=== PATIENT | female | born 1940 | race Caucasian/White ===

== ENCOUNTER 2018-01-11 16:14 | Observation (INO) | payer OTHER ==
[2018-01-11 18:33] LABS: Urine Appearance ND; Urine Bilirubin ND (NEG); Urine Blood ND (NEG); Urine Color OTHER; Urine Glucose ND (NEG); Urine Microscopic Reflex ORDER UMIC; Urine Protein ND (NEG); Urine Specific Gravity ND (1.005-1.030); Urine Urobilinogen ND mg/dL (0.2-1.0); Urine pH ND (5.0-7.0)
[2018-01-11 18:37] LABS: Absolute Lymphocytes (CBC) 2.6 K/uL (0.7-4.9); Absolute Monocytes 0.8 K/uL (0.1-1.3); Absolute Neutrophil 5.3 K/uL (1.8-8.0); Basophils % 1.2 % (0-1.3); Eosinophils % 2.5 % (0-4.4); Hematocrit 41.1 % (36.0-45.0); Lymphocytes % 29.1 % (15.3-44.8); MCH 33.6 pg (27.0-35.0); MCV 100.6 fL (80-100); MPV 8.8 fL (7.6-11.3); Monocytes % 8.7 % (3.3-12.3); RBC Red Blood Cell Count 4.09 M/uL (3.86-4.86)
[2018-01-11 18:43] LABS: Protime INR 0.99
[2018-01-11 18:51] LABS: Urine Bacteria 20-50 /HPF (<20); Urine Culture Reflex Order REFLEXED
[2018-01-11 19:39] LABS: Bilirubin Direct 0.1 mg/dL (0-0.2); Bilirubin Total 0.3 mg/dL (0.2-1.0); Phosphorus 3.6 mg/dL (2.5-4.9); Potassium 3.7 mmol/L (3.5-5.1); Protein, Total 6.7 g/dL (6.4-8.2); Thyroid Stimulating Hormone 2.84 uIU/mL (0.360-3.740)
[2018-01-11 20:08] VITALS: BMI 34.9
[2018-01-11] MEDS ORDERED: ALBUTEROL 2.5 MG/3 ML NEB SOL NEB PRN (20:58)
[2018-01-11] MEDS ORDERED: CEFTRIAXONE 1 GM/NS 50 ML 1 GM/50 ML BAG IV SCH (21:00)
[2018-01-11] MEDS ORDERED: DIPHENHYDRAMINE 25 MG TAB/CAP PO PRN (21:01)
[2018-01-11] MEDS ORDERED: LOPERAMIDE HCL 2 MG CAPSULE PO PRN (21:03)
[2018-01-11] MEDS ORDERED: ONDANSETRON 4 MG (ODT) TAB PO PRN (21:03)
[2018-01-11] MEDS ORDERED: POLYETHYL GLY 3350 17 GM/DOSE PO PRN (21:04)
--- NOTE | 2018-01-11 21:49 | RAD REPORT ---
EXAM DESCRIPTION: Ino Lim (2 Views)01/11/2018 9:42 pm CLINICAL HISTORY: Cough COMPARISON: July 2017 FINDINGS: The lungs appear clear of acute infiltrate. The heart is borderline enlarged IMPRESSION: No acute abnormalities displayed
[2018-01-11] MEDS: NACHLORIDE 0.45% 1,000 ML IV SCH (21:58)
--- NOTE | 2018-01-11 22:00 | RAD REPORT ---
EXAM DESCRIPTION: CT - Abdomen Pelvis W Contrast - 01/11/2018 9:29 pm CLINICAL HISTORY: Abdominal pain/urinary tract infection/dysuria COMPARISON: none. TECHNIQUE: Computed axial tomography of the abdomen pelvis was obtained. 100 cc Isovue-300 was admin istered intravenously. Oral contrast was given All CT scans are performed using dose optimization technique as appropriate and may include automated exposure control or mA/KV adjustment according to patient size. FINDINGS: An 11 millimeter left lower lobe nodule is unchanged T He liver, pancreas, and adrenals appear unremarkable. Small renal cysts are present. A 25 millimeter splenic cyst contains a small peripheral calcification There is no evidence of diverticulitis. The bladder wall is thickened with stranding in the adjacent fat Postsurgical changes involve the lumbar spine. A tiny umbilical hernia is seen IMPRESSION: Thickened bladder wall with stranding in the adjacent fat indicating a cystitis 11 millimeter left lower lobe nodule unchanged from July 2017. However it has enlarged from August 2010 exam in which it measured 6 millimeters. As was previously mentioned a nuclear medicine PET-CT scan is recommended
[2018-01-11] MEDS: TOPIRAMATE 100 MG TAB PO SCH (22:17)
[2018-01-11] MEDS: QUETIAPINE 100MG TAB PO SCH (22:17)
[2018-01-12] MEDS ORDERED: NA CHLORIDE 0.9% 50 ML ONE (00:03)
[2018-01-12] MEDS ORDERED: CEFTRIAXONE 1000 MG/VIAL ONE (00:09)
[2018-01-12] MEDS: ALBUTEROL 2.5 MG/3 ML NEB SOL NEB SCH ×4 (02:00→20:17)
[2018-01-12] MEDS ORDERED: LEVALBUTEROL 1.25 MG/3 ML NEB ONE (03:21)
[2018-01-12 05:02] LABS: Magnesium 1.9 mg/dL (1.8-2.4); Potassium 3.3 mmol/L (3.5-5.1)
[2018-01-12 05:46] LABS: Absolute Lymphocytes (CBC) 2.3 K/uL (0.7-4.9); Absolute Monocytes 0.7 K/uL (0.1-1.3); Absolute Neutrophil 3.7 K/uL (1.8-8.0); Basophils % 1.1 % (0-1.3); Eosinophils % 3.5 % (0-4.4); Hematocrit 37.2 % (36.0-45.0); Lymphocytes % 32.1 % (15.3-44.8); MCH 33.8 pg (27.0-35.0); MCV 100.2 fL (80-100); MPV 8.8 fL (7.6-11.3); Monocytes % 9.9 % (3.3-12.3); RBC Red Blood Cell Count 3.71 M/uL (3.86-4.86)
--- NOTE | 2018-01-12 07:57 | P.CNS ---
Date of Consult: 01/12/18 [employer] Kn[employer] Consult requested. Pt. is a 77 year old , s/p hysterectomy for abnormal pap smears in 1985. She is hospitilized with an uncomplicated UTI, with no hx of fever or flank pain. By history this is her 5th UTI since August. She has no hx of bladder support surgery. There are no documents to review on chart other than CT, which is suggestive only of inflammation around bladder. I don't suspect licensed direct entry midwife origen for her infections and would suggest outpt. evaluation by a urologist. Perhaps a 6 month course of suppressive therapy with trimethoprim would be appropriate to consider.
[2018-01-12] MEDS ORDERED: INFLUENZA VACCINE (for 3y+) 0.5 ML DOSE IMVAC ONE (08:00)
[2018-01-12] MEDS ORDERED: METOPROLOL XL 50 MG TAB PO SCH (09:00)
[2018-01-12] MEDS ORDERED: DULOXETINE 20 MG CAP PO SCH (09:00)
[2018-01-12] MEDS ORDERED: DULOXETINE 30 MG CAP PO SCH (09:00)
--- NOTE | 2018-01-12 09:26 | EKG ---
Test Date: 2018-01-11 Test Time: 17:53:04 [employer]: [employer] MEASUREMENT RESULTS: Intervals: Rate: 56 GA: 168 QRSD: 86 QT: 446 QTc: 430 [place]: P: 0 GA: 168 QRS: 43 T: 41 INTERPRETIVE STATEMENTS: Sinus bradycardia Otherwise normal ECG Compared to ECG 08/07/2011 19:53:12 Sinus rhythm no longer present ST (T wave) deviation no longer present Electronically Signed On 01-12-18 09:24:10 CDT by Luis Reveles
[2018-01-12] MEDS: DULOXETINE 30 MG CAP PO SCH ×2 (10:16→21:17)
[2018-01-12] MEDS: POTASSIUM CL SA 10 MEQ TAB PO SCH ×2 (10:16→21:16)
[2018-01-12] MEDS: GABAPENTIN 300 MG CAP PO SCH ×3 (10:17→21:17)
[2018-01-12] MEDS: CEFTRIAXONE/SWI 1gm 1 GM/10 ML SYR IV SCH ×2 (10:17→21:18)
[2018-01-12] MEDS: TOPIRAMATE 100 MG TAB PO SCH ×3 (10:18→21:49)
[2018-01-12] MEDS: MEMANTINE HCL 10 MG TABLET PO SCH ×2 (10:19→21:18)
[2018-01-12] MEDS: ENOXAPARIN 40 MG/0.4 ML SQ SCH (10:22)
[2018-01-12] MEDS: METOPROLOL XL 50 MG TAB PO SCH ×2 (10:22→18:26)
[2018-01-12] MEDS: TRAMADOL HCL 50 MG TAB PO SCH ×2 (12:21→21:17)
[2018-01-12] MEDS: INDAPAMIDE 1.25 MG TAB PO SCH (12:22)
[2018-01-12 12:39] LABS: Urine Appearance CLOUDY; Urine Bilirubin NEGATIVE (NEG); Urine Blood 2+ (NEG); Urine Color DK YELLOW; Urine Glucose NEGATIVE (NEG); Urine Protein 1+ (NEG); Urine Specific Gravity 1.015 (1.005-1.030); Urine Urobilinogen 0.2 mg/dL (0.2-1.0); Urine pH 7.5 (5.0-7.0)
[2018-01-12 12:47] LABS: Urine Microscopic Reflex ORDER UMIC
[2018-01-12 13:08] LABS: Urine Bacteria 20-50 /HPF (<20); Urine Culture Reflex Order REFLEXED
--- NOTE | 2018-01-12 14:13 | CON ---
History Of Present Illness: This is a pleasant 77-year-old lady, a patient of Dr. Dougherty, who has bee n having recurrent urinary tract infections. She said she has had 5 infections since August of this yea r, which is almost one every month or so. Last time on 12/03/2017, she had E coli that was pansensit giselle and in April 2016, she had a Klebsiella pneumoniae infection that was pretty much pansensitive with intermediate sensitivity to cephalosporin, resistant to nitrofurantoin and the computer shows an other E coli infection in March 2016 that was pansensitive. So, according to the computer, she romero s an occasional UTI, but she said she has had 5 since August. She has no other urinary symptoms except burning normally. She does not have any frequency, hesitancy, nocturia, decrease in force of stream or postvoid dribbling. She only drinks 1 to 2 small bottles of water a day, so she is definitely deh ydrated. She needs to increase her fluids. Continue taking probiotics, take cranberry juice and D-M annose 1500 mg a day for prevention. She said her mom had these problems too when she got older, but last year and so she did pretty well. Past Medical History: History of benign hypertension, obstructive sleep apnea, Meniere disease, esop hageal stenosis. Past Surgical History: Tonsillectomy, breast biopsy, hysterectomy, appendectomy, left mastectomy, to rodger right knee replacement. Allergies: CLINDAMYCIN CAUSES RASH, PENICILLIN CAUSES RASH, SULFA CAUSES RASH, PROPOXYPHENE FROM ANDREA VOCET, AND SOME UNKNOWN ALLERGIES, STRAWBERRY SOME RASH. Active Medications: Albuterol, Lipitor, ceftriaxone now, Benadryl, Cymbalta, Lovenox, Neurontin, Sona ol, Imodium, Namenda, Zofran GlycoLax, potassium, Seroquel, Topamax, Ultram. Social History: No tobacco. No smoking. Family History: Noncontributory. Review of Systems: 10-point review of systems is essentially negative. Physical Examination: GENERAL: She is lying in bed, resting comfortable. Normal-appearing patient. VITAL SIGNS: Temperature 97.2, pulse 57, respirations 16, blood pressure 99/54, sats 93%. HEENT: Atraumatic, normocephalic. CHEST: Clear. HEART: S1, S2. ABDOMEN: Soft, nontender. EXTREMITIES: Normal range of motion. Laboratory Data: White count 7.0, H and H is 12.5 and 37, platelet 199. Coagulation studies normal with a PTT 22.5. Chemistry shows slightly low potassium 3.3 with sodium 139, chloride 103, carbon di oxide 24, BUN 16, creatinine 1.0, GFR 54, glucose 96, calcium 8.2. Urine culture is pending. The UA shows 10 to 20 rbc's, greater than 50 wbc's and bacteria 20 to 50. Assessment: Recurrent urinary tract infection. Plan: Await for culture and sensitivity based on antibiotics and that she needs to hydrate a lot mor e. She should be drinking about half her body weight in ounces per day, taking probiotics every day, cranberry pills and D-Mannose [address] scan was reviewed and there are no significan t finding for any cause for UTI. No stones. No hydronephrosis and some inflammation around the blad leora consistent with a UTI. She may also need possible prophylactic once a day antibiotics in the nex t 6 months. ROBERT/RADHA Voice ID: [id number] Report ID: [id number]
--- NOTE | 2018-01-12 17:58 | PN ---
Subjective: Ms. Calabrese has had about 5 to 6 UTI's with treatment given for Cipro and Ceftin off and on. Cultures have been sensitive to this antibiotics. She fails to improve, continues to have lowe r abdominal pain and severely putrid smell of the urine, so I decided to admit her for IV antibiotics and have consulted from SOFTWARE ENGINEER ADVISOR and Urology. Dr. Marti saw the patient this morning, he did not fin d anything obvious on his side. I ordered a CT scan of abdomen pelvis with contrast, which showed no major findings. She does have a nodule, which is in the lung, which is about 11 mm slightly bigger than before about 5 years ago. On investigations, as above plus potassium 2.2, BUN, creatinine megan l. UA is positive for more than 50 WBCs and leukocyte esterase is pending. Assessment And Plan: 1.Recurrent urinary tract infection. Consult Dr. Nolen. Possible cystoscopy. Prognosis remains gu arded. She had extremely poor hygiene at home and that is one reason why she continues to have infec tions. We do not find any gynecological reasons on the CT scan of abdomen and pelvis did not show ob struction of urinary flow. Now we need a cystoscopy to figure out anything inside the bladder, which could be causing these bladder infections like a bladder cancer. 2.Diabetes, high blood pressure, degenerative joint disease. Continues to be stable at this point. JONATHAN/RADHA Voice ID: [id number] Report ID: [id number]
--- NOTE | 2018-01-12 18:23 | RAD REPORT ---
EXAM DESCRIPTION: RAD - Chest Single View - 01/12/2018 6:00 pm CLINICAL HISTORY: PICC line placement COMPARISON: January 11 FINDINGS: Portable chest was obtained following placement of a right upper extremity PICC line. The catheter tip is in the mid SVC.
[2018-01-12] MEDS: ATORVASTATIN 20 MG TAB PO SCH (21:16)
[2018-01-12] MEDS: QUETIAPINE 100MG TAB PO SCH (21:18)
[2018-01-13] MEDS: ALBUTEROL 2.5 MG/3 ML NEB SOL NEB SCH ×4 (01:29→19:56)
[2018-01-13 05:22] LABS: Absolute Lymphocytes (CBC) 2.5 K/uL (0.7-4.9); Absolute Monocytes 0.6 K/uL (0.1-1.3); Absolute Neutrophil 3.2 K/uL (1.8-8.0); Eosinophils % 3.1 % (0-4.4); Lymphocytes % 38.6 % (15.3-44.8); MCH 33.8 pg (27.0-35.0); MCV 99.3 fL (80-100); MPV 9.1 fL (7.6-11.3); Monocytes % 8.4 % (3.3-12.3); RBC Red Blood Cell Count 3.73 M/uL (3.86-4.86)
[2018-01-13 05:36] LABS: Potassium 3.1 mmol/L (3.5-5.1)
[2018-01-13] MEDS: METOPROLOL XL 50 MG TAB PO SCH ×2 (05:43→17:48)
[2018-01-13] MEDS: NACHLORIDE 0.45% 1,000 ML IV SCH (05:43)
[2018-01-13] MEDS: POTASSIUM CL SA 10 MEQ TAB PO SCH ×2 (07:42→21:17)
[2018-01-13] MEDS: TRAMADOL HCL 50 MG TAB PO SCH ×2 (09:00→21:00)
[2018-01-13] MEDS: DULOXETINE 30 MG CAP PO SCH ×2 (09:22→21:17)
[2018-01-13] MEDS: ENOXAPARIN 40 MG/0.4 ML SQ SCH (09:22)
[2018-01-13] MEDS: INDAPAMIDE 1.25 MG TAB PO SCH (09:23)
[2018-01-13] MEDS: CEFTRIAXONE/SWI 1gm 1 GM/10 ML SYR IV SCH ×2 (09:26→21:16)
[2018-01-13] MEDS: MEMANTINE HCL 10 MG TABLET PO SCH ×2 (09:26→21:18)
[2018-01-13] MEDS: GABAPENTIN 300 MG CAP PO SCH ×3 (09:26→21:17)
[2018-01-13] MEDS: TOPIRAMATE 100 MG TAB PO SCH ×2 (09:26→21:19)
--- NOTE | 2018-01-13 18:22 | PN ---
Subjective: The patient is stable. Multiple family members present in the room of 5. Objective: Her urine culture came back E. coli, pansensitive. Vital Sign: She is afebrile, stable. Her white count is still normal at 6.6, H and H 12.6 and 37, platelet 218. . Assessment And Plan: Plan is to send the patient home. She is to bathe every day. Apparently, she was not doing that at home. She is to drink lots of water. We are going to give her Macrobid 1 p.o. b.i.d. with food #14, then she is to go on Macrodantin 50 mg 1 p.o. daily with food for 90 days with 1 refill, and she can follow up with me in 1 week. She is okay for discharge today. LOGAN Voice ID: [id number] Report ID: [id number]
[2018-01-13] MEDS: ATORVASTATIN 20 MG TAB PO SCH (21:18)
[2018-01-13] MEDS: QUETIAPINE 100MG TAB PO SCH (21:18)
[2018-01-14] MEDS: ALBUTEROL 2.5 MG/3 ML NEB SOL NEB SCH ×3 (03:53→14:00)
[2018-01-14 05:11] LABS: Absolute Lymphocytes (CBC) 2.6 K/uL (0.7-4.9); Absolute Monocytes 0.6 K/uL (0.1-1.3); Absolute Neutrophil 3.1 K/uL (1.8-8.0); Eosinophils % 3.8 % (0-4.4); Lymphocytes % 38.5 % (15.3-44.8); MCH 33.9 pg (27.0-35.0); MCV 100.6 fL (80-100); MPV 8.5 fL (7.6-11.3); Monocytes % 9.5 % (3.3-12.3); RBC Red Blood Cell Count 3.68 M/uL (3.86-4.86)
[2018-01-14 05:18] LABS: Magnesium 1.8 mg/dL (1.8-2.4); Potassium 3.2 mmol/L (3.5-5.1)
[2018-01-14] MEDS ORDERED: POTASSIUM CL SA 10 MEQ TAB PO ONE (08:21)
[2018-01-14] MEDS: POTASSIUM CL SA 10 MEQ TAB PO SCH (08:22)
[2018-01-14] MEDS: CEFTRIAXONE/SWI 1gm 1 GM/10 ML SYR IV SCH (08:35)
[2018-01-14] MEDS: MEMANTINE HCL 10 MG TABLET PO SCH (08:35)
[2018-01-14] MEDS: GABAPENTIN 300 MG CAP PO SCH (08:36)
[2018-01-14] MEDS: DULOXETINE 30 MG CAP PO SCH (08:37)
[2018-01-14] MEDS: METOPROLOL XL 50 MG TAB PO SCH (08:37)
[2018-01-14] MEDS: TOPIRAMATE 100 MG TAB PO SCH (08:40)
[2018-01-14] MEDS: ENOXAPARIN 40 MG/0.4 ML SQ SCH (08:40)
[2018-01-14] MEDS: INDAPAMIDE 1.25 MG TAB PO SCH (09:00)
--- NOTE | 2018-01-14 09:15 | PN ---
Subjective: The patient has improved about 50%. Denies any chest pain, nausea , vomiting, diarrhea, or coughing. Physical Examination: Vital Signs: Blood pressure 118/59. Pulse is 55. CHEST: Clear. Heart: Regular. Abdomen: No guarding, rebound, or rigidity. On full investigation, CT abdomen, chest, and pelvis did not show any abnormalities. Dr. Nolen performed postvoid residual. She has normal residual. Her urine culture is growing gram-negative bacilli, E coli, and seems to be sensitive to all the antibiotics. Assessment And Planning: Recurrent UTI. In the past, the patient has had multiple antibiotics given for about the last 4 months for the same bacteria. 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 She does not get bath possibly on a daily basis, not maybe once a week. Her clothes have severe smell all the time. Her house is full of junk according to home health nurses and the care given by the people around is probably not good enough to clean her area appropriately, so she does not get infections, which is what I stressed today with the family, which is daughter that she has to be clean every single day, shower every day, and clean from front to back, use Bidet to spray water and clean the area after every time she urinates or has bowel movement , and keep the area very dry in the amanda-area to prevent infection. JONATHAN/RADHA Voice ID: [id number] Report ID: [id number]
[2018-01-14 10:21] VITALS: TEMP 98.8
[2018-01-14] MEDS: TRAMADOL HCL 50 MG TAB PO SCH (11:16)
[2018-01-14 11:34] VITALS: O2SAT 90
[2018-01-14 14:34] VITALS: BP 128/58
--- NOTE | 2018-01-14 17:30 | PN ---
Subjective: The patient is doing well, ready for discharge. Objective: Vital Signs: Afebrile. Vital signs are stable. Laboratory Data: Labs are stable. White count 6.6, H and H 12.5 and 37.0, platelet count 204. Assessment: Escherichia coli. Urinary tract infection. Plan: To shower daily, take her medications, hydrate daily well. Follow up in a month. Has been on prophylaxis for 6 months. LOGAN Voice ID: [id number] Report ID: [id number]
--- NOTE | 2018-01-15 06:37 | DS ---
Date of Discharge: 01/14/2018 Final Diagnosis: Recurrent severe urinary tract infection. Secondary Diagnoses: Diabetes, poor hygiene, high blood pressure, osteoarthritis. Hospital Course: The patient is a 77-year-old with past medical history of above medical problems, h as had 5 infections in the last 5-6 months of UTI, but on further details we find out that she is wip ing her urine area back to front and the same for the stool area, and the hygiene is poor. I have ad vised family to get Bidet to clean to have hooked up on the commode and clean her amanda area properly on daily basis, get shower every day, and get a very good hygiene which will improve and prevent the urinary tract infections. She does not have any physical reasons why she will have UTI besides that. CT scan of abdomen and pelvis with contrast, negative. No postvoid residual in the urinary bladder . Patient is discharged in stable condition on Ceftin 250 b.i.d. She grew E coli which is sensitive to Ceftin 250 b.i.d. for about 10 days, and further details given about the UTI. JOANTHAN/RADHA Voice ID: [id number] Report ID: [id number]
[2018-01-15 16:08] LABS: Vitamin D 1,25-Dihydroxy Total 27 pg/mL (18-72); Vitamin D,1,25-OH2, D2 <8 pg/mL
== END 2018-01-14 15:20 | disposition home or self-care (01) ==
LOC: INTOOBSV 16:48 → 2ND 16:48
PROVIDERS: ADMIT Internal Medicine; ATTEND Internal Medicine
DX: N39.0 Urinary tract infection, site not specified (principal); B96.20 Unspecified Escherichia coli [E. coli] as the cause of diseases classified elsewhere; E11.9 Type 2 diabetes mellitus without complications; M19.90 Unspecified osteoarthritis, unspecified site; I10 Essential (primary) hypertension; R46.0 Very low level of personal hygiene; Z23 Encounter for immunization; Z88.0 Allergy status to penicillin; Z88.2 Allergy status to sulfonamides
CPT/HCPCS: 36415 ×3; 71045; 71046; 74177; 80048 ×4; 80076; 82607; 82652; 83735 ×4; 84100; 84443; 85025 ×4; 85610; 85730; 87040; 87077; 87086; 87088; 87186; 93005; 94640; G0008; G0378; G0379; J0696 ×5; J1650 ×3; Q2035; Q9967; 81003; 81015

== ENCOUNTER 2019-02-05 08:45 | Emergency (ER) | payer OTHER ==
[2019-02-05 10:30] LABS: Urine RBC LOADED /HPF (NONE SEEN)
[2019-02-05 10:31] LABS: Urine Bacteria >50 /HPF (<20); Urine Culture Reflex Order REFLEXED; Urine Mucus SLIGHT /HPF (NONE SEEN)
[2019-02-05 10:55] LABS: Urine Blood 3+ (NEG); Urine Glucose TRACE (NEG); Urine Protein 3+ (NEG)
--- NOTE | 2019-02-05 11:27 | ER ---
Nurse's Notes [facility] Name: Agnes Calabrese Age: 79 yrs Sex: Female : 1940 Arrival Date: 02/05/2019 Time: 08:47 Bed 8 Private MD: Garrett Dougherty V Diagnosis: Urinary tract infection, site not specified Presentation: 02/05 09:01 Presenting complaint: Patient states: Pain with urination and urinary frequency that ss began at 0500 this AM. Patient was treated for UTI 1 month ago, and is on maintenance dose of Macrodantin for recurrent UTI. Transition of care: patient was not received from another setting of care. Onset of symptoms was February 05, 2019. Risk Assessment: Do you want to hurt yourself or someone else? Patient reports no desire to harm self or others. Initial Sepsis Screen: Does the patient have a suspected source of infection? Yes: Dysuria/Frequency/Urgency/UTI. Care prior to arrival: None. 09:01 Method Of Arrival: Ambulatory ss 09:01 Acuity: WARREN 4 ss 09:02 Initial Sepsis Screen: Does the patient meet any 2 criteria? No. Patient's initial hb sepsis screen is negative. Historical: - Allergies: 09:02 clindamycin HCl (bulk); hb 09:02 Darvocet-N 100; hb 09:02 PENICILLINS; hb 09:02 Sulfa (Sulfonamide Antibiotics); hb - Home Meds: 09:02 duloxetine 60 mg Oral cpDR 2 caps once daily [Active]; Macrodantin 50 mg Oral cap 1 cap hb once daily [Active]; metoprolol succinate 50 mg Oral Tb24 1 tab once daily [Active]; potassium chloride 10 mEq Oral cpER 1 cap 2 times per day [Active]; Seroquel 100 mg Oral tab daily [Active]; simvastatin 40 mg Oral tab 1 tab once daily [Active]; spironolactone 20mg Oral once daily [Active]; tramadol 50 mg Oral tab 2 times daily [Active]; - PMHx: 09:02 Cancer; Depression; Fibromyalgia; GERD; insomnia; lymphedema; skipped heart beats; hb - PSHx: 09:02 cervical fusion; knee replacements; Appendectomy; lumbar fusion; Hysterectomy; hb Mastectomy, Left; - Immunization history:: Adult Immunizations up to date, Adult Immunizations up to date. - Social history:: Smoking status: Patient/guardian denies using tobacco, Smoking status: Patient/guardian denies using tobacco. - Ebola Screening: : No symptoms or risks identified at this time Patient denies exposure to infectious person Patient denies travel to an Ebola-affected area in the 21 days before illness onset. Screenin:01 Abuse screen: Denies threats or abuse. Denies injuries from another. Nutritional hb screening: No deficits noted. Tuberculosis screening: No symptoms or risk factors identified. Fall Risk None identified. Assessment: 09:00 General: Appears in no apparent distress. Behavior is calm, cooperative. Pain: Pain hb currently is 7 out of 10 on a pain scale. Neuro: Level of Consciousness is awake, alert, obeys commands, Oriented to person, place, time, situation. Cardiovascular: Capillary refill < 3 seconds Patient's skin is warm and dry. Respiratory: Airway is patent Respiratory effort is even, unlabored, Respiratory pattern is regular, symmetrical. GI: Abdomen is non-distended, Reports lower abdominal pain. : Reports burning with urination, pain in suprapubic area with urination. EENT: No signs and/or symptoms were reported regarding the EENT system. Derm: Skin is pink, warm \T\ dry. Musculoskeletal: No signs and/or symptoms reported regarding the musculoskeletal system. 09:52 Reassessment: Patient appears in no apparent distress at this time. No changes from hb previously documented assessment. Patient and/or family updated on plan of care and expected duration. Pain level reassessed. Patient is alert, oriented x 3, equal unlabored respirations, skin warm/dry/pink. 10:31 Reassessment: Patient appears in no apparent distress at this time. No changes from hb previously documented assessment. Patient and/or family updated on plan of care and expected duration. Pain level reassessed. Patient is alert, oriented x 3, equal unlabored respirations, skin warm/dry/pink. 11:30 Reassessment: Patient appears in no apparent distress at this time. Patient and/or hb family updated on plan of care and expected duration. Pain level reassessed. Patient is alert, oriented x 3, equal unlabored respirations, skin warm/dry/pink. Vital Signs: 09:01 BP 130 / 77; Pulse 71; Resp 18; Temp 97.8(TE); Pulse Ox 95% ; Weight 96.62 kg; Height 5 ft. 3 in. (160.02 cm); Pain 8/10; 10:15 BP 128 / 74; Pulse 70; Resp 14; Pulse Ox 100% on R/A; hb 11:30 BP 126 / 76; Pulse 68; Resp 16; Pulse Ox 100% on R/A; hb 09:01 Body Mass Index 37.73 (96.62 kg, 160.02 cm) ED Course: 08:47 Patient arrived in ED. ag5 08:47 Garrett Dougherty MD is Private Physician. ag5 08:54 Palomo Ferreira MD is Attending Physician. 09:01 Charis Hong RN is Primary Nurse. hb 09:01 Arm band placed on. hb 09:02 Triage completed. ss 09:11 Patient has correct armband on for positive identification. Bed in low position. Call hb light in reach. Side rails up X 1. 11:27 Garrett Dougherty MD is Referral Physician. gs 11:59 No provider procedures requiring assistance completed. Patient did not have IV access hb during this emergency room visit. Administered Medications: 11:41 Drug: Rocephin (cefTRIAXone) 1 grams Route: IM; Site: right ventrogluteal; hb 11:59 Follow up: Response: No adverse reaction hb Outcome: 11:27 Discharge ordered by . gs 11:59 Discharged to home ambulatory. hb 11:59 Condition: stable 11:59 Discharge instructions given to patient, Instructed on discharge instructions, follow up and referral plans. medication usage, Demonstrated understanding of instructions, follow-up care, medications, Prescriptions given X 1. 12:00 Patient left the ED. hb Signatures: Korina Trevino RN RN Charis Hong RN RN Palomo Ferreira MD MD Dav Vasquez ag5 Corrections: (The following items were deleted from the chart) 09:03 09:01 Initial Sepsis Screen: Does the patient meet any 2 criteria? hb hb
--- NOTE | 2019-02-05 11:28 | EDPHYS ---
Physician Documentation [facility] Name: Agnes Calabrese Age: 79 yrs Sex: Female : 1940 Arrival Date: 02/05/2019 Time: 08:47 Bed 8 Private MD: Garrett Dougherty V ED Physician Palomo Ferreira HPI: 02/05 11:25 This 79 yrs old Female presents to ER via Ambulatory with complaints of Pain gs With Urination. 11:25 Onset: The symptoms/episode began/occurred this morning. Associated signs and symptoms: gs Pertinent negatives: fever, vomiting. Severity of symptoms: At their worst the symptoms were moderate, in the emergency department the symptoms are unchanged. The patient has experienced similar episodes in the past, a few times. The patient has not recently seen a physician. Historical: - Allergies: 09:02 clindamycin HCl (bulk); hb 09:02 Darvocet-N 100; hb 09:02 PENICILLINS; hb 09:02 Sulfa (Sulfonamide Antibiotics); hb - Home Meds: 09:02 duloxetine 60 mg Oral cpDR 2 caps once daily [Active]; Macrodantin 50 mg Oral cap 1 cap hb once daily [Active]; metoprolol succinate 50 mg Oral Tb24 1 tab once daily [Active]; potassium chloride 10 mEq Oral cpER 1 cap 2 times per day [Active]; Seroquel 100 mg Oral tab daily [Active]; simvastatin 40 mg Oral tab 1 tab once daily [Active]; spironolactone 20mg Oral once daily [Active]; tramadol 50 mg Oral tab 2 times daily [Active]; - PMHx: 09:02 Cancer; Depression; Fibromyalgia; GERD; insomnia; lymphedema; skipped heart beats; hb - PSHx: 09:02 cervical fusion; knee replacements; Appendectomy; lumbar fusion; Hysterectomy; hb Mastectomy, Left; - Immunization history:: Adult Immunizations up to date, Adult Immunizations up to date. - Social history:: Smoking status: Patient/guardian denies using tobacco, Smoking status: Patient/guardian denies using tobacco. - Ebola Screening: : No symptoms or risks identified at this time Patient denies exposure to infectious person Patient denies travel to an Ebola-affected area in the 21 days before illness onset. ROS: 11:25 Abdomen/GI: Positive for diarrhea, chronic. gs 11:25 All other systems are negative. Exam: 11:25 Head/Face: Normocephalic, atraumatic. Eyes: Pupils equal round and reactive to light, gs extra-ocular motions intact. Lids and lashes normal. Conjunctiva and sclera are non-icteric and not injected. Cornea within normal limits. Periorbital areas with no swelling, redness, or edema. ENT: Nares patent. No nasal discharge, no septal abnormalities noted. Tympanic membranes are normal and external auditory canals are clear. Oropharynx with no redness, swelling, or masses, exudates, or evidence of obstruction, uvula midline. Mucous membranes moist. Neck: Trachea midline, no thyromegaly or masses palpated, and no cervical lymphadenopathy. Supple, full range of motion without nuchal rigidity, or vertebral point tenderness. No Meningismus. Chest/axilla: Normal chest wall appearance and motion. Nontender with no deformity. No lesions are appreciated. Cardiovascular: Regular rate and rhythm with a normal S1 and S2. No gallops, murmurs, or rubs. Normal PMI, no JVD. No pulse deficits. Respiratory: Lungs have equal breath sounds bilaterally, clear to auscultation and percussion. No rales, rhonchi or wheezes noted. No increased work of breathing, no retractions or nasal flaring. Abdomen/GI: Soft, non-tender, with normal bowel sounds. No distension or tympany. No guarding or rebound. No evidence of tenderness throughout. Back: No spinal tenderness. No costovertebral tenderness. Full range of motion. Skin: Warm, dry with normal turgor. Normal color with no rashes, no lesions, and no evidence of cellulitis. MS/ Extremity: Pulses equal, no cyanosis. Neurovascular intact. Full, normal range of motion. Neuro: Awake and alert, GCS 15, oriented to person, place, time, and situation. Cranial nerves II-XII grossly intact. Motor strength 5/5 in all extremities. Sensory grossly intact. Cerebellar exam normal. Normal gait. 11:25 Constitutional: The patient appears alert, awake. Vital Signs: 09:01 BP 130 / 77; Pulse 71; Resp 18; Temp 97.8(TE); Pulse Ox 95% ; Weight 96.62 kg; Height 5 ss ft. 3 in. (160.02 cm); Pain 8/10; 10:15 BP 128 / 74; Pulse 70; Resp 14; Pulse Ox 100% on R/A; hb 11:30 BP 126 / 76; Pulse 68; Resp 16; Pulse Ox 100% on R/A; hb 09:01 Body Mass Index 37.73 (96.62 kg, 160.02 cm) MDM: 09:59 Patient medically screened. gs 11:25 Differential diagnosis: urinary tract infection. Data reviewed: vital signs, nurses gs notes, lab test result(s). Counseling: I had a detailed discussion with the patient and/or guardian regarding: lab results, the need for outpatient follow up. Response to treatment: the patient's symptoms have markedly improved after treatment. 02/05 09:03 Order name: Urine Microscopic Only; Complete Time: 11:01 gs 02/05 09:55 Order name: Urine Dipstick--Ancillary (enter results); Complete Time: 11:01 eb 02/05 09:03 Order name: Urine Dipstick-Ancillary (obtain specimen); Complete Time: 09:21 02/05 10:33 Order name: Urine Culture EDMS Administered Medications: 11:41 Drug: Rocephin (cefTRIAXone) 1 grams Route: IM; Site: right ventrogluteal; hb 11:59 Follow up: Response: No adverse reaction hb Disposition: 02/05/19 11:27 Discharged to Home. Impression: Urinary tract infection, site not specified. - Condition is Stable. - Discharge Instructions: Dysuria, Urinary Tract Infection, Adult. - Prescriptions for Keflex 500 mg Oral Capsule - take 1 capsule by ORAL route every 12 hours for 10 days; 20 capsule. - Medication Reconciliation Form, Thank You Letter, Antibiotic Education, Prescription Opioid Use form. - Follow up: Garrett Dougherty MD; When: 2 - 3 days; Reason: Re-evaluation by your physician. Signatures: [facility] Korina Trevino RN RN Charis Hong RN RN Palomo Ferreira MD MD Corrections: (The following items were deleted from the chart) 12:00 11:27 02/05/2019 11:27 Discharged to Home. Impression: Urinary tract infection, site hb not specified. Condition is Stable. Forms are Medication Reconciliation Form, Thank You Letter, Antibiotic Education, Prescription Opioid Use. Follow up: Garrett Dougherty; When: 2 - 3 days; Reason: Re-evaluation by your physician. gs
[2019-02-05] MEDS ORDERED: CEFTRIAXONE 1000 MG/VIAL ONE (11:34)
[2019-02-05] MEDS ORDERED: LIDOCAINE 1% MPF 2 ML AMPULE ONE (11:34)
[2019-02-05 12:06] VITALS: TEMP 97.8
[2019-02-05 12:07] VITALS: O2SAT 100
[2019-02-05 12:08] VITALS: BP 126/76
== END 2019-02-05 12:00 | disposition home or self-care (01) ==
LOC: ER 08:45
DX: N39.0 Urinary tract infection, site not specified (principal); F32.9 Major depressive disorder, single episode, unspecified; Z85.9 Personal history of malignant neoplasm, unspecified; Z88.0 Allergy status to penicillin; Z88.2 Allergy status to sulfonamides; Z88.3 Allergy status to other anti-infective agents; Z88.5 Allergy status to narcotic agent
CPT/HCPCS: 87088; 96372; 99283; J2001; 81003; 81015; 87086

== ENCOUNTER 2019-05-13 12:55 | Emergency (ER) | payer OTHER ==
[2019-05-13] MEDS ORDERED: TRAMADOL HCL 50 MG TAB ONE (13:28)
--- NOTE | 2019-05-13 13:47 | RAD REPORT ---
EXAM DESCRIPTION: CT - Head Brain Wo Cont - 05/13/2019 1:39 pm CLINICAL HISTORY: HEADACHE Trauma, head injury COMPARISON: Facial Bones W/ Mpr dated 05/13/2019; HEAD BRAIN W O CONTRAST dated 11/24/2012 TECHNIQUE: All CT scans are performed using dose optimization technique as appropriate and may inclu de automated exposure control or mA/KV adjustment according to patient size. FINDINGS: No intracranial hemorrhage, hydrocephalus or extra-axial fluid collection.No areas of brai n edema or evidence of midline shift. The paranasal sinuses and mastoids are clear. The calvarium is intact. IMPRESSION: No acute intracranial abnormality.
--- NOTE | 2019-05-13 13:51 | RAD REPORT ---
EXAM DESCRIPTION: CT - CTFB CLINICAL HISTORY: FACIAL PAIN Trauma, facial pain and injury COMPARISON: No comparisons TECHNIQUE: Axial 2 mm thick images of the face were obtained with sagittal and coronal reconstructio n images. All CT scans are performed using dose optimization technique as appropriate and may include automated exposure control or mA/KV adjustment according to patient size. FINDINGS: Mild nasal bone fracture is present.The mandible is intact. The globes and orbital contents are grossly unremarkable.The paranasal sinuses and mastoids are clear . IMPRESSION: Nasal bone fracture.
--- NOTE | 2019-05-13 14:07 | ER ---
Nurse's Notes [facility] Name: Agnes Calabrese Age: 79 yrs Sex: Female : 1940 Arrival Date: 05/13/2019 Time: 12:56 Bed 20 Private MD: Garrett Dougherty V Diagnosis: Fracture of nasal bones Presentation: 05/13 13:02 Presenting complaint: Patient states: "I tripped on a curve and fell onto face". Denies aa5 LOC. Pt c/o michael knees and face pain. Transition of care: patient was not received from another setting of care. Onset of symptoms was May 13, 2019. Risk Assessment: Do you want to hurt yourself or someone else? Patient reports no desire to harm self or others. Initial Sepsis Screen: Does the patient meet any 2 criteria? No. Patient's initial sepsis screen is negative. Does the patient have a suspected source of infection? No. Patient's initial sepsis screen is negative. Care prior to arrival: None. 13:02 Acuity: WARREN 4 aa5 13:02 Method Of Arrival: Wheelchair aa5 Historical: - Allergies: 13:04 clindamycin HCl (bulk); aa5 13:04 Darvocet-N 100; aa5 13:04 PENICILLINS; aa5 13:04 Sulfa (Sulfonamide Antibiotics); aa5 - Home Meds: 13:04 duloxetine 60 mg Oral cpDR 2 caps once daily [Active]; Macrodantin 50 mg Oral cap 1 cap aa5 once daily [Active]; metoprolol succinate 50 mg Oral Tb24 1 tab once daily [Active]; potassium chloride 10 mEq Oral cpER 1 cap 2 times per day [Active]; Seroquel 100 mg Oral tab daily [Active]; simvastatin 40 mg Oral tab 1 tab once daily [Active]; spironolactone 20mg Oral once daily [Active]; tramadol 50 mg Oral tab 2 times daily [Active]; - PMHx: 13:04 Cancer; Depression; Fibromyalgia; GERD; insomnia; lymphedema; skipped heart beats; aa5 - PSHx: 13:04 cervical fusion; knee replacements; Appendectomy; lumbar fusion; Hysterectomy; aa5 Mastectomy, Left; - Immunization history:: Adult Immunizations unknown. - Social history:: Smoking status: Patient denies any tobacco usage or history of. - Ebola Screening: : No symptoms or risks identified at this time. Screenin:36 Abuse screen: Denies threats or abuse. Nutritional screening: No deficits noted. tw2 Tuberculosis screening: No symptoms or risk factors identified. Fall Risk Secondary diagnosis (15 points) impaired mobility. Assessment: 13:10 General: Appears in no apparent distress. slender, well groomed, Behavior is calm, tw2 cooperative, appropriate for age. Pain: Complains of pain in face and nose. Neuro: Level of Consciousness is awake, alert, obeys commands, Oriented to person, place, time, situation. Cardiovascular: Patient's skin is warm and dry. Respiratory: Airway is patent Respiratory effort is even, unlabored, Respiratory pattern is regular, symmetrical. GI: No signs and/or symptoms were reported involving the gastrointestinal system. : No signs and/or symptoms were reported regarding the genitourinary system. EENT: Reports pain in nose. Derm: No signs and/or symptoms reported regarding the dermatologic system. Musculoskeletal: Range of motion: intact in all extremities. 14:33 Reassessment: Patient appears in no apparent distress at this time. No changes from tw2 previously documented assessment. Patient and/or family updated on plan of care and expected duration. Pain level reassessed. Patient is alert, oriented x 3, equal unlabored respirations, skin warm/dry/pink. Vital Signs: 13:05 BP 117 / 85; Pulse 58; Resp 16 S; Temp 97.2(TE); Pulse Ox 97% on R/A; Weight 95.25 kg aa5 (R); Height 5 ft. 3 in. (160.02 cm) (R); 13:05 Body Mass Index 37.20 (95.25 kg, 160.02 cm) aa5 ED Course: 12:56 Patient arrived in ED. as 12:57 Garrett Dougherty MD is Private Physician. as 13:03 Triage completed. aa5 13:03 Arm band placed on. aa5 13:06 Bed in low position. Call light in reach. Side rails up X2. synthetic soil blocks pulper on. Pulse tw2 ox on. NIBP on. Warm blanket given. 13:08 [facility] Mercado [facility]C [facility] kb 13:08 Kevin Ordonez MD is Attending Physician. kb 13:15 Nohemi Beard, RN is Primary Nurse. tw2 13:40 CT Head Brain wo Cont In Process Unspecified. EDMS 13:41 CT Facial Bones W/O Con In Process Unspecified. EDMS 14:06 Garrett Dougherty MD is Referral Physician. kb 14:36 No provider procedures requiring assistance completed. Patient did not have IV access tw2 during this emergency room visit. Administered Medications: 13:27 Drug: traMADol 50 mg Route: PO; tw2 14:07 Follow up: Response: No adverse reaction; Pain is decreased tw2 14:08 Drug: Cipro 500 mg Route: PO; tw2 14:22 Follow up: Response: No adverse reaction tw2 Outcome: 14:06 Discharge ordered by MD. kb 14:36 Discharged to home via wheelchair, with family. tw2 14:36 Condition: stable 14:36 Discharge instructions given to patient, family, Instructed on discharge instructions, follow up and referral plans. no drinking with medication, no driving heavy equipment, medication usage, Demonstrated understanding of instructions, follow-up care, medications, Prescriptions given X 2. 14:37 Patient left the ED. tw2 Signatures: Dispatcher [employer] EDMS Nadiya Mercado, IRON PLASTIC BULLET MAKER-C IRON PLASTIC BULLET MAKER-Hanane Thomas Audri, RN RN aa5 Nohemi Beard, RN RN tw2
--- NOTE | 2019-05-13 14:07 | EDPHYS ---
Physician Documentation [facility] Name: Agnes Calabrese Age: 79 yrs Sex: Female : 1940 Arrival Date: 05/13/2019 Time: 12:56 Bed 20 Private MD: Garrett Dougherty V ED Physician Kevin Ordonez HPI: 05/13 13:26 This 79 yrs old Female presents to ER via Wheelchair with complaints of Fall kb Injury. 13:26 Details of fall: The patient fell from an upright position, while walking. Onset: The kb symptoms/episode began/occurred just prior to arrival. Associated injuries: The patient sustained injury to the head, abrasion, pain. Severity of symptoms: At their worst the symptoms were moderate, in the emergency department the symptoms are unchanged. The patient has not experienced similar symptoms in the past. The patient has not recently seen a physician. "I tripped over a curb and face planted." Reports facial pain, headache and bilateral knee pain. Full ROM of all extremities. Ambulates with steady gait.. Historical: - Allergies: 13:04 clindamycin HCl (bulk); aa5 13:04 Darvocet-N 100; aa5 13:04 PENICILLINS; aa5 13:04 Sulfa (Sulfonamide Antibiotics); aa5 - Home Meds: 13:04 duloxetine 60 mg Oral cpDR 2 caps once daily [Active]; Macrodantin 50 mg Oral cap 1 cap aa5 once daily [Active]; metoprolol succinate 50 mg Oral Tb24 1 tab once daily [Active]; potassium chloride 10 mEq Oral cpER 1 cap 2 times per day [Active]; Seroquel 100 mg Oral tab daily [Active]; simvastatin 40 mg Oral tab 1 tab once daily [Active]; spironolactone 20mg Oral once daily [Active]; tramadol 50 mg Oral tab 2 times daily [Active]; - PMHx: 13:04 Cancer; Depression; Fibromyalgia; GERD; insomnia; lymphedema; skipped heart beats; aa5 - PSHx: 13:04 cervical fusion; knee replacements; Appendectomy; lumbar fusion; Hysterectomy; aa5 Mastectomy, Left; - Immunization history:: Adult Immunizations unknown. - Social history:: Smoking status: Patient denies any tobacco usage or history of. - Ebola Screening: : No symptoms or risks identified at this time. ROS: 13:26 Constitutional: Negative for fever, chills, and weight loss, Eyes: Negative for injury, kb pain, redness, and discharge, ENT: Negative for injury, pain, and discharge, Neck: Negative for injury, pain, and swelling, Cardiovascular: Negative for chest pain, palpitations, and edema, Respiratory: Negative for shortness of breath, cough, wheezing, and pleuritic chest pain, Abdomen/GI: Negative for abdominal pain, nausea, vomiting, diarrhea, and constipation, Back: Negative for injury and pain, : Negative for injury, bleeding, discharge, and swelling, MS/Extremity: Negative for injury and deformity. 13:26 Skin: Positive for abrasion(s), ecchymosis, of the face. 13:26 Neuro: Positive for headache. Exam: 13:25 Constitutional: This is a well developed, well nourished patient who is awake, alert, kb and in no acute distress. Eyes: Pupils equal round and reactive to light, extra-ocular motions intact. Lids and lashes normal. Conjunctiva and sclera are non-icteric and not injected. Cornea within normal limits. Periorbital areas with no swelling, redness, or edema. ENT: Nares patent. No nasal discharge, no septal abnormalities noted. Tympanic membranes are normal and external auditory canals are clear. Oropharynx with no redness, swelling, or masses, exudates, or evidence of obstruction, uvula midline. Mucous membranes moist. Neck: Trachea midline, no thyromegaly or masses palpated, and no cervical lymphadenopathy. Supple, full range of motion without nuchal rigidity, or vertebral point tenderness. No Meningismus. Chest/axilla: Normal chest wall appearance and motion. Nontender with no deformity. No lesions are appreciated. Cardiovascular: Regular rate and rhythm with a normal S1 and S2. No gallops, murmurs, or rubs. Normal PMI, no JVD. No pulse deficits. Respiratory: Lungs have equal breath sounds bilaterally, clear to auscultation and percussion. No rales, rhonchi or wheezes noted. No increased work of breathing, no retractions or nasal flaring. Abdomen/GI: Soft, non-tender, with normal bowel sounds. No distension or tympany. No guarding or rebound. No evidence of tenderness throughout. Skin: Warm, dry with normal turgor. Normal color with no rashes, no lesions, and no evidence of cellulitis. MS/ Extremity: Pulses equal, no cyanosis. Neurovascular intact. Full, normal range of motion. Neuro: Awake and alert, GCS 15, oriented to person, place, time, and situation. Cranial nerves II-XII grossly intact. Motor strength 5/5 in all extremities. Sensory grossly intact. Cerebellar exam normal. Normal gait. 13:25 Head/face: Noted is no obvious of injury or deformity except abrasion(s), that are mild, of the nose, ecchymosis, that is mild. Vital Signs: 13:05 BP 117 / 85; Pulse 58; Resp 16 S; Temp 97.2(TE); Pulse Ox 97% on R/A; Weight 95.25 kg aa5 (R); Height 5 ft. 3 in. (160.02 cm) (R); 13:05 Body Mass Index 37.20 (95.25 kg, 160.02 cm) aa5 MDM: 13:09 Patient medically screened. kb 13:25 Data reviewed: vital signs, nurses notes. Data interpreted: Pulse oximetry: on room air kb is 97 %. Interpretation: normal. 13:59 Counseling: I had a detailed discussion with the patient and/or guardian regarding: the kb historical points, exam findings, and any diagnostic results supporting the discharge/admit diagnosis, radiology results, the need for outpatient follow up, a family practitioner, to return to the emergency department if symptoms worsen or persist or if there are any questions or concerns that arise at home. 05/13 13:17 Order name: CT Head Brain wo Cont; Complete Time: 13:53 kb 05/13 13:17 Order name: CT Facial Bones W/O Con; Complete Time: 13:57 kb Administered Medications: 13:27 Drug: traMADol 50 mg Route: PO; tw2 14:07 Follow up: Response: No adverse reaction; Pain is decreased tw2 14:08 Drug: Cipro 500 mg Route: PO; tw2 14:22 Follow up: Response: No adverse reaction tw2 Disposition: 14:50 Co-signature as Attending Physician, Kevin Ordonez MD I agree with the assessment and kdr plan of care. Disposition: 05/13/19 14:06 Discharged to Home. Impression: Fracture of nasal bones. - Condition is Stable. - Discharge Instructions: Nasal Fracture, [id number]. - Prescriptions for Cipro 500 mg Oral Tablet - take 1 tablet by ORAL route every 12 hours for 7 days; 14 tablet. Tramadol 50 mg Oral Tablet - take 1 tablet by ORAL route every 8 hours as needed; 12 tablet. - Medication Reconciliation Form, Thank You Letter, Antibiotic Education, Prescription Opioid Use form. - Follow up: Emergency Department; When: As needed; Reason: Worsening of condition. Follow up: Garrett Dougherty; When: 2 - 3 days; Reason: Recheck today's complaints, Continuance of care, Re-evaluation by your physician. Signatures: Dispatcher [employer] EDMS Nadiya Mercado, TEACHER EDUCATION INSTRUCTOR-C TEACHER EDUCATION INSTRUCTOR-Ckb Kevin Ordonez MD MD kdr Calderon, Audri, RN RN aa5 Nohemi Beard RN RN tw2 Corrections: (The following items were deleted from the chart) 14:37 14:06 05/13/2019 14:06 Discharged to Home. Impression: Fracture of nasal bones. tw2 Condition is Stable. Discharge Instructions: Nasal Fracture, [id number]. Prescriptions for Cipro 500 mg Oral Tablet - take 1 tablet by ORAL route every 12 hours for 7 days; 14 tablet, Tramadol 50 mg Oral Tablet - take 1 tablet by ORAL route every 8 hours as needed; 12 tablet. and Forms are Medication Reconciliation Form, Thank You Letter, Antibiotic Education, Prescription Opioid Use. Follow up: Emergency Department; When: As needed; Reason: Worsening of condition. Follow up: Garrett Dougherty; When: 2 - 3 days; Reason: Recheck today's complaints, Continuance of care, Re-evaluation by your physician. kb
[2019-05-13] MEDS ORDERED: CIPROFLOXACIN HCL 500 MG TAB ONE (14:11)
[2019-05-13 14:55] VITALS: BP 117/85; TEMP 97.2; O2SAT 97
== END 2019-05-13 14:37 | disposition home or self-care (01) ==
LOC: ER 12:55
DX: S02.2XXA Fracture of nasal bones, initial encounter for closed fracture (principal); W01.0XXA Fall on same level from slipping, tripping and stumbling without subsequent striking against object, initial encounter; Y93.9 Activity, unspecified; Y92.9 Unspecified place or not applicable; Z88.0 Allergy status to penicillin; Z88.2 Allergy status to sulfonamides; Z88.3 Allergy status to other anti-infective agents; K21.9 Gastro-esophageal reflux disease without esophagitis; M79.7 Fibromyalgia; G47.00 Insomnia, unspecified
CPT/HCPCS: 70450; 70486; 76377; 99284

== ENCOUNTER 2019-05-26 06:22 | Day surgery (SDC) | payer OTHER ==
[2019-05-26] MEDS ORDERED: D50W 25 GM/50 ML SYRINGE/VIAL IV ONE (06:23)
[2019-05-26] MEDS ORDERED: OXYMETAZOLINE HCL 0.05% 15ML NAS ONE ×5 (06:48→07:21)
[2019-05-26] MEDS ORDERED: Ringers Lactate 1,000 ML IV ONE (06:48)
[2019-05-26] MEDS ORDERED: FENTANYL CITR 100 MCG/2 ML ONE (07:16)
[2019-05-26] MEDS ORDERED: propofoL 200 MG/20 ML VIAL IV ONE (07:16)
[2019-05-26] MEDS ORDERED: LIDOCAINE 2% MPF 5 ML VIAL ONE (07:16)
[2019-05-26] MEDS ORDERED: Mastisol Adhesive Liq ONE (07:21)
[2019-05-26] MEDS ORDERED: ONDANSETRON 4 MG/2 ML VIAL ONE ×2 (08:19→08:36)
[2019-05-26] MEDS: MORPHINE 4 MG/ML SYR ONE ×2 (08:35→08:45)
[2019-05-26 09:21] VITALS: TEMP 97.7
[2019-05-26 10:03] VITALS: BP 110/53; O2SAT 94
== END 2019-05-26 10:00 | disposition home or self-care (01) ==
LOC: OR 06:22
PROVIDERS: ATTEND Otolaryngology
PROC: 0NSBXZZ Reposition Nasal Bone, External Approach (ICD-10-PCS; principal; 2019-05-26 07:30)
DX: S02.2XXA Fracture of nasal bones, initial encounter for closed fracture (principal); J34.89 Other specified disorders of nose and nasal sinuses; K21.9 Gastro-esophageal reflux disease without esophagitis; Z87.891 Personal history of nicotine dependence; Z88.0 Allergy status to penicillin; Z88.2 Allergy status to sulfonamides; Z88.3 Allergy status to other anti-infective agents; Z83.3 Family history of diabetes mellitus; Z80.9 Family history of malignant neoplasm, unspecified; Z82.49 Family history of ischemic heart disease and other diseases of the circulatory system
CPT/HCPCS: 36415; 84132; 21320; J2704; J3010; J7120; J2405

== ENCOUNTER 2019-06-29 14:21 | Emergency (ER) | payer OTHER ==
[2019-06-29] MEDS ORDERED: HYDROCODONE/APAP 10/325 TAB ONE (15:51)
--- NOTE | 2019-06-29 16:22 | RAD REPORT ---
EXAM DESCRIPTION: CT - Head C Spine Cap Wo Con - 06/29/2019 3:53 pm TECHNIQUE: Computed axial tomography of the head and cervical spine was obtained. Coronal and sagitt al reconstruction was performed Computed axial tomography of the chest, abdomen and pelvis was obtained. Contrast was not requested. All CT scans are performed using dose optimization technique as appropriate and may include automated exposure control or mA/KV adjustment according to patient size. CLINICAL HISTORY: Head and neck injury with chest and abdominal pain status post fall COMPARISON: CT abdomen chest 2018 and 2019 FINDINGS: An intracranial bleed is not seen. The ventricles are normal in caliber. An extra-axial fluid collection is not noted. . Fluid within the sinuses/mastoids is not seen. A cervical fracture is not seen. Anterior fusion involves C4 through C7. Mild posterior subluxation C 4 on C5 is without significant change The evaluation of mediastinum, na, vessels, solid organs and bowel are limited secondary to the lac k of contrast administration. A mediastinal hematoma is not noted. A pleural effusion is not seen. A lung contusion is not present. A 12 millimeter left lower lobe nodule unchanged from 2018. A right humeral prosthesis is in place. Artifact from the prosthesis obscures adjacent detail somewhat. The liver,spleen, pancreas, adrenals,kidneys and bladder do not demonstrate a traumatic injury. 25 mi llimeter splenic cyst. IMPRESSION: . 1. No acute intracranial abnormality is seen. 2. A cervical fracture is not visualized. If the patient continues have symptoms to suggest intracran ial/spinal cord pathology MRI be recommended 3. No traumatic abnormality involving the chest/abdomen/pelvis. 4. 12 millimeter left lower lobe nodule unchanged from 2018. Follow up CT chest in 1 year is recommen ded to reassess stability
--- NOTE | 2019-06-29 16:43 | ER ---
Nurse's Notes [facility] Name: Agnes Calabrese Age: 79 yrs Sex: Female : 1940 Arrival Date: 06/29/2019 Time: 14:24 Bed 18 Private MD: Diagnosis: Low back pain;Pain in right shoulder Presentation: 06/28 14:37 Chief complaint: Patient states: pain in right shoulder and neck. Pt fell last Thursday dm5 morning. Pt was seen by Dr. Dougherty on Thursday and got xrays. Pain has gotten on left side. Coronavirus screen: The patient has NOT traveled to a country currently being monitored by the [facility] within the last 14 days. The patient has NOT had contact with any known and/or suspected case of coronavirus. Proceed with normal triage procedures. Ebola Screen: Patient negative for fever greater than or equal to 101.5 degrees Fahrenheit, and additional compatible Ebola Virus Disease symptoms Patient denies exposure to infectious person. Patient denies travel to an Ebola-affected area in the 21 days before illness onset. No symptoms or risks identified at this time. Initial Sepsis Screen: Does the patient meet any 2 criteria? No. Patient's initial sepsis screen is negative. Does the patient have a suspected source of infection? No. Patient's initial sepsis screen is negative. Risk Assessment: Do you want to hurt yourself or someone else? Patient reports no desire to harm self or others. 14:37 Method Of Arrival: Wheelchair dm5 14:37 Acuity: WARREN 3 dm5 Triage Assessment: 16:57 General: Appears in no apparent distress. Behavior is calm, cooperative, appropriate vc for age. Pain: Complains of pain in lumbar spine and right lateral posterior chest and right clavicle. Musculoskeletal: Circulation, motion, and sensation intact. Range of motion: intact in all extremities. Historical: - Allergies: 17:04 clindamycin HCl (bulk); vc 17:04 Darvocet-N 100; vc 17:04 PENICILLINS; vc 17:04 Sulfa (Sulfonamide Antibiotics); vc - Home Meds: 17:04 duloxetine 60 mg Oral cpDR 2 caps once daily [Active]; Macrodantin 50 mg Oral cap 1 cap vc once daily [Active]; metoprolol succinate 50 mg Oral Tb24 1 tab once daily [Active]; - PMHx: 17:04 Cancer; Depression; Fibromyalgia; insomnia; GERD; lymphedema; skipped heart beats; vc - PSHx: 17:04 Appendectomy; knee replacements; Hysterectomy; Mastectomy, Left; lumbar fusion; vc cervical fusion; - Immunization history:: Adult Immunizations up to date. - Social history:: Smoking status: Patient denies any tobacco usage or history of. Screenin:57 Abuse screen: Denies threats or abuse. Nutritional screening: No deficits noted. vc Tuberculosis screening: No symptoms or risk factors identified. Fall Risk None identified. Vital Signs: 14:40 BP 112 / 72; Pulse 66; Resp 20; Temp 98.7; Pulse Ox 94% on R/A; Weight 93.89 kg (R); dm5 Height 5 ft. 3 in. (160.02 cm); Pain 7/10; 17:12 BP 111 / 56; Pulse 58; Resp 20; Temp 97.7; Pulse Ox 98% ; lt1 14:40 Body Mass Index 36.67 (93.89 kg, 160.02 cm) dm5 ED Course: 14:24 Patient arrived in ED. ag5 14:39 Triage completed. dm5 15:00 Nemo Low, RN is Primary Nurse. vc 15:06 Kevin Ordonez MD is Attending Physician. kdr 16:04 CT Traumagram (Head C Spine CAP wo con) In Process Unspecified. EDMS 16:59 Arm band placed on. vc 17:00 No provider procedures requiring assistance completed. IV discontinued, intact, vc bleeding controlled, No redness/swelling at site. Pressure dressing applied. Administered Medications: 15:58 Drug: [place] 10 mg-325 mg 1 tabs Route: PO; vc 16:30 Follow up: Response: No adverse reaction; Pain is unchanged, physician notified vc 17:27 Drug: morphine 4 mg Route: IM; Site: right deltoid; vc 17:28 Follow up: Response: No adverse reaction; Medication administered at discharge. vc Outcome: 16:42 Discharge ordered by . kdr 17:26 Discharged to home via wheelchair, with family. vc 17:26 Condition: good 17:26 Discharge instructions given to patient, family, Instructed on discharge instructions, follow up and referral plans. medication usage, Demonstrated understanding of instructions, follow-up care, medications, Prescriptions given X 2. 17:30 Patient left the ED. vc Signatures: Dispatcher [employer] Catalina Chase RN RN janet5 Kevin Ordonez MD MD kdr Gaskin, Ajare 5 Marium Magallanes 1 Nemo Low RN RN
--- NOTE | 2019-06-29 16:43 | EDPHYS ---
Physician Documentation [facility] Name: Agnes Calabrese Age: 79 yrs Sex: Female : 1940 Arrival Date: 06/29/2019 Time: 14:24 Bed 18 Private MD: ED Physician Kevin Ordonez HPI: 06/28 15:29 This 79 yrs old Female presents to ER via Wheelchair with complaints of Back kdr Pain, Neck Pain, <24hrs Old. 15:29 This 79 yrs old Female presents to ER via Wheelchair with complaints of Back kdr Pain, Neck Pain, <24hrs Old. 15:31 The patient fell backwards into her shower on Thursday and is now c/o head pain, right kdr shoulder low back and left hip pain.. Onset: The symptoms/episode began/occurred suddenly, Last Thursday. Severity of symptoms: At their worst the symptoms were moderate in the emergency department the symptoms are unchanged. The patient has not experienced similar symptoms in the past. The patient has not recently seen a physician. . Historical: - Allergies: 17:04 clindamycin HCl (bulk); vc 17:04 Darvocet-N 100; vc 17:04 PENICILLINS; vc 17:04 Sulfa (Sulfonamide Antibiotics); vc - Home Meds: 17:04 duloxetine 60 mg Oral cpDR 2 caps once daily [Active]; Macrodantin 50 mg Oral cap 1 cap vc once daily [Active]; metoprolol succinate 50 mg Oral Tb24 1 tab once daily [Active]; - PMHx: 17:04 Cancer; Depression; Fibromyalgia; insomnia; GERD; lymphedema; skipped heart beats; vc - PSHx: 17:04 Appendectomy; knee replacements; Hysterectomy; Mastectomy, Left; lumbar fusion; vc cervical fusion; - Immunization history:: Adult Immunizations up to date. - Social history:: Smoking status: Patient denies any tobacco usage or history of. ROS: 15:31 Constitutional: Negative for fever, chills, and weight loss, Eyes: Negative for injury, kdr pain, redness, and discharge, ENT: Negative for injury, pain, and discharge, Neck: Negative for injury, pain, and swelling, Cardiovascular: Negative for chest pain, palpitations, and edema, Respiratory: Negative for shortness of breath, cough, wheezing, and pleuritic chest pain, Abdomen/GI: Negative for abdominal pain, nausea, vomiting, diarrhea, and constipation, : Negative for injury, bleeding, discharge, and swelling, MS/Extremity: Negative for injury and deformity, Skin: Negative for injury, rash, and discoloration, Psych: Negative for depression, anxiety, suicide ideation, homicidal ideation, and hallucinations, Allergy/Immunology: Negative for hives, rash, and allergies, Endocrine: Negative for neck swelling, polydipsia, polyuria, polyphagia, and marked weight changes, Hematologic/Lymphatic: Negative for swollen nodes, abnormal bleeding, and unusual bruising. 15:31 Back: Positive for pain at rest, pain with movement, Negative for injury or acute deformity. 15:31 MS/extremity: Positive for decreased range of motion, of the right clavicle and right lateral posterior chest. Exam: 15:31 Constitutional: This is a well developed, well nourished patient who is awake, alert, kdr and in no acute distress. Head/Face: Normocephalic, atraumatic. Eyes: Pupils equal round and reactive to light, extra-ocular motions intact. Lids and lashes normal. Conjunctiva and sclera are non-icteric and not injected. Cornea within normal limits. Periorbital areas with no swelling, redness, or edema. Neck: Trachea midline, no thyromegaly or masses palpated, and no cervical lymphadenopathy. Supple, full range of motion without nuchal rigidity, or vertebral point tenderness. No Meningismus. Chest/axilla: Normal chest wall appearance and motion. Nontender with no deformity. No lesions are appreciated. Cardiovascular: Regular rate and rhythm with a normal S1 and S2. No gallops, murmurs, or rubs. Normal PMI, no JVD. No pulse deficits. Respiratory: Lungs have equal breath sounds bilaterally, clear to auscultation and percussion. No rales, rhonchi or wheezes noted. No increased work of breathing, no retractions or nasal flaring. Abdomen/GI: Soft, non-tender, with normal bowel sounds. No distension or tympany. No guarding or rebound. No evidence of tenderness throughout. Skin: Warm, dry with normal turgor. Normal color with no rashes, no lesions, and no evidence of cellulitis. MS/ Extremity: Pulses equal, no cyanosis. Neurovascular intact. Full, normal range of motion. Psych: Awake, alert, with orientation to person, place and time. Behavior, mood, and affect are within normal limits. 15:31 Back: pain, that is mild, ROM is decreased, with rotation to the right, chronic. normal spinal alignment noted, CVA tenderness, that is mild, is noted on the left, vertebral tenderness, is appreciated at L5 and lumbar spine. Vital Signs: 14:40 BP 112 / 72; Pulse 66; Resp 20; Temp 98.7; Pulse Ox 94% on R/A; Weight 93.89 kg (R); dm5 Height 5 ft. 3 in. (160.02 cm); Pain 7/10; 17:12 BP 111 / 56; Pulse 58; Resp 20; Temp 97.7; Pulse Ox 98% ; lt1 14:40 Body Mass Index 36.67 (93.89 kg, 160.02 cm) dm5 MDM: 15:31 Data reviewed: vital signs, nurses notes. Counseling: I had a detailed discussion with kdr the patient and/or guardian regarding: the historical points, exam findings, and any diagnostic results supporting the discharge/admit diagnosis, lab results, radiology results. 16:42 Patient medically screened. kdr 16:46 ED course: The patient was stable in the ED and o/w stable. SENIOR SUPPORT ANALYST score 150. kdr 06/28 15:29 Order name: CT Traumagram (Head C Spine CAP wo con); Complete Time: 16:40 kdr Administered Medications: 15:58 Drug: [place] 10 mg-325 mg 1 tabs Route: PO; vc 16:30 Follow up: Response: No adverse reaction; Pain is unchanged, physician notified vc 17:27 Drug: morphine 4 mg Route: IM; Site: right deltoid; vc 17:28 Follow up: Response: No adverse reaction; Medication administered at discharge. vc Disposition: 06/29/19 16:42 Discharged to Home. Impression: Low back pain, Pain in right shoulder. - Condition is Stable. - Discharge Instructions: Musculoskeletal Pain, Shoulder Pain, Kdxr-[id number], Back Pain, Adult, [id number]. - Prescriptions for Robaxin 500 mg Oral Tablet - take 1 tablet by ORAL route every 6 hours As needed; 20 tablet. Tylenol- Codeine #3 300-30 mg Oral Tablet - take 2 tablets by ORAL route every 4-6 hours As needed; 12 tablet. - Medication Reconciliation Form, Thank You Letter, Prescription Opioid Use form. - Follow up: Private Physician; When: 2 - 3 days; Reason: If symptoms return, Further diagnostic work-up, Recheck today's complaints, Continuance of care, Re-evaluation by your physician. - Problem is new. - Symptoms have improved. Signatures: Dispatcher [employer] EDAL Kevin Ordonez MD MD [facility] Nemo Low RN RN vc Corrections: (The following items were deleted from the chart) 17:30 16:42 06/29/2019 16:42 Discharged to Home. Impression: Low back pain; Pain in right vc shoulder. Condition is Stable. Forms are Medication Reconciliation Form, Thank You Letter, Antibiotic Education, Prescription Opioid Use. Follow up: Private Physician; When: 2 - 3 days; Reason: If symptoms return, Further diagnostic work-up, Recheck today's complaints, Continuance of care, Re-evaluation by your physician. Problem is new. Symptoms have improved. kdr
[2019-06-29] MEDS ORDERED: MORPHINE 4 MG/ML SYR ONE (17:11)
[2019-06-29 17:37] VITALS: BP 111/56; TEMP 97.7; O2SAT 98
== END 2019-06-29 17:30 | disposition home or self-care (01) ==
LOC: ER 14:21
DX: M25.511 Pain in right shoulder (principal); F32.9 Major depressive disorder, single episode, unspecified; Z90.12 Acquired absence of left breast and nipple; Z88.0 Allergy status to penicillin; Z88.2 Allergy status to sulfonamides; Z88.3 Allergy status to other anti-infective agents; Z88.5 Allergy status to narcotic agent
CPT/HCPCS: 70450; 71250; 72125; 96372; 99283

== ENCOUNTER 2020-02-03 14:17 | Observation (INO) | payer OTHER ==
--- OUTSIDE RECORDS SUMMARY | 2020-02-03 14:19 | XMS REPORT | Continuity of Care Document ---
:1940 Author Organization [facility] t Address [address] [place] [address] Care Team Providers Name Role Phone Farhat HOLT Primary Care Physician Hilton HOLT Attending Clinician Payers Payer Name Policy Type Policy Effective Date Expiration Date Sour ce Number AET[employer] MEDICAREAETNA [id number] 2013 [place] MEDICARE HMO/PPO 00:00:00 [facility] [id number] -PresentHMO Problems This patient has no known problems. Allergies, Adverse Reactions, Alerts Allergy Allergy Status Severity Reaction(s) Onset Inactive Treating Comm ents Source Name Type Date Date Clinician Clindamy Propensi Active Unknown 2020-0 [place] ty to Reaction 6-30 [facility] Phosphat adverse 00:00: st e reaction 00 s to drug Propoxyp Propensi Active Unknown 2020-0 [place] ty to Reaction 6-30 [facility] N-Acetam adverse 00:00: st inophen reaction 00 s to drug Penicill Propensi Active Unknown 2020-0 [place] ty to Reaction 6-30 [facility] adverse 00:00: st reaction 00 s to drug Sulfa Propensi Active Unknown 2020-0 [place] (Sulfona ty to Reaction 6-30 [facility] mide adverse 00:00: st Antibiot reaction 00 ics) s to drug Acetamin Propensi Active Unknown 2020-0 [place] op[place] ty to Reaction 6-30 [facility] adverse 00:00: st reaction 00 s to drug Family History Family Member Diagnosis Comments Start Date Stop Date Source Natural father Diabetes [facility] Natural father Heart disease Peter [facility] Natural father Hypertension [place] [facility] Natural mother Asthma [facility] Social History Social Habit Start Date Stop Date Quantity Comments Source History of tobacco Current smoker [place] [facility] Alcohol Binge Sex Assigned At [facility] Cigarettes smoked 2019-10-18 2019-10-18 [place] [facility] current (pack per 00:00:00 00:00:00 day) - Reported Cigarette 2019-10-18 2019-10-18 [facility] pack-years 00:00:00 00:00:00 Tobacco use and 2019-10-18 2019-10-18 Never used [facility] exposure 00:00:00 00:00:00 Alcohol intake 2019-10-18 2019-10-18 Lifetime [facility] 00:00:00 00:00:00 non-drinker (finding) History SDOH 2019-10-18 2019-10-18 1 [place] [facility] Alcohol Frequency 00:00:00 00:00:00 Smoking Status Start Date Stop Date Source Former smoker 2019-10-18 00:00:00 2019-10-18 00:00:00 [facility] Medications This patient has no known medications. Vital Signs Vital Name Observation Time Observation Value Comments Source Body height 2019-10-18 11:34:00 160 cm [place] [facility] Body weight 2019-10-18 11:34:00 95.255 kg [place] [facility] BMI 2019-10-18 11:34:00 37.20 kg/m2 [place] [facility] Procedures Procedure Date / Time Performed Performing Clinician [facility] e CT ABD/PELVIC EXTERNAL 2019-09-15 10:37:00 Renan Canela [facility] STUDY Plan of Care Planned Activity Planned Date Details Comments Source Future Scheduled 2019-11-19 INFLUENZA VACCINE [place] [facility] Test 00:00:00 [code = INFLUENZA VACCINE] Future Scheduled 2006 65+ PNEUMOCOCCAL [place] [facility] Test 00:00:00 VACCINE (1 of 1 - PPSV23) [code = 65+ PNEUMOCOCCAL VACCINE (1 of 1 - PPSV23)] Future Scheduled 1991 SHINGLES VACCINES (#1) [place] [facility] Test 00:00:00 [code = SHINGLES VACCINES (#1)] Encounters Start End Encounter Admission Attending Care Care Encounter Source Date/Time Date/Time Type Type Clinicians Facility Department ID 2019-10-18 2019-10-18 Outpatient [facility] [id number] 365 [place] 00:00:00 00:00:00 RENAN [id number] 2019-10-18 2019-10-18 Outpatient [facility] [id number] [place] 00:00:00 00:00:00 RENAN [address] Results Test Description Test Time Test Comments Results Result [facility] e Comments CT Abd/Pelvic 2019-10-18 This exam was not [place] External Study 12:24:47 acquired at a [facility] facility and has not been interpreted by a [facility] Provider. The exam was imported into our imaging system.
--- OUTSIDE RECORDS SUMMARY | 2020-02-03 14:19 | XMS REPORT | Clinical Summary ---
:1940 Author Organization [facility] [place] Address [address] [place] [address] Care Team Providers Name Role Phone Garrett Dougherty MD Primary Care Provider Allergies Active Allergy Reactions Severity Noted Date Comments Clindamycin Phosphate Unknown Reaction 10/18/2019 Propoxyphene N-Acetaminophen Unknown Reaction 10/18/19 20 Penicillins Unknown Reaction 10/18/2019 Sulfa (Sulfonamide Antibiotics) Unknown Reaction 10/17 Acetaminophen Unknown Reaction 10/18/2019 Medications Not on file Active Problems Not on file Encounters Date Type Specialty Care Team Description 10/18/2019 Hospital Encounter Radiology Renan Canela MD 10/18/2019 Office Visit Neurosurgery Renan Canela MD Compression fracture of T11 vertebra, i nitial encounter (HCC) (Primary Dx) 10/18/2019 Travel 10/07/2019 Travel after 02/02/2019 Medical History Medical History Date Comments Hypertension Cancer (HCC) Headache Family History Medical History Relation Name Comments Diabetes Father Heart disease Father Hypertension Father Asthma Mother Relation Name Status Comments Father Mother Social History Tobacco Use Types Packs/Day Years Used Date Former Smoker 0.5 15 Quit: 1967 Smokeless Tobacco: Never Used Alcohol Use Drinks/Week oz/Week Comments Never Alcohol Habits Answer Date Recorded How often do you have a drink containing alcohol? Never 10/18/2019 How many drinks containing alcohol do you have on a typical Not asked day when you are drinking? How often do you have six or more drinks on one occasion? No t asked Sex Assigned at Date Recorded Not on file Last Filed Vital Signs Vital Sign Reading Time Taken Comments Blood Pressure - - Pulse - - Temperature - - Respiratory Rate - - Oxygen Saturation - - Inhaled Oxygen Concentration - - Weight 95.3 kg (210 lb) 10/18/2019 11:34 AM CDT Height 160 cm (5' 3") 10/18/2019 11:34 AM CDT Body Mass Index 37.2 10/18/2019 11:34 AM CDT Plan of Treatment Health Maintenance Due Date Last Done Comments SHINGLES VACCINES (#1) 1991 65+ PNEUMOCOCCAL VACCINE (1 of 1 - PPSV23) 2006 INFLUENZA VACCINE 11/19/2019 Procedures Procedure Name Priority Date/Time Associated Diagnosis Comme nts CT ABD/PELVIC Routine 09/15/2019 10:37 AM Results for this EXTERNAL STUDY CDT procedure are in the results section. after 02/02/[address] Abd/Pelvic External Study (09/15/2019 10:37 AM CDT) Specimen Narrative Performed At This exam was not acquired at a [facility] facility and has not been [facility] interpreted by a [facility] Provider. T he exam was imported into our imaging system. Performing Organization Address City/State/ZIP Code Phon e Number [facility] [address] [place] [address] after 02/02/2019 Advance Directives For more information, please contact: [phone] Type Date Recorded Patient Lead Front End Developer Explanati on Advance Directives, Living Will and Medical Power of Holistic Specialist
--- NOTE | 2020-02-03 16:03 | RAD REPORT ---
EXAM DESCRIPTION: CT - [id number] - 02/03/2020 3:53 pm CLINICAL HISTORY: Trauma, head and neck injury. Fall COMPARISON: CT HEAD CSPINE MPR WO CONTRAST dated 10/24/2011; SOFT TISSUE NECK W O CONTRAST dated 2010 TECHNIQUE: Axial 5 mm thick images of the head were obtained. Axial 2 mm thick images of the cervical spine were obtained with sagittal and coronal reconstruction images generated and reviewed. All CT scans are performed using dose optimization technique as appropriate and may include automated exposure control or mA/KV adjustment according to patient size. FINDINGS: CT HEAD WITHOUT CONTRAST: No acute hemorrhage, hydrocephalus or extra-axial collection is identified.No areas of brain edema or midline shift. The paranasal sinuses and mastoids are clear.The calvarium is intact. CT CERVICAL SPINE WITHOUT CONTRAST: No fracture or subluxation.Anterior cervical hardware spanning C4 -7 is present with solid bony fusio n.No prevertebral soft tissues swelling is identified. IMPRESSION: No acute intracranial or cervical spine findings.
--- NOTE | 2020-02-03 16:20 | EDPHYS ---
Physician Documentation [facility] Name: Agnes Calabrese Age: 80 yrs Sex: Female : 1940 Arrival Date: 02/03/2020 Time: 14:18 Bed 5 Private MD: Garrett Ortiz V ED Physician Rodriguez Berry HPI: 02/02 16:21 This 80 yrs old Female presents to ER via Wheelchair with complaints of Fall kdr Injury, General Weakness. 16:21 Details of fall: The patient fell from seated position, Was trying to get up from kdr toilet and fell hitting her head on the fixture. She denies LOC and now c/o pain to the right parietal area. Minimal contusion and no hematoma noted. Onset: The symptoms/episode began/occurred acutely, suddenly, just prior to arrival. Associated injuries: The patient sustained injury to the head. Severity of symptoms: At their worst the symptoms were mild, in the emergency department the symptoms are unchanged. The patient has not experienced similar symptoms in the past. The patient has not recently seen a physician. Historical: - Allergies: 14:43 Darvocet-N 100; ss 14:43 PENICILLINS; ss 14:43 Sulfa (Sulfonamide Antibiotics); ss 22:21 clindamycin HCl (bulk); ll2 - PMHx: 14:43 Cancer; GERD; insomnia; Fibromyalgia; Depression; lymphedema; skipped heart beats; ss - PSHx: 14:43 Appendectomy; knee replacements; lumbar fusion; Hysterectomy; Mastectomy, Left; ss cervical fusion; - Immunization history:: Adult Immunizations up to date. - Social history:: Smoking status: Patient denies any tobacco usage or history of. ROS: 16:21 Constitutional: Negative for fever, chills, and weight loss, Eyes: Negative for injury, kdr pain, redness, and discharge, Neck: Negative for injury, pain, and swelling, Cardiovascular: Negative for chest pain, palpitations, and edema, Respiratory: Negative for shortness of breath, cough, wheezing, and pleuritic chest pain, Abdomen/GI: Negative for abdominal pain, nausea, vomiting, diarrhea, and constipation, Back: Negative for injury and pain, : Negative for injury, bleeding, discharge, and swelling, MS/Extremity: Negative for injury and deformity, Skin: Negative for injury, rash, and discoloration, Neuro: Negative for headache, weakness, numbness, tingling, and seizure activity. Psych: Negative for depression, anxiety, suicide ideation, homicidal ideation, and hallucinations, Allergy/Immunology: Negative for hives, rash, and allergies, Endocrine: Negative for neck swelling, polydipsia, polyuria, polyphagia, and marked weight changes, Hematologic/Lymphatic: Negative for swollen nodes, abnormal bleeding, and unusual bruising. Exam: 16:21 Constitutional: This is a well developed, well nourished patient who is awake, alert, kdr and in no acute distress. Head/Face: Normocephalic, atraumatic. Eyes: Pupils equal round and reactive to light, extra-ocular motions intact. Lids and lashes normal. Conjunctiva and sclera are non-icteric and not injected. Cornea within normal limits. Periorbital areas with no swelling, redness, or edema. Neck: Trachea midline, no thyromegaly or masses palpated, and no cervical lymphadenopathy. Supple, full range of motion without nuchal rigidity, or vertebral point tenderness. No Meningismus. Chest/axilla: Normal chest wall appearance and motion. Nontender with no deformity. No lesions are appreciated. Cardiovascular: Regular rate and rhythm with a normal S1 and S2. No gallops, murmurs, or rubs. Normal PMI, no JVD. No pulse deficits. Respiratory: Lungs have equal breath sounds bilaterally, clear to auscultation and percussion. No rales, rhonchi or wheezes noted. No increased work of breathing, no retractions or nasal flaring. Abdomen/GI: Soft, non-tender, with normal bowel sounds. No distension or tympany. No guarding or rebound. No evidence of tenderness throughout. Back: No spinal tenderness. No costovertebral tenderness. Full range of motion. 16:21 Abdomen/GI: Inspection: obese 19:25 ECG was reviewed by the Attending Physician. kdr Vital Signs: 14:41 BP 131 / 76; Pulse 83; Resp 16; Temp 97.9(TE); Pulse Ox 95% on R/A; Weight 94.35 kg; ss Height 5 ft. 3 in. (160.02 cm); 14:45 BP 125 / 82; Pulse 79; Resp 17; bp 15:22 BP 126 / 63; Pulse 74; Resp 17; Pulse Ox 96% on R/A; tw2 15:59 BP 127 / 79; Pulse 79; Resp 17; Pulse Ox 95% ; bp 16:10 BP 131 / 71; Pulse 80; Resp 16; Pulse Ox 88% on R/A; tw2 17:10 BP 138 / 64; Pulse 77; Resp 18; Pulse Ox 97% on 2 lpm NC; tw2 17:58 BP 138 / 64; Pulse 76; Resp 14; Pulse Ox 98% ; bp 19:34 BP 137 / 78; Pulse 81; Resp 18; Pulse Ox 98% ; ll2 21:00 BP 116 / 78; Pulse 84; Resp 18; Pulse Ox 98% on 2 lpm NC; ll2 22:22 BP 120 / 79; Pulse 83; Resp 14; Pulse Ox 98% on 2 lpm NC; ll2 14:41 Body Mass Index 36.85 (94.35 kg, 160.02 cm) ss 16:10 pt placed on 2L NC at this time, 95% will continue to monitor, provider notified. tw2 Alyce Coma Score: 15:00 Eye Response: spontaneous(4). Verbal Response: oriented(5). Motor Response: obeys bp commands(6). Total: 15. Trauma Score (Adult): 15:00 Eye Response: spontaneous(1); Verbal Response: oriented(1); Motor Response: obeys bp commands(2); Systolic BP: > 89 mm Hg(4); Respiratory Rate: 10 to 29 per min(4); Alyce Score: 15; Trauma Score: 12 MDM: 16:20 Patient medically screened. kdr 16:25 Data reviewed: vital signs, nurses notes, old medical records, radiologic studies. kdr Counseling: I had a detailed discussion with the patient and/or guardian regarding: the historical points, exam findings, and any diagnostic results supporting the discharge/admit diagnosis, lab results, radiology results. 16:25 ED course: The patient was noted, while awake and talking, to have a sat of 88% on RA. kdr The patient has been having a non-productive cough for. 19:34 Patient medically screened. mady 19:39 Differential diagnosis: closed head injury, contusion. Data interpreted: Cardiac mady monitor: rate is 81 beats/min, rhythm is regular, Pulse oximetry: on room air is 98 %. Test interpretation: by ED physician or midlevel provider: ECG, plain radiologic studies. ED course: dr ortiz dw the case , admit , full. 02/02 16:29 Order name: Basic Metabolic Panel; Complete Time: 17:53 kdr 02/02 16:29 Order name: CBC with Diff; Complete Time: 17:53 kdr 02/02 16:29 Order name: Magnesium; Complete Time: 17:53 kdr 02/02 16:29 Order name: NT PRO-BNP; Complete Time: 17:53 kdr 02/02 16:29 Order name: PT-INR; Complete Time: 17:53 kdr 02/02 16:29 Order name: Troponin (emerg Dept Use Only); Complete Time: 17:53 kdr 02/02 17:05 Order name: Manual Differential; Complete Time: 17:53 EDMS 02/02 18:09 Order name: DD; Complete Time: 19:35 kdr 02/02 18:19 Order name: Basic Metabolic Panel EDWY 02/02 18:19 Order name: Basic Metabolic Panel EDWY 02/02 18:19 Order name: CBC with Automated Diff EDWY 02/02 18:19 Order name: CBC with Automated Diff EDWY 02/02 18:19 Order name: Troponin I EDWY 02/02 15:09 Order name: CT Head C Spine; Complete Time: 16:19 em1 02/02 16:29 Order name: CXR XRAY; Complete Time: 17:53 kdr 02/02 18:19 Order name: Troponin I EDWY 02/02 18:19 Order name: Troponin I EDWY 02/02 18:20 Order name: CT Chest For PE Angio; Complete Time: 19:50 kdr 02/02 18:49 Order name: US Extremity Venous W Compression Isaiah; Complete Time: 21:37 kdr 02/02 19:39 Order name: Blood Culture Adult (2) mady 02/02 19:39 Order name: Lactate mady 02/02 20:20 Order name: SARS-COV-2 RT PCR; Complete Time: 21:37 EDMS 02/02 16:29 Order name: EKG; Complete Time: 16:30 kdr 02/02 16:29 Order name: Cardiac monitoring; Complete Time: 16:56 kdr 02/02 16:29 Order name: EKG - Nurse/Tech; Complete Time: 16:56 kdr 02/02 16:29 Order name: IV Saline Lock; Complete Time: 16:57 kdr 02/02 16:29 Order name: Labs collected and sent; Complete Time: 16:56 kdr 02/02 16:29 Order name: O2 Per Protocol; Complete Time: 16:33 kdr 02/02 16:29 Order name: O2 Sat Monitoring; Complete Time: 16:33 kdr 02/02 18:19 Order name: Regular EDMS 02/02 18:19 Order name: EKG Electrocardiogram EDMS 02/02 18:19 Order name: EKG Electrocardiogram EDMS 02/02 18:19 Order name: EKG Electrocardiogram EDMS 02/02 18:19 Order name: EKG Electrocardiogram EDMS EC:25 Rate is 72 beats/min. Rhythm is regular, Sinus arrythmia with No ectopy. QRS [place] is kdr Normal. [place] interval is normal. QRS interval is normal. QT interval is normal. Clinical impression: NSR w/ Non-specific ST/T Changes. Administered Medications: 19:43 Not Given (Duplicate Order): Albuterol HFA Inhaler 4 puffs Inhalation once mady 20:03 Drug: Decadron - Dexamethasone 6 mg Route: IVP; Site: right hand; ll2 21:23 Follow up: Response: No adverse reaction ll2 20:04 Drug: Mucomyst - Acetylcysteine 600 mg Route: PO; ll2 21:22 Follow up: Response: No adverse reaction ll2 20:04 Drug: Pepcid 20 mg Route: IVP; Site: right hand; ll2 20:53 Follow up: Response: No adverse reaction ll2 21:22 Follow up: Response: No adverse reaction ll2 21:22 Drug: Zithromax 500 mg Route: IVPB; Infused Over: 1 hrs; Site: right hand; ll2 21:22 Drug: Rocephin 1 grams Route: IV; Rate: per protocol; Site: right hand; ll2 21:23 Follow up: Response: No adverse reaction; IV Status: Completed infusion ll2 21:22 Drug: Lovenox 40 mg Route: Sub-Q; Site: left lower abdomen; ll2 21:23 Follow up: Response: No adverse reaction ll2 21:30 Drug: Xopenex 2.5 mg Route: Inhalation; ll2 21:30 Drug: AtroVENT Aerosol 0.5 mg Route: Inhalation; ll2 Disposition: 02/03/20 18:05 Hospitalization ordered by Garrett Ortiz for Observation. Preliminary diagnosis are Superficial injury of head, Concussion, Weakness, Dyspnea, Hypoxemia, Solitary pulmonary nodule. - Bed requested for Telemetry/MedSurg (observation). - Status is Observation. ll2 - Condition is Fair. - Problem is new. - Symptoms have improved. Signatures: Dispatcher [employer] EDWY Rodriguez Berry MD MD cha Rittger, Kevin, MD MD kdr Smirch, Shelby, RN RN Renetta Lieberman RN RN Angelina Eddy RN RN ll2 Corrections: (The following items were deleted from the chart) 15:13 14:55 Head Brain Wo Cont+CT.RAD.BRZ ordered. EDWY EDWY 15:13 15:08 Head C Spine MPR Wo Con+CT.RAD.BRZ ordered. [facility] EDMS 16:25 16:20 02/03/2020 16:20 Discharged to Home. Impression: Other slipping, tripping and kdr stumbling and falls; Superficial injury of head. Condition is Stable. Forms are Medication Reconciliation Form, Thank You Letter, Antibiotic Education, Prescription Opioid Use. Follow up: Garrett Ortiz; When: 2 - 3 days; Reason: If symptoms return, Further diagnostic work-up, Recheck today's complaints, Continuance of care, Re-evaluation by your physician. Problem is new. Symptoms have improved. kdr 19:45 18:05 Hospitalization Ordered by Garrett Ortiz MD for Observation. Preliminary diagnosis mady is Superficial injury of head; Concussion. Bed requested for Telemetry/MedSurg (observation). Status is Observation. Condition is Fair. Problem is new. Symptoms have improved. kdr 20:10 19:45 02/03/2020 18:05 Hospitalization Ordered by Garrett Ortiz MD for Observation. mady Preliminary diagnosis is Superficial injury of head; Concussion; Weakness; Dyspnea; Hypoxemia. Bed requested for Telemetry/MedSurg (observation). Status is Observation. Condition is Fair. Problem is new. Symptoms have improved. [facility] 20:20 16:25 CORONAVIRUS+MR.LAB.BRZ ordered. [facility] EDMS 21:39 20:10 02/03/2020 18:05 Hospitalization Ordered by Garrett Ortiz MD for Observation. cg Preliminary diagnosis is Superficial injury of head; Concussion; Weakness; Dyspnea; Hypoxemia; Solitary pulmonary nodule. Bed requested for Telemetry/MedSurg (observation). Status is Observation. Condition is Fair. Problem is new. Symptoms have improved. mady 22:21 14:43 Allergies: clindamycin HCl (bulk); ss ll2 22:27 21:39 02/03/2020 18:05 Hospitalization Ordered by Garrett Ortiz MD for Observation. ll2 Preliminary diagnosis is Superficial injury of head; Concussion; Weakness; Dyspnea; Hypoxemia; Solitary pulmonary nodule. Bed requested for Telemetry/MedSurg (observation). Status is Observation. Condition is Fair. Problem is new. Symptoms have improved. cg
--- NOTE | 2020-02-03 16:20 | ER ---
Nurse's Notes [facility] Name: Agnes Calabrese Age: 80 yrs Sex: Female : 1940 Arrival Date: 02/03/2020 Time: 14:18 Bed 5 Private MD: Garrett Dougherty V Diagnosis: Superficial injury of head;Concussion;Weakness;Dyspnea;Hypoxemia;Solitary pulmonary nodule Presentation: 02/02 14:41 Chief complaint: Patient states: "She fell and hit her head on the floor a couple hours ss ago. She has been a little disoriented since then. She has been falling more frequently. She is on antibiotics and cough medication and is scheduled to have a COVID swab on Thursday.". Coronavirus screen: Client denies travel out of the [place] in the last 14 days. Ebola Screen: Patient denies exposure to infectious person. Patient denies travel to an Ebola-affected area in the 21 days before illness onset. Initial Sepsis Screen: Does the patient meet any 2 criteria? No. Patient's initial sepsis screen is negative. Does the patient have a suspected source of infection? No. Patient's initial sepsis screen is negative. Risk Assessment: Do you want to hurt yourself or someone else? Patient reports no desire to harm self or others. Onset of symptoms was February 03, 2020. 14:41 Method Of Arrival: Wheelchair ss 14:41 Acuity: WARREN 2 ss Triage Assessment: 14:45 General: Appears in no apparent distress. comfortable, obese, Behavior is cooperative, bp appropriate for age, anxious. General: SEE TRAUMA TAB. Pain: Complains of pain in head. Historical: - Allergies: 14:43 Darvocet-N 100; ss 14:43 PENICILLINS; ss 14:43 Sulfa (Sulfonamide Antibiotics); ss 22:21 clindamycin HCl (bulk); ll2 - PMHx: 14:43 Cancer; GERD; insomnia; Fibromyalgia; Depression; lymphedema; skipped heart beats; ss - PSHx: 14:43 Appendectomy; knee replacements; lumbar fusion; Hysterectomy; Mastectomy, Left; ss cervical fusion; - Immunization history:: Adult Immunizations up to date. - Social history:: Smoking status: Patient denies any tobacco usage or history of. Screenin:22 Abuse screen: Denies threats or abuse. Nutritional screening: No deficits noted. tw2 Tuberculosis screening: No symptoms or risk factors identified. Fall Risk Secondary diagnosis (15 points) impaired mobility. Primary Survey: 14:45 NO uncontrolled hemorrhage observed. A: The patient is alert. Airway: patent. bp Breathing/Chest: Respiratory pattern: regular, Respiratory effort: spontaneous, unlabored. Circulation: Cardiac rhythm: sinus rhythm. Disability Alert. Exposure/Environment: There is no evidence of uncontrolled external bleeding. No obvious injuries are noted at this time. 15:57 Reassessment Airway Airway Patent Breathing/Chest Respiratory pattern Regular bp Respiratory effort Spontaneous Unlabored Circulation Heart rhythm Sinus rhythm Disability Alert. Assessment: 14:45 General: SEE TRAUMA TAB. bp 15:56 Reassessment: PT RETURNED FROM CT. bp 16:22 Reassessment: Patient appears in no apparent distress at this time. No changes from tw2 previously documented assessment. Patient and/or family updated on plan of care and expected duration. Pain level reassessed. 17:59 Reassessment: Patient appears in no apparent distress at this time. Patient and/or bp family updated on plan of care and expected duration. Pain level reassessed. ALL CURRENT ORDERS COMPLETED, DISPO PENDING. 18:32 Reassessment: Patient appears in no apparent distress at this time. ADMIT INITIATED. PT bp TO CT WITH CAFE HELPER. 20:05 Reassessment: Patient and/or family updated on plan of care and expected duration. Pain ll2 level reassessed. Patient is alert, oriented x 3, equal unlabored respirations, skin warm/dry/pink. lab at bedside drawing cultures, neither IV would draw blood. 21:50 Reassessment: Patient and/or family updated on plan of care and expected duration. Pain ll2 level reassessed. Patient is alert, oriented x 3, equal unlabored respirations, skin warm/dry/pink. attempted to call report, was told the nurse needed to call me back. 22:00 Reassessment: report given to DANIEL Fox. ll2 Vital Signs: 14:41 BP 131 / 76; Pulse 83; Resp 16; Temp 97.9(TE); Pulse Ox 95% on R/A; Weight 94.35 kg; ss Height 5 ft. 3 in. (160.02 cm); 14:45 BP 125 / 82; Pulse 79; Resp 17; bp 15:22 BP 126 / 63; Pulse 74; Resp 17; Pulse Ox 96% on R/A; tw2 15:59 BP 127 / 79; Pulse 79; Resp 17; Pulse Ox 95% ; bp 16:10 BP 131 / 71; Pulse 80; Resp 16; Pulse Ox 88% on R/A; tw2 17:10 BP 138 / 64; Pulse 77; Resp 18; Pulse Ox 97% on 2 lpm NC; tw2 17:58 BP 138 / 64; Pulse 76; Resp 14; Pulse Ox 98% ; bp 19:34 BP 137 / 78; Pulse 81; Resp 18; Pulse Ox 98% ; ll2 21:00 BP 116 / 78; Pulse 84; Resp 18; Pulse Ox 98% on 2 lpm NC; ll2 22:22 BP 120 / 79; Pulse 83; Resp 14; Pulse Ox 98% on 2 lpm NC; ll2 14:41 Body Mass Index 36.85 (94.35 kg, 160.02 cm) ss 16:10 pt placed on 2L NC at this time, 95% will continue to monitor, provider notified. tw2 [place] Coma Score: 15:00 Eye Response: spontaneous(4). Verbal Response: oriented(5). Motor Response: obeys bp commands(6). Total: 15. Trauma Score (Adult): 15:00 Eye Response: spontaneous(1); Verbal Response: oriented(1); Motor Response: obeys bp commands(2); Systolic BP: > 89 mm Hg(4); Respiratory Rate: 10 to 29 per min(4); [place] Score: 15; Trauma Score: 12 ED Course: 14:18 Patient arrived in ED. ag5 14:19 Garrett Dougherty MD is Private Physician. ag5 14:43 Triage completed. ss 14:43 Arm band placed on right wrist. ss 14:45 Patient has correct armband on for positive identification. Bed in low position. Call bp light in reach. Side rails up X2. 14:55 Heron Lopez, DANIEL is Primary Nurse. bp 14:59 Kevin Ordonez MD is Attending Physician. kdr 15:23 Patient maintains SpO2 saturation greater than 95% on room air. Thermoregulation: warm tw2 blanket given to patient. 15:53 CT Head C Spine In Process Unspecified. EDMS 16:19 Garrett Dougherty MD is Referral Physician. kdr 16:56 Inserted saline lock: 22 gauge in right hand, using aseptic technique. Blood collected. tw2 Missed attempt(s): 22 gauge in right hand. Bleeding controlled, band aid applied, catheter tip intact. 16:59 CXR XRAY In Process Unspecified. EDMS 18:04 Garrett Dougherty MD is Hospitalizing Provider. kdr 18:47 Radiology exam delayed due to IV insertion attempt and/or patient not having vm2 appropriate IV at this time. 18:59 CT Chest For PE Angio In Process Unspecified. EDMS 19:00 Report given to DANIEL Ledbetter and DANIEL Maurer. tw2 19:34 Attending Physician role handed off by Kevin Ordonez MD mady 19:34 Rodriguez Berry MD is Attending Physician. mady 19:40 US Extremity Venous W Compression Isaiah Sent. mg2 21:04 US Extremity Venous W Compression Isaiah In Process Unspecified. EDMS 22:20 No provider procedures requiring assistance completed. Patient admitted, IV remains in ll2 place. Administered Medications: 19:43 Not Given (Duplicate Order): Albuterol HFA Inhaler 4 puffs Inhalation once mady 20:03 Drug: Decadron - Dexamethasone 6 mg Route: IVP; Site: right hand; ll2 21:23 Follow up: Response: No adverse reaction ll2 20:04 Drug: Mucomyst - Acetylcysteine 600 mg Route: PO; ll2 21:22 Follow up: Response: No adverse reaction ll2 20:04 Drug: Pepcid 20 mg Route: IVP; Site: right hand; ll2 20:53 Follow up: Response: No adverse reaction ll2 21:22 Follow up: Response: No adverse reaction ll2 21:22 Drug: Zithromax 500 mg Route: IVPB; Infused Over: 1 hrs; Site: right hand; ll2 21:22 Drug: Rocephin 1 grams Route: IV; Rate: per protocol; Site: right hand; ll2 21:23 Follow up: Response: No adverse reaction; IV Status: Completed infusion ll2 21:22 Drug: Lovenox 40 mg Route: Sub-Q; Site: left lower abdomen; ll2 21:23 Follow up: Response: No adverse reaction ll2 21:30 Drug: Xopenex 2.5 mg Route: Inhalation; ll2 21:30 Drug: AtroVENT Aerosol 0.5 mg Route: Inhalation; ll2 Intake: 15:00 PO: 0ml; Total: 0ml. bp Output: 15:00 Urine: 0ml; Total: 0ml. bp Outcome: 16:20 Discharge ordered by MD. kdr 18:05 Decision to Hospitalize by Provider. kdr 22:27 Patient left the ED. ll2 Signatures: Dispatcher [employer] EDSC Rodriguez Berry MD MD cha Rittger, Kevin, MD MD [facility] Korina Trevino RN RN Nohemi Beard RN RN 2 Connie Tinoco [facility] Heron Lopez RN RN Fede Short RN RN [facility] Dav Vasquez [facility] Angelina Tavares RN RN ll2 Corrections: (The following items were deleted from the chart) 20:20 16:34 CORONAVIRUS+ drawn and sent. tw2 EDSC 22:21 14:43 Allergies: clindamycin HCl (bulk); [facility]
[2020-02-03 17:03] LABS: Absolute Lymphocytes (CBC) 1.3 K/uL (0.7-4.9); Basophils % 0.3 % (0-1.3); Hematocrit 48.9 % (36.0-45.0); Lymphocytes % 9.3 % (15.3-44.8); MPV 9.4 fL (7.6-11.3); RBC Red Blood Cell Count 4.91 M/uL (3.86-4.86)
[2020-02-03 17:06] LABS: Protime INR 1.02
--- NOTE | 2020-02-03 17:14 | RAD REPORT ---
EXAM DESCRIPTION: RAD - Chest Single View - 02/03/2020 4:58 pm CLINICAL HISTORY: COUGH Chest pain. COMPARISON: Chest Single View dated 12/15/2018; Chest Single View dated 01/12/2018; Chest Pa And Lat ( 2 Views) dated 01/11/2018; Chest Pa And Lat (2 Views) dated 02/27/2016 FINDINGS: Portable technique limits examination quality. The lungs are grossly clear. The heart is upper limit normal in size. No displaced fractures.Right hu meral prosthesis. Small cervical hardware plate. IMPRESSION: No acute intrathoracic process suspected.
[2020-02-03 17:22] LABS: BUN Blood Urea Nitrogen 16 mg/dL (7-18); Bicarbonate 30 mmol/L (21-32); Glucose Level 106 mg/dL (74-106); Magnesium 2.1 mg/dL (1.8-2.4); NT PRO-BNP 784 pg/mL (<450); Potassium 3.8 mmol/L (3.5-5.1); Sodium Level 138 mmol/L (136-145); Troponin (Emerg Dept Use Only) < 0.02 ng/mL (0.0-0.045)
[2020-02-03 17:49] LABS: Blood Morphology Comment NOT SEEN (NOT SEEN); Platelet Estimate ADEQ
[2020-02-03] MEDS ORDERED: ONDANSETRON 4 MG/2 ML VIAL IV PRN (18:14)
--- NOTE | 2020-02-03 19:41 | RAD REPORT ---
EXAM DESCRIPTION: CT - Chest For Pe Angio - 02/03/2020 6:58 pm CLINICAL HISTORY: Chest pain. Dyspnea;SOB COMPARISON: Chest Abd Pelvis Wo Con dated 07/29/2017 TECHNIQUE: CT angiogram of the pulmonary arteries was performed with MIP. All CT scans are performed using dose optimization technique as appropriate and may include automated exposure control or mA/KV adjustment according to patient size. FINDINGS: No evidence of pulmonary thromboembolism. No acute aortic finding demonstrated. Rounded pulmonary nodule is again seen in the medial left lung base. There has been slight interval g rowth in the size of the nodule since 07/29/2017. Currently, the nodule measures approximately 12 x 1 2 mm, previously 10 x 10 mm. No pulmonary infiltrate is seen. No significant pericardial or pleural fluid. Small hiatal hernia is seen with mildly patulous esophag us. No concerning bony finding. IMPRESSION: No evidence of pulmonary thromboembolism. No acute lumbar abnormality suspected. Fractional growth in the medial left lower lobe pulmonary nodu le since comparative study. Consider follow-up CT chest in 6 -12 months for surveillance purposes.
[2020-02-03] MEDS ORDERED: dexAMETHasone 10 MG/ML VIAL ONE (20:01)
[2020-02-03] MEDS ORDERED: AZITHROMYCIN 500 MG INJ IVPB ONE (20:01)
[2020-02-03] MEDS ORDERED: NA CHLORIDE 0.9% 250 ML ONE (20:01)
[2020-02-03] MEDS ORDERED: CEFTRIAXONE/SWI 1gm 1 GM/10 ML SYR ONE (20:01)
[2020-02-03] MEDS ORDERED: FAMOTIDINE 20 MG/2 ML VIAL IV ONE (20:01)
[2020-02-03] MEDS ORDERED: ACETYLCYST 6,000 MG/30 ML VIAL ONE (20:02)
[2020-02-03] MEDS ORDERED: ALBUTEROL INHALER 60 PUFF/8 GM IH ONE (20:02)
[2020-02-03] MEDS ORDERED: ENOXAPARIN 60 MG/0.6 ML SQ ONE (20:27)
--- NOTE | 2020-02-03 21:14 | RAD REPORT ---
EXAM DESCRIPTION: US - Extrem Venous W Compress Isaiah - 02/03/2020 9:04 pm CLINICAL HISTORY: SOB;Pain Bilateral leg edema and swelling. COMPARISON: Extremity Venous Uni Ltd dated 06/20/2017 TECHNIQUE: Real-time sonographic interrogation of the left and right lower extremity deep venous sys tems was performed. FINDINGS: Normal compressibility, flow augmentation, phasic flow and spontaneous flow is identified in both the left and right lower extremity deep venous systems. IMPRESSION: No sonographic evidence of left or right lower extremity deep venous thrombosis.
[2020-02-03] MEDS ORDERED: IPRATROPIUM BROM 0.5MG/2.5ML ONE (21:38)
[2020-02-03] MEDS ORDERED: LEVALBUTEROL 1.25 MG/3 ML NEB ONE (21:39)
[2020-02-03 22:44] VITALS: BMI 37.7
[2020-02-03] MEDS: ACETAMINOPHEN 500 MG TAB PO PRN (23:19)
[2020-02-04] MEDS ORDERED: ZOLPIDEM TARTRATE 10 MG TABLET PO ONE ×2 (00:15→21:07)
[2020-02-04] MEDS ORDERED: QUETIAPINE 100MG TAB PO ONE ×2 (00:16→21:08)
[2020-02-04] MEDS ORDERED: TRAMADOL HCL 50 MG TAB PO ONE ×2 (00:17→21:09)
[2020-02-04] MEDS ORDERED: METOPROLOL XL 25 MG TAB PO ONE ×2 (00:18→21:09)
[2020-02-04] MEDS ORDERED: INFLUENZA VACCINE (for 3y+) 0.5 ML DOSE IMVAC ONE (06:00)
[2020-02-04 07:16] LABS: Basophils % 0.1 % (0-1.3); Hematocrit 43.5 % (36.0-45.0); Lymphocytes % 7.4 % (15.3-44.8); MPV 10.2 fL (7.6-11.3); RBC Red Blood Cell Count 4.42 M/uL (3.86-4.86)
[2020-02-04 07:24] LABS: Potassium 3.8 mmol/L (3.5-5.1)
[2020-02-04 07:52] LABS: Blood Morphology Comment NOT SEEN (NOT SEEN); Platelet Estimate ADEQ; White Blood Cell Scan OK (OK)
--- NOTE | 2020-02-04 13:42 | P.HP ---
Certification for Inpatient Patient admitted to: Observation With expected LOS: <2 Midnights Practitioner: I am a practitioner with admitting privileges, knowledge of patient current condition, hospital course, and medical plan of care. Services: Services provided to patient in accordance with Admission requirements found in Title 42 Section 412.3 of the Code of Federal Regulations Patient History Date of Service: 02/04/20 Reason for admission: CONGESTION AND WEAKNESS History of Present Illness: SHE COMES TO ER FOR CONGESTION, WEAKNESS AND SHE IS OLD, CHRONICALLY ILL WITH WBC OF 14K, ER DOCTORS DECIDED TO ADMIT HER. CT CHEST IS NEG FOR PE OR PNEUMONIA. SHE IS WEAK THIS AM WHEN I SEE HER AND SEEMS TO HAVE SINUS CONGESTION. Allergies clindamycin HCl [From Cleocin] Allergy (Severe, Verified 02/03/20 22:44) Hives/Rash clindamycin palmitate HCl [From Cleocin] Allergy (Severe, Verified 02/03/20 22:44) Hives/Rash clindamycin phosphate [From Cleocin] Allergy (Severe, Verified 02/03/20 22:44) Hives/Rash Penicillins Allergy (Severe, Verified 02/03/20 22:44) Hives/Rash Sulfa (Sulfonamide Antibiotics) [Sulfa(Sulfonamide Antibiotics)] Allergy (Severe, Verified 02/03/20 22:44) Hives/Rash acetaminophen [From Darvocet-N 100] Allergy (Verified 05/25/19 12:34) Unknown propoxyphene [From Darvocet-N 100] Allergy (Verified 05/25/19 12:34) Unknown strawberries Allergy (Severe, Uncoded 05/25/19 12:34) Hives/Rash Home Medications: Indapamide [Lozol*] 2.5 mg PO DAILY 08/05/11 Simvastatin 40 mg PO BEDTIME 08/05/11 Duloxetine [Cymbalta *] 60 mg PO BID 01/11/18 Memantine HCl 10 mg PO BID 01/11/18 Potassium Oral Tab [Klor-Con 10 mEq Tab*] 20 meq PO BID 01/11/18 Quetiapine [Seroquel*] 300 mg PO BEDTIME 01/11/18 Tramadol HCl [Ultram] 50 mg PO BEDTIME 01/11/18 Metoprolol Succinate [Toprol Xl*] 25 mg PO BEDTIME 12/16/18 Nitrofurantoin Monohyd/M-Cryst [Macrobid 100 mg Capsule] 50 mg PO DAILY 12/16/18 Topiramate [Topamax*] 200 mg PO BEDTIME 12/16/18 Donepezil HCl 5 mg PO DAILY 05/25/19 Gabapentin 300 mg PO DAILY 05/25/19 Cyclosporine [Restasis] 1 gtt EACH EYE BID 02/04/20 Gabapentin 1 tab PO BEDTIME 02/04/20 Pantoprazole Sodium [Protonix] 1 tab PO DAILY 02/04/20 Thyroid,Pork [Remote Inpatient Coder Thyroid] 1 tab PO DAILY 02/04/20 Topiramate [Topamax] 1 tab PO DAILY 02/04/20 Zolpidem Tartrate [Ambien] 1 tab PO BEDTIME 02/04/20 - Past Medical/Surgical History Has patient received pneumonia vaccine in the past: Yes Diabetic: No -: Lymphedema -: heart arrhythmia w/ PVCs -: L breast cancer -: PE -: Meniere's Disease -: Former smoker ([id number]) -: Reccurent UTIs -: Fibromyalgia -: GERD -: insomnia -: Depression -: s/p Left Mastectomy -: PATIENCE TKA -: Cervical fusion -: Lumbar fusion -: Appey -: Hysterectomy - Family History Father -: Diabetes Notes: heart attack. alcoholic - Social History Smoking Status: Former smoker Alcohol use: No CD- Drugs: No Caffeine use: No Place of Residence: Home Review of Systems 10-point ROS is otherwise unremarkable General: Weakness, Malaise Physical Examination - Vital Signs Temperature: 96.9 F Blood Pressure: 117/67 Pulse: 60 Respirations: 18 Pulse Ox (%): 96 - Physical Exam General: Mild distress, Obese HEENT: Atraumatic, PERRLA, Mucous membr. moist/pink, EOMI, Sclerae nonicteric Neck: Supple, 2+ carotid pulse no bruit, No LAD, Without JVD or thyroid abnormality Respiratory: Clear to auscultation bilaterally, Normal air movement Cardiovascular: Regular rate/rhythm, Normal S1 S2 Gastrointestinal: Normal bowel sounds, No tenderness Musculoskeletal: No tenderness Integumentary: No rashes Neurological: Normal gait, Normal speech, Normal strength at 5/5 x4 extr, Normal tone, Normal affect Lymphatics: No axilla or inguinal lymphadenopathy - Studies Laboratory Data (last 24 hrs) 02/03/20 21:00: Troponin I Cancelled 02/03/20 16:54: PT 12.0, INR 1.02 02/03/20 16:54: WBC 14.1 H, Hgb 16.4 H, Hct 48.9 H, Plt Count 240 02/03/20 16:54: Sodium 138, Potassium 3.8, BUN 16, Creatinine 1.35 H, Glucose 106, Magnesium 2.1 Assessment and Plan - Problems (Diagnosis) (1) Respiratory infection Current Visit: Yes Status: Acute Plan: ACUTE SINUSITIS. SHE IS IMMUNOSUPPRESSED ELDERLY, DIABETIC WHO TENDS TO HAVE RECURRENT UTI, AND RECURRENT COMPLAINTS OF MANY ISSUES GOING TO MANY DOCTORS. IV ROCEPHINE BC 2 PENDING. (2) General weakness Current Visit: Yes Status: Acute (3) Morbid obesity Current Visit: Yes Status: Chronic (4) Alzheimer disease Current Visit: Yes Status: Chronic Qualifiers: Alzheimer's disease onset: late-onset (5) Neuralgic pain Current Visit: Yes Status: Chronic Plan: SHE IS ON BOTH TOPAMAX AND LYRICA PER HER NEUROLOGIST. I ENQUIRED AND HE WANTS TO CONTINUE BOTH. (6) Dehydration Current Visit: Yes Status: Acute Plan: IMPROVED ON LAB. - Advance Directives Does patient have a Living Will: No Does patient have a Durable POA for Healthcare: Yes
[2020-02-04] MEDS: ACETAMINOPHEN 500 MG TAB PO PRN (13:51)
[2020-02-04 15:15] LABS: MPV 9.7 fL (7.6-11.3)
[2020-02-04 15:54] LABS: Platelet Estimate ADEQ
[2020-02-04] MEDS: CEFTRIAXONE/SWI 1gm 1 GM/10 ML SYR IV SCH (20:54)
[2020-02-04] MEDS ORDERED: Topiramate 100 MG TABLET PO SCH (21:00)
[2020-02-04] MEDS ORDERED: HOME MED 1 EA UNK (Cyclosporine [Restasis] 1 GTT) EACH EYE SCH (21:00)
[2020-02-04] MEDS ORDERED: POTASSIUM 20 MEQ PO SCH (21:00)
[2020-02-04] MEDS ORDERED: QUETIAPINE 300 MG PO SCH (21:00)
[2020-02-04] MEDS ORDERED: CEFTRIAXONE 1 GM/NS 50 ML 1 GM/50 ML BAG IV SCH (21:00)
[2020-02-05] MEDS: CEFTRIAXONE/SWI 1gm 1 GM/10 ML SYR IV SCH (08:51)
[2020-02-05] MEDS ORDERED: Topiramate 100 MG TABLET PO SCH (09:00)
[2020-02-05] MEDS ORDERED: Gabapentin 300 MG CAP PO SCH (09:00)
[2020-02-05] MEDS ORDERED: INDAPAMIDE 2.5 MG PO SCH (09:00)
[2020-02-05] MEDS ORDERED: DONEPEZIL HCL 5 MG PO SCH (09:00)
[2020-02-05] MEDS ORDERED: ENOXAPARIN 40 MG/0.4 ML SQ SCH (09:00)
[2020-02-05 12:18] VITALS: O2SAT 96
--- NOTE | 2020-02-05 12:39 | P.DS ---
Admission Date: 02/03/20 Discharge Date: 02/05/20 Disposition: ROUTINE DISCHARGE Discharge Condition: FAIR Reason for Admission: CONGESTION AND WEAKNESS - Problems (1) Respiratory infection Current Visit: Yes Status: Acute (2) General weakness Current Visit: Yes Status: Acute (3) Morbid obesity Current Visit: Yes Status: Chronic (4) Alzheimer disease Current Visit: Yes Status: Chronic Qualifiers: Alzheimer's disease onset: late-onset (5) Neuralgic pain Current Visit: Yes Status: Chronic (6) Dehydration Current Visit: Yes Status: Acute Brief History of Present Illness: SHE COMES TO ER FOR CONGESTION, WEAKNESS AND SHE IS OLD, CHRONICALLY ILL WITH WBC OF 14K, ER DOCTORS DECIDED TO ADMIT HER. CT CHEST IS NEG FOR PE OR PNEUMONIA. SHE IS WEAK THIS AM WHEN I SEE HER AND SEEMS TO HAVE SINUS CONGESTION. Hospital Course: DELILAH CAME WITH CONGESTION AND WEAKNESS. ER DOCTORS DECIDED TO ADMIT HER. SHE HAS NO PNEUMONIA, PE AND HAS DEHYDRATION. SHE HAS IMPROVED ON ABX. I WILL DISCHARGE HER ON LEVAQUIN. SHE IS CONGESTED MAINLY IN SINUSES AND HAS PND. SHE HAS MANY MEDICAL ISSUES AND IS QUITE DECONDITIONED FROM OBESITY AND CHRONIC ISSUES. Vital Signs/Physical Exam: Temp Pulse Resp BP Pulse Ox 97.5 F 54 18 117/58 L 96 02/05/20 08:00 02/05/20 08:00 02/05/20 08:00 02/05/20 08:00 02/05/20 08:00 Laboratory Data at Discharge: WBC 12.9 K/uL (4.3-10.9) H 02/04/20 06:51 Hgb 14.4 g/dL (12.0-15.0) 02/04/20 06:51 Hct 43.5 % (36.0-45.0) 02/04/20 06:51 Plt Count 193 K/uL (152-406) 02/04/20 15:07 PT 12.0 SECONDS (9.5-12.5) 02/03/20 16:54 INR 1.02 02/03/20 16:54 Sodium 138 mmol/L (136-145) 02/04/20 06:51 Potassium 3.8 mmol/L (3.5-5.1) 02/04/20 06:51 BUN 16 mg/dL (7-18) 02/04/20 06:51 Creatinine 1.18 mg/dL (0.55-1.3) 02/04/20 06:51 Glucose 188 mg/dL (74-106) H 02/04/20 06:51 Magnesium 2.1 mg/dL (1.8-2.4) 02/03/20 16:54 Troponin I < 0.02 ng/mL (0.0-0.045) 02/04/20 06:58 Home Medications: Indapamide [Lozol*] 2.5 mg PO DAILY 08/05/11 Simvastatin 40 mg PO BEDTIME 08/05/11 Duloxetine [Cymbalta *] 60 mg PO BID 01/11/18 Memantine HCl 10 mg PO BID 01/11/18 Potassium Oral Tab [Klor-Con 10 mEq Tab*] 20 meq PO BID 01/11/18 Quetiapine [Seroquel*] 300 mg PO BEDTIME 01/11/18 Tramadol HCl [Ultram] 50 mg PO BEDTIME 01/11/18 Metoprolol Succinate [Toprol Xl*] 25 mg PO BEDTIME 12/16/18 Topiramate [Topamax*] 200 mg PO BEDTIME 12/16/18 Donepezil HCl 5 mg PO DAILY 05/25/19 Gabapentin 300 mg PO DAILY 05/25/19 Cyclosporine [Restasis] 1 gtt EACH EYE BID 02/04/20 Gabapentin 1 tab PO BEDTIME 02/04/20 Pantoprazole Sodium [Protonix] 1 tab PO DAILY 02/04/20 Thyroid,Pork [Media Relations Intern Thyroid] 1 tab PO DAILY 02/04/20 Topiramate [Topamax] 1 tab PO DAILY 02/04/20 Zolpidem Tartrate [Ambien] 1 tab PO BEDTIME 02/04/20 levoFLOXacin [Levaquin*] 500 mg PO DAILY #7 tab 02/05/20 New Medications: levoFLOXacin [Levaquin*] 500 mg PO DAILY #7 tab Patient Discharge Instructions: MAKE SURE TO MAKE APT WITH DR. DAMON FOR SMALL NODULE IN YOUR LUNG. YOU CAN TAKE COPY OF THE REPORT TO HIM. I GAVE YOU COPY TODAY. Followup: Tarun Reyes MD [ACTIVE - CAN ADMIT] - (Call to make an appointment. )
[2020-02-05 15:19] VITALS: BP 99/54; TEMP 97.3
[2020-02-06] MEDS ORDERED: PANTOPRAZOLE SODIUM 40 MG PO SCH (07:30)
[2020-02-06] MEDS ORDERED: NP THYROID 15 MG PO SCH (07:30)
[2020-02-06] MEDS ORDERED: THYROID PORK PO SCH (07:30)
[2020-02-06] MEDS ORDERED: Gabapentin 300 MG CAP PO SCH ×3 (09:00)
== END 2020-02-05 13:00 | disposition home or self-care (01) ==
LOC: ER 14:17 → 2ND 22:12
PROVIDERS: ADMIT Internal Medicine; ATTEND Internal Medicine
DX: J98.8 Other specified respiratory disorders (principal); R53.1 Weakness; E66.01 Morbid (severe) obesity due to excess calories; G30.9 Alzheimer's disease, unspecified; F02.80 Dementia in other diseases classified elsewhere, unspecified severity, without behavioral disturbance, psychotic disturbance, mood disturbance, and anxiety; E86.0 Dehydration; M79.2 Neuralgia and neuritis, unspecified; Z20.828 Contact with and (suspected) exposure to other viral communicable diseases; Z85.3 Personal history of malignant neoplasm of breast; Z86.711 Personal history of pulmonary embolism; Z87.891 Personal history of nicotine dependence; M79.7 Fibromyalgia; K21.9 Gastro-esophageal reflux disease without esophagitis; G47.00 Insomnia, unspecified; F32.9 Major depressive disorder, single episode, unspecified; Z96.653 Presence of artificial knee joint, bilateral; I89.0 Lymphedema, not elsewhere classified; Z68.36 Body mass index [BMI] 36.0-36.9, adult
CPT/HCPCS: 93005 ×2; 87040; 85025 ×2; 80048 ×2; 36415; 83735; 85049; 85610; 85379; 83605; 84484 ×2; 83880; 87804 ×2; 70450; 72125; 71275; 71045; 90471; 93970; 97161; 96375; 96372; 96374; 99285; U0003; Q9967; Q2035; J0456; J1650 ×2; J1100; J0696 ×3; J7050; G0378 ×3

== ENCOUNTER 2020-02-12 11:57 | Emergency (ER) | payer OTHER ==
--- OUTSIDE RECORDS SUMMARY | 2020-02-12 11:59 | XMS REPORT | Clinical Summary ---
:1940 Author Organization [facility] Address [address] [place] [address] Care Team Providers Name Role Phone Garrett [...] (Primary Dx) 10/18/2019 Travel 10/07/2019 Travel after 02/11/2019 Medical History Medical History Date Comments Hypertension [...] procedure are in the results section. after 02/11/[address] Abd/Pelvic External Study (09/15/2019 10:37 AM CDT) Specimen Narrative Performed At This exam was not acquired at a [facility] t facility and has not been [facility] interpreted by a [facility] Provider. T he exam was imported into our imaging system. Performing Organization Address City/State/ZIP Code Phon e Number [facility] [address] [place] [address] after 02/11/2019 Advance Directives For more information, please contact: [phone] Type Date Recorded Patient Scientific Director Explanati on Advance Directives, Living Will and Medical Power of Webbing Supervisor
--- OUTSIDE RECORDS SUMMARY | 2020-02-12 12:00 | XMS REPORT | Continuity of Care Document ---
:1940 Author Organization [facility] t Address [address] [place] [address] Care Team Providers Name Role Phone Farhat HOLT Primary Care Physician Hilton HOLT Attending Clinician Payers Payer Name Policy Type Policy Effective Date Expiration Date Sour ce Number AETNA MEDICAREAETNA [id number] 2013 [place] MED[place] H[place]/PPO 00:00:00 [facility] [id number]/04/2013 -PresentHMO Problems This patient has no known [...] to drug Sulfa Propensi Active Unknown 2020-0 [employer] [place] (Sulfona ty to Reaction 6-30 [facility] adverse 00:00: st Antibiot reaction 00 ics) s to drug Acetamin Propensi Active Unknown 2020-0 [place] ophen ty to Reaction 6-30 [facility] adverse 00:00: st reaction 00 s to drug Family History Family Member Diagnosis Comments Start Date Stop Date Source Natural father Diabetes [facility] Natural father Heart disease Peter Hidalgo Natural father Hypertension [employer] [facility] Natural mother Asthma [facility] Social History Social Habit Start Date Stop Date Quantity Comments Source History of tobacco Current smoker [place] [facility] Alcohol Std Drinks [facility] Alcohol Binge Sex Assigned At [facility] ethodist Cigarettes smoked 2019-10-18 2019-10-18 [place] [facility] current (pack per 00:00:00 00:00:00 day) - Reported Cigarette 2019-10-18 2019-10-18 [facility] pack-years 00:00:00 00:00:00 Tobacco use and 2019-10-18 2019-10-18 Never used [facility]ist exposure 00:00:00 00:00:00 Alcohol intake 2019-10-18 2019-10-18 Lifetime [facility] 00:00:00 00:00:00 non-drinker (finding) History SDOH 2019-10-18 2019-10-18 1 [employer] [facility] Alcohol Frequency 00:00:00 00:00:00 Smoking Status Start Date Stop Date Source Former smoker 2019-10-18 00:00:00 2019-10-18 00:00:00 [facility] Medications This patient has no known medications. Vital Signs Vital Name Observation Time Observation Value Comments Source Body height 2019-10-18 11:34:00 160 cm [employer] [place] [facility] Body weight 2019-10-18 11:34:00 95.255 kg [employer] [place] [facility] BMI 2019-10-18 11:34:00 37.20 kg/m2 [employer] [place] [facility] Procedures Procedure Date / Time Performed Performing Clinician [facility] e CT ABD/PELVIC EXTERNAL 2019-09-15 10:37:00 Renan Canela [facility] STUDY Plan of Care Planned Activity Planned Date Details Comments Source Future Scheduled 2019-11-19 INFLUENZA VACCINE [place] [facility] Test 00:00:00 [code = INFLUENZA VACCINE] Future Scheduled 2006 65+ PNEUMOCOCCAL [employer] [facility] Test 00:00:00 VACCINE (1 of 1 - PPSV23) [code = 65+ PNEUMOCOCCAL VACCINE (1 of 1 - PPSV23)] Future Scheduled 1991 SHINGLES VACCINES (#1) [facility] [facility] Test 00:00:00 [code = SHINGLES VACCINES (#1)] Encounters Start End Encounter Admission Attending Care Care Encounter Source Date/Time Date/Time Type Type Clinicians Facility Department ID 2019-10-18 2019-10-18 Outpatient [facility] [id number] [employer] [place] 00:00:00 00:00:00 [facility]NA[facility] [address] 2019-10-18 2019-10-18 Outpatient [facility] [id number] [employer] [place] 00:00:00 00:00:00 [facility] [address] Results Test Description Test Time Test Comments Results Result [facility] e Comments CT Abd/Pelvic 2019-10-18 This exam was not [place] External Study 12:24:47 acquired at a [facility] facility and has not been interpreted by a [facility] Provider. The exam was imported into our imaging system.
[2020-02-12] MEDS ORDERED: HYDROCODONE/CHLORPHEN 5 ML/OSYR ONE (12:35)
[2020-02-12 12:59] LABS: Absolute Lymphocytes (CBC) 2.3 K/uL (0.7-4.9); Basophils % 1.2 % (0-1.3); Hematocrit 42.8 % (36.0-45.0); Lymphocytes % 30.4 % (15.3-44.8); RBC Red Blood Cell Count 4.36 M/uL (3.86-4.86)
--- NOTE | 2020-02-12 13:08 | RAD REPORT ---
EXAM DESCRIPTION: RAD - Chest Single View - 02/12/2020 12:48 pm CLINICAL HISTORY: COUGH COMPARISON: Portable chest February 02 TECHNIQUE: AP portable chest image was obtained 02/12/2020 12:48 pm . FINDINGS: Lung volumes are low. No new mass or consolidation. Interstitial pattern is fractionally i ncreased from the comparison study. Heart and vasculature are normal. No measurable pleural effusion and no pneumothorax. No acute bony abnormality seen. No acute aortic findings suspected. IMPRESSION: No new mass or consolidation. Slight increase in the interstitial pattern could be mild infiltrate or edema.
[2020-02-12] MEDS ORDERED: BENZONATATE 100 MG CAP PO ONE (13:35)
--- NOTE | 2020-02-12 13:48 | EDPHYS ---
Physician Documentation [facility] Name: Agnes Calabrese Age: 80 yrs Sex: Female : 1940 Arrival Date: 02/12/2020 Time: 11:59 Bed 2 Private MD: Garrett Dougherty V ED Physician Nick Herring HPI: 02/11 12:26 This 80 yrs old Female presents to ER via Ambulatory with complaints of Cough.rn 12:26 The patient or guardian reports cough. Onset: The symptoms/episode began/occurred 1 rn week(s) ago. Severity of symptoms: At their worst the symptoms were moderate, in the emergency department the symptoms are unchanged. Modifying factors: The symptoms are alleviated by nothing, the symptoms are aggravated by nothing. The patient has experienced similar episodes in the past. The patient has been recently been admitted at [facility]. Reports cough, worsening over last week, was admitted after fall, sent home on levaquin, still taking, no fever, non-productive cough.. Historical: - Allergies: 12:10 clindamycin HCl (bulk); sv 12:10 Darvocet-N 100; sv 12:10 PENICILLINS; sv 12:10 Sulfa (Sulfonamide Antibiotics); sv - PMHx: 12:10 insomnia; Depression; GERD; Cancer; Fibromyalgia; lymphedema; skipped heart beats; sv - PSHx: 12:10 Appendectomy; Hysterectomy; Mastectomy, Left; knee replacements; lumbar fusion; sv cervical fusion; - Immunization history:: Flu vaccine is up to date. - Social history:: Smoking status: Patient/guardian denies using tobacco, but has a distant history of tobacco abuse, Smoking status: Patient/guardian denies using tobacco, the patient reports quitting approximately 45 years ago. - Family history:: not pertinent. - Hospitalizations: : The patient was recently seen at [facility]. ROS: 12:26 Constitutional: Negative for fever, chills, and weight loss, Eyes: Negative for injury, rn pain, redness, and discharge, Cardiovascular: Negative for chest pain, palpitations, and edema, Respiratory: Negative for wheezing, and pleuritic chest pain, Abdomen/GI: Negative for abdominal pain, nausea, vomiting, diarrhea, and constipation, MS/Extremity: Negative for injury and deformity, Skin: Negative for injury, rash, and discoloration, Neuro: Negative for headache, numbness, tingling, and seizure. Exam: 12:26 Constitutional: Overweight female, ambulatory to room without assistance Head/Face: rn Normocephalic, atraumatic. Cardiovascular: Regular rate and rhythm. No pulse deficits. Respiratory: Mild tachypnea, no retractions, diminished at bases, + somewhat frequent non-productive cough Abdomen/GI: soft, non-tender Skin: Warm, dry MS/ Extremity: Pulses equal, no cyanosis. Neurovascular intact. Full, normal range of motion. Equal circumference. Neuro: Awake and alert, GCS 15, oriented to person, place, time, and situation. Vital Signs: 12:15 BP 157 / 83; Pulse 80; Resp 20; Temp 99.5(O); Pulse Ox 94% ; Pain 7/10; ll1 13:19 BP 117 / 71; Pulse 61; Resp 16; Pulse Ox 99% ; sv MDM: 12:06 Patient medically screened. rn 13:45 Differential Diagnosis: Bronchitis Influenza Upper Respiratory Infection Allergic rn Rhinitis Viral Syndrome Pneumonia. Data reviewed: vital signs, nurses notes, lab test result(s), radiologic studies, plain films, and as a result, I will discharge patient. Counseling: I had a detailed discussion with the patient and/or guardian regarding: the historical points, exam findings, and any diagnostic results supporting the discharge/admit diagnosis, lab results, radiology results, the need for outpatient follow up, to return to the emergency department if symptoms worsen or persist or if there are any questions or concerns that arise at home. Response to treatment: the patient's symptoms have mildly improved after treatment, and as a result, I will discharge patient. Special discussion: I discussed with the patient/guardian in detail that at this point there is no indication for admission to the hospital. It is understood, however, that if the symptoms persist or worsen the patient needs to return immediately for re-evaluation. Based on the history and exam findings, there is no indication for further emergent testing or inpatient evaluation. I discussed with the patient/guardian the need to see the machining supervisor for further evaluation of the symptoms. ED course: Oxygen ok, cough improved, no definitive pneumonia on CXR, stable vitals, has f/u appt with Dr. Reyes tomorrow. Will dc home with continuation of levaquin, add cough medication, and recommend humidifier and return precautions. . 02/11 12:20 Order name: CBC with Diff; Complete Time: 13:10 rn 02/11 12:20 Order name: Basic Metabolic Panel; Complete Time: 13:10 rn 02/11 12:20 Order name: XRAY Chest (1 view); Complete Time: 13:10 rn 02/11 12:20 Order name: Procalcitonin; Complete Time: 13:33 rn 02/11 12:20 Order name: Flu; Complete Time: 13:24 rn 02/11 12:20 Order name: IV Start; Complete Time: 12:44 rn Administered Medications: 12:30 Drug: Tussionex Pennkinetic ER 5 ml Route: PO; sv 13:24 Follow up: Response: No adverse reaction sv 13:24 Drug: Tessalon Perle 100 mg Route: PO; sv 14:11 Follow up: Response: No adverse reaction sv Disposition: 02/12/20 13:48 Discharged to Home. Impression: Cough. - Condition is Stable. - Discharge Instructions: Cough, Adult. - Prescriptions for Tessalon Perles 100 mg Oral Capsule - take 1 capsule by ORAL route every 8 hours As needed; 15 capsule. - Medication Reconciliation Form, Thank You Letter, Antibiotic Education, Prescription Opioid Use form. - Follow up: Tarun Reyes MD; When: Tomorrow; Reason: Recheck today's complaints, Re-evaluation by your physician. - Problem is an ongoing problem. - Symptoms have improved. Signatures: Dispatcher [employer] Ciara Benito RN RN Nick Tadeo MD MD rn Lewis, Lynsay, RN RN ll1 Corrections: (The following items were deleted from the chart) 14:11 13:48 02/12/2020 13:48 Discharged to Home. Impression: Cough. Condition is Stable. sv Forms are Medication Reconciliation Form, Thank You Letter, Antibiotic Education, Prescription Opioid Use. Follow up: Tarun Reyes; When: Tomorrow; Reason: Recheck today's complaints, Re-evaluation by your physician. Problem is an ongoing problem. Symptoms have improved. rn
--- NOTE | 2020-02-12 13:48 | ER ---
Nurse's Notes [facility] Name: Agnes Calabrese Age: 80 yrs Sex: Female : 1940 Arrival Date: 02/12/2020 Time: 11:59 Bed 2 Private MD: Garrett Dougherty V Diagnosis: Cough Presentation: 02/11 12:10 Coronavirus screen: Client denies travel out of the [place] in the last 14 days. The sv client reports previous COVID testing was negative. Date of collection: February 03, 2020. Ebola Screen: No symptoms or risks identified at this time. Risk Assessment: Do you want to hurt yourself or someone else? Patient reports no desire to harm self or others. 12:10 Method Of Arrival: Ambulatory 12:15 Chief complaint: Patient states: Dry cough for 1 week. On Levaquin for 1 week. Was ll1 admitted last weekend for sinus infection and hypoxia. Covid negative last week. Coronavirus screen: cough unrelated to allergies, difficulty breathing, fatigue, fever, Client presents with at least one sign or symptom that may indicate coronavirus-19. Standard/surgical mask placed on the client. Initial Sepsis Screen: Does the patient meet any 2 criteria? No. Patient's initial sepsis screen is negative. Does the patient have a suspected source of infection? Yes: Productive cough/pneumonia. Onset of symptoms was February 06, 2020. 12:15 Acuity: WARREN 3 ll1 Triage Assessment: 12:16 General: Appears in no apparent distress. uncomfortable, well developed, Behavior is sv calm, cooperative, appropriate for age. Pain: Denies pain. Neuro: Level of Consciousness is awake, alert, obeys commands, Oriented to person, place, time, situation, Gait is steady, with her walker. Respiratory: Reports cough that is non-productive, persistent. Respiratory: Denies shortness of breath. Derm: Skin is normal. Historical: - Allergies: 12:10 clindamycin HCl (bulk); sv 12:10 Darvocet-N 100; sv 12:10 PENICILLINS; sv 12:10 Sulfa (Sulfonamide Antibiotics); sv - PMHx: 12:10 insomnia; Depression; GERD; Cancer; Fibromyalgia; lymphedema; skipped heart beats; sv - PSHx: 12:10 Appendectomy; Hysterectomy; Mastectomy, Left; knee replacements; lumbar fusion; sv cervical fusion; - Immunization history:: Flu vaccine is up to date. - Social history:: Smoking status: Patient/guardian denies using tobacco, but has a distant history of tobacco abuse, Smoking status: Patient/guardian denies using tobacco, the patient reports quitting approximately 45 years ago. - Family history:: not pertinent. - Hospitalizations: : The patient was recently seen at [facility]. Screenin:08 Abuse screen: Denies threats or abuse. Denies injuries from another. Nutritional sv screening: No deficits noted. Tuberculosis screening: No symptoms or risk factors identified. 12:10 Fall Risk None identified. sv Assessment: 13:24 Reassessment: Patient appears in no apparent distress at this time. No changes from sv previously documented assessment. Patient and/or family updated on plan of care and expected duration. Pain level reassessed. Patient is alert, oriented x 3, equal unlabored respirations, skin warm/dry/pink. 14:00 Reassessment: Patient appears in no apparent distress at this time. Patient and/or sv family updated on plan of care and expected duration. Pain level reassessed. Patient is alert, oriented x 3, equal unlabored respirations, skin warm/dry/pink. Patient states feeling better. Patient states symptoms have improved. Vital Signs: 12:15 BP 157 / 83; Pulse 80; Resp 20; Temp 99.5(O); Pulse Ox 94% ; Pain 7/10; ll1 13:19 BP 117 / 71; Pulse 61; Resp 16; Pulse Ox 99% ; sv ED Course: 11:59 Patient arrived in ED. mr 11:59 Garrett Dougherty MD is Private Physician. mr 12:06 Nick Herring MD is Attending Physician. rn 12:06 Ciara Lucero RN is Primary Nurse. sv 12:06 Arm band placed on. sv 12:06 Patient has correct armband on for positive identification. Bed in low position. Call sv light in reach. Door closed. Head of bed elevated. 12:15 ED physician to see patient. sv 12:17 Triage completed. ll1 12:35 Flu and/or RSV swab sent to lab. Inserted saline lock: 24 gauge in right wrist, using sv aseptic technique. ,using aseptic technique. diffusics Blood collected. Flushed right with 2 ml normal saline. 12:43 X-ray(s) taken. sv 12:48 XRAY Chest (1 view) In Process Unspecified. EDMS 13:27 Awaiting disposition. sv 13:47 Tarun Reyes MD is Referral Physician. rn 14:11 No provider procedures requiring assistance completed. IV discontinued, intact, sv bleeding controlled, No redness/swelling at site. Pressure dressing applied. Administered Medications: 12:30 Drug: Tussionex Pennkinetic ER 5 ml Route: PO; sv 13:24 Follow up: Response: No adverse reaction sv 13:24 Drug: Tessalon Perle 100 mg Route: PO; sv 14:11 Follow up: Response: No adverse reaction sv Outcome: 13:48 Discharge ordered by MD. rn 14:11 Patient left the ED. sv 14:11 Discharged to home via wheelchair, with family. sv 14:11 Condition: stable 14:11 Condition: improved 14:11 Discharge instructions given to patient, family, Instructed on discharge instructions, follow up and referral plans. medication usage, Demonstrated understanding of instructions, follow-up care, medications, Prescriptions given X 1. Signatures: Dispatcher [employer] EDOK Ciara Lucero RN Marium Feng Roman, MD MD rn Lewis, Lynsay, RN RN ll1
[2020-02-12 14:38] VITALS: TEMP 99.5
[2020-02-12 14:39] VITALS: BP 117/71; O2SAT 99
== END 2020-02-12 14:11 | disposition home or self-care (01) ==
LOC: ER 11:57
DX: R05 Cough (principal); Z88.0 Allergy status to penicillin; Z88.2 Allergy status to sulfonamides; Z88.3 Allergy status to other anti-infective agents; Z88.5 Allergy status to narcotic agent
CPT/HCPCS: 36415; 71045; 80048; 84145; 85025; 87804; 99284

== ENCOUNTER 2020-02-23 17:21 | Emergency (ER) | payer OTHER ==
--- OUTSIDE RECORDS SUMMARY | 2020-02-23 17:23 | XMS REPORT | Continuity of Care Document ---
:1940 Author Organization [facility] t Address [address] [place] [address] Care Team Providers Name Role Phone Farhat HOLT Primary Care Physician Hilton HOLT Attending Clinician Payers Payer Name Policy Type Policy Effective Date Expiration Date Sour ce Number AETNA MEDICAREAETNA [id number] 2013 [place] MEDICARE HMO/PPO 00:00:00 Method[facility] t [id number] -PresentHMO Problems This patient has no known [...] to drug Sulfa Propensi Active Unknown 2020-0 [place] (Sulfona ty to Reaction 6-30 Method i mide adverse 00:00: st Antibiot reaction 00 ics) s to drug Acetamin Propensi Active Unknown 2020-0 [place] ophen ty to Reaction 6-30 Method[facility] adverse 00:00: st reaction 00 s to drug Family History Family Member Diagnosis Comments Start Date Stop Date Source Natural father Diabetes [facility] Natural father Heart disease [place] Natural father Hypertension [place] [facility] Natural mother Asthma [facility] Social History Social Habit Start Date Stop Date Quantity Comments Source History of tobacco Current smoker [place] [facility] Binge Sex Assigned At [facility] Cigarettes smoked 2019-10-18 2019-10-18 [place] [facility] current (pack per 00:00:00 00:00:00 day) - Reported Cigarette 2019-10-18 2019-10-18 [facility] pack-years 00:00:00 00:00:00 Tobacco use and 2019-10-18 2019-10-18 Never used [facility]ist exposure 00:00:00 00:00:00 Alcohol intake 2019-10-18 2019-10-18 Lifetime [facility]ist 00:00:00 00:00:00 non-drinker (finding) History SDOH 2019-10-18 2019-10-18 1 [place] [facility] Alcohol Frequency 00:00:00 00:00:00 Smoking Status Start Date Stop Date Source Former smoker 2019-10-18 00:00:00 2019-10-18 00:00:00 [place] [facility] Medications This patient has no known medications. Vital Signs Vital Name Observation Time Observation Value Comments Source Body height 2019-10-18 11:34:00 160 cm [place] [facility] Body weight 2019-10-18 11:34:00 95.255 kg [place] [facility] BMI 2019-10-18 11:34:00 37.20 kg/m2 [place] [facility] Procedures Procedure Date / Time Performed Performing Clinician [facility] CT ABD/PELVIC EXTERNAL 2019-09-15 10:37:00 Renan Canela [facility] STUDY Plan of Care Planned Activity Planned Date Details Comments Source Future Scheduled 2019-11-19 INFLUENZA VACCINE [place] [facility] Test 00:00:00 [code = INFLUENZA VACCINE] Future Scheduled 2006 65+ PNEUMOCOCCAL [place] [facility] Test 00:00:00 VACCINE (1 of 1 - PPSV23) [code = 65+ PNEUMOCOCCAL VACCINE (1 of 1 - PPSV23)] Future Scheduled 1991 SHINGLES VACCINES (#1) [place] [facility] Test 00:00:00 [code = SHINGLES VACCINES (#1)] Encounters Start End Encounter Admission Attending Care Care Encounter Source Date/Time Date/Time Type Type Clinicians Facility Department ID 2019-10-18 2019-10-18 Outpatient [facility] [id number] [address] [place] 00:00:00 00:00:00 RENAN [address] 2019-10-18 2019-10-18 Outpatient [facility] [id number] [place] 00:00:00 00:00:00 RENAN [address] Results Test Description Test Time Test Comments Results Result [facility] Comments CT Abd/Pelvic 2019-10-18 This exam was not [place] External Study 12:24:47 acquired at a [facility] facility and has not been interpreted by a Denominational Provider. The exam was imported into our imaging system.
--- OUTSIDE RECORDS SUMMARY | 2020-02-23 17:23 | XMS REPORT | Clinical Summary ---
:1940 Author Organization [facility] Address [address] [place] [address] Care Team Providers Name Role Phone Garrett [...] (Primary Dx) 10/18/2019 Travel 10/07/2019 Travel after 02/22/2019 Medical History Medical History Date Comments Hypertension [...] procedure are in the results section. after 02/22/[address] Abd/Pelvic External Study (09/15/2019 10:37 AM CDT) Specimen Narrative Performed At This exam was not acquired at a Methodis t facility and has not been [facility] interpreted by a [facility]ominational Provider. T he exam was imported into our imaging system. 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
--- NOTE | 2020-02-23 18:12 | RAD REPORT ---
EXAM DESCRIPTION: CT - [id number] - 02/23/2020 6:05 pm CLINICAL HISTORY: Trauma, head and neck injury. SMASH INJURY COMPARISON: Head C Spine Mpr Wo Con dated 02/03/2020; CT HEAD CSPINE MPR WO CONTRAST dated 10/24/2011; SOFT TISSUE NECK W O CONTRAST dated 08/04/2010 TECHNIQUE: Axial 5 mm thick images of the head were obtained. Axial 2 mm thick images of the cervical spine were obtained with sagittal and coronal reconstruction images generated and reviewed. All CT scans are performed using dose optimization technique as appropriate and may include automated exposure control or mA/KV adjustment according to patient size. FINDINGS: CT HEAD WITHOUT CONTRAST: No acute hemorrhage, hydrocephalus or extra-axial collection is identified.No areas of brain edema or midline shift. The paranasal sinuses and mastoids are clear.The calvarium is intact. CT CERVICAL SPINE WITHOUT CONTRAST: No fracture or subluxation.Hardware is present spanning C4-7.No prevertebral soft tissues swelling is identified. IMPRESSION: No acute intracranial or cervical spine findings.
[2020-02-23] MEDS ORDERED: FENTANYL CITR 100 MCG/2 ML ONE (18:48)
--- NOTE | 2020-02-23 18:51 | ER ---
Nurse's Notes [facility] Name: Agnes Calabrese Age: 80 yrs Sex: Female : 1940 Arrival Date: 02/23/2020 Time: 17:37 Bed 19 Private MD: Diagnosis: Fall on same level, unspecified;Unspecified injury of head;Laceration without foreign body of scalp Presentation: 02/22 17:30 Chief complaint: EMS states: Pt. was walking to the bed with her walker when she over rb3 stepped and lost her footing causing her to fall. LOC is unknown. Has laceration to the left side of the head, bleeding is controlled. Denies taking blood thinners. BS 183, T 98.8 Allergy to Penicillin, Sulfa, and Cleocin. Coronavirus screen: At this time, the client does not indicate any symptoms associated with coronavirus-19. Ebola Screen: Patient denies travel to an Ebola-affected area in the 21 days before illness onset. Complicating Factors: There are no complicating factors for this patient. Initial Sepsis Screen: Does the patient meet any 2 criteria? No. Patient's initial sepsis screen is negative. Does the patient have a suspected source of infection? Yes: Skin breakdown/wound. Risk Assessment: Do you want to hurt yourself or someone else? Patient reports no desire to harm self or others. Onset of symptoms was February 23, 2020 at 16:30. 17:30 Method Of Arrival: EMS: [facility] rb3 17:30 Acuity: WARREN 3 rb3 Triage Assessment: 17:30 General: Appears in no apparent distress. comfortable, Behavior is calm, cooperative. rb3 Pain: Complains of pain in left side of her head Pain currently is 8 out of 10 on a pain scale. Pain began 1 hour ago. Neuro: Level of Consciousness is awake, obeys commands, confused, Oriented to person, place, situation. Cardiovascular: Patient's skin is warm and dry. Respiratory: Airway is patent Respiratory effort is even, unlabored, Respiratory pattern is regular, symmetrical. GI: No signs and/or symptoms were reported involving the gastrointestinal system. : No signs and/or symptoms were reported regarding the genitourinary system. Injury Description: Laceration sustained to left side of head is not bleeding, was sustained 1-2 hours ago. is bleeding no active bleeding noted. Historical: - Allergies: 17:30 clindamycin HCl (bulk); rb3 17:30 Darvocet-N 100; rb3 17:30 PENICILLINS; rb3 17:30 Sulfa (Sulfonamide Antibiotics); rb3 - Home Meds: 17:30 duloxetine 60 mg Oral cpDR 2 caps once daily [Active]; Macrodantin 50 mg Oral cap 1 cap rb3 once daily [Active]; metoprolol succinate 50 mg Oral Tb24 1 tab once daily [Active]; potassium chloride 10 mEq Oral cpER 1 cap 2 times per day [Active]; Seroquel 100 mg Oral tab daily [Active]; simvastatin 40 mg Oral tab 1 tab once daily [Active]; spironolactone 20mg Oral once daily [Active]; tramadol 50 mg Oral tab 2 times daily [Active]; - PMHx: 17:30 Cancer; Depression; Fibromyalgia; insomnia; GERD; skipped heart beats; lymphedema; rb3 - PSHx: 17:30 Appendectomy; Hysterectomy; Mastectomy, Left; knee replacements; lumbar fusion; rb3 cervical fusion; - Immunization history:: Adult Immunizations up to date, Last tetanus immunization: up to date. - Social history:: Smoking status: Patient/guardian denies using. Screenin:30 Abuse screen: Denies threats or abuse. Nutritional screening: No deficits noted. rb3 Tuberculosis screening: No symptoms or risk factors identified. Fall Risk Fall in past 12 months (25 points). Secondary diagnosis (15 points) impaired mobility, No IV (0 pts). Ambulatory Aid- Crutches/Cane/Walker (15 pts). Gait- Impaired (20 pts.). Mental Status- Overestimates/Forgets Limitations (15 pts.). Total Arredondo Fall Scale indicates High Risk Score (45 or more points). Fall prevention measures have been instituted. Side Rails Up X 2 Placed Close to Nursing Station 1:1 Attendant Assigned Frequent Obs/Assessments Occuring Family Present and informed to notify staff if the need to leave the bedside As available patient and family educated on Fall Prevention Program and Strategies. Assessment: 17:30 Musculoskeletal: Range of motion: intact in all extremities. rb3 18:30 Reassessment: Patient appears in no apparent distress at this time. No changes from rb3 previously documented assessment. Vital Signs: 17:30 BP 122 / 76; Pulse 83; Resp 17; Temp 97.9; Pulse Ox 96% on R/A; Weight 93.44 kg; Height rb3 5 ft. 3 in. (160.02 cm); Pain 8/10; 17:30 Body Mass Index 36.49 (93.44 kg, 160.02 cm) rb3 ED Course: 17:30 Arm band placed on right wrist. rb3 17:30 Patient has correct armband on for positive identification. Bed in low position. Call rb3 light in reach. Side rails up X 1. pvc monitor on. Pulse ox on. NIBP on. Warm blanket given. 17:37 Patient arrived in ED. rb3 17:42 Triage completed. rb3 17:46 Jacqueline Philippe FNP-C is PHCP. tho 18:05 CT Head C Spine In Process Unspecified. EDMS Administered Medications: 18:39 Drug: fentaNYL (PF) 25 mcg Route: IM; Site: right deltoid; rb3 Outcome: 18:51 Discharge ordered by MD. nettles Signatures: Dispatcher [employer] EDMS Jacqueline Philippe FNP-C FNP-Cheryl Pino, RN RN rb3
--- NOTE | 2020-02-23 18:52 | EDPHYS ---
Physician Documentation [facility] Name: Agnes Calabrese Age: 80 yrs Sex: Female : 1940 Arrival Date: 02/23/2020 Time: 17:37 Bed 19 Private MD: ED Physician HPI: 02/22 18:35 This 80 yrs old Female presents to ER via EMS with complaints of Laceration snw To Head. 18:35 The patient has a laceration related to: tripped over walker and fell back striking snw head on dresser occurred at home, and there are no complicating factors. The injury was accidental. The laceration(s) is(are) located on the left temporal area. Onset: The symptoms/episode began/occurred suddenly, just prior to arrival. Associated signs and symptoms: The patient has no apparent associated signs or symptoms. It is unknown whether or not the patient has had similar symptoms in the past. The patient has been recently seen by a physician:. no known loss of consciousness. Historical: - Allergies: 17:30 clindamycin HCl (bulk); rb3 17:30 Darvocet-N 100; rb3 17:30 PENICILLINS; rb3 17:30 Sulfa (Sulfonamide Antibiotics); rb3 - Home Meds: 17:30 duloxetine 60 mg Oral cpDR 2 caps once daily [Active]; Macrodantin 50 mg Oral cap 1 cap rb3 once daily [Active]; metoprolol succinate 50 mg Oral Tb24 1 tab once daily [Active]; potassium chloride 10 mEq Oral cpER 1 cap 2 times per day [Active]; Seroquel 100 mg Oral tab daily [Active]; simvastatin 40 mg Oral tab 1 tab once daily [Active]; spironolactone 20mg Oral once daily [Active]; tramadol 50 mg Oral tab 2 times daily [Active]; - PMHx: 17:30 Cancer; Depression; Fibromyalgia; insomnia; GERD; skipped heart beats; lymphedema; rb3 - PSHx: 17:30 Appendectomy; Hysterectomy; Mastectomy, Left; knee replacements; lumbar fusion; rb3 cervical fusion; - Immunization history:: Adult Immunizations up to date, Last tetanus immunization: up to date. - Social history:: Smoking status: Patient/guardian denies using. ROS: 18:33 Constitutional: Negative for fever, chills, and weight loss, Eyes: Negative for injury, snw pain, redness, and discharge, ENT: Negative for injury, pain, and discharge, Neck: Negative for injury, pain, and swelling, Cardiovascular: Negative for chest pain, palpitations, and edema, Respiratory: Negative for shortness of breath, cough, wheezing, and pleuritic chest pain, Abdomen/GI: Negative for abdominal pain, nausea, vomiting, diarrhea, and constipation, Back: Negative for injury and pain, : Negative for injury, bleeding, discharge, and swelling, MS/Extremity: Negative for injury and deformity, Neuro: Negative for headache, weakness, numbness, tingling, and seizure, Psych: Negative for depression, anxiety, suicide ideation, homicidal ideation, and hallucinations. 18:33 Skin: Positive for laceration(s), of the left temporo-occipital area. Exam: 18:32 Constitutional: This is a well developed, well nourished patient who is awake, alert, snw and in no acute distress. Eyes: Pupils equal round and reactive to light, extra-ocular motions intact. Lids and lashes normal. Conjunctiva and sclera are non-icteric and not injected. Cornea within normal limits. Periorbital areas with no swelling, redness, or edema. ENT: Nares patent. No nasal discharge, no septal abnormalities noted. Tympanic membranes are normal and external auditory canals are clear. Oropharynx with no redness, swelling, or masses, exudates, or evidence of obstruction, uvula midline. Mucous membranes moist. Neck: Trachea midline, no thyromegaly or masses palpated, and no cervical lymphadenopathy. Supple, full range of motion without nuchal rigidity, or vertebral point tenderness. No Meningismus. Chest/axilla: Normal chest wall appearance and motion. Nontender with no deformity. No lesions are appreciated. Cardiovascular: Regular rate and rhythm with a normal S1 and S2. No gallops, murmurs, or rubs. Normal PMI, no JVD. No pulse deficits. Respiratory: Lungs have equal breath sounds bilaterally, clear to auscultation and percussion. No rales, rhonchi or wheezes noted. No increased work of breathing, no retractions or nasal flaring. Abdomen/GI: Soft, non-tender, with normal bowel sounds. No distension or tympany. No guarding or rebound. No evidence of tenderness throughout. Back: No spinal tenderness. No costovertebral tenderness. Full range of motion. Skin: Warm, dry with normal turgor. Normal color with no rashes, no lesions, and no evidence of cellulitis. MS/ Extremity: Pulses equal, no cyanosis. Neurovascular intact. Full, normal range of motion. Neuro: Awake and alert, GCS 15, oriented to person, place, time, and situation. Cranial nerves II-XII grossly intact. Motor strength 5/5 in all extremities. Sensory grossly intact. Cerebellar exam normal. Normal gait. Psych: Awake, alert, with orientation to person, place and time. Behavior, mood, and affect are within normal limits. 18:32 Head/face: Noted is a laceration(s), that is deep, that is linear, 5 cm(s), of the left temporal area. Vital Signs: 17:30 BP 122 / 76; Pulse 83; Resp 17; Temp 97.9; Pulse Ox 96% on R/A; Weight 93.44 kg; Height rb3 5 ft. 3 in. (160.02 cm); Pain 8/10; 17:30 Body Mass Index 36.49 (93.44 kg, 160.02 cm) rb3 MDM: 17:52 Patient medically screened. snw 02/22 17:58 Order name: Wound Care snw 02/22 17:47 Order name: CT Head C Spine; Complete Time: 18:20 snw Administered Medications: 18:39 Drug: fentaNYL (PF) 25 mcg Route: IM; Site: right deltoid; rb3 Disposition: 02/23/20 18:51 Discharged to Home. Impression: Fall on same level, unspecified, Unspecified injury of head, Laceration without foreign body of scalp. - Condition is Stable. - Medication Reconciliation Form, Thank You Letter, Antibiotic Education, Prescription Opioid Use form. - Follow up: Emergency Department; When: As needed; Reason: Worsening of condition. Follow up: Private Physician; When: 5 - 6 days; Reason: Recheck today's complaints, Continuance of care, Staple/Suture removal, Re-evaluation by your physician. Signatures: Dispatcher [employer] Jacqueline Recinos, HAIR DRYER-C HAIR DRYER-Csnw Canela, Cheryl, RN RN rb3
[2020-02-23 21:43] VITALS: TEMP 97.9
[2020-02-23 21:44] VITALS: BP 131/72; O2SAT 95
== END 2020-02-23 19:56 | disposition home or self-care (01) ==
LOC: ER 17:21
DX: S01.01XA Laceration without foreign body of scalp, initial encounter (principal); W01.198A Fall on same level from slipping, tripping and stumbling with subsequent striking against other object, initial encounter; Y93.89 Activity, other specified; Y92.009 Unspecified place in unspecified non-institutional (private) residence as the place of occurrence of the external cause; F32.9 Major depressive disorder, single episode, unspecified; K21.9 Gastro-esophageal reflux disease without esophagitis; Z88.0 Allergy status to penicillin; Z88.2 Allergy status to sulfonamides; Z88.4 Allergy status to anesthetic agent; Z88.5 Allergy status to narcotic agent; Z90.12 Acquired absence of left breast and nipple
CPT/HCPCS: 70450; 72125; 96372; 99284; J3010

== ENCOUNTER 2020-03-17 19:00 | Emergency (ER) | payer OTHER ==
--- OUTSIDE RECORDS SUMMARY | 2020-03-17 19:03 | XMS REPORT | Continuity of Care Document ---
:1940 Author Organization [facility] t Address [address] [place] [address] Care Team Providers Name Role Phone Farhat HOLT Primary Care Physician Hilton HOLT Attending Clinician Payers Payer Name Policy Type Policy Effective Date Expiration Date Sour ce Number AETNA MEDICAREAETNA [id number] 2013 [place] MEDICARE HMO/PPO 00:00:00 Methodis t [id number] -PresentHMO Problems This patient has no known [...] to drug Sulfa Propensi Active Unknown 2020-0 [place] (Sulfona ty to Reaction 6-30 Method i mide adverse 00:00: st Antibiot reaction 00 ics) s to drug Acetamin Propensi Active Unknown 2020-0 [place] ophen ty to Reaction 6-30 Method[facility] adverse 00:00: st reaction 00 s to drug Family History Family Member Diagnosis Comments Start Date Stop Date Source Natural father Diabetes [facility] Natural father Heart disease [place] [facility] Natural father Hypertension [place] [facility] Natural mother Asthma [facility] Social History Social Habit Start Date Stop Date Quantity Comments Source History of tobacco Current smoker [place] [facility] use History [facility] Alcohol Std Drinks History [facility] Alcohol Binge Sex Assigned At [facility] ethodist Cigarettes smoked 2019-10-18 2019-10-18 [place] [facility] current (pack per 00:00:00 00:00:00 day) - Reported Cigarette 2019-10-18 2019-10-18 [place] [facility] pack-years 00:00:00 00:00:00 Tobacco use and 2019-10-18 2019-10-18 Never used [facility] ethodist exposure 00:00:00 00:00:00 Alcohol intake 2019-10-18 2019-10-18 Lifetime [facility] 00:00:00 00:00:00 non-drinker (finding) History SDOH 2019-10-18 2019-10-18 1 [place] [facility] Alcohol Frequency 00:00:00 00:00:00 Smoking Status Start Date Stop Date Source Former smoker 2019-10-18 00:00:00 2019-10-18 00:00:00 [place] [facility] Medications This patient has no known medications. Vital Signs Vital Name Observation Time Observation Value Comments Source Body height 2019-10-18 11:34:00 160 cm [place] [facility] Body weight 2019-10-18 11:34:00 95.255 kg [place] [facility] BMI 2019-10-18 11:34:00 37.20 kg/m2 [place] [facility] Procedures Procedure Date / Time Performed Performing Clinician [facility] e CT ABD/PELVIC EXTERNAL 2019-09-15 10:37:00 Renan Canela [facility] STUDY Plan of Care Planned Activity Planned Date Details Comments Source Future Scheduled 2019-11-19 INFLUENZA VACCINE Norbertto kimberly [facility] Test 00:00:00 [code = INFLUENZA VACCINE] Future Scheduled 2006 65+ PNEUMOCOCCAL [place] [facility] Test 00:00:00 VACCINE (1 of 1 - PPSV23) [code = 65+ PNEUMOCOCCAL VACCINE (1 of 1 - PPSV23)] Future Scheduled 1991 SHINGLES VACCINES (#1) [facility] Test 00:00:00 [code = SHINGLES VACCINES (#1)] Encounters Start End Encounter Admission Attending Care Care Encounter Source Date/Time Date/Time Type Type Clinicians Facility Department ID 2019-10-18 2019-10-18 Outpatient [facility] [id number] 365 [place] 00:00:00 00:00:00 RENAN [address] 2019-10-18 2019-10-18 Outpatient [facility] [id number] 907 [place] 00:00:00 00:00:00 RENAN [address] Results Test Description Test Time Test Comments Results Result [facility] e Comments CT Abd/Pelvic 2019-10-18 This exam was not [place] External Study 12:24:47 acquired at a [facility] facility and has not been interpreted by a [facility] Provider. The exam was imported into our imaging system.
--- OUTSIDE RECORDS SUMMARY | 2020-03-17 19:03 | XMS REPORT | Clinical Summary ---
:1940 Author Organization [facility] Address [address] [place] [address] Care Team Providers Name Role Phone Garrett [...] (Primary Dx) 10/18/2019 Travel 10/07/2019 Travel after 03/17/2019 Medical History Medical History Date Comments Hypertension [...] procedure are in the results section. after 03/17/[address] Abd/Pelvic External Study (09/15/2019 10:37 AM CDT) Specimen Narrative Performed At This exam was not acquired at a Methodis t facility and has not been [facility] interpreted by a [facility] Provider. T he exam was imported into our imaging system. Performing Organization Address City/State/ZIP Code Phon e Number [facility] [address] [place] [address] after 03/17/2019 Advance Directives For more information, please contact: [phone] Type Date Recorded Patient Coupler Explanati on Advance Directives, Living Will and Medical Power of American Studies Professor
[2020-03-17 21:09] LABS: Absolute Lymphocytes (CBC) 1.2 K/uL (0.7-4.9); Basophils % 0.4 % (0-1.3); Hematocrit 44.6 % (36.0-45.0); Lymphocytes % 9.1 % (15.3-44.8); RBC Red Blood Cell Count 4.44 M/uL (3.86-4.86)
[2020-03-17] MEDS ORDERED: NA CHLORIDE 0.9% 1,000 ML ONE (21:13)
[2020-03-17 21:20] LABS: Albumin 3.4 g/dL (3.4-5.0); Bilirubin Direct 0.2 mg/dL (0-0.2); Bilirubin Total 0.8 mg/dL (0.2-1.0); Potassium 3.2 mmol/L (3.5-5.1); Protein, Total 6.8 g/dL (6.4-8.2)
[2020-03-17] MEDS ORDERED: POTASSIUM 25 MEQ EFFERV TAB ONE (22:19)
[2020-03-17 23:40] LABS: Urine Blood NEGATIVE (NEG); Urine Glucose NEGATIVE (NEG); Urine Protein NEGATIVE (NEG); Urine Specific Gravity 1.015 (1.005-1.030)
[2020-03-18] MEDS ORDERED: NITROFURAN MACRO 100 MG CAP PO ONE (00:48)
--- NOTE | 2020-03-18 00:57 | EDPHYS ---
Physician Documentation [facility] Name: Agnes Calabrese Age: 80 yrs Sex: Female : 1940 Arrival Date: 03/17/2020 Time: 19:52 Bed 4 Private MD: ED Physician Obdulio Albarado HPI: 03/17 20:42 This 80 yrs old Female presents to ER via Ambulatory with complaints of mh7 Diarrhea. 20:42 The patient presents to the emergency department with diarrhea, that is intermittent, 8 mh7 times since the onset of symptoms. Onset: The symptoms/episode began/occurred today, at 15:00. Possible causes: unknown. The symptoms are aggravated by nothing. The symptoms are alleviated by nothing. Associated signs and symptoms: Pertinent negatives: abdominal pain, anorexia, belching, constipation, dysuria, fever, flatulence, GI bleeding, hematuria, nausea, vaginal discharge, vomiting. Severity of symptoms: At their worst the symptoms were moderate today, in the emergency department the symptoms have improved moderately. Historical: - Allergies: 20:09 clindamycin HCl (bulk); sg 20:09 Darvocet-N 100; sg 20:09 PENICILLINS; sg 20:09 Sulfa (Sulfonamide Antibiotics); sg - PMHx: 20:09 Cancer; Depression; Fibromyalgia; GERD; insomnia; lymphedema; skipped heart beats; sg - PSHx: 20:09 Appendectomy; Hysterectomy; Mastectomy, Left; knee replacements; lumbar fusion; sg cervical fusion; - Immunization history:: Adult Immunizations up to date. - Social history:: Smoking status: Patient denies any tobacco usage or history of. ROS: 20:42 Constitutional: Negative for fever, chills, and weight loss, Eyes: Negative for injury, mh7 pain, redness, and discharge, ENT: Negative for injury, pain, and discharge, Neck: Negative for injury, pain, and swelling, Cardiovascular: Negative for chest pain, palpitations, and edema, Respiratory: Negative for shortness of breath, cough, wheezing, and pleuritic chest pain, Back: Negative for injury and pain, : Negative for injury, bleeding, discharge, and swelling, MS/Extremity: Negative for injury and deformity, Skin: Negative for injury, rash, and discoloration, Neuro: Negative for headache, weakness, numbness, tingling, and seizure, Psych: Negative for depression, anxiety, suicide ideation, homicidal ideation, and hallucinations, Allergy/Immunology: Negative for hives, rash, and allergies, Endocrine: Negative for neck swelling, polydipsia, polyuria, polyphagia, and marked weight changes, Hematologic/Lymphatic: Negative for swollen nodes, abnormal bleeding, and unusual bruising. Exam: 20:42 Constitutional: This is a well developed, well nourished patient who is awake, alert, mh7 and in no acute distress. Head/Face: Normocephalic, atraumatic. Eyes: Pupils equal round and reactive to light, extra-ocular motions intact. Lids and lashes normal. Conjunctiva and sclera are non-icteric and not injected. Cornea within normal limits. Periorbital areas with no swelling, redness, or edema. Neck: Trachea midline, no thyromegaly or masses palpated, and no cervical lymphadenopathy. Supple, full range of motion without nuchal rigidity, or vertebral point tenderness. No Meningismus. Chest/axilla: Normal chest wall appearance and motion. Nontender with no deformity. No lesions are appreciated. Cardiovascular: Regular rate and rhythm with a normal S1 and S2. No gallops, murmurs, or rubs. Normal PMI, no JVD. No pulse deficits. Respiratory: Lungs have equal breath sounds bilaterally, clear to auscultation and percussion. No rales, rhonchi or wheezes noted. No increased work of breathing, no retractions or nasal flaring. Abdomen/GI: Soft, non-tender, with normal bowel sounds. No distension or tympany. No guarding or rebound. No evidence of tenderness throughout. Back: No spinal tenderness. No costovertebral tenderness. Full range of motion. Skin: Warm, dry with normal turgor. Normal color with no rashes, no lesions, and no evidence of cellulitis. MS/ Extremity: Pulses equal, no cyanosis. Neurovascular intact. Full, normal range of motion. Neuro: Awake and alert, GCS 15, oriented to person, place, time, and situation. Cranial nerves II-XII grossly intact. Motor strength 5/5 in all extremities. Sensory grossly intact. Cerebellar exam normal. Normal gait. Psych: Awake, alert, with orientation to person, place and time. Behavior, mood, and affect are within normal limits. Vital Signs: 20:00 BP 128 / 63; Pulse 61; Resp 16; Temp 98.4; Pulse Ox 99% ; rr5 21:00 BP 119 / 70; Pulse 59; Resp 17; Pulse Ox 98% ; rr5 22:00 BP 121 / 62; Pulse 60; Resp 16; Pulse Ox 98% ; rr5 22:40 BP 127 / 83; Pulse 62; Resp 16; Pulse Ox 99% ; rr5 03/18 00:00 BP 116 / 89; Pulse 64; Resp 17; Pulse Ox 98% ; rr5 01:00 BP 111 / 62; Pulse 69; Resp 17; Pulse Ox 99% ; rr5 MDM: 00:54 Differential diagnosis: pancreatitis, diverticulitis, viral gastroenteritis, mh7 gastroenteritis, Diarrhea, UTI. Data reviewed: vital signs, nurses notes, old medical records, lab test result(s), CBC, electrolytes, urinalysis, EKG, radiologic studies, CT scan. Data interpreted: Pulse oximetry: on room air is 99 %. Interpretation: normal. Counseling: I had a detailed discussion with the patient and/or guardian regarding: the historical points, exam findings, and any diagnostic results supporting the discharge/admit diagnosis, lab results, radiology results, the need for outpatient follow up, to return to the emergency department if symptoms worsen or persist or if there are any questions or concerns that arise at home. Response to treatment: the patient's symptoms have resolved after treatment, the patient's blood pressure is in an acceptable range, mental status has returned to baseline, the patient no longer shows bradycardia, the patient is not short of breath, the patient is not tachycardic, the patient's pain is gone, the patient's temperature has normalized. 00:56 Patient medically screened. [facility] 03/17 20:39 Order name: Basic Metabolic Panel; Complete Time: 21:36 [facility] 03/17 20:39 Order name: CBC with Diff; Complete Time: 21:36 [facility] 03/17 20:39 Order name: Hepatic Function; Complete Time: 21:36 [facility] 03/17 20:39 Order name: Lipase; Complete Time: 21:36 [facility] 03/17 21:36 Order name: Magnesium; Complete Time: 22:06 [facility] 03/17 22:52 Order name: Urine Dipstick--Ancillary (enter results); Complete Time: 23:42 tt3 03/17 20:39 Order name: IV Saline Lock; Complete Time: 20:57 mh7 03/17 20:39 Order name: Labs collected and sent; Complete Time: 20:58 mh7 03/17 20:39 Order name: Urine Dipstick-Ancillary (obtain specimen); Complete Time: 22:53 mh7 03/17 22:47 Order name: Abdomen EDMS 03/17 21:39 Order name: EKG - Nurse/Tech; Complete Time: 22:22 mh7 03/18 00:32 Order name: PO challenge; Complete Time: 00:36 mh7 Administered Medications: 03/17 21:01 Drug: NS 0.9% 1000 ml Route: IV; Rate: 1000 ml; Site: right hand; rr5 22:00 Follow up: Response: No adverse reaction; IV Status: Completed infusion; IV Intake: rr5 1000ml 22:22 Drug: Potassium Effervescent Tablet 25 mEq Route: PO; rr5 23:20 Follow up: Response: No adverse reaction rr5 03/18 00:36 Drug: Macrobid 100 mg Route: PO; rr5 01:15 Follow up: Response: No adverse reaction rr5 Disposition: 03/18/20 00:56 Discharged to Home. Impression: Diarrhea, unspecified, Urinary tract infection, site not specified. - Condition is Stable. - Discharge Instructions: Diarrhea, Adult, Urinary Tract Infection, Adult. - Prescriptions for Flagyl 500 mg Oral Tablet - take 1 tablet by ORAL route every 12 hours for 7 days; 14 tablet. Macrobid 100 mg Oral Capsule - take 1 capsule by ORAL route every 12 hours for 7 days; 14 capsule. - Medication Reconciliation Form, Thank You Letter, Antibiotic Education, Prescription Opioid Use form. - Follow up: Private Physician; When: 1 - 2 days; Reason: Worsening of condition, Recheck today's complaints, Continuance of care, Re-evaluation by your physician. - Problem is new. - Symptoms have improved. Signatures: Dispatcher [employer] EDArmin Gentile, RN RN Jacqueline Peralta, PRODUCTION MACHINE COMPUTER OPERATOR-C PRODUCTION MACHINE COMPUTER OPERATOR-Csnw Clint Martines RN RN rr5 Obdulio Albarado MD MD 7 Corrections: (The following items were deleted from the chart) 03/17 22:47 21:40 Abdomen W/ Con+CT.RAD.BRZ ordered. [facility] 03/18 01:15 00:56 03/18/2020 00:56 Discharged to Home. Impression: Diarrhea, unspecified; Urinary rr5 tract infection, site not specified. Condition is Stable. Forms are Medication Reconciliation Form, Thank You Letter, Antibiotic Education, Prescription Opioid Use. Follow up: Private Physician; When: 1 - 2 days; Reason: Worsening of condition, Recheck today's complaints, Continuance of care, Re-evaluation by your physician. Problem is new. Symptoms have improved. mh7
--- NOTE | 2020-03-18 00:57 | ER ---
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 Coronavirus screen: Client denies travel out of the [place] in the last 14 days. At this time, the client does not indicate any symptoms associated with coronavirus-19. Ebola Screen: Patient negative for fever greater than or equal to 101.5 degrees Fahrenheit, and additional compatible Ebola Virus Disease symptoms Patient denies exposure to infectious person. Patient denies travel to an Ebola-affected area in the 21 days before illness onset. No symptoms or risks identified at this time. Initial Sepsis Screen: Does the patient meet any 2 criteria? No. Patient's initial sepsis screen is negative. Does the patient have a suspected source of infection? No. Patient's initial sepsis screen is negative. Risk Assessment: Do you want to hurt yourself or someone else? Patient reports no desire to harm self or others. Onset of symptoms was March 17, 2020. Care prior to arrival: None. Activity prior to arrival: None. Mechanism of Injury: No Mechanism of Injury. Transition of care: patient was not received from another setting of care. 19:57 Method Of Arrival: Ambulatory sg Historical: - Allergies: 20:09 clindamycin HCl (bulk); sg 20:09 Darvocet-N 100; sg 20:09 PENICILLINS; sg 20:09 Sulfa (Sulfonamide Antibiotics); sg - PMHx: 20:09 Cancer; Depression; Fibromyalgia; GERD; insomnia; lymphedema; skipped heart beats; sg - PSHx: 20:09 Appendectomy; Hysterectomy; Mastectomy, Left; knee replacements; lumbar fusion; sg cervical fusion; - Immunization history:: Adult Immunizations up to date. - Social history:: Smoking status: Patient denies any tobacco usage or history of. Screenin:02 Abuse screen: Denies threats or abuse. Denies injuries from another. Nutritional rr5 screening: No deficits noted. Tuberculosis screening: No symptoms or risk factors identified. Fall Risk IV access (20 points). Gait- Weak (10 pts.). Mental Status- Oriented to own ability (0 pts). Total Arredondo Fall Scale indicates Low Risk Score (25-44 pts). Fall prevention measures have been instituted. Side Rails Up X 2 Placed close to Nursing Station Frequent Obs/Assesments occuring Family Present and informed to notify staff if they need to leave bedside As available Patient and Family Educated on Fall Prevention Program and strategies. Assessment: 20:00 General: Appears in no apparent distress. comfortable, Behavior is calm, cooperative, rr5 appropriate for age, Reports feeling ill for fatigue for. Pain: Denies pain. Neuro: Level of Consciousness is awake, alert, obeys commands, Oriented to person, place, time. Cardiovascular: Capillary refill < 3 seconds Patient's skin is warm and dry. Respiratory: Airway is patent Respiratory effort is even, unlabored, Respiratory pattern is regular, symmetrical. GI: Abdomen is round non-distended, Reports diarrhea. : No signs and/or symptoms were reported regarding the genitourinary system. EENT: No signs and/or symptoms were reported regarding the EENT system. Derm: Skin is intact, is healthy with good turgor, Skin temperature is warm. Musculoskeletal: Capillary refill < 3 seconds. 21:00 Reassessment: Patient appears in no apparent distress at this time. Patient is alert, rr5 oriented x 3, equal unlabored respirations, skin warm/dry/pink. awaiting for results. 22:00 Reassessment: Patient appears in no apparent distress at this time. Patient is alert, rr5 oriented x 3, equal unlabored respirations, skin warm/dry/pink. no complaints made. 23:00 Reassessment: Patient appears in no apparent distress at this time. Patient is alert, rr5 oriented x 3, equal unlabored respirations, skin warm/dry/pink. on CT scan. 03/18 00:00 Reassessment: Patient appears in no apparent distress at this time. Patient is alert, rr5 oriented x 3, equal unlabored respirations, skin warm/dry/pink. awaiting for CT result. 01:15 Reassessment: Patient appears in no apparent distress at this time. Patient is alert, rr5 oriented x 3, equal unlabored respirations, skin warm/dry/pink. PO challenge done no nausea or vomiting noted, discharge instruction given and explained without complaints made Patient states feeling better. Patient states symptoms have improved. Vital Signs: 03/17 20:00 BP 128 / 63; Pulse 61; Resp 16; Temp 98.4; Pulse Ox 99% ; rr5 21:00 BP 119 / 70; Pulse 59; Resp 17; Pulse Ox 98% ; rr5 22:00 BP 121 / 62; Pulse 60; Resp 16; Pulse Ox 98% ; rr5 22:40 BP 127 / 83; Pulse 62; Resp 16; Pulse Ox 99% ; rr5 03/18 00:00 BP 116 / 89; Pulse 64; Resp 17; Pulse Ox 98% ; rr5 01:00 BP 111 / 62; Pulse 69; Resp 17; Pulse Ox 99% ; rr5 ED Course: 03/17 19:52 Patient arrived in ED. bp1 19:57 Triage completed. sg 20:04 Clint Martines, RN is Primary Nurse. rr5 20:08 Arm band placed on. sg 20:11 Obdulio Albarado MD is Attending Physician. mh7 20:13 Clint Martines, RN is Primary Nurse. rr5 20:20 Patient has correct armband on for positive identification. Placed in gown. Bed in low rr5 position. Call light in reach. Side rails up X2. clinical research monitor on. Pulse ox on. NIBP on. 21:00 Inserted saline lock: 20 gauge in right hand, using aseptic technique. Blood collected. rr5 22:20 Inserted saline lock: 22 gauge in right ,using aseptic technique. shoulder. rr5 22:22 EKG done, by ED staff, reviewed by Obdulio Albarado MD. rr5 23:08 Abdomen In Process Unspecified. EDMS 03/18 01:10 No provider procedures requiring assistance completed. IV discontinued, intact, rr5 bleeding controlled, No redness/swelling at site. Pressure dressing applied. Administered Medications: 03/17 21:01 Drug: NS 0.9% 1000 ml Route: IV; Rate: 1000 ml; Site: right hand; rr5 22:00 Follow up: Response: No adverse reaction; IV Status: Completed infusion; IV Intake: rr5 1000ml 22:22 Drug: Potassium Effervescent Tablet 25 mEq Route: PO; rr5 23:20 Follow up: Response: No adverse reaction rr5 03/18 00:36 Drug: Macrobid 100 mg Route: PO; rr5 01:15 Follow up: Response: No adverse reaction rr5 Intake: 03/17 22:00 IV: 1000ml; Total: 1000ml. rr5 Outcome: 03/18 00:56 Discharge ordered by . mh7 01:10 Discharged to home via wheelchair, with family. rr5 01:10 Condition: stable 01:10 Discharge instructions given to patient, family, Instructed on discharge instructions, follow up and referral plans. medication usage, Demonstrated understanding of instructions, follow-up care, medications, Prescriptions given X 2. 01:15 Patient left the ED. rr5 Signatures: Dispatcher [employer] EDMS Armin Webber RN RN Clint Martines RN RN rr5 Mercedes Rodriguez Maurice, MD MD 7
[2020-03-18 04:40] VITALS: TEMP 98.4
[2020-03-18 04:50] VITALS: BP 127/83; O2SAT 99
--- NOTE | 2020-03-19 10:58 | RAD REPORT ---
EXAM DESCRIPTION: CT - Abdomen Pelvis W Contrast - 03/18/2020 4:02 am CLINICAL HISTORY: Diarrhea COMPARISON: 12/15/2018 TECHNIQUE: CT of the abdomen and pelvis performed following IV administration of iodinated contras t. FINDINGS: Lung Bases: Stable solid 120 cm pulmonary nodule in the left lower lobe. Bones: Generalized endplate spondylosis and disc height narrowing at this time. Mild superior endplat e deformity of T11 is stable. Abdomen: Liver: The liver has normal size and density. No intrahepatic biliary dilatation. Gallbladder: No calcified gallstones. Spleen, Pancreas, and Adrenal Glands: Stable cystic lesion in the spleen. Replacement of pancreas. Adrenal glands are unremarkable. Kidneys: No hydronephrosis or obstructing calculus. Small right hepatic cyst. Punctate nonobstruc ting right nephrolithiasis. Vasculature: Aortoiliac atherosclerosis. IVC is unremarkable. The portal vein is patent. The proxim al visceral and renal arteries are patent. Stomach: Small hiatal hernia. Other: No free intraperitoneal air. No free fluid or lymphadenopathy. Pelvis: Bladder: Urinary bladder is unremarkable. Bowel: No dilated loops of large or small bowel. Appendix: Not identified. Pelvis: Prior hysterectomy. IMPRESSION: 1. No acute inflammatory or obstructive process identified. 2. Punctate nonobstructing right nephrolithiasis. This exam was performed according to our departmental dose-optimization program, which includes autom ated exposure control, adjustment of the mA and/or kV according to patient size and/or use of iterati ve reconstruction technique. Electronically signed by: Driss Guevara 03/17/2020 11:28 PM TRANSFER STATION ATTENDANT Due to temporary technical issues with the PACS/Fluency reporting system, reports are being signed by the in house radiologist without review as a courtesy to ensure prompt reporting. The interpreting r adiologist is fully responsible for the content of the report.
== END 2020-03-18 01:15 | disposition home or self-care (01) ==
LOC: ER 19:00
DX: N39.0 Urinary tract infection, site not specified (principal); Z88.0 Allergy status to penicillin; Z88.2 Allergy status to sulfonamides; Z88.3 Allergy status to other anti-infective agents; Z88.5 Allergy status to narcotic agent
CPT/HCPCS: 93005; 85025; 80048; 36415; 83735; 80076; 81003; 83690; 74177; 96360; 99285; Q9967; J7030

== ENCOUNTER 2020-05-15 15:21 | Emergency (ER) | payer OTHER ==
--- OUTSIDE RECORDS SUMMARY | 2020-05-15 15:33 | XMS REPORT | Clinical Summary ---
:1940 Author Organization [facility] Address [address] [place] [address] Care Team Providers Name Role Phone Garrett [...] (Primary Dx) 10/18/2019 Travel 10/07/2019 Travel after 05/15/2019 Medical History Medical History Date Comments Hypertension [...] Health Maintenance Due Date Last Done Comments COVID-19 VACCINE (1 of 2) 1957 SHINGLES VACCINES (#1) 1991 65+ PNEUMOCOCCAL VACCINE (1 of 1 - PPSV23) 2006 INFLUENZA VACCINE 11/19/2019 Procedures Procedure Name Priority Date/Time Associated Diagnosis Comme nts CT ABD/PELVIC Routine 09/15/2019 10:37 AM Results for this EXTERNAL STUDY CDT procedure are in the results section. after 05/15/[address] Abd/Pelvic External Study (09/15/2019 10:37 AM CDT) Specimen Narrative Performed At This exam was not acquired at a Methodis t facility and has not been [facility] interpreted by a [facility] Provider. T he exam was imported into our imaging system. 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
--- OUTSIDE RECORDS SUMMARY | 2020-05-15 15:33 | XMS REPORT | Continuity of Care Document ---
:1940 Author Organization [facility] t Address [address] [place] [address] Care Team Providers Name Role Phone Farhat HOLT Primary Care Physician Hilton HOLT Attending Clinician Payers Payer Name Policy Type Policy Effective Date Expiration Date Sour ce Number AETNA MEDICAREAETNA [id number] 2013 [place] MED[place] HMO/PPO 00:00:00 Methodis t [id number] -PresentHMO Problems This patient has no known [...] to drug Sulfa Propensi Active Unknown 2020-0 Green (Sulfona ty to Reaction 6-30 Method i mide adverse 00:00: st Antibiot reaction 00 ics) s to drug Acetamin Propensi Active Unknown 2020-0 [place] ophen ty to Reaction 6-30 Methodi adverse 00:00: st reaction 00 s to drug Family History Family Member Diagnosis Comments Start Date Stop Date Source Natural father Diabetes [facility] Natural father Heart disease [facility] Natural father Hypertension [facility] Natural mother Asthma [facility] Social History Social Habit Start Date Stop Date Quantity Comments Source History of tobacco Current smoker [place] [facility] Std Dr[facility] Alcohol Binge Sex Assigned At [facility] ethodist Cigarettes smoked 2019-10-18 2019-10-18 [facility] current (pack per 00:00:00 00:00:00 day) - Reported Cigarette 2019-10-18 2019-10-18 [facility] pack-years 00:00:00 00:00:00 Tobacco use and 2019-10-18 2019-10-18 Never used [facility] ethodist exposure 00:00:00 00:00:00 Alcohol intake 2019-10-18 2019-10-18 Lifetime [facility]od[facility] 00:00:00 00:00:00 non-drinker (finding) History SDAR 2019-10-18 2019-10-18 1 [facility] Alcohol Frequency 00:00:00 00:00:00 Smoking Status Start Date Stop Date Source Former smoker 2019-10-18 00:00:00 2019-10-18 00:00:00 [facility] Medications This patient has no known medications. Vital Signs Vital Name Observation Time Observation Value Comments Source Body height 2019-10-18 11:34:00 160 cm [facility] Body weight 2019-10-18 11:34:00 95.255 kg [facility] BMI 2019-10-18 11:34:00 37.20 kg/m2 [facility] Procedures Procedure Date / Time Performed Performing Clinician [facility] e CT ABD/PELVIC EXTERNAL 2019-09-15 10:37:00 Renan Canela [facility] STUDY Plan of Care Planned Activity Planned Date Details Comments Source Future Scheduled 2019-11-19 INFLUENZA VACCINE Norbertto kim[facility] Test 00:00:00 [code = INFLUENZA VACCINE] Future Scheduled 2006 65+ PNEUMOCOCCAL [facility] Test 00:00:00 VACCINE (1 of 1 - PPSV23) [code = 65+ PNEUMOCOCCAL VACCINE (1 of 1 - PPSV23)] Future Scheduled 1991 SHINGLES VACCINES (#1) [facility] Test 00:00:00 [code = SHINGLES VACCINES (#1)] Future Scheduled 1957 COVID-19 VACCINE (1 of [place] [facility] 00:00:00 2) [code = COVID-19 VACCINE (1 of 2)] Encounters Start End Encounter Admission Attending Care Care Encounter Source Date/Time Date/Time Type Type Clinicians Facility Department ID 2019-10-18 2019-10-18 Outpatient [facility] [id number] 00:00:00 00:00:00 RENAN [address] 2019-10-18 2019-10-18 Outpatient [facility] [id number] [facility] 00:00:00 00:00:00 RENAN [address] Results Test Description Test Time Test Comments Results Result [facility] e Comments CT Abd/Pelvic 2019-10-18 This exam was not [place] External Study 12:24:47 acquired [address] a [facility] facility and has not been interpreted by a Worship Provider. The exam was imported into our imaging system.
--- NOTE | 2020-05-15 16:44 | RAD REPORT ---
EXAM DESCRIPTION: RAD - Knee Right 3 View - 05/15/2020 4:33 pm CLINICAL HISTORY: Right knee pain status post injury FINDINGS: No fracture or dislocation is seen. Right knee prosthesis is in good position
--- NOTE | 2020-05-15 16:53 | RAD REPORT ---
EXAM DESCRIPTION: CT - Head C Spine Mpr Wo Con - 05/15/2020 4:39 pm CLINICAL HISTORY: Head and neck injury status post fall. Head and neck pain COMPARISON: January 2020 TECHNIQUE: Computed axial tomography of the head and cervical spine was obtained. Sagittal and coronal reconstruction was performed. All CT scans are performed using dose optimization technique as appropriate and may include automated exposure control or mA/KV adjustment according to patient size. FINDINGS: A right frontal scalp hematoma An intracranial bleed is not seen. The ventricles are normal in caliber. An extra-axial fluid collect ion is not noted.Fluid within the visualized sinuses and mastoids is not seen A cervical fracture is not visualized. No dislocation is noted. Postsurgical changes involve the cerv ical spine. Mild posterior subluxation C4 on C5 without significant change .Spondylosis IMPRESSION: No acute intracranial abnormality is seen. A cervical fracture is not visualized. If the patient continues to have symptoms to suggest intracra nial /spinal cord pathology then MRI would be recommended
--- NOTE | 2020-05-15 17:40 | EDPHYS ---
Physician Documentation [facility] Name: Agnes Calabrese Age: 80 yrs Sex: Female : 1940 Arrival Date: 05/15/2020 Time: 15:22 Bed 2 Private MD: ED Physician Rodriguez Berry HPI: 05/15 17:30 This 80 yrs old Female presents to ER via Wheelchair with complaints of Fall cp Injury. 17:30 Details of fall: The patient fell from an upright position, while walking. cp 17:30 Onset: The symptoms/episode began/occurred today. Associated injuries: The patient cp sustained right knee, ecchymosis, painful injury. Severity of symptoms: in the emergency department the symptoms are unchanged, despite home interventions. Patient reports she did hit her head but no LOC. Historical: - Allergies: 16:03 clindamycin HCl (bulk); ss 16:03 Darvocet-N 100; ss 16:03 PENICILLINS; ss 16:03 Sulfa (Sulfonamide Antibiotics); ss - PMHx: 16:03 Cancer; Fibromyalgia; Depression; GERD; insomnia; lymphedema; skipped heart beats; ss - PSHx: 16:03 Appendectomy; Hysterectomy; Mastectomy, Left; knee replacements; lumbar fusion; ss cervical fusion; - Immunization history:: Adult Immunizations up to date. - Social history:: Smoking status: Patient denies any tobacco usage or history of. ROS: 17:32 Constitutional: Negative for body aches, chills, fever, poor PO intake. cp 17:32 Neck: Negative for pain with movement, pain at rest. 17:32 Cardiovascular: Negative for chest pain. 17:32 Respiratory: Negative for cough, shortness of breath, wheezing. 17:32 Back: Negative for pain at rest, pain with movement. 17:32 MS/extremity: Positive for contusion, ecchymosis, pain, swelling, tenderness, of the right knee, Negative for decreased range of motion, deformity. 17:32 Neuro: Negative for altered mental status, headache, loss of consciousness, syncope, weakness. 17:32 All other systems are negative. Exam: 17:35 Head/Face: Normocephalic, atraumatic. cp 17:35 Constitutional: The patient appears in no acute distress, alert, awake, non-toxic, well developed, well nourished, obese. 17:35 Eyes: Periorbital structures: appear normal, Conjunctiva: normal, no exudate, no injection, Sclera: no appreciated abnormality, Lids and lashes: appear normal, bilaterally. 17:35 ENT: External ear(s): are unremarkable, Nose: is normal, Posterior pharynx: Airway: no evidence of obstruction, patent. 17:35 Neck: C-spine: vertebral tenderness, is not appreciated, crepitus, is not appreciated, ROM/movement: is normal, is supple, without pain, no range of motions limitations. 17:35 Chest/axilla: Inspection: normal. 17:35 Cardiovascular: Rate: normal, Rhythm: regular. 17:35 Respiratory: the patient does not display signs of respiratory distress, Respirations: normal, no use of accessory muscles, no retractions, labored breathing, is not present. 17:35 Abdomen/GI: Inspection: abdomen appears normal, Palpation: abdomen is soft and non-tender, in all quadrants. 17:35 Back: pain, is absent, ROM is normal. 17:35 Musculoskeletal/extremity: Extremities: grossly normal except: noted in the anterior aspect right knee: ecchymosis, pain, swelling, tenderness, There is no evidence of decreased ROM, deformity, Perfusion: the extremity is normally perfused throughout, Sensation intact. 17:35 Neuro: Orientation: to person, place \T\ time. Mentation: is normal, Motor: moves all fours, strength is normal. Vital Signs: 15:58 BP 136 / 74; Pulse 80; Resp 16; Temp 97.4(TE); Pulse Ox 98% on R/A; Weight 92.08 kg; ss Height 5 ft. 3 in. (160.02 cm); Pain 8/10; 17:54 BP 150 / 75; Pulse 65; Resp 17; Pulse Ox 98% on R/A; tw2 15:58 Body Mass Index 35.96 (92.08 kg, 160.02 cm) ss MDM: 17:22 Patient medically screened. mady 17:30 Differential diagnosis: closed head injury, contusion, fracture, multiple trauma. cp 17:39 Data reviewed: vital signs, nurses notes, radiologic studies, plain films. cp 17:39 Test interpretation: by ED physician or midlevel provider: plain radiologic studies. cp Counseling: I had a detailed discussion with the patient and/or guardian regarding: the historical points, exam findings, and any diagnostic results supporting the discharge/admit diagnosis, radiology results, to return to the emergency department if symptoms worsen or persist or if there are any questions or concerns that arise at home. Response to treatment: the patient's symptoms have mildly improved after treatment, and as a result, I will discharge patient. ED course: VSS. Radiology studies negative for fracture. Will discharge to home for continued monitoring. 05/15 16:04 Order name: CT Head C Spine 05/15 16:04 Order name: XRAY Knee RIGHT 3 view 05/15 17:31 Order name: Rocky wrap-joint; Complete Time: 17:33 cp Administered Medications: 17:39 Drug: Ibuprofen 800 mg Route: PO; tw2 18:09 Follow up: Response: No adverse reaction tw 17:39 Drug: traMADol 50 mg {Note: rass 0.} Route: PO; tw2 18:09 Follow up: Response: No adverse reaction tw2 Disposition: 18:00 Chart complete. cp 05/16 11:09 Co-signature as Attending Physician, Rodriguez Berry MD I agree with the assessment and mady plan of care. Disposition: 05/15/20 17:39 Discharged to Home. Impression: Contusion of right knee - from fall, Fall on same level from slipping, tripping and stumbling. - Condition is Stable. - Discharge Instructions: Contusion, Knee Pain. - Prescriptions for Mobic 7.5 mg Oral Tablet - take 1 tablet by ORAL route once daily take with food; 20 tablet. Tramadol 50 mg Oral Tablet - take 1 tablet by ORAL route every 8 hours as needed; 12 tablet. - Medication Reconciliation Form, Thank You Letter, Antibiotic Education, Prescription Opioid Use form. - Follow up: Private Physician; When: 2 - 3 days; Reason: Recheck today's complaints. - Problem is new. - Symptoms have improved. Signatures: Dispatcher [employer] Rodriguez Chong MD MD cha Smirch, Shelby RN RN Rodriguez Painter PA PA cp Wise, Tara RN RN tw2 Corrections: (The following items were deleted from the chart) 05/15 18:09 17:39 05/15/2020 17:39 Discharged to Home. Impression: Contusion of right knee - from tw2 fall; Fall on same level from slipping, tripping and stumbling. Condition is Stable. Forms are Medication Reconciliation Form, Thank You Letter, Antibiotic Education, Prescription Opioid Use. Follow up: Private Physician; When: 2 - 3 days; Reason: Recheck today's complaints. Problem is new. Symptoms have improved. cp
--- NOTE | 2020-05-15 17:40 | ER ---
Nurse's Notes [facility] Name: Agnes Calabrese Age: 80 yrs Sex: Female : 1940 Arrival Date: 05/15/2020 Time: 15:22 Bed 2 Private MD: Diagnosis: Contusion of right knee-from fall;Fall on same level from slipping, tripping and stumbling Presentation: 05/15 15:58 Chief complaint: Patient states: "I was letting my dog out of the kennel and I lost my ss balance and fell." Pt c/o R knee pain and hematoma to R spiritism area. Denies LOC. Coronavirus screen: Client denies travel out of the [place] in the last 14 days. Ebola Screen: Patient denies exposure to infectious person. Patient denies travel to an Ebola-affected area in the 21 days before illness onset. Initial Sepsis Screen: Does the patient meet any 2 criteria? No. Patient's initial sepsis screen is negative. Does the patient have a suspected source of infection? No. Patient's initial sepsis screen is negative. Risk Assessment: Do you want to hurt yourself or someone else? Patient reports no desire to harm self or others. Note Injury occurred 1 hour ago. Onset of symptoms was May 15, 2020. 15:58 Method Of Arrival: Wheelchair ss 15:58 Acuity: WARREN 3 ss Historical: - Allergies: 16:03 clindamycin HCl (bulk); ss 16:03 Darvocet-N 100; ss 16:03 PENICILLINS; ss 16:03 Sulfa (Sulfonamide Antibiotics); ss - PMHx: 16:03 Cancer; Fibromyalgia; Depression; GERD; insomnia; lymphedema; skipped heart beats; ss - PSHx: 16:03 Appendectomy; Hysterectomy; Mastectomy, Left; knee replacements; lumbar fusion; ss cervical fusion; - Immunization history:: Adult Immunizations up to date. - Social history:: Smoking status: Patient denies any tobacco usage or history of. Screenin:54 Abuse screen: Denies threats or abuse. Nutritional screening: No deficits noted. tw2 Tuberculosis screening: No symptoms or risk factors identified. Fall Risk Secondary diagnosis (15 points) impaired mobility. Assessment: 17:22 General: Appears in no apparent distress. uncomfortable, obese, well groomed, Behavior tw2 is calm, cooperative, appropriate for age. Pain: Complains of pain in right leg. Neuro: Level of Consciousness is awake, alert, obeys commands, Oriented to person, place, situation. Cardiovascular: Patient's skin is warm and dry. Respiratory: Airway is patent Respiratory effort is even, unlabored, Respiratory pattern is regular, symmetrical. GI: No signs and/or symptoms were reported involving the gastrointestinal system. Musculoskeletal: Circulation, motion, and sensation intact. Range of motion: intact in all extremities. 17:58 Reassessment: Patient appears in no apparent distress at this time. No changes from tw2 previously documented assessment. Patient and/or family updated on plan of care and expected duration. Pain level reassessed. Patient is alert, oriented x 3, equal unlabored respirations, skin warm/dry/pink. 18:09 Reassessment: Patient appears in no apparent distress at this time. No changes from tw2 previously documented assessment. Patient and/or family updated on plan of care and expected duration. Pain level reassessed. Patient is alert, oriented x 3, equal unlabored respirations, skin warm/dry/pink. Vital Signs: 15:58 BP 136 / 74; Pulse 80; Resp 16; Temp 97.4(TE); Pulse Ox 98% on R/A; Weight 92.08 kg; ss Height 5 ft. 3 in. (160.02 cm); Pain 8/10; 17:54 BP 150 / 75; Pulse 65; Resp 17; Pulse Ox 98% on R/A; tw2 15:58 Body Mass Index 35.96 (92.08 kg, 160.02 cm) ED Course: 15:22 Patient arrived in ED. ag5 16:02 Triage completed. ss 16:03 Arm band placed on right wrist. ss 16:33 XRAY Knee RIGHT 3 view In Process Unspecified. EDMS 16:39 CT Head C Spine In Process Unspecified. EDMS 17:22 Rodriguez Berry MD is Attending Physician. [facility] 17:22 Bed in low position. Call light in reach. Side rails up X2. Pulse ox on. NIBP on. tw2 17:23 Rodriguez Garcia PA is PHCP. cp 17:23 Ciara Lucero, DANIEL is Primary Nurse. sv 17:58 No provider procedures requiring assistance completed. Patient did not have IV access tw2 during this emergency room visit. Administered Medications: 17:39 Drug: Ibuprofen 800 mg Route: PO; tw2 18:09 Follow up: Response: No adverse reaction tw2 17:39 Drug: traMADol 50 mg {Note: rass 0.} Route: PO; tw2 18:09 Follow up: Response: No adverse reaction tw2 Outcome: 17:39 Discharge ordered by . mary 18:08 Discharged to home via wheelchair. tw2 18:08 Condition: stable 18:08 Discharge instructions given to patient, Instructed on discharge instructions, follow up and referral plans. no drinking with medication, no driving heavy equipment, medication usage, safety practices, CMS checks after brooks wrapping Demonstrated understanding of instructions, follow-up care, medications, CMS checks after brooks wrapping Prescriptions given X 2. 18:09 Patient left the ED. tw2 Signatures: Dispatcher [employer] Ciara Benito, Rodriguez Vargas RN, MD MD cha Smirch, Shelby, RN RN ss Page, Corey, JOSÉ MIGUEL PA Nohemi Lara RN RN tw2 Dav Vasquez ag5
[2020-05-15] MEDS ORDERED: IBUPROFEN 400 MG TAB ONE (17:52)
[2020-05-15] MEDS ORDERED: TRAMADOL HCL 50 MG TAB ONE (17:53)
[2020-05-15 18:21] VITALS: TEMP 97.4; O2SAT 98
[2020-05-15 18:23] VITALS: BP 150/75
== END 2020-05-15 18:09 | disposition home or self-care (01) ==
LOC: ER 15:21
DX: S80.01XA Contusion of right knee, initial encounter (principal); W01.10XA Fall on same level from slipping, tripping and stumbling with subsequent striking against unspecified object, initial encounter; Y93.01 Activity, walking, marching and hiking; Y92.9 Unspecified place or not applicable; Z85.9 Personal history of malignant neoplasm, unspecified; Z88.0 Allergy status to penicillin; Z88.2 Allergy status to sulfonamides; Z88.3 Allergy status to other anti-infective agents; Z88.5 Allergy status to narcotic agent
CPT/HCPCS: 70450; 72125; 99284

== ENCOUNTER 2020-07-10 23:05 | Observation (INO) | payer OTHER ==
--- OUTSIDE RECORDS SUMMARY | 2020-07-10 23:09 | XMS REPORT | Continuity of Care Document ---
:1940 Author Organization [facility] t Address [address] [place] [address] Dr. Wilkes [address] [place] [id number] Care Team Providers Name Role Phone KEITA Attending Clinician Unavailable Problems This patient has no known problems. Allergies, Adverse Reactions, Alerts This patient has no known allergies or adverse reactions. Medications This patient has no known medications. Procedures This patient has no known procedures. Encounters Start End Encounter Admission Attending Care Care Encounter Source Date/Time Date/Time Type Type Clinicians Facility Department ID 2020-07-03 2020-07-03 Outpatient [facility] [id number] [place] 00:00:00 00:00:[address]E [address] 2019-10-18 2019-10-18 Outpatient [facility] [id number] [place] 00:00:00 00:00:[address] JAY[address] 2019-10-18 2019-10-18 Outpatient [facility] [id number] [place] 00:00:00 00:00:00 JAYE [address] Results This patient has no known results.
[2020-07-10] MEDS ORDERED: NA CHLORIDE 0.9% 1,000 ML ONE (23:45)
[2020-07-10] MEDS ORDERED: FOLIC ACID 5 MG/ML VIAL ONE (23:46)
[2020-07-11 00:32] LABS: Protime INR 0.9
[2020-07-11] MEDS ORDERED: CEFTRIAXONE/SWI 1gm 1 GM/10 ML SYR ONE (00:53)
--- NOTE | 2020-07-11 00:54 | EDPHYS ---
Physician Documentation [facility] Name: Agnes Calabrese Age: 80 yrs Sex: Female : 1940 Arrival Date: 07/10/2020 Time: 23:08 Bed 24 Private MD: ED Physician Rodriguez Berry HPI: 07/10 23:22 This 80 yrs old Female presents to ER via Unassigned with complaints of mady Altered Mental Status. 23:22 The patient presents with confusion, decreased mental status. Onset: The mady symptoms/episode began/occurred just prior to arrival, 1.25 hour(s) ago. Possible causes: MEDS, POLYPHARMACY. Associated signs and symptoms: The patient has no apparent associated signs or symptoms. Current symptoms: In the emergency department the patient's symptoms have improved, mildly. Patient's baseline: Neuro: alert and fully oriented. The patient has experienced similar episodes in the past, a few times. Historical: - Allergies: 23:09 clindamycin HCl (bulk); jb4 23:09 PENICILLINS; jb4 23:09 Darvocet-N 100; jb4 23:09 Sulfa (Sulfonamide Antibiotics); jb4 23:09 Strawberries; jb4 - PMHx: 23:09 Cancer; Depression; Fibromyalgia; GERD; insomnia; lymphedema; skipped heart beats; jb4 - PSHx: 23:09 Appendectomy; Mastectomy, Left; Hysterectomy; lumbar fusion; knee replacements; jb4 cervical fusion; - Immunization history:: Adult Immunizations up to date. - Social history:: Smoking status: Patient denies any tobacco usage or history of. - Family history:: not pertinent. ROS: 23:24 Constitutional: Negative for fever, chills, and weight loss, Eyes: Negative for injury, mady pain, redness, and discharge, ENT: Negative for injury, pain, and discharge, Neck: Negative for injury, pain, and swelling, Cardiovascular: Negative for chest pain, palpitations, and edema, Abdomen/GI: Negative for abdominal pain, nausea, vomiting, diarrhea, and constipation, Back: Negative for injury and pain, : Negative for injury, bleeding, discharge, and swelling, MS/Extremity: Negative for injury and deformity, Psych: Negative for depression, anxiety, suicide ideation, homicidal ideation, and hallucinations, Allergy/Immunology: Negative for hives, rash, and allergies, Endocrine: Negative for neck swelling, polydipsia, polyuria, polyphagia, and marked weight changes, Hematologic/Lymphatic: Negative for swollen nodes, abnormal bleeding, and unusual bruising. 23:24 Respiratory: Positive for cough, shortness of breath, at rest. 23:24 Neuro: Positive for altered mental status, weakness. 23:24 Psych: Negative for anxiety, insomnia. Exam: 23:24 Constitutional: This is a well developed, well nourished patient who is awake, alert, mady and in no acute distress. Head/Face: Normocephalic, atraumatic. Eyes: Pupils equal round and reactive to light, extra-ocular motions intact. Lids and lashes normal. Conjunctiva and sclera are non-icteric and not injected. Cornea within normal limits. Periorbital areas with no swelling, redness, or edema. ENT: Nares patent. No nasal discharge, no septal abnormalities noted. Tympanic membranes are normal and external auditory canals are clear. Oropharynx with no redness, swelling, or masses, exudates, or evidence of obstruction, uvula midline. Mucous membranes moist. Neck: Trachea midline, no thyromegaly or masses palpated, and no cervical lymphadenopathy. Supple, full range of motion without nuchal rigidity, or vertebral point tenderness. No Meningismus. Chest/axilla: Normal chest wall appearance and motion. Nontender with no deformity. No lesions are appreciated. Cardiovascular: Regular rate and rhythm with a normal S1 and S2. No gallops, murmurs, or rubs. Normal PMI, no JVD. No pulse deficits. Respiratory: Lungs have equal breath sounds bilaterally, clear to auscultation and percussion. No rales, rhonchi or wheezes noted. No increased work of breathing, no retractions or nasal flaring. Abdomen/GI: Soft, non-tender, with normal bowel sounds. No distension or tympany. No guarding or rebound. No evidence of tenderness throughout. Back: No spinal tenderness. No costovertebral tenderness. Full range of motion. Female : Normal external genitalia. Skin: Warm, dry with normal turgor. Normal color with no rashes, no lesions, and no evidence of cellulitis. MS/ Extremity: Pulses equal, no cyanosis. Neurovascular intact. Full, normal range of motion. Psych: Awake, alert, with orientation to person, place and time. Behavior, mood, and affect are within normal limits. 23:24 Neuro: Orientation: appropriate for stated age, no acute changes, Mentation: appropriate for stated age, no acute changes, per EMS, per family, Memory: appropriate for stated age, Cranial nerves: is grossly normal based on the patient's age, no acute changes, Cerebellar function: Motor: Gait: not tested. Deep tendon reflexes are 2+ (normal) in the bilateral brachioradialis, bicep, tricep and patellar and Achilles tendons, seizure activity, is not displayed by the patient. 23:30 ECG was reviewed by the Attending Physician. [facility] Vital Signs: 23:09 BP 108 / 66; Pulse 60; Resp 18; Temp 97.5(TE); Pulse Ox 95% on R/A; Pain 0/10; 4 07/11 00:00 BP 106 / 55; Pulse 58; Resp 16; Pulse Ox 95% on R/A; 4 01:00 BP 93 / 50; Pulse 57; Resp 18; Pulse Ox 94% on R/A; 4 02:00 BP 122 / 84; Pulse 56; Resp 19; Pulse Ox 98% on R/A; 4 03:00 BP 115 / 80; Pulse 55; Resp 17; Pulse Ox 94% on R/A; 4 04:00 BP 106 / 59; Pulse 96; Resp 16; Pulse Ox 58% on R/A; jb4 NIH Stroke Scale Scores: 07/10 23:15 NIHSS Score: 1 [facility] 23:24 NIHSS Score: 0 mady MDM: 23:16 Patient medically screened. mady 23:29 Differential Diagnosis altered mental status. Differential Diagnosis: CVA, electrolyte mady abnormality, hypoglycemia, intracranial bleed, pneumonia, sepsis, TIA, UTI. Data reviewed: vital signs, nurses notes, lab test result(s), EKG, radiologic studies, CT scan, plain films. Data interpreted: monitor car operator: rate is 85 beats/min, rhythm is regular, Pulse oximetry: on room air is 100 %. Test interpretation: by ED physician or midlevel provider: ECG, plain radiologic studies. Counseling: I had a detailed discussion with the patient and/or guardian regarding: the historical points, exam findings, and any diagnostic results supporting the discharge/admit diagnosis, lab results, radiology results, the need for further work-up and treatment in the hospital. 07/11 01:21 ED course: PT IS NIH 0, NON FOCAL , IMPROVED , AT BASELINE, NOT A TPA CANDIDATE. [facility] 07/10 23:20 Order name: Basic Metabolic Panel [facility] 07/10 23:20 Order name: CBC with Diff [facility] 07/10 23:20 Order name: LFT's [facility] 07/10 23:20 Order name: Magnesium [facility] 07/10 23:20 Order name: NT PRO-BNP [facility] 07/10 23:20 Order name: PT-INR; Complete Time: 01:21 [facility] 07/10 23:20 Order name: Troponin (emerg Dept Use Only); Complete Time: 03:01 [facility] 07/10 23:20 Order name: Blood Culture Adult (2) [facility] 07/10 23:20 Order name: Lactate; Complete Time: 03:01 [facility] 07/10 23:20 Order name: Lipase; Complete Time: 03:01 [facility] 07/10 23:21 Order name: Basic Metabolic Panel; Complete Time: 03:01 [facility] 07/10 23:21 Order name: CBC with Automated Diff; Complete Time: 03:01 [facility] 07/10 23:21 Order name: Liver (Hepatic) Function; Complete Time: 03:01 [facility] 07/10 23:21 Order name: Magnesium; Complete Time: 03:01 [facility] 07/10 23:20 Order name: XRAY Chest (1 view) [facility] 07/10 23:20 Order name: EKG; Complete Time: 23:22 [facility] 07/10 23:20 Order name: Cardiac monitoring; Complete Time: 23:59 [facility] 07/10 23:20 Order name: EKG - Nurse/Tech; Complete Time: 23:59 [facility] 07/10 23:20 Order name: IV Saline Lock; Complete Time: 23:59 [facility] 07/10 23:20 Order name: CT Stroke Brain w/o Contrast [facility] 07/10 23:21 Order name: NT PRO-BNP; Complete Time: 03:01 [facility] 07/10 23:24 Order name: COVID-19 : Document "Date of Symptom Onset" if Symptomatic. [facility] 07/11 00:52 Order name: Urine Dipstick--Ancillary (enter results); Complete Time: 03:01 mw2 07/11 03:42 Order name: SARS-COV-2 RT PCR [facility] 07/11 03:59 Order name: CONS Physician Consult [facility] 07/10 23:20 Order name: Labs collected and sent; Complete Time: 23:59 [facility] 07/10 23:20 Order name: O2 Per Protocol; Complete Time: 23:59 [facility] 07/10 23:20 Order name: O2 Sat Monitoring; Complete Time: 23:59 [facility] 07/10 23:20 Order name: Mauro; Complete Time: 02:50 mady EC/23 23:30 Rate is 58 beats/min. Rhythm is regular. QRS [place] is Normal. MO interval is normal. QRS mady interval is normal. QT interval is normal. No Q waves. T waves are Inverted in leads V1, V2, V3, V4. No ST changes noted. Clinical impression: NSR w/ Non-specific ST/T Changes. Interpreted by me. Reviewed by me. Administered Medications: 23:50 Drug: NS 0.9% 1000 ml Route: IV; Rate: 1 bolus; Site: right hand; [facility] 07/11 02:00 Follow up: Response: No adverse reaction; IV Status: Completed infusion; IV Intake: jb4 1000ml 07/10 23:50 Drug: foLIC Acid 1 mg Route: IVPB; Site: right hand; [facility] 23:51 Follow up: Response: No adverse reaction; IV Status: Completed infusion [facility] 07/11 01:35 Drug: Rocephin - (cefTRIAXone) 1 grams {Note: Administered IV push per pharmacy [facility] protocol.} Route: IVPB; Infused Over: 30 mins; Site: right hand; 01:40 Follow up: Response: No adverse reaction; IV Status: Completed infusion; IV Intake: [id number] 01:35 Drug: Aspirin Chewable Tablet 324 mg Route: PO; [facility] 02:00 Follow up: Response: No adverse reaction [facility] Disposition: 07/11/20 00:53 Hospitalization ordered by Melyssa Logan for Observation. Preliminary diagnosis are Altered mental status, unspecified, Weakness. - Bed requested for Telemetry/MedSurg (observation). - Status is Observation. jb4 - Condition is Fair. - Problem is new. - Symptoms have improved. NIH Stroke Scale - NIH Stroke Score Date: 07/10/2020 Time: 23:15 Total Score = 1 1a. Level of Consciousness (LOC) - 0(Alert) 1b. Level of Consciousness (LOC) (Year \\T\\ Age) - 0(Both) 1c. LOC Commands (Open \\T\\ Closes Eyes/Administrative Office Assistant) - 0(Both) 2. Best Gaze (Lateral Gaze Paresis) - 0(Normal) 3. Visual Field Loss - 0(No visual loss) 4. Facial Palsy - 0(Normal) 5a. Left Arm: Motor (10-second hold) - 0(No drift) 5b. Right Arm: Motor (10-second hold) - 0(No drift) 6a. Left Leg: Motor (5-second hold - always test supine) - 0(No drift) 6b. Right Leg: Motor (5-second hold - always test supine) - 0(No drift) 7. Limb Ataxia (finger/nose \\T\\ heel/aguirre - test with eyes open) - 0(Absent) 8. Sensory Loss (pinprick arms/legs/face) - 0(Normal) 9. Best Language: Aphasia (description/naming/reading) - 0(No aphasia) 10. Dysarthria (speech clarity - read or repeat words) - 1(Mild to Moderate) 11. Extinction and Inattention (visual/tactile/auditory/spatial/personal) - 0(No abnormality) Initials: jb4 NIH Stroke Scale - NIH Stroke Score Date: 07/10/2020 Time: 23:24 Total Score = 0 1a. Level of Consciousness (LOC) - 0(Alert) 1b. Level of Consciousness (LOC) (Year \\T\\ Age) - 0(Both) 1c. LOC Commands (Open \\T\\ Closes Eyes/Administrative Office Assistant) - 0(Both) 2. Best Gaze (Lateral Gaze Paresis) - 0(Normal) 3. Visual Field Loss - 0(No visual loss) 4. Facial Palsy - 0(Normal) 5a. Left Arm: Motor (10-second hold) - 0(No drift) 5b. Right Arm: Motor (10-second hold) - 0(No drift) 6a. Left Leg: Motor (5-second hold - always test supine) - 0(No drift) 6b. Right Leg: Motor (5-second hold - always test supine) - 0(No drift) 7. Limb Ataxia (finger/nose \\T\\ heel/aguirre - test with eyes open) - 0(Absent) 8. Sensory Loss (pinprick arms/legs/face) - 0(Normal) 9. Best Language: Aphasia (description/naming/reading) - 0(No aphasia) 10. Dysarthria (speech clarity - read or repeat words) - 0(Normal) 11. Extinction and Inattention (visual/tactile/auditory/spatial/personal) - 0(No abnormality) Initials: [facility] Signatures: Dispatcher [employer] EDNJ Rodriguez Berry MD MD cha Garcia, Cindy, RN RN Kendall Phan RN RN jb4 Corrections: (The following items were deleted from the chart) 02:19 07/10 23:25 CORONAVIRUS ordered. [facility] 07/11 04:14 00:53 Hospitalization Ordered by Melyssa Logan MD for Observation. Preliminary cg diagnosis is Altered mental status, unspecified; Weakness. Bed requested for Telemetry/MedSurg (observation). Status is Observation. Condition is Fair. Problem is new. Symptoms have improved. [facility] 05:08 04:14 07/11/2020 00:53 Hospitalization Ordered by Melyssa Logan MD for jb4 Observation. Preliminary diagnosis is Altered mental status, unspecified; Weakness. Bed requested for Telemetry/MedSurg (observation). Status is Observation. Condition is Fair. Problem is new. Symptoms have improved.
--- NOTE | 2020-07-11 00:54 | ER ---
Nurse's Notes [facility] Name: Agnes Calabrese Age: 80 yrs Sex: Female : 1940 Arrival Date: 07/10/2020 Time: 23:08 Bed 24 Private MD: Diagnosis: Altered mental status, unspecified;Weakness Presentation: 07/10 23:09 Chief complaint: EMS states: The nursing staff from [facility] called reporting the jb4 Pt was acting altered 45minutes after taking her medications. She was given 1mg of Narcan intranasaly. It seemed to help a little, we gave another 1mg of Narcan IV once a line was established. Pt received another 1mg of Narcan IV which seemed to help and the PT became more alert. 23:09 Coronavirus screen: Client denies travel out of the [place] in the last 14 days. At this jb4 time, the client does not indicate any symptoms associated with coronavirus-19. Ebola Screen: No symptoms or risks identified at this time. Initial Sepsis Screen: Does the patient meet any 2 criteria? Altered Mental Status. Yes Does the patient have a suspected source of infection? No. Patient's initial sepsis screen is negative. Risk Assessment: Do you want to hurt yourself or someone else? Patient reports no desire to harm self or others. Onset of symptoms was July 10, 2020. 23:09 Method Of Arrival: EMS: [facility] 23:09 Acuity: WARREN 2 jb4 Historical: - Allergies: 23:09 clindamycin HCl (bulk); jb4 23:09 PENICILLINS; jb4 23:09 Darvocet-N 100; jb4 23:09 Sulfa (Sulfonamide Antibiotics); jb4 23:09 Strawberries; jb4 - PMHx: 23:09 Cancer; Depression; Fibromyalgia; GERD; insomnia; lymphedema; skipped heart beats; jb4 - PSHx: 23:09 Appendectomy; Mastectomy, Left; Hysterectomy; lumbar fusion; knee replacements; jb4 cervical fusion; - Immunization history:: Adult Immunizations up to date. - Social history:: Smoking status: Patient denies any tobacco usage or history of. - Family history:: not pertinent. Screenin:09 Abuse screen: Denies threats or abuse. Nutritional screening: No deficits noted. jb4 Tuberculosis screening: No symptoms or risk factors identified. 23:09 Fall Risk IV access (20 points). Gait- Impaired (20 pts.). Mental Status- Oriented to jb4 own ability (0 pts). Total Arredondo Fall Scale indicates Low Risk Score (25-44 pts). Fall prevention measures have been instituted. Side Rails Up X 2 Placed close to Nursing Station Frequent Obs/Assesments occuring. Assessment: 23:09 General: Appears in no apparent distress. uncomfortable, Behavior is calm, cooperative, jb4 appropriate for age. Pain: Denies pain. Neuro: Level of Consciousness is awake, obeys commands, lethargic, Oriented to person, place, time, situation. Cardiovascular: Patient's skin is warm and dry. Respiratory: Airway is patent Respiratory effort is even, unlabored, Respiratory pattern is regular, symmetrical. GI: No signs and/or symptoms were reported involving the gastrointestinal system. : No signs and/or symptoms were reported regarding the genitourinary system. EENT: No signs and/or symptoms were reported regarding the EENT system. Derm: Skin is intact, Skin is pink, warm \T\ dry. Musculoskeletal: Circulation, motion, and sensation intact. Range of motion: intact in all extremities. 07/11 00:00 Reassessment: Patient appears in no apparent distress at this time. Patient and/or jb4 family updated on plan of care and expected duration. Pain level reassessed. Patient is alert, oriented x 3, equal unlabored respirations, skin warm/dry/pink. 01:00 Reassessment: Patient appears in no apparent distress at this time. Patient and/or jb4 family updated on plan of care and expected duration. Pain level reassessed. Patient is alert, oriented x 3, equal unlabored respirations, skin warm/dry/pink. 02:00 Reassessment: Patient appears in no apparent distress at this time. Patient and/or jb4 family updated on plan of care and expected duration. Pain level reassessed. Patient is alert, oriented x 3, equal unlabored respirations, skin warm/dry/pink. 03:00 Reassessment: Patient appears in no apparent distress at this time. Patient and/or jb4 family updated on plan of care and expected duration. Pain level reassessed. Patient is alert, oriented x 3, equal unlabored respirations, skin warm/dry/pink. 03:49 Reassessment: Patient appears in no apparent distress at this time. Patient and/or jb4 family updated on plan of care and expected duration. Pain level reassessed. Patient is alert, oriented x 3, equal unlabored respirations, skin warm/dry/pink. Hospitalist at the bedside. 05:06 Reassessment: Patient appears in no apparent distress at this time. Patient and/or jb4 family updated on plan of care and expected duration. Pain level reassessed. Patient is alert, oriented x 3, equal unlabored respirations, skin warm/dry/pink. Vital Signs: 07/10 23:09 BP 108 / 66; Pulse 60; Resp 18; Temp 97.5(TE); Pulse Ox 95% on R/A; Pain 0/10; jb4 07/11 00:00 BP 106 / 55; Pulse 58; Resp 16; Pulse Ox 95% on R/A; jb4 01:00 BP 93 / 50; Pulse 57; Resp 18; Pulse Ox 94% on R/A; jb4 02:00 BP 122 / 84; Pulse 56; Resp 19; Pulse Ox 98% on R/A; jb4 03:00 BP 115 / 80; Pulse 55; Resp 17; Pulse Ox 94% on R/A; jb4 04:00 BP 106 / 59; Pulse 96; Resp 16; Pulse Ox 58% on R/A; jb4 NIH Stroke Scale Scores: 07/10 23:15 NIHSS Score: 1 jb4 23:24 NIHSS Score: 0 [facility] ED Course: 23:08 Patient arrived in ED. cf2 23:09 Patient has correct armband on for positive identification. Placed in gown. Bed in low jb4 position. Call light in reach. Side rails up X 1. Pulse ox on. NIBP on. 23:15 Arm band placed on right wrist. jb4 23:16 Rodriguez Berry MD is Attending Physician. mady 23:20 Kendall Phan, DANIEL is Primary Nurse. jb4 23:26 CT Stroke Brain w/o Contrast In Process Unspecified. EDMS 23:46 XRAY Chest (1 view) In Process Unspecified. EDMS 07/11 00:19 Triage completed. jb4 00:51 Melyssa Logan MD is Hospitalizing Provider. mady 05:07 No provider procedures requiring assistance completed. Patient admitted, IV remains in jb4 place. Administered Medications: 07/10 23:50 Drug: NS 0.9% 1000 ml Route: IV; Rate: 1 bolus; Site: right hand; [facility] 07/11 02:00 Follow up: Response: No adverse reaction; IV Status: Completed infusion; IV Intake: jb4 1000ml 07/10 23:50 Drug: foLIC Acid 1 mg Route: IVPB; Site: right hand; jb 23:51 Follow up: Response: No adverse reaction; IV Status: Completed infusion jb4 07/11 01:35 Drug: Rocephin - (cefTRIAXone) 1 grams {Note: Administered IV push per pharmacy [facility] protocol.} Route: IVPB; Infused Over: 30 mins; Site: right hand; 01:40 Follow up: Response: No adverse reaction; IV Status: Completed infusion; IV Intake: 85mndg2 01:35 Drug: Aspirin Chewable Tablet 324 mg Route: PO; jb4 02:00 Follow up: Response: No adverse reaction jb4 Intake: 01:40 IV: 10ml; Total: 10ml. jb4 02:00 IV: 1000ml; Total: 1010ml. [facility] Outcome: 00:53 Decision to Hospitalize by Provider. mady 05:07 Admitted to Med/surg accompanied by sarah, via stretcher, room 228, with chart, Report jb called to DANIEL Rosado 05:07 Condition: stable 05:07 Discharge instructions given to patient, Instructed on the need for admit, Demonstrated understanding of instructions. 05:08 Patient left the ED. [facility] NIH Stroke Scale - NIH Stroke Score Date: 07/10/2020 Time: 23:15 Total Score = 1 1a. Level of Consciousness (LOC) - 0(Alert) 1b. Level of Consciousness (LOC) (Year \T\ Age) - 0(Both) 1c. LOC Commands (Open \T\ Closes Eyes/Net Programmer Analyst) - 0(Both) 2. Best Gaze (Lateral Gaze Paresis) - 0(Normal) 3. Visual Field Loss - 0(No visual loss) 4. Facial Palsy - 0(Normal) 5a. Left Arm: Motor (10-second hold) - 0(No drift) 5b. Right Arm: Motor (10-second hold) - 0(No drift) 6a. Left Leg: Motor (5-second hold - always test supine) - 0(No drift) 6b. Right Leg: Motor (5-second hold - always test supine) - 0(No drift) 7. Limb Ataxia (finger/nose \T\ heel/aguirre - test with eyes open) - 0(Absent) 8. Sensory Loss (pinprick arms/legs/face) - 0(Normal) 9. Best Language: Aphasia (description/naming/reading) - 0(No aphasia) 10. Dysarthria (speech clarity - read or repeat words) - 1(Mild to Moderate) 11. Extinction and Inattention (visual/tactile/auditory/spatial/personal) - 0(No abnormality) Initials: anya4 NIH Stroke Scale - NIH Stroke Score Date: 07/10/2020 Time: 23:24 Total Score = 0 1a. Level of Consciousness (LOC) - 0(Alert) 1b. Level of Consciousness (LOC) (Year \T\ Age) - 0(Both) 1c. LOC Commands (Open \T\ Closes Eyes/Net Programmer Analyst) - 0(Both) 2. Best Gaze (Lateral Gaze Paresis) - 0(Normal) 3. Visual Field Loss - 0(No visual loss) 4. Facial Palsy - 0(Normal) 5a. Left Arm: Motor (10-second hold) - 0(No drift) 5b. Right Arm: Motor (10-second hold) - 0(No drift) 6a. Left Leg: Motor (5-second hold - always test supine) - 0(No drift) 6b. Right Leg: Motor (5-second hold - always test supine) - 0(No drift) 7. Limb Ataxia (finger/nose \T\ heel/aguirre - test with eyes open) - 0(Absent) 8. Sensory Loss (pinprick arms/legs/face) - 0(Normal) 9. Best Language: Aphasia (description/naming/reading) - 0(No aphasia) 10. Dysarthria (speech clarity - read or repeat words) - 0(Normal) 11. Extinction and Inattention (visual/tactile/auditory/spatial/personal) - 0(No abnormality) Initials: mady Signatures: Dispatcher [employer] EDRodriguez Solis MD MD cha Bryson, James RN RN jb4 Kev Lara cf2 Corrections: (The following items were deleted from the chart) 00:19 07/10 23:05 Chief complaint: EMS states: The nursing staff from [facility]. jb4 called reporting the Pt was acting altered 45minutes after taking her medications. She was given 1mg of Narcan intranasaly. It seemed to help a little, we gave another 1mg of Narcan IV once a line was established. Pt received another 1mg of Narcan IV which seemed to help and the PT became more alert. [facility] 07/11 00:29 07/10 23:09 NIHSS Score: 1 [place] [id number] 07/11 02:59 07/10 23:09 General: Appears in no apparent distress. uncomfortable, Behavior [facility] is calm, cooperative, appropriate for age, [facility] 07/11 23:09 Neuro: Level of Consciousness is awake, alert, obeys commands, [facility] Oriented to person, place, time, situation, [facility] 07/11 02:59 07/10 23:09 GI: Reports nausea, [place] [id number] 07/11 02:07/10 23:09 Derm: Skin is pink, warm \T\ dry. Wound noted left knee [place] [id number] 07/11 04:01 00:30 BP 125 / 67; Pulse 116bpm; Resp 18bpm; Pulse Ox 96% RA; [place] [id number] 04:01 01:30 BP 122 / 81; Pulse 114bpm; Resp 19bpm; Pulse Ox 95% RA; [place] [id number] 04:01 02:45 BP 110 / 54; Pulse 112bpm; Resp 18bpm; Pulse Ox 96% RA; [place] [id number] 04:01 03:30 BP 116 / 59; Pulse 107bpm; Resp 17bpm; Pulse Ox 94% RA; [place] [id number]
[2020-07-11] MEDS ORDERED: ASPIRIN 81 MG CHEWABLE TABLET ONE (01:45)
[2020-07-11 02:16] LABS: Absolute Lymphocytes (CBC) 2.8 K/uL (0.7-4.9); Basophils % 0.2 % (0-1.3); Hematocrit 45.2 % (36.0-45.0); MPV 8.4 fL (7.6-11.3); RBC Red Blood Cell Count 4.64 M/uL (3.86-4.86)
[2020-07-11 02:23] LABS: Urine Blood NEGATIVE (NEG); Urine Glucose NEGATIVE (NEG); Urine Protein NEGATIVE (NEG); Urine pH 7.5 (5.0-7.0)
[2020-07-11 02:55] LABS: ALT/SGPT 21 U/L (12-78); AST/SGOT 23 U/L (15-37); Alkaline Phosphatase 77 U/L (45-117); BUN Blood Urea Nitrogen 18 mg/dL (7-18); Bicarbonate 30 mmol/L (21-32); Bilirubin Direct < 0.1 mg/dL (0-0.2); Bilirubin Total 0.2 mg/dL (0.2-1.0); Glucose Level 106 mg/dL (74-106); Lipase 115 U/L (73-393); Magnesium 2.1 mg/dL (1.8-2.4); NT PRO-BNP 144 pg/mL (<450); Potassium 3.5 mmol/L (3.5-5.1); Protein, Total 7.1 g/dL (6.4-8.2); Sodium Level 141 mmol/L (136-145); Troponin (Emerg Dept Use Only) < 0.02 ng/mL (0.0-0.045)
--- NOTE | 2020-07-11 04:11 | P.HP ---
Certification for Inpatient Patient admitted to: Observation With expected LOS: <2 Midnights Patient will require the following post-hospital care: None Practitioner: I am a practitioner with admitting privileges, knowledge of patient current condition, hospital course, and medical plan of care. Services: Services provided to patient in accordance with Admission requirements found in Title 42 Section 412.3 of the Code of Federal Regulations <Jameson Calabrese - Last Filed: 07/11/20 04:04> Patient History Date of Service: 07/11/20 Primary Care Provider: Dr. Torres Reason for admission: AMS, weakness History of Present Illness: Ms. Calabrese is a 80 yo female with HLD, Meniere's, lymphedema, GERD, fibromy algia, depression, h/o breast cancer here today for AMS and weakness. Tonight at her assisted living facility after receiving her regular medications, she started to feel 'long-term awake, long-term dreaming.' She said she felt foggy, couldn't move her hands, and her speech was slurred so she called for help. She reports weakness, but has no other complaints besides a few days of dry cough. She received narcan x3 at her facility with reported improvement. She now feels back to baseline, AOx4. She denies fever, night sweats, chills, chest pain, wheezing. Initial stroke scale of 1, now score of 0. CT head with no acute findings. - Past Medical/Surgical History Diabetic: No -: Lymphedema -: heart arrhythmia w/ PVCs -: L breast cancer -: PE -: Meniere's Disease -: Former smoker ([phone]) -: Reccurent UTIs -: Fibromyalgia -: GERD -: insomnia -: Depression -: s/p Left Mastectomy -: PATIENCE TKA -: Cervical fusion -: Lumbar fusion -: Appey -: Hysterectomy - Family History Father -: Diabetes Notes: heart attack. alcoholic - Social History Smoking Status: Former smoker Alcohol use: No CD- Drugs: No Caffeine use: No Place of Residence: Shelter <Jameson Calabrese - Last Filed: 07/11/20 04:04> Date of Service: 07/11/20 <Melyssa Logan - Last Filed: 07/17/20 04:41> Allergies clindamycin HCl [From Cleocin] Allergy (Severe, Verified 07/11/20 05:19) Hives/Rash clindamycin palmitate HCl [From Cleocin] Allergy (Severe, Verified 07/11/20 05:19) Hives/Rash clindamycin phosphate [From Cleocin] Allergy (Severe, Verified 07/11/20 05:19) Hives/Rash Penicillins Allergy (Severe, Verified 07/11/20 05:19) Hives/Rash Sulfa (Sulfonamide Antibiotics) [Sulfa(Sulfonamide Antibiotics)] Allergy (Severe, Verified 07/11/20 05:19) Hives/Rash acetaminophen [From Darvocet-N 100] Allergy (Verified 07/11/20 05:19) Unknown propoxyphene [From Darvocet-N 100] Allergy (Verified 07/11/20 05:19) Unknown strawberries Allergy (Severe, Uncoded 07/11/20 05:19) Hives/Rash Home Medications: Indapamide [Lozol*] 2.5 mg PO DAILY 08/05/11 Simvastatin 40 mg PO BEDTIME 08/05/11 Duloxetine [Cymbalta *] 60 mg PO BID 01/11/18 Memantine HCl 10 mg PO BID 01/11/18 Potassium Oral Tab [Klor-Con 10 mEq Tab*] 20 meq PO BID 01/11/18 Quetiapine [Seroquel*] 150 mg PO BEDTIME 01/11/18 Metoprolol Succinate [Toprol Xl*] 25 mg PO BEDTIME 12/16/18 Donepezil HCl 10 mg PO BEDTIME 05/25/19 Gabapentin 300 mg PO TID 05/25/19 Pantoprazole Sodium [Protonix] 1 tab PO DAILY 02/04/20 Thyroid,Pork [Radiology Technician Thyroid] 1 tab PO DAILY 02/04/20 Topiramate [Topamax] 200 mg PO BID 02/04/20 Zolpidem Tartrate [Ambien] 1 tab PO BEDTIME 02/04/20 ALPRAZolam [Xanax*] 1 tab PO BEDTIME 07/11/20 Cranberry Fruit Extract [Ellura] 1 cap PO DAILY 07/11/20 Hydrocodone 7.5/APAP 325 [[place] 7.5/325 mg*] 1 tab PO TID PRN 07/11/20 Magnesium Oxide 1 tab PO DAILY 07/11/20 Tizanidine HCl [Zanaflex] 1 tab PO BEDTIME 07/11/20 buPROPion HCl [Bupropion Xl] 1 tab PO DAILY 07/11/20 Review of Systems General: Weakness, As per HPI Eyes: Unremarkable ENT: Unremarkable Respiratory: Cough, As per HPI Cardiovascular: Unremarkable Gastrointestinal: Unremarkable Genitourinary: Unremarkable Musculoskeletal: Unremarkable Integumentary: Unremarkable Neurological: Weakness, Change in Speech, Confusion, As per HPI Lymphatics: Unremarkable <Jameson Calabrese - Last Filed: 07/11/20 04:04> Physical Examination - Vital Signs Temperature: 97.5 F Blood Pressure: 108/66 Pulse: 60 Respirations: 18 Pulse Ox (%): 95 - Physical Exam General: Alert, In no apparent distress, Oriented x3, Cooperative HEENT: Atraumatic, Normocephalic, PERRLA, Mucous membr. moist/pink, EOMI, Sclerae nonicteric Neck: Supple, 2+ carotid pulse no bruit, JVD not distended, No Thyromegaly, No LAD Respiratory: Clear to auscultation bilaterally, Normal air movement Cardiovascular: No edema, Normal pulses, Regular rate/rhythm, Normal S1 S2, No gallops, No rubs, No murmurs Capillary refill: <2 Seconds Gastrointestinal: Normal bowel sounds, Soft and benign, Non-distended, No ascites, No tenderness, No masses, No rebound, No guarding Musculoskeletal: No clubbing, No swelling, No contractures, No erythema, No tenderness, No warmth Integumentary: No rashes, No breakdown, No significant lesion, No tenderness/swelling, No erythema, No warmth, No cyanosis Neurological: Normal speech, Normal strength at 5/5 x4 extr, Normal tone, Sensation intact, Cranial nerves 3-12 intact, Normal affect Lymphatics: No axilla or inguinal lymphadenopathy - Studies Laboratory Data (last 24 hrs) 07/11/20 01:59: WBC 8.20, Hgb 14.7, Hct 45.2 H, Plt Count 219 07/11/20 01:59: Sodium 141, Potassium 3.5, BUN 18, Creatinine 0.97, Glucose 106, Magnesium 2.1, Total Bilirubin 0.2, AST 23, ALT 21, Alkaline Phosphatase 77, Lipase 115 07/10/20 23:50: PT 10.3, INR 0.90 <Jameson Calabrese - Last Filed: 07/11/20 04:04> - Studies Microbiology Data (last 24 hrs): 07/11/20 01:48 Blood - Blood Aerobic Blood Culture - Final No growth in 5 days. 07/11/20 01:48 Blood - Blood Anaerobic Blood Culture - Final 07/11/20 01:41 Blood - Blood Aerobic Blood Culture - Final No growth in 5 days. 07/11/20 01:41 Blood - Blood Anaerobic Blood Culture - Final <Melyssa Logan - Last Filed: 07/17/20 04:41> Assessment and Plan - Problems (Diagnosis) (1) Altered mental status Status: Acute Plan: Patient has returned to baseline. CT head with no acute findings. given ASA and folic acid. Improvement after narcan x 3, likely due to polypharmacy. patient should see PCP to further evaluate outpatient medications. Qualifiers: Altered mental status type: unspecified Qualified Code(s): R41.82 - Altered mental status, unspecified (2) GERD (gastroesophageal reflux disease) Status: Acute Plan: stable, continue with home medications Qualifiers: Esophagitis presence: esophagitis presence not specified Qualified Code(s): K21.9 - Gastro-esophageal reflux disease without esophagitis (3) Depression Status: Acute Plan: stable, continue with home medications Qualifiers: Depression Type: unspecified Qualified Code(s): F32.9 - Major depressive disorder, single episode, unspecified (4) Fibromyalgia Status: Chronic Plan: stable, continue with home medications (5) Hyperlipidemia Status: Chronic Plan: stable, continue with home medications Qualifiers: Hyperlipidemia type: unspecified Qualified Code(s): E78.5 - Hyperlipidemia, unspecified (6) General weakness Status: Chronic Plan: improved from initial admission. speech has improved. patient at baseline. continue to monitor. Discharge Plan: Shelter Plan to discharge in: 24 Hours - Advance Directives Does patient have a Living Will: No Does patient have a Durable POA for Healthcare: Yes - Code Status/Comfort Care Code Status Assessed: Yes (full code) Critical Care: No Time Spent Managing Pts Care (In Minutes): 70 <Jameson Calabrese - Last Filed: 07/11/20 04:04> Date of Service: 07/11/20 Patient will be admitted and cultures are pending. Patient is clinically doing much better. Patient is with daughter and wanting to go home. <Melyssa Logan - Last Filed: 07/17/20 04:41>
[2020-07-11] MEDS ORDERED: ONDANSETRON 4 MG/2 ML VIAL IV PRN (04:49)
[2020-07-11] MEDS ORDERED: ACETAMINOPHEN 500 MG TAB PO PRN (04:49)
[2020-07-11 06:35] VITALS: BMI 36.6
[2020-07-11] MEDS ORDERED: POTASSIUM CL SA 10 MEQ TAB PO ONE (07:00)
--- NOTE | 2020-07-11 07:03 | EKG ---
Test Date: 2020-07-10 Test Time: 23:24:52 Agricultural Education Professor: ROSANNA MEASUREMENT RESULTS: Intervals: Rate: 58 OR: 166 QRSD: 84 QT: 440 QTc: 431 [place]: P: 77 OR: 166 QRS: 78 T: 73 INTERPRETIVE STATEMENTS: Sinus bradycardia ST & T wave abnormality, consider anterior ischemia Abnormal ECG Compared to ECG 03/17/2020 22:09:48 Possible ischemia now present ST (T wave) deviation still present Electronically Signed On 07-11-20 07:02:17 CDT by Luis Reveles
--- NOTE | 2020-07-11 07:39 | RAD REPORT ---
EXAM DESCRIPTION: Ino Single View07/10/2020 11:46 pm CLINICAL HISTORY: Chest pain COMPARISON: 2019 FINDINGS: Borderline mild interstitial pulmonary edema. Heart is mildly enlarged
[2020-07-11 10:42] VITALS: O2SAT 97
--- NOTE | 2020-07-11 11:11 | RAD REPORT ---
EXAM DESCRIPTION: CT - Ct Stroke Brain Wo Cont - 07/11/2020 7:12 am ADDENDUM #1 THIS REPORT CONTAINS FINDINGS THAT MAY BE CRITICAL TO PATIENT CARE: The findings were verbally discu ssed via telephone conference with Rodriguez Berry MD on 07/10/2020 at 11:46 PM CDT. Electronically signed by: David Emmanuel MD 07/10/2020 11:46 PM CDT End of Addendum EXAM DESCRIPTION: Ct Stroke Brain Wo Cont CLINICAL HISTORY: 80 years Female Mental status change; Declining state TECHNIQUE: Axial noncontrast CT head with coronal and sagittal reformats. All CT scans at this facil ity use dose modulation, iterative reconstruction, and/or weight based dosing when appropriate to red uce radiation dose to as low as reasonably achievable. COMPARISON: 05/15/2020. FINDINGS: Brain: Parenchymal volume loss. Chronic small vessel disease. No obvious large acute ministerio torial infarction. No intracranial hemorrhage, midline shift, mass or mass effect. Ventricles: No hydrocephalus. Orbits: Unremarkable. Sinuses: Visualized portions are clear. Mastoid: Clear. Osseous: Unremarkable. Soft tissues: Unremarkable. IMPRESSION: No acute CT findings. Electronically signed by: David Emmanuel MD 07/10/2020 11:43 PM CDT Due to temporary technical issues with the PACS/Fluency reporting system, reports are being signed by the in house radiologist without review as a courtesy to ensure prompt reporting. The interpreting r adiologist is fully responsible for the content of the report.
[2020-07-11 14:00] VITALS: BP 98/54; TEMP 97.1
[2020-07-11 17:01] LABS: Urine Appearance CLEAR; Urine Bilirubin NEGATIVE (NEG); Urine Blood NEGATIVE (NEG); Urine Color YELLOW; Urine Glucose NEGATIVE (NEG); Urine Protein NEGATIVE (NEG); Urine Urobilinogen 0.2 mg/dL (0.2-1.0)
[2020-07-11 17:02] LABS: Urine Microscopic Reflex NO UMIC
--- NOTE | 2020-07-17 04:44 | P.DS ---
Discharge Date: 07/11/20 Primary Care Provider: Dr. Torres Disposition: ROUTINE DISCHARGE Discharge Condition: GOOD Reason for Admission: AMS, weakness Brief History of Present Illness: Ms. Calabrese is a 80 yo female with HLD, Meniere's, lymphedema, GERD, fibromyalgia, depression, h/o breast cancer here today for AMS and weakness. Tonight at her assisted living facility after receiving her regular medications, she started to feel 'intermediate awake, intermediate dreaming.' She said she felt foggy, couldn't move her hands, and her speech was slurred so she called for help. She reports weakness, but has no other complaints besides a few days of dry cough. She received narcan x3 at her facility with reported improvement. She now feels back to baseline, AOx4. She denies fever, night sweats, chills, chest pain, wheezing. Initial stroke scale of 1, now score of 0. CT head with no acute findings. Hospital Course: Patient had done well during hospital stay. At this time patient is clinically stable for discharge. Patient will call me in a few days to get results of culture results. Vital Signs/Physical Exam: Temp Pulse Resp BP Pulse Ox 97.1 F 65 18 98/54 L 93 07/11/20 12:00 07/11/20 12:00 07/11/20 12:00 07/11/20 12:00 07/11/20 12:00 General: Alert, In no apparent distress, Oriented x3 Laboratory Data at Discharge: WBC 8.20 K/uL (4.3-10.9) 07/11/20 01:59 Hgb 14.7 g/dL (12.0-15.0) 07/11/20 01:59 Hct 45.2 % (36.0-45.0) H 07/11/20 01:59 Plt Count 219 K/uL (152-406) 07/11/20 01:59 PT 10.3 SECONDS (9.5-12.5) 07/10/20 23:50 INR 0.90 07/10/20 23:50 Sodium 141 mmol/L (136-145) 07/11/20 01:59 Potassium 3.5 mmol/L (3.5-5.1) 07/11/20 01:59 BUN 18 mg/dL (7-18) 07/11/20 01:59 Creatinine 0.97 mg/dL (0.55-1.3) 07/11/20 01:59 Glucose 106 mg/dL (74-106) 07/11/20 01:59 Magnesium 2.1 mg/dL (1.8-2.4) 07/11/20 01:59 Total Bilirubin 0.2 mg/dL (0.2-1.0) 07/11/20 01:59 AST 23 U/L (15-37) 07/11/20 01:59 ALT 21 U/L (12-78) 07/11/20 01:59 Alkaline Phosphatase 77 U/L (45-117) 07/11/20 01:59 Lipase 115 U/L (73-393) 07/11/20 01:59 Home Medications: Indapamide [Lozol*] 2.5 mg PO DAILY 08/05/11 Simvastatin 40 mg PO BEDTIME 08/05/11 Duloxetine [Cymbalta *] 60 mg PO BID 01/11/18 Memantine HCl 10 mg PO BID 01/11/18 Potassium Oral Tab [Klor-Con 10 mEq Tab*] 20 meq PO BID 01/11/18 Quetiapine [Seroquel*] 150 mg PO BEDTIME 01/11/18 Metoprolol Succinate [Toprol Xl*] 25 mg PO BEDTIME 12/16/18 Donepezil HCl 10 mg PO BEDTIME 05/25/19 Gabapentin 300 mg PO TID 05/25/19 Pantoprazole Sodium [Protonix] 1 tab PO DAILY 02/04/20 Thyroid,Pork [[employer] Thyroid] 1 tab PO DAILY 02/04/20 Topiramate [Topamax] 200 mg PO BID 02/04/20 Zolpidem Tartrate [Ambien] 1 tab PO BEDTIME 02/04/20 ALPRAZolam [Xanax*] 1 tab PO BEDTIME 07/11/20 Cranberry Fruit Extract [Ellura] 1 cap PO DAILY 07/11/20 Hydrocodone 7.5/APAP 325 [Snyder 7.5/325 mg*] 1 tab PO TID PRN 07/11/20 Magnesium Oxide 1 tab PO DAILY 07/11/20 Tizanidine HCl [Zanaflex] 1 tab PO BEDTIME 07/11/20 buPROPion HCl [Bupropion Xl] 1 tab PO DAILY 07/11/20 Physician Discharge Instructions: OK TO DC IV AND DC HOME FOLLOW-UP WITH PRIMARY CARE PROVIDER IN 1-2 WEEKS FOLLOW-UP WITH Neurology IN 1-2 WEEKS RETURN TO THE ER IF symptoms worsen CALL or TEXT DR. SU AT [phone] IF ANY QUESTIONS REGARDING HOSPITAL STAY. PLEASE CALL THE FLOOR AT [phone] IF ANY MEDICATION OR NURSING QUESTIONS. Arrange for outpatient sleep study Diet: AHA Activity: Fall precautions Followup: Jerry Torres MD [Primary Care Provider] - Chin Pat MD [ACTIVE - CAN ADMIT] - Time spent managing pt's care (in minutes): 35
== END 2020-07-11 17:28 | disposition home or self-care (01) ==
LOC: ER 23:05 → ERHOLD 07-11 03:58 → 2ND 07-11 04:46
PROVIDERS: ADMIT Hospitalist; ATTEND Hospitalist
DX: R41.82 Altered mental status, unspecified (principal); R53.1 Weakness; M79.7 Fibromyalgia; K21.9 Gastro-esophageal reflux disease without esophagitis; E78.5 Hyperlipidemia, unspecified; G47.00 Insomnia, unspecified; F32.9 Major depressive disorder, single episode, unspecified; I49.3 Ventricular premature depolarization; H81.09 Meniere's disease, unspecified ear; I89.0 Lymphedema, not elsewhere classified; Z20.822 Contact with and (suspected) exposure to COVID-19; Z88.0 Allergy status to penicillin; Z88.2 Allergy status to sulfonamides; Z88.3 Allergy status to other anti-infective agents; Z88.6 Allergy status to analgesic agent; Z87.891 Personal history of nicotine dependence; Z87.440 Personal history of urinary (tract) infections; Z85.3 Personal history of malignant neoplasm of breast; Z90.12 Acquired absence of left breast and nipple; Z96.653 Presence of artificial knee joint, bilateral; Z90.710 Acquired absence of both cervix and uterus; Z83.3 Family history of diabetes mellitus; Z82.49 Family history of ischemic heart disease and other diseases of the circulatory system
CPT/HCPCS: 93005; 87040 ×2; 85025; 80048; 36415; 83735; 85610; 80076; 83605; 81003 ×2; 84484; 83690; 83880; 70450; 71045; U0003; J0696; J7030; 96361; 96374; 96375; 99285; G0378

== ENCOUNTER 2020-08-29 09:19 | Emergency (ER) | payer OTHER ==
--- OUTSIDE RECORDS SUMMARY | 2020-08-29 09:22 | XMS REPORT | Continuity of Care Document ---
:1940 Author Organization [facility] t Address [address] [place] [address] Care Team Providers Name Role Phone Farhat HOLT Primary Care Physician Hilton HOLT Attending Clinician Payers Payer Name Policy Type Policy Effective Date Expiration Date Sour ce Number AETNA MEDICAREAETNA [id number] 2013 [place] MED[place] HMO/PPO 00:00:00 [facility] [id number] -PresentHMO Problems This patient has no known problems. Allergies, Adverse Reactions, Alerts Allergy Allergy Status Severity Reaction(s) Onset Inactive Treating Comm ents Source Name Type Date Date Clinician Propoxyp Propensi Active Unknown 2020-0 [place] [...] 00:00: st reaction 00 s to drug Clindamy Propensi Active Unknown 2020-0 [place] to Reaction 6-30 [facility] Phosphat adverse 00:00: st e reaction 00 s to drug Family History Family Member Diagnosis Comments Start Date Stop Date Source Natural father Diabetes [facility] Natural father Heart disease [facility] Natural father Hypertension [facility] Natural mother Asthma [facility] Social History Social Habit Start Date Stop Date Quantity Comments Source History of tobacco Current smoker [place] [facility] use History SDOH [place] [facility] Alcohol Std Drinks History SDOH [place] [facility] Alcohol Binge Cigarettes smoked 2019-10-18 2019-10-18 [facility] current (pack per 00:00:00 00:00:00 day) - Reported Cigarette 2019-10-18 2019-10-18 [facility] pack-years 00:00:00 00:00:00 Tobacco use and 2019-10-18 2019-10-18 Never used [facility] [place] [facility] exposure 00:00:00 00:00:00 Alcohol intake 2019-10-18 2019-10-18 Lifetime [facility] 00:00:00 00:00:00 non-drinker (finding) History SDOH 2019-10-18 2019-10-18 1 [place] [facility] Alcohol Frequency 00:00:00 00:00:00 Sex Ass[birth year] At [birth year] [facility] 00:00:00 00:00:00 Smoking Status Start Date Stop Date Source Former smoker 2019-10-18 00:00:00 2019-10-18 00:00:00 [facility] Medications This patient has no known medications. Vital Signs Vital Name Observation Time Observation Value Comments Source Body height 2019-10-18 11:34:00 160 cm [facility] Body weight 2019-10-18 11:34:00 95.255 kg [facility] BMI 2019-10-18 11:34:00 37.20 kg/m2 [facility] Procedures Procedure Date / Time Performed Performing Clinician Sour e [place] EXTERNAL STUDY EXAM 2019-12-09 11:20:[address] ABD/PELVIC EXTERNAL 2019-09-15 10:37:00 Renan Keita STUDY Plan of Care Planned Activity Planned Date Details Comments Source Future Scheduled 2020-11-18 INFLUENZA VACCINE [place] [facility] 00:00:00 [code = INFLUENZA VACCINE] Future Scheduled 2006 65+ PNEUMOCOCCAL [place] [facility] Test 00:00:00 VACCINE (1 of 1 - PPSV23) [code = 65+ PNEUMOCOCCAL VACCINE (1 of 1 - PPSV23)] Future Scheduled 1991 SHINGLES VACCINES (#1) [facility] Test 00:00:00 [code = SHINGLES VACCINES (#1)] Future Scheduled 1959 Hepatitis C screening [facility] Test 00:00:00 (procedure) [code = 038590816] Encounters Start End Encounter Admission Attending Care Care Encounter Source Date/Time Date/Time Type Type Clinicians Facility Department ID 2020-08-27 2020-08-27 Outpatient KEITA, [facility] [id number] [place] 00:00:00 00:00:00 RENAN [address] 2020-07-03 2020-07-03 Outpatient KEITA, [facility] [id number] [place] 00:00:00 00:00:00 RENAN [address] 2019-10-18 2019-10-18 Outpatient KEITA, [facility] [id number] [place] 00:00:00 00:00:00 RENAN [address] 2019-10-18 2019-10-18 Outpatient KEITA, [facility] [id number] [place] 00:00:00 00:00:00 RENAN [address] Results Test Description Test Time Test Comments Results Result [facility] e Comments [place] External Study 2020-08-27 This exam was not [facility] Ex[facility] 08:55:15 acquired at a [facility] and has not been interpreted by a [facility] Provider. The exam was imported into our imaging system. CT Abd/Pelvic 2019-10-18 This exam was not [facility] External Study 12:24:47 acquired at a [facility] facility and has not been interpreted by a [facility] Provider. The exam was imported into our imaging system.
[2020-08-29] MEDS ORDERED: NA CHLORIDE 0.9% 1,000 ML ONE (10:54)
[2020-08-29 11:12] LABS: Absolute Lymphocytes (CBC) 1.4 K/uL (0.7-4.9); Basophils % 1.3 % (0-1.3); Hematocrit 44.8 % (36.0-45.0); Lymphocytes % 25.1 % (15.3-44.8); MPV 8.6 fL (7.6-11.3); RBC Red Blood Cell Count 4.63 M/uL (3.86-4.86)
--- NOTE | 2020-08-29 11:52 | RAD REPORT ---
EXAM DESCRIPTION: CT - Head C Spine Cap Wo Con - 08/29/2020 11:19 am CLINICAL HISTORY: Trauma, head and neck injury. Chest, abdomen and pelvis pain. PAIN COMPARISON: Head C Spine Cap Wo Con dated 06/29/2019; Knee Right 3 View dated 05/15/2020; Head C Spine Mpr Wo Con dated 05/15/2020; Ct Stroke Brain Wo Cont dated 07/10/2020; Abdomen Pelvis W Contrast shama ed 03/17/2020; Ct Skull/Thigh dated 03/08/2020 TECHNIQUE: CT head without contrast. CT cervical spine without contrast with coronal and sagittal reformatted images. CT chest, abdomen and pelvis without contrast with coronal and sagittal reformatted images of the spi ne. All CT scans are performed using dose optimization technique as appropriate and may include automated exposure control or mA/KV adjustment according to patient size. FINDINGS: CT HEAD WITHOUT CONTRAST: No intracranial hemorrhage, hydrocephalus or extra-axial fluid collection. No areas of brain edema o r midline shift. The paranasal sinuses and mastoids are clear. The calvarium is intact. CT CERVICAL SPINE WITHOUT CONTRAST: No fracture or subluxation. Postsurgical hardware is present spanning C4-7. The prevertebral soft tis sues are normal in thickness. CT CHEST, ABDOMEN, PELVIS WITHOUT CONTRAST: NOTE: Lack of contrast is a significant limitation in the assessment of trauma related findings. Spec ifically, solid organ, vascular and bowel evaluation is significantly limited. There is a mild opacity in the medial right base which may be an area of atelectasis or infiltrate/ a spiration. Noncalcified pulmonary nodule is seen in the medial left base measuring 11 mm.This nodule has undergone prior workup with PET-CT on 03/08/2020.No pneumothorax or pericardial/pleural fluid. No displaced rib fracture. No evidence of intra-abdominal visceral injury, free fluid or free air is seen within the above detai led limitations. No concerning pelvic findings. Moderate lumbar degenerative changes. T11 vertebral body demonstrates slight central wedging, mildly progressive since 06/29/[address] study. No acute fractures are evident. IMPRESSION: Negative for acute traumatic findings within the above detailed limitations.
--- NOTE | 2020-08-29 12:03 | RAD REPORT ---
EXAM DESCRIPTION: RAD - Chest Single View - 08/29/2020 11:36 am CLINICAL HISTORY: BLUNT CHEST TRAUMA Chest pain. COMPARISON: Chest Single View dated 07/10/2020; Chest Single View dated 02/12/2020; Chest Single View dated 02/03/2020; Chest Single View dated 12/15/2018 FINDINGS: Portable technique limits examination quality. The lungs are grossly clear. The heart is normal in size. No displaced fractures.Cervical spine hardw are plate is noted. Right humeral prosthesis. IMPRESSION: No acute intrathoracic process suspected.
--- NOTE | 2020-08-29 12:14 | RAD REPORT ---
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 No fracture, dislocation or AVN pattern o bserved.
--- NOTE | 2020-08-29 12:15 | RAD REPORT ---
EXAM DESCRIPTION: RAD - Hip Right 2 View - 08/29/2020 11:38 am CLINICAL HISTORY: PAIN COMPARISON: No comparisons FINDINGS: Mild osteoarthritic changes are present involving the right hip. No fracture, dislocation or AVN pattern observed.
--- NOTE | 2020-08-29 12:17 | RAD REPORT ---
EXAM DESCRIPTION: RAD - Femur Right - 08/29/2020 11:37 am CLINICAL HISTORY: PAIN COMPARISON: No comparisons FINDINGS: Right total knee arthroplasty is present. No hardware loosening seen. No acute fracture ev ident.
[2020-08-29 12:31] LABS: Protime INR 0.99
[2020-08-29 12:42] LABS: ALT/SGPT 18 U/L (12-78); AST/SGOT 18 U/L (15-37); Albumin 2.8 g/dL (3.4-5.0); Alkaline Phosphatase 89 U/L (45-117); BUN Blood Urea Nitrogen 21 mg/dL (7-18); Bicarbonate 29 mmol/L (21-32); Bilirubin Direct 0.1 mg/dL (0-0.2); Bilirubin Total 0.4 mg/dL (0.2-1.0); Glucose Level 130 mg/dL (74-106); Lipase 91 U/L (73-393); NT PRO-BNP 247 pg/mL (<450); Potassium 3.5 mmol/L (3.5-5.1); Protein, Total 6.4 g/dL (6.4-8.2); Sodium Level 140 mmol/L (136-145); Troponin (Emerg Dept Use Only) < 0.02 ng/mL (0.0-0.045)
--- NOTE | 2020-08-29 13:12 | ER ---
Nurse's Notes [facility] Name: Agnes Calabrese Age: 80 yrs Sex: Female : 1940 Arrival Date: 08/29/2020 Time: 09:20 Bed 16 Private MD: Diagnosis: Fall due to bumping against object;Superficial injury of head;Contusion of right hip;Weakness Presentation: 08/29 09:21 Chief complaint: EMS states: Slipped in bathroom yesterday, c/o left hip pain, left hb chest wall pain, and pain in right groin when ambulating. Coronavirus screen: At this time, the client does not indicate any symptoms associated with coronavirus-19. Ebola Screen: No symptoms or risks identified at this time. Initial Sepsis Screen: Does the patient meet any 2 criteria? No. Patient's initial sepsis screen is negative. Does the patient have a suspected source of infection? No. Patient's initial sepsis screen is negative. Risk Assessment: Do you want to hurt yourself or someone else? Patient reports no desire to harm self or others. Onset of symptoms was August 28, 2020. 09:21 Method Of Arrival: EMS: [facility] 09:21 Acuity: WARREN 3 hb Triage Assessment: 09:31 General: Appears in no apparent distress. comfortable, Behavior is calm, cooperative, tr6 appropriate for age. Pain: Complains of pain in c/o pain in left shoulder and lower back s/p mechanical fall per pt. EENT: s/p fall. abrasion to upper nose and knot on forehead. Neuro: No deficits noted. Cardiovascular: No deficits noted. Respiratory: No deficits noted. GI: No deficits noted. : No deficits noted. Derm: No deficits noted. Musculoskeletal: Reports weakness in b/l lower extremeties. pt normally walks with a walker. Injury Description: Abrasion sustained to nose. Historical: - Allergies: 09:23 clindamycin HCl (bulk); hb 09:23 Darvocet-N 100; hb 09:23 PENICILLINS; hb 09:23 Strawberries; hb 09:23 Sulfa (Sulfonamide Antibiotics); hb - Home Meds: 09:23 duloxetine 60 mg Oral cpDR 2 caps once daily [Active]; Macrodantin 50 mg Oral cap 1 cap hb once daily [Active]; metoprolol succinate 50 mg Oral Tb24 1 tab once daily [Active]; potassium chloride 10 mEq Oral cpER 1 cap 2 times per day [Active]; Seroquel 100 mg Oral tab daily [Active]; simvastatin 40 mg Oral tab 1 tab once daily [Active]; spironolactone 20mg Oral once daily [Active]; tramadol 50 mg Oral tab 2 times daily [Active]; - PMHx: 09:23 Cancer; Depression; Fibromyalgia; GERD; insomnia; lymphedema; skipped heart beats; hb - PSHx: 09:23 Appendectomy; Mastectomy, Left; Hysterectomy; lumbar fusion; knee replacements; hb cervical fusion; - Immunization history:: Adult Immunizations up to date. - Social history:: Smoking status: Patient denies any tobacco usage or history of. - Family history:: not pertinent. Screenin:30 Abuse screen: Denies threats or abuse. Denies injuries from another. Abuse screen: tr6 Denies threats or abuse. Denies injuries from another. Nutritional screening: No deficits noted. Tuberculosis screening: No symptoms or risk factors identified. Fall Risk Fall in past 12 months (25 points). Assessment: 10:02 General: Appears in no apparent distress. comfortable, Behavior is calm, cooperative. vg1 Pain: Complains of pain in right hip, right groin, Left fani of ribs Pain currently is 7 out of 10 on a pain scale. Pain began 2-3 days ago. Neuro: Level of Consciousness is awake, alert, obeys commands, Oriented to person, place, time, situation. Cardiovascular: Patient's skin is warm and dry. Respiratory: Airway is patent Respiratory effort is even, unlabored. GI: No signs and/or symptoms were reported involving the gastrointestinal system. : No signs and/or symptoms were reported regarding the genitourinary system. EENT: No signs and/or symptoms were reported regarding the EENT system. Derm: Skin is intact, Skin is pink, warm \T\ dry. Musculoskeletal: Circulation, motion, and sensation intact. 12:15 Reassessment: Patient appears in no apparent distress at this time. No changes from vg1 previously documented assessment. Patient and/or family updated on plan of care and expected duration. Pain level reassessed. Patient is alert, oriented x 3, equal unlabored respirations, skin warm/dry/pink. 14:49 Reassessment: Patient appears in no apparent distress at this time. Patient and/or vg1 family updated on plan of care and expected duration. Pain level reassessed. Patient is alert, oriented x 3, equal unlabored respirations, skin warm/dry/pink. Vital Signs: 09:21 BP 127 / 65; Pulse 67; Resp 16; Temp 97.8; Pulse Ox 100% ; Pain 5/10; hb 10:03 BP 110 / 50; Pulse 56; Resp 16; Pulse Ox 97% on R/A; vg1 12:16 BP 111 / 57; Pulse 52; Resp 18; Pulse Ox 94% on R/A; vg1 14:40 BP 115 / 55; Pulse 56; Resp 18; Pulse Ox 95% on R/A; vg1 ED Course: 09:20 Patient arrived in ED. hb 09:22 Rodriguez Berry MD is Attending Physician. mady 09:22 Triage completed. hb 09:23 Arm band placed on. hb 09:30 Karina Olea RN is Primary Nurse. tr6 09:38 Patient has correct armband on for positive identification. Fall risk band placed. Bed tr6 in low position. Side rails up X2. 09:38 No provider procedures requiring assistance completed. tr6 09:43 EKG done, by ED staff, reviewed by Rodriguez Berry MD. em1 10:15 Primary Nurse role handed off by Karina Olea, RN vg1 10:15 Connie Lieberman, RN is Primary Nurse. vg1 10:45 Missed attempt(s): 22 gauge in right forearm. vg1 10:52 Initial lab(s) drawn, by ED staff, sent to lab. Missed attempt(s): 22 gauge in right vg1 forearm. 11:19 Head C Spine Cap Wo Con In Process Unspecified. EDMS 11:33 XRAY Chest (1 view) In Process Unspecified. EDMS 11:33 Pelvis XRAY In Process Unspecified. EDMS 11:33 Hip Right 2 View XRAY In Process Unspecified. EDMS 11:33 Femur Right XRAY In Process Unspecified. EDMS 11:[address]. vg1 13:10 Abiel Dudley MD is Referral Physician. mady Administered Medications: 12:15 Drug: NS 0.9% 500 ml Route: IV; Rate: bolus; Site: left jugular; vg1 12:45 Follow up: IV Status: Completed infusion; IV Intake: 500ml vg1 12:59 Drug: NS 0.9% 1000 ml Route: IV; Rate: 125 ml/hr; Site: left jugular; vg1 14:51 Follow up: IV Status: Completed infusion; IV Intake: 700ml vg1 Intake: 12:45 IV: 500ml; Total: 500ml. vg1 14:51 IV: 700ml; Total: 1200ml. vg1 Outcome: 13:10 Discharge ordered by MD. earl 14:51 Patient left the ED. vg1 Signatures: Dispatcher [employer] EDMS Rodriguez Berry MD MD cha Martinez, Eric em1 Charis Hong RN RN hb Garcia, Victoria, RN RN vg1 Karina Olea RN RN tr6
--- NOTE | 2020-08-29 13:12 | EDPHYS ---
Physician Documentation [facility] Name: Agnes Calabrese Age: 80 yrs Sex: Female : 1940 Arrival Date: 08/29/2020 Time: 09:20 Bed 16 Private MD: FIONA Physician Rodriguez Berry HPI: 08/29 10:18 This 80 yrs old Female presents to ER via EMS with complaints of Hip Pain. mady 10:18 The patient or guardian reports decreased range of motion, pain. sustained from a fall, mady the patient slipped, from a standing position. The complaints affect the right hip. Onset: The symptoms/episode began/occurred 2 day(s) ago. Modifying factors: The symptoms are alleviated by nothing, the symptoms are aggravated by any movement. Associated signs and symptoms: Loss of consciousness: the patient experienced no loss of consciousness. Severity of symptoms: At their worst the symptoms were moderate. The patient has not experienced similar symptoms in the past. Historical: - Allergies: 09:23 clindamycin HCl (bulk); hb 09:23 Darvocet-N 100; hb 09:23 PENICILLINS; hb 09:23 Strawberries; hb 09:23 Sulfa (Sulfonamide Antibiotics); hb - Home Meds: 09:23 duloxetine 60 mg Oral cpDR 2 caps once daily [Active]; Macrodantin 50 mg Oral cap 1 cap hb once daily [Active]; metoprolol succinate 50 mg Oral Tb24 1 tab once daily [Active]; potassium chloride 10 mEq Oral cpER 1 cap 2 times per day [Active]; Seroquel 100 mg Oral tab daily [Active]; simvastatin 40 mg Oral tab 1 tab once daily [Active]; spironolactone 20mg Oral once daily [Active]; tramadol 50 mg Oral tab 2 times daily [Active]; - PMHx: 09:23 Cancer; Depression; Fibromyalgia; GERD; insomnia; lymphedema; skipped heart beats; hb - PSHx: 09:23 Appendectomy; Mastectomy, Left; Hysterectomy; lumbar fusion; knee replacements; hb cervical fusion; - Immunization history:: Adult Immunizations up to date. - Social history:: Smoking status: Patient denies any tobacco usage or history of. - Family history:: not pertinent. ROS: 10:18 Constitutional: Negative for fever, chills, and weight loss, Eyes: Negative for injury, mady pain, redness, and discharge, ENT: Negative for injury, pain, and discharge, Neck: Negative for injury, pain, and swelling, Cardiovascular: Negative for chest pain, palpitations, and edema, Respiratory: Negative for shortness of breath, cough, wheezing, and pleuritic chest pain, Back: Negative for injury and pain, : Negative for injury, bleeding, discharge, and swelling, MS/Extremity: Negative for injury and deformity, Skin: Negative for injury, rash, and discoloration, Neuro: Negative for headache, weakness, numbness, tingling, and seizure. 10:18 Abdomen/GI: Negative for abdominal pain, nausea, vomiting, diarrhea, and constipation. 10:18 Abdomen/GI: Exam: 10:18 Constitutional: This is a well developed, well nourished patient who is awake, alert, mady and in no acute distress. Head/Face: Normocephalic, atraumatic. Eyes: Pupils equal round and reactive to light, extra-ocular motions intact. Lids and lashes normal. Conjunctiva and sclera are non-icteric and not injected. Cornea within normal limits. Periorbital areas with no swelling, redness, or edema. ENT: Nares patent. No nasal discharge, no septal abnormalities noted. Tympanic membranes are normal and external auditory canals are clear. Oropharynx with no redness, swelling, or masses, exudates, or evidence of obstruction, uvula midline. Mucous membranes moist. Neck: Trachea midline, no thyromegaly or masses palpated, and no cervical lymphadenopathy. Supple, full range of motion without nuchal rigidity, or vertebral point tenderness. No Meningismus. Chest/axilla: Normal chest wall appearance and motion. Nontender with no deformity. No lesions are appreciated. Cardiovascular: Regular rate and rhythm with a normal S1 and S2. No gallops, murmurs, or rubs. Normal PMI, no JVD. No pulse deficits. Respiratory: Lungs have equal breath sounds bilaterally, clear to auscultation and percussion. No rales, rhonchi or wheezes noted. No increased work of breathing, no retractions or nasal flaring. Abdomen/GI: Soft, non-tender, with normal bowel sounds. No distension or tympany. No guarding or rebound. No evidence of tenderness throughout. Back: No spinal tenderness. No costovertebral tenderness. Full range of motion. Female : Normal external genitalia. Skin: Warm, dry with normal turgor. Normal color with no rashes, no lesions, and no evidence of cellulitis. Neuro: Awake and alert, GCS 15, oriented to person, place, time, and situation. Cranial nerves II-XII grossly intact. Motor strength 5/5 in all extremities. Sensory grossly intact. Cerebellar exam normal. Normal gait. Psych: Awake, alert, with orientation to person, place and time. Behavior, mood, and affect are within normal limits. 10:18 Musculoskeletal/extremity: ROM: limited active range of motion, limited passive range of motion, in the right leg, Circulation is intact in all extremities. Sensation intact. Compartment Syndrome exam of affected extremity: is normal. DVT Exam: no swelling, negative Homans' sign noted on exam, no appreciated bluish discoloration, no erythema, no increased warmth, pain, tenderness. 10:23 ECG was reviewed by the Attending Physician. [facility] Vital Signs: 09:21 BP 127 / 65; Pulse 67; Resp 16; Temp 97.8; Pulse Ox 100% ; Pain 5/10; hb 10:03 BP 110 / 50; Pulse 56; Resp 16; Pulse Ox 97% on R/A; vg1 12:16 BP 111 / 57; Pulse 52; Resp 18; Pulse Ox 94% on R/A; vg1 14:40 BP 115 / 55; Pulse 56; Resp 18; Pulse Ox 95% on R/A; vg1 Procedures: 12:15 Peripheral line: by aseptic technique a peripheral line was placed in the left external mady jugular vein. MDM: 09:22 Patient medically screened. [facility] 10:21 Differential diagnosis: hip fracture, intertrochanteric fracture. Data reviewed: vital [facility] signs, nurses notes, lab test result(s), EKG, radiologic studies, CT scan, plain films. Data interpreted: monitoring manager: not applicable for this patient encounter. Pulse oximetry: on room air is 97 %. Test interpretation: by ED physician or midlevel provider: ECG, plain radiologic studies. Counseling: I had a detailed discussion with the patient and/or guardian regarding: the historical points, exam findings, and any diagnostic results supporting the discharge/admit diagnosis, lab results, radiology results. 08/29 10:17 Order name: Basic Metabolic Panel; Complete Time: 13:01 [facility] 08/29 10:17 Order name: CBC with Diff; Complete Time: 12:14 [facility] 08/29 10:17 Order name: LFT's; Complete Time: 13: [facility] 08/29 10:17 Order name: Magnesium; Complete Time: 13: [facility] 08/29 10:17 Order name: NT PRO-BNP; Complete Time: 13: [facility] 08/29 10:17 Order name: PT-INR; Complete Time: 13: [facility] 08/29 10:17 Order name: Troponin (emerg Dept Use Only); Complete Time: 13: [facility] 08/29 10:17 Order name: XRAY Chest (1 view); Complete Time: 12:14 [facility] 08/29 10:17 Order name: Lipase; Complete Time: 13: [facility] 08/29 10:17 Order name: Pelvis XRAY; Complete Time: 13: [facility] 08/29 10:17 Order name: Hip Right 2 View XRAY; Complete Time: 13: [facility] 08/29 10:17 Order name: Femur Right XRAY; Complete Time: 13: [facility] 08/29 11:16 Order name: Head C Spine Cap Wo Con; Complete Time: 12:14 EDMS 08/29 09:34 Order name: EKG - Nurse/Tech; Complete Time: 09:39 tr6 08/29 10:17 Order name: EKG; Complete Time: 10:18 [facility] 08/29 10:17 Order name: Cardiac monitoring; Complete Time: 10:33 [facility] 08/29 10:17 Order name: IV Saline Lock; Complete Time: 12:17 [facility] 08/29 10:17 Order name: Labs collected and sent; Complete Time: 10:52 [facility] 08/29 10:17 Order name: O2 Per Protocol; Complete Time: 10:34 [facility] 08/29 10:17 Order name: O2 Sat Monitoring; Complete Time: 10:34 [facility] 08/29 11:07 Order name: Labs - recollect needed: recolllect all labs; Complete Time: 12:17 bd EC:23 Rate is 56 beats/min. Rhythm is regular. QRS [place] is Normal. [place] interval is normal. QRS mady interval is normal. QT interval is normal. No Q waves. T waves are Normal. No ST changes noted. Clinical impression: Sinus bradycardia and No evidence of ischemia. Interpreted by me. Reviewed by me. Administered Medications: 12:15 Drug: NS 0.9% 500 ml Route: IV; Rate: bolus; Site: left jugular; vg1 12:45 Follow up: IV Status: Completed infusion; IV Intake: 500ml vg1 12:59 Drug: NS 0.9% 1000 ml Route: IV; Rate: 125 ml/hr; Site: left jugular; vg1 14:51 Follow up: IV Status: Completed infusion; IV Intake: 700ml vg1 Disposition: 08/29/20 13:10 Discharged to Home. Impression: Fall due to bumping against object, Superficial injury of head, Contusion of right hip, Weakness. - Condition is Stable. - Discharge Instructions: Head Injury, Adult, Near-Syncope, Weakness, Weakness, [id number], Head Injury, Adult, Juzu-xf-Oubi. - Prescriptions for Tylenol- Codeine #3 300-30 mg Oral Tablet - take 1 tablet by ORAL route every 4-6 hours As needed; 20 tablet. - Medication Reconciliation Form, Thank You Letter, Antibiotic Education, Prescription Opioid Use form. - Follow up: Private Physician; When: 2 - 3 days; Reason: Recheck today's complaints, Continuance of care, Re-evaluation by your physician. Follow up: Dr. Abiel Dudley; When: 2 - 3 days; Reason: Recheck today's complaints, Continuance of care, Re-evaluation by your physician. - Problem is new. - Symptoms have improved. Signatures: Dispatcher [employer] EDMS Silvia Loya Corey, MD MD cha Baxter, Heather, RN Connie Jules RN RN vg1 Karina Olea RN RN tr6 Corrections: (The following items were deleted from the chart) 11:16 10:18 Head C Spine CAP W Con+CT.RAD.BRZ ordered. EDNE EDMS 14:51 13:10 08/29/2020 13:10 Discharged to Home. Impression: Fall due to bumping against vg1 object; Superficial injury of head; Contusion of right hip; Weakness. Condition is Stable. Discharge Instructions: Head Injury, Adult, Near-Syncope, Weakness, Weakness, Umld-vl-Dcpm, Head Injury, Adult, [id number]. Prescriptions for Tylenol-Codeine #3 300-30 mg Oral Tablet - take 1 tablet by ORAL route every 4-6 hours As needed; 20 tablet. and Forms are Medication Reconciliation Form, Thank You Letter, Antibiotic Education, Prescription Opioid Use. Follow up: Private Physician; When: 2 - 3 days; Reason: Recheck today's complaints, Continuance of care, Re-evaluation by your physician. Follow up: Dr. Abiel Dudley; When: 2 - 3 days; Reason: Recheck today's complaints, Continuance of care, Re-evaluation by your physician. Problem is new. Symptoms have improved. mady
[2020-08-29 15:02] VITALS: TEMP 97.8
[2020-08-29 15:06] VITALS: BP 115/55; O2SAT 95
== END 2020-08-29 14:51 | disposition home or self-care (01) ==
LOC: ER 09:19
PROC: 05HQ33Z Insertion of Infusion Device into Left External Jugular Vein, Percutaneous Approach (ICD-10-PCS; principal; 2020-08-29)
DX: S70.01XA Contusion of right hip, initial encounter (principal); S00.90XA Unspecified superficial injury of unspecified part of head, initial encounter; R53.1 Weakness; W18.00XA Striking against unspecified object with subsequent fall, initial encounter; F32.9 Major depressive disorder, single episode, unspecified; Z90.12 Acquired absence of left breast and nipple; Z88.0 Allergy status to penicillin; Z88.1 Allergy status to other antibiotic agents; Z88.2 Allergy status to sulfonamides; Z88.5 Allergy status to narcotic agent; Z91.018 Allergy to other foods
CPT/HCPCS: 96361; 85025; 80048; 36415; 83735; 85610; 80076; 84484; 83690; 83880; 70450; 71250; 72125; 71045; 72170; 73502; 73552; 96360; 99284; 36569; J7030

== ENCOUNTER 2020-10-19 14:49 | Observation (INO) | payer OTHER ==
--- OUTSIDE RECORDS SUMMARY | 2020-10-19 14:56 | XMS REPORT | Continuity of Care Document ---
:1940 Author Organization [facility] t Address [address] [place] [address] Care Team Providers Name Role Phone Farhat HOLT Primary Care Physician Hilton HOLT Attending Clinician Payers Payer Name Policy Type Policy Effective Date Expiration Date Sour ce Number AETNA MEDICAREAETNA [id number] 2013 [place] MEDICARE HMO/PPO 00:00:00 Methodis t [id number] -PresentHMO Problems This patient has no known [...] Date Source Natural father Diabetes [facility] thodist Natural father Heart disease [facility] Natural father Hypertension [place] Natural mother Asthma [facility] Social History Social Habit Start Date Stop Date Quantity Comments Source History of tobacco Current smoker [facility] Binge Cigarettes smoked 2019-10-18 2019-10-18 [facility] current (pack per 00:00:00 00:00:00 day) - Reported Cigarette 2019-10-18 2019-10-18 [facility] pack-years 00:00:00 00:00:00 Tobacco use and 2019-10-18 2019-10-18 Never used [facility] exposure 00:00:00 00:00:00 Alcohol intake 2019-10-18 2019-10-18 Lifetime [facility]odist 00:00:00 00:00:00 non-drinker (finding) History SDOH 2019-10-18 2019-10-18 1 [place] [facility] Alcohol Frequency 00:00:00 00:00:00 Sex [birth year] [place] ethodist 00:00:00 00:00:00 Smoking Status Start Date Stop Date Source Former smoker 2019-10-18 00:00:00 2019-10-18 00:00:00 [facility] Medications This patient has no known medications. Procedures Procedure Date / Time Performed Performing Clinician [facility] e [place] EXTERNAL STUDY EXAM 2019-12-09 11:20:00 Renan Keita on Islam Plan of Care Planned Activity Planned Date Details Comments Source Future Scheduled 2020-11-18 INFLUENZA VACCINE Luis Miguel harris [facility] Test 00:00:00 [code = INFLUENZA VACCINE] Future Scheduled 2006 65+ PNEUMOCOCCAL [place] [facility] Test 00:00:00 VACCINE (1 of 1 - PPSV23) [code = 65+ PNEUMOCOCCAL VACCINE (1 of 1 - PPSV23)] Future Scheduled 1991 SHINGLES VACCINES (#1) H khris [facility] Test 00:00:00 [code = SHINGLES VACCINES (#1)] Future Scheduled 1959 Hepatitis C screening Ho jagruti Islam Test 00:00:00 (procedure) [code = 185913666] Encounters Start End Encounter Admission Attending Care Care Encounter Source Date/Time Date/Time Type Type Clinicians Facility Department ID 2020-08-27 2020-08-27 Outpatient KEITA, [facility] [id number] [place] 00:00:00 00:00:00 RENAN [id number] 2020-07-03 2020-07-03 Outpatient KEITA, [facility] [id number] [place] 00:00:00 00:00:00 RENAN [address] 2019-10-18 2019-10-18 Outpatient KEITA, [facility] [id number] [place] 00:00:00 00:00:00 RENAN [id number] 2019-10-18 2019-10-18 Outpatient KEITA, [facility] [id number] [place] 00:00:00 00:00:00 RENAN [address] Results Test Description Test Time Test Comments Results Result [facility] e Comments [place] External Study 2020-08-27 This exam was not Green Exam 08:55:15 acquired at a Islam Islam facility and has not been interpreted by a Islam Provider. The exam was imported into our imaging system.
--- NOTE | 2020-10-19 15:45 | RAD REPORT ---
EXAM DESCRIPTION: CT - Head C Spine Mpr Wo Con - 10/19/2020 3:16 pm CLINICAL HISTORY: Head and neck injury status post fall. Head and neck pain COMPARISON: April 2020 TECHNIQUE: Computed axial tomography of the head and cervical spine was obtained. Sagittal and coronal reconstruction was performed. All CT scans are performed using dose optimization technique as appropriate and may include automated exposure control or mA/KV adjustment according to patient size. FINDINGS: An intracranial bleed is not seen. The ventricles are normal in caliber. An extra-axial fl uid collection is not noted.Fluid within the visualized sinuses and mastoids is not seen A cervical fracture is not visualized. No dislocation is noted. Postsurgical changes involve the cerv ical spine. Mild posterior subluxation C4 on C5 without significant change. IMPRESSION: No acute intracranial abnormality is seen. A cervical fracture is not visualized. If the patient continues to have symptoms to suggest intracra nial /spinal cord pathology then MRI would be recommended
--- NOTE | 2020-10-19 15:47 | RAD REPORT ---
EXAM DESCRIPTION: Ino Single View10/19/2020 3:33 pm CLINICAL HISTORY: Chest pain COMPARISON: August 2020 FINDINGS: The lungs appear clear of acute infiltrate. The heart is mildly enlarged IMPRESSION: No acute abnormalities displayed
[2020-10-19 16:22] LABS: Protime INR 0.97
[2020-10-19 16:23] LABS: Absolute Lymphocytes (CBC) 2.1 K/uL (0.7-4.9); Basophils % 0.9 % (0-1.3); Hematocrit 45.7 % (36.0-45.0); Lymphocytes % 23.9 % (15.3-44.8); RBC Red Blood Cell Count 4.78 M/uL (3.86-4.86)
[2020-10-19 16:35] LABS: ALT/SGPT 32 U/L (12-78); AST/SGOT 20 U/L (15-37); Alkaline Phosphatase 93 U/L (45-117); BUN Blood Urea Nitrogen 22 mg/dL (7-18); Bicarbonate 33 mmol/L (21-32); Bilirubin Direct < 0.1 mg/dL (0-0.2); Bilirubin Total 0.4 mg/dL (0.2-1.0); Glucose Level 91 mg/dL (74-106); Magnesium 2.3 mg/dL (1.8-2.4); NT PRO-BNP 270 pg/mL (<450); Potassium 3.2 mmol/L (3.5-5.1); Protein, Total 6.9 g/dL (6.4-8.2); Sodium Level 140 mmol/L (136-145); Troponin (Emerg Dept Use Only) < 0.02 ng/mL (0.0-0.045)
[2020-10-19] MEDS ORDERED: POTASSIUM CL SA 10 MEQ TAB PO ONE (17:14)
--- NOTE | 2020-10-19 17:31 | ER ---
Nurse's Notes [facility] Name: Agnes Calabrese Age: 80 yrs Sex: Female : 1940 Arrival Date: 10/19/2020 Time: 14:53 Bed 15 Private MD: Diagnosis: Syncope;Orthostatic hypotension;Abnormal electrocardiogram [ECG] [EKG] Presentation: 10/19 14:57 Chief complaint: Patient states: I felt dizzy, then I fell and my head bounced once on ca1 the floor. I am not in pain but my head is aching. EMS states: Syncopal episode presumably fell from standing and hit head on floor. Pt on Plavix. BGL 110. EKG shows ST depression on V3. Coronavirus screen: Client denies travel out of the [place] in the last 14 days. At this time, the client does not indicate any symptoms associated with coronavirus-19. Ebola Screen: Patient negative for fever greater than or equal to 101.5 degrees Fahrenheit, and additional compatible Ebola Virus Disease symptoms Patient denies exposure to infectious person. Patient denies travel to an Ebola-affected area in the 21 days before illness onset. No symptoms or risks identified at this time. Initial Sepsis Screen: Does the patient meet any 2 criteria? No. Patient's initial sepsis screen is negative. Does the patient have a suspected source of infection? No. Patient's initial sepsis screen is negative. Risk Assessment: Do you want to hurt yourself or someone else? Patient reports no desire to harm self or others. Onset of symptoms was October 19, 2020. 14:57 Method Of Arrival: EMS: [facility] ca1 14:57 Acuity: WARREN 2 ca1 Historical: - Allergies: 15:00 clindamycin HCl (bulk); ca1 15:00 Darvocet-N 100; ca1 15:00 PENICILLINS; ca1 15:00 Strawberries; ca1 15:00 Sulfa (Sulfonamide Antibiotics); ca1 - Home Meds: 15:00 alprazolam 0.25 mg Oral tab 1 tab twice a day for anxiety [Active]; benzonatate 200 mg ca1 oral cap 1 cap 3 times per day [Active]; bupropion HCl 150 mg Oral Tb24 1 tab once daily [Active]; bupropion HCl 300 mg Oral Tb24 1 tab once daily [Active]; clopidogrel 75 mg oral tab 1 tab once daily [Active]; donepezil 10 mg oral tab 1 tab once daily [Active]; duloxetine 60 mg Oral cpDR 2 caps once daily [Active]; doxepin 50 mg Oral cap 1 cap once daily [Active]; Ellura 200 mg oral cap daily [Active]; gabapentin 300 mg oral cap 1 cap 3 times per day [Active]; hydrocodone-acetaminophen 7.5-325 mg Oral tab 1 tab every 8 hours [Active]; indapamide 2.5 mg oral tab 1 tab once daily [Active]; levothyroxine 75 mcg tab 1 tab once daily [Active]; magnesium oxide 500 mg Oral tab 500 mg after meals and before bedtime [Active]; memantine 10 mg oral tab 1 tab 2 times per day [Active]; metoprolol succinate 25 mg oral Tb24 1 tab once daily [Active]; pantoprazole 40 mg oral grps 1 packet once daily [Active]; potassium chloride 20 mEq oral TbER 1 tab 2 times per day [Active]; simvastatin 40 mg Oral tab 1 tab once daily [Active]; quetiapine 200 mg oral Tb24 1 tab once daily [Active]; tizanidine 4 mg oral tab 1 tab daily [Active]; topiramate 200 mg oral cp24 1 cap twice a day [Active]; Trelegy Ellipta 100-62.5-25 mcg inhalation dsdv 1 puff once daily [Active]; - PMHx: 15:00 Cancer; Depression; Fibromyalgia; GERD; insomnia; lymphedema; skipped heart beats; ca1 - Immunization history:: Adult Immunizations up to date, Client reports receiving the 2nd dose of the Covid vaccine, Client reports receiving the 1st dose of the Covid vaccine, Pneumococcal vaccine is up to date, Flu vaccine is up to date. - Social history:: Smoking status: Patient/guardian denies using tobacco, the patient reports quitting approximately 53 years ago. Screenin:00 Abuse screen: Denies threats or abuse. Denies injuries from another. Nutritional ca1 screening: No deficits noted. Tuberculosis screening: No symptoms or risk factors identified. Fall Risk Fall in past 12 months (25 points). IV access (20 points). Ambulatory Aid- Crutches/Cane/Walker (15 pts). Total Arredondo Fall Scale indicates High Risk Score (45 or more points). Fall prevention measures have been instituted. Side Rails Up X 2 Frequent Obs/Assessments Occuring As available patient and family educated on Fall Prevention Program and Strategies. Assessment: 15:00 General: Appears in no apparent distress. comfortable, Behavior is calm, cooperative, ca1 appropriate for age. Pain: Complains of pain in scalp Pain currently is 2 out of 10 on a pain scale. Quality of pain is described as aching. Neuro: Level of Consciousness is awake, alert, obeys commands, Oriented to person, place, time, situation. Neuro: Reports a syncopal episode. Cardiovascular: Heart tones S1 S2 present Capillary refill < 3 seconds Patient's skin is warm and dry. Rhythm is sinus rhythm. Respiratory: Airway is patent Respiratory effort is even, unlabored, Respiratory pattern is regular, symmetrical, Breath sounds are clear bilaterally. GI: Abdomen is round non-distended, Bowel sounds present X 4 quads. Abd is soft and non tender X 4 quads. : No signs and/or symptoms were reported regarding the genitourinary system. EENT: No signs and/or symptoms were reported regarding the EENT system. Derm: Skin is intact, is healthy with good turgor, Skin is pink, warm \T\ dry. Musculoskeletal: Circulation, motion, and sensation intact. Capillary refill < 3 seconds. 16:00 Reassessment: Patient appears in no apparent distress at this time. Patient and/or ca1 family updated on plan of care and expected duration. Pain level reassessed. Patient is alert, oriented x 3, equal unlabored respirations, skin warm/dry/pink. 17:00 Reassessment: Patient appears in no apparent distress at this time. Patient and/or ca1 family updated on plan of care and expected duration. Pain level reassessed. Patient is alert, oriented x 3, equal unlabored respirations, skin warm/dry/pink. 17:50 Reassessment: Patient appears in no apparent distress at this time. Patient and/or ca1 family updated on plan of care and expected duration. Pain level reassessed. Patient is alert, oriented x 3, equal unlabored respirations, skin warm/dry/pink. 18:42 Reassessment: Patient appears in no apparent distress at this time. Patient and/or ca1 family updated on plan of care and expected duration. Pain level reassessed. Patient is alert, oriented x 3, equal unlabored respirations, skin warm/dry/pink. 19:50 Reassessment: Patient appears in no apparent distress at this time. Patient and/or ca1 family updated on plan of care and expected duration. Pain level reassessed. Patient is alert, oriented x 3, equal unlabored respirations, skin warm/dry/pink. 20:25 Reassessment: Patient appears in no apparent distress at this time. Patient is alert, ca1 oriented x 3, equal unlabored respirations, skin warm/dry/pink. Vital Signs: 14:57 BP 151 / 94; Pulse 65; Resp 18 S; Temp 98.5(O); Pulse Ox 100% on R/A; Weight 95.25 kg ca1 (R); Height 5 ft. 3 in. (160.02 cm) (R); Pain 0/10; 15:00 BP 115 / 77; Pulse 60; Resp 18 S; Pulse Ox 97% on R/A; ca1 17:16 BP 129 / 81 Supine; Pulse 67; Resp 18 S; Pulse Ox 100% on R/A; ca1 17:18 BP 126 / 69 Sitting; Pulse 61; Resp 15 S; Pulse Ox 100% on R/A; ca1 17:20 BP 91 / 65 Standing; Pulse 64; Resp 18 S; Pulse Ox 96% on R/A; ca1 18:30 BP 99 / 84; Pulse 59; Resp 18 S; Pulse Ox 96% on R/A; ca1 19:50 BP 109 / 58; Pulse 62; Resp 17 S; Pulse Ox 95% on R/A; ca1 14:57 Body Mass Index 37.20 (95.25 kg, 160.02 cm) ca1 ED Course: 14:53 Patient arrived in ED. ca1 15:00 Triage completed. ca1 15:00 Arm band placed on right wrist. ca1 15:00 Patient has correct armband on for positive identification. Bed in low position. Call ca1 light in reach. Side rails up X2. engine monitor on. Pulse ox on. NIBP on. Warm blanket given. 15:01 Arturo Dennis PA is PHCP. jr8 15:01 Kevin Ordonez MD is Attending Physician. jr8 15:05 EKG done, by ED staff, reviewed by Arturo VALDEZ. dh3 15:10 Acob, Ena, RN is Primary Nurse. ca1 15:16 CT Head C Spine In Process Unspecified. EDMS 15:33 XRAY Chest (1 view) In Process Unspecified. EDMS 15:50 Missed attempt(s): 22 gauge in right upper arm. Bleeding controlled, band aid applied, ca1 catheter tip intact. 16:08 Accessed peripheral vein via ultrasound, utilizing dynamic ultrasound technique using jd3 18G Nexia IV Catheter ,sterile technique, per hospital protocol. Clean \T\ dry. Dressing intact. Good blood return. Flushes easily. 17:30 Socrates Stock is Hospitalizing Provider. jr8 20:03 No provider procedures requiring assistance completed. ca1 20:03 Patient admitted, IV remains in place. ca1 Administered Medications: 16:58 Drug: Potassium Chloride 40 mEq Route: PO; ca1 18:42 Follow up: Response: No adverse reaction ca1 17:29 Drug: NS 0.9% 500 ml Route: IV; Rate: bolus; Site: right antecubital; ca1 18:15 Follow up: IV Status: Completed infusion; IV Intake: 500ml ca1 18:16 Drug: NS 0.9% 1000 ml Route: IV; Rate: 75 ml/hr; Site: right antecubital; ca1 18:42 Follow up: Response: No adverse reaction; IV Status: Infusion continued upon admission ca1 Intake: 18:15 IV: 500ml; Total: 500ml. ca1 Outcome: 17:31 Decision to Hospitalize by Provider. jr8 20:03 Admitted to Med/surg accompanied by sarah, via stretcher, room 210, with chart, Report ca1 called to DANIEL Nazario 20:03 Condition: stable 20:03 Instructed on the need for admit, Demonstrated understanding of instructions. 20:25 Patient left the ED. ca1 Signatures: Dispatcher [employer] EDMS Arturo Dennis PA PA jr8 Denisa Renee [facility] Poncho Macias RN RN Ena Chandra RN RN ca1
--- NOTE | 2020-10-19 17:31 | EDPHYS ---
Physician Documentation [facility] Name: Agnes Calabrese Age: 80 yrs Sex: Female : 1940 Arrival Date: 10/19/2020 Time: 14:53 Bed 15 Private MD: ED Physician Kevin Ordonez HPI: 10/19 16:42 This 80 yrs old Female presents to ER via EMS with complaints of Syncope, jr8 Fall Injury. 16:42 The patient has experienced syncope, collapsed, lost consciousness. Onset: The jr8 symptoms/episode began/occurred acutely, today. Duration: This was a single episode. Context: occurred at home, occurred while the patient was walking, Just prior to the episode the patient experienced dizziness. Associated injury: Head/face: pain. Associated signs and symptoms: The patient has no apparent associated signs or symptoms. Current symptoms: Currently, the patient is not experiencing any symptoms, the patient feels back to baseline, no decreased level of consciousness, no confusion, no dysphasia, no headache, no paralysis, no visual changes. The patient has not experienced similar symptoms in the past. The patient has not recently seen a physician. Historical: - Allergies: 15:00 clindamycin HCl (bulk); ca1 15:00 Darvocet-N 100; ca1 15:00 PENICILLINS; ca1 15:00 Strawberries; ca1 15:00 Sulfa (Sulfonamide Antibiotics); ca1 - Home Meds: 15:00 alprazolam 0.25 mg Oral tab 1 tab twice a day for anxiety [Active]; benzonatate 200 mg ca1 oral cap 1 cap 3 times per day [Active]; bupropion HCl 150 mg Oral Tb24 1 tab once daily [Active]; bupropion HCl 300 mg Oral Tb24 1 tab once daily [Active]; clopidogrel 75 mg oral tab 1 tab once daily [Active]; donepezil 10 mg oral tab 1 tab once daily [Active]; duloxetine 60 mg Oral cpDR 2 caps once daily [Active]; doxepin 50 mg Oral cap 1 cap once daily [Active]; Ellura 200 mg oral cap daily [Active]; gabapentin 300 mg oral cap 1 cap 3 times per day [Active]; hydrocodone-acetaminophen 7.5-325 mg Oral tab 1 tab every 8 hours [Active]; indapamide 2.5 mg oral tab 1 tab once daily [Active]; levothyroxine 75 mcg tab 1 tab once daily [Active]; magnesium oxide 500 mg Oral tab 500 mg after meals and before bedtime [Active]; memantine 10 mg oral tab 1 tab 2 times per day [Active]; metoprolol succinate 25 mg oral Tb24 1 tab once daily [Active]; pantoprazole 40 mg oral grps 1 packet once daily [Active]; potassium chloride 20 mEq oral TbER 1 tab 2 times per day [Active]; simvastatin 40 mg Oral tab 1 tab once daily [Active]; quetiapine 200 mg oral Tb24 1 tab once daily [Active]; tizanidine 4 mg oral tab 1 tab daily [Active]; topiramate 200 mg oral cp24 1 cap twice a day [Active]; Trelegy Ellipta 100-62.5-25 mcg inhalation dsdv 1 puff once daily [Active]; - PMHx: 15:00 Cancer; Depression; Fibromyalgia; GERD; insomnia; lymphedema; skipped heart beats; ca1 - Immunization history:: Adult Immunizations up to date, Client reports receiving the 2nd dose of the Covid vaccine, Client reports receiving the 1st dose of the Covid vaccine, Pneumococcal vaccine is up to date, Flu vaccine is up to date. - Social history:: Smoking status: Patient/guardian denies using tobacco, the patient reports quitting approximately 53 years ago. ROS: 16:42 Eyes: Negative for injury, pain, redness, and discharge, ENT: Negative for injury, jr8 pain, and discharge, Neck: Negative for injury, pain, and swelling, Cardiovascular: Negative for chest pain, palpitations, and edema, Respiratory: Negative for shortness of breath, cough, wheezing, and pleuritic chest pain, Abdomen/GI: Negative for abdominal pain, nausea, vomiting, diarrhea, and constipation, Back: Negative for injury and pain, MS/Extremity: Negative for injury and deformity, Skin: Negative for injury, rash, and discoloration. 16:42 Neuro: Positive for dizziness, syncope. Exam: 16:42 Constitutional: This is a well developed, well nourished patient who is awake, alert, jr8 and in no acute distress. Head/Face: Normocephalic, atraumatic. Eyes: Pupils equal round and reactive to light, extra-ocular motions intact. Lids and lashes normal. Conjunctiva and sclera are non-icteric and not injected. Cornea within normal limits. Periorbital areas with no swelling, redness, or edema. ENT: Nares patent. No nasal discharge, no septal abnormalities noted. Tympanic membranes are normal and external auditory canals are clear. Oropharynx with no redness, swelling, or masses, exudates, or evidence of obstruction, uvula midline. Mucous membranes moist. Neck: Trachea midline, no thyromegaly or masses palpated, and no cervical lymphadenopathy. Supple, full range of motion without nuchal rigidity, or vertebral point tenderness. No Meningismus. Chest/axilla: Normal chest wall appearance and motion. Nontender with no deformity. No lesions are appreciated. Cardiovascular: Regular rate and rhythm with a normal S1 and S2. No gallops, murmurs, or rubs. Normal PMI, no JVD. No pulse deficits. Respiratory: Lungs have equal breath sounds bilaterally, clear to auscultation and percussion. No rales, rhonchi or wheezes noted. No increased work of breathing, no retractions or nasal flaring. Abdomen/GI: Soft, non-tender, with normal bowel sounds. No distension or tympany. No guarding or rebound. No evidence of tenderness throughout. Back: No spinal tenderness. No costovertebral tenderness. Full range of motion. Skin: Warm, dry with normal turgor. Normal color with no rashes, no lesions, and no evidence of cellulitis. MS/ Extremity: Pulses equal, no cyanosis. Neurovascular intact. Full, normal range of motion. Neuro: Awake and alert, GCS 15, oriented to person, place, time, and situation. Cranial nerves II-XII grossly intact. Motor strength 5/5 in all extremities. Sensory grossly intact. Cerebellar exam normal. 17:28 ECG was reviewed by the Attending Physician. jr8 Vital Signs: 14:57 BP 151 / 94; Pulse 65; Resp 18 S; Temp 98.5(O); Pulse Ox 100% on R/A; Weight 95.25 kg ca1 (R); Height 5 ft. 3 in. (160.02 cm) (R); Pain 0/10; 15:00 BP 115 / 77; Pulse 60; Resp 18 S; Pulse Ox 97% on R/A; ca1 17:16 BP 129 / 81 Supine; Pulse 67; Resp 18 S; Pulse Ox 100% on R/A; ca1 17:18 BP 126 / 69 Sitting; Pulse 61; Resp 15 S; Pulse Ox 100% on R/A; ca1 17:20 BP 91 / 65 Standing; Pulse 64; Resp 18 S; Pulse Ox 96% on R/A; ca1 18:30 BP 99 / 84; Pulse 59; Resp 18 S; Pulse Ox 96% on R/A; ca1 19:50 BP 109 / 58; Pulse 62; Resp 17 S; Pulse Ox 95% on R/A; ca1 14:57 Body Mass Index 37.20 (95.25 kg, 160.02 cm) ca1 MDM: 15:02 Patient medically screened. [facility] 17:30 Data reviewed: vital signs, nurses notes, lab test result(s), EKG, radiologic studies, [facility] CT scan, plain films. Data interpreted: Pulse oximetry: on room air is 100 %. Interpretation: normal. Counseling: I had a detailed discussion with the patient and/or guardian regarding: the historical points, exam findings, and any diagnostic results supporting the discharge/admit diagnosis, lab results, radiology results, the need for further work-up and treatment in the hospital. 10/19 15:02 Order name: Basic Metabolic Panel; Complete Time: 16:41 [facility] 10/19 15:02 Order name: CBC with Diff; Complete Time: 16:30 [facility] 10/19 15:02 Order name: LFT's; Complete Time: 16:41 [facility] 10/19 15:02 Order name: Magnesium; Complete Time: 16:41 [facility] 10/19 15:02 Order name: NT PRO-BNP; Complete Time: 16:41 [facility] 10/19 15:02 Order name: PT-INR; Complete Time: 16:30 [facility] 10/19 15:02 Order name: Troponin (emerg Dept Use Only); Complete Time: 16:41 [facility] 10/19 15:02 Order name: XRAY Chest (1 view); Complete Time: 16:14 [facility] 10/19 15:02 Order name: EKG; Complete Time: 15:02 [facility] 10/19 15:06 Order name: CT Head C Spine; Complete Time: 16:14 [facility] 10/19 15:02 Order name: Cardiac monitoring; Complete Time: 15:11 10/19 15:02 Order name: EKG - Nurse/Tech; Complete Time: 15:11 10/19 15:02 Order name: IV Saline Lock; Complete Time: 16:20 10/19 15:02 Order name: Labs collected and sent; Complete Time: 16:20 10/19 15:02 Order name: O2 Per Protocol; Complete Time: 16:20 10/19 15:02 Order name: O2 Sat Monitoring; Complete Time: 16:20 10/19 16:42 Order name: Orthostatics; Complete Time: 17:25 10/19 19:25 Order name: CONS Physician Consult EDMS EC:28 Rate is 62 beats/min. Rhythm is regular, Sinus Rhythm. QRS Aubrey is Normal. IA interval jr8 is normal at 156 msec. QRS interval is normal at 80 msec. QT interval is normal at 384 msec. Q waves are Present in lead aVF. T waves are Inverted in leads V1, V2, V3, V4. ST Segment is depressed in leads V2, V3, V4. Clinical impression: NSR w/ Non-specific ST/T Changes. Interpreted by me. Reviewed by me. Administered Medications: 16:58 Drug: Potassium Chloride 40 mEq Route: PO; ca1 18:42 Follow up: Response: No adverse reaction ca1 17:29 Drug: NS 0.9% 500 ml Route: IV; Rate: bolus; Site: right antecubital; ca1 18:15 Follow up: IV Status: Completed infusion; IV Intake: 500ml ca1 18:16 Drug: NS 0.9% 1000 ml Route: IV; Rate: 75 ml/hr; Site: right antecubital; ca1 18:42 Follow up: Response: No adverse reaction; IV Status: Infusion continued upon admission ca1 Disposition Summary: 10/19/20 17:31 Hospitalization Ordered Hospitalization Status: Observation jr8 Provider: Socrates Stock Location: Telemetry/MedSur (observation) [facility] Condition: Stable [facility] Problem: new jr8 Symptoms: have improved jr8 Bed/Room Type: Standard [facility] Room Assignment: 210(10/19/20 19:53) mw Diagnosis - Syncope jr8 - Orthostatic hypotension jr8 - Abnormal electrocardiogram [ECG] [EKG] [facility] Forms: - Medication Reconciliation Form jr8 - SBAR form 8 Addendum: 10/22/2020 13:30 Co-signature as Attending Physician, Kevin Ordonez MD I agree with the assessment and k dr plan of care. Signatures: Dispatcher [employer] EDMS Myranda Jacobson RN RN Kevin Ordonez MD MD [facility] Arturo Dennis PA PA jr8 Ena Craft RN RN ca1 Corrections: (The following items were deleted from the chart) 10/19 15:10 15:02 Head Brain Wo Cont+CT.RAD.BRZ ordered. EDPA EDMS 19:53 17:31 jrElvi
[2020-10-19] MEDS ORDERED: NA CHLORIDE 0.9% 1,000 ML IV SCH (20:20)
[2020-10-19] MEDS ORDERED: ONDANSETRON 4 MG/2 ML VIAL IV PRN (20:20)
--- NOTE | 2020-10-19 22:49 | P.HP ---
Certification for Inpatient Patient admitted to: Observation With expected LOS: <2 Midnights Patient will require the following post-hospital care: None Practitioner: I am a practitioner with admitting privileges, knowledge of patient current condition, hospital course, and medical plan of care. Services: Services provided to patient in accordance with Admission requirements found in Title 42 Section 412.3 of the Code of Federal Regulations Patient History Date of Service: 10/19/20 Reason for admission: syncope, fall History of Present Illness: Ms. Calabrese is a 80 yo F with GERD, fibromyalgia, lymphedema, depression here today for syncope and collapse. She said she stood up from chair and walked across the room. When she was almost across the room she felt dizzy and had tonnel vision. She felt the blood rushing to her brain, and then the next thing she remembers is waking up on her back. She said she lost consciousness for a few seconds. Denies chest pain, SOB ,palpitations. Orthostatic VS positive in the ED, troponin negative, abnormal EKG. K 3.2. Imaging wnl. Allergies clindamycin HCl [From Cleocin] Allergy (Severe, Verified 10/19/20 20:52) Hives/Rash clindamycin palmitate HCl [From Cleocin] Allergy (Severe, Verified 10/19/20 20:52) Hives/Rash clindamycin phosphate [From Cleocin] Allergy (Severe, Verified 10/19/20 20:52) Hives/Rash Penicillins Allergy (Severe, Verified 10/19/20 20:52) Hives/Rash Sulfa (Sulfonamide Antibiotics) [Sulfa(Sulfonamide Antibiotics)] Allergy (Severe, Verified 10/19/20 20:52) Hives/Rash acetaminophen [From Darvocet-N 100] Allergy (Verified 10/19/20 20:52) Unknown propoxyphene [From Darvocet-N 100] Allergy (Verified 10/19/20 20:52) Unknown strawberries Allergy (Severe, Uncoded 07/11/20 05:19) Hives/Rash Home Medications: Simvastatin 40 mg PO BEDTIME 08/05/11 Memantine HCl 10 mg PO BID 01/11/18 Metoprolol Succinate [Toprol Xl*] 25 mg PO DAILY 12/16/18 Gabapentin 300 mg PO TID 05/25/19 Pantoprazole Sodium [Protonix] 1 tab PO DAILY 02/04/20 Topiramate [Topamax] 200 mg PO BID 02/04/20 ALPRAZolam [Xanax*] 0.25 mg PO Q12HP PRN 07/11/20 Hydrocodone 7.5/APAP 325 [[place] 7.5/325 mg*] 1 tab PO Q8HP PRN 07/11/20 Magnesium Oxide 1 tab PO DAILY 07/11/20 Tizanidine HCl [Zanaflex] 4 mg PO DAILYPRN PRN 07/11/20 Benzonatate 200 mg PO Q8HP PRN 10/19/20 Bupropion *Xl* [Wellbutrin XL] 150 mg PO DAILY 10/19/20 Bupropion *Xl* [Wellbutrin XL] 300 mg PO DAILY 10/19/20 Clopidogrel Bisulfate [Plavix] 75 mg PO DAILY 10/19/20 Cranberry Fruit Extract [Ellura] 200 mg PO DAILY 10/19/20 Donepezil HCl 10 mg PO BEDTIME 10/19/20 Doxepin HCl 50 mg PO BEDTIME 10/19/20 Duloxetine HCl 60 mg PO BID 10/19/20 Fluticasone/Umeclidin/Vilanter [Trelegy Ellipta 100-62.5-25] 1 each IH DAILY 10/19/20 Indapamide [Lozol] 2.5 mg PO DAILY 10/19/20 Levothyroxine [Synthroid] 75 mcg PO [id number] 10/19/20 Mupirocin Oint [Bactroban 2% Ointment] 1 appl TP BID 10/19/20 Potassium Chloride 20 meq PO BID 10/19/20 Quetiapine Fumarate [Seroquel] 200 mg PO BEDTIME 10/19/20 - Past Medical/Surgical History Diabetic: No -: Lymphedema -: heart arrhythmia w/ PVCs -: L breast cancer -: PE -: Meniere's Disease -: Former smoker -: Recurrent UTIs -: Fibromyalgia -: GERD -: Insomnia -: Depression -: Neuropathy -: s/p Left Mastectomy -: PATIENCE TKA -: Cervical fusion -: Lumbar fusion -: Appendectomy -: Hysterectomy - Family History Father -: Diabetes Notes: heart attack. alcoholic - Social History Smoking Status: Never smoker Alcohol use: No CD- Drugs: No Caffeine use: No Place of Residence: [place] Review of Systems Eyes: Vision Change Neurological: As per HPI Physical Examination - Vital Signs Temperature: 97.6 F Blood Pressure: 99/64 Pulse: 78 Respirations: 18 Pulse Ox (%): 96 - Physical Exam General: Alert, In no apparent distress HEENT: Atraumatic, PERRLA, Mucous membr. moist/pink, EOMI, Sclerae nonicteric Neck: Supple, 2+ carotid pulse no bruit, No LAD, Without JVD or thyroid abnormality Respiratory: Clear to auscultation bilaterally, Normal air movement Cardiovascular: Regular rate/rhythm, Normal S1 S2 Gastrointestinal: Normal bowel sounds, No tenderness Musculoskeletal: No tenderness Integumentary: No rashes Neurological: Normal speech, Normal strength at 5/5 x4 extr, Normal tone, Normal affect Lymphatics: No axilla or inguinal lymphadenopathy - Studies Laboratory Data (last 24 hrs) 10/19/20 16:07: PT 11.1, INR 0.97 10/19/20 16:07: WBC 8.60, Hgb 15.5 H, Hct 45.7 H, Plt Count 257 10/19/20 16:07: Sodium 140, Potassium 3.2 L, BUN 22 H, Creatinine 1.30, Glucose 91, Magnesium 2.3, Total Bilirubin 0.4, AST 20, ALT 32, Alkaline Phosphatase 93 Assessment and Plan - Problems (Diagnosis) (1) Syncope Current Visit: Yes Status: Acute Qualifiers: Syncope type: unspecified Qualified Code(s): R55 - Syncope and collapse (2) Fall Current Visit: Yes Status: Acute Qualifiers: Encounter type: initial encounter Qualified Code(s): W19.XXXA - Unspecified fall, initial encounter (3) Depression Current Visit: No Status: Acute Qualifiers: Depression Type: unspecified Qualified Code(s): F32.9 - Major depressive disorder, single episode, unspecified (4) Hypokalemia Current Visit: No Status: Acute (5) Fibromyalgia Current Visit: No Status: Chronic (6) Orthostatic hypotension Current Visit: Yes Status: Acute - Plan cardiology consulted on telemetry continue IVF EKG in the AM, ECHO pending, repeat orthostatic VS in the AM potassium replacement protocol DVT ppx reconcile and continue home medications Discharge Plan: Long-Term Plan to discharge in: 24 Hours - Advance Directives Does patient have a Living Will: No Does patient have a Durable POA for Healthcare: Yes - Code Status/Comfort Care Code Status Assessed: Yes (full code ) Critical Care: No Time Spent Managing Pts Care (In Minutes): 70
[2020-10-19 23:08] VITALS: BMI 37.2
[2020-10-20 01:13] LABS: Urine Appearance CLEAR (Clear); Urine Bilirubin NEGATIVE (Negative); Urine Blood NEGATIVE (Negative); Urine Color YELLOW (Yellow); Urine Glucose NEGATIVE (Negative); Urine Protein NEGATIVE (Negative); Urine Urobilinogen 0.2 mg/dL (0.2-1.0)
[2020-10-20 01:17] LABS: Urine Microscopic Reflex ORDER UMIC
[2020-10-20 01:29] LABS: Urine Bacteria >50 /HPF (<20); Urine RBC <5 /HPF (NONE SEEN); Urine Yeast FEW (NONE SEEN)
[2020-10-20] MEDS ORDERED: MELATONIN 5 MG TABLET PO PRN (01:36)
[2020-10-20] MEDS ORDERED: CEFTRIAXONE 1 GM/NS 50 ML 1 GM/50 ML BAG IV SCH (01:46)
[2020-10-20] MEDS: GABAPENTIN 300 MG CAP PO SCH ×3 (01:49→14:27)
[2020-10-20] MEDS: MORPHINE 2 MG/ML SYR IV PRN ×2 (01:50→09:58)
[2020-10-20] MEDS: CEFTRIAXONE/SWI 1gm 1 GM/10 ML SYR IV SCH ×2 (02:03→09:16)
[2020-10-20] MEDS: NA CHLORIDE 0.9% 1,000 ML IV SCH ×3 (09:18→14:27)
[2020-10-20 09:43] VITALS: O2SAT 92
--- NOTE | 2020-10-20 10:27 | EKG ---
Test Date: 2020-10-19 Test Time: 15:02:50 Record Keeper: YOGI MEASUREMENT RESULTS: Intervals: Rate: 62 NJ: 156 QRSD: 80 QT: 384 QTc: 389 Minto: P: 65 NJ: 156 QRS: 45 T: 67 INTERPRETIVE STATEMENTS: Normal sinus rhythm ST & T wave abnormality, consider anterior ischemia Abnormal ECG Compared to ECG 08/29/2020 09:38:43 Possible ischemia now present Sinus bradycardia no longer present ST (T wave) deviation still present Electronically Signed On 10-20-20 10:25:39 CDT by Luis Reveles
--- NOTE | 2020-10-20 11:51 | CON ---
Date of Consultation: 10/20/[address] Stock on 10/19/2020. Reason For Consultation: Syncope. History Of Present Illness: Ms. Calabrese is a 80-year-old white woman with an extensive list of medic ations and extensive past medical history who came in with syncope. She knew she was going to pass o ut. She got dizzy and lightheaded before she fainted. Denied any chest pain, nausea, vomiting, diap horesis, PND, orthopnea, or pedal edema. Denied any fever or chills or cough. Workup so far include s a creatinine of 1.3, potassium 3.2. Negative troponin. CT of her head and spine were negative. C hest x-ray was negative, but she was hypotensive, and hypokalemic with a potassium of 3.2. Allergies: SULFA, PENICILLIN, AND CLINDAMYCIN. Past Medical History: Include depression, fibromyalgia, gastroesophageal reflux disease, palpitation s with PVCs, lymphedema, insomnia, hypertension, COPD, anxiety, dementia, neuropathy, hypothyroidism, chronic pain syndrome managed with a pain pump, and Meniere disease. Review of Systems: Negative. Social History: Negative. Family History: Unremarkable. Medications: At home include Xanax, Wellbutrin, benazepril, Plavix, Neurontin, inhalers, metoprolol, Protonix, Zocor, potassium, Seroquel, Lozol, Synthroid, Topamax, magnesium, and memantine. Physical Examination: Vital Signs: When I saw her, her vital signs were stable. She was afebrile. HEENT: Negative. Neck: Supple without any bruit, lymphadenopathy, JVD, or thyromegaly. Chest: Clear to auscultation and percussion. Cardiac: Exam revealed a regular rhythm and rate. No murmurs, gallops, or rubs. Abdomen: Obese, but benign. Extremities: Revealed no clubbing, cyanosis, or edema. Skin: Dry and intact. Pulses were present distally. Neurological: She was nonfocal. Impression And Plan: 1.Orthostatic hypotension. 2.Hypokalemia. I am comfortable with supplementing the potassium, hydrate her and I would send her home, have her increase her salt intake. When she stops the metoprolol or decreases that, she has a lot of palpitations, and she will keep that dose. When she stops the Lozol, she has attacks of Menie re disease, so we will keep the Lozol as well at the same dose. She takes a very extensive list of p ain medications for multiple purposes, and that should be addressed by her primary care physician and hopefully decrease some of those. From my standpoint, she can go home, and [facility]. No reason to keep her in the hospital at this point. Her problems includin g hypertension, COPD, depression, fibromyalgia, PVCs, insomnia, gastroesophageal reflux disease, reymundo ntia, hypothyroidism, neuropathy are stable at this point. KAREN/RADHA Voice ID: [id number] Report ID: [id number]
--- NOTE | 2020-10-20 12:06 | P.DS ---
Admission Date: 10/19/20 Discharge Date: 10/20/20 Disposition: ROUTINE DISCHARGE Discharge Condition: FAIR Reason for Admission: syncope, fall - Problems (1) Orthostatic hypotension Current Visit: Yes Status: Acute (2) Fall Current Visit: Yes Status: Acute Qualifiers: Encounter type: initial encounter Qualified Code(s): W19.XXXA - Unspecified fall, initial encounter (3) Menieres disease Current Visit: Yes Status: Acute (4) PVCs (premature ventricular contractions) Current Visit: Yes Status: Acute (5) Syncope Current Visit: Yes Status: Acute Qualifiers: Syncope type: unspecified Qualified Code(s): R55 - Syncope and collapse (6) Depression Current Visit: No Status: Acute Qualifiers: Depression Type: unspecified Qualified Code(s): F32.9 - Major depressive disorder, single episode, unspecified (7) Fibromyalgia Current Visit: No Status: Chronic (8) Morbid obesity Current Visit: No Status: Chronic Brief History of Present Illness: 80 yo woman with GERD, fibromyalgia, lymphedema, depression presented to the emergency department for syncope and collapse. She said she stood up from chair and walked across the room. She done felt dizzy, had tunnel vision, blackout and fell. She lost consciousness for a few seconds. Denied chest pain, SOB, or palpitations. Orthostatic vitals were positive in the ED. Troponin negative. Patient placed under observation for monitoring. Hospital Course: Patient started on IV normal saline for hydration. He is on metoprolol and indapamide. Metoprolol for PVCs and indapamide for Meniere's disease. Her systolic blood pressure ranged from the 90s to 110. Patient seen by cardiology- Dr. Reveles who recommended to continue the metoprolol and indapamide and advised no salt restriction. She has been told orthostatic precautions. She may compression stockings sugar blood pressure remained low at home. Vital Signs/Physical Exam: Temp Pulse Resp BP Pulse Ox 97.2 F 57 17 105/52 L 96 10/20/20 08:00 10/20/20 08:00 10/20/20 10:28 10/20/20 08:00 10/20/20 10:28 General: Alert, In no apparent distress, Oriented x3 HEENT: Atraumatic, Normocephalic, PERRLA, Mucous membr. moist/pink Neck: JVD not distended Respiratory: Clear to auscultation bilaterally, Normal air movement Cardiovascular: No edema, Regular rate/rhythm, Normal S1 S2 Capillary refill: <2 Seconds Gastrointestinal: Normal bowel sounds, Soft and benign, Non-distended, No tenderness Musculoskeletal: No swelling Integumentary: No rashes Neurological: Normal speech, Normal strength at 5/5 x4 extr, Cranial nerves 3-12 intact Laboratory Data at Discharge: WBC 8.60 K/uL (4.3-10.9) 10/19/20 16:07 Hgb 15.5 g/dL (12.0-15.0) H 10/19/20 16:07 Hct 45.7 % (36.0-45.0) H 10/19/20 16:07 Plt Count 257 K/uL (152-406) 10/19/20 16:07 PT 11.1 SECONDS (9.5-12.5) 10/19/20 16:07 INR 0.97 10/19/20 16:07 Sodium 140 mmol/L (136-145) 10/19/20 16:07 Potassium 3.2 mmol/L (3.5-5.1) L 10/19/20 16:07 BUN 22 mg/dL (7-18) H 10/19/20 16:07 Creatinine 1.30 mg/dL (0.55-1.3) 10/19/20 16:07 Glucose 91 mg/dL (74-106) 10/19/20 16:07 Magnesium 2.3 mg/dL (1.8-2.4) 10/19/20 16:07 Total Bilirubin 0.4 mg/dL (0.2-1.0) 10/19/20 16:07 AST 20 U/L (15-37) 10/19/20 16:07 ALT 32 U/L (12-78) 10/19/20 16:07 Alkaline Phosphatase 93 U/L (45-117) 10/19/20 16:07 Home Medications: Simvastatin 40 mg PO BEDTIME 08/05/11 Memantine HCl 10 mg PO BID 01/11/18 Metoprolol Succinate [Toprol Xl*] 25 mg PO DAILY 12/16/18 Gabapentin 300 mg PO TID 05/25/19 Pantoprazole Sodium [Protonix] 1 tab PO DAILY 02/04/20 Topiramate [Topamax] 200 mg PO BID 02/04/20 ALPRAZolam [Xanax*] 0.25 mg PO Q12HP PRN 07/11/20 Hydrocodone 7.5/APAP 325 [[place] 7.5/325 mg*] 1 tab PO Q8HP PRN 07/11/20 Magnesium Oxide 1 tab PO DAILY 07/11/20 Tizanidine HCl [Zanaflex] 4 mg PO DAILYPRN PRN 07/11/20 Benzonatate 200 mg PO Q8HP PRN 10/19/20 Bupropion *Xl* [Wellbutrin XL*] 300 mg PO DAILY 10/19/20 Clopidogrel Bisulfate [Plavix*] 75 mg PO DAILY 10/19/20 Cranberry Fruit Extract [Ellura] 200 mg PO DAILY 10/19/20 Donepezil HCl 10 mg PO BEDTIME 10/19/20 Doxepin HCl 50 mg PO BEDTIME 10/19/20 Duloxetine HCl 60 mg PO BID 10/19/20 Fluticasone/Umeclidin/Vilanter [Trelegy Ellipta 100-62.5-25] 1 each IH DAILY 10/19/20 Indapamide [Lozol] 2.5 mg PO DAILY 10/19/20 Levothyroxine [Synthroid*] 75 mcg PO [id number] 10/19/20 Mupirocin Oint [Bactroban 2% Ointment*] 1 appl TP BID 10/19/20 Potassium Chloride 20 meq PO BID 10/19/20 Quetiapine Fumarate [Seroquel] 200 mg PO BEDTIME 10/19/20 Physician Discharge Instructions: Orthostatic precautions. Diet: AHA Activity: Fall precautions Followup: Jerry Torres MD [Primary Care Provider] - Time spent managing pt's care (in minutes): 33
[2020-10-20 16:32] VITALS: BP 126/58; TEMP 97.5
== END 2020-10-20 17:29 | disposition home or self-care (01) ==
LOC: ER 14:49 → 2ND 20:11 → INTOOBSV 20:11
PROVIDERS: ADMIT Internal Medicine; ATTEND Internal Medicine
DX: I95.1 Orthostatic hypotension (principal); F32.9 Major depressive disorder, single episode, unspecified; M79.7 Fibromyalgia; E66.01 Morbid (severe) obesity due to excess calories; H81.09 Meniere's disease, unspecified ear; I49.3 Ventricular premature depolarization; K21.9 Gastro-esophageal reflux disease without esophagitis; G47.00 Insomnia, unspecified; I10 Essential (primary) hypertension; J44.9 Chronic obstructive pulmonary disease, unspecified; F41.9 Anxiety disorder, unspecified; F03.90 Unspecified dementia, unspecified severity, without behavioral disturbance, psychotic disturbance, mood disturbance, and anxiety; G62.9 Polyneuropathy, unspecified; E03.9 Hypothyroidism, unspecified; G89.4 Chronic pain syndrome; E87.6 Hypokalemia; Z85.3 Personal history of malignant neoplasm of breast; Z86.711 Personal history of pulmonary embolism; Z87.891 Personal history of nicotine dependence; Z96.653 Presence of artificial knee joint, bilateral; Z68.37 Body mass index [BMI] 37.0-37.9, adult
CPT/HCPCS: 93005; 87088; 85025; 87086; 80048; 36415; 83735; 85610; 80076; 84484; 83880 ×2; 70450; 72125; 71045; 97161; 94760 ×2; 96360; 99285; J2270 ×2; J0696; J7030 ×2; G0378 ×3; 81003; 81015

== ENCOUNTER 2020-10-27 03:51 | Emergency (ER) | payer OTHER ==
--- OUTSIDE RECORDS SUMMARY | 2020-10-27 03:55 | XMS REPORT | Continuity of Care Document ---
:1940 Author Organization [facility] t Address [address] [place] [address] Care Team Providers Name Role Phone Farhat HOLT Primary Care Physician Hilton HOLT Attending Clinician Payers Payer Name Policy Type Policy Effective Date Expiration Date Sour ce Number AETNA MEDICAREAETNA [id number] 2013 [place] MEDICARE HMO/PPO 00:00:00 Methodis t [id number] -PresentHMO Problems This patient has no known [...] Date Stop Date Source Natural father Diabetes [facility] Natural father Heart disease [facility] Natural father Hypertension [place] [facility] Natural mother Asthma [facility] Social History Social Habit Start Date Stop Date Quantity Comments Source History of tobacco Current smoker [facility] use History [facility] Alcohol Std Drinks History [facility] Alcohol Binge Cigarettes smoked 2019-10-18 2019-10-18 [facility] current (pack per 00:00:00 00:00:00 day) - Reported Cigarette 2019-10-18 2019-10-18 [facility] pack-years 00:00:00 00:00:00 Tobacco use and 2019-10-18 2019-10-18 Never used [facility] exposure 00:00:00 00:00:00 Alcohol intake 2019-10-18 2019-10-18 Lifetime [facility] [place] 00:00:00 00:00:00 non-drinker (finding) History SDOH 2019-10-18 2019-10-18 1 [place] [facility] Alcohol Frequency 00:00:00 00:00:00 Sex Ass[birth year] At [birth year] [facility] [place] [facility] 00:00:00 00:00:00 Smoking Status Start Date Stop Date Source Former smoker 2019-10-18 00:00:00 2019-10-18 00:00:00 [place] [facility] Medications This patient has no known medications. Procedures Procedure Date / Time Performed Performing Clinician [facility] e ID EXTERNAL STUDY EXAM 2019-12-09 11:20:00 Renan Keita on [facility] Plan of Care Planned Activity Planned Date Details Comments Source Future Scheduled 2020-11-18 INFLUENZA VACCINE Luis Miguel harris [facility] Test 00:00:00 [code = INFLUENZA VACCINE] Future Scheduled 2006 65+ PNEUMOCOCCAL [place] [facility] Test 00:00:00 VACCINE (1 of 1 - PPSV23) [code = 65+ PNEUMOCOCCAL VACCINE (1 of 1 - PPSV23)] Future Scheduled 1991 SHINGLES VACCINES (#1) H khris [facility] Test 00:00:00 [code = SHINGLES VACCINES (#1)] Future Scheduled 1959 Hepatitis C screening jagruti [facility] Test 00:00:00 (procedure) [code = 178266662] Encounters Start End Encounter Admission Attending Care Care Encounter Source Date/Time Date/Time Type Type Clinicians Facility Department ID 2020-08-27 2020-08-27 Outpatient KEITA, [facility] [id number] [place] 00:00:00 00:00:00 RENAN [address] 2020-07-03 2020-07-03 Outpatient KEITA, [facility] [id number] [place] 00:00:00 00:00:00 RENAN [address] 2019-10-18 2019-10-18 Outpatient KEITA, [facility] [id number] [place] 00:00:00 00:00:00 RENAN [id number] 2019-10-18 2019-10-18 Outpatient KEITA, [facility] [id number] [place] 00:00:00 00:00:00 RENAN [address] Results Test Description Test Time Test Comments Results Result [facility] e Comments [place] External Study 2020-08-27 This exam was not Green Exam 08:55:15 acquired at a [facility] Catholic [facility] facility and has not been interpreted by a Roman Catholic Provider. The exam was imported into our imaging system.
[2020-10-27] MEDS ORDERED: HYDROCODONE/APAP 7.5/325 MG TAB ONE (04:52)
--- NOTE | 2020-10-27 06:58 | ER ---
Nurse's Notes [facility] Name: Agnes Calabrese Age: 80 yrs Sex: Female : 1940 Arrival Date: 10/27/2020 Time: 03:55 Bed 20 Private MD: Diagnosis: Fall-Mechanical;Distal Radius Fracture, Ulnar Styloid Fracture, Right Presentation: 10/27 03:55 Chief complaint: EMS states: was using the restroom and lost balance, reports pain to em right forearm and abrasion to the right knee, denies LOC or hitting head. Coronavirus screen: Client denies travel out of the [place] in the last 14 days. Ebola Screen: Patient negative for fever greater than or equal to 101.5 degrees Fahrenheit, and additional compatible Ebola Virus Disease symptoms Patient denies exposure to infectious person. Patient denies travel to an Ebola-affected area in the 21 days before illness onset. No symptoms or risks identified at this time. Initial Sepsis Screen: Does the patient meet any 2 criteria? No. Patient's initial sepsis screen is negative. Does the patient have a suspected source of infection? No. Patient's initial sepsis screen is negative. Risk Assessment: Do you want to hurt yourself or someone else? Patient reports no desire to harm self or others. Onset of symptoms was October 27, 2020. 03:55 Method Of Arrival: EMS: [facility] em 03:55 Acuity: WARREN 3 em Historical: - Allergies: 03:57 Strawberries; em 03:57 PENICILLINS; em 03:57 Sulfa (Sulfonamide Antibiotics); em 03:57 Darvocet-N 100; em 03:57 clindamycin HCl (bulk); em - PMHx: 03:57 Cancer; Fibromyalgia; insomnia; lymphedema; GERD; skipped heart beats; Depression; em - Immunization history:: Adult Immunizations up to date. - Social history:: Smoking status: Patient denies any tobacco usage or history of. Screenin:02 Abuse screen: Denies threats or abuse. Nutritional screening: No deficits noted. rr5 Tuberculosis screening: No symptoms or risk factors identified. Fall Risk Fall in past 12 months (25 points). Assessment: 04:12 General: Appears in no apparent distress. uncomfortable, Behavior is calm, cooperative, jm8 appropriate for age. Pain: Complains of pain in right arm Pain currently is 10 out of 10 on a pain scale. Neuro: No deficits noted. Level of Consciousness is awake, alert, obeys commands, Oriented to person, place, time. Cardiovascular: No deficits noted. Respiratory: No deficits noted. Airway is patent Trachea midline Respiratory effort is even, unlabored, Respiratory pattern is regular, symmetrical. GI: No deficits noted. No signs and/or symptoms were reported involving the gastrointestinal system. : No deficits noted. No signs and/or symptoms were reported regarding the genitourinary system. EENT: No deficits noted. No signs and/or symptoms were reported regarding the EENT system. Derm: No deficits noted. No signs and/or symptoms reported regarding the dermatologic system. Musculoskeletal: Reports pain in right arm. 07:00 General: Appears in no apparent distress. Behavior is calm, cooperative. Neuro: Level rb3 of Consciousness is awake, alert, obeys commands, Oriented to person, place, time. Cardiovascular: Patient's skin is warm and dry. Respiratory: Airway is patent Respiratory effort is even, unlabored, Respiratory pattern is regular, symmetrical. GI: No signs and/or symptoms were reported involving the gastrointestinal system. : No signs and/or symptoms were reported regarding the genitourinary system. Vital Signs: 03:55 BP 139 / 76; Pulse 64; Resp 16; Temp 99.4; Pulse Ox 94% on R/A; em 07:00 BP 131 / 78; Pulse 61; Resp 16; Pulse Ox 96% on R/A; jm8 ED Course: 03:55 Patient arrived in ED. em 03:57 Triage completed. em 03:57 Arm band placed on. em 04:02 Patient has correct armband on for positive identification. Bed in low position. Call rr5 light in reach. Side rails up X2. 04:03 Obdulio Albarado MD is Attending Physician. mh7 06:13 Forearm Right XRAY In Process Unspecified. EDMS 06:56 Stefan Bronw MD is Referral Physician. mh7 07:21 No provider procedures requiring assistance completed. Patient did not have IV access rb3 during this emergency room visit. Administered Medications: 04:32 Drug: Story (HYDROcodone-acetaminophen) (7.5 mg-325 mg) 1 tabs Route: PO; em 06:40 Follow up: Response: No adverse reaction jm8 Outcome: 06:57 Discharge ordered by . fernando 07:21 Discharged to home via wheelchair, with family. rb3 07:21 Condition: stable 07:21 Discharge instructions given to family, Instructed on discharge instructions, follow up and referral plans. Demonstrated understanding of instructions, follow-up care, Prescriptions given X none 07:22 Patient left the ED. rb3 Signatures: Dispatcher [employer] EDJose Rafael Angel RN RN em Roque, Raymond, RN RN julio [email or web address] Obdulio Albarado MD MD 7 Cheryl Canela RN RN rb3 Socrates Jesus RN RN jm8
--- NOTE | 2020-10-27 06:58 | EDPHYS ---
Physician Documentation [facility] Name: Agnes Calabrese Age: 80 yrs Sex: Female : 1940 Arrival Date: 10/27/2020 Time: 03:55 Bed 20 Private MD: ED Physician Obdulio Albarado HPI: 10/27 06:10 This 80 yrs old Female presents to ER via EMS with complaints of Fall. mh7 06:10 Details of fall: The patient fell from an upright position, while walking. Onset: The mh7 symptoms/episode began/occurred just prior to arrival, today. Associated injuries: The patient sustained right forearm, painful injury. Severity of symptoms: At their worst the symptoms were moderate, earlier today, in the emergency department the symptoms are unchanged. 06:31 States that she fell due to losing her balance when trying to take off her diaper. mh7 Denies any head injury or LOC. Denies any symptoms prior to fall.. Historical: - Allergies: 03:57 Strawberries; em 03:57 PENICILLINS; em 03:57 Sulfa (Sulfonamide Antibiotics); em 03:57 Darvocet-N 100; em 03:57 clindamycin HCl (bulk); em - PMHx: 03:57 Cancer; Fibromyalgia; insomnia; lymphedema; GERD; skipped heart beats; Depression; em - Immunization history:: Adult Immunizations up to date. - Social history:: Smoking status: Patient denies any tobacco usage or history of. ROS: 06:10 Constitutional: Negative for fever, chills, and weight loss, Eyes: Negative for injury, mh7 pain, redness, and discharge, ENT: Negative for injury, pain, and discharge, Neck: Negative for injury, pain, and swelling, Cardiovascular: Negative for chest pain, palpitations, and edema, Respiratory: Negative for shortness of breath, cough, wheezing, and pleuritic chest pain, Abdomen/GI: Negative for abdominal pain, nausea, vomiting, diarrhea, and constipation, Back: Negative for injury and pain, : Negative for injury, bleeding, discharge, and swelling, Skin: Negative for injury, rash, and discoloration, Neuro: Negative for headache, weakness, numbness, tingling, and seizure, Psych: Negative for depression, anxiety, suicide ideation, homicidal ideation, and hallucinations, Allergy/Immunology: Negative for hives, rash, and allergies, Endocrine: Negative for neck swelling, polydipsia, polyuria, polyphagia, and marked weight changes, Hematologic/Lymphatic: Negative for swollen nodes, abnormal bleeding, and unusual bruising. Exam: 06:10 Constitutional: This is a well developed, well nourished patient who is awake, alert, mh7 and in no acute distress. Head/Face: Normocephalic, atraumatic. Eyes: Pupils equal round and reactive to light, extra-ocular motions intact. Lids and lashes normal. Conjunctiva and sclera are non-icteric and not injected. Cornea within normal limits. Periorbital areas with no swelling, redness, or edema. ENT: Nares patent. No nasal discharge, no septal abnormalities noted. Tympanic membranes are normal and external auditory canals are clear. Oropharynx with no redness, swelling, or masses, exudates, or evidence of obstruction, uvula midline. Mucous membranes moist. Neck: Trachea midline, no thyromegaly or masses palpated, and no cervical lymphadenopathy. Supple, full range of motion without nuchal rigidity, or vertebral point tenderness. No Meningismus. Chest/axilla: Normal chest wall appearance and motion. Nontender with no deformity. No lesions are appreciated. Cardiovascular: Regular rate and rhythm with a normal S1 and S2. No gallops, murmurs, or rubs. Normal PMI, no JVD. No pulse deficits. Respiratory: Lungs have equal breath sounds bilaterally, clear to auscultation and percussion. No rales, rhonchi or wheezes noted. No increased work of breathing, no retractions or nasal flaring. Abdomen/GI: Soft, non-tender, with normal bowel sounds. No distension or tympany. No guarding or rebound. No evidence of tenderness throughout. Back: No spinal tenderness. No costovertebral tenderness. Full range of motion. Skin: Warm, dry with normal turgor. Normal color with no rashes, no lesions, and no evidence of cellulitis. 06:10 Neuro: Awake and alert, GCS 15, oriented to person, place, time, and situation. Cranial nerves II-XII grossly intact. Motor strength 5/5 in all extremities. Sensory grossly intact. Cerebellar exam normal. Normal gait. Psych: Awake, alert, with orientation to person, place and time. Behavior, mood, and affect are within normal limits. 06:10 Musculoskeletal/extremity: Extremities: noted in the right forearm: pain, tenderness, ROM: limited active range of motion due to pain, in the right forearm, limited passive range of motion due to pain, in the right forearm, Circulation is intact in all extremities. Sensation intact. Compartment Syndrome exam of affected extremity: is normal. no numbness, no tingling, no sensation deficit, no palor, no weak pulses, Joints: the right wrist displays painful range of motion, tenderness, Weight bearing: able to fully bear weight, without difficulty, Tendon exam: specific tendon testing normal through active and passive range of motion Vital Signs: 03:55 BP 139 / 76; Pulse 64; Resp 16; Temp 99.4; Pulse Ox 94% on R/A; em 07:00 BP 131 / 78; Pulse 61; Resp 16; Pulse Ox 96% on R/A; 8 Procedures: 07:00 Splinting: Splint applied to right forearm using Orthoglass splint, sling, applied by [facility] nurse. Examined by me, post splint application: neurovascular intact, 2+ distal pulses palpable, brisk capillary refill noted, Patient tolerated well. MDM: 06:55 Differential diagnosis: abrasion, contusion, fracture. Data reviewed: vital signs, [facility] nurses notes, EMS record, prison records, radiologic studies, plain films. Counseling: I had a detailed discussion with the patient and/or guardian regarding: the historical points, exam findings, and any diagnostic results supporting the discharge/admit diagnosis, radiology results, the need for outpatient follow up, a orthopedic surgeon, to return to the emergency department if symptoms worsen or persist or if there are any questions or concerns that arise at home. Response to treatment: the patient's symptoms have markedly improved after treatment. 06:57 Patient medically screened. [facility] 10/27 04:00 Order name: Forearm Right XRAY 10/27 06:30 Order name: Sugar Tong Forearm Splint; Complete Time: 06:40 [facility] 10/27 06:30 Order name: Sling; Complete Time: 06:40 [facility] Administered Medications: 04:32 Drug: [place] (HYDROcodone-acetaminophen) (7.5 mg-325 mg) 1 tabs Route: PO; em 06:40 Follow up: Response: No adverse reaction [facility] Disposition Summary: 10/27/20 06:57 Discharge Ordered Location: Home [facility] Problem: new [facility] Symptoms: have improved [facility] Condition: Stable [facility] Diagnosis - Fall-Mechanical mh7 - Distal Radius Fracture, Ulnar Styloid Fracture, Right mh7 Followup: [facility] - With: Private Physician - When: 1 - 2 days - Reason: Worsening of condition, Recheck today's complaints, Continuance of care, Re-evaluation by your physician Followup: [facility] - With: Stefan Brown MD - When: 2 - 3 days - Reason: Worsening of condition, Recheck today's complaints Discharge Instructions: - Discharge Summary Sheet [facility] - Radial Fracture [facility] - Wrist Fracture Treated With Immobilization, [id number] [facility] - Ulnar Fracture [facility] - Cast or Splint Care, Adult, [facility] Forms: - Medication Reconciliation Form [facility] - Thank You Letter [facility] - Antibiotic Education [facility] - Prescription Opioid Use [facility] Signatures: Dispatcher [employer] Jose Rafael Dawkins RN RN em Holmes, Maurice, MD MD [facility] Socrates Jesus RN [id number]
[2020-10-27 07:26] VITALS: TEMP 99.4
[2020-10-27 07:28] VITALS: BP 131/78; O2SAT 96
--- NOTE | 2020-10-27 10:00 | RAD REPORT ---
EXAM DESCRIPTION: RAD - Forearm Right - 10/27/2020 6:13 am CLINICAL HISTORY: PAIN, fall Images were initially sent to the RxResults service. Due to technical issues, no report was issued. COMPARISON: No comparisons FINDINGS: Transverse fracture is present in the metaphyseal portion of the distal radius with mild i mpaction. Additional fracture line appears to extend to the articular surface. There are small fractu re fragments along the main transverse fracture line. No dislocation or significant angulation deform ity seen. Ulna styloid is fractured. Carpal bones maintain normal positioning to the articular surface No foreign body or other soft tissue abnormality. IMPRESSION: Comminuted distal radius fracture with mild impaction. No significant distraction or ang ulation deformity.
== END 2020-10-27 07:22 | disposition home or self-care (01) ==
LOC: ER 03:51
PROC: 2W3CX1Z Immobilization of Right Lower Arm using Splint (ICD-10-PCS; principal; 2020-10-27)
DX: S52.501A Unspecified fracture of the lower end of right radius, initial encounter for closed fracture (principal); S52.611A Displaced fracture of right ulna styloid process, initial encounter for closed fracture; W19.XXXA Unspecified fall, initial encounter; Z88.0 Allergy status to penicillin; Z88.2 Allergy status to sulfonamides; Z88.3 Allergy status to other anti-infective agents; Z88.5 Allergy status to narcotic agent; Z91.018 Allergy to other foods
CPT/HCPCS: 99284

== ENCOUNTER 2020-12-03 14:25 | Observation (INO) | payer OTHER ==
--- OUTSIDE RECORDS SUMMARY | 2020-12-03 14:29 | XMS REPORT | Continuity of Care Document ---
:1940 Author Organization [facility] t Address [address] [place] [address] [address] [place] [address] Care Team Providers Name Role Phone Farhat HOLT Primary Care Physician Hilton HOLT Attending Clinician Payers Payer Name Policy Type Policy Effective Date Expiration Date Sour ce Number AETNA MEDICAREAETNA [id number] 2013 [place] MEDICARE HMO/PPO 00:00:00 [facility] [id number] -PresentHMO Problems This patient has no known problems. Allergies, Adverse Reactions, Alerts Allergy Allergy Status Severity Reaction(s) Onset Inactive Treating Comm ents Source Name Type Date Date Clinician Propoxyp Propensi Active Unknown 2020-0 [facility] hene ty to Reaction 6-30 st N-Acetam adverse 00:00: Hospita inophen reaction 00 l s to drug Penicill Propensi Active Unknown 2020-0 Meth[facility] di ins ty to Reaction 6-30 st adverse 00:00: Hospita reaction 00 l s to drug Sulfa Propensi Active Unknown 2020-0 [facility] (Sulfona ty to Reaction 6-30 st mide adverse 00:00: Hospita Antibiot reaction 00 l ics) s to drug Acetamin Propensi Active Unknown 2020-0 Meth[facility] di ophen ty to Reaction 6-30 st adverse 00:00: Hospita reaction 00 l s to drug Clindamy Propensi Active Unknown 2020-0 Meth[facility] di jose ty to Reaction 6-30 st Phosphat adverse 00:00: Hospita e reaction 00 l s to drug Family History Family Member Diagnosis Comments Start Date Stop Date Source Natural father Diabetes [facility] Natural father Heart disease [facility] Natural mother Asthma [facility] Social History Social Habit Start Date Stop Date Quantity Comments Source History of tobacco Current smoker [facility] SD[facility] History SDTN [facility] Cigarettes smoked 2019-10-18 2019-10-[address] current (pack per 00:00:00 00:00:00 Hospita l day) - Reported Cigarette 2019-10-18 2019-10-18 [facility] pack-[facility] 00:[facility]:00 Hospital Tobacco use and 2019-10-18 2019-10-18 Never used [facility] exposure 00:00:00 [facility]:00:00 Hospital Alcohol intake 2019-10-18 2019-10-18 Lifetime [facility] 00:00:00 00:00:00 non-drinker Hospital (finding) History SDOH 2019-10-18 2019-10-18 1 [facility] Frequency 00:00:00 00:00:00 Hospita l Sex Assigned At [birth year] [facility] 00:[facility] Smoking Status Start Date Stop Date Source Former smoker 2019-10-18 00:00:00 2019-10-18 00:00:00 [facility] Medications This patient has no known medications. Procedures Procedure Date / Time Performed Performing Clinician Sour e [place] EXTERNAL STUDY EXAM 2019-12-09 16:20:00 CanelaRenan [facility] Plan of Care Planned Activity Planned Date Details Comments Source Future Scheduled Test Hepatitis C screening [facility] (procedure) [code = 652816021] Future Scheduled Test SHINGLES VACCINES (#1) [facility] [code = SHINGLES VACCINES (#1)] Future Scheduled Test 65+ PNEUMOCOCCAL [facility] VACCINE (1 of 1 - PPSV23) [code = 65+ PNEUMOCOCCAL VACCINE (1 of 1 - PPSV23)] Future Scheduled Test INFLUENZA VACCINE [code [facility] = INFLUENZA VACCINE] Encounters Start End Encounter Admission Attending Care Care Encounter Source Date/Time Date/Time Type Type Clinicians Facility Department ID 2020-08-27 2020-08-27 [facility] [id number] [facility] 08:36:31 23:59:00 Encounter Renan [id number] [id number] Hospit a .[id number] l .8 2020-08-27 2020-08-27 Outpatient [facility], [facility] [id number] [address] 00:00:00 00:00:00 RENAN [address] 2020-07-03 2020-07-03 Office Hilton, [id number] [id number] [facility] 13:03:28 13:29:49 Visit Renan [id number] 3.430.2.7 Hospit a .[id number] l .8 2020-07-03 2020-07-03 Outpatient H[facility]TON [facility] [id number] [address]ilt 00:00:00 00:00:00 RENAN [address] 2020-07-03 2020-07-03 Travel 1.2.840.1 [id number] [facility] 00:00:00 00:00:[id number] 3.430.2.7 0.2.7.3.698 Ho spita .[id number] 084.8 l .8 2019-10-18 2019-10-18 [id number] Silt 00:00:00 00:00:00 RENAN [address] 2019-10-18 2019-10-18 [facility] [id number] Silt 00:00:00 00:00:00 RENAN [address] Results Test Description Test Time Test Comments Results Result [facility] e Comments [place] External Study 2020-08-27 This exam was not [facility] Exam 13:55:15 acquired at a [facility] facility and has not been interpreted by a [facility] Provider. The exam was imported into our imaging system.
[2020-12-03] MEDS ORDERED: METOPROLOL TARTRATE 5 MG/5 ML INJ IV ONE (15:10)
[2020-12-03 15:32] LABS: Absolute Lymphocytes (CBC) 1.1 K/uL (0.7-4.9); Basophils % 0.7 % (0-1.3); Hematocrit 42.4 % (36.0-45.0); Lymphocytes % 10.4 % (15.3-44.8); MPV 7.7 fL (7.6-11.3); RBC Red Blood Cell Count 4.37 M/uL (3.86-4.86)
[2020-12-03 15:34] LABS: Protime INR 1.07
[2020-12-03 15:55] LABS: ALT/SGPT 18 U/L (12-78); AST/SGOT 17 U/L (15-37); Albumin 2.8 g/dL (3.4-5.0); Alkaline Phosphatase 107 U/L (45-117); BUN Blood Urea Nitrogen 17 mg/dL (7-18); Bicarbonate 24 mmol/L (21-32); Bilirubin Direct 0.1 mg/dL (0-0.2); Bilirubin Total 0.6 mg/dL (0.2-1.0); Glucose Level 102 mg/dL (74-106); Magnesium 1.9 mg/dL (1.8-2.4); NT PRO-BNP 1134 pg/mL (<450); Potassium 4.6 mmol/L (3.5-5.1); Protein, Total 6.5 g/dL (6.4-8.2); Sodium Level 138 mmol/L (136-145); Troponin (Emerg Dept Use Only) < 0.02 ng/mL (0.0-0.045)
--- NOTE | 2020-12-03 16:23 | RAD REPORT ---
EXAM DESCRIPTION: RAD - Chest Single View - 12/03/2020 3:56 pm CLINICAL HISTORY: Afib RVR new COMPARISON: Chest Single View dated 10/19/2020; Chest Single View dated 08/29/2020; Chest Single View d ated 07/10/2020; Chest Single View dated 02/12/2020 FINDINGS: No evidence of edema or pneumonia. The heart size is within normal limits.No acute osseous abnormality. No significant pleural effusions or pneumothorax. Right shoulder arthroplasty. ACDF in the cervical spine IMPRESSION: No acute cardiopulmonary disease.
[2020-12-03] MEDS ORDERED: NA CHLORIDE 0.9% 500 ML ONE ×2 (16:46→17:26)
--- NOTE | 2020-12-03 17:39 | EDPHYS ---
Physician Documentation [facility] Name: Agnes Calabrese Age: 80 yrs Sex: Female : 1940 Arrival Date: 12/03/2020 Time: 14:29 Bed 27 Private MD: ED Physician Rodriguez Berry HPI: 12/03 16:15 This 80 yrs old Female presents to ER via EMS with complaints of weakness \T\ sp3 dizziness. 16:15 Female with a history of hypertension, hypothyroidism, and recent admission for TIA for sp3 which she was discharged on Plavix now presents to the ED from her care facility for generalized malaise and weakness. EMS found patient to be in atrial fibrillation for which she has not had before. Patient's last admission note states regular rhythm. Patient does not have any focal neuro deficits, weakness, memory loss, speech abnormality (which is what she had on her last TIA), patient has not had atrial fibrillation in the past but states she has had PVCs for which she is currently on metoprolol. EMS did not provide any geovani agents due to proximity to the ER and stable patient status. They did document A. fib RVR with a rate of 130 and brief moments but not sustained.. On ROS, patient denies headache, fever, neck pain, chest pain, shortness of breath, abdominal pain, nausea, vomiting, diarrhea, syncope, seizure, neuro symptoms, fever, URI symptoms, or any other abnormality at this time. Patient has received Covid vaccine.. - Immunization history:: Adult Immunizations up to date. - Social history:: Smoking status: Patient denies any tobacco usage or history of. ROS: 16:18 Eyes: Negative for injury, pain, redness, and discharge, ENT: Negative for injury, sp3 pain, and discharge, Neck: Negative for injury, pain, and swelling, Cardiovascular: Negative for chest pain, palpitations, and edema, Respiratory: Negative for shortness of breath, cough, wheezing, and pleuritic chest pain, Abdomen/GI: Negative for abdominal pain, nausea, vomiting, diarrhea, and constipation, Skin: Negative for injury, rash, and discoloration, Neuro: Negative for headache, weakness, numbness, tingling, and seizure. 16:18 Constitutional: Positive for fatigue, Negative for body aches, chills, fever, poor PO intake, weight loss. Exam: 16:19 Constitutional: This is a well developed, well nourished patient who is awake, alert, sp3 and in no acute distress. Head/Face: Normocephalic, atraumatic. Eyes: Pupils equal round and reactive to light, extra-ocular motions intact. Lids and lashes normal. Conjunctiva and sclera are non-icteric and not injected. Cornea within normal limits. Periorbital areas with no swelling, redness, or edema. ENT: Nares patent. No nasal discharge, no septal abnormalities noted. External auditory canals are clear. Oropharynx with no redness, swelling, or masses, exudates, or evidence of obstruction, uvula midline. Mucous membranes moist. Neck: Trachea midline, no thyromegaly or masses palpated, and no cervical lymphadenopathy. Supple, full range of motion without nuchal rigidity, or vertebral point tenderness. No Meningismus. Chest/axilla: Normal chest wall appearance and motion. Nontender with no deformity. No lesions are appreciated. 16:19 Abdomen/GI: Soft, non-tender, with normal bowel sounds. No distension or tympany. No guarding or rebound. No evidence of tenderness throughout. Skin: Warm, dry with normal turgor. Normal color with no rashes, no lesions, and no evidence of cellulitis. Psych: Awake, alert, with orientation to person, place and time. Behavior, mood, and affect are within normal limits. 16:19 Cardiovascular: Rate: tachycardic, Rhythm: irregularly irregular, Pulses: 16:19 ECG was reviewed by the Attending Physician. Vital Signs: 15:00 BP 95 / 68; Pulse 116; Resp 17; Pulse Ox 97% ; Weight 95.25 kg; Height 5 ft. 3 in. bp (160.02 cm); 15:02 BP 128 / 110; Pulse 128; Resp 20; Temp 97.9; Pulse Ox 96% ; bp 15:58 BP 91 / 66; Pulse 118; Resp 19; Pulse Ox 97% ; bp 16:45 BP 78 / 45; Pulse 115; Resp 16; Pulse Ox 95% ; bp 17:19 BP 100 / 61; Pulse 119; Resp 13; Pulse Ox 97% ; bp 15:00 Body Mass Index 37.20 (95.25 kg, 160.02 cm) bp NIH Stroke Scale Scores: 15:07 NIHSS Score: 2 bp MDM: 15:04 Patient medically screened. sp3 16:21 Data reviewed: vital signs, lab test result(s), EKG, radiologic studies. ED course: sp3 80-year-old female who presents with generalized weakness and new onset atrial fibrillation. Patient's heart rate is in the 110s to 130s and varies in the emergency department. Blood pressure remains in the 90-100 systolic range. At this time I believe that an oral agent would actually improve her blood pressure before administering we will give patient 500 mL of normal saline IV in an effort to normalize blood pressure prior to receiving Cardizem. I believe patient's A. fib is likely less than 24 hours but there is no way to confirm that so therefore we will anticoagulate with Lovenox 1 dose in the ED as well as attempt the Cardizem.. 17:32 ED course: Patient's heart rate is now between 101-110 still in atrial fibrillation. sp3 Blood pressure is come up with IV fluids to 100 systolic. Will hold AV geovani blocking agents. Lovenox first dose has been given subcutaneously 1 mg/kg. I discussed his case with the hospitalist team who graciously accepted this patient under service. Patient aware of admission and has no further questions.. 18:50 ED course: [facility] transfer center return call saying sp3 that they have bed available now and they will be able to accommodate this patient at their facility. I have spoken to the cardiology team and hospitalist team there who have accepted this patient due to no beds being available here and continued boarding in the emergency department. We thanked him for their assistance in this patient's care.. 19:36 Differential Diagnosis: cardiac arrhythmia, cerebrovascular accident, sepsis, vasovagal mady episode. Data interpreted: equipment monitor phototypesetting: Pulse oximetry: on room air is 97 %. Test interpretation: by ED physician or midlevel provider: ECG, plain radiologic studies. Counseling: I had a detailed discussion with the patient and/or guardian regarding: the historical points, exam findings, and any diagnostic results supporting the discharge/admit diagnosis, lab results, radiology results, the need to transfer to another facility, for higher level of care, [facility] does not immediately have the required specialist. Medication response: digoxin , fluids, improved. 12/03 15:05 Order name: Basic Metabolic Panel; Complete Time: 16:24 sp3 12/03 15:05 Order name: CBC with Diff; Complete Time: 16:24 sp3 12/03 15:05 Order name: LFT's; Complete Time: 16:24 sp3 12/03 15:05 Order name: Magnesium; Complete Time: 16:24 sp3 12/03 15:05 Order name: NT PRO-BNP; Complete Time: 16:24 sp3 12/03 15:05 Order name: PT-INR; Complete Time: 16:55 sp3 12/03 15:05 Order name: Troponin (emerg Dept Use Only); Complete Time: 16:24 sp3 12/03 15:05 Order name: XRAY Chest (1 view); Complete Time: 16:55 sp3 12/03 19:03 Order name: SARS-COV-2 RT PCR; Complete Time: 19:15 EDMS 12/03 15:05 Order name: EKG; Complete Time: 15:06 sp3 12/03 15:05 Order name: Cardiac monitoring; Complete Time: 15:11 sp3 12/03 15:05 Order name: EKG - Nurse/Tech; Complete Time: 15:11 sp3 12/03 15:05 Order name: IV Saline Lock; Complete Time: 15:11 sp3 12/03 15:05 Order name: Labs collected and sent; Complete Time: 15:11 sp3 12/03 15:05 Order name: O2 Per Protocol; Complete Time: 15:11 sp3 12/03 15:05 Order name: O2 Sat Monitoring; Complete Time: 15:11 sp3 EC:19 Rhythm is irregularly irregular. QRS [place] is Normal. QRS interval is normal. QT sp3 interval is normal. Administered Medications: 16:45 Drug: NS 0.9% 500 ml Route: IV; Rate: bolus; Site: right wrist; bp 19:06 Follow up: IV Status: Completed infusion; IV Intake: 500ml bp 17:11 Drug: NS 0.9% 500 ml Route: IV; Rate: bolus; Site: right wrist; bp 19:07 Follow up: IV Status: Completed infusion; IV Intake: 500ml bp 17:39 Not Given (Hemodynamic Parameters): Cardizem (diltiazem) 10 mg IVP once; Over 2 minutes bp 17:39 Not Given (Hemodynamic Parameters): Lovenox (enoxaparin) 1 mg/kg Sub-Q once bp 17:39 Drug: Lovenox (enoxaparin) 1 mg/kg Route: Sub-Q; Site: right lower abdomen; bp 17:39 Follow up: Response: No adverse reaction bp 18:30 Drug: Digoxin 0.5 mg Route: IVP; Site: right wrist; bp 19:07 Follow up: Response: No adverse reaction bp Disposition Summary: 12/03/20 19:21 Transfer Ordered Transfer Location: [facility] mady Reason: Higher level of care mady Condition: Stable(12/03/20 19:21) mady Problem: new(12/03/20 19:21) mady Symptoms: have improved(12/03/20 19:21) mady Accepting Physician: to dr eddie cobian(12/03/20 20:51) mw2 Diagnosis - Unspecified atrial fibrillation(12/03/20 19:21) mady - Weakness mady - Hypotension, unspecified - resolved mady - Palpitations mady Forms: - Medication Reconciliation Form mady - SBAR form mady NIH Stroke Scale - NIH Stroke Score Date: 12/03/2020 Time: 15:07 Total Score = 2 1a. Level of Consciousness (LOC) - 0(Alert) 1b. Level of Consciousness (LOC) (Month \T\ Age) - 0(Both) 1c. LOC Commands (Open \T\ Closes Eyes/Shoe Salesman) - 0(Both) 2. Best Gaze (Lateral Gaze Paresis) - 0(Normal) 3. Visual Field Loss - 0(No visual loss) 4. Facial Palsy - 0(Normal) 5a. Left Arm: Motor (10-second hold) - 0(No drift) 5b. Right Arm: Motor (10-second hold) - 0(No drift) 6a. Left Leg: Motor (5-second hold - always test supine) - 1(Drift) 6b. Right Leg: Motor (5-second hold - always test supine) - 1(Drift) 7. Limb Ataxia (finger/nose \T\ heel/aguirre - test with eyes open) - 0(Absent) 8. Sensory Loss (pinprick arms/legs/face) - 0(Normal) 9. Best Language: Aphasia (description/naming/reading) - 0(No aphasia) 10. Dysarthria (speech clarity - read or repeat words) - 0(Normal) 11. Extinction and Inattention (visual/tactile/auditory/spatial/personal) - 0(No abnormality) Initials: bp Signatures: Dispatcher [employer] EDMS Rodriguez Berry MD MD mady Andrew Bailey, AIR SAMPLING AND MONITORING-C AIR SAMPLING AND MONITORING-Cla1 Heron Lopez, RN RN bp Madie Burnett mw2 Grady Bruno sp3 Corrections: (The following items were deleted from the chart) 17:57 17:36 CORONAVIRUS+MR.LAB.BRZ ordered. EDMS EDMS 17:57 17:39 Omitogun, Dane sp3 la1 19:17 17:39 Observation sp3 mady 19:17 17:39 Telemetry/MedSurg (observation) sp3 mady 19:17 17:39 Stable sp3 mady 19:17 17:39 new sp3 mady 19:17 17:39 have improved sp3 mady 19:17 17:39 Standard sp3 mady 19:17 17:39 sp3 mady 19:17 17:39 Unspecified atrial fibrillation sp3 mady 19:17 17:39 New onset Afib with RVR, hypotension sp3 mady 19:17 17:57 Clayton Paniagua la1 mady 20:51 19:[address] eddie cobian mady mw2
--- NOTE | 2020-12-03 17:39 | ER ---
Nurse's Notes [facility] Name: Agnes Calabrese Age: 80 yrs Sex: Female : 1940 Arrival Date: 12/03/2020 Time: 14:29 Bed 27 Private MD: Diagnosis: Unspecified atrial fibrillation;Weakness;Hypotension, unspecified-resolved;Palpitations Presentation: 12/03 15:02 Chief complaint: EMS states: CALLED BY [facility] 2/2 GEN WEAKNESS. NOTED AFIB ON bp SCENE. Coronavirus screen: At this time, the client does not indicate any symptoms associated with coronavirus-19. Ebola Screen: No symptoms or risks identified at this time. Initial Sepsis Screen: Does the patient meet any 2 criteria? HR > 90 bpm. No. Patient's initial sepsis screen is negative. Does the patient have a suspected source of infection? No. Patient's initial sepsis screen is negative. Risk Assessment: Do you want to hurt yourself or someone else? Patient reports no desire to harm self or others. Onset of symptoms was December 03, 2020 at 14:30. Care prior to arrival: IV initiated. 22 GA, in the right UPPER ARM. 15:02 Method Of Arrival: EMS: [facility] bp 15:02 Acuity: WARREN 2 bp Triage Assessment: 15:02 General: Appears distressed, obese, Behavior is cooperative, appropriate for age, bp anxious. Pain: Denies pain. EENT: No deficits noted. Neuro: Level of Consciousness is awake, alert, obeys commands, Oriented to Appropriate for age Speech is normal, Facial symmetry appears normal. Cardiovascular: Rhythm is atrial fibrillation with rapid ventricular response. Respiratory: No deficits noted. GI: Abdomen is obese, Abd is soft X 4 quads Abd is non tender X 4 quads. : No signs and/or symptoms were reported regarding the genitourinary system. Derm: No deficits noted. Musculoskeletal: Reports weakness in GENERALIZED. - Immunization history:: Adult Immunizations up to date. - Social history:: Smoking status: Patient denies any tobacco usage or history of. Screenin:07 Abuse screen: Denies threats or abuse. Denies injuries from another. Nutritional bp screening: No deficits noted. Tuberculosis screening: No symptoms or risk factors identified. Fall Risk None identified. Assessment: 15:07 General: SEE TRIAGE NOTE. bp 15:58 Reassessment: No changes from previously documented assessment. Patient and/or family bp updated on plan of care and expected duration. Pain level reassessed. CARDIZEM HELD FOR HYPOTENSION. PT TBA. 17:00 Reassessment: No changes from previously documented assessment. Patient and/or family bp updated on plan of care and expected duration. Pain level reassessed. PT NOTED HYPOTENSIVE ON MONITOR. MD NOTIFIED. Vital Signs: 15:00 BP 95 / 68; Pulse 116; Resp 17; Pulse Ox 97% ; Weight 95.25 kg; Height 5 ft. 3 in. bp (160.02 cm); 15:02 BP 128 / 110; Pulse 128; Resp 20; Temp 97.9; Pulse Ox 96% ; bp 15:58 BP 91 / 66; Pulse 118; Resp 19; Pulse Ox 97% ; bp 16:45 BP 78 / 45; Pulse 115; Resp 16; Pulse Ox 95% ; bp 17:19 BP 100 / 61; Pulse 119; Resp 13; Pulse Ox 97% ; bp 15:00 Body Mass Index 37.20 (95.25 kg, 160.02 cm) bp NIH Stroke Scale Scores: 15:07 NIHSS Score: 2 bp ED Course: 14:29 Patient arrived in ED. ds1 15:02 Heron Lopez, RN is Primary Nurse. bp 15:04 Grady Bruno is Attending Physician. sp3 15:04 Triage completed. bp 15:07 Arm band placed on. bp 15:07 Patient has correct armband on for positive identification. Bed in low position. Call bp light in reach. Side rails up X2. 15:07 Maintain EMS IV. Dressing intact. Good blood return noted. Site clean \T\ dry. Gauge \T\ bp site: 22 GAUGE RUE. 15:21 Inserted saline lock: 22 gauge in right wrist, using aseptic technique. Blood collected.bp 15:57 XRAY Chest (1 view) In Process Unspecified. EDMS 17:37 Dane Saucedo MD is Hospitalizing Provider. sp3 17:57 Clayton Paniagua DO is Hospitalizing Provider. la1 18:08 initiated transfer to [facility]. bd 19:17 Attending Physician role handed off by Grady Bruno mady 19:17 Rodriguez Berry MD is Attending Physician. mady 19:30 Primary Nurse role handed off by Heron Lopez RN 2 20:00 administrative approval given by Abimael Cardenas/ patient has been accepted to [address] bed 1405/Dr. Smith accepted the patient in transfer/ report to be called to [phone]. 20:23 Leticia Rankin, DANIEL is Primary Nurse. ch4 Administered Medications: 16:45 Drug: NS 0.9% 500 ml Route: IV; Rate: bolus; Site: right wrist; bp 19:06 Follow up: IV Status: Completed infusion; IV Intake: 500ml bp 17:11 Drug: NS 0.9% 500 ml Route: IV; Rate: bolus; Site: right wrist; bp 19:07 Follow up: IV Status: Completed infusion; IV Intake: 500ml bp 17:39 Not Given (Hemodynamic Parameters): Cardizem (diltiazem) 10 mg IVP once; Over 2 minutes bp 17:39 Not Given (Hemodynamic Parameters): Lovenox (enoxaparin) 1 mg/kg Sub-Q once bp 17:39 Drug: Lovenox (enoxaparin) 1 mg/kg Route: Sub-Q; Site: right lower abdomen; bp 17:39 Follow up: Response: No adverse reaction bp 18:30 Drug: Digoxin 0.5 mg Route: IVP; Site: right wrist; bp 19:07 Follow up: Response: No adverse reaction bp Intake: 19:06 IV: 500ml; Total: 500ml. bp 19:07 IV: 500ml; Total: 1000ml. bp Outcome: 17:39 Decision to Hospitalize by Provider. sp3 19:21 ER care complete, transfer ordered by mady 20:51 Patient left the ED. mw2 NIH Stroke Scale - NIH Stroke Score Date: 12/03/2020 Time: 15:07 Total Score = 2 1a. Level of Consciousness (LOC) - 0(Alert) 1b. Level of Consciousness (LOC) (Month \T\ Age) - 0(Both) 1c. LOC Commands (Open \T\ Closes Eyes/Pediatric Physician Assistant) - 0(Both) 2. Best Gaze (Lateral Gaze Paresis) - 0(Normal) 3. Visual Field Loss - 0(No visual loss) 4. Facial Palsy - 0(Normal) 5a. Left Arm: Motor (10-second hold) - 0(No drift) 5b. Right Arm: Motor (10-second hold) - 0(No drift) 6a. Left Leg: Motor (5-second hold - always test supine) - 1(Drift) 6b. Right Leg: Motor (5-second hold - always test supine) - 1(Drift) 7. Limb Ataxia (finger/nose \T\ heel/aguirre - test with eyes open) - 0(Absent) 8. Sensory Loss (pinprick arms/legs/face) - 0(Normal) 9. Best Language: Aphasia (description/naming/reading) - 0(No aphasia) 10. Dysarthria (speech clarity - read or repeat words) - 0(Normal) 11. Extinction and Inattention (visual/tactile/auditory/spatial/personal) - 0(No abnormality) Initials: bp Signatures: Dispatcher [employer] EDMS Silvia Loya Corey, MD MD cha Sanford, Demi ds1 Andrew Bailey, MANAGER METROLOGY-C MANAGER METROLOGY-Cla1 Heron Lopez, RN RN Madie Burnett mw2 Grady Bruno sp3 Leticia Rankin, DANIEL RN ch4 Corrections: (The following items were deleted from the chart) 15:58 15:00 BP 91 / 66; Pulse 118bpm; Resp 19bpm; Pulse Ox 97%; bp bp 17:19 15:00 BP 95 / 68; Pulse 116bpm; Resp 17bpm; Pulse Ox 97%; bp bp
[2020-12-03] MEDS ORDERED: ENOXAPARIN 100 MG/ML SYR SQ ONE (17:50)
[2020-12-03] MEDS ORDERED: DIGOXIN 0.25 MG/ML AMP ONE (19:23)
[2020-12-03 21:13] VITALS: TEMP 97.9
[2020-12-03 21:18] VITALS: BP 100/61; O2SAT 97
--- NOTE | 2020-12-04 16:57 | EKG ---
Test Date: 2020-12-03 Test Time: 14:59:41 Financial Planning Consultant: JULIANE MEASUREMENT RESULTS: Intervals: Rate: 125 GA: QRSD: 84 QT: 274 QTc: 395 [place]: P: GA: QRS: 93 T: 229 INTERPRETIVE STATEMENTS: Atrial fibrillation with rapid ventricular response Rightward axis ST & T wave abnormality, consider inferior ischemia or digitalis effect ST & T wave abnormality, consider anterior ischemia or digitalis effect Abnormal ECG Compared to ECG 10/19/2020 15:02:50 Right-axis deviation now present Sinus rhythm no longer present ST (T wave) deviation still present Possible ischemia still present Electronically Signed On 12-04-20 16:53:45 CDT by Luis Reveles
== END 2020-12-03 20:55 | disposition home or self-care (01) ==
LOC: ER 14:25 → ERHOLD 18:14
PROVIDERS: ADMIT Family Medicine; ATTEND Family Medicine
DX: I48.91 Unspecified atrial fibrillation (principal); I95.9 Hypotension, unspecified; Z20.822 Contact with and (suspected) exposure to COVID-19
CPT/HCPCS: 96361; 93005; 85025; 80048; 36415; 83735; 85610; 80076; 84484; 83880; 71045; 96372; 96374; 99284; U0003; J1160; J1650; J7040 ×2; G0378 ×2

== ENCOUNTER 2020-12-29 11:52 | Emergency (ER) | payer OTHER ==
[2011-10-24 08:42] VITALS: BP 138/74
--- OUTSIDE RECORDS SUMMARY | 2020-12-29 11:20 | XMS REPORT | Continuity of Care Document ---
:1940 Author Organization [facility] t Address [address] [place] [address] Care Team Providers Name Role Phone Farhat HOLT Primary Care Physician Chrystal Barrett MD Attending Clinician Aleena Goetz MD Attending Clinician Jeannie Ferreira MD Attending Clinician Linda Diaz MD Attending Clinician CHRYSTAL BARRETT Attending Clinician Unavailable Hilton HOLT Attending Clinician ALEENA GOETZ Admitting Clinician Unavailable Payers Payer Name Policy Type Policy Effective Date Expiration Date Sour ce Number AETNA MEDICAREAETNA [id number] 2013 [place] [facility] MEDICARE HMO/PPO 00:00:00 [facility] [id number] -PresentHMO Problems Condition Condition Condition Status Onset Resolution Last Treating Co mments Source Name Details Category Date Date Treatment Clinician Date Atrial Atrial Disease Active [facility] fibr[facility] fibrillati 8-16 Carol kes - on with on with 00:00: Medical RVR RVR 00 Center CINTHIA CINTHIA Disease Active [facility] (obstructi (obstructi Carol kes - ve sleep ve sleep Medica l apnea) apnea) Center Allergies, Adverse Reactions, Alerts Allergy Allergy Status Severity Reaction(s) Onset Inactive Treating Comm ents Source Name Type Date Date Clinician Strawber Propensi Active Rash 2021-[address] [facility] [address] ry ty to 12-04 [facility] - adverse 00:00: Medical reaction 00 Center s Clindamy Propensi Active Rash 2020-[address] jose Hcl ty to 12-03 [facility] - adverse 00:00: Medical reaction 00 Center s Penicill Propensi Active Rash 2020-[address] in ty to 12-03 [facility] - adverse 00:00: Medical reaction 00 Center s Sulfa Propensi Active Rash 2020-[address] (Sulfona ty to 12-03 [facility] - mide adverse 00:00: Medical Antibiot reaction 00 Center ics) s Clindamy Propensi Active Unknown 2020-0 Metho di jose ty to Reaction 6-30 st Phosphat adverse 00:00: Hospita e reaction 00 l s to drug Propoxyp Propensi Active Unknown 2020-0 Metho di [...] Hospita reaction 00 l s to drug Family History Family Member Diagnosis Comments Start Date Stop Date Source Natural father Diabetes [facility] Natural father Heart disease [facility] Natural father Hypertension [facility] Natural mother Asthma [facility] Social History Social Habit Start Date Stop Date Quantity Comments Source History SDOH [facility] - Alcohol Std Drinks Medica l Center History SDOH [facility] - Alcohol Binge Medical Dagoberto ter History SDOH [facility] - Alcohol Comment Medical C enter Exposure to Not sure [facility] - SARS-CoV-2 (event) Medica l Center History of tobacco Smoker [facility] Hospital Tobacco use and 2020-12-03 2020-12-[address] [facility] Carol kes - exposure 00:00:00 00:00:00 Medical Center Alcohol intake 2020-12-03 2020-12-[address] [facility] - 00:00:00 00:00:00 non-drinker Medical Cente r (finding) History SDOH 2020-12-03 2020-12-[address] [facility] - Alcohol Frequency 00:00:00 00:00:[address] [facility] Cigarettes smoked 2019-10-18 2019-10-[address] current (pack per 00:00:00 00:00:00 [facility] - Reported Cigarette 2019-10-18 2019-10-18 [facility] pack-years 00:00:00 00:00:00 [facility] Sex Assigned At [address] [address] Carol kes - 00:00:00 00:00:00 Medical Center Smoking Status Start Date Stop Date Source Former smoker 2019-10-18 00:00:00 2019-10-18 00:00:00 [facility] Medications Ordered Filled Start Stop Current Ordering Indication Dosage Frequency Signature Comments Components Source Medication Medication Date Date Medication? Clinician (SIG) Name Name furosemide 2021- Yes 20mg QD Take [address] (LASIX) 20 8- 08-23 tablet (20 Carol kes - MG tablet 00:00: 23:59 mg total) Me dical 00 :00 by mouth Center daily. zolpidem Yes 10mg Take [address] [address] (AMBIEN) 10 8-22 by mouth Luke s - mg tablet 12:43: every Medical 24 night as Center needed for Insomnia. donepeziL Yes 10mg QD Take [address] (ARICEPT) 8-22 by mouth [facility] - 10 MG 12:43: nightly. Medical tablet 24 Center DULoxetine Yes 60mg Q.5D Take [address] (CYMBALTA) 8-22 by mouth 2 Brain es - 60 MG 12:43: (two) Medical capsule 24 times Center daily. gabapentin Yes 300mg Q.22814222 Take [address] (NEURONTIN) 8-22 [id number] mg by L ukes - 300 MG 12:43: 3D mouth 3 Medical capsule 24 (three) Center times daily. indapamide Yes 2.5mg QD Take 2.[address] (LOZOL) 2.5 8-22 mg by Lukes - MG tablet 12:43: mouth Medical 24 every Center morning. memantine Yes 10mg Q.5D Take [address] (NAMENDA) 8-22 by mouth 2 Luke s - 10 MG 12:43: (two) Medical tablet 24 times Center daily. metoprolol Yes 25mg QD Take [address] succinate 8-22 by mouth [facility]ukes - (TOPROL-XL) 12:43: nightly. Me dical 25 MG 24 hr 24 Center tablet HYDROcodone Yes 1{tbl} Take [address] -acetaminop 8-22 tablet by Brain es - hen (NORCO 12:43: mouth 3 Medi jennifer 7.5-325) 24 (three) Center 7.5-325 mg times per tablet daily as needed for Pain. potassium Yes 20meq Q.5D Take [address] chloride 8-22 mEq by Lukes - (KLOR-CON) 12:43: mouth 2 Medi jennifer 20 mEq 24 (two) Center packet times daily. QUEtiapine Yes 200mg QD Take [address] (SEROquel) 8-22 mg by Lukes - 200 MG 12:43: mouth Medical tablet 24 nightly. Center simvastatin Yes 40mg QD Take [address] (ZOCOR) 40 8-22 by mouth [facility] - MG tablet 12:43: nightly. Medi jennifer 24 Center topiramate Yes 200mg Q.5D Take [address] (TOPAMAX) 8-22 mg by [facility]ukes - 200 MG 12:43: mouth 2 Medical tablet 24 (two) Center times daily. buPROPion Yes 150mg QD Take [address] (WELLBUTRIN 8-22 mg by Lukes - XL) 150 MG 12:43: mouth Medica l 24 hr 24 daily. Center tablet ALPRAZolam Yes .25mg Take 0.[address] (XANAX) 8-22 mg by [facility]ukes - 0.25 MG 12:43: mouth Medical tablet 24 every Center night as needed for Anxiety. tiZANidine Yes 4mg QD Take [address] (ZANAFLEX) 8-22 by mouth [facility]ukes - 4 MG tablet 12:43: daily. Medi jennifer 24 Center fluticasone Yes QD Inhale [address] -umeclidin- 12-09 Inhalation Carol kes - vilanter 12:43: by mouth Medic al (Trelegy 24 via Center Ellipta) inhaler 100-62.5-25 daily . mcg DsDv clopidogreL 2020- No 75mg QD Take [address] (PLAVIX) 75 12-09 by mouth Brain es - mg tablet 10:48: 00:00 daily. Medic al 43 :00 Center apixaban 2021- Yes 5mg Q.5D Take [address] (ELIQUIS) 5 12-09 tablet (5 Carol kes - mg Tab 00:00: 23:59 mg total) Medic al tablet 00 :00 by mouth 2 Center (two) times daily. cyanocobala 2021- Yes 1000ug QD Take [address] min, 12-09 tablet Lukes - vitamin 00:00: 23:59 (1,000 mcg Med ical B-12, 1000 00 :00 total) by Cent er MCG tablet mouth daily. flecainide 2021- Yes 50mg Take [address] (TAMBOCOR) 12-09 tablet (50 Carol kes - 50 MG 00:00: 23:59 mg total) Medica l tablet 00 :00 by mouth Center every 12 (twelve) hours. benzonatate No 100mg Take [address] (TESSALON) 12-09 capsule [facility]ukes - 100 MG 00:00: 23:59 (100 mg Medical capsule 00 :00 total) by Center mouth 3 (three) times daily as needed for Cough for up to 7 days. Vital Signs Vital Name Observation Time Observation Value Comments Source Heart rate 2020-12-09 08:01:00 56 /min [facility] Respiratory rate 2020-12-09 08:01:00 16 /min [facility] Oxygen saturation in 2020-12-09 08:01:00 93 /min [facility] - Arterial blood by Medical Ce nter Pulse oximetry Systolic blood 2020-12-09 07:00:00 126 mm[Hg] [facility] Diastolic blood 2020-12-09 07:00:00 60 mm[Hg] [facility] Body temperature 2020-12-09 07:00:00 36.61 Genia [facility] Body weight 2020-12-09 06:47:00 97.478 kg [facility] BMI 2020-12-09 06:47:00 38.07 kg/m2 [facility] Body height 2020-12-03 22:25:00 160 cm [facility] Procedures Procedure Date / Time Performing Clinician Source Performed HIGH SENSITIVITY TROPONIN 2020-12-08 16:40:00 Perfecto Diaz [facility] ECG 12-LEAD 2020-12-08 15:59:02 Unknown, Hl7 Doctor [facility] ECG 12-LEAD 2020-12-08 15:59:02 Unknown, Hl7 Doctor [facility] XR CHEST 1 VIEW PORTABLE / 2020-12-08 07:54:00 Kvng Crane [facility] BASIC METABOLIC PANEL (7) 2020-12-08 04:39:[address] [facility] CBC W/PLT COUNT & AUTO 2020-12-08 04:39:00 Himanshu Guillaume [facility] - DIFFERENTIAL [facility] MAGNESIUM 2020-12-08 04:39:00 Himanshu Guillaume [facility] CBC W/PLT COUNT & AUTO 2020-12-08 04:39:00 Downsevangelina Guillaume S t [facility] DIFFERENTIAL [facility] B-TYPE NATRIURETIC FACTOR 2020-12-07 03:34:[address] [facility] (BNP) [facility] XR CHEST 1 VIEW PORTABLE / 2020-12-06 13:03:[address] [facility] BASIC METABOLIC PANEL (7) 2020-12-06 11:41:00 Perfecto Diaz JOSH Saldaña [facility] MAGNESIUM 2020-12-06 11:41:00 Joe, Josianedeb [facility] B-TYPE NATRIURETIC FACTOR 2020-12-06 11:41:00 JoeJosiane thakkardeb [facility] (BNP) [facility] ECG 12-LEAD 2020-12-05 10:53:46 Dion [facility] TRANSESOPHAGEAL ECHO 2020-12-05 09:39:19 [facility] BASIC METABOLIC PANEL (7) 2020-12-05 05:17:00 Bishnu [facility] HEPATIC FUNCTION PANEL 2020-12-05 05:17:00 Bishnu [facility] CBC W/PLT COUNT & AUTO 2020-12-05 05:17:00 [facility]nu [facility] DIFFERENTIAL [facility] CBC W/PLT COUNT & AUTO 2020-12-05 05:17:00 Bishnu [facility] DIFFERENTIAL [facility] CARDIOVERSION 2020-12-05 00:31:19 [facility]ITIVITY TROPONIN 2020-12-04 18:35:00 Bishnu [facility] 2D ECHO W/ DOPPLER 2020-12-04 14:07:[address] [facility] (CW/PW/COLOR) [facility] CT CHEST FOR PULMONARY 2020-12-04 05:36:00 Bishnu [facility] EMBOLUS [facility] XR CHEST 1 VIEW PORTABLE / 2020-12-04 04:08:00 Андрей Goetz [facility] - BEDSIDE [facility] SARS-COV2/RT-PCR ([facility] & 2020-12-04 03:48:00 Bishnu [facility] - REF LABS) [facility] BASIC METABOLIC PANEL (7) 2020-12-04 03:41:00 Bishnu, [facility] HEPATIC FUNCTION PANEL 2020-12-04 03:41:00 Bishnu, [facility] CBC W/PLT COUNT & AUTO 2020-12-04 03:41:00 Bishnu, [facility] HIGH SENSITIVITY TROPONIN 2020-12-04 03:41:00 Bishnu [facility] B-TYPE NATRIURETIC FACTOR 2020-12-04 03:41:00 Bishnu, [facility] (BNP) [facility] CBC W/PLT COUNT & AUTO 2020-12-04 03:41:00 Bishnu [facility] BASIC METABOLIC PANEL (7) 2020-12-03 23:21:00 Bishnu [facility] HEPATIC FUNCTION PANEL 2020-12-03 23:21:00 Bishnu [facility] MAGNESIUM 2020-12-03 23:21:00 Bishnu [facility] PHOSPHORUS 2020-12-03 23:21:00 Bishnu [facility] PROTHROMBIN TIME/INR 2020-12-03 23:21:00 Bishnu [facility] CBC W/PLT COUNT & AUTO 2020-12-03 23:21:00 Bishnu [facility] TSH/FREE T4 IF INDICATED 2020-12-03 23:21:00 Bishnu, [facility] HIGH SENSITIVITY TROPONIN 2020-12-03 23:21:00 Bishnu [facility] D-DIMER 2020-12-03 23:21:00 [facility] FOLATE 2020-12-03 23:21:00 Bishnu, [facility] CBC W/PLT COUNT & AUTO 2020-12-03 23:21:00 BishnuАндрей barth [facility] - DIFFERENTIAL [facility] ECG 12-LEAD 2020-12-03 23:12:15 BishnuАндрей barth [facility] ECG 12-LEAD 2020-12-03 23:07:40 Unknown, Hl7 Doctor RUBEN Gomes - [facility] REPORT OF PROCEDURE - 2020-12-03 00:00:00 Provider, Default RUBEN Martinez - ENDOSCOPY SCAN Scanning [facility] [place] EXTERNAL STUDY EXAM 2019-12-09 16:20:00 Renan Canela [facility] Plan of Care Planned Activity Planned Date Details Comments Source Future Scheduled 2020-12-19 INFLUENZA VACCINE (#1) [facility] Test 00:00:00 [code = INFLUENZA Medical Ce nter VACCINE (#1)] Future Scheduled 2020-04-[address] [facility] - Test 00:00:00 (12+) [code = Medical Center DEPRESSION SCREENING (12+)] Future Scheduled 2020-04-20 FALLS RISK SCREENING [facility] - Test 00:00:00 [code = FALLS RISK Medical C enter SCREENING] Future Scheduled 2020-04-20 Medicare IPPE (WELCOME [facility] - Test 00:00:00 TO MEDICARE) [code = Medical Center Medicare IPPE (WELCOME TO MEDICARE)] Future Scheduled 2006 PNEUMOCOCCAL 65+ YRS [facility] - Test 00:00:00 (1 of 1 - Medical Center [id number] PCV13) [code = PNEUMOCOCCAL 65+ YRS (1 of 1 - [id number] PCV13)] Future Scheduled 1991 SHINGLES VACCINES ([address] [facility] - Test 00:00:00 of 2) [code = SHINGLES Medic al Center VACCINES (1 of 2)] Future Scheduled 1960-01-25 DTAP/TDAP/TD VACCINES [facility] Test 00:00:00 (1 - Tdap) [code = Medical C enter DTAP/TDAP/TD VACCINES (1 - Tdap)] Future Scheduled 1959 HEPATITIS C SCREENING [facility] Test 00:00:00 [code = HEPATITIS C Medical Center SCREENING] Future Scheduled Hepatitis C screening [facility] Test (procedure) [code = 700364607] Future Scheduled SHINGLES VACCINES (#1) M [facility] Test [code = SHINGLES VACCINES (#1)] Future Scheduled 65+ PNEUMOCOCCAL [facility] Test VACCINE (1 of 1 - PPSV23) [code = 65+ PNEUMOCOCCAL VACCINE (1 of 1 - PPSV23)] Future Scheduled INFLUENZA VACCINE Method [facility] Hospital Test [code = INFLUENZA VACCINE] Future Scheduled Hepatitis C screening [facility] Test (procedure) [code = 950409174] Future Scheduled SHINGLES VACCINES (#1) M [facility] Test [code = SHINGLES VACCINES (#1)] Future Scheduled 65+ PNEUMOCOCCAL [facility] Test VACCINE (1 of 1 - PPSV23) [code = 65+ PNEUMOCOCCAL VACCINE (1 of 1 - PPSV23)] Future Scheduled INFLUENZA VACCINE [facility] Test [code = INFLUENZA VACCINE] Encounters Start End Encounter Admission Attending Care Care Encounter Source Date/Time Date/Time Type Type Clinicians Facility Department ID 2020-12-03 2020-12-09 [facility] Dominique Barrett [facility] [id number] [facility] 22:07:00 12:43:00 Encounter Андрей Goetz Yashash D [facility] Perfecto [facility][Note 3] 2020-12-08 2020-12-08 Orders [facility] [id number] 00:00:00 00:00:00 Only [facility] 2020-12-05 2020-12-05 Outpatient [facility] [id number] [facility] 00:00:00 23:59:00 Saumya 2020-12-04 2020-12-04 Travel [facility] [id number] [facility] 00:00:00 [facility] 2020-08-27 2020-08-27 [facility] 1.2.840.1 [id number] Methodi 08:36:31 23:59:00 Encounter Renan [id number] 3.430.2.7 Hospit a .3.056075 l .8 2020-08-27 2020-08-27 [place] [id number] Methodi 08:36:31 23:59:00 Encounter Renan [id number] 3.430.2.7 Hospit a .3.152691 l .8 2020-07-03 2020-07-03 Office Canela, 1.2.840.1 [id number] Methodi 13:03:28 13:29:49 Visit Renan [id number] 3.430.2.7 Hospit a .3.905842 l .8 2020-07-03 2020-07-03 Office Canela, 1.2.840.1 [id number] Methodi 13:03:28 13:29:49 Visit Renan [address]9031.1.[address] 3.430.2.7 Hospit a .3.017659 l .8 2020-07-03 2020-07-03 Travel 1.2.840.1 [id number] [id number] Methodi 00:00:00 00:00:[address] 3.430.2.7 0.2.7.3.698 Ho spita .3.829596 084.8 l .8 2020-07-03 2020-07-03 Travel 1.2.840.1 [id number] [id number] Methodi 00:00:00 00:00:[address] 3.430.2.7 0.2.7.3.698 Ho spita .3.642226 084.8 l .8 Results Test Description Test Time Test Comments Results Result Comments Source High Sensitivity Troponin I ([facility]/Genna Only) 2020-12-08 1 7:20:00 Test Item Value Reference Range Interpretation Comme nts Troponin I HS (test 6 pg/ml See_Comment [Aut omated message] The code = 26498-3) system which generated this result tra nsmitted reference range : <=17. The reference r guillaume was not used to int erpret this result as normal/abnormal . GERALD (test code = GREALD) Mobile Equipment Operator ID - DBThe ROTARY ENGINE ASSEMBLER STAT High Sensitivity Troponin-I results should be used in conjunction with other diagnostic information such as ECG, clinical observations and information, and patient symptoms to aid in the diagnosis of DE. Lab Interpretation (test Normal code = 55517-3) [facility]OPONIN [id number] 17:20:00 Test Item Value Reference Range Interpretation Comments HIGH SENSITIVITY 6 pg/ml See_Comment [Automated message] TROPONIN I (test code = The system which 2717226) generated this result transmitted ref erence range: <=17. Th e reference range was not used to interpr et this result as normal/abnormal . Mobile Equipment Operator ID - DBThe ROTARY ENGINE ASSEMBLER STAT High Sensitivity Troponin-I results should be used in conjunctionwith other diagnostic information such as ECG, clinical observations and information, and patient symptoms to aid in the diagnosis of DE.RAD, CHEST, 1 VIEW, NON [id number] 10:23:00Reason for exam:->pulm edemaShould this be performed at the bedside?->Yes [facility] : 1940 Sex: FFINAL REPORT HISTORY: Pulmonary edema COMPARISON: 12/06/2020 FIND INGS: Mild interstitial pulmonary edema. No pleural effusions or pneumothorax. The heart shadow is borderline enlarged. The thoracic aorta is mildly tortuous. There are postoperative changes in the cervical spine. A right shoulder arthroplasty is partially imaged. Signed: Kenia Reneport Verified Date/Time: 12/08/2020 10:23:36 Reading Location: [address] Reading Room Basic Metabolic [id number] 05:46:00 Test Item Value Reference Range Interpretation Comments Sodium (test code = 140 meq/L 551-302 3553-2) Potassium (test code = 3.4 meq/L 3.5-5.1 L 2823-3) Chloride (test code = 108 meq/L 98-107 H 2075-0) CO2 (test code = 25 meq/L 2028-9) BUN (test code = 11 mg/dL - 3094-0) Creatinine (test code 1.12 mg/dL 0.57-1.25 = 2160-0) Glucose (test code = 113 mg/dL 70-105 H 2345-7) Calcium (test code = 8.9 mg/dL 8.4-10.2 06174-7) EGFR (test code = 47 mL/min/1.73 [place] [address]-3) NOT ACCURATE CREATININE CLEARANCE IN PREDICTING GLOMERULAR FILTRATION RATE . ESTIMATED GFR I S NOT APPLICABLE FOR DIALYSIS PATIENTS. GERALD (test code = GERALD) Mobile Equipment Operator ID - EMIL M Lab Interpretation Abnormal (test code = 66610-2) [facility] Center[facility]esium2021-08-21 05:46:00 Test Item Value Reference Range Interpretation Comments Magnesium (test code = 1.7 mg/dL 1.6-2.6 85177-5) GERALD (test code = GERALD) Mobile Equipment Operator ID - EMIL M Lab Interpretation (test Normal code = 27164-3) [facility] Center[facility] METABOLIC [id number] 05:46:00 Test Item Value Reference Range Interpretation Comments SODIUM (BEAKER) 140 meq/L 136-145 (test code = 381) POTASSIUM (BEAKER) 3.4 meq/L 3.5-5.1 L (test code = 379) CHLORIDE (BEAKER) 108 meq/L 98-107 H (test code = 382) CO2 (BEAKER) (test 25 meq/L code = 355) BLOOD UREA NITROGEN 11 mg/dL 11-07 (BEAKER) (test code = 354) CREATININE (BEAKER) 1.12 mg/dL 0.57-1.25 (test code = 358) GLUCOSE RANDOM 113 mg/dL 70-105 H (BEAKER) (test code = 652) CALCIUM (BEAKER) 8.9 mg/dL 8.4-10.2 (test code = 697) EGFR (BEAKER) (test 47 mL/min/1.73 ESTIMA FIOR GFR IS code = 1092) sq m NOT ACCURATE CREATININE CLEARANCE IN PREDICTING GLOMERULAR FILTRATION RATE . ESTIMATED GFR I S NOT APPLICABLE FOR DIALYSIS PATIEN TS. Mobile Equipment Operator ID - EMIL [id number] 05:46:00 Test Item Value Reference Range Interpretation Comments MAGNESIUM (BEAKER) (test code = 1.7 mg/dL 1.6-2.6 627) Mobile Equipment Operator ID - EMIL MCBC with platelet count + automated [id number] 05:04:00 Test Item Value Reference Range Interpretation Comments WBC (test code = 6690-2) 5.7 See_Comment [A utomated message] The system Gojimo generated this result transmitted ref erence range: 3.5 - 10 .5 K/L. The refe rence range was not u sed to interpret this result as normal/abnor mal. RBC (test code = 789-8) 3.85 See_Comment L [Au tomated message] The system Gojimo generated this result transmitted ref erence range: 3.93 - 5 .22 M/L. The refe rence range was not u sed to interpret this result as normal/abnor mal. MCHC (test code = 786-4) 30.9 See_Comment L [A utomated message] The system Gojimo generated this result transmitted ref erence range: 32.2 - 3 5.5 GM/DL. The refe rence range was not u sed to interpret this result as normal/abnor mal. Hematocrit (test code = 39.1 % 34.1-44.9 4544-3) MCV (test code = 787-2) 101.6 fL 79.4-94.8 H MCH (test code = 785-6) 31.4 pg 25.6-32.2 RDW (test code = 788-0) 13.8 % 11.7-14.4 Platelets (test code = 204 See_Comment [Aut omated message] 777-3) The system Gojimo generated this result transmitted ref erence range: 150 - 45 0 K/CU MM. The referen ce range was not u sed to interpret this result as normal/abnor mal. MPV (test code = 9.5 fL 9.4-12.3 89135-3) nRBC (test code = 413) 0 See_Comment [Aut omated message] The system Gojimo generated this result transmitted ref erence range: 0 - 0 /1 00 WBC. The refere nce range was not u sed to interpret this result as normal/abnor mal. % Neutros (test code = 52 % 429) % Lymphs (test code = 32 % 430) % Monos (test code = 11 % 431) % Eos (test code = 432) 5 % % Baso (test code = 437) 1 % # Neutros (test code = 2.96 See_Comment [Aut omated message] 670) The system Gojimo generated this result transmitted ref erence range: 1.56 - 6 .13 K/L. The refe rence range was not u sed to interpret this result as normal/abnor mal. # Lymphs (test code = 1.83 See_Comment [Auto mated message] 414) The system Gojimo generated this result transmitted ref erence range: 1.18 - 3 .74 K/L. The refe rence range was not u sed to interpret this result as normal/abnor mal. # Monos (test code = 0.60 See_Comment H [Autom ated message] 415) The system Gojimo generated this result transmitted ref erence range: 0.24 - 0 .36 K/L. The refe rence range was not u sed to interpret this result as normal/abnor mal. # Eos (test code = 416) 0.26 See_Comment [Au tomated message] The system Gojimo generated this result transmitted ref erence range: 0.04 - 0 .36 K/L. The refe rence range was not u sed to interpret this result as normal/abnor mal. # Baso (test code = 417) 0.05 See_Comment [A utomated message] The system Gojimo generated this result transmitted ref erence range: 0.01 - 0 .08 K/L. The refe rence range was not u sed to interpret this result as normal/abnor mal. Immature 1 % 0-1 Granulocytes-Relative (test code = 2801) Lab Interpretation (test Abnormal code = 41938-4) [facility] W/PLT COUNT & AUTO [id number] 05:04:00 Test Item Value Reference Range Interpretation Comments WHITE BLOOD CELL COUNT (BEAKER) 5.7 K/ L 3.5-10.5 (test code = 775) RED BLOOD CELL COUNT (BEAKER) 3.85 M/ L 3.93-5.22 L (test code = 761) HEMOGLOBIN (BEAKER) (test code = 12.1 GM/DL 11.2-15.7 410) HEMATOCRIT (BEAKER) (test code = 39.1 % 34.1-44.9 411) MEAN CORPUSCULAR VOLUME (BEAKER) 101.6 fL 79.4-94.8 H (test code = 753) MEAN CORPUSCULAR HEMOGLOBIN 31.4 pg 25.6-32.2 (BEAKER) (test code = 751) MEAN CORPUSCULAR HEMOGLOBIN CONC 30.9 GM/DL 32.2-35.5 L (BEAKER) (test code = 752) RED CELL DISTRIBUTION WIDTH 13.8 % 11.7-14.4 (BEAKER) (test code = 412) PLATELET COUNT (BEAKER) (test 204 K/CU MM 150-450 code = 756) MEAN PLATELET VOLUME (BEAKER) 9.5 fL 9.4-12.3 (test code = 754) NUCLEATED RED BLOOD CELLS 0 /100 WBC 0-0 (BEAKER) (test code = 413) NEUTROPHILS RELATIVE PERCENT 52 % (BEAKER) (test code = 429) LYMPHOCYTES RELATIVE PERCENT 32 % (BEAKER) (test code = 430) MONOCYTES RELATIVE PERCENT 11 % (BEAKER) (test code = 431) EOSINOPHILS RELATIVE PERCENT 5 % (BEAKER) (test code = 432) BASOPHILS RELATIVE PERCENT 1 % (BEAKER) (test code = 437) NEUTROPHILS ABSOLUTE COUNT 2.96 K/ L 1.56-6.13 (BEAKER) (test code = 670) LYMPHOCYTES ABSOLUTE COUNT 1.83 K/ L 1.18-3.74 (BEAKER) (test code = 414) MONOCYTES ABSOLUTE COUNT (BEAKER) 0.60 K/ L 0.24-0.36 H (test code = 415) EOSINOPHILS ABSOLUTE COUNT 0.26 K/ L 0.04-0.36 (BEAKER) (test code = 416) BASOPHILS ABSOLUTE COUNT (BEAKER) 0.05 K/ L 0.01-0.08 (test code = 417) IMMATURE GRANULOCYTES-RELATIVE 1 % 0-1 PERCENT (BEAKER) (test code = 2801) B-type Natriuretic Factor (BNP)2020-12-07 04:52:00 Test Item Value Reference Range Interpretation Comments BNP (test code = 84398-2) 97 pg/mL 0-100 GERALD (test code = GERALD) Mobile Equipment Operator ID - JENNY L Lab Interpretation (test Normal code = 79957-4) [facility] (BNP)2020-12-07 04:52:00 Test Item Value Reference Range Interpretation Comments B-TYPE NATRIURETIC PEPTIDE (BEAKER) 97 pg/mL 0-100 (test code = 700) Mobile Equipment Operator ID - JENNY LRAD, CHEST, 1 VIEW, NON [id number] 14:01:00Reason for exam:->dyspneaShould this be performed at the bedside?->Yes [facility] 1940 Sex: FFINAL REPORT CLINICAL HISTORY: dyspnea TECHNIQUE: 1 view of the c hest. COMPARISON: 12/04/2020 IMPRESSION: Pulmonary vascular congestion is again seen with slightly increased prominence of the interstitial lung markings bilaterally. There is no focal lobar consolidation or significant pleural fluid. The cardiomediastinal silhouette is magnified by technique. Cervicalfusion hardware right shoulder hardware is again seen. Signed: Lacy Donald [facility] Verified Date/Time: 12/06/2020 14:01:32 Reading Location: [facility] Reading Room Electronicallysigned by: LACY DONALD M.D. on 12/06/2020 02:01 PMBASI METABOLIC [id number] 12:22:00 Test Item Value Reference Range Interpretation Comments SODIUM (BEAKER) 134 meq/L 136-145 L (test code = 381) POTASSIUM (BEAKER) 3.7 meq/L 3.5-5.1 (test code = 379) CHLORIDE (BEAKER) 103 meq/L 98-107 (test code = 382) CO2 (BEAKER) (test 25 meq/L 22-29 code = 355) BLOOD UREA NITROGEN 15 mg/dL 7-21 (BEAKER) (test code = 354) CREATININE (BEAKER) 1.24 mg/dL 0.57-1.25 (test code = 358) GLUCOSE RANDOM 168 mg/dL 70-105 H (BEAKER) (test code = 652) CALCIUM (BEAKER) 8.3 mg/dL 8.4-10.2 L (test code = 697) EGFR (BEAKER) (test 42 mL/min/1.73 ESTIMA FIOR GFR IS code = 1092) sq m NOT ACCURATE CREATININE CLEARANCE IN PREDICTING GLOMERULAR FILTRATION RATE . ESTIMATED GFR I S NOT APPLICABLE FOR DIALYSIS PATIEN TS. Mobile Equipment Operator ID - [id number] 12:22:00 Test Item Value Reference Range Interpretation Comments MAGNESIUM (BEAKER) (test code = 1.7 mg/dL 1.6-2.6 627) Mobile Equipment Operator ID - EMERSONB-TYPE NATRIURETIC FACTOR (BNP)2020-12-06 12:13:00 Test Item Value Reference Range Interpretation Comments B-TYPE NATRIURETIC PEPTIDE (BEAKER) 88 pg/mL 0-100 (test code = 700) Mobile Equipment Operator ID - EMERSONTransesophageal [id number] 21:25:57Ejection FractionSLEH ECHO HEARTLAB MKCKESSON [facility] HospitalHepatic function [id number] 06:35:00 Test Item Value Reference Range Interpretation Comments Protein, Total (test 5.4 See_Comment L [Autom ated code = 2885-2) message] The system which generated this result transmit fior reference range : 6.0 - 8.3 gm/dL . The reference range was not u sed to interpret th is result as normal/abnormal . Albumin (test code = 2.7 g/dL 3.5-5.0 L 69370-1) Total Bilirubin (test 0.1 mg/dL 0.2-1.2 L code = 1974-2) Bilirubin, Direct 0.1 mg/dL 0.1-0.5 (test code = 1967-7) Alkaline Phosphatase 80 U/L 40-150 (test code = 6768-6) AST (test code = 15 U/L 5-34 1920-8) ALT (test code = 8 U/L 6-55 1742-6) GERALD (test code = GERALD) Mobile Equipment Operator ID - JENNY L Lab Interpretation Abnormal (test code = 59987-1) [facility] METABOLIC [id number] 06:35:00 Test Item Value Reference Range Interpretation Comments SODIUM (BEAKER) 138 meq/L 136-145 (test code = 381) POTASSIUM (BEAKER) 3.6 meq/L 3.5-5.1 (test code = 379) CHLORIDE (BEAKER) 106 meq/L 98-107 (test code = 382) CO2 (BEAKER) (test 22 meq/L 22-29 code = 355) BLOOD UREA NITROGEN 15 mg/dL 7-21 (BEAKER) (test code = 354) CREATININE (BEAKER) 1.12 mg/dL 0.57-1.25 (test code = 358) GLUCOSE RANDOM 69 mg/dL 70-105 L (BEAKER) (test code = 652) CALCIUM (BEAKER) 8.4 mg/dL 8.4-10.2 (test code = 697) EGFR (BEAKER) (test 47 mL/min/1.73 ESTIMA FIOR GFR IS code = 1092) sq m NOT ACCURATE CREATININE CLEARANCE IN PREDICTING GLOMERULAR FILTRATION RATE . ESTIMATED GFR I S NOT APPLICABLE FOR DIALYSIS PATIEN TS. Mobile Equipment Operator ID - PIAYA LHEPATIC FUNCTION [id number] 06:35:00 Test Item Value Reference Range Interpretation Comments TOTAL PROTEIN (BEAKER) (test code = 5.4 gm/dL 6.0-8.3 L 770) ALBUMIN (BEAKER) (test code = 1145) 2.7 g/dL 3.5-5.0 L BILIRUBIN TOTAL (BEAKER) (test code 0.1 mg/dL 0.2-1.2 L = 377) BILIRUBIN DIRECT (BEAKER) (test 0.1 mg/dL 0.1-0.5 code = 706) ALKALINE PHOSPHATASE (BEAKER) (test 80 U/L 40-150 code = 346) AST (SGOT) (BEAKER) (test code = 15 U/L 5-34 353) ALT (SGPT) (BEAKER) (test code = 8 U/L 6-55 347) Mobile Equipment Operator ID - PIAYA LCBC W/PLT COUNT & AUTO [id number] 05:44:00 Test Item Value Reference Range Interpretation Comments WHITE BLOOD CELL COUNT (BEAKER) 5.8 K/ L 3.5-10.5 (test code = 775) RED BLOOD CELL COUNT (BEAKER) 3.95 M/ L 3.93-5.22 (test code = 761) HEMOGLOBIN (BEAKER) (test code = 12.7 GM/DL 11.2-15.7 410) HEMATOCRIT (BEAKER) (test code = 40.1 % 34.1-44.9 411) MEAN CORPUSCULAR VOLUME (BEAKER) 101.5 fL 79.4-94.8 H (test code = 753) MEAN CORPUSCULAR HEMOGLOBIN 32.2 pg 25.6-32.2 (BEAKER) (test code = 751) MEAN CORPUSCULAR HEMOGLOBIN CONC 31.7 GM/DL 32.2-35.5 L (BEAKER) (test code = 752) RED CELL DISTRIBUTION WIDTH 13.4 % 11.7-14.4 (BEAKER) (test code = 412) PLATELET COUNT (BEAKER) (test 213 K/CU MM 150-450 code = 756) MEAN PLATELET VOLUME (BEAKER) 9.8 fL 9.4-12.3 (test code = 754) NUCLEATED RED BLOOD CELLS 0 /100 WBC 0-0 (BEAKER) (test code = 413) NEUTROPHILS RELATIVE PERCENT 41 % (BEAKER) (test code = 429) LYMPHOCYTES RELATIVE PERCENT 41 % (BEAKER) (test code = 430) MONOCYTES RELATIVE PERCENT 10 % (BEAKER) (test code = 431) EOSINOPHILS RELATIVE PERCENT 6 % (BEAKER) (test code = 432) BASOPHILS RELATIVE PERCENT 1 % (BEAKER) (test code = 437) NEUTROPHILS ABSOLUTE COUNT 2.34 K/ L 1.56-6.13 (BEAKER) (test code = 670) LYMPHOCYTES ABSOLUTE COUNT 2.38 K/ L 1.18-3.74 (BEAKER) (test code = 414) MONOCYTES ABSOLUTE COUNT (BEAKER) 0.57 K/ L 0.24-0.36 H (test code = 415) EOSINOPHILS ABSOLUTE COUNT 0.34 K/ L 0.04-0.36 (BEAKER) (test code = 416) BASOPHILS ABSOLUTE COUNT (BEAKER) 0.07 K/ L 0.01-0.08 (test code = 417) IMMATURE GRANULOCYTES-RELATIVE 1 % 0-1 PERCENT (BEAKER) (test code = 2801) SARS-CoV2/RT-PCR (Asymptomatic ONLY)2020-12-04 23:22:00 Test Item Value Reference Range Interpretation Comments SARS-COV2/RT-PCR (test Negative Negative code = 68261-5) GERALD (test code = GERALD) Negative result for this test determines that SARS-CoV-2 RNA was not present in the specimen above the Limit of Detection (LOD). However, Negative results do not preclude SARS-CoV-2 infection and should not be used as the sole basis for treatment or patient management decisions. Negative results must be combined with clinical observations, patient history, and epidemiological information. A false negative result may occur if a specimen is improperly collected, transported, or handled. A false negative result should be considered if patient's recent exposures or clinical presentation indicate that COVID-19 (SARS-CoV-2) is likely and diagnostic tests for other causes of illness are negative. Re-testing should be considered in cases of suspected false negatives. The limit of detection for this assay is 100 copies/mL. This SARS-CoV-2 test is a real-time RT_PCR test intended for the qualitative detection of nucleic acid from SARS-CoV-2 in a nasopharyngeal swab specimen collected from individuals suspected of COVID-19 by their healthcare provider. This test has not been Food and Drug Administration (FDA) cleared or approved. This is a modified version of an approved Emergency Use Authorization (EUA) and is in the process of review by the FDA. Once authorized by the FDA, the issued EUA will be effective until the declaration that circumstances exist justifying the authorization of the emergency use of in vitro diagnostic tests for detection and/or diagnosis of COVID-19 is terminated under Section 564(b)(2) of the Act or the EUA is revoked under Section 564(g) of the Act. Testing was performed using the Cam[employer] SARS-CoV-2 assay. Fact Sheet for Healthcare Providers:https://www.ric [employer]illo/bebo/RT SARS-CoV-2 HCP Fact Sheet 51-474121.pdf Fact Sheet for Healthcare Patients:https://www.abd[employer] king/bebo/RT SARS-CoV-2 Patient Fact Sheet EN 51-601599W2.pdf Lab Interpretation Normal (test code = 47153-3) [facility])2020-12-04 23:22:00 Test Item Value Reference Range Interpretation Comments SARS-COV2/RT-PCR (test code = Negative Negative 3755108) Negative result for this test determines that SARS-CoV-2 RNA was not present in the specimen above the Limit of Detection (LOD). However, Negative results do not preclude SARS-CoV-2 infection and should not be used as the sole basis for treatment or patient management decisions. Negative results must be combined with clinical observations, patient history, and epidemiological information. A false negative result may occur if a specimen is improperly collected, transported, or handled. A false negative result should be considered if patient's recent exposures or clinical presentation indicate that COVID-19 (SARS-CoV-2) is likely and diagnostic tests for other causes of illness are negative. Re-testing should be considered in cases of suspected false negatives.The limit of detection for this assay is 100 copies/mL.This SARS-CoV-2 test is a real-time RT_PCR test intended for the qualitative detection of nucleic acid from SARS-CoV-2 in a nasopharyngeal swab specimen collected from individuals suspected of COVID-19 by their healthcare provider.This test has not been Food and Drug Administration (FDA) cleared or approved. This is a modified version of an approved Emergency Use Authorization (EUA) and is in the process of review by the FDA. Once authorized by the FDA, the issued EUA will be e ffective until the declaration that circumstances exist justifying the authorization of the emergency use of in vitro diagnostic tests for detection and/or diagnosis of COVID-19 is terminated under Section 564(b)(2) of the Act or the EUA is revoked under Section 564(g) of the Act.Testing was performedusing the Campos SARS-CoV-2 assay.Fact Sheet for Healthcare Providers:https://www.[employer]/bebo/RT SARS-CoV-2 HCP Fact Sheet 51- 651303.pdfFact Sheet for Healthcare Patients:https://www.[employer]/bebo/RT SARS-CoV-2 Patient Fact Sheet EN 51-297313Q4.pdfHIGH SENSITIVITY TROPONIN I 2020-12-04 19:21:00 Test Item Value Reference Range Interpretation Comments HIGH SENSITIVITY 8 pg/ml See_Comment [Automated message] TROPONIN I (test code = The system which [id number]) generated this result transmitted ref erence range: <=17. Th e reference range was not used to interpr et this result as normal/abnormal . Mobile Equipment Operator ID - geri Mann ROTARY ENGINE ASSEMBLER STAT High Sensitivity Troponin-I results should be used in conjunction with other diagnostic information such as ECG, clinical observations and information, and patient symptoms to aid in the diagnosis of DE.2D Echo W/Doppler(CW/PW/Color)2020-12-04 17:56:11Ejection FractionSLEH ECHO HEARTLAB MKCKESSON [facility]- PE TEST [id number] 06:05:00Unlisted Reason for Exam - Click Yes and Enter Reason Below->No [facility] : 1940 Sex: FFINAL REPORT EXAM/TECHNIQUE: CT angiography of the chest pulmonary embolus protocol INDICATION: Concern for pulmonary embolism. COMPARISON: None. FINDINGS: Lower Neck: Unremarkable. Parenchyma/Pleura: Bilateral patchy groundglass opacities are present in the lungs. 13 mm left lower lobe pulmonary nodule. Small bilateral pleural effusions. Septal thickening and peribronchial thickening is present. Airways: Unremarkable. Cardiac: Cardiomegaly. Mediastinum/lymph nodes: No lymphadenopathy. Vessels: No filling defects in the main, lobar, or segmental pulmonary arteries. Osseous: No acute osseous process. No suspicious osseous lesion. Upper abdomen: Unremarkable. Impression: 1. No acute pulmonary embolism.2. Bilateral groundglass opacities, bilateral pleural effusions, and interstitial thickening may represent pulmonary edema and/or infection.3. Left lower lobe pulmonary nodule measuring 13 mm. Consider follow- up CT in three months, PET/CT, or tissue sampling. Signed: Cosme Alvarez [facility] Verified Date/Time: 12/04/2020 06:05:30 HEPATIC FUNCTION [id number] 06:00:00 Test Item Value Reference Range Interpretation Comments TOTAL PROTEIN (BEAKER) (test code = 5.2 gm/dL 6.0-8.3 L 770) ALBUMIN (BEAKER) (test code = 1145) 2.7 g/dL 3.5-5.0 L BILIRUBIN TOTAL (BEAKER) (test code 0.6 mg/dL 0.2-1.2 = 377) BILIRUBIN DIRECT (BEAKER) (test 0.3 mg/dL 0.1-0.5 code = 706) ALKALINE PHOSPHATASE (BEAKER) (test 92 U/L 40-150 code = 346) AST (SGOT) (BEAKER) (test code = 14 U/L 5-34 353) ALT (SGPT) (BEAKER) (test code = 7 U/L 6-55 347) Mobile Equipment Operator ID - EMIL MOperator ID - PIAYA LBASIC METABOLIC [id number] 05:13:00 Test Item Value Reference Range Interpretation Comments SODIUM (BEAKER) 139 meq/L 136-145 (test code = 381) POTASSIUM (BEAKER) 4.0 meq/L 3.5-5.1 (test code = 379) CHLORIDE (BEAKER) 110 meq/L 98-107 H (test code = 382) CO2 (BEAKER) (test 24 meq/L 22-29 code = 355) BLOOD UREA NITROGEN 14 mg/dL 7-21 (BEAKER) (test code = 354) CREATININE (BEAKER) 1.05 mg/dL 0.57-1.25 (test code = 358) GLUCOSE RANDOM 81 mg/dL 70-105 (BEAKER) (test code = 652) CALCIUM (BEAKER) 8.4 mg/dL 8.4-10.2 (test code = 697) EGFR (BEAKER) (test 51 mL/min/1.73 ESTIMA FIOR GFR IS code = 1092) sq m NOT ACCURATE CREATININE CLEARANCE IN PREDICTING GLOMERULAR FILTRATION RATE . ESTIMATED GFR I S NOT APPLICABLE FOR DIALYSIS PATIEN TS. Mobile Equipment Operator ID - EMIL MVitamin B12 and [id number] 04:44:00 Test Item Value Reference Range Interpretation Comments Vitamin B12 (test 272 pg/mL 213-816 code = 2132-9) Folate (test code = 7.70 ng/mL See_Comment [Automa fior 2284-8) message] The system which generated this result transmit fior reference range : >=7.00. The reference range was not used to interpret this result as normal/abnormal . GERALD (test code = GERALD) Mobile Equipment Operator ID - EMIL Field Lab Interpretation Normal (test code = 17997-3) [facility] CenterVITAMIN B12 AND [id number] 04:44:00 Test Item Value Reference Range Interpretation Comments VITAMIN B12 (BEAKER) 272 pg/mL 213-816 (test code = 774) FOLATE (BEAKER) 7.70 ng/mL See_Comment [Automated message] (test code = 362) The system which generated this result transmitted ref erence range: >=7.00. The reference range was not used to interpr et this result as normal/abnormal . Mobile Equipment Operator ID - EMIL MRAD, CHEST, 1 VIEW, NON [id number] 04:41:00Reason for exam:->afibShould this be performed at the bedside?->Yes [facility] : 1940 Sex: FFINAL REPORT EXAM/TECHNIQUE: Single view frontal radiograph of the chest. INDICATION: Atrial fibrillation. COMPARISON: None. FINDINGS: Devices/Objects: None. Lungs: No focal consolidation. No pleural effusion. No pneumothorax. Heart/Mediastinum: No cardiomegaly. Mild interstitial thickening. Osseous: No acute osseous process. No suspicious osseous lesion. Upper abdomen: Unremarkable. Impression: Mild interstitial thickening may represent interstitial pulmonary edema. Signed: Cosme Alvarez MDReport Verified Date/Time: 12/04/2020 04:41:03 HIGH SENSITIVITY TROPONIN [id number] 04:36:00 Test Item Value Reference Range Interpretation Comments HIGH SENSITIVITY 8 pg/ml See_Comment [Automated message] TROPONIN I (test code = The system which [id number]) generated this result transmitted ref erence range: <=17. Th e reference range was not used to interpr et this result as normal/abnormal . Mobile Equipment Operator ID - EMIL MThe ROTARY ENGINE ASSEMBLER STAT High Sensitivity Troponin-I results should be used in conjunction with other diagnostic information such as ECG, clinical observations and information, and patient symptoms to aid in the diagnosis of DE.B-TYPE NATRIURETIC FACTOR (BNP)2020-12-04 04:27:00 Test Item Value Reference Range Interpretation Comments B-TYPE NATRIURETIC PEPTIDE (BEAKER) 144 pg/mL 0-100 H (test code = 700) Mobile Equipment Operator ID - EMIL MCBC W/PLT COUNT & AUTO [id number] 04:01:00 Test Item Value Reference Range Interpretation Comments WHITE BLOOD CELL COUNT (BEAKER) 6.7 K/ L 3.5-10.5 (test code = 775) RED BLOOD CELL COUNT (BEAKER) 3.83 M/ L 3.93-5.22 L (test code = 761) HEMOGLOBIN (BEAKER) (test code = 12.3 GM/DL 11.2-15.7 410) HEMATOCRIT (BEAKER) (test code = 38.7 % 34.1-44.9 411) MEAN CORPUSCULAR VOLUME (BEAKER) 101.0 fL 79.4-94.8 H (test code = 753) MEAN CORPUSCULAR HEMOGLOBIN 32.1 pg 25.6-32.2 (BEAKER) (test code = 751) MEAN CORPUSCULAR HEMOGLOBIN CONC 31.8 GM/DL 32.2-35.5 L (BEAKER) (test code = 752) RED CELL DISTRIBUTION WIDTH 13.5 % 11.7-14.4 (BEAKER) (test code = 412) PLATELET COUNT (BEAKER) (test 205 K/CU MM 150-450 code = 756) MEAN PLATELET VOLUME (BEAKER) 9.7 fL 9.4-12.3 (test code = 754) NUCLEATED RED BLOOD CELLS 0 /100 WBC 0-0 (BEAKER) (test code = 413) NEUTROPHILS RELATIVE PERCENT 47 % (BEAKER) (test code = 429) LYMPHOCYTES RELATIVE PERCENT 38 % (BEAKER) (test code = 430) MONOCYTES RELATIVE PERCENT 10 % (BEAKER) (test code = 431) EOSINOPHILS RELATIVE PERCENT 4 % (BEAKER) (test code = 432) BASOPHILS RELATIVE PERCENT 1 % (BEAKER) (test code = 437) NEUTROPHILS ABSOLUTE COUNT 3.14 K/ L 1.56-6.13 (BEAKER) (test code = 670) LYMPHOCYTES ABSOLUTE COUNT 2.55 K/ L 1.18-3.74 (BEAKER) (test code = 414) MONOCYTES ABSOLUTE COUNT (BEAKER) 0.66 K/ L 0.24-0.36 H (test code = 415) EOSINOPHILS ABSOLUTE COUNT 0.23 K/ L 0.04-0.36 (BEAKER) (test code = 416) BASOPHILS ABSOLUTE COUNT (BEAKER) 0.05 K/ L 0.01-0.08 (test code = 417) IMMATURE GRANULOCYTES-RELATIVE 1 % 0-1 PERCENT (BEAKER) (test code = 2801) TSH/Free T4 If [id number] 00:19:00 Test Item Value Reference Range Interpretation Comments TSH (test code = 1.723 See_Comment [Automated 01970-6) message] The system which generated this result transmit fior reference range : 0.350 - 4.940 uIU/mL. The reference range was not used to interpret this result as normal/abnormal . GERALD (test code = GERALD) Mobile Equipment Operator ID - RUDOLPHAYA L Lab Interpretation Normal (test code = 26894-7) [facility] CenterTSH/FREE T4 IF [id number] 00:19:00 Test Item Value Reference Range Interpretation Comments THYROID STIMULATING HORMONE 1.723 uIU/mL 0.350-4.940 (BEAKER) (test code = 772) Mobile Equipment Operator ID - RUDOLPHAYA LHIGH SENSITIVITY TROPONIN [id number] 00:02:00 Test Item Value Reference Range Interpretation Comments HIGH SENSITIVITY 7 pg/ml See_Comment [Automated message] TROPONIN I (test code = The system which [id number]) generated this result transmitted ref erence range: <=17. Th e reference range was not used to interpr et this result as normal/abnormal . Mobile Equipment Operator ID - DBThe ROTARY ENGINE ASSEMBLER STAT High Sensitivity Troponin-I results should be used in conjunctionwith other diagnostic information such as ECG, clinical observations and information, and patient symptoms to aid in the diagnosis of DE.[id number] 23:58:00 Test Item Value Reference Range Interpretation Comments Phosphorus (test code = 3.3 mg/dL 2.3-4.7 2777-1) GERALD (test code = GERALD) Mobile Equipment Operator ID - DB Lab Interpretation (test Normal code = 86248-3) [facility] CenterBASIC METABOLIC [id number] 23:58:00 Test Item Value Reference Range Interpretation Comments SODIUM (BEAKER) 138 meq/L 136-145 (test code = 381) POTASSIUM (BEAKER) 4.0 meq/L 3.5-5.1 (test code = 379) CHLORIDE (BEAKER) 109 meq/L 98-107 H (test code = 382) CO2 (BEAKER) (test 20 meq/L 22-29 L code = 355) BLOOD UREA NITROGEN 14 mg/dL 7-21 (BEAKER) (test code = 354) CREATININE (BEAKER) 1.09 mg/dL 0.57-1.25 (test code = 358) GLUCOSE RANDOM 83 mg/dL 70-105 (BEAKER) (test code = 652) CALCIUM (BEAKER) 8.1 mg/dL 8.4-10.2 L (test code = 697) EGFR (BEAKER) (test 48 mL/min/1.73 ESTIMA FIOR GFR IS code = 1092) sq m NOT ACCURATE CREATININE CLEARANCE IN PREDICTING GLOMERULAR FILTRATION RATE . ESTIMATED GFR I S NOT APPLICABLE FOR DIALYSIS PATIEN TS. Mobile Equipment Operator ID - [id number] 23:58:00 Test Item Value Reference Range Interpretation Comments MAGNESIUM (BEAKER) (test code = 1.7 mg/dL 1.6-2.6 627) Mobile Equipment Operator ID - [id number] 23:58:00 Test Item Value Reference Range Interpretation Comments PHOSPHORUS (BEAKER) (test code = 3.3 mg/dL 2.3-4.7 604) Mobile Equipment Operator ID - DBHEPATIC FUNCTION [id number] 23:58:00 Test Item Value Reference Range Interpretation Comments TOTAL PROTEIN (BEAKER) (test code = 5.4 gm/dL 6.0-8.3 L 770) ALBUMIN (BEAKER) (test code = 1145) 2.8 g/dL 3.5-5.0 L BILIRUBIN TOTAL (BEAKER) (test code 0.7 mg/dL 0.2-1.2 = 377) BILIRUBIN DIRECT (BEAKER) (test 0.3 mg/dL 0.1-0.5 code = 706) ALKALINE PHOSPHATASE (BEAKER) (test 92 U/L 40-150 code = 346) AST (SGOT) (BEAKER) (test code = 14 U/L 5-34 353) ALT (SGPT) (BEAKER) (test code = 9 U/L 6-55 347) Mobile Equipment Operator ID - TVB-[id number] 23:42:00 Test Item Value Reference Range Interpretation Comments D-Dimer, Quant (test 1.26 See_Comment H [Autom ated code = 16289-9) message] The system which generated this result transmitted reference range : <0.50 MG/L FEU. The reference range was not used to interpr et this result as normal/abnormal . GERALD (test code = GERALD) Intended Use: The D-Dimer Assay can be used to aid in the diagnosis of Deep Vein Thrombosis (DVT) and Pulmonary Embolism Disease (PED).In patients with low pre-test probability, various studies concerning STA Liatest D-dimer test have reported that with a cutoff value of 0.50 MG/L FEU, the Negative Predictive Value (NPV) regarding the exclusion of thrombosis is within 95-100% range. Lab Interpretation Abnormal (test code = 49416-6) [facility] CenterD-[id number] 23:42:00 Test Item Value Reference Range Interpretation Comments D-DIMER QUANTITATIVE (BEAKER) 1.26 MG/L FEU <0.50 H (test code = 671) Intended Use: The D-Dimer Assay can be used to aid in the diagnosis of Deep Vein Thrombosis (DVT) and Pulmonary Embolism Disease (PED).In patients with low pre- test probability, various studies concerning STA Liatest D-dimer test have reported that with a cutoff value of 0.50 MG/L FEU, the Negative Predictive Value (NPV) regarding the exclusion of thrombosis is within 95-100% range. Prothrombin time/[id number] 23:39:00 Test Item Value Reference Interpretation Comments Range Protime (test code = 15.4 See_Comment H [Autom ated 5902-2) message] The system which generated this result transmitted reference range : 11.9 - 14.2 seconds. The reference range was not used to interpret this result as normal/abnormal . INR (test code = 1.24 See_Comment [Automated 6971-6) message] The system which generated this result transmitted reference range : <=5.90. The reference range was not used to interpret this result as normal/abnormal . GERALD (test code = RECOMMENDED GERALD) COUMADIN/WARFARIN INR THERAPY RANGESSTANDARD DOSE: 2.0 - 3.0 Includes: PROPHYLAXIS for venous thrombosis, systemic embolization; TREATMENT for venous thrombosis and/or pulmonary embolus.HIGH RISK: Target INR is 2.5-3.5 for patients with mechanical heart valves. Lab Interpretation Abnormal (test code = 40975-0) [id number] 23:39:00 Test Item Value Reference Range Interpretation Comments PROTIME (BEAKER) 15.4 seconds 11.9-14.2 H (test code = 759) INR (BEAKER) (test 1.24 See_Comment [Automat ed message] code = 370) The system [employer] generated this result transmitted ref erence range: <=5.90. The reference range was not used to int erpret this result as normal/abnormal . RECOMMENDED COUMADIN/WARFARIN INR THERAPY RANGESSTANDARD DOSE: 2.0 - 3.0 Includes: PROPHYLAXIS forvenous thrombosis, systemic embolization; TREATMENT for venous thrombosis and/or pulmonary embolus.HIGH RISK: Target INR is 2.5-3.5 for patients with mechanical heart valves.CBC W/PLT COUNT & AUTO DIFFERENTIAL 2020-12-03 23:32:00 Test Item Value Reference Range Interpretation Comments WHITE BLOOD CELL COUNT (BEAKER) 7.9 K/ L 3.5-10.5 (test code = 775) RED BLOOD CELL COUNT (BEAKER) 3.96 M/ L 3.93-5.22 (test code = 761) HEMOGLOBIN (BEAKER) (test code = 12.7 GM/DL 11.2-15.7 410) HEMATOCRIT (BEAKER) (test code = 40.3 % 34.1-44.9 411) MEAN CORPUSCULAR VOLUME (BEAKER) 101.8 fL 79.4-94.8 H (test code = 753) MEAN CORPUSCULAR HEMOGLOBIN 32.1 pg 25.6-32.2 (BEAKER) (test code = 751) MEAN CORPUSCULAR HEMOGLOBIN CONC 31.5 GM/DL 32.2-35.5 L (BEAKER) (test code = 752) RED CELL DISTRIBUTION WIDTH 13.3 % 11.7-14.4 (BEAKER) (test code = 412) PLATELET COUNT (BEAKER) (test 210 K/CU MM 150-450 code = 756) MEAN PLATELET VOLUME (BEAKER) 9.3 fL 9.4-12.3 L (test code = 754) NUCLEATED RED BLOOD CELLS 0 /100 WBC 0-0 (BEAKER) (test code = 413) NEUTROPHILS RELATIVE PERCENT 58 % (BEAKER) (test code = 429) LYMPHOCYTES RELATIVE PERCENT 31 % (BEAKER) (test code = 430) MONOCYTES RELATIVE PERCENT 8 % (BEAKER) (test code = 431) EOSINOPHILS RELATIVE PERCENT 2 % (BEAKER) (test code = 432) BASOPHILS RELATIVE PERCENT 1 % (BEAKER) (test code = 437) NEUTROPHILS ABSOLUTE COUNT 4.59 K/ L 1.56-6.13 (BEAKER) (test code = 670) LYMPHOCYTES ABSOLUTE COUNT 2.42 K/ L 1.18-3.74 (BEAKER) (test code = 414) MONOCYTES ABSOLUTE COUNT (BEAKER) 0.63 K/ L 0.24-0.36 H (test code = 415) EOSINOPHILS ABSOLUTE COUNT 0.17 K/ L 0.04-0.36 (BEAKER) (test code = 416) BASOPHILS ABSOLUTE COUNT (BEAKER) 0.06 K/ L 0.01-0.08 (test code = 417) IMMATURE GRANULOCYTES-RELATIVE 1 % 0-1 PERCENT (BEAKER) (test code = 2801) MD External Study [id number] 13:55:15This exam was not acquired at a [facility] facility and has not been interpreted by a [facility] Provider. The exam was imported into our imaging system.[facility]
--- NOTE | 2020-12-29 12:15 | RAD REPORT ---
EXAM DESCRIPTION: RAD - Ankle Right 3 View - 12/29/2020 12:08 pm CLINICAL HISTORY: PAIN COMPARISON: Ankle Left 3 View dated 01/25/2009 FINDINGS: Distal fibular fracture which is obliquely oriented and extends to the tibiofibular syndes mosis. Well corticated fragment adjacent to the medial malleolus favored to be a remote fracture. IMPRESSION: Acute distal fibular fracture. Well corticated fragment adjacent to the medial malleolus favored chronic avulsion fracture.
[2020-12-29] MEDS ORDERED: FENTANYL CITR 100 MCG/2 ML ONE (12:46)
--- NOTE | 2020-12-29 12:55 | ER ---
Nurse's Notes [facility] Name: Agnes Calabrese Age: 80 yrs Sex: Female : 1940 Arrival Date: 12/29/2020 Time: 11:53 Bed 13 Private MD: Diagnosis: Displaced oblique fracture of shaft of right fibula, initial encounter for closed fracture Presentation: 12/29 11:50 Chief complaint: EMS states: Pt is from [facility]; Pt was walking without walker, vg1 turned the corner in room and lost footing and fell. Denies head injury/LOC. Pt does take Eliquis; Pt c/o Right ankle pain. 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 11:50 Method Of Arrival: EMS: [facility] vg1 11:50 Coronavirus screen: Vaccine status: Patient reports receiving the 2nd dose of the covid vg1 vaccine. Ebola Screen: Patient negative for fever greater than or equal to 101.5 degrees Fahrenheit, and additional compatible Ebola Virus Disease symptoms. Initial Sepsis Screen: Does the patient meet any 2 criteria? No. Patient's initial sepsis screen is negative. Does the patient have a suspected source of infection? No. Patient's initial sepsis screen is negative. Risk Assessment: Do you want to hurt yourself or someone else? Patient reports no desire to harm self or others. Onset of symptoms was December 29, 2020. 11:50 Acuity: WARREN 3 vg1 Triage Assessment: 12:02 General: Appears in no apparent distress. uncomfortable, Behavior is calm, cooperative. vg1 Pain: Complains of pain in Right ankle Pain currently is 8 out of 10 on a pain scale. Historical: - Allergies: 12:02 clindamycin HCl (bulk); vg1 12:02 Darvocet-N 100; vg1 12:02 PENICILLINS; vg1 12:02 Strawberries; vg1 12:02 Sulfa (Sulfonamide Antibiotics); vg1 - Home Meds: 12:02 alprazolam 0.25 mg Oral tab 1 tab twice a day for Anxiety [Active]; benzonatate 200 mg vg1 Oral cap 1 cap 3 times per day [Active]; bupropion HCl 150 mg Oral Tb24 1 tab once daily [Active]; bupropion HCl 300 mg Oral Tb24 1 tab once daily [Active]; clopidogrel 75 mg Oral tab 1 tab once daily [Active]; donepezil 10 mg Oral tab 1 tab once daily [Active]; doxepin 50 mg Oral cap 1 cap once daily [Active]; duloxetine 60 mg Oral cpDR 2 caps once daily [Active]; Ellura 200 mg Oral cap daily [Active]; gabapentin 300 mg Oral cap 1 cap 3 times per day [Active]; indapamide 2.5 mg Oral tab 1 tab once daily [Active]; levothyroxine 75 mcg tab 1 tab once daily [Active]; magnesium oxide 500 mg Oral tab 500 mg after meals and before bedtime [Active]; metoprolol succinate 25 mg Oral Tb24 1 tab once daily [Active]; pantoprazole 40 mg Oral grps 1 packet once daily [Active]; Trelegy Ellipta 100-62.5-25 mcg inhalation dsdv 1 puff once daily [Active]; topiramate 200 mg Oral cp24 1 cap twice a day [Active]; tizanidine 4 mg Oral tab 1 tab daily [Active]; simvastatin 40 mg Oral tab 1 tab once daily [Active]; quetiapine 200 mg Oral Tb24 1 tab once daily [Active]; potassium chloride 20 mEq Oral TbER 1 tab 2 times per day [Active]; memantine 10 mg Oral tab 1 tab 2 times per day [Active]; hydrocodone-acetaminophen 7.5-325 mg Oral tab 1 tab every 8 hours [Active]; Eliquis 5 mg oral tab [Active]; - PMHx: 12:02 Cancer; Depression; Fibromyalgia; GERD; insomnia; lymphedema; skipped heart beats; vg1 - Immunization history:: Adult Immunizations up to date, Client reports receiving the 2nd dose of the Covid vaccine. - Social history:: Smoking status: Patient denies any tobacco usage or history of. - Family history:: not pertinent. - Hospitalizations: : No recent hospitalization is reported. Screenin:27 Abuse screen: Denies threats or abuse. Denies injuries from another. Nutritional zb screening: No deficits noted. Tuberculosis screening: No symptoms or risk factors identified. Fall Risk Fall in past 12 months (25 points). No secondary diagnosis (0 pts). No IV (0 pts). Ambulatory Aid- None/Bed Rest/Nurse Assist (0 pts). Gait- Impaired (20 pts.). Mental Status- Oriented to own ability (0 pts). Total Arredondo Fall Scale indicates High Risk Score (45 or more points). Fall prevention measures have been instituted. Side Rails Up X 2 Placed Close to Nursing Station Frequent Obs/Assessments Occuring Family Present and informed to notify staff if the need to leave the bedside As available patient and family educated on Fall Prevention Program and Strategies. Assessment: 12:04 General: Appears in no apparent distress. Pain: Complains of pain in right medial zb malleolus, right ankle and anterior aspect of right ankle Pain currently is 8 out of 10 on a pain scale. Quality of pain is described as aching, sharp. Neuro: Level of Consciousness is awake, alert, obeys commands, Oriented to person, place, time, situation. Cardiovascular: Patient's skin is warm and dry. Respiratory: Airway is patent Respiratory effort is even, unlabored. Musculoskeletal: Range of motion: limited in right ankle. 13:00 Reassessment: Patient appears in no apparent distress at this time. Patient and/or zb family updated on plan of care and expected duration. Pain level reassessed. Patient is alert, oriented x 3, equal unlabored respirations, skin warm/dry/pink. splint completed. ED discussed care with patient. Vital Signs: 11:50 BP 107 / 78; Pulse 60; Resp 18; Temp 98.0(O); Pulse Ox 98% ; Weight 92.99 kg; Height 5 vg1 ft. 3 in. (160.02 cm); Pain 8/10; 13:30 BP 102 / 80; Pulse 65; Resp 16; Pulse Ox 100% on R/A; zb 11:50 Body Mass Index 36.31 (92.99 kg, 160.02 cm) vg1 ED Course: 11:53 Patient arrived in ED. rn 11:53 Nick Herring MD is Attending Physician. rn 12:00 Lorena Soto RN is Primary Nurse. zb 12:02 Triage completed. vg1 12:02 Arm band placed on. vg1 12:08 XRAY Ankle RIGHT 3 view In Process Unspecified. EDMS 12:26 Orthoglass splint: Posterior short lleg splint applied on stirrup splint applied on mh5 right leg. 12:30 Patient has correct armband on for positive identification. Bed in low position. Call zb light in reach. Side rails up X 1. Pulse ox on. NIBP on. Door closed. Noise minimized. 12:53 Stefan Brown MD is Referral Physician. rn 13:33 No provider procedures requiring assistance completed. Patient did not have IV access zb during this emergency room visit. Administered Medications: 12:25 Drug: fentaNYL (PF) 25 mcg {Note: +2.} Route: IM; Site: right deltoid; zb 13:00 Follow up: Response: No adverse reaction; Pain is decreased; RASS: Alert and Calm (0) zb Outcome: 12:54 Discharge ordered by . rn 13:00 Discharged to home via wheelchair, with friend. zb 13:00 Condition: stable 13:00 Discharge instructions given to patient, family, Instructed on discharge instructions, follow up and referral plans. Demonstrated understanding of instructions, follow-up care. 13:33 Patient left the ED. zb Signatures: Dispatcher [employer] EDMS Nick Herring MD MD rn Martinez, [facility] Connie Lieberman RN RN 1 Lorena Soto RN RN zb
--- NOTE | 2020-12-29 12:55 | EDPHYS ---
Physician Documentation [facility] Name: Agnes Calabrese Age: 80 yrs Sex: Female : 1940 Arrival Date: 12/29/2020 Time: 11:53 Bed 13 Private MD: ED Physician Nick Herring HPI: 12/29 12:00 This 80 yrs old Female presents to ER via Unassigned with complaints of ankle rn injury and pain. 12:00 The patient presents with decreased range of motion, a deformity, an injury, pain. The rn complaints affect the right ankle. Onset: The symptoms/episode began/occurred just prior to arrival. Associated signs and symptoms: Pertinent positives: swelling, Pertinent negatives: fever, weakness. Modifying factors: The symptoms are alleviated by elevation of extremity, Splinting of extremity the symptoms are aggravated by movement. Severity of symptoms: At their worst the symptoms were moderate, in the emergency department the symptoms are unchanged. The patient has not experienced similar symptoms in the past. The patient has not recently seen a physician. Patient reports trying to walk around the structure without using walker, tripped, misstep and fall. Reports right ankle injury and pain. Unable to walk on it. Improved after splinting but still feels broken. Does not take any anticoagulation.. Historical: - Allergies: 12:02 clindamycin HCl (bulk); vg1 12:02 Darvocet-N 100; vg1 12:02 PENICILLINS; vg1 12:02 Strawberries; vg1 12:02 Sulfa (Sulfonamide Antibiotics); vg1 - Home Meds: 12:02 alprazolam 0.25 mg Oral tab 1 tab twice a day for Anxiety [Active]; benzonatate 200 mg vg1 Oral cap 1 cap 3 times per day [Active]; bupropion HCl 150 mg Oral Tb24 1 tab once daily [Active]; bupropion HCl 300 mg Oral Tb24 1 tab once daily [Active]; clopidogrel 75 mg Oral tab 1 tab once daily [Active]; donepezil 10 mg Oral tab 1 tab once daily [Active]; doxepin 50 mg Oral cap 1 cap once daily [Active]; duloxetine 60 mg Oral cpDR 2 caps once daily [Active]; Ellura 200 mg Oral cap daily [Active]; gabapentin 300 mg Oral cap 1 cap 3 times per day [Active]; indapamide 2.5 mg Oral tab 1 tab once daily [Active]; levothyroxine 75 mcg tab 1 tab once daily [Active]; magnesium oxide 500 mg Oral tab 500 mg after meals and before bedtime [Active]; metoprolol succinate 25 mg Oral Tb24 1 tab once daily [Active]; pantoprazole 40 mg Oral grps 1 packet once daily [Active]; Trelegy Ellipta 100-62.5-25 mcg inhalation dsdv 1 puff once daily [Active]; topiramate 200 mg Oral cp24 1 cap twice a day [Active]; tizanidine 4 mg Oral tab 1 tab daily [Active]; simvastatin 40 mg Oral tab 1 tab once daily [Active]; quetiapine 200 mg Oral Tb24 1 tab once daily [Active]; potassium chloride 20 mEq Oral TbER 1 tab 2 times per day [Active]; memantine 10 mg Oral tab 1 tab 2 times per day [Active]; hydrocodone-acetaminophen 7.5-325 mg Oral tab 1 tab every 8 hours [Active]; Eliquis 5 mg oral tab [Active]; - PMHx: 12:02 Cancer; Depression; Fibromyalgia; GERD; insomnia; lymphedema; skipped heart beats; vg1 - Immunization history:: Adult Immunizations up to date, Client reports receiving the 2nd dose of the Covid vaccine. - Social history:: Smoking status: Patient denies any tobacco usage or history of. - Family history:: not pertinent. - Hospitalizations: : No recent hospitalization is reported. ROS: 12:00 Constitutional: Negative for fever, chills, and weight loss, Eyes: Negative for injury, rn pain, redness, and discharge, Neck: Negative for injury, pain, and swelling, Cardiovascular: Negative for chest pain, palpitations, and edema, Respiratory: Negative for shortness of breath, cough, wheezing, and pleuritic chest pain, Abdomen/GI: Negative for abdominal pain, nausea, vomiting, diarrhea, and constipation, Back: Negative for injury and pain, MS/Extremity: Positive for injury and deformity to right ankle Skin: No open wounds or lacerations. Neuro: Negative for headache, weakness, numbness, tingling, and seizure. 12:00 All other systems are negative. Exam: 12:00 Constitutional: This is a well developed, well nourished patient who is awake, alert, rn appears in pain Head/Face: Normocephalic, atraumatic. Neck: No midline cervical tenderness Chest/axilla: Normal chest wall appearance and motion. Nontender with no deformity. Cardiovascular: Regular rate and rhythm. No pulse deficits. Respiratory: No increased work of breathing, no retractions or nasal flaring. Abdomen/GI: Soft, nontender Skin: Warm, dry with normal turgor. Normal color with no rashes, no lesions, and no evidence of cellulitis. MS/ Extremity: Pulses equal, no cyanosis. Moderate swelling and deformity to right ankle. No open wounds or bleeding. Appears to be laterally displaced. No pain or tenderness of right hip/femur/knee/proximal tib-fib. Neuro: Awake and alert, GCS 15, oriented to person, place, time, and situation. Motor strength 5/5 in all extremities. Sensory grossly intact. Vital Signs: 11:50 BP 107 / 78; Pulse 60; Resp 18; Temp 98.0(O); Pulse Ox 98% ; Weight 92.99 kg; Height 5 vg1 ft. 3 in. (160.02 cm); Pain 8/10; 13:30 BP 102 / 80; Pulse 65; Resp 16; Pulse Ox 100% on R/A; zb 11:50 Body Mass Index 36.31 (92.99 kg, 160.02 cm) vg1 Procedures: 12:51 Splinting: Splint applied to right ankle using Orthoglass splint, applied by myself. rn Examined by de, post splint application: neurovascular intact, 2+ distal pulses palpable, brisk capillary refill noted, Patient tolerated well, Minimal compression and manipulation applied during splinting. MDM: 11:53 Patient medically screened. rn 12:51 Differential diagnosis: fracture, sprain. Data reviewed: vital signs, nurses notes, rn radiologic studies, plain films, and as a result, I will discharge patient. Test interpretation: by ED physician or midlevel provider: plain radiologic studies, X-ray right ankle shows distal fibular fracture with minimal displacement. No evidence of ankle dislocation.. Counseling: I had a detailed discussion with the patient and/or guardian regarding: the historical points, exam findings, and any diagnostic results supporting the discharge/admit diagnosis, radiology results, the need for outpatient follow up, to return to the emergency department if symptoms worsen or persist or if there are any questions or concerns that arise at home. Response to treatment: the patient's symptoms have markedly improved after treatment, and as a result, I will discharge patient. Special discussion: I discussed with the patient/guardian in detail that at this point there is no indication for admission to the hospital. It is understood, however, that if the symptoms persist or worsen the patient needs to return immediately for re-evaluation. Based on the history and exam findings, there is no indication for further emergent testing or inpatient evaluation. I discussed with the patient/guardian the need to see the orthopedic surgeon for further evaluation of the symptoms. ED course: Patient states no pain after splinting and fentanyl. Has a scooter at home and understands nonweightbearing and follow-up with orthopedics.. 12/29 11:57 Order name: XRAY Ankle RIGHT 3 view; Complete Time: 12:16 rn 12/29 12:12 Order name: Splint - Ankle: Orthoglass: Stirrup; Complete Time: 12:26 rn 12/29 12:12 Order name: Splint - Ankle: Posterior; Complete Time: 12:26 rn Administered Medications: 12:25 Drug: fentaNYL (PF) 25 mcg {Note: +2.} Route: IM; Site: right deltoid; zb 13:00 Follow up: Response: No adverse reaction; Pain is decreased; RASS: Alert and Calm (0) zb Disposition Summary: 12/29/20 12:54 Discharge Ordered Location: Home rn Problem: new rn Symptoms: have improved rn Condition: Stable rn Diagnosis - Displaced oblique fracture of shaft of right fibula, initial encounter for closed rn fracture Followup: rn - With: Stefan Brown MD - When: 5 - 6 days - Reason: Recheck today's complaints, Re-evaluation by your physician Discharge Instructions: - Discharge Summary Sheet rn - Cast or Splint Care, Adult rn - Nondisplaced Fibular Ankle Fracture Treated With Immobilization rn Forms: - Medication Reconciliation Form rn - Thank You Letter rn - 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
== END 2020-12-29 13:33 | disposition home or self-care (01) ==
LOC: ER 11:52
PROC: 2W3QX1Z Immobilization of Right Lower Leg using Splint (ICD-10-PCS; principal; 2020-12-29)
DX: S82.431A Displaced oblique fracture of shaft of right fibula, initial encounter for closed fracture (principal); W01.0XXA Fall on same level from slipping, tripping and stumbling without subsequent striking against object, initial encounter; Y93.01 Activity, walking, marching and hiking; F32.9 Major depressive disorder, single episode, unspecified; M79.7 Fibromyalgia; K21.9 Gastro-esophageal reflux disease without esophagitis; Z88.0 Allergy status to penicillin; Z88.2 Allergy status to sulfonamides; Z88.3 Allergy status to other anti-infective agents; Z88.5 Allergy status to narcotic agent; Z91.018 Allergy to other foods
CPT/HCPCS: 73610; 96372; 99284; 29515; J3010

== ENCOUNTER 2021-04-18 11:37 | Inpatient (IN) | payer OTHER ==
--- OUTSIDE RECORDS SUMMARY | 2021-04-18 11:44 | XMS REPORT | Continuity of Care Document ---
:1940 Author Organization [facility] t Address [address] [place] [address] Care Team Providers Name Role Phone Farhat HOLT Primary Care Physician CHRYSTAL BARRETT Attending Clinician Unavailable Rachelle MANCILLA Attending Clinician Unavailable Rachelle Mancilla MD Attending Clinician Doctor Unassigned, Name Attending Clinician Unavailable Stevan Batista Attending Clinician Chrystal Barrett MD Attending Clinician Aleena Goetz MD Attending Clinician Jeannie Ferreira MD Attending Clinician Linda Diaz MD Attending Clinician Hilton HOLT Attending Clinician CHRYSTAL BARRETT Admitting Clinician Unavailable ALEENA GOETZ Admitting Clinician Unavailable Payers Payer Name Policy Type Policy Number Effective Date Expiration Date Stevan PATTON MANAGED [id number] 2020 MEDICARE [id number] 00:00:00 Problems Condition Condition Condition Status Onset Resolution Last Treating Co mments Source Name Details Category Date Date Treatment Clinician Date Atrial Atrial Disease Active [facility] fibr[facility] fibrillati 8-16 [facility] - on with on with 00:00: Medical RVR RVR 00 Center 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 00:00: [place] replacemen replacemen 00 Me dical t, left t, left Branch Morbid Morbid Disease Active 2015-04 [facility] obesity obesity 2-20 [place] body [place] index 00 Me dical of 50 or of 50 or Branch higher higher Morbid Morbid Disease Active 2015-04 [facility] obesity obesity 2-20 [place] of with body [place] body [place] index 00 Me dical of of Branch 40.0-49.9 40.0-49.9 CINTHIA CINTHIA Disease Active [facility] (obstructi (obstructi [facility] kes - ve sleep ve sleep Medica l apnea) apnea) Center Allergies, Adverse Reactions, Alerts Allergy Allergy Status Severity Reaction(s) Onset Inactive Treating Comm ents Source Name Type Date Date Clinician STRAWBER Allergy Active Low Rash 2020-[address] [facility] RY 8-17 [facility] 00:[facility]: Medical 00 Center Strawber Propensi Active Rash 2020-[address] [facility] ry ty to 817 [facility] - adverse 00:00: Medical reaction 00 Center s CLINDAMY Allergy Active High Rash 2020-[address] [facility] JOSE HCL 8-16 [facility] - 00:[facility]: Medical 00 Center PENICILL Allergy Active High Rash 2020-[address] [facility] IN 8-16 [facility] - 00:00: Medical 00 Center SULFA Allergy Active High Rash 2020-[address] [facility] (SULFONA 816 [facility] - MIDE 00:00: Medical ANTIBIOT 00 Center [facility]) Clindamy Propensi Active Rash 2020-[address] [facility] [address] jose Hcl ty to 8-16 [facility] - adverse 00:00: Medical reaction 00 Center s Penicill Propensi Active Rash 2020-[address] [facility] [address] in ty to 8-16 [facility] - adverse 00:00: Medical reaction 00 Center s Sulfa Propensi Active Rash 2020-[address] [facility] [address] (Sulfona ty to 8-16 [facility] - mide adverse 00:00: Medical Antibiot reaction [address] [facility]) s ACETAMIN DRUG Active Unknown-Cmnt 0 [facility] OPHEN INGREDI 6-30 ity of 00:00: [place] 00 Medical Branch PROPOXYP DRUG Active Unknown-Cmnt 2019-0 [facility] HENE 630 ity of N-ACETAM 00:00: [place] INOPHEN 00 Medical Branch Acetamin Propensi Active Unknown - 2020-0 Uni vers ophen ty to See comments 630 ity of adverse 00:00: [place] reaction 00 Medical s Branch Propoxyp Propensi Active Unknown - 2020-0 Uni vers hene ty to See comments 10-17 ity of N-Acetam adverse 00:00: [place] inophen reaction 00 Medical s Branch Clindamy Propensi Active Unknown 2020-0 Metho di jose ty to Reaction 6 st Phosphat adverse 00:00: Hospita e reaction 00 l s to drug Propoxyp Propensi Active Unknown 2020-0 Metho di hene ty to Reaction 10-17 st N-Acetam adverse 00:00: Hospita inophen reaction 00 l s to drug Penicill Propensi Active Unknown 2020-0 Metho di ins ty to Reaction 10-17 st adverse 00:00: Hospita reaction 00 l s to drug Sulfa Propensi Active Unknown 2020-0 Methodi (Sulfona ty to Reaction 10-17 st mide adverse 00:00: Hospita Antibiot reaction 00 l ics) s to drug Acetamin Propensi Active Unknown 2020-0 Metho di ophen ty to Reaction 30 st adverse 00:00: Hospita reaction 00 l s to drug CLINDAMY DRUG Active Rash 2015- Univers JOSE HCL INGREDI 2-19 ity of 00:00: [place] 00 Medical Branch PENICILL DRUG Active Anaphylaxis 2015-04 Uni vers IN INGREDI 2-19 ity of 00:00: [place] 00 Medical Branch SULFA Drug Active Rash 2015-04 Univers (SULFONA Class 2-19 ity of MIDE 00:00: [place] ANTIBIOT 00 Medical ICS) Branch Clindamy Propensi Active Rash 2015-04 Univer s jose Hcl ty to 2-19 ity of adverse 00:00: [place] reaction 00 Medical s Branch Penicill Propensi Active Anaphylaxis 2015-04 U nivers in ty to 2-19 ity of adverse 00:00: [place] reaction 00 Medical s Branch Sulfa Propensi Active Rash 2015-04 Univers (Sulfona ty to 2-19 ity of mide adverse 00:00: [place] Antibiot reaction 00 Medica l ics) s Branch Family History Family Member Diagnosis Comments Start Date Stop Date Source Natural father Heart disease [facility] Natural father Hypertension [facility] Natural father Diabetes [facility] Natural mother Asthma [facility] Social History Social Habit Start Date Stop Date Quantity Comments Source History SDOH [facility] - Alcohol Std Drinks Medica l Center History SDOH [facility] - Alcohol Binge Medical Dagoberto ter History SDOH [facility] - Alcohol Comment Medical C enter Exposure to Not sure [facility] SARS-CoV-2 (event) Medica l Branch History of tobacco Smoker Method t Hospital use Alcohol intake 2021-04-17 2021-04-17 0 /d [facility] 00:00:00 00:00:00 Medical Branch Tobacco use and 2020-12-03 2020-12-[address] [facility] [address] [facility] kes - exposure 00:00:00 00:00:00 Medical Center History SDOH 2020-12-03 2020-12-[address] [facility] - Alcohol Frequency 00:00:00 00:00:00 [facility] Cigarettes smoked 2019-10-18 2019-10-18 [facility] current (pack per 00:00:00 00:00:00 day) - Reported Cigarette 2019-10-18 2019-10-18 [facility] [place] [facility] Hosp ital pack-years 00:00:00 00:00:00 [birth year] [facility] 00:00:00 00:00:00 [facility] Branch Smoking Status Start Date Stop Date Source Never smoker [facility] Former smoker 2019-10-18 00:00:00 2019-10-18 00:00:00 [facility] Medications Ordered Filled Start Stop Current Ordering Indication Dosage Frequency Signature Comments Components Source Medication Medication Date Date Medication? Clinician (SIG) Name Name buPROPion Yes Univers XL 150 mg 8-26 ity of 24 hr 00:00: [place] tablet 00 [facility] Branch buPROPion Yes Univers XL 150 mg 8-26 ity of 24 hr 00:00: [place] tablet 00 [facility] Branch buPROPion Yes Univers XL 150 mg 8-26 ity of 24 hr 00:00: [place] tablet 00 [facility] Branch buPROPion Yes Univers XL 150 mg 8-26 ity of 24 hr 00:00: [place] tablet [facility] Branch buPROPion Yes Univers XL 150 mg 8-26 ity of 24 hr 00:00: [place] tablet 00 [facility] Branch buPROPion Yes Univers XL 150 mg 8-26 ity of 24 hr 00:00: [place] tablet 00 [facility] Branch buPROPion Yes Univers XL 150 mg 8-26 ity of 24 hr 00:00: [place] tablet 00 [facility] Branch buPROPion Yes Univers XL 150 mg 8-26 ity of 24 hr 00:00: [place] tablet 00 [facility] Branch buPROPion Yes Univers XL 150 mg 8-26 ity of 24 hr 00:00: [place] tablet 00 [facility] Branch furosemide 0 2022- No 20mg QD Take [address] [facility] (LASIX) 20 8- 08- tablet (20 Carol kes - MG tablet [...] 24 times Center daily. gabapentin Yes 300mg [id number] Take [address] (NEURONTIN) 8-22 [id number] mg by L ukes - 300 MG [...] Medical tablet 24 times Center daily. metoprolol 2021-0 Yes 25mg QD Take [address] succinate 8-22 by mouth [facility] - (TOPROL-XL) 12:43: nightly. Me dical 25 MG 24 hr 24 Center tablet HYDROcodone Yes 1{tbl} Take [address] -acetaminop 8-22 tablet by Brain escobar (NORCO 12:43: mouth 3 Medi jennifer 7.5-325) [...] 12:43: nightly. Medi jennifer 24 Center topiramate 0 Yes 200mg Q.5D Take 200 CH I [...] 12:43: daily. Medi jennifer 24 Center fluticasone 0 Yes QD Inhale [address] -umeclidin- 8-22 Inhalation Carol kes - vilanter 12:43: by mouth Medic al (Trelegy 24 via Center Ellipta) inhaler 100-62.5-25 daily . mcg DsDv clopidogreL 2020- No 75mg QD Take [address] (PLAVIX) 75 8-22 08-22 by mouth Brain es - mg tablet 10:48: 00:00 daily. Medic al 43 :00 Center ELIQUIS 5 Yes 5mg Take 5 mg Uni vers mg tablet 8-22 by mouth 2 ity of 00:00: (two) [place] 00 times Medical daily. Branch benzonatate Yes TAKE 1 Univ ers 100 mg 8-22 CAPSULE ity of capsule 00:00: (100 MG [place] 00 TOTAL) BY Medical MOUTH 3 Branch (THREE) TIMES DAILY NEEDED FOR COUGH FOR UP TO 7 DAYS. ELIQUIS 5 Yes 5mg Take 5 mg Uni vers mg tablet 8-22 by mouth 2 ity of 00:00: (two) [place] 00 times Medical daily. Branch benzonatate Yes TAKE 1 Univ ers 100 mg 8-22 CAPSULE ity of capsule 00:00: (100 MG [place] 00 TOTAL) BY Medical MOUTH 3 Branch (THREE) TIMES DAILY NEEDED FOR COUGH FOR UP TO 7 DAYS. ELIQUIS 5 Yes 5mg Take 5 mg Uni vers mg tablet 8-22 by mouth 2 ity of 00:00: (two) [place] 00 times Medical daily. Branch benzonatate Yes TAKE 1 Univ ers 100 mg 8-22 CAPSULE ity of capsule 00:00: (100 MG [place] 00 TOTAL) BY Medical MOUTH 3 Branch (THREE) TIMES DAILY NEEDED FOR COUGH FOR UP TO 7 DAYS. ELIQUIS 5 Yes 5mg Take 5 mg Uni vers mg tablet 8-22 by mouth 2 ity of 00:00: (two) [place] 00 times Medical daily. Branch benzonatate Yes TAKE 1 Univ ers 100 mg 8-22 CAPSULE ity of capsule 00:00: (100 MG [place] 00 TOTAL) BY Medical MOUTH 3 Branch (THREE) TIMES DAILY NEEDED FOR COUGH FOR UP TO 7 DAYS. ELIQUIS 5 0 Yes 5mg Take 5 mg Uni vers mg tablet 8-22 by mouth 2 ity of 00:00: (two) [place] 00 times Medical daily. Branch benzonatate Yes TAKE 1 Univ ers 100 mg 8-22 CAPSULE ity of capsule 00:00: (100 MG [place] 00 TOTAL) BY Medical MOUTH 3 Branch (THREE) TIMES DAILY NEEDED FOR COUGH FOR UP TO 7 DAYS. ELIQUIS 5 0 Yes 5mg Take 5 mg Uni vers mg tablet 8-22 by mouth 2 ity of 00:00: (two) [place] 00 times Medical daily. Branch benzonatate Yes TAKE 1 Univ ers 100 mg 8-22 CAPSULE ity of capsule 00:00: (100 MG [place] 00 TOTAL) BY Medical MOUTH 3 Branch (THREE) TIMES DAILY NEEDED FOR COUGH FOR UP TO 7 DAYS. ELIQUIS 5 0 Yes 5mg Take 5 mg Uni vers mg tablet 8-22 by mouth 2 ity of 00:00: (two) [place] 00 times Medical daily. Branch benzonatate Yes TAKE 1 Univ ers 100 mg 8-22 CAPSULE ity of capsule 00:00: (100 MG [place] 00 TOTAL) BY Medical MOUTH 3 Branch (THREE) TIMES DAILY NEEDED FOR COUGH FOR UP TO 7 DAYS. ELIQUIS 5 Yes 5mg Take 5 mg Uni vers mg tablet 8-22 by mouth 2 ity of 00:00: (two) [place] 00 times Medical daily. Branch benzonatate Yes TAKE 1 Univ ers 100 mg 8-22 CAPSULE ity of capsule 00:00: (100 MG [place] 00 TOTAL) BY Medical MOUTH 3 Branch (THREE) TIMES DAILY NEEDED FOR COUGH FOR UP TO 7 DAYS. ELIQUIS 5 Yes 5mg Take 5 mg Uni vers mg tablet 8-22 by mouth 2 ity of 00:00: (two) [place] 00 times Medical daily. Branch benzonatate Yes TAKE 1 Univ ers 100 mg 8-22 CAPSULE ity of capsule 00:00: (100 MG [place] 00 TOTAL) BY Medical MOUTH 3 Branch (THREE) TIMES DAILY NEEDED FOR COUGH FOR UP TO 7 DAYS. apixaban 2021- No 5mg Q.5D Take [address] [facility] (ELIQUIS) 5 12-09 tablet (5 [facility] kes - mg Tab 00:00: 23:59 mg total) Medic al tablet 00 :00 by mouth 2 Center (two) times daily. cyanocobala 2021- No 1000ug QD Take [address] min, 12-09 tablet [facility] - vitamin 00:00: 23:59 (1,000 mcg Med ical B-12, 1000 00 :00 total) by Cent er MCG tablet mouth daily. flecainide 2021- No 50mg Take [address] [facility] (TAMBOCOR) 12-09 tablet (50 Carol kes - 50 MG 00:00: 23:59 mg total) Medica l tablet 00 :00 by mouth Center every 12 (twelve) hours. benzonatate 2020- No 100mg Take [address] (TESSALON) 12-09 capsule [facility] - 100 MG 00:00: 23:59 (100 mg Medical capsule 00 :00 total) by Center mouth 3 (three) times daily as needed for Cough for up to 7 days. ALPRAZolam Yes Univers 0.25 mg 8-02 ity of tablet 00:00: [facility] ALPRAZolam Yes Univers 0.25 mg 8-02 ity of tablet 00:00: [place] [facility] ALPRAZolam Yes Univers 0.25 mg 8-02 ity of tablet 00:00: [facility] ALPRAZolam Yes Univers 0.25 mg 8-02 ity of tablet 00:00: [place] [facility] ALPRAZolam Yes Univers 0.25 mg 8-02 ity of tablet 00:00: [facility] ALPRAZolam Yes Univers 0.25 mg 8-02 ity of tablet 00:00: [place] [facility] ALPRAZolam Yes Univers 0.25 mg 8-02 ity of tablet 00:00: [place] [facility] ALPRAZolam Yes Univers 0.25 mg 8-02 ity of tablet 00:00: [place] [facility] ALPRAZolam Yes Univers 0.25 mg 8-02 ity of tablet 00:00: [facility] calcium 2015-04 Yes 2{tbl} Take 2 Univer s carb and 2-28 tablets by ity o f citrate-vit 11:30: mouth [place] D3 04 daily. Medical (CITRACAL + Branch D SLOW RELEASE) 600 mg calcium- 500 unit TbSR DULoxetine 2015-04 Yes 60mg Take 60 mg U nivers (CYMBALTA) 2-28 by mouth ity o f 60 mg 11:30: daily. [place] capsule 04 Medical Branch indapamide 2015-04 Yes 2.5mg Take 2.5 [facility] (LOZOL) 2.5 2-28 mg by ity of mg tablet 11:30: mouth [place] 04 daily. Medical Branch Vit C-Vit 2015-04 Yes 1{capsu Take 1 Uni vers E-Lutein-Mi 2-28 le} capsule by it y of n-OM-3 11:30: mouth [place] (OCUVITE) 04 daily. Medical 150-30-5-15 Branch 0 mg-unit-mg- mg Cap multivitami 2015-04 Yes 1{tbl} Take 1 [facility] n 2-28 tablet by ity of (ONE-A-DAY 11:30: mouth [place] ESSENTIAL) 04 daily. Medical tablet Branch FERROUS 2015-04 Yes 1{tbl} Take 1 Univer s FUMARATE/ 2-28 tablet by ity of T BCOMP,C 11:30: mouth [place] (SUPER B 04 daily. Medical COMPLEX Branch ORAL) ascorbic 2015-04 Yes 500mg Take 500 Univ ers acid, 2-28 mg by ity of vitamin C, 11:30: mouth [place] (VITAMIN C) 04 daily. Medica l 500 mg Branch tablet Cholecalcif 2015-04 Yes 1{tbl} Take 1 [facility] ronald, 2-28 tablet by ity of Vitamin D3, 11:30: mouth [place] (VITAMIN 04 daily. Medical D3) 5,000 Branch unit tablet QUEtiapine 2015-04 Yes 50mg Take 50 mg U nivers (SEROQUEL) 2-28 by mouth ity o f 50 mg 11:30: daily. [place] tablet 04 Medical Branch simvastatin 2015-04 Yes 40mg Take 40 mg Univers (ZOCOR) 40 2-28 by mouth ity o f mg tablet 11:30: at [place] 04 bedtime. Medical Branch topiramate 2015-04 Yes 200mg Take 200 [facility] (TOPAMAX) 2-28 mg by ity of 100 mg 11:30: mouth [place] tablet 04 every Medical evening. Branch KCL 2015-04 Yes 10meq Take 10 Univers (KLOR-CON 2-28 mEq by ity of M10) 10 mEq 11:30: mouth 2 [place] as tablet 04 (two) Medical times Branch daily. pregabalin 2015-04 Yes 225mg Take 225 [facility] (LYRICA) 2-28 mg by ity of 225 mg 11:30: mouth 2 [place] capsule 04 (two) Medical times Branch daily. memantine 2015-04 Yes 5mg Take 5 mg Uni vers (NAMENDA) 5 2-28 by mouth 2 it y of mg tablet 11:30: (two) [place] 04 times Medical daily. Branch metoprolol 2015-04 Yes 50mg Take 50 mg U nivers tartrate 2-28 by mouth 2 ity o f (LOPRESSOR) 11:30: (two) [place] 50 mg 04 times Medical tablet daily. Branch esomeprazol 2015-04 Yes 20mg Take 20 mg Univers e (NEXIUM) 2-28 by mouth 2 ity of 20 mg 11:30: (two) [place] capsule 04 times Medical daily. Branch LACTOBAC/BI 2015-04 Yes 1{tbl} Take 1 [facility] FIDOBAC/ZAHIRA 2-28 tablet by ity of B LA CON 11:30: mouth 2 [place] (ULTRA 04 (two) Medical RODOLFO PLUS times Branch ORAL) daily. Indication s: Ultimate Rodolfo calcium 2015-04 Yes 2{tbl} Take 2 Univer s carb and 2-28 tablets by ity o f citrate-vit 11:30: mouth [place] D3 04 daily. Medical (CITRACAL + Branch D SLOW RELEASE) 600 mg calcium- 500 unit TbSR DULoxetine 2015-04 Yes 60mg Take 60 mg U nivers (CYMBALTA) 2-28 by mouth ity o f 60 mg 11:30: daily. [place] capsule 04 Medical Branch indapamide 2015-04 Yes 2.5mg Take 2.5 [facility] (LOZOL) 2.5 2-28 mg by ity of mg tablet 11:30: mouth [place] 04 daily. Medical Branch Vit C-Vit 2015-04 Yes 1{capsu Take 1 Uni vers E-Lutein-Mi 2-28 le} capsule by it y of n-OM-3 11:30: mouth [place] (OCUVITE) 04 daily. Medical 150-30-5-15 Branch 0 mg-unit-mg- mg Cap multivitami 2015-04 Yes 1{tbl} Take 1 [facility] n 2-28 tablet by ity of (ONE-A-DAY 11:30: mouth [place] ESSENTIAL) 04 daily. Medical tablet Branch FERROUS 2015-04 Yes 1{tbl} Take 1 Univer s FUMARATE/ 2-28 tablet by ity of T BCOMP,C 11:30: mouth [place] (SUPER B 04 daily. Medical COMPLEX Branch ORAL) ascorbic 2015-04 Yes 500mg Take 500 Univ ers acid, 2-28 mg by ity of vitamin C, 11:30: mouth [place] (VITAMIN C) 04 daily. Medica l 500 mg Branch tablet Cholecalcif 2015-04 Yes 1{tbl} Take 1 [facility] ronald, 2-28 tablet by ity of Vitamin D3, 11:30: mouth [place] (VITAMIN 04 daily. Medical D3) 5,000 Branch unit tablet QUEtiapine 2015-04 Yes 50mg Take 50 mg U nivers (SEROQUEL) 2-28 by mouth ity o f 50 mg 11:30: daily. [place] tablet 04 Medical Branch simvastatin 2015-04 Yes 40mg Take 40 mg Univers (ZOCOR) 40 2-28 by mouth ity o f mg tablet 11:30: at [place] 04 bedtime. Medical Branch topiramate 2015-04 Yes 200mg Take 200 [facility] (TOPAMAX) 2-28 mg by ity of 100 mg 11:30: mouth [place] tablet 04 every Medical evening. Branch KCL 2015-04 Yes 10meq Take 10 Univers (KLOR-CON 2-28 mEq by ity of M10) 10 mEq 11:30: mouth 2 [place] as tablet 04 (two) Medical times [place] daily. pregabalin 2015-04 Yes 225mg Take 225 [facility] (LYRICA) 2-28 mg by ity of 225 mg 11:30: mouth 2 [place] capsule 04 (two) Medical times Branch daily. memantine 2015-04 Yes 5mg Take 5 mg Uni vers (NAMENDA) 5 2-28 by mouth 2 it y of mg tablet 11:30: (two) [place] 04 times Medical daily. Branch metoprolol 2015-04 Yes 50mg Take 50 mg U nivers tartrate 2-28 by mouth 2 ity o f (LOPRESSOR) 11:30: (two) [place] 50 mg 04 times Medical tablet daily. Branch esomeprazol 2015-04 Yes 20mg Take 20 mg Univers e (NEXIUM) 2-28 by mouth 2 ity of 20 mg 11:30: (two) [place] capsule 04 times Medical daily. Branch LACTOBAC/BI 2015-04 Yes 1{tbl} Take 1 [facility] FIDOBAC/ZAHIRA 2-28 tablet by ity of B LA CON 11:30: mouth 2 [place] (ULTRA 04 (two) Medical RODOLFO PLUS times Branch ORAL) daily. Indication s: Ultimate [place]olfo calcium 2015-04 Yes 2{tbl} Take 2 Univer s carb and 2-28 tablets by ity o f citrate-vit 11:30: mouth [place] D3 04 daily. Medical (CITRACAL + Branch D SLOW RELEASE) 600 mg calcium- 500 unit TbSR DULoxetine 2015-04 Yes 60mg Take 60 mg U nivers (CYMBALTA) 2-28 by mouth ity o f 60 mg 11:30: daily. [place] capsule 04 Medical Branch indapamide 2015-04 Yes 2.5mg Take 2.5 [facility] (LOZOL) 2.5 2-28 mg by ity of mg tablet 11:30: mouth [place] 04 daily. Medical Branch Vit C-Vit 2015-04 Yes 1{capsu Take 1 Uni vers E-Lutein-Mi 2-28 le} capsule by it y of n-OM-3 11:30: mouth [place] (OCUVITE) 04 daily. Medical 150-30-5-15 Branch 0 mg-unit-mg- mg Cap multivitami 2015-04 Yes 1{tbl} Take 1 [facility] n 2-28 tablet by ity of (ONE-A-DAY 11:30: mouth [place] ESSENTIAL) 04 daily. Medical tablet Branch FERROUS 2015-04 Yes 1{tbl} Take 1 Univer s FUMARATE/ 2-28 tablet by ity of T BCOMP,C 11:30: mouth [place] (SUPER B 04 daily. Medical COMPLEX Branch ORAL) ascorbic 2015-04 Yes 500mg Take 500 Univ ers acid, 2-28 mg by ity of vitamin C, 11:30: mouth [place] (VITAMIN C) 04 daily. Medica l 500 mg Branch tablet Cholecalcif 2015-04 Yes 1{tbl} Take 1 [facility] ronald, 2-28 tablet by ity of Vitamin D3, 11:30: mouth [place] (VITAMIN 04 daily. Medical D3) 5,000 Branch unit tablet QUEtiapine 2015-04 Yes 50mg Take 50 mg U nivers (SEROQUEL) 2-28 by mouth ity o f 50 mg 11:30: daily. [place] tablet 04 Medical Branch simvastatin 2015-04 Yes 40mg Take 40 mg Univers (ZOCOR) 40 2-28 by mouth ity o f mg tablet 11:30: at [place] 04 bedtime. Medical Branch topiramate 2015-04 Yes 200mg Take 200 [facility] (TOPAMAX) 2-28 mg by ity of 100 mg 11:30: mouth [place] tablet 04 every Medical evening. Branch KCL 2015-04 Yes 10meq Take 10 Univers (KLOR-CON 2-28 mEq by ity of M10) 10 mEq 11:30: mouth 2 [place] as tablet 04 (two) Medical times Branch daily. pregabalin 2015-04 Yes 225mg Take 225 [facility] (LYRICA) 2-28 mg by ity of 225 mg 11:30: mouth 2 [place] capsule 04 (two) Medical times Branch daily. memantine 2015-04 Yes 5mg Take 5 mg Uni vers (NAMENDA) 5 2-28 by mouth 2 it y of mg tablet 11:30: (two) [place] 04 times Medical daily. Branch metoprolol 2015-04 Yes 50mg Take 50 mg U nivers tartrate 2-28 by mouth 2 ity o f (LOPRESSOR) 11:30: (two) [place] 50 mg 04 times Medical tablet daily. Branch esomeprazol 2015-04 Yes 20mg Take 20 mg Univers e (NEXIUM) 2-28 by mouth 2 ity of 20 mg 11:30: (two) [place] capsule 04 times Medical daily. Branch LACTOBAC/BI 2015-04 Yes 1{tbl} Take 1 [facility] FIDOBAC/ZAHIRA 2-28 tablet by ity of B LA CON 11:30: mouth 2 [place] (ULTRA 04 (two) Medical RODOLFO PLUS times Branch ORAL) daily. Indication s: Ultimate Rodolfo calcium 2015-04 Yes 2{tbl} Take 2 Univer s carb and 2-28 tablets by ity o f citrate-vit 11:30: mouth [place] D3 04 daily. Medical (CITRACAL + Branch D SLOW RELEASE) 600 mg calcium- 500 unit TbSR DULoxetine 2015-04 Yes 60mg Take 60 mg U nivers (CYMBALTA) 2-28 by mouth ity o f 60 mg 11:30: daily. [place] capsule 04 Medical Branch indapamide 2015-04 Yes 2.5mg Take 2.5 [facility] (LOZOL) 2.5 2-28 mg by ity of mg tablet 11:30: mouth [place] 04 daily. Medical Branch Vit C-Vit 2015-04 Yes 1{capsu Take 1 Uni vers E-Lutein-Mi 2-28 le} capsule by it y of n-OM-3 11:30: mouth [place] (OCUVITE) 04 daily. Medical 150-30-5-15 Branch 0 mg-unit-mg- mg Cap multivitami 2015-04 Yes 1{tbl} Take 1 [facility] n 2-28 tablet by ity of (ONE-A-DAY 11:30: mouth [place] ESSENTIAL) 04 daily. Medical tablet Branch FERROUS 2015-04 Yes 1{tbl} Take 1 Univer s FUMARATE/ 2-28 tablet by ity of T BCOMP,C 11:30: mouth [place] (SUPER B 04 daily. Medical COMPLEX Branch ORAL) ascorbic 2015-04 Yes 500mg Take 500 Univ ers acid, 2-28 mg by ity of vitamin C, 11:30: mouth [place] (VITAMIN C) 04 daily. Medica l 500 mg Branch tablet Cholecalcif 2015-04 Yes 1{tbl} Take 1 [facility] ronald, 2-28 tablet by ity of Vitamin D3, 11:30: mouth [place] (VITAMIN 04 daily. Medical D3) 5,000 Branch unit tablet QUEtiapine 2015-04 Yes 50mg Take 50 mg U nivers (SEROQUEL) 2-28 by mouth ity o f 50 mg 11:30: daily. [place] tablet 04 Medical Branch simvastatin 2015-04 Yes 40mg Take 40 mg Univers (ZOCOR) 40 2-28 by mouth ity o f mg tablet 11:30: at [place] 04 bedtime. Medical Branch topiramate 2015-04 Yes 200mg Take 200 [facility] (TOPAMAX) 2-28 mg by ity of 100 mg 11:30: mouth [place] tablet 04 every Medical evening. Branch KCL 2015-04 Yes 10meq Take 10 Univers (KLOR-CON 2-28 mEq by ity of M10) 10 mEq 11:30: mouth 2 [place] as tablet 04 (two) Medical times Branch daily. pregabalin 2015-04 Yes 225mg Take 225 [facility] (LYRICA) 2-28 mg by ity of 225 mg 11:30: mouth 2 [place] capsule 04 (two) Medical times Branch daily. memantine 2015-04 Yes 5mg Take 5 mg Uni vers (NAMENDA) 5 2-28 by mouth 2 it y of mg tablet 11:30: (two) [place] 04 times Medical daily. Branch metoprolol 2015-04 Yes 50mg Take 50 mg U nivers tartrate 2-28 by mouth 2 ity o f (LOPRESSOR) 11:30: (two) [place] 50 mg 04 times Medical tablet daily. Branch esomeprazol 2015-04 Yes 20mg Take 20 mg Univers e (NEXIUM) 2-28 by mouth 2 ity of 20 mg 11:30: (two) [place] capsule 04 times Medical daily. Branch LACTOBAC/BI 2015-04 Yes 1{tbl} Take 1 [facility] FIDOBAC/ZAHIRA 2-28 tablet by ity of B LA CON 11:30: mouth 2 [place] (ULTRA 04 (two) Medical RODOLFO PLUS times Branch ORAL) daily. Indication s: Ultimate Rodolfo calcium 2015-04 Yes 2{tbl} Take 2 Univer s carb and 2-28 tablets by ity o f citrate-vit 11:30: mouth [place] D3 04 daily. Medical (CITRACAL + Branch D SLOW RELEASE) 600 mg calcium- 500 unit TbSR DULoxetine 2015-04 Yes 60mg Take 60 mg U nivers (CYMBALTA) 2-28 by mouth ity o f 60 mg 11:30: daily. [place] capsule 04 Medical Branch indapamide 2015-04 Yes 2.5mg Take 2.5 [facility] (LOZOL) 2.5 2-28 mg by ity of mg tablet 11:30: mouth [place] 04 daily. Medical Branch Vit C-Vit 2015-04 Yes 1{capsu Take 1 Uni vers E-Lutein-Mi 2-28 le} capsule by it y of n-OM-3 11:30: mouth [place] (OCUVITE) 04 daily. Medical 150-30-5-15 Branch 0 mg-unit-mg- mg Cap multivitami 2015-04 Yes 1{tbl} Take 1 [facility] n 2-28 tablet by ity of (ONE-A-DAY 11:30: mouth [place] ESSENTIAL) 04 daily. Medical tablet Branch FERROUS 2015-04 Yes 1{tbl} Take 1 Univer s FUMARATE/ 2-28 tablet by ity of T BCOMP,C 11:30: mouth [place] (SUPER B 04 daily. Medical COMPLEX Branch ORAL) ascorbic 2015-04 Yes 500mg Take 500 Univ ers acid, 2-28 mg by ity of vitamin C, 11:30: mouth [place] (VITAMIN C) 04 daily. Medica l 500 mg Branch tablet Cholecalcif 2015-04 Yes 1{tbl} Take 1 Un dhara ronald, 2-28 tablet by ity of Vitamin D3, 11:30: mouth [place] (VITAMIN 04 daily. Medical D3) 5,000 Branch unit tablet QUEtiapine 2015-04 Yes 50mg Take 50 mg U nivers (SEROQUEL) 2-28 by mouth ity o f 50 mg 11:30: daily. [place] tablet 04 Medical Branch simvastatin 2015-04 Yes 40mg Take 40 mg Univers (ZOCOR) 40 2-28 by mouth ity o f mg tablet 11:30: at [place] 04 bedtime. Medical Branch topiramate 2015-04 Yes 200mg Take 200 Un dhara (TOPAMAX) 2-28 mg by ity of 100 mg 11:30: mouth [place] tablet 04 every Medical evening. Branch KCL 2015-04 Yes 10meq Take 10 Univers (KLOR-CON 2-28 mEq by ity of M10) 10 mEq 11:30: mouth 2 [place] as tablet 04 (two) Medical times Branch daily. pregabalin 2015-04 Yes 225mg Take 225 Un dhara (LYRICA) 2-28 mg by ity of 225 mg 11:30: mouth 2 [place] capsule 04 (two) Medical times Branch daily. memantine 2015-04 Yes 5mg Take 5 mg Uni vers (NAMENDA) 5 2-28 by mouth 2 it y of mg tablet 11:30: (two) [place] 04 times Medical daily. Branch metoprolol 2015-04 Yes 50mg Take 50 mg U nivers tartrate 2-28 by mouth 2 ity o f (LOPRESSOR) 11:30: (two) [place] 50 mg 04 times Medical tablet daily. Branch esomeprazol 2015-04 Yes 20mg Take 20 mg Univers e (NEXIUM) 2-28 by mouth 2 ity of 20 mg 11:30: (two) [place] capsule 04 times Medical daily. Branch LACTOBAC/BI 2015-04 Yes 1{tbl} Take 1 Un dhara FIDOBAC/ZAHIRA 2-28 tablet by ity of B LA CON 11:30: mouth 2 [place] (ULTRA 04 (two) Medical RODOLFO PLUS times Branch ORAL) daily. Indication s: Ultimate Rodolfo calcium 2015-04 Yes 2{tbl} Take 2 Univer s carb and 2-28 tablets by ity o f citrate-vit 11:30: mouth [place] D3 04 daily. Medical (CITRACAL + Branch D SLOW RELEASE) 600 mg calcium- 500 unit TbSR DULoxetine 2015-04 Yes 60mg Take 60 mg U nivers (CYMBALTA) 2-28 by mouth ity o f 60 mg 11:30: daily. [place] capsule 04 Medical Branch indapamide 2015-04 Yes 2.5mg Take 2.5 Un dhara (LOZOL) 2.5 2-28 mg by ity of mg tablet 11:30: mouth [place] 04 daily. Medical Branch Vit C-Vit 2015-04 Yes 1{capsu Take 1 Uni vers E-Lutein-Mi 2-28 le} capsule by it y of n-OM-3 11:30: mouth [place] (OCUVITE) 04 daily. Medical 150-30-5-15 Branch 0 mg-unit-mg- mg Cap multivitami 2015-04 Yes 1{tbl} Take 1 Un dhara n 2-28 tablet by ity of (ONE-A-DAY 11:30: mouth [place] ESSENTIAL) 04 daily. Medical tablet Branch FERROUS 2015-04 Yes 1{tbl} Take 1 Univer s FUMARATE/ 2-28 tablet by ity of T BCOMP,C 11:30: mouth [place] (SUPER B 04 daily. Medical COMPLEX Branch ORAL) ascorbic 2015-04 Yes 500mg Take 500 Univ ers acid, 2-28 mg by ity of vitamin C, 11:30: mouth [place] (VITAMIN C) 04 daily. Medica l 500 mg Branch tablet Cholecalcif 2015-04 Yes 1{tbl} Take 1 Un dhara ronald, 2-28 tablet by ity of Vitamin D3, 11:30: mouth [place] (VITAMIN 04 daily. Medical D3) 5,000 Branch unit tablet QUEtiapine 2015-04 Yes 50mg Take 50 mg U nivers (SEROQUEL) 2-28 by mouth ity o f 50 mg 11:30: daily. [place] tablet 04 Medical Branch simvastatin 2015-04 Yes 40mg Take 40 mg Univers (ZOCOR) 40 2-28 by mouth ity o f mg tablet 11:30: at [place] 04 bedtime. Medical Branch topiramate 2015-04 Yes 200mg Take 200 Un dhara (TOPAMAX) 2-28 mg by ity of 100 mg 11:30: mouth [place] tablet 04 every Medical evening. Branch KCL 2015-04 Yes 10meq Take 10 Univers (KLOR-CON 2-28 mEq by ity of M10) 10 mEq 11:30: mouth 2 [place] as tablet 04 (two) Medical times Branch daily. pregabalin 2015-04 Yes 225mg Take 225 Un dhara (LYRICA) 2-28 mg by ity of 225 mg 11:30: mouth 2 [place] capsule 04 (two) Medical times Branch daily. memantine 2015-04 Yes 5mg Take 5 mg Uni vers (NAMENDA) 5 2-28 by mouth 2 it y of mg tablet 11:30: (two) [place] 04 times Medical daily. Branch metoprolol 2015-04 Yes 50mg Take 50 mg U nivers tartrate 2-28 by mouth 2 ity o f (LOPRESSOR) 11:30: (two) [place] 50 mg 04 times Medical tablet daily. Branch esomeprazol 2015-04 Yes 20mg Take 20 mg Univers e (NEXIUM) 2-28 by mouth 2 ity of 20 mg 11:30: (two) [place] capsule 04 times Medical daily. Branch LACTOBAC/BI 2015-04 Yes 1{tbl} Take 1 Un dhara FIDOBAC/ZAHIRA 2-28 tablet by ity of B LA CON 11:30: mouth 2 [place] (ULTRA 04 (two) Medical RODOLFO PLUS times Branch ORAL) daily. Indication s: Ultimate Rodolfo calcium 2015-04 Yes 2{tbl} Take 2 Univer s carb and 2-28 tablets by ity o f citrate-vit 11:30: mouth [place] D3 04 daily. Medical (CITRACAL + Branch D SLOW RELEASE) 600 mg calcium- 500 unit TbSR DULoxetine 2015-04 Yes 60mg Take 60 mg U nivers (CYMBALTA) 2-28 by mouth ity o f 60 mg 11:30: daily. [place] capsule 04 Medical Branch indapamide 2015-04 Yes 2.5mg Take 2.5 Un dhara (LOZOL) 2.5 2-28 mg by ity of mg tablet 11:30: mouth [place] 04 daily. Medical Branch Vit C-Vit 2015-04 Yes 1{capsu Take 1 Uni vers E-Lutein-Mi 2-28 le} capsule by it y of n-OM-3 11:30: mouth [place] (OCUVITE) 04 daily. Medical 150-30-5-15 Branch 0 mg-unit-mg- mg Cap multivitami 2015-04 Yes 1{tbl} Take 1 Un dhara n 2-28 tablet by ity of (ONE-A-DAY 11:30: mouth [place] ESSENTIAL) 04 daily. Medical tablet Branch FERROUS 2015-04 Yes 1{tbl} Take 1 Univer s FUMARATE/ 2-28 tablet by ity of T BCOMP,C 11:30: mouth [place] (SUPER B 04 daily. Medical COMPLEX Branch ORAL) ascorbic 2015-04 Yes 500mg Take 500 Univ ers acid, 2-28 mg by ity of vitamin C, 11:30: mouth [place] (VITAMIN C) 04 daily. Medica l 500 mg Branch tablet Cholecalcif 2015-04 Yes 1{tbl} Take 1 Un dhara ronald, 2-28 tablet by ity of Vitamin D3, 11:30: mouth [place] (VITAMIN 04 daily. Medical D3) 5,000 Branch unit tablet QUEtiapine 2015-04 Yes 50mg Take 50 mg U nivers (SEROQUEL) 2-28 by mouth ity o f 50 mg 11:30: daily. [place] tablet 04 Medical Branch simvastatin 2015-04 Yes 40mg Take 40 mg Univers (ZOCOR) 40 2-28 by mouth ity o f mg tablet 11:30: at [place] 04 bedtime. Medical Branch topiramate 2015-04 Yes 200mg Take 200 Un dh[facility] (TOPAMAX) 2-28 mg by ity of 100 mg 11:30: mouth [place] tablet 04 every Medical evening. Branch KCL 2015-04 Yes 10meq Take 10 Univers (KLOR-CON 2-28 mEq by ity of M10) 10 mEq 11:30: mouth 2 [place] tablet 04 (two) Medical times Branch daily. pregabalin 2015-04 Yes 225mg Take 225 Un dh[facility] (LYRICA) 2-28 mg by ity of 225 mg 11:30: mouth 2 [place] capsule 04 (two) Medical times Branch daily. memantine 2015-04 Yes 5mg Take 5 mg Uni vers (NAMENDA) 5 2-28 by mouth 2 it y of mg tablet 11:30: (two) [place] 04 times Medical daily. Branch metoprolol 2015-04 Yes 50mg Take 50 mg U nivers tartrate 2-28 by mouth 2 ity o f (LOPRESSOR) 11:30: (two) [place] 50 mg 04 times Medical tablet daily. Branch esomeprazol 2015-04 Yes 20mg Take 20 mg Univers e (NEXIUM) 2-28 by mouth 2 ity of 20 mg 11:30: (two) [place] capsule 04 times Medical daily. Branch LACTOBAC/BI 2015-04 Yes 1{tbl} Take 1 Un dh[facility] FIDOBAC/ZAHIRA 2-28 tablet by ity of B LA CON 11:30: mouth 2 [place] (ULTRA 04 (two) Medical RODOLFO PLUS times Branch ORAL) daily. Indication s: Ultimate Rodolfo calcium 2015-04 Yes 2{tbl} Take 2 Univer s carb and 2-28 tablets by ity o f citrate-vit 11:30: mouth [place] D3 04 daily. Medical (CITRACAL + Branch D SLOW RELEASE) 600 mg calcium- 500 unit TbSR DULoxetine 2015-04 Yes 60mg Take 60 mg U nivers (CYMBALTA) 2-28 by mouth ity o f 60 mg 11:30: daily. [place] capsule 04 Medical Branch indapamide 2015-04 Yes 2.5mg Take 2.5 Un dh[facility] (LOZOL) 2.5 2-28 mg by ity of mg tablet 11:30: mouth [place] 04 daily. Medical Branch Vit C-Vit 2015-04 Yes 1{capsu Take 1 Uni vers E-Lutein-Mi 2-28 le} capsule by it y of n-OM-3 11:30: mouth [place] (OCUVITE) 04 daily. Medical 150-30-5-15 Branch 0 mg-unit-mg- mg Cap multivitami 2015-04 Yes 1{tbl} Take 1 Un dhara n 2-28 tablet by ity of (ONE-A-DAY 11:30: mouth [place] ESSENTIAL) 04 daily. Medical tablet Branch FERROUS 2015-04 Yes 1{tbl} Take 1 Univer s FUMARATE/ 2-28 tablet by ity of T BCOMP,C 11:30: mouth [place] (SUPER B 04 daily. Medical COMPLEX Branch ORAL) ascorbic 2015-04 Yes 500mg Take 500 Univ ers acid, 2-28 mg by ity of vitamin C, 11:30: mouth [place] (VITAMIN C) 04 daily. Medica l 500 mg Branch tablet Cholecalcif 2015-04 Yes 1{tbl} Take 1 Un dhara ronald, 2-28 tablet by ity of Vitamin D3, 11:30: mouth [place] (VITAMIN 04 daily. Medical D3) 5,000 Branch unit tablet QUEtiapine 2015-04 Yes 50mg Take 50 mg U nivers (SEROQUEL) 2-28 by mouth ity o f 50 mg 11:30: daily. [place] tablet 04 Medical Branch simvastatin 2015-04 Yes 40mg Take 40 mg Univers (ZOCOR) 40 2-28 by mouth ity o f mg tablet 11:30: at [place] 04 bedtime. Medical Branch topiramate 2015-04 Yes 200mg Take 200 Un [facility] (TOPAMAX) 2-28 mg by ity of 100 mg 11:30: mouth [place] tablet 04 every Medical evening. Branch KCL 2015-04 Yes 10meq Take 10 Univers (KLOR-CON 2-28 mEq by ity of M10) 10 mEq 11:30: mouth 2 [place] as tablet 04 (two) Medical times Branch daily. pregabalin 2015-04 Yes 225mg Take 225 Un dh[facility] (LYRICA) 2-28 mg by ity of 225 mg 11:30: mouth 2 [place] capsule 04 (two) Medical times Branch daily. memantine 2015-04 Yes 5mg Take 5 mg Uni vers (NAMENDA) 5 2-28 by mouth 2 it y of mg tablet 11:30: (two) [place] 04 times Medical daily. Branch metoprolol 2015-04 Yes 50mg Take 50 mg U nivers tartrate 2-28 by mouth 2 ity o f (LOPRESSOR) 11:30: (two) [place] 50 mg 04 times Medical tablet daily. Branch esomeprazol 2015-04 Yes 20mg Take 20 mg Univers e (NEXIUM) 2-28 by mouth 2 ity of 20 mg 11:30: (two) [place] capsule 04 times Medical daily. Branch LACTOBAC/BI 2015-04 Yes 1{tbl} Take 1 Un [facility] FIDOBAC/ZAHIRA 2-28 tablet by ity of B LA CON 11:30: mouth 2 [place] (ULTRA 04 (two) Medical RODOLFO PLUS times Branch ORAL) daily. Indication s: Ultimate Rodolfo calcium 2015-04 Yes 2{tbl} Take 2 Univer s carb and 2-28 tablets by ity o f citrate-vit 11:30: mouth [place] D3 04 daily. Medical (CITRACAL + Branch D SLOW RELEASE) 600 mg calcium- 500 unit TbSR DULoxetine 2015-04 Yes 60mg Take 60 mg U nivers (CYMBALTA) 2-28 by mouth ity o f 60 mg 11:30: daily. [place] capsule 04 Medical Branch indapamide 2015-04 Yes 2.5mg Take 2.5 Un [facility] (LOZOL) 2.5 2-28 mg by ity of mg tablet 11:30: mouth [place] 04 daily. Medical Branch Vit C-Vit 2015-04 Yes 1{capsu Take 1 Uni vers E-Lutein-Mi 2-28 le} capsule by it y of n-OM-3 11:30: mouth [place] (OCUVITE) 04 daily. Medical 150-30-5-15 Branch 0 mg-unit-mg- mg Cap multivitami 2015-04 Yes 1{tbl} Take 1 Un dhara n 2-28 tablet by ity of (ONE-A-DAY 11:30: mouth [place] ESSENTIAL) 04 daily. Medical tablet Branch FERROUS 2015-04 Yes 1{tbl} Take 1 Univer s FUMARATE/ 2-28 tablet by ity of T BCOMP,C 11:30: mouth [place] (SUPER B 04 daily. Medical COMPLEX Branch ORAL) ascorbic 2015-04 Yes 500mg Take 500 Univ ers acid, 2-28 mg by ity of vitamin C, 11:30: mouth [place] (VITAMIN C) 04 daily. Medica l 500 mg Branch tablet Cholecalcif 2015-04 Yes 1{tbl} Take 1 Un dhara ronald, 2-28 tablet by ity of Vitamin D3, 11:30: mouth [place] (VITAMIN 04 daily. Medical D3) 5,000 Branch unit tablet QUEtiapine 2015-04 Yes 50mg Take 50 mg U nivers (SEROQUEL) 2-28 by mouth ity o f 50 mg 11:30: daily. [place] tablet 04 Medical Branch simvastatin 2015-04 Yes 40mg Take 40 mg Univers (ZOCOR) 40 2-28 by mouth ity o f mg tablet 11:30: at [place] 04 bedtime. Medical Branch topiramate 2015-04 Yes 200mg Take 200 Un [facility] (TOPAMAX) 2-28 mg by ity of 100 mg 11:30: mouth [place] tablet 04 every Medical evening. Branch KCL 2015-04 Yes 10meq Take 10 Univers (KLOR-CON 2-28 mEq by ity of M10) 10 mEq 11:30: mouth 2 [place] as tablet 04 (two) Medical times [place] daily. pregabalin 2015-04 Yes 225mg Take 225 Un dhara (LYRICA) 2-28 mg by ity of 225 mg 11:30: mouth 2 [place] capsule 04 (two) Medical times [place] daily. memantine 2015-04 Yes 5mg Take 5 mg Uni vers (NAMENDA) 5 2-28 by mouth 2 it y of mg tablet 11:30: (two) [place] 04 times Medical daily. Branch metoprolol 2015-04 Yes 50mg Take 50 mg U nivers tartrate 2-28 by mouth 2 ity o f (LOPRESSOR) 11:30: (two) [place] 50 mg 04 times Medical tablet daily. Branch esomeprazol 2015-04 Yes 20mg Take 20 mg Univers e (NEXIUM) 2-28 by mouth 2 ity of 20 mg 11:30: (two) [place] capsule 04 times Medical daily. Branch LACTOBAC/BI 2015-04 Yes 1{tbl} Take 1 Un dh[facility] FIDOBAC/ZAHIRA 2-28 tablet by ity of B LA CON 11:30: mouth 2 [place] (ULTRA 04 (two) Medical RODOLFO PLUS times Branch ORAL) daily. Indication s: Ultimate Rodolfo Immunizations Ordered Filled Immunization Date Status Comments [facility] e Immunization Name Name SARS-COV-2 COVID-19 2020-07-07 Completed Unive rsity of PFIZER VACCINE 00:00:00 [facility] SARS-COV-2 COVID-19 2020-07-07 Completed Unive rsity of PFIZER VACCINE 00:00:00 [facility] SARS-COV-2 COVID-19 2020-07-07 Completed Unive rsity of PFIZER VACCINE 00:00:00 [facility] SARS-COV-2 COVID-19 2020-07-07 Completed Unive rsity of PFIZER VACCINE 00:00:00 [facility] SARS-COV-2 COVID-19 2020-07-07 Completed Unive rsity of PFIZER VACCINE 00:00:00 [facility] SARS-COV-2 COVID-19 2020-07-07 Completed Unive rsity of PFIZER VACCINE 00:00:00 [facility] SARS-COV-2 COVID-19 2020-07-07 Completed Unive rsity of PFIZER VACCINE 00:00:00 [facility] SARS-COV-2 COVID-19 2020-07-07 Completed Unive rsity of PFIZER VACCINE 00:00:00 [facility] SARS-COV-2 COVID-19 2020-07-07 Completed Unive rsity of PFIZER VACCINE 00:00:00 [facility] SARS-COV-2 COVID-19 2020-06-16 Completed Unive rsity of PFIZER VACCINE 00:00:00 [facility] SARS-COV-2 COVID-19 2020-06-16 Completed Unive rsity of PFIZER VACCINE 00:00:00 [facility] SARS-COV-2 COVID-19 2020-06-16 Completed Unive rsity of PFIZER VACCINE 00:00:00 [facility] SARS-COV-2 COVID-19 2020-06-16 Completed Unive rsity of PFIZER VACCINE 00:00:00 [facility] SARS-COV-2 COVID-19 2020-06-16 Completed Unive rsity of PFIZER VACCINE 00:00:00 [facility] SARS-COV-2 COVID-19 2020-06-16 Completed Unive rsity of PFIZER VACCINE 00:00:00 [facility] SARS-COV-2 COVID-19 2020-06-16 Completed Unive rsity of PFIZER VACCINE 00:00:00 [facility] SARS-COV-2 COVID-19 2020-06-16 Completed Unive rsity of PFIZER VACCINE 00:00:00 [facility] SARS-COV-2 COVID-19 2020-06-16 Completed Unive rsity of PFIZER VACCINE 00:00:00 [facility] Vital Signs Vital Name Observation Time Observation Value Comments Source WEIGHT 2020-12-09 06:47:00 97.478 kg WEIGHT 2020-12-03 23:00:00 98.839 kg HEIGHT 2020-12-03 22:25:00 160 cm WEIGHT 2020-12-03 22:25:00 100.562 kg Body height 2021-03-04 19:34:00 160 cm [facility] Body weight 2021-03-04 19:34:00 108.863 kg [facility] BMI 2021-03-04 19:34:00 42.51 kg/m2 [facility] WEIGHT 2020-12-09 06:47:00 97.478 kg WEIGHT 2020-12-03 23:00:00 98.839 kg HEIGHT 2020-12-03 22:25:00 160 cm WEIGHT 2020-12-03 22:25:00 100.562 kg Heart rate 2020-12-09 08:01:00 56 /min [facility] Respiratory rate 2020-12-09 08:01:00 16 /min [facility] Oxygen saturation in 2020-12-09 08:01:00 93 /min [facility] - Arterial blood by Medical Ce nter Pulse oximetry Systolic blood 2020-12-09 07:00:00 126 mm[Hg] [facility] Diastolic blood 2020-12-09 07:00:00 60 mm[Hg] [facility] Body temperature 2020-12-09 07:00:00 36.61 Genia [facility] Body weight 2020-12-09 06:47:00 97.478 kg [facility] BMI 2020-12-09 06:47:00 38.07 kg/m2 [facility] Body height 2020-12-03 22:25:00 160 cm [facility] Procedures Procedure Date / Time Performing Clinician Source Performed XR ANKLE 3+ VW RIGHT 2021-04-17 22:15:00 Laura Mancilla [facility] HOME HEALTH - OTHER 2021-03-26 06:01:00 Doctor LaylassMatt keita [facility] HEALTH - OTHER 2021-03-18 06:01:00 Doctor LaylassMatt keita [facility] HIGH SENSITIVITY TROPONIN 2020-12-08 16:40:00 Perfecto Diaz [facility] I [facility] ECG 12-LEAD 2020-12-08 15:59:02 Unknown, Hl7 Doctor [facility] ECG 12-LEAD 2020-12-08 15:59:02 Unknown, Hl7 Doctor [facility] XR CHEST 1 VIEW PORTABLE / 2020-12-08 07:54:00 Kvng Crane [facility] CBC W/PLT COUNT & AUTO 2020-12-08 04:39:00 Downs Aundrea, [facility] DIFFER[facility] BASIC METABOLIC PANEL (7) 2020-12-08 04:39:00 Downs Aundrea, CH I [facility] CBC W/PLT COUNT & AUTO 2020-12-08 04:39:00 Downs Aundrea, [facility] DIFFERENTIAL [facility] MAGNESIUM 2020-12-08 04:39:00 Downs Aundrea, [facility] B-TYPE NATRIURETIC FACTOR 2020-12-07 03:34:[address] [facility] (BNP) [facility] XR CHEST 1 VIEW PORTABLE / 2020-12-06 13:03:00 Perfecto Diaz [facility] BASIC METABOLIC PANEL (7) 2020-12-06 11:41:00 Perfecto Diaz CH I [facility] MAGNESIUM 2020-12-06 11:41:00 Perfecto Diaz [facility] B-TYPE NATRIURETIC FACTOR 2020-12-06 11:41:00 Perfecto Diaz CH I [facility] (BNP) [facility] ECG 12-LEAD 2020-12-05 10:53:[address] [facility] TRANSESOPHAGEAL ECHO 2020-12-05 09:39:19 Josh Toribio [facility] CBC W/PLT COUNT & AUTO 2020-12-05 05:17:00 Андрей Goetz [facility] BASIC METABOLIC PANEL (7) 2020-12-05 05:17:00 Андрей Goetz CH I [facility] HEPATIC FUNCTION PANEL 2020-12-05 05:17:00 Bishnu, [facility] CBC W/PLT COUNT & AUTO 2020-12-05 05:17:00 Андрей Goetz [facility] DIFFERENTIAL [facility] CARDIOVERSION 2020-12-05 00:31:19 Josh Toribio [facility] HIGH SENSITIVITY TROPONIN 2020-12-04 18:35:00 Bishnu, [facility] 2D ECHO W/ DOPPLER 2020-12-04 14:07:[address] [facility] (CW/PW/COLOR) [facility] CT CHEST FOR PULMONARY 2020-12-04 05:36:00 Bishnu [facility] EMBOLUS [facility] XR CHEST 1 VIEW PORTABLE / 2020-12-04 04:08:00 Андрей Goetz [facility] - BEDSIDE [facility] SARS-COV2/RT-PCR ([facility] & 2020-12-04 03:48:00 Bishnu, [facility] - REF LABS) [facility] CBC W/PLT COUNT & AUTO 2020-12-04 03:41:00 Bishnu [facility] BASIC METABOLIC PANEL (7) 2020-12-04 03:41:00 Bishnu [facility] HEPATIC FUNCTION PANEL 2020-12-04 03:41:00 Bishnu, [facility] CBC W/PLT COUNT & AUTO 2020-12-04 03:41:00 Bishnu, [facility] DIFFERENTIAL [facility] HIGH SENSITIVITY TROPONIN 2020-12-04 03:41:00 Bishnu [facility] B-TYPE NATRIURETIC FACTOR 2020-12-04 03:41:00 Bishnu [facility] (BNP) [facility] CBC W/PLT COUNT & AUTO 2020-12-03 23:21:00 Bishnu, Андрей [facility] BASIC METABOLIC PANEL (7) 2020-12-03 23:21:00 Bishnu [facility] HEPATIC FUNCTION PANEL 2020-12-03 23:21:[address] [facility] MAGNESIUM 2020-12-03 23:21:[address] [facility] PHOSPHORUS 2020-12-03 23:21:00 Bishnu, [facility] PROTHROMBIN TIME/INR 2020-12-03 23:21:00 Bishnu, [facility] CBC W/PLT COUNT & AUTO 2020-12-03 23:21:00 Bishnu, [facility] TSH/FREE T4 IF INDICATED 2020-12-03 23:21:00 Bishnu, [facility] HIGH SENSITIVITY TROPONIN 2020-12-03 23:21:00 Bishnu, [facility] D-DIMER 2020-12-03 23:21:[address] [facility] VITAMIN B12 AND FOLATE 2020-12-03 23:21:[address] [facility] ECG 12-LEAD 2020-12-03 23:12:15 [facility] ECG 12-LEAD 2020-12-03 23:07:40 Unknown, Hl7 Doctor [facility] REPORT OF PROCEDURE - 2020-12-03 00:00:00 Provider, Andrew [facility] ENDOSCOPY SCAN Scanning [facility] Plan of Care Planned Activity Planned Date [...] 00:00:00 (1 of 1 - Medical Center [id number] PCV13) [code = PNEUMOCOCCAL 65+ YRS (1 of 1 - [id number] PCV13)] Future Scheduled 1991 SHINGLES VACCINES (1 [...] Center SCREENING] Future Scheduled [facility]procedure[facility] [code = 476516262] Future Scheduled SHINGLES VACCINES (#1) [facility] [code = SHINGLES VACCINES (#1)] Future Scheduled 65+ [facility]OCO[facility] VACCINE (1 of 1 - PPSV23) [code = 65+ PNEUMOCOCCAL VACCINE (1 of 1 - PPSV23)] Future Scheduled INFLUENZA [facility]ACCINE [facility] [code = INFLUENZA VACCINE] Encounters Start End Encounter Admission Attending Care Care Encounter Source Date/Time Date/Time Type Type Clinicians Facility Department ID 2020-12-03 Inpatient ER NENA, [facility] Cardiology [id number] [facility] 22:07:00 DOMINIQUE 2021-04-17 2021-04-17 Outpatient R LAURENT [facility] [id number] Univers 15:45:00 23:59:00 LAURA taylor [facility] 2021-04-17 2021-04-17 Hospital Laurent [facility] [id number] Univers 15:45:00 23:59:00 Encounter Laura [facility] [id number] ity of [place] [id number] [place] as SABRA?BLEA [phone] Me cong PEREZ [address] [facility] OFFICE [facility] 2021-04-17 2021-04-17 [facility] [id number] Univers 15:45:00 15:45:00 LAURA [id number] ity of [facility] 2021-04-15 2021-04-15 [facility] [id number] Univers 00:00:00 00:00:00 Laura Bush [facility] [id number] it y of [place] 4.2.7.2.686 [place] as SABRA?BLEA [id number] Dc cong PEREZ [address] [facility] OFFICE [facility] 2021-03-26 2021-03-26 Orders Doctor STEPHANIE [id number] Univers 00:00:00 00:00:00 Only Unassigned, JANE [id number] ity of [place] [facility] 4.2.7.2.686 [place] as [phone] [address] 2021-03-25 2021-03-25 Telephone [facility] [id number] Univers 00:00:00 00:00:00 Laura Bush HEALTH [id number] it y of [place] 4.2.7.2.686 [place] as SABRA?BLEA [phone] Me cong PEREZ [address] [facility] OFFICE [facility] 2021-03-22 2021-03-22 Telephone [facility] [id number] Univers 00:00:00 00:00:00 Laura Bush HEALTH [id number] it y of [place] [id number] [place] as SABRA?BLEA [id number] Dc cong PEREZ [address] [facility] OFFICE [facility] 2021-03-18 2021-03-18 Orders Doctor STEPHANIE [id number] Univers 00:00:00 00:00:00 Only Unassigned, JANE [id number] ity of [place] [facility] [id number] [place] as [id number] [address] 2021-03-12 2021-03-12 [facility]phone [facility] [id number] Univers 00:00:00 00:00:00 Jonathon Calles [facility] [id number] it y of [place] 4.2.7.2.686 [place] as SABRA?BLEA [phone] Dc cong [address] MEDICAL OFFICE BUILDING 2021-03-04 2021-03-04 Office [facility] [id number] Univers 13:34:19 14:01:40 Visit Laura Bush [facility] [id number] [facility] [id number] [place] as SABRA?BLEA [phone] Dc cong [address] OFFICE [facility] 2021-03-04 2021-03-04 [facility] [id number] Univers 13:30:00 [facility]:01:[facility] 2020-12-03 2020-12-09 [facility] Dominique Reynoso [place] [facility] [id number] [facility] 22:07:00 12:43:00 Encounter Андрей Goetz Yashash D [facility] Perfect[facility] 2020-12-08 2020-12-08 Orders [facility] [id number] 00:00:00 00:00:00 Only [facility] 2020-12-05 2020-12-05 Outpatient [facility] [id number] [facility] 00:00:00 23:59:00 Shagufta Medicarnie higgins 2020-12-04 2020-12-04 Travel [facility] [id number] [facility] 00[facility]:00 [facility] 2020-08-27 2020-08-27 [facility] 1.2.840.1 [id number] [facility] 08:36:31 23:59:00 Encounter [facility]an [address]11.1.[address] 3.430.2.7 Hospit a .3.804031 l .8 2020-07-03 2020-07-03 Office [place], 1.2.840.1 [id number] Methodi 13:03:28 13:29:49 Visit Renan [address]97.1.[address] 3.430.2.7 Hospit a .3.325013 l .8 2020-07-03 2020-07-03 Travel 1.2.840.1 1.2.541.908 [id number] Methodi 00:00:00 00:00:[address] 3.430.2.7 0.2.7.3.698 Ho spita .3.125817 084.8 l .8 Results Test Description Test Time Test Comments Results Result Comments Source High Sensitivity Troponin I ([facility] Only) 2020-12-08 1 7:20:00 Test Item Value Reference Range Interpretation Comme nts Troponin I HS (test 6 pg/ml See_Comment [Aut omated message] The code = 75152-9) system which generated this result tra nsmitted reference range : <=17. The reference r guillaume was not used to int erpret this result as normal/abnormal . GERALD (test code = GERALD) Machine Bookkeeper ID - DBThe ANIMAL SKINNER STAT High Sensitivity Troponin-I results should be used in conjunction with other diagnostic information such as ECG, clinical observations and information, and patient symptoms to aid in the diagnosis of TX. Lab Interpretation (test Normal code = 25914-8) [facility]OP[facility]IN [id number] 17:20:00 Test Item Value Reference Range Interpretation Comments HIGH SENSITIVITY 6 pg/ml See_Comment [Automated message] TROPONIN I (test code = The system which [id number]) generated this result transmitted ref erence range: <=17. Th e reference range was not used to interpr et this result as normal/abnormal . Machine Bookkeeper ID - DBThe ANIMAL SKINNER STAT High Sensitivity Troponin-I results should be used in conjunctionwith other diagnostic information such as ECG, clinical observations and information, and patient symptoms to aid in the diagnosis of TX.RAD, CHEST, 1 VIEW, NON [id number] 10:23:00Reason for exam:->pulm edemaShould this be performed at the bedside?->Yes [facility] : 1940 Sex: FFINAL REPORT HISTORY: Pulmonary edema COMPARISON: 12/06/2020 FIND INGS: Mild interstitial pulmonary edema. No pleural effusions or pneumothorax. The heart shadow is borderline enlarged. The thoracic aorta is mildly tortuous. There are postoperative changes in the cervical spine. A right shoulder arthroplasty is partially imaged. Signed: Kenia Reneport Verified Date/Time: 12/08/2020 10:23:36 Reading Location: [address] Transitional Reading Room Basic Metabolic [id number] 05:46:00 Test Item Value Reference Range Interpretation Comments Sodium (test code = 140 meq/L 767-083 4969-2) Potassium (test code = 3.4 meq/L 3.5-5.1 L 2823-3) Chloride (test code = 108 meq/L 98-107 H 5-0) CO2 (test code = 25 meq/L 22-29 2027-9) BUN (test code = 11 mg/dL - 3094-0) Creatinine (test code 1.12 mg/dL 0.57-1.25 = 2160-0) Glucose (test code = 113 mg/dL 70-105 H 2345-7) Calcium (test code = 8.9 mg/dL 8.4-10.2 46549-9) EGFR (test code = 47 mL/min/1.73 [place] [address]-2) NOT ACCURATE CREATININE CLEARANCE IN PREDICTING GLOMERULAR FILTRATION RATE . ESTIMATED GFR I S NOT APPLICABLE FOR DIALYSIS PATIENTS. GERALD (test code = GERALD) Machine Bookkeeper ID - EMIL Field Lab Interpretation Abnormal (test code = 28431-0) [facility] 05:46:00 Test Item Value Reference Range Interpretation Comments Magnesium (test code = 1.7 mg/dL 1.6-2.6 23849-6) GERALD (test code = GERALD) Machine Bookkeeper ID - EMIL Field Lab Interpretation (test Normal code = 89881-2) [facility] [id number] 05:46:00 Test Item Value Reference Range Interpretation Comments SODIUM (BEAKER) 140 meq/L 136-145 (test code = 381) POTASSIUM (BEAKER) 3.4 meq/L 3.5-5.1 L (test code = 379) CHLORIDE (BEAKER) 108 meq/L 98-107 H (test code = 382) CO2 (BEAKER) (test 25 meq/L 22-29 code = 355) BLOOD UREA NITROGEN 11 mg/dL 7-21 (BEAKER) (test code = 354) CREATININE (BEAKER) 1.12 mg/dL 0.57-1.25 (test code = 358) GLUCOSE RANDOM 113 mg/dL 70-105 H (BEAKER) (test code = 652) CALCIUM (BEAKER) 8.9 mg/dL 8.4-10.2 (test code = 697) EGFR (BEAKER) (test 47 mL/min/1.73 ESTIMA VANESA GFR IS code = 1092) sq m NOT ACCURATE CREATININE CLEARANCE IN PREDICTING GLOMERULAR FILTRATION RATE . ESTIMATED GFR I S NOT APPLICABLE FOR DIALYSIS PATIEN TS. Machine Bookkeeper ID - EMIL [id number] 05:46:00 Test Item Value Reference Range Interpretation Comments MAGNESIUM (BEAKER) (test code = 1.7 mg/dL 1.6-2.6 627) Machine Bookkeeper ID - EMIL MCBC with platelet count + automated [id number] 05:04:00 Test Item Value Reference Range Interpretation Comments WBC (test code = 6690-2) 5.7 See_Comment [A utomated message] The system [employer] generated this result transmitted ref erence range: 3.5 - 10 .5 K/L. The refe rence range was not u sed to interpret this result as normal/abnor mal. RBC (test code = 789-8) 3.85 See_Comment L [Au tomated message] The system [employer] generated this result transmitted ref erence range: 3.93 - 5 .22 M/L. The refe rence range was not u sed to interpret this result as normal/abnor mal. MCHC (test code = 786-4) 30.9 See_Comment L [A utomated message] The system [employer] generated this result transmitted ref erence range: [...] See_Comment [Aut omated message] 777-3) The system [employer] generated this result transmitted ref erence range: 150 - 45 0 K/CU MM. The referen ce range was not u sed to interpret this result as normal/abnor mal. MPV (test code = 9.5 fL 9.4-12.3 62387-3) nRBC (test code = 413) 0 See_Comment [Aut omated message] The system [employer] generated this result transmitted ref erence range: [...] See_Comment [Aut omated message] 670) The system [employer] generated this result transmitted ref erence range: 1.56 - 6 .13 K/L. The refe rence range was not u sed to interpret this result as normal/abnor mal. # Lymphs (test code = 1.83 See_Comment [Auto mated message] 414) The system [employer] generated this result transmitted ref erence range: 1.18 - 3 .74 K/L. The refe rence range was not u sed to interpret this result as normal/abnor mal. # Monos (test code = 0.60 See_Comment H [Autom ated message] 415) The system [employer] generated this result transmitted ref erence range: 0.24 - 0 .36 K/L. The refe rence range was not u sed to interpret this result as normal/abnor mal. # Eos (test code = 416) 0.26 See_Comment [Au tomated message] The system [employer] generated this result transmitted ref erence range: 0.04 - 0 .36 K/L. The refe rence range was not u sed to interpret this result as normal/abnor mal. # Baso (test code = 417) 0.05 See_Comment [A utomated message] The system [employer] generated this result transmitted ref erence range: 0.01 - 0 .08 K/L. The refe rence range was not u sed to interpret this result as normal/abnor mal. Immature 1 % 0-1 Granulocytes-Relative (test code = 2801) Lab Interpretation (test Abnormal code = 86404-7) [facility] W/PLT COUNT & AUTO [id number] 05:04:00 Test Item Value Reference Range Interpretation [...] Range Interpretation Comments BNP (test code = 53033-6) 97 pg/mL 0-100 GERALD (test code = GERALD) Machine Bookkeeper ID - RUDOLPHAYA L Lab Interpretation (test Normal code = 18313-5) [facility] NATRIURETIC FACTOR (BNP)2020-12-07 04:52:00 Test Item Value Reference Range Interpretation Comments B-TYPE NATRIURETIC PEPTIDE (BEAKER) 97 pg/mL 0-100 (test code = 700) Machine Bookkeeper MARÍA ALVARADO LRAD, CHEST, 1 VIEW, NON [id number] 14:01:00Reason for exam:->dyspneaShould this be performed at the bedside?->Yes [facility] 1940 Sex: FFINAL [...] hardware is again seen. Signed: Lacy Donald MDReport Verified Date/Time: 12/06/2020 14:01:32 Reading Location: [facility] Radiology Reading Room Electronicallysigned by: LACY DONALD M.D. on 12/06/2020 02:01 PMBASI METABOLIC [id number] 12:22:00 Test Item Value Reference Range Interpretation [...] 697) EGFR (BEAKER) (test 42 mL/min/1.73 ESTIMA VANESA GFR IS code = 1092) sq m NOT ACCURATE CREATININE CLEARANCE IN PREDICTING GLOMERULAR FILTRATION RATE . ESTIMATED GFR I S NOT APPLICABLE FOR DIALYSIS PATIEN TS. Machine Bookkeeper ID - [id number] 12:22:00 Test Item Value Reference Range Interpretation Comments MAGNESIUM (BEAKER) (test code = 1.7 mg/dL 1.6-2.6 627) Machine Bookkeeper ID - JAYASHREESONB-TYPE NATRIURETIC FACTOR (BNP)2020-12-06 12:13:00 Test Item Value Reference Range Interpretation Comments B-TYPE NATRIURETIC PEPTIDE (BEAKER) 88 pg/mL 0-100 (test code = 700) Machine Bookkeeper ID - EMERSONTransesophageal [id number] 21:25:57Ejection FractionSLEH ECHO HEARTLAB MKCKESSON [facility] HospitalHepatic function [id number] 06:35:00 Test Item Value Reference Range Interpretation Comments Protein, Total (test 5.4 See_Comment L [Autom ated code = 2885-2) message] The system which generated this result transmit vanesa reference range : 6.0 - 8.3 gm/dL . The reference range was not u sed to interpret th is result as normal/abnormal . Albumin (test code = 2.7 g/dL 3.5-5.0 L 91977-7) Total Bilirubin (test 0.1 mg/dL 0.2-1.2 L code = 1975-2) Bilirubin, Direct 0.1 mg/dL 0.1-0.5 (test code = 1968-7) Alkaline Phosphatase 80 U/L 40-150 (test code = 6768-6) AST (test code = 15 U/L 5-34 1920-8) ALT (test code = 8 U/L 6-55 4492-6) GERALD (test code = GERALD) Machine Bookkeeper ID - JENNY L Lab Interpretation Abnormal (test code = 89079-3) [facility]OLIC [id number] 06:35:00 Test Item Value Reference Range Interpretation [...] 697) EGFR (BEAKER) (test 47 mL/min/1.73 ESTIMA VANESA GFR IS code = 1092) sq m NOT ACCURATE CREATININE CLEARANCE IN PREDICTING GLOMERULAR FILTRATION RATE . ESTIMATED GFR I S NOT APPLICABLE FOR DIALYSIS PATIEN TS. Machine Bookkeeper ID - PIAYA LHEPATIC FUNCTION [id number] 06:35:00 Test Item Value Reference Range Interpretation [...] (test code = 8 U/L 6-55 347) Machine Bookkeeper ID - PIAYA LCBC W/PLT COUNT & AUTO [id number] 05:44:00 Test Item Value Reference Range Interpretation [...] Comments SARS-COV2/RT-PCR (test Negative Negative code = 51855-0) GERALD (test code = GERALD) Negative result [...] Healthcare Providers:https://www.ric carrillo/bebo/RT SARS-CoV-2 HCP Fact Sheet 51-780280.pdf Fact Sheet for Healthcare Patients:https://www.abdullahi king/bebo/RT SARS-CoV-2 Patient Fact Sheet EN 51-595981B9.pdf Lab Interpretation Normal (test code = 44144-8) [facility])2020-12-04 23:22:00 Test Item Value Reference Range Interpretation Comments SARS-COV2/RT-PCR (test code = Negative Negative 6855275) Negative result for this test determines that [...] the Campos SARS-CoV-2 assay.Fact Sheet for Healthcare Providers:https://www.molecular.campos/bebo/RT SARS-CoV-2 HCP Fact Sheet 51- 359137.pdfFact Sheet for Healthcare Patients:https://www.molecular.campos/bebo/RT SARS-CoV-2 Patient Fact Sheet EN 51-643336B1.pdfHIGH SENSITIVITY TROPONIN I 2020-12-04 19:21:00 Test Item Value Reference Range Interpretation Comments HIGH SENSITIVITY 8 pg/ml See_Comment [Automated message] TROPONIN I (test code = The system which 1525270) generated this result transmitted ref erence range: <=17. Th e reference range was not used to interpr et this result as normal/abnormal . Machine Bookkeeper MARÍA - geri Mann ANIMAL SKINNER STAT High Sensitivity Troponin-I results should be used in conjunction with other diagnostic information such as ECG, clinical observations and information, and patient symptoms to aid in the diagnosis of TX.2D Echo W/Doppler(CW/PW/Color)2020-12-04 17:56:11Ejection FractionSLE ECHO HEARTLAB MKCKESSON CPACSCH[facility]aventuraCT, CHEST WITH IV CONTRAST- PE TEST [id number] 06:05:00Unlisted Reason for Exam - Click Yes and Enter Reason Below->No [facility] 1940 Sex: FFINAL [...] PET/CT, or tissue sampling. Signed: Cosme Alvarez MDRconnecticut children's medical center Verified Date/Time: 12/04/2020 06:05:30 HEPATIC FUNCTION [id number] 06:00:00 Test Item Value Reference Range Interpretation [...] (test code = 7 U/L 6-55 347) Machine Bookkeeper ID - EMIL MOperator ID - PIAYA LBASIC METABOLIC [id number] 05:13:00 Test Item Value Reference Range Interpretation [...] 697) EGFR (BEAKER) (test 51 mL/min/1.73 ESTIMA VANESA GFR IS code = 1092) sq m NOT ACCURATE CREATININE CLEARANCE IN PREDICTING GLOMERULAR FILTRATION RATE . ESTIMATED GFR I S NOT APPLICABLE FOR DIALYSIS PATIEN TS. Machine Bookkeeper ID - EMIL MVitamin B12 and [id number] 04:44:00 Test Item Value Reference Range Interpretation Comments Vitamin B12 (test 272 pg/mL 213-816 code = 2132-9) Folate (test code = 7.70 ng/mL See_Comment [Automa vanesa 2284-8) message] The system which generated this result transmit vanesa reference range : >=7.00. The reference range was not used to interpret this result as normal/abnormal . GERALD (test code = GERALD) Machine Bookkeeper ID - EMIL Field Lab Interpretation Normal (test code = 30844-8) [facility] HospitalVITAMIN B12 AND [id number] 04:44:00 Test Item Value Reference Range Interpretation Comments VITAMIN B12 (BEAKER) 272 pg/mL 213-816 (test code = 774) FOLATE (BEAKER) 7.70 ng/mL See_Comment [Automated message] (test code = 362) The system which generated this result transmitted ref erence range: >=7.00. The reference range was not used to interpr et this result as normal/abnormal . Machine Bookkeeper ID - EMIL MRAD, CHEST, 1 VIEW, NON [id number] 04:41:00Reason for exam:->afibShould this be performed at the bedside?->Yes [facility] 1940 Sex: FFINAL REPORT [...] Verified Date/Time: 12/04/2020 04:41:03 HIGH SENSITIVITY TROPONIN [id number] 04:36:00 Test Item Value Reference Range Interpretation Comments HIGH SENSITIVITY 8 pg/ml See_Comment [Automated message] TROPONIN I (test code = The system which 3159748) generated this result transmitted ref erence range: <=17. Th e reference range was not used to interpr et this result as normal/abnormal . Machine Bookkeeper ID - EMIL [facility] ANIMAL SKINNER STAT High Sensitivity Troponin-I results should be used in conjunction with other diagnostic information such as ECG, clinical observations and information, and patient symptoms to aid in the diagnosis of TX.B-TYPE NATRIURETIC FACTOR (BNP)2020-12-04 04:27:00 Test Item Value Reference Range Interpretation Comments B-TYPE NATRIURETIC PEPTIDE (BEAKER) 144 pg/mL 0-100 H (test code = 700) Machine Bookkeeper ID - EMIL MCBC W/PLT COUNT & AUTO [id number] 04:01:00 Test Item Value Reference Range Interpretation [...] (test code = 2801) TSH/Free T4 If [id number] 00:19:00 Test Item Value Reference Range Interpretation Comments TSH (test code = 1.723 See_Comment [Automated 73265-0) message] The system which generated this result transmit vanesa reference range : 0.350 - 4.940 uIU/mL. The reference range was not used to interpret this result as normal/abnormal . GERALD (test code = GERALD) Machine Bookkeeper ID - JENNY L Lab Interpretation Normal (test code = 60511-9) [facility] HospitalTSH/FREE T4 IF [id number] 00:19:00 Test Item Value Reference Range Interpretation Comments THYROID STIMULATING HORMONE 1.723 uIU/mL 0.350-4.940 (BEAKER) (test code = 772) Machine Bookkeeper ID - JENNY ARELLANOIGH SENSITIVITY TROPONIN [id number] 00:02:00 Test Item Value Reference Range Interpretation Comments HIGH SENSITIVITY 7 pg/ml See_Comment [Automated message] TROPONIN I (test code = The system which 1323390) generated this result transmitted ref erence range: <=17. Th e reference range was not used to interpr et this result as normal/abnormal . Machine Bookkeeper ID - DBThe ANIMAL SKINNER STAT High Sensitivity Troponin-I results should be used in conjunctionwith other diagnostic information such as ECG, clinical observations and information, and patient symptoms to aid in the diagnosis of TX.[id number] 23:58:00 Test Item Value Reference Range Interpretation Comments Phosphorus (test code = 3.3 mg/dL 2.3-4.7 2777-1) GERALD (test code = GERALD) Machine Bookkeeper ID - DB Lab Interpretation (test Normal code = 35249-1) [facility] METABOLIC [id number] 23:58:00 Test Item Value Reference Range Interpretation [...] 697) EGFR (BEAKER) (test 48 mL/min/1.73 ESTIMA VANESA GFR IS code = 1092) sq m NOT ACCURATE CREATININE CLEARANCE IN PREDICTING GLOMERULAR FILTRATION RATE . ESTIMATED GFR I S NOT APPLICABLE FOR DIALYSIS PATIEN TS. Machine Bookkeeper ID - [id number] 23:58:00 Test Item Value Reference Range Interpretation Comments MAGNESIUM (BEAKER) (test code = 1.7 mg/dL 1.6-2.6 627) Machine Bookkeeper ID - [id number] 23:58:00 Test Item Value Reference Range Interpretation Comments PHOSPHORUS (BEAKER) (test code = 3.3 mg/dL 2.3-4.7 604) Machine Bookkeeper ID - DBHEPATIC FUNCTION [id number] 23:58:00 Test Item Value Reference Range Interpretation [...] (test code = 9 U/L 6-55 347) Machine Bookkeeper ID - [id number] 23:42:00 Test Item Value Reference Range Interpretation Comments D-Dimer, Quant (test 1.26 See_Comment H [Autom ated code = 04089-7) message] The system which generated this result [...] range. Lab Interpretation Abnormal (test code = 06471-9) [facility] HospitalD-[id number] 23:42:00 Test Item Value Reference Range Interpretation [...] of thrombosis is within 95-100% range. Prothrombin time/[id number] 23:39:00 Test Item Value Reference Interpretation Comments Range Protime (test code = 15.4 See_Comment H [Autom ated 5902-2) message] The system which generated this result transmitted reference range : 11.9 - 14.2 seconds. The reference range was not used to interpret this result as normal/abnormal . INR (test code = 1.24 See_Comment [Automated 6301-6) message] The system which generated this result [...] valves. Lab Interpretation Abnormal (test code = 25242-6) [facility] HospitalPROTHROMBIN TIME/[id number] 23:39:00 Test Item Value Reference Range Interpretation Comments PROTIME (BEAKER) 15.4 seconds 11.9-14.2 H (test code = 759) INR (BEAKER) (test 1.24 See_Comment [Automat ed message] code = 370) The system whic h generated this result transmitted ref erence range: [...] % 0-1 PERCENT (BEAKER) (test code = 6533)
[2021-04-18 13:42] LABS: Absolute Lymphocytes (CBC) 0.7 K/uL (0.7-4.9); Hematocrit 38.5 % (36.0-45.0); Lymphocytes % 5.9 % (15.3-44.8); RBC Red Blood Cell Count 4.01 M/uL (3.86-4.86)
[2021-04-18 13:46] LABS: Protime INR 1.49
[2021-04-18 13:59] LABS: ALT/SGPT 12 U/L (12-78); AST/SGOT 13 U/L (15-37); Albumin 2.3 g/dL (3.4-5.0); Alkaline Phosphatase 102 U/L (45-117); BUN Blood Urea Nitrogen 19 mg/dL (7-18); Bicarbonate 24 mmol/L (21-32); Bilirubin Direct 0.2 mg/dL (0-0.2); Bilirubin Total 0.5 mg/dL (0.2-1.0); Glucose Level 209 mg/dL (74-106); Magnesium 1.8 mg/dL (1.8-2.4); NT PRO-BNP 936 pg/mL (<450); Potassium 4.6 mmol/L (3.5-5.1); Sodium Level 136 mmol/L (136-145); Troponin (Emerg Dept Use Only) < 0.02 ng/mL (0.0-0.045)
--- NOTE | 2021-04-18 13:59 | ER ---
Nurse's Notes [facility] Name: Agnes Calabrese Age: 81 yrs Sex: Female : 1940 Arrival Date: 04/18/2021 Time: 11:51 Bed 4 Private MD: Diagnosis: Dyspnea;Hypotension, unspecified;Acute upper respiratory infection, unspecified;Obesity, unspecified;Fever, unspecified;COPD/ Chronic obstructive pulmonary disease, unspecified Presentation: 04/18 11:55 Chief complaint: EMS states: FEVER AT [facility]. Coronavirus screen: At this time, bp the client does not indicate any symptoms associated with coronavirus-19. Ebola Screen: No symptoms or risks identified at this time. Initial Sepsis Screen: Does the patient meet any 2 criteria? No. Patient's initial sepsis screen is negative. Does the patient have a suspected source of infection? No. Patient's initial sepsis screen is negative. Risk Assessment: Do you want to hurt yourself or someone else? Patient reports no desire to harm self or others. Onset of symptoms was April 18, 2021. 11:55 Method Of Arrival: EMS bp 11:55 Acuity: WARREN 3 bp Triage Assessment: 12:55 General: Appears in no apparent distress. uncomfortable, obese, Behavior is calm, bp cooperative, anxious. Pain: Denies pain. EENT: No deficits noted. Neuro: Level of Consciousness is awake, alert, obeys commands, Oriented to Appropriate for age. Cardiovascular: No deficits noted. Respiratory: No deficits noted. GI: No signs and/or symptoms were reported involving the gastrointestinal system. Abdomen is non-distended, obese. : No signs and/or symptoms were reported regarding the genitourinary system. Derm: No deficits noted. Musculoskeletal: No deficits noted. Historical: - Allergies: 12:55 clindamycin HCl (bulk); bp 12:55 Darvocet-N 100; bp 12:55 PENICILLINS; bp 12:55 Strawberries; bp 12:55 Sulfa (Sulfonamide Antibiotics); bp - PMHx: 12:55 skipped heart beats; lymphedema; insomnia; GERD; Fibromyalgia; Depression; Cancer; bp - Immunization history:: Adult Immunizations up to date. - Social history:: Smoking status: Patient denies any tobacco usage or history of. Screenin:58 Abuse screen: Denies threats or abuse. Denies injuries from another. Nutritional bp screening: No deficits noted. Tuberculosis screening: No symptoms or risk factors identified. Fall Risk None identified. Assessment: 12:58 General: SEE TRIAGE NOTE. bp 15:00 Reassessment: No changes from previously documented assessment. Patient and/or family bp updated on plan of care and expected duration. Pain level reassessed. ADMIT INITIATED. Vital Signs: 12:00 BP 80 / 64; Pulse 61; Resp 23; Pulse Ox 100% ; bp 13:00 BP 93 / 55; Pulse 55; Resp 17; Pulse Ox 100% ; bp 14:00 BP 96 / 57; Pulse 54; Resp 17; Pulse Ox 100% ; bp 15:00 BP 104 / 72; Pulse 57; Resp 16; Pulse Ox 100% ; bp 16:00 BP 89 / 78; Pulse 69; Resp 16; Pulse Ox 100% ; bp 12/31 12:14 Weight 93 kg; Height 5 ft. 3 in. (160.02 cm); jl7 12:14 Body Mass Index 36.32 (93.00 kg, 160.02 cm) 7 ED Course: 04/18 11:51 Patient arrived in ED. as 11:57 Rodriguez Berry MD is Attending Physician. mady 12:02 Heron Lopez, DANIEL is Primary Nurse. bp 12:54 Triage completed. bp 12:55 Arm band placed on. bp 12:55 Inserted saline lock: 18 gauge in right EJ, using aseptic technique. Blood collected. bp 12:58 Patient has correct armband on for positive identification. Bed in low position. Call bp light in reach. Side rails up X2. 13:54 Socrates Stock is Hospitalizing Provider. mady 14:48 XRAY Chest (1 view) In Process Unspecified. EDMS 18:47 Wade cath inserted, using sterile technique, 16 Fr., by ca, balloon inflated, to bp gravity drainage, returned clear yellow urine. Patient tolerated well. Administered Medications: 13:15 Drug: Pepcid (famotidine) 20 mg Route: IVP; Site: left jugular; bp 13:15 Drug: Rocephin (cefTRIAXone) 1 grams Route: IV; Rate: per protocol; Site: left jugular; bp 13:15 Drug: NS 0.9% 1000 ml Route: IV; Rate: 125 ml/hr; Site: left jugular; bp 15:00 Drug: Zithromax (azithromycin) 500 mg Route: IVPB; Infused Over: 1 hrs; Site: left bp jugular; 15:00 Drug: NS 0.9% 1000 ml Route: IV; Rate: 1 bolus; Site: left jugular; bp 15:45 Drug: SOLU-Medrol (methylPrednisoLONE) 125 mg Route: IVP; Site: left jugular; bp 15:45 Drug: Xopenex (levalbuterol) 2.5 mg Route: Inhalation; bp 15:45 Drug: AtroVENT (ipratropium) Aerosol 0.5 mg Route: Inhalation; bp Outcome: 13:58 Decision to Hospitalize by Provider. mady 04/19 15:21 Patient left the ED. jl7 Signatures: Dispatcher [employer] Rodriguez Chong MD MD cha Martinez, Amelia as Leal, Jahala, RN RN jl7 Heron Lopez RN RN bp
--- NOTE | 2021-04-18 13:59 | EDPHYS ---
Physician Documentation [facility] Name: Agnes Calabrese Age: 81 yrs Sex: Female : 1940 Arrival Date: 04/18/2021 Time: 11:51 Bed 4 Private MD: ED Physician Rodriguez Berry HPI: 04/18 13:48 This 81 yrs old Female presents to ER via EMS with complaints of Fever. mady 13:48 The patient reports fever, not measured (subjective), that was measured at 100 degrees mady Fahrenheit. Onset: The symptoms/episode began/occurred 3 day(s) ago. Modifying factors: there are no obvious modifying factors. Associated signs and symptoms: Pertinent positives: chills, cough, headache, sinus congestion, sinus drainage. Severity of symptoms: At their worst the symptoms were moderate in the emergency department the symptoms are unchanged. The patient has not experienced similar symptoms in the past. Historical: - Allergies: 12:55 clindamycin HCl (bulk); bp 12:55 Darvocet-N 100; bp 12:55 PENICILLINS; bp 12:55 Strawberries; bp 12:55 Sulfa (Sulfonamide Antibiotics); bp - PMHx: 12:55 skipped heart beats; lymphedema; insomnia; GERD; Fibromyalgia; Depression; Cancer; bp - Immunization history:: Adult Immunizations up to date. - Social history:: Smoking status: Patient denies any tobacco usage or history of. ROS: 13:51 Constitutional: Negative for fever, chills, and weight loss, Eyes: Negative for injury, mady pain, redness, and discharge, ENT: Negative for injury, pain, and discharge, Neck: Negative for injury, pain, and swelling, Cardiovascular: Negative for chest pain, palpitations, and edema, Abdomen/GI: Negative for abdominal pain, nausea, vomiting, diarrhea, and constipation, Back: Negative for injury and pain, : Negative for injury, bleeding, discharge, and swelling, MS/Extremity: Negative for injury and deformity, Neuro: Negative for headache, weakness, numbness, tingling, and seizure, Psych: Negative for depression, anxiety, suicide ideation, homicidal ideation, and hallucinations, Allergy/Immunology: Negative for hives, rash, and allergies, Endocrine: Negative for neck swelling, polydipsia, polyuria, polyphagia, and marked weight changes, Hematologic/Lymphatic: Negative for swollen nodes, abnormal bleeding, and unusual bruising. 13:51 Respiratory: Positive for cough, shortness of breath, wheezing, expiratory. 13:51 Skin: Positive for pallor. Exam: 13:51 Constitutional: This is a well developed, well nourished patient who is awake, alert, mady and in no acute distress. Head/Face: Normocephalic, atraumatic. Eyes: Pupils equal round and reactive to light, extra-ocular motions intact. Lids and lashes normal. Conjunctiva and sclera are non-icteric and not injected. Cornea within normal limits. Periorbital areas with no swelling, redness, or edema. ENT: Nares patent. No nasal discharge, no septal abnormalities noted. Tympanic membranes are normal and external auditory canals are clear. Oropharynx with no redness, swelling, or masses, exudates, or evidence of obstruction, uvula midline. Mucous membranes moist. Neck: Trachea midline, no thyromegaly or masses palpated, and no cervical lymphadenopathy. Supple, full range of motion without nuchal rigidity, or vertebral point tenderness. No Meningismus. Chest/axilla: Normal chest wall appearance and motion. Nontender with no deformity. No lesions are appreciated. Respiratory: Lungs have equal breath sounds bilaterally, clear to auscultation and percussion. No rales, rhonchi or wheezes noted. No increased work of breathing, no retractions or nasal flaring. Back: No spinal tenderness. No costovertebral tenderness. Full range of motion. Female : Normal external genitalia. Skin: Warm, dry with normal turgor. Normal color with no rashes, no lesions, and no evidence of cellulitis. 13:51 Cardiovascular: Rate: normal, Rhythm: regular, Pulses: Pulses are 4+ in bilateral radial, brachial, femoral, popliteal, posterior tibial and and dorsalis pedis arteries.. Heart sounds: normal, Edema: is not appreciated, JVD: is not appreciated. 13:51 ECG was reviewed by the Attending Physician. Vital Signs: 12:00 BP 80 / 64; Pulse 61; Resp 23; Pulse Ox 100% ; bp 13:00 BP 93 / 55; Pulse 55; Resp 17; Pulse Ox 100% ; bp 14:00 BP 96 / 57; Pulse 54; Resp 17; Pulse Ox 100% ; bp 15:00 BP 104 / 72; Pulse 57; Resp 16; Pulse Ox 100% ; bp 16:00 BP 89 / 78; Pulse 69; Resp 16; Pulse Ox 100% ; bp 04/19 12:14 Weight 93 kg; Height 5 ft. 3 in. (160.02 cm); jl7 12:14 Body Mass Index 36.32 (93.00 kg, 160.02 cm) 7 MDM: 04/18 11:57 Patient medically screened. [facility] 13:53 Antibiotic administration: Rocephin and Zithromax given. Differential diagnosis: mady bronchitis, flu, URI, viral Infection, bacterial infection, URI, bronchitis, pneumonia UTI. Differential Diagnosis: Bronchitis Influenza Upper Respiratory Infection Sinusitis Asthma Exacerbation Viral Syndrome Pneumonia. Data reviewed: vital signs, nurses notes, lab test result(s), EKG, radiologic studies, plain films. Data interpreted: satellite project site monitor: rate is 55 beats/min, rhythm is regular, Pulse oximetry: on room air. Test interpretation: by ED physician or midlevel provider: ECG, plain radiologic studies. Counseling: I had a detailed discussion with the patient and/or guardian regarding: the historical points, exam findings, and any diagnostic results supporting the discharge/admit diagnosis, lab results, radiology results, the need for further work-up and treatment in the hospital. 04/18 12:54 Order name: Basic Metabolic Panel [facility] 04/18 12:54 Order name: CBC with Diff [facility] 04/18 12:54 Order name: LFT's; Complete Time: 14:09 [facility] 04/18 12:54 Order name: Magnesium; Complete Time: 14:09 [facility] 04/18 12:54 Order name: NT PRO-BNP; Complete Time: 14:09 [facility] 04/18 12:54 Order name: PT-INR; Complete Time: 13:47 [facility] 04/18 12:54 Order name: Troponin (emerg Dept Use Only); Complete Time: 14:09 [facility] 04/18 12:54 Order name: Type And Screen [facility] 04/18 12:54 Order name: Lactate; Complete Time: 14:09 [facility] 04/18 12:54 Order name: Blood Culture Adult (2) [facility] 04/18 12:54 Order name: SARS-COV-2 RT PCR (Document "Date of Onset" if Symptomatic) [facility] 04/18 12:54 Order name: Urine Culture [facility] 04/18 12:54 Order name: Basic Metabolic Panel; Complete Time: 14:09 [facility] 04/18 12:54 Order name: CBC with Automated Diff; Complete Time: 14:09 [facility] 04/18 12:54 Order name: XRAY Chest (1 view); Complete Time: 15:40 [facility] 04/18 14:05 Order name: CBC Smear Scan; Complete Time: 14:09 [facility] 04/18 15:15 Order name: Urinalysis W/Microscopic [facility] 04/18 22:24 Order name: Troponin I [facility] 04/19 04:44 Order name: CBC with Automated Diff [facility] 04/19 05:00 Order name: Troponin I [facility] 04/19 05:14 Order name: Comprehensive Metabolic Panel [facility] 04/19 05:14 Order name: Phosphorus [facility] 04/19 05:14 Order name: Lipid Profile [facility] 04/19 05:14 Order name: Magnesium [facility] 04/19 05:14 Order name: Thyroid Stimulating Hormone [facility] 04/18 12:54 Order name: EKG; Complete Time: 12:55 [facility] 04/18 12:54 Order name: Cardiac monitoring; Complete Time: 13:18 [facility] 04/18 12:54 Order name: IV Saline Lock; Complete Time: 13:18 [facility] 04/18 12:54 Order name: Labs collected and sent; Complete Time: 13:18 [facility] 04/18 12:54 Order name: O2 Per Protocol; Complete Time: 13:18 [facility] 04/18 12:54 Order name: O2 Sat Monitoring; Complete Time: 13:18 [facility] 04/18 12:54 Order name: IV Saline Lock - Large Bore; Complete Time: 13:46 [facility] EC:51 Rate is 55 beats/min. Rhythm is regular. QRS [place] is Normal. FL interval is prolonged mady at 216 msec. QRS interval is normal. QT interval is normal. No Q waves. T waves are Normal. No ST changes noted. Clinical impression: Sinus bradycardia and No evidence of ischemia. Interpreted by me. Reviewed by me. Administered Medications: 13:15 Drug: Pepcid (famotidine) 20 mg Route: IVP; Site: left jugular; bp 13:15 Drug: Rocephin (cefTRIAXone) 1 grams Route: IV; Rate: per protocol; Site: left jugular; bp 13:15 Drug: NS 0.9% 1000 ml Route: IV; Rate: 125 ml/hr; Site: left jugular; bp 15:00 Drug: Zithromax (azithromycin) 500 mg Route: IVPB; Infused Over: 1 hrs; Site: left bp jugular; 15:00 Drug: NS 0.9% 1000 ml Route: IV; Rate: 1 bolus; Site: left jugular; bp 15:45 Drug: SOLU-Medrol (methylPrednisoLONE) 125 mg Route: IVP; Site: left jugular; bp 15:45 Drug: Xopenex (levalbuterol) 2.5 mg Route: Inhalation; bp 15:45 Drug: AtroVENT (ipratropium) Aerosol 0.5 mg Route: Inhalation; bp Disposition Summary: 04/18/21 13:58 Hospitalization Ordered Hospitalization Status: Inpatient Admission mady Provider: Socrates Stock cha Condition: Fair mady Problem: new mady Symptoms: have improved mady Bed/Room Type: Standard mady Location: Telemetry/MedSurg (Inpatient)(04/19/21 13:14) dw Room Assignment: [facility](04/19/21 13:14) dw Diagnosis - Dyspnea mady - Hypotension, unspecified mady - Acute upper respiratory infection, unspecified mady - Obesity, unspecified mady - Fever, unspecified mady - COPD/ Chronic obstructive pulmonary disease, unspecified mady Forms: - Medication Reconciliation Form mady - SBAR form mady Signatures: Dispatcher [employer] EDMS Myranda Jacobson RN RN Shikha Beard RN RN Rodriguez Herrera MD MD cha Leal, Jahala RN Heron Keen RN RN bp Corrections: (The following items were deleted from the chart) 17:27 13:58 mady dw 19:25 13:58 Telemetry/MedSurg (Inpatient) mady mw 19:25 17:27 201 dw mw 21:43 19:25 Telemetry/MedSurg (Inpatient) mw mw 21:43 19:25 mw mw 04/19 13:14 04/18 21:43 [facility] ER HOLD mw dw 04/19 13:14 04/18 21:43 ERHOLD- mw dw
[2021-04-18 14:05] LABS: Blood Morphology Comment NOT SEEN (NOT SEEN); Platelet Estimate ADEQ; White Blood Cell Scan OK (OK)
[2021-04-18] MEDS ORDERED: NA CHLORIDE 0.9% 1,000 ML ONE ×2 (14:53→15:28)
[2021-04-18] MEDS ORDERED: CEFTRIAXONE 1000 MG/VIAL ONE (14:53)
[2021-04-18] MEDS ORDERED: NA CHLORIDE 0.9% 100 ML ONE (14:53)
[2021-04-18] MEDS ORDERED: FAMOTIDINE 20 MG/2 ML VIAL IV ONE (14:53)
--- NOTE | 2021-04-18 15:12 | RAD REPORT ---
[facility]48 [facility] CLINICAL HISTORY: cough COMPARISON: November 2020 FINDINGS: Upper lobe vessels are prominent indicative of pulmonary venous hypertension. The heart is mildly to moderately enlarged. Lungs appear clear of acute infiltrate.
[2021-04-18] MEDS ORDERED: NA CHLORIDE 0.9% 250 ML ONE (15:28)
[2021-04-18] MEDS ORDERED: AZITHROMYCIN 500 MG INJ IVPB ONE (15:28)
[2021-04-18] MEDS ORDERED: LEVALBUTEROL 1.25 MG/3 ML NEB ONE (16:20)
[2021-04-18] MEDS ORDERED: METHYLPREDNISOLONE 125 MG INJ ONE (16:20)
[2021-04-18] MEDS ORDERED: IPRATROPIUM BROM 0.5MG/2.5ML ONE (16:21)
--- NOTE | 2021-04-18 16:33 | P.HP ---
Certification for Inpatient Patient admitted to: Observation With expected LOS: <2 Midnights Practitioner: I am a practitioner with admitting privileges, knowledge of patient current condition, hospital course, and medical plan of care. Services: Services provided to patient in accordance with Admission requirements found in Title 42 Section 412.3 of the Code of Federal Regulations Patient History Date of Service: 04/18/21 Reason for admission: Fever and hypotension History of Present Illness: 81-year-old woman with a history of chronic atrial fibrillation, COPD, history of recurrent UTI was transferred from the detention to the emergency department due to hypotension. Patient also reported to have had a fever and confused. Patient not able to provide any history due to confusion. Work-up in the emergency department revealed leukocytosis with WBC count of 12,000. BMP unremarkable. EKG revealed sinus bradycardia. Chest x-ray shows no acute disease, UA not done yet. Patient systolic blood pressure ranging from 90s to 100. Blood cultures obtained in the ED. Patient noted to have nonproductive cough. She is hospitalized for further evaluation and management. Allergies clindamycin HCl [From Cleocin] Allergy (Severe, Verified 10/19/20 20:52) Hives/Rash clindamycin palmitate HCl [From Cleocin] Allergy (Severe, Verified 10/19/20 20:52) Hives/Rash clindamycin phosphate [From Cleocin] Allergy (Severe, Verified 10/19/20 20:52) Hives/Rash Penicillins Allergy (Severe, Verified 10/19/20 20:52) Hives/Rash Sulfa (Sulfonamide Antibiotics) [Sulfa(Sulfonamide Antibiotics)] Allergy (Severe, Verified 10/19/20 20:52) Hives/Rash acetaminophen [From Darvocet-N 100] Allergy (Verified 10/19/20 20:52) Unknown propoxyphene [From Darvocet-N 100] Allergy (Verified 10/19/20 20:52) Unknown strawberries Allergy (Severe, Uncoded 07/11/20 05:19) Hives/Rash Home Medications: Simvastatin 40 mg PO BEDTIME 08/05/11 Memantine HCl 10 mg PO BID 01/11/18 Metoprolol Succinate [Toprol Xl*] 25 mg PO DAILY 12/16/18 Gabapentin 300 mg PO TID 05/25/19 Pantoprazole Sodium [Protonix] 1 tab PO DAILY 02/04/20 Topiramate [Topamax] 200 mg PO BID 02/04/20 ALPRAZolam [Xanax*] 0.25 mg PO Q12HP PRN 07/11/20 Hydrocodone 7.5/APAP 325 [[place] 7.5/325 mg*] 1 tab PO Q8HP PRN 07/11/20 Magnesium Oxide 1 tab PO DAILY 07/11/20 Tizanidine HCl [Zanaflex] 4 mg PO DAILYPRN PRN 07/11/20 Benzonatate 200 mg PO Q8HP PRN 10/19/20 Bupropion *Xl* [Wellbutrin XL*] 300 mg PO DAILY 10/19/20 Clopidogrel Bisulfate [Plavix*] 75 mg PO DAILY 10/19/20 Cranberry Fruit Extract [Ellura] 200 mg PO DAILY 10/19/20 Donepezil HCl 10 mg PO BEDTIME 10/19/20 Doxepin HCl 50 mg PO BEDTIME 10/19/20 Duloxetine HCl 60 mg PO BID 10/19/20 Fluticasone/Umeclidin/Vilanter [Trelegy Ellipta 100-62.5-25] 1 each IH DAILY 10/19/20 Indapamide [Lozol] 2.5 mg PO DAILY 10/19/20 Levothyroxine [Synthroid*] 75 mcg PO [id number] 10/19/20 Mupirocin Oint [Bactroban 2% Ointment*] 1 appl TP BID 10/19/20 Potassium Chloride 20 meq PO BID 10/19/20 Quetiapine Fumarate [Seroquel] 200 mg PO BEDTIME 10/19/20 - Past Medical/Surgical History Diabetic: No -: Lymphedema -: heart arrhythmia w/ PVCs -: L breast cancer -: PE -: Meniere's Disease -: Former smoker -: Recurrent UTIs -: Fibromyalgia -: GERD -: Insomnia -: Depression -: Neuropathy -: s/p Left Mastectomy -: PATIENCE TKA -: Cervical fusion -: Lumbar fusion -: Appendectomy -: Hysterectomy - Family History Father -: Diabetes Notes: heart attack. alcoholic - Social History Alcohol use: No CD- Drugs: No Caffeine use: No Review of Systems is unable to be obtained (Due to confusion) Physical Examination - Physical Exam General: In no apparent distress, Confused, Obese HEENT: PERRLA, Mucous membr. moist/pink, EOMI, Sclerae nonicteric Neck: Supple, JVD not distended Respiratory: Clear to auscultation bilaterally, Normal air movement Cardiovascular: No edema, Regular rate/rhythm, Normal S1 S2, No murmurs Capillary refill: <2 Seconds Gastrointestinal: Normal bowel sounds, Soft and benign, Non-distended, No tenderness Musculoskeletal: No swelling, No tenderness Integumentary: No rashes, No erythema, No cyanosis Neurological: Normal speech, Normal strength at 5/5 x4 extr Lymphatics: No axilla or inguinal lymphadenopathy - Studies Laboratory Data (last 24 hrs) 04/18/21 13:25: PT 17.2 H, INR 1.49 04/18/21 13:25: WBC 12.40 H, Hgb 12.4, Hct 38.5, Plt Count 220 04/18/21 13:25: Sodium 136, Potassium 4.6, BUN 19 H, Creatinine 1.17, Glucose 209 H, Magnesium 1.8, Total Bilirubin 0.5, AST 13 L, ALT 12, Alkaline Phosphatase 102 Assessment and Plan - Problems (Diagnosis) (1) Acute metabolic encephalopathy Current Visit: Yes Status: Acute (2) History of recurrent UTI (urinary tract infection) Current Visit: Yes Status: Acute (3) Hypotension Current Visit: Yes Status: Acute (4) COPD (chronic obstructive pulmonary disease) Current Visit: Yes Status: Acute (5) Morbid obesity Current Visit: No Status: Chronic - Plan I suspect patient symptoms are secondary to UTI. UA is pending. Place patient under observation Blood cultures obtained in the ED. Patient is not septic, lactate within normal limits. Start IV Levaquin as we will wait for urinalysis, urine culture and blood cultures. Blood pressure already improved. Continue to monitor. Hydration with IV normal saline as needed. Hypotension could be medication induced versus dehydration. Continue home bronchodilators for COPD. Diet as tolerated. Patient is on Lasix for CHF and metoprolol for A. fib. We will hold metoprolol and Lasix. Continue Eliquis. - Advance Directives Does patient have a Living Will: No Does patient have a Durable POA for Healthcare: Yes
[2021-04-18] MEDS ORDERED: ONDANSETRON 4 MG/2 ML VIAL IV PRN (20:51)
[2021-04-18] MEDS: ALBUTEROL 2.5 MG/3 ML NEB SOL NEB SCH (20:51)
[2021-04-18] MEDS: IPRATROPIUM BROM 0.5MG/2.5ML NEB SCH (20:51)
[2021-04-18] MEDS ORDERED: Levofloxacin500mg IV 500 MG/100 ML BAG IV SCH (20:51)
[2021-04-18] MEDS ORDERED: APIXABAN 5 MG TABLET ONE (21:00)
[2021-04-18] MEDS: APIXABAN 5 MG TABLET PO SCH (21:00)
[2021-04-18] MEDS ORDERED: Levofloxacin500mg IV 500 MG/100 ML BAG IV ONE ×2 (21:01→22:00)
[2021-04-18] MEDS ORDERED: FLECAINIDE 100 MG TAB ONE (22:39)
[2021-04-18] MEDS: FLECAINIDE 100 MG TAB PO SCH (23:26)
[2021-04-19] MEDS ORDERED: ALBUTEROL 2.5 MG/3 ML NEB SOL ONE ×2 (01:23→07:41)
[2021-04-19] MEDS ORDERED: IPRATROPIUM BROM 0.5MG/2.5ML ONE ×2 (01:24→07:41)
[2021-04-19] MEDS: ALBUTEROL 2.5 MG/3 ML NEB SOL NEB SCH ×4 (01:34→20:00)
[2021-04-19] MEDS: IPRATROPIUM BROM 0.5MG/2.5ML NEB SCH ×4 (01:34→20:00)
[2021-04-19] MEDS ORDERED: ACETAMINOPHEN 500 MG TAB ONE (02:31)
[2021-04-19] MEDS: ACETAMINOPHEN 500 MG TAB PO PRN (02:33)
[2021-04-19 04:43] LABS: Absolute Lymphocytes (CBC) 0.9 K/uL (0.7-4.9); Hematocrit 38.7 % (36.0-45.0); Lymphocytes % 8.3 % (15.3-44.8); MPV 8.8 fL (7.6-11.3); RBC Red Blood Cell Count 4.04 M/uL (3.86-4.86)
[2021-04-19 05:13] LABS: Albumin 2.2 g/dL (3.4-5.0); Bilirubin Total 0.4 mg/dL (0.2-1.0); Magnesium 1.8 mg/dL (1.8-2.4); Phosphorus 2.9 mg/dL (2.5-4.9); Potassium 4.5 mmol/L (3.5-5.1); Protein, Total 5.8 g/dL (6.4-8.2); Thyroid Stimulating Hormone 0.276 uIU/mL (0.360-3.740)
[2021-04-19] MEDS: LEVOTHYROXINE SOD 0.075 MG TAB PO SCH (06:30)
[2021-04-19] MEDS: FLECAINIDE 100 MG TAB PO SCH ×2 (09:00→21:19)
[2021-04-19] MEDS: APIXABAN 5 MG TABLET PO SCH ×2 (09:00→21:19)
[2021-04-19] MEDS: MONTELUKAST 10 MG TAB PO SCH (09:00)
[2021-04-19] MEDS ORDERED: APIXABAN 5 MG TABLET ONE ×2 (09:10→13:39)
[2021-04-19 14:12] LABS: Urine Appearance CLOUDY (Clear); Urine Bilirubin NEGATIVE (Negative); Urine Blood 2+ (Negative); Urine Color YELLOW (Yellow); Urine Glucose NEGATIVE (Negative); Urine Protein NEGATIVE (Negative); Urine Urobilinogen 0.2 mg/dL (0.2-1.0)
--- NOTE | 2021-04-19 14:48 | P.PN ---
Subjective Date of Service: 04/19/21 Chief Complaint: Fever and hypotension Patient doing better today and participating in physical therapy. Blood pressure has been stable. She is alert and oriented. She has no new complaint except nonproductive cough. COVID-19 test is negative. Physical Examination - Vital Signs Temperature: 98.4 F Blood Pressure: 120/57 Pulse: 58 Respirations: 14 Pulse Ox (%): 98 - Physical Exam General: Alert, In no apparent distress, Obese HEENT: Mucous membr. moist/pink Neck: JVD not distended Respiratory: Clear to auscultation bilaterally, Normal air movement Cardiovascular: Regular rate/rhythm, Normal S1 S2, Edema (Bilateral lower extremities) Gastrointestinal: Normal bowel sounds, Soft and benign, Non-distended, No tenderness Musculoskeletal: No swelling Neurological: Normal strength at 5/5 x4 extr Assessment And Plan - Current Problems (Diagnosis) (1) Acute metabolic encephalopathy Current Visit: Yes Status: Acute (2) History of recurrent UTI (urinary tract infection) Current Visit: Yes Status: Acute (3) Hypotension Current Visit: Yes Status: Acute (4) COPD (chronic obstructive pulmonary disease) Current Visit: Yes Status: Acute (5) Morbid obesity Current Visit: No Status: Chronic - Plan AMS resolved. UA not done. Urine culture is pending. Blood cultures: No growth to date. Patient is not septic, lactate within normal limits. Continue IV Levaquin. Blood pressure already improved. Continue to monitor. Discontinue IV fluid given history of CHF. Hypotension could be medication induced versus dehydration. Continue home bronchodilators for COPD. Diet as tolerated. Lasix and metoprolol on hold for now Continue Eliquis. Continue PT.
[2021-04-19 15:09] LABS: Urine Bacteria 20-50 /HPF (<20)
[2021-04-19 18:16] VITALS: BMI 36.3
[2021-04-19] MEDS ORDERED: Levofloxacin 250mg IV 250 MG/50 ML BAG IV SCH (22:00)
[2021-04-20] MEDS: ALBUTEROL 2.5 MG/3 ML NEB SOL NEB SCH ×2 (02:00→09:40)
[2021-04-20] MEDS: IPRATROPIUM BROM 0.5MG/2.5ML NEB SCH ×2 (02:00→09:40)
[2021-04-20] MEDS: LEVOTHYROXINE SOD 0.075 MG TAB PO SCH (05:34)
[2021-04-20] MEDS: ACETAMINOPHEN 500 MG TAB PO PRN ×2 (05:40→09:44)
[2021-04-20 06:58] LABS: Hematocrit 35.3 % (36.0-45.0); MPV 8.3 fL (7.6-11.3); RBC Red Blood Cell Count 3.64 M/uL (3.86-4.86)
[2021-04-20 07:13] LABS: Potassium 3.8 mmol/L (3.5-5.1)
[2021-04-20] MEDS: APIXABAN 5 MG TABLET PO SCH (09:42)
[2021-04-20] MEDS: MONTELUKAST 10 MG TAB PO SCH (09:42)
[2021-04-20] MEDS: FLECAINIDE 100 MG TAB PO SCH (09:42)
[2021-04-20 10:09] VITALS: O2SAT 98
--- NOTE | 2021-04-20 11:58 | P.DS ---
Admission Date: 04/18/21 Discharge Date: 04/20/21 Disposition: TRANSFER TO [facility]LTER Discharge Condition: FAIR Reason for Admission: Fever and hypotension - Problems (1) Acute metabolic encephalopathy Current Visit: Yes Status: Acute (2) History of recurrent UTI (urinary tract infection) Current Visit: Yes Status: Acute (3) Hypotension Current Visit: Yes Status: Acute (4) COPD (chronic obstructive pulmonary disease) Current Visit: Yes Status: Acute (5) Morbid obesity Current Visit: No Status: Chronic Brief History of Present Illness: 81-year-old woman with a history of chronic atrial fibrillation, COPD, history of recurrent UTI [facility] due to hypotension. Patient also reported to have had a fever and confused. Patient not able to provide any history due to confusion. Work-up in the emergency department revealed leukocytosis with WBC count of 12,000. BMP unremarkable. EKG revealed sinus bradycardia. Chest x-ray shows no acute disease, UA not done yet. Patient systolic blood pressure ranging from 90s to 100. Blood cultures obtained in the ED. Patient noted to have nonproductive cough. She hospitalized for further evaluation and management. Hospital Course: Admitted to the medical floor and briefly hydrated with IV normal saline for hypotension. Chest x-ray unremarkable, no pneumonia. Patient also started on IV antibiotics given history of recurrent UTI. Urine culture yielded no growth. Patient noted to be on multiple psychotropic medications. Altered mental status could have been related to the psychotropic medications and hypotension. Her blood pressure has been stable since hospitalization, afebrile. Mental status had also improved. Patient is currently alert and oriented. She is currently asymptomatic. Seen by PT for therapy. Patient was bradycardic during the hospital stay. Metoprolol was held and flecainide continued. Lasix was also held during the hospital stay but resumed on discharge. Patient is clinically stable for discharge. Vital Signs/Physical Exam: Temp Pulse Resp BP Pulse Ox 97.2 F 76 18 136/60 96 04/20/21 08:00 04/20/21 08:00 04/20/21 08:00 04/20/21 08:00 04/20/21 08:00 General: Alert, In no apparent distress, Obese HEENT: Mucous membr. moist/pink Neck: JVD not distended Respiratory: Clear to auscultation bilaterally, Normal air movement Cardiovascular: No edema, Normal S1 S2, Irregular heart rate/rhythm Gastrointestinal: Soft and benign, Non-distended Musculoskeletal: No swelling Integumentary: No rashes Neurological: Normal strength at 5/5 x4 extr Laboratory Data at Discharge: WBC 7.40 K/uL (4.3-10.9) D 04/20/21 06:44 Hgb 11.5 g/dL (12.0-15.0) L 04/20/21 06:44 Hct 35.3 % (36.0-45.0) L 04/20/21 06:44 Plt Count 194 K/uL (152-406) 04/20/21 06:44 PT 17.2 SECONDS (9.5-12.5) H 04/18/21 13:25 INR 1.49 04/18/21 13:25 Sodium 140 mmol/L (136-145) 04/20/21 06:44 Potassium 3.8 mmol/L (3.5-5.1) 04/20/21 06:44 BUN 18 mg/dL (7-18) 04/20/21 06:44 Creatinine 0.94 mg/dL (0.55-1.3) 04/20/21 06:44 Glucose 99 mg/dL (74-106) 04/20/21 06:44 Phosphorus 2.9 mg/dL (2.5-4.9) 04/19/21 04:22 Magnesium 1.8 mg/dL (1.8-2.4) 04/19/21 04:22 Total Bilirubin 0.4 mg/dL (0.2-1.0) 04/19/21 04:22 AST 10 U/L (15-37) L 04/19/21 04:22 ALT 12 U/L (12-78) 04/19/21 04:22 Alkaline Phosphatase 94 U/L (45-117) 04/19/21 04:22 Troponin I < 0.02 ng/mL (0.0-0.045) 04/19/21 04:22 Triglycerides 60 mg/dL (<150) 04/19/21 04:22 Cholesterol 144 mg/dL (<200) 04/19/21 04:22 HDL Cholesterol 49 mg/dL (40-60) 04/19/21 04:22 Cholesterol/HDL Ratio 2.94 04/19/21 04:22 Home Medications: Simvastatin 40 mg PO BEDTIME 08/05/11 Memantine HCl 10 mg PO BID 01/11/18 Metoprolol Succinate [Toprol Xl*] 25 mg PO DAILY 12/16/18 Gabapentin 300 mg PO TID 05/25/19 Pantoprazole Sodium [Protonix] 1 tab PO DAILY 02/04/20 Topiramate [Topamax] 200 mg PO BID 02/04/20 Magnesium Oxide 1 tab PO DAILY 07/11/20 Bupropion *Xl* [Wellbutrin XL*] 300 mg PO DAILY 10/19/20 Clopidogrel Bisulfate [Plavix*] 75 mg PO DAILY 10/19/20 Cranberry Fruit Extract [Ellura] 200 mg PO DAILY 10/19/20 Donepezil HCl 10 mg PO BEDTIME 10/19/20 Doxepin HCl 50 mg PO BEDTIME 10/19/20 Duloxetine HCl 60 mg PO BID 10/19/20 Fluticasone/Umeclidin/Vilanter [Trelegy Ellipta 100-62.5-25] 1 each IH PRN 10/19/20 Levothyroxine [Synthroid*] 75 mcg PO [id number] 10/19/20 Mupirocin Oint [Bactroban 2% Ointment*] 1 appl TP BID 10/19/20 Potassium Chloride 20 meq PO BID 10/19/20 Apixaban [Eliquis] 5 mg PO BID tablet 04/20/21 Flecainide [Tambocor*] 50 mg PO BID tab 04/20/21 Furosemide [Lasix] 20 mg PO DAILY #30 tab 04/20/21 Montelukast [Singulair*] 10 mg PO DAILY tab 04/20/21 Quetiapine [Seroquel] 100 mg PO BEDTIME #30 tab 04/20/21 levoFLOXacin [Levaquin] 750 mg PO DAILY #2 tab 04/20/21 New Medications: Furosemide [Lasix] 20 mg PO DAILY #30 tab levoFLOXacin [Levaquin] 750 mg PO DAILY #2 tab Quetiapine [Seroquel] 100 mg PO BEDTIME #30 tab Diet: AHA Activity: Fall precautions Followup: Jerry Torres MD [Primary Care Provider] - 1 Week Time spent managing pt's care (in minutes): 38
[2021-04-20 17:07] VITALS: BP 115/49; TEMP 97.8
== END 2021-04-20 15:55 | DRG 689 ==
LOC: ER 11:37 → ERHOLD 16:24 → OBSVTOIN 16:24 → 2ND 04-19 14:44
PROVIDERS: ADMIT Internal Medicine; ATTEND Internal Medicine
DX: N39.0 Urinary tract infection, site not specified (principal); G93.41 Metabolic encephalopathy; K21.9 Gastro-esophageal reflux disease without esophagitis; J44.9 Chronic obstructive pulmonary disease, unspecified; D72.829 Elevated white blood cell count, unspecified; I50.9 Heart failure, unspecified; I48.91 Unspecified atrial fibrillation; I95.9 Hypotension, unspecified; E66.01 Morbid (severe) obesity due to excess calories; T43.95XA Adverse effect of unspecified psychotropic drug, initial encounter; R00.1 Bradycardia, unspecified; Z68.36 Body mass index [BMI] 36.0-36.9, adult; Z88.1 Allergy status to other antibiotic agents; Z88.0 Allergy status to penicillin; Z88.6 Allergy status to analgesic agent; Z91.018 Allergy to other foods; Z79.02 Long term (current) use of antithrombotics/antiplatelets; Z79.899 Other long term (current) drug therapy; Z79.890 Hormone replacement therapy; Z79.01 Long term (current) use of anticoagulants; Z87.891 Personal history of nicotine dependence; Z90.710 Acquired absence of both cervix and uterus; Z20.822 Contact with and (suspected) exposure to COVID-19
CPT/HCPCS: 36415; 51702; 71045; 80048; 80053; 80061; 80076; 81001; 83605; 83735; 83880; 84100; 84443; 84484; 85025; 85610; 86850; 86900; 86901; 87040; 87086; 87088; 93005; 94640; 94760; 96374; 96375; 97110; 97161; 97530; 99285; J0456; J2930; J7030; J7050; U0003

== ENCOUNTER 2021-06-10 13:55 | Inpatient (IN) | payer OTHER ==
--- OUTSIDE RECORDS SUMMARY | 2021-06-10 14:00 | XMS REPORT | Continuity of Care Document ---
:1940 Author Organization [facility] t Address [address] [place] [address] Care Team Providers Name Role Phone Farhat HOLT Primary Care Physician [id number] Attending Clinician Unavailable CHRYSTAL BARRETT Attending Clinician Unavailable Doctor Unassigned, Name Attending Clinician Unavailable Amina HOLT, L Attending Clinician Chrystal Barrett MD Attending Clinician Aleena Goetz MD Attending Clinician Jeannie Ferreira MD Attending Clinician Linda Diaz MD Attending Clinician Hilton HOLT Attending Clinician [id number] Admitting Clinician Unavailable CHRYSTAL BARRETT Admitting Clinician Unavailable ALEENA GOETZ Admitting Clinician Unavailable Payers Payer Name Policy Type Policy Number Effective Date Expiration Date S ource Problems Condition Condition Condition Status Onset Resolution [...] ity of with body with body 00:00: [place] s mass index mass index 00 Me dical of 50 or of 50 or Branch higher higher Morbid Morbid Disease Active 2015-04 Univers obesity obesity 2-20 ity of with body with body 00:00: [place] s mass index mass index 00 Me dical of of Branch 40.0-49.9 40.0-49.9 CINTHIA CINTHIA Disease Active [facility] (obstructi (obstructi Carol kes - ve sleep ve sleep Medica l apnea) apnea) Center Allergies, Adverse Reactions, Alerts Allergy Allergy Status Severity Reaction(s) Onset Inactive Treating Comm ents Source Name Type Date Date Clinician STRAWBER Allergy Active Low Rash 1-[address] [facility] R[facility] 8-17 [facility] 00:[facility]: Medical 00 Center Strawber Propensi Active Rash 2020-[address] [facility] ry ty to 817 [facility] - adverse 00:00: Medical reaction 00 Center s CLINDAMY Allergy Active High Rash 2020-[address] [facility] [address] JOSE HCL 8-16 [facility] - 00:00: Medical 00 Center PENICILL Allergy Active High Rash 1-[address] [facility] IN 8-16 [facility] - 00:00: Medical 00 Center SULFA Allergy Active High Rash 2020-[address] [facility] (SULFONA 8-16 [facility] - MIDE 00:00: Medical ANTIBIOT 00 Center [facility] Clindamy Propensi Active Rash 2020-[address] jose Hcl ty to 8-16 [facility] - adverse 00:00: Medical reaction 00 Center s Penicill Propensi Active Rash 2020-[address] in ty to 8-16 [facility] - adverse 00:00: Medical reaction 00 Center s Sulfa Propensi Active Rash 1-[address] (Sulfona ty to 8-16 [facility] - mide adverse 00:00: Medical Antibiot reaction 00 Center [facility]) s Clindamy Propensi Active Unknown 2020-0 Metho [...] Hospita reaction 00 l s to drug Acetamin Propensi Active Unknown - 2020-0 Uni vers ophen ty to See comments 6-30 ity of adverse 00:00: [place] reaction 00 Medical s Branch Propoxyp Propensi Active Unknown - 2020-0 Uni vers hene ty to See comments 6-30 ity of N-Acetam adverse 00:00: [place] inophen reaction 00 Medical s Branch Clindamy Propensi Active Rash 2015- Univer s jose Hcl ty to 2-19 ity of adverse 00:00: [place] reaction 00 Medical s Branch Penicill Propensi Active Anaphylaxis 2015- U nivers in ty to 2-19 ity of adverse 00:00: [place] reaction 00 Medical s Branch Sulfa Propensi Active Rash 2015- Univers (Sulfona ty to 2-19 ity of mide adverse 00:00: [place] Antibiot reaction 00 Medica l ics) s Branch Family History Family Member Diagnosis Comments Start Date Stop Date Source Natural father Heart disease [facility] Natural father Hypertension [facility] Natural father Diabetes [facility] Natural mother Asthma [facility] Social History Social Habit Start Date Stop Date Quantity Comments Source Exposure to Not sure [facility] SARS-CoV-2 (event) Medica l Branch History SDOH [facility] - Alcohol Std Drinks Medica l Center History SDOH [facility] - Alcohol Binge Medical Dagoberto ter History SDOH [facility] - Alcohol Comment Medical C enter History of tobacco Smoker Method ist Hospital use Alcohol intake 2021-04-17 2021-04-17 0 /d [facility] 00:00:00 00:00:00 Medical Branch Tobacco use and 2020-12-03 2020-12-[address] [facility] [address] Carol kes - exposure 00:00:00 00:00:00 Medical Center History SDOH 2020-12-03 2020-12-[address] [facility] - Alcohol Frequency 00:00:00 00:00:00 Medical Center Cigarettes smoked 2019-10-18 2019-10-18 [facility] current (pack per 00:00:00 00:00:00 day) - Reported Cigarette 2019-10-18 2019-10-18 [facility] pack-years 00:00:00 00:00:00 Sex Ass[birth year] At [birth year] [facility] [place] 00:00:00 00:00:00 [facility] Branch Smoking Status Start Date Stop Date Source Never smoker [facility] Former smoker 2019-10-18 00:00:00 2019-10-18 00:00:00 [facility] Medications Ordered Filled Start Stop Current Ordering Indication Dosage Frequency Signature Comments Components Source Medication Medication Date Date Medication? Clinician (SIG) Name Name buPROPion Yes Univers XL 150 mg 8-26 ity of 24 hr 00:00: [place] tablet 00 [facility] Branch buPROPion Yes Univers XL 150 mg 8-26 ity of 24 hr 00:00: [place] tablet 00 [facility] Branch buPROPion Yes Univers XL 150 mg 8-26 ity of 24 hr 00:00: [place] tablet 00 [facility] Branch furosemide 2021- No 20mg QD Take [address] (LASIX) 20 8- 08-23 tablet (20 Carol kes - MG tablet 00:00: 23:59 mg total) Me dical 00 :00 by mouth Center daily. zolpidem Yes 10mg Take [address] [facility] (AMBIEN) 10 -22 by mouth Luke s - mg tablet [...] 24 times Center daily. gabapentin Yes 300mg Q.[id number] Take [address] (NEURONTIN) 8-22 [id number] mg by L ukes - 300 MG [...] QD Inhale [address] -umeclidin- 8- Inhalation Carol kes - vilanter 12:43: by mouth Medic al (Trelegy 24 via Center Ellipta) inhaler 100-62.5-25 daily . mcg DsDv clopidogreL 2020- No 75mg QD Take [address] (PLAVIX) 75 12-09 by mouth Brain es - mg tablet 10:48: 00:00 daily. Medic al 43 :00 [place] ELIQUIS 5 Yes 5mg Take 5 mg Uni vers mg tablet 8-22 by mouth 2 ity of 00:00: (two) [place] 00 times Medical daily. Branch benzonatate Yes [...] CAPSULE ity of capsule 00:00: (100 MG 00 TOTAL) BY Medical MOUTH 3 Branch [...] Q.5D Take [address] (ELIQUIS) 5 12-09- tablet (5 Carol kes - mg Tab 00:00: 23:59 mg total) Medic al tablet 00 :00 by mouth 2 Center (two) times daily. cyanocobala No 1000ug QD Take [address] min, 12-09 tablet [facility] - vitamin 00:00: 23:59 (1,000 mcg Med ical B-12, 1000 00 :00 total) by Cent er MCG tablet mouth daily. flecainide No 50mg Take [address] [facility] (TAMBOCOR) [...] 0.25 mg 8-02 ity of tablet 00:00: [place] 00 Medical Branch ALPRAZolam Yes Univers 0.25 mg 8-02 ity of tablet 00:00: [place] 00 [facility] Branch ALPRAZolam Yes Univers 0.25 mg 8-02 ity of tablet 00:00: [place] 00 [facility] Branch Cholecalcif 2015-04 Yes 1{tbl} Take 1 Un dhara ronald, 2-28 tablet by ity of Vitamin D3, 11:30: mouth [place] (VITAMIN 04 daily. Medical D3) 5,000 Branch unit tablet QUEtiapine 2015-04 Yes 50mg Take 50 mg U nivers (SEROQUEL) 2-28 by mouth ity o f 50 mg 11:30: daily. [place] tablet 04 Medical Branch simvastatin 2015-04 Yes 40mg Take 40 mg Univers (ZOCOR) 40 2-28 by mouth ity o f mg tablet 11:30: at [place] 04 bedtime. Medical Branch topiramate 2015-04 Yes [...] FIDOBAC/ZAHIRA 2-28 tablet by ity of B [place] CON 11:30: mouth 2 [place] (ULTRA 04 [...] FIDOBAC/ZAHIRA 2-28 tablet by ity of B AL CON 11:30: mouth 2 [place] (ULTRA 04 [...] FIDOBAC/ZAHIRA 2-28 tablet by ity of B AL CON 11:30: mouth 2 [place] (ULTRA 04 [...] daily. Medica l 500 mg Branch tablet Immunizations Ordered Filled Immunization Date Status Comments [facility] Immunization Name Name SARS-COV-2 COVID-19 2020-07-07 Completed Unive rsity of PFIZER VACCINE 00:00:00 [facility] SARS-COV-2 COVID-19 2020-07-07 Completed Unive rsity of PFIZER VACCINE 00:00:00 [facility] SARS-COV-2 COVID-19 2020-07-07 Completed Unive rsity of PFIZER VACCINE 00:00:00 [facility] SARS-COV-2 COVID-19 2020-06-16 Completed Unive rsity of PFIZER VACCINE 00:00:00 [facility] SARS-COV-2 COVID-19 2020-06-16 Completed Unive rsity of PFIZER VACCINE 00:00:00 [facility] SARS-COV-2 COVID-19 2020-06-16 Completed Unive rsity of PFIZER VACCINE 00:00:00 [facility] Vital Signs Vital Name Observation Time Observation Value Comments Source WEIGHT 2020-12-09 06:47:00 97.478 kg WEIGHT 2020-12-03 23:00:00 98.839 kg HEIGHT 2020-12-03 22:25:00 160 cm WEIGHT 2020-12-03 22:25:00 100.562 kg WEIGHT 2020-12-09 06:47:00 97.478 kg WEIGHT 2020-12-03 23:00:00 98.839 kg HEIGHT 2020-12-03 22:25:00 160 cm WEIGHT 2020-12-03 22:25:00 100.562 kg Heart rate 2020-12-09 08:01:00 56 /min [facility] Respiratory rate 2020-12-09 08:01:00 16 /min [facility] Oxygen saturation in 2020-12-09 08:01:00 93 /min [facility] - Arterial blood by Medical Ce nter Pulse oximetry Systolic blood 2020-12-09 07:00:00 126 mm[Hg] [facility] Diastolic blood 2020-12-09 07:00:00 60 mm[Hg] [facility] Body temperature 2020-12-09 07:00:00 36.61 Genia [facility] Body weight 2020-12-09 06:47:00 97.478 kg [facility] BMI 2020-12-09 06:47:00 38.07 kg/m2 [facility] Body height 2020-12-03 22:25:00 160 cm [facility] Procedures Procedure Date / Time Performing Clinician Source Performed PHYSICIAN CERTIFICATION 2021-05-22 06:01:00 Doctor Unassigned, U [facility] STATEMENT [place] [facility] HIGH SENSITIVITY TROPONIN 2020-12-08 16:40:[address] [facility] ECG 12-LEAD 2020-12-08 15:59:02 Unknown, Hl7 Doctor [facility] ECG 12-LEAD 2020-12-08 15:59:02 Unknown, Hl7 Doctor [facility] XR CHEST 1 VIEW PORTABLE / 2020-12-08 07:54:00 Kvng Crane [facility] CBC W/PLT COUNT & AUTO 2020-12-08 04:39:00 Downs AundreaRUBEN S t [facility] - DIFFERENTIAL [facility] BASIC METABOLIC PANEL (7) 2020-12-08 04:39:00 Downsjuan carlos Dewittsar, CH I [facility] CBC W/PLT COUNT & AUTO 2020-12-08 04:39:00 Downsjuan carlos Johnavsar, RUBEN S t [facility] - DIFFERENTIAL [facility] MAGNESIUM 2020-12-08 04:39:[address] [facility] B-TYPE NATRIURETIC FACTOR 2020-12-07 03:34:00 Yoko Crane [facility] (BNP) [facility] XR CHEST 1 VIEW PORTABLE / 2020-12-06 13:03:00 Perfecto Diaz [facility] BASIC METABOLIC PANEL (7) 2020-12-06 11:41:00 Perfecto Diaz CH I [facility] MAGNESIUM 2020-12-06 11:41:00 Perfecto Diaz [facility] B-TYPE NATRIURETIC FACTOR 2020-12-06 11:41:00 Perfecto Diaz CH I [facility] (BNP) [facility] ECG 12-LEAD 2020-12-05 10:53:[address] [facility] TRANSESOPHAGEAL ECHO 2020-12-05 09:39:19 Josh Toribio [facility] CBC W/PLT COUNT & AUTO 2020-12-05 05:17:00 Андрей Goetz [facility] DIFFERENTIAL [facility] BASIC METABOLIC PANEL (7) 2020-12-05 05:17:00 Андрей Goetz CH I [facility] HEPATIC FUNCTION PANEL 2020-12-05 05:17:00 Андрей Goetz [facility] CBC W/PLT COUNT & AUTO 2020-12-05 05:17:00 BishnuАндрей barth [facility] DIFFERENTIAL [facility] CARDIOVERSION 2020-12-05 00:31:19 Josh Toribio [facility] HIGH SENSITIVITY TROPONIN 2020-12-04 18:35:00 Bishnu, [facility] 2D ECHO W/ DOPPLER 2020-12-04 14:07:13 Clint Malave [facility] (CW/PW/COLOR) [facility] CT CHEST FOR PULMONARY 2020-12-04 05:36:00 Bishnu, [facility] EMBOLUS [facility] XR CHEST 1 VIEW PORTABLE / 2020-12-04 04:08:00 Андрей Goetz [facility] - BEDSIDE [facility] SARS-COV2/RT-PCR ([facility] & 2020-12-04 03:48:00 Bishnu, [facility] - REF LABS) [facility] CBC W/PLT COUNT & AUTO 2020-12-04 03:41:00 Bishnu, [facility] BASIC METABOLIC PANEL (7) 2020-12-04 03:41:00 Bishnu, [facility] HEPATIC FUNCTION PANEL 2020-12-04 03:41:00 Bishnu, [facility] CBC W/PLT COUNT & AUTO 2020-12-04 03:41:00 Bishnu [facility] HIGH SENSITIVITY TROPONIN 2020-12-04 03:41:00 Bishnu, [facility] B-TYPE NATRIURETIC FACTOR 2020-12-04 03:41:00 Bishnu [facility] (BNP) [facility] CBC W/PLT COUNT & AUTO 2020-12-03 23:21:00 Bishnu, [facility] DIFFERENTIAL [facility] BASIC METABOLIC PANEL (7) 2020-12-03 23:21:00 Bishnu, [facility] HEPATIC FUNCTION PANEL 2020-12-03 23:21:00 Bishnu [facility] MAGNESIUM 2020-12-03 23:21:00 Bishnu [facility] PHOSPHORUS 2020-12-03 23:21:00 Bishnu [facility] PROTHROMBIN TIME/INR 2020-12-03 23:21:00 Bishnu [facility] CBC W/PLT COUNT & AUTO 2020-12-03 23:21:00 Bishnu, [facility] TSH/FREE T4 IF INDICATED 2020-12-03 23:21:00 Bishnu [facility] HIGH SENSITIVITY TROPONIN 2020-12-03 23:21:00 Bishnu [facility] D-DIMER 2020-12-03 23:21:00 Bishnu [facility] VITAMIN B12 AND FOLATE 2020-12-03 23:21:00 Bishnu [facility] ECG 12-LEAD 2020-12-03 23:12:15 [facility] 12-[facility]AD 2020-12-03 23:07:40 Unknown, Hl7 Doctor [facility] REPORT OF PROCEDURE - 2020-12-03 00:00:00 Provider, Andrew [facility] - ENDOSCOPY SCAN Scanning [facility] Plan of Care Planned Activity Planned Date [...] 00:00:00 (1 of 1 - Medical Center LODC92_Ogxumir PCV13) [code = PNEUMOCOCCAL 65+ YRS (1 of 1 - LMAT60_Lituoyj PCV13)] Future Scheduled 1991 SHINGLES VACCINES (1 [...] [facility] Test (procedure) [code = 724555958] Future Scheduled SHINGLES VACCINES (#1) M ethodist [...] Date/Time Type Type Clinicians Facility Department ID 2021-05-16 Outpatient [id number] ENCPL OT ENCPL 13:02:17 1006 2021-05-16 Outpatient 3 [id number] ENCPL REF ENCPL 12:59:17 0929 2021-05-15 Outpatient STLMLC STLMLC [id number] 13:11:24 [id number] Cornelius [facility]al [facility] Clinics 2020-12-03 Inpatient ER NENA [facility] Cardiology [id number] [facility] 22:07:00 KATIE 2021-05-22 2021-05-22 Orders Doctor BROWN [id number] Univers 00:00:00 00:00:00 Only Unassigned, JANE 350.1.13.10 ity of [place] [facility] 4.2.7.2.686 Simba as [id number] [address] 2021-05-14 2021-05-14 [facility] [id number] Univers 00:00:00 00:00:00 Stefan Oneal [facility] 350.1.13.10 it y of [place] 4.2.7.2.686 Simba as SABRA?BLEA [phone] Tn cong PEREZ [address] [place] [address] MEDICAL OFFICE BUILDING 2021-05-09 2021-05-09 [facility] [id number] Univers 00:00:00 00:00:00 Stefan Oneal [facility] 350.1.13.10 it y of [place] 4.2.7.2.686 Simba as SABRA?BLEA [id number] Tn cong [address] OFFICE [facility] 2020-12-03 2020-12-09 [facility] Katie Reynoso [facility] [id number] [facility] 22:07:00 12:43:00 Encounter Андрей Goetz, Yakristie Dennis [facility] Perfecto [facility] 2020-12-08 2020-12-08 Orders [facility] [id number] 00:00:00 00:00:00 Only [facility] 2020-12-05 2020-12-05 Outpatient [facility] [id number] [facility] 00:00:00 23:59:00 Saumya 2020-12-04 2020-12-04 Travel [facility] [id number] [facility] 00:[facility]:00 00:00:00 [facility] 2020-08-27 2020-08-27 Hospital Canela, 1.2.840.1 [id number] Methodi 08:36:31 23:59:00 Encounter Renan [id number] 3.430.2.7 Hospit a .3.457587 l .8 2020-07-03 2020-07-03 Office Canela, 1.2.840.1 [id number] Methodi 13:03:28 13:29:49 Visit Renan [id number] 3.430.2.7 Hospit a .3.176753 l .8 2020-07-03 2020-07-03 Travel 1.2.840.1 1.2.947.198 [id number] Methodi 00:00:00 00:00:[address] 3.430.2.7 0.2.7.3.698 Ho spita .3.227780 084.8 l .8 Results Test Description Test Time Test Comments Results Result Comments Source High Sensitivity Troponin I ([facility] Only) 2020-12-08 1 7:20:00 Test Item Value Reference Range Interpretation Comme nts Troponin I HS (test 6 pg/ml See_Comment [Aut omated message] The code = 96750-1) system which generated this result tra nsmitted reference range : <=17. The reference r guillaume was not used to int erpret this result as normal/abnormal . GERALD (test code = GERALD) Corporate Training Manager ID - DBThe TECHNICAL AID STAT High Sensitivity Troponin-I results should be used in conjunction with other diagnostic information such as ECG, clinical observations and information, and patient symptoms to aid in the diagnosis of [place]. Lab Interpretation (test Normal code = 85682-8) [facility] TROPONIN [id number] 17:20:00 Test Item Value Reference Range Interpretation Comments HIGH SENSITIVITY 6 pg/ml See_Comment [Automated message] TROPONIN I (test code = The system which 8808589) generated this result transmitted ref erence range: <=17. Th e reference range was not used to interpr et this result as normal/abnormal . Corporate Training Manager ID - DBThe TECHNICAL AID STAT High Sensitivity Troponin-I results should be used in conjunctionwith other diagnostic information such as ECG, clinical observations and information, and patient symptoms to aid in the diagnosis of [place].RAD, CHEST, 1 VIEW, NON [id number] 10:23:00Reason for exam:->pulm edemaShould this be performed at the bedside?->Yes [facility] 1940 Sex: FFINAL REPORT HISTORY: Pulmonary edema COMPARISON: 12/06/2020 FIND INGS: Mild interstitial pulmonary edema. No pleural effusions or pneumothorax. The heart shadow is borderline enlarged. The thoracic aorta is mildly tortuous. There are postoperative changes in the cervical spine. A right shoulder arthroplasty is partially imaged. Signed: Kenia Ren MDReport Verified Date/Time: 12/08/2020 10:23:36 Reading Location: [address] Transitional Reading Room Basic Metabolic [id number] 05:46:00 Test Item Value Reference Range Interpretation Comments Sodium (test code = 140 meq/L 414-843 7910-2) Potassium (test code = 3.4 meq/L 3.5-5.1 L 2823-3) Chloride (test code = 108 meq/L 98-107 H 2075-0) CO2 (test code = 25 meq/L -29 2027-9) BUN (test code = 11 mg/dL - 3094-0) Creatinine (test code 1.12 mg/dL 0.57-1.25 = 2160-0) Glucose (test code = 113 mg/dL 70-105 H 2345-7) Calcium (test code = 8.9 mg/dL 8.4-10.2 38380-1) EGFR (test code = 47 mL/min/1.73 [place] [address]-7) NOT ACCURATE CREATININE CLEARANCE IN PREDICTING GLOMERULAR FILTRATION RATE . ESTIMATED GFR I S NOT APPLICABLE FOR DIALYSIS PATIENTS. GERALD (test code = GERALD) Corporate Training Manager ID - EMIL M Lab Interpretation Abnormal (test code = 34713-0) [facility] Center[facility]esium2021-08-21 05:46:00 Test Item Value Reference Range Interpretation Comments Magnesium (test code = 1.7 mg/dL 1.6-2.6 77553-5) GERALD (test code = GERALD) Corporate Training Manager ID Paul Field Lab Interpretation (test Normal code = 93537-7) [facility] Center[facility]IC METABOLIC [id number] 05:46:00 Test Item Value Reference Range Interpretation [...] S NOT APPLICABLE FOR DIALYSIS PATIEN TS. Corporate Training Manager ID - EMIL [id number] 05:46:00 Test Item Value Reference Range Interpretation Comments MAGNESIUM (BEAKER) (test code = 1.7 mg/dL 1.6-2.6 627) Corporate Training Manager ID - EMIL MCBC with platelet count + automated [id number] 05:04:00 Test Item Value Reference Range Interpretation Comments WBC (test code = 6690-2) 5.7 See_Comment [A utomated message] The system [employer] generated this result transmitted ref erence range: 3.5 - 10 .5 K/L. The refe rence range was not u sed to interpret this result as normal/abnor mal. RBC (test code = 789-8) 3.85 See_Comment L [Au tomated message] The system [employer] generated this result transmitted ref erence range: 3.93 - 5 .22 M/L. The refe rence range was not u sed to interpret this result as normal/abnor mal. MCHC (test code = 786-4) 30.9 See_Comment L [A utomated message] The system [employer] generated this result transmitted ref erence range: [...] See_Comment [Aut omated message] 777-3) The system [employer] generated this result transmitted ref erence range: 150 - 45 0 K/CU MM. The referen ce range was not u sed to interpret this result as normal/abnor mal. MPV (test code = 9.5 fL 9.4-12.3 74753-7) nRBC (test code = 413) 0 See_Comment [Aut omated message] The system [employer] generated this result transmitted ref erence range: [...] See_Comment [Aut omated message] 670) The system [employer] generated this result transmitted ref erence range: 1.56 - 6 .13 K/L. The refe rence range was not u sed to interpret this result as normal/abnor mal. # Lymphs (test code = 1.83 See_Comment [Auto mated message] 414) The system [employer] generated this result transmitted ref erence range: 1.18 - 3 .74 K/L. The refe rence range was not u sed to interpret this result as normal/abnor mal. # Monos (test code = 0.60 See_Comment H [Autom ated message] 415) The system [employer] generated this result transmitted ref erence range: 0.24 - 0 .36 K/L. The refe rence range was not u sed to interpret this result as normal/abnor mal. # Eos (test code = 416) 0.26 See_Comment [Au tomated message] The system [employer] generated this result transmitted ref erence range: 0.04 - 0 .36 K/L. The refe rence range was not u sed to interpret this result as normal/abnor mal. # Baso (test code = 417) 0.05 See_Comment [A utomated message] The system [employer] generated this result transmitted ref erence range: 0.01 - 0 .08 K/L. The refe rence range was not u sed to interpret this result as normal/abnor mal. Immature 1 % 0-1 Granulocytes-Relative (test code = 2801) Lab Interpretation (test Abnormal code = 86735-1) [facility] W/PLT COUNT & AUTO [id number] 05:04:00 Test Item Value Reference Range Interpretation [...] Range Interpretation Comments BNP (test code = 96562-8) 97 pg/mL 0-100 GERALD (test code = GERALD) Corporate Training Manager ID - PIAYA L Lab Interpretation (test Normal code = 39974-5) [facility] Center[facility] NATRIURETIC FACTOR (BNP)2020-12-07 04:52:00 Test Item Value Reference Range Interpretation Comments B-TYPE NATRIURETIC PEPTIDE (BEAKER) 97 pg/mL 0-100 (test code = 700) Corporate Training Manager ID - PIAYA LRAD, CHEST, 1 VIEW, NON [id number] 14:01:00Reason for exam:->dyspneaShould this be performed at the bedside?->Yes [facility] 1940 Sex: FFINAL [...] MDReport Verified Date/Time: 12/06/2020 14:01:32 Reading Location: [facility] Radiology Reading Room Electronicallysigned by: LACY DONALD M.D. on 12/06/2020 02:01 PMBASI METABOLIC [id number] 12:22:00 Test Item Value Reference Range Interpretation [...] S NOT APPLICABLE FOR DIALYSIS PATIEN TS. Corporate Training Manager ID - [id number] 12:22:00 Test Item Value Reference Range Interpretation Comments MAGNESIUM (BEAKER) (test code = 1.7 mg/dL 1.6-2.6 627) Corporate Training Manager ID - EMERSONB-TYPE NATRIURETIC FACTOR (BNP)2020-12-06 12:13:00 Test Item Value Reference Range Interpretation Comments B-TYPE NATRIURETIC PEPTIDE (BEAKER) 88 pg/mL 0-100 (test code = 700) Corporate Training Manager ID - EMERSONTransesophageal [id number] 21:25:57Ejection FractionSLEH ECHO HEARTLAB MKCKESSON CPACSSan [facility]on [facility] Medical CenterHepatic function [id number] 06:35:00 Test Item Value Reference Range Interpretation Comments Protein, Total (test 5.4 See_Comment L [Autom ated code = 2885-2) message] The system which generated this result transmit fior reference range : 6.0 - 8.3 gm/dL . The reference range was not u sed to interpret th is result as normal/abnormal . Albumin (test code = 2.7 g/dL 3.5-5.0 L 82428-4) Total Bilirubin (test 0.1 mg/dL 0.2-1.2 L code = 1975-2) Bilirubin, Direct 0.1 mg/dL 0.1-0.5 (test code = 1968-7) Alkaline Phosphatase 80 U/L 40-150 (test code = 6768-6) AST (test code = 15 U/L 5-34 1920-8) ALT (test code = 8 U/L 6-55 1742-6) GERALD (test code = GERALD) Corporate Training Manager ID - RUDOLPHSUNDAR L Lab Interpretation Abnormal (test code = 99316-1) [facility] CenterBASIC METABOLIC [id number] 06:35:00 Test Item Value Reference Range Interpretation [...] S NOT APPLICABLE FOR DIALYSIS PATIEN TS. Corporate Training Manager ID - PIAYA LHEPATIC FUNCTION [id number] 06:35:00 Test Item Value Reference Range Interpretation [...] (test code = 8 U/L 6-55 347) Corporate Training Manager ID - PIAYA LCBC W/PLT COUNT & AUTO [id number] 05:44:00 Test Item Value Reference Range Interpretation [...] Comments SARS-COV2/RT-PCR (test Negative Negative code = 90500-2) GERALD (test code = GERALD) Negative result [...] Healthcare Providers:https://www.ric carrillo/bebo/RT SARS-CoV-2 HCP Fact Sheet 51-623008.pdf Fact Sheet for Healthcare Patients:https://www.abdullahi ramirez.campos/bebo/RT SARS-CoV-2 Patient Fact Sheet EN 51-371064F8.pdf Lab Interpretation Normal (test code = 71089-8) [facility] ([facility])2020-12-04 23:22:00 Test Item Value Reference Range Interpretation Comments SARS-COV2/RT-PCR (test code = Negative Negative 9360474) Negative result for this test determines that [...] the Campos SARS-CoV-2 assay.Fact Sheet for Healthcare Providers:https://www.Screenmailer.campos/bebo/RT SARS-CoV-2 HCP Fact Sheet 51- 143985.pdfFact Sheet for Healthcare Patients:https://www.molecular.campos/bebo/RT SARS-CoV-2 Patient Fact Sheet EN 51-043728F9.pdfHIGH SENSITIVITY TROPONIN I 2020-12-04 19:21:00 Test Item Value Reference Range Interpretation Comments HIGH SENSITIVITY 8 pg/ml See_Comment [Automated message] TROPONIN I (test code = The system which 7332608) generated this result transmitted ref erence range: <=17. Th e reference range was not used to interpr et this result as normal/abnormal . Corporate Training Manager MARÍA - geri Gifforde TECHNICAL AID STAT High Sensitivity Troponin-I results should be used in conjunction with other diagnostic information such as ECG, clinical observations and information, and patient symptoms to aid in the diagnosis of WA.2D Echo W/Doppler(CW/PW/Color)2020-12-04 17:56:11Ejection FractionSLEH ECHO HEARTLAB MKCKESSON CPACSCHI [facility] HospitalCT, CHEST WITH IV CONTRAST- PE TEST [id number] 06:05:00Unlisted Reason for Exam - Click Yes and Enter Reason Below->No [facility] 1940 Sex: FFINAL [...] PET/CT, or tissue sampling. Signed: Cosme Alvarez MDRort Verified Date/Time: 12/04/2020 06:05:30 HEPATIC FUNCTION [id number] 06:00:00 Test Item Value Reference Range Interpretation [...] (test code = 7 U/L 6-55 347) Corporate Training Manager MARÍA - EMIL MOperator ID - RUDOLPHAYA LBASIC METABOLIC [id number] 05:13:00 Test Item Value Reference Range Interpretation [...] S NOT APPLICABLE FOR DIALYSIS PATIEN TS. Corporate Training Manager MARÍA - EMIL MVitamin B12 and [id number] 04:44:00 Test Item Value Reference Range Interpretation Comments Vitamin B12 (test 272 pg/mL 213-816 code = 2132-9) Folate (test code = 7.70 ng/mL See_Comment [Automa fior 2284-8) message] The system which generated this result transmit fior reference range : >=7.00. The reference range was not used to interpret this result as normal/abnormal . GERALD (test code = GERALD) Corporate Training Manager ID - EMIL Field Lab Interpretation Normal (test code = 24485-6) [facility] CenterVITAMIN B12 AND [id number] 04:44:00 Test Item Value Reference Range Interpretation Comments VITAMIN B12 (BEAKER) 272 pg/mL 213-816 (test code = 774) FOLATE (BEAKER) 7.70 ng/mL See_Comment [Automated message] (test code = 362) The system which generated this result transmitted ref erence range: >=7.00. The reference range was not used to interpr et this result as normal/abnormal . Corporate Training Manager ID - EMIL MRAD, CHEST, 1 VIEW, NON [id number] 04:41:00Reason for exam:->afibShould this be performed at the bedside?->Yes [facility] 1940 Sex: FFINAL REPORT EXAM/TECHNIQUE: Single view frontal radiograph of the chest. INDICATION: Atrial fibrillation. COMPARISON: None. FINDINGS: Devices/Objects: None. Lungs: No focal consolidation. No pleural effusion. No pneumothorax. Heart/Mediastinum: No cardiomegaly. Mild interstitial thickening. Osseous: No acute osseous process. No suspicious osseous lesion. Upper abdomen: Unremarkable. Impression: Mild interstitial thickening may represent interstitial pulmonary edema. Signed: Cosme Alvarez MDRthe hospital of central [place] Verified Date/Time: 12/04/2020 04:41:03 HIGH SENSITIVITY TROPONIN [id number] 04:36:00 Test Item Value Reference Range Interpretation Comments HIGH SENSITIVITY 8 pg/ml See_Comment [Automated message] TROPONIN I (test code = The system which 8137520) generated this result transmitted ref erence range: <=17. Th e reference range was not used to interpr et this result as normal/abnormal . Corporate Training Manager ID - EMIL MThe TECHNICAL AID STAT High Sensitivity Troponin-I results should be used in conjunction with other diagnostic information such as ECG, clinical observations and information, and patient symptoms to aid in the diagnosis of WA.B-TYPE NATRIURETIC FACTOR (BNP)2020-12-04 04:27:00 Test Item Value Reference Range Interpretation Comments B-TYPE NATRIURETIC PEPTIDE (BEAKER) 144 pg/mL 0-100 H (test code = 700) Corporate Training Manager ID - EMIL MCBC W/PLT COUNT & AUTO [id number] 04:01:00 Test Item Value Reference Range Interpretation [...] (test code = 2801) TSH/Free T4 If [id number] 00:19:00 Test Item Value Reference Range Interpretation Comments TSH (test code = 1.723 See_Comment [Automated 55479-8) message] The system which generated this result transmit fior reference range : 0.350 - 4.940 uIU/mL. The reference range was not used to interpret this result as normal/abnormal . GERALD (test code = GERALD) Corporate Training Manager ID - JENNY L Lab Interpretation Normal (test code = 89825-3) [facility] CenterTSH/FREE T4 IF [id number] 00:19:00 Test Item Value Reference Range Interpretation Comments THYROID STIMULATING HORMONE 1.723 uIU/mL 0.350-4.940 (BEAKER) (test code = 772) Corporate Training Manager ID - JENNY LHIGH SENSITIVITY TROPONIN [id number] 00:02:00 Test Item Value Reference Range Interpretation Comments HIGH SENSITIVITY 7 pg/ml See_Comment [Automated message] TROPONIN I (test code = The system which 2887616) generated this result transmitted ref erence range: <=17. Th e reference range was not used to interpr et this result as normal/abnormal . Corporate Training Manager ID - SULEIMANhe TECHNICAL AID STAT High Sensitivity Troponin-I results should be used in conjunctionwith other diagnostic information such as ECG, clinical observations and information, and patient symptoms to aid in the diagnosis of WA.[id number] 23:58:00 Test Item Value Reference Range Interpretation Comments Phosphorus (test code = 3.3 mg/dL 2.3-4.7 2777-1) GERALD (test code = GERALD) Corporate Training Manager ID - DB Lab Interpretation (test Normal code = 11656-9) [facility] METABOLIC [id number] 23:58:00 Test Item Value Reference Range Interpretation [...] S NOT APPLICABLE FOR DIALYSIS PATIEN TS. Corporate Training Manager ID - [id number] 23:58:00 Test Item Value Reference Range Interpretation Comments MAGNESIUM (BEAKER) (test code = 1.7 mg/dL 1.6-2.6 627) Corporate Training Manager ID - [id number] 23:58:00 Test Item Value Reference Range Interpretation Comments PHOSPHORUS (BEAKER) (test code = 3.3 mg/dL 2.3-4.7 604) Corporate Training Manager ID - DBHEPATIC FUNCTION [id number] 23:58:00 Test Item Value Reference Range Interpretation [...] (test code = 9 U/L 6-55 347) Corporate Training Manager ID - [id number] 23:42:00 Test Item Value Reference Range Interpretation Comments D-Dimer, Quant (test 1.26 See_Comment H [Autom ated code = 77889-0) message] The system which generated this result [...] range. Lab Interpretation Abnormal (test code = 47434-1) [facility] CenterD-[id number] 23:42:00 Test Item Value Reference Range Interpretation [...] of thrombosis is within 95-100% range. Prothrombin time/[id number] 23:39:00 Test Item Value Reference Interpretation Comments [...] valves. Lab Interpretation Abnormal (test code = 00020-9) [facility] CenterPROTHROMBIN TIME/[id number] 23:39:00 Test Item Value Reference Range Interpretation [...] % 0-1 PERCENT (BEAKER) (test code = 6370)
[2021-06-10] MEDS ORDERED: ACETAMINOPHEN 500 MG TAB ONE ×2 (14:38→15:25)
[2021-06-10 14:39] LABS: Absolute Lymphocytes (CBC) 0.9 K/uL (0.7-4.9); Hematocrit 41.5 % (36.0-45.0); MPV 7.9 fL (7.6-11.3); RBC Red Blood Cell Count 4.41 M/uL (3.86-4.86)
[2021-06-10 14:45] LABS: Protime INR 1.32
[2021-06-10 14:57] LABS: ALT/SGPT 21 U/L (12-78); AST/SGOT 15 U/L (15-37); Albumin 2.7 g/dL (3.4-5.0); BUN Blood Urea Nitrogen 12 mg/dL (7-18); Bicarbonate 24 mmol/L (21-32); Bilirubin Direct < 0.1 mg/dL (0-0.2); Glucose Level 143 mg/dL (74-106); Magnesium 1.8 mg/dL (1.8-2.4); Potassium 4.4 mmol/L (3.5-5.1); Sodium Level 138 mmol/L (136-145)
[2021-06-10 15:02] LABS: Alkaline Phosphatase 108 U/L (45-117); Bilirubin Total 0.4 mg/dL (0.2-1.0); NT PRO-BNP 687 pg/mL (<450); Protein, Total 6.7 g/dL (6.4-8.2)
[2021-06-10 15:08] LABS: Urine Blood Trace-lysed (Negative); Urine Glucose Negative (Negative); Urine Protein Negative (Negative); Urine Specific Gravity 1.025 (1.005-1.030); Urine pH 5.5 (5.0-7.0)
--- NOTE | 2021-06-10 15:20 | RAD REPORT ---
EXAM DESCRIPTION: Ino Single View06/10/2021 3:03 pm CLINICAL HISTORY: Cough COMPARISON: March 2021 FINDINGS: Upper lobe vessels are prominent indicative of pulmonary venous hypertension The lungs appear clear of acute infiltrate. The heart is mildly to moderately enlarged
[2021-06-10] MEDS ORDERED: Levofloxacin 750mg IV 750 MG/150 ML BAG IV ONE (15:26)
[2021-06-10 15:27] LABS: Urine Bacteria <20 /HPF (<20); Urine RBC <5 /HPF (NONE SEEN)
--- NOTE | 2021-06-10 16:59 | RAD REPORT ---
EXAM DESCRIPTION: CT - Head Brain Wo Cont - 06/10/2021 4:48 pm CLINICAL HISTORY: Alteration of awareness/confusion COMPARISON: April 2021 TECHNIQUE: Computed axial tomography of the head was obtained. IV contrast was not requested. All CT scans are performed using dose optimization technique as appropriate and may include automated exposure control or mA/KV adjustment according to patient size. FINDINGS: An intracranial bleed is not seen . The ventricles are normal in caliber. No extra-axial fluid collection is noted. . Fluid within the sinuses/ mastoids is not seen. IMPRESSION: No acute intracranial abnormality is seen. If patient's symptoms persist MRI of the bra in would be recommended.
--- NOTE | 2021-06-10 17:11 | RAD REPORT ---
EXAM DESCRIPTION: CT - Chest Abdomen Pelvis W Cont - 06/10/2021 4:48 pm CLINICAL HISTORY: Chest and abdominal pain/fever COMPARISON: CT abdomen 2019 and 2017 TECHNIQUE: Computed axial tomography of the chest, abdomen and pelvis was obtained. 100 cc Isovue-30 0 was administered intravenously. Oral contrast was not requested. This limits evaluation of bowel. All CT scans are performed using dose optimization technique as appropriate and may include automated exposure control or mA/KV adjustment according to patient size. FINDINGS: Mild bilateral patchy pulmonary alveolar opacities. Small calcified mediastinal lymph node. Otherwise no mediastinal/hilar lymphadenopathy No pericardial/pleural effusion Liver, pancreas, right adrenal and left kidney are unremarkable A 25 millimeter splenic cyst. A 15 millimeter right renal cyst. Small left adrenal nodule unchanged f rom 2018 likely an adenoma. A Wade catheter has the balloon in the bladder. Hysterectomy. No evidence of diverticulitis. Mild na rrowing celiac artery. Postsurgical changes spine IMPRESSION: Mild bilateral patchy lung opacities probably pneumonia
[2021-06-10 17:32] LABS: SARS-COV-2 RT PCR NEGATIVE (NEGATIVE)
--- NOTE | 2021-06-10 18:24 | ER ---
Nurse's Notes [facility] Name: Agnes Calabrese Age: 81 yrs Sex: Female : 1940 Arrival Date: 06/10/2021 Time: 14:08 Bed 28 Private MD: Diagnosis: Pneumonia, unspecified organism;Altered mental status, unspecified Presentation: 06/10 14:09 Chief complaint: EMS states: pt from [facility]; was toned out by family due to pt vg1 'acting out of the normal' and 'not acting right'; Pt uses O2 at long-term PRN. Currently on O2, 97% 2 L NC. Coronavirus screen: Vaccine status: Patient reports receiving the 2nd dose of the covid vaccine. Client denies travel out of the [place] in the last 14 days. Ebola Screen: Patient negative for fever greater than or equal to 101.5 degrees Fahrenheit, and additional compatible Ebola Virus Disease symptoms. Initial Sepsis Screen: Does the patient meet any 2 criteria? RR > 20 per min. Temp <36.0*C (96.8*F)) or > 38.3*C (100.9*F). Yes Does the patient have a suspected source of infection? No. Patient's initial sepsis screen is negative. Risk Assessment: Do you want to hurt yourself or someone else? Patient reports no desire to harm self or others. Onset of symptoms was June 10, 2021. 14:09 Method Of Arrival: [facility] vg1 14:09 Acuity: WARREN 3 vg1 Triage Assessment: 14:12 General: Appears in no apparent distress. uncomfortable, Behavior is calm, cooperative. vg1 Pain: Complains of pain in right arm Pain currently is 10 out of 10 on a pain scale. EENT: No signs and/or symptoms were reported regarding the EENT system. Neuro: Level of Consciousness is awake, alert, obeys commands, Oriented to person, place, time, situation. Cardiovascular: Patient's skin is warm and dry. Respiratory: Airway is patent Respiratory effort is even, unlabored, Respiratory pattern is tachypnea. GI: Reports diarrhea. : No signs and/or symptoms were reported regarding the genitourinary system. Derm: Skin is pink, warm \\T\\ dry. Musculoskeletal: Circulation, motion, and sensation intact. Historical: - Allergies: 14:12 clindamycin HCl (bulk); vg1 14:12 Darvocet-N 100; vg1 14:12 PENICILLINS; vg1 14:12 Strawberries; vg1 14:12 Sulfa (Sulfonamide Antibiotics); vg1 - Home Meds: 14:12 alprazolam 0.25 mg Oral tab 1 tab twice a day for Anxiety [Active]; benzonatate 200 mg vg1 Oral cap 1 cap 3 times per day [Active]; bupropion HCl 150 mg Oral Tb24 1 tab once daily [Active]; bupropion HCl 300 mg Oral Tb24 1 tab once daily [Active]; donepezil 10 mg Oral tab 1 tab once daily [Active]; doxepin 50 mg Oral cap 1 cap once daily [Active]; duloxetine 60 mg Oral cpDR 2 caps once daily [Active]; Eliquis 5 mg Oral tab [Active]; Ellura 200 mg Oral cap daily [Active]; gabapentin 300 mg Oral cap 1 cap 3 times per day [Active]; - PMHx: 14:12 Cancer; Depression; Fibromyalgia; GERD; insomnia; lymphedema; skipped heart beats; vg1 Alzheimer's disease; - Immunization history:: Client reports receiving the 2nd dose of the Covid vaccine. - Social history:: Smoking status: Patient denies any tobacco usage or history of. Screenin:16 Abuse screen: Denies threats or abuse. Nutritional screening: No deficits noted. vg1 Tuberculosis screening: No symptoms or risk factors identified. Fall Risk Fall in past 12 months (25 points). No secondary diagnosis (0 pts). IV access (20 points). Ambulatory Aid- Crutches/Cane/Walker (15 pts). Gait- Normal/Bed Rest/Wheelchair (0 pts) Mental Status- Oriented to own ability (0 pts). Total Arredondo Fall Scale indicates High Risk Score (45 or more points). Fall prevention measures have been instituted. Side Rails Up X 2 Placed Close to Nursing Station. Assessment: 15:30 General: Appears in no apparent distress. comfortable, Behavior is calm, cooperative. eo2 Pain: Complains of pain in right arm. Neuro: Level of Consciousness is awake, alert, obeys commands, Oriented to person, place, Denies dizziness, headache. Cardiovascular: Denies chest pain, Heart tones S1 S2 Capillary refill < 3 seconds Patient's skin is warm and dry. Respiratory: Reports shortness of breath on exertion cough that is Airway is patent Trachea midline Respiratory effort is even, unlabored, Breath sounds are diminished bilaterally. GI: Abdomen is round non-distended, Bowel sounds present X 4 quads. :. : Urine is clear. Musculoskeletal: Reports pain in right arm. 16:34 Reassessment: r upper arm 20g IV infiltrated, difficult to obtain PIV on pt, 2 eo2 attempts, then able to obtain with ultrasound guidance. Pt to CT at this time, will start abx upon return. 17:31 Reassessment: Taurus Crain leaving bedside [phone], left pt's phone, hearing aide eo2 financial center manager at bedside. Vital Signs: 14:09 BP 147 / 74; Pulse 70; Resp 23; Temp 102.5; Pulse Ox 97% on 2 lpm NC; Weight 111.13 kg; vg1 Height 5 ft. 3 in. (160.02 cm); 15:00 BP 126 / 55; Pulse 73; Resp 20; Pulse Ox 98% ; Pain 5/10; eo2 15:30 BP 123 / 83; Pulse 63; Resp 19; Pulse Ox 98% on 2 lpm NC; eo2 16:24 BP 111 / 93; Pulse 65; Resp 17; Pulse Ox 98% ; Pain 5/10; eo2 17:00 BP 96 / 54; Pulse 57; Resp 16; Pulse Ox 98% on 2 lpm NC; eo2 18:00 BP 92 / 58; Pulse 55; Resp 14; Temp 99.2(O); Pulse Ox 99% 2 lpm ; eo2 18:30 BP 107 / 66; Pulse 52; Resp 14; Pulse Ox 98% ; eo2 14:09 Body Mass Index 43.40 (111.13 kg, 160.02 cm) vg1 ED Course: 14:08 Patient arrived in ED. vg1 14:12 Triage completed. vg1 14:14 Rodriguez Garcia PA is PHCP. cp 14:14 Rodriguez Berry MD is Attending Physician. cp 14:16 Arm band placed on. vg1 14:16 Patient has correct armband on for positive identification. Placed in gown. Bed in low vg1 position. Call light in reach. Side rails up X2. 14:17 Connie Lieberman, RN is Primary Nurse. vg1 15:04 XRAY Chest (1 view) In Process Unspecified. EDMS 15:09 Urine Microscopic Only Sent. mh5 15:09 Initial lab(s) drawn, by ED staff, sent to lab. Urine collected: Wade catheter 5 specimen, cloudy, EKG done, by ED staff, reviewed by Rodriguez VALDEZ. 15:35 COVID-19/FLU A+B Sent. eo2 16:24 laboratory monitor on. Pulse ox on. NIBP on. Door closed. Noise minimized. Warm blanket eo2 given. Pillow given. 16:24 No provider procedures requiring assistance completed. eo2 16:30 Inserted saline lock: 18 gauge in right antecubital area, using aseptic technique. eo2 16:48 CT Head Brain wo Cont In Process Unspecified. EDMS 16:48 CT Chest, Abdomen, Pelvis - W/Contrast In Process Unspecified. EDMS 17:06 COVID-19/FLU A+B (Document "Date of Onset" if Symptomatic) Sent. eo2 18:21 Rubi Soto PA is Hospitalizing Provider. cp 18:59 Socrates Stock is Hospitalizing Provider. cp 19:11 Report given to Aravind SANCHEZ. eo2 19:28 Primary Nurse role handed off by Connie Lieberman RN mw2 Administered Medications: 14:38 Drug: Tylenol 1000 mg Route: PO; iw 16:00 Follow up: Response: No adverse reaction; Temperature is decreased eo2 17:06 Drug: LevaQUIN (levofloxacin) 750 mg Route: IVPB; Site: right antecubital; eo2 18:27 Follow up: Response: No adverse reaction; IV Status: Completed infusion; IV Intake: eo2 100ml Intake: 18:27 IV: 100ml; Total: 100ml. eo2 Outcome: 18:23 Decision to Hospitalize by Provider. cp 06/11 13:08 Patient left the ED. tf1 Signatures: Dispatcher [employer] EDCarline Watts RN RN iw Rodriguez Garcia PA PA cp Martinez, Maria 5 Madie Burnett mw2 Neymar Monsivais RN RN tf1 Connie Lieberman RN RN 1 Mattie Meadows RN RN eo2 Corrections: (The following items were deleted from the chart) 06/10 14:16 14:12 Pain: Denies pain. vg1 vg1 16:36 16:34 Reassessment: difficult to obtain PIV on pt, 2 attempts, then able to obtain with eo2 ultrasound guidance. Pt to CT at this time, will start abx upon return eo2 17:32 17:31 Reassessment: Taurus Crain leaving bedside [phone] eo2 eo2 18:25 15:30 Respiratory: Reports shortness of breath on exertion Airway is patent Trachea eo2 midline Respiratory effort is even, unlabored, Breath sounds are diminished bilaterally. eo2
--- NOTE | 2021-06-10 18:25 | EDPHYS ---
Physician Documentation [facility] Name: Agnes Calabrese Age: 81 yrs Sex: Female : 1940 Arrival Date: 06/10/2021 Time: 14:08 Bed 28 Private MD: ED Physician Rodriguez Berry HPI: 06/10 14:30 This 81 yrs old Female presents to ER via EMS with complaints of Altered Mental Status. cp 14:30 The patient presents with confusion. cp 14:30 Onset: The symptoms/episode began/occurred this morning. cp 14:30 Possible causes: urinary tract infection. Associated signs and symptoms: Pertinent cp positives: fever, cough, Pertinent negatives: abdominal pain, chest pain, headache. Current symptoms: In the emergency department the patient's symptoms are unchanged from the initial presentation, despite home interventions. Historical: - Allergies: 14:12 clindamycin HCl (bulk); vg1 14:12 Darvocet-N 100; vg1 14:12 PENICILLINS; vg1 14:12 Strawberries; vg1 14:12 Sulfa (Sulfonamide Antibiotics); vg1 - Home Meds: 14:12 alprazolam 0.25 mg Oral tab 1 tab twice a day for Anxiety [Active]; benzonatate 200 mg vg1 Oral cap 1 cap 3 times per day [Active]; bupropion HCl 150 mg Oral Tb24 1 tab once daily [Active]; bupropion HCl 300 mg Oral Tb24 1 tab once daily [Active]; donepezil 10 mg Oral tab 1 tab once daily [Active]; doxepin 50 mg Oral cap 1 cap once daily [Active]; duloxetine 60 mg Oral cpDR 2 caps once daily [Active]; Eliquis 5 mg Oral tab [Active]; Ellura 200 mg Oral cap daily [Active]; gabapentin 300 mg Oral cap 1 cap 3 times per day [Active]; - PMHx: 14:12 Cancer; Depression; Fibromyalgia; GERD; insomnia; lymphedema; skipped heart beats; vg1 Alzheimer's disease; - Immunization history:: Client reports receiving the 2nd dose of the Covid vaccine. - Social history:: Smoking status: Patient denies any tobacco usage or history of. ROS: 14:35 Constitutional: Positive for fever. cp 14:35 Neuro: Positive for altered mental status. cp Exam: 14:40 Constitutional: The patient appears in no acute distress, alert, awake, cp non-diaphoretic, non-toxic, well developed, well nourished. 14:40 Head/Face: Normocephalic, atraumatic. cp 14:40 Eyes: Periorbital structures: appear normal, Pupils: equal, round, and reactive to light and accomodation, Conjunctiva: normal, no exudate, no injection, Sclera: no appreciated abnormality, Lids and lashes: appear normal, bilaterally. 14:40 ENT: External ear(s): are unremarkable, Nose: is normal, Mouth: Lips: dry, Oral mucosa: dry, Posterior pharynx: Airway: no evidence of obstruction, patent. 14:40 Neck: ROM/movement: is normal, is supple, without pain, no range of motions limitations. 14:40 Chest/axilla: Inspection: normal. 14:40 Cardiovascular: Rate: normal, Rhythm: regular, Edema: is not appreciated, JVD: is not appreciated. 14:40 Respiratory: the patient does not display signs of respiratory distress, Respirations: labored breathing, is not present, shallow respirations, that is mild, Breath sounds: decreased breath sounds, that are mild, throughout, stridor, is not appreciated, wheezing: is not appreciated. 14:40 Abdomen/GI: Inspection: obese Bowel sounds: active, all quadrants, Palpation: abdomen is soft and non-tender, in all quadrants. 14:40 Back: pain, is absent, ROM is normal. 14:40 Neuro: Orientation: to person, Mentation: confused, Motor: moves all fours, strength is normal. 15:22 ECG was reviewed by the Attending Physician. cp Vital Signs: 14:09 BP 147 / 74; Pulse 70; Resp 23; Temp 102.5; Pulse Ox 97% on 2 lpm NC; Weight 111.13 kg; vg1 Height 5 ft. 3 in. (160.02 cm); 15:00 BP 126 / 55; Pulse 73; Resp 20; Pulse Ox 98% ; Pain 5/10; eo2 15:30 BP 123 / 83; Pulse 63; Resp 19; Pulse Ox 98% on 2 lpm NC; eo2 16:24 BP 111 / 93; Pulse 65; Resp 17; Pulse Ox 98% ; Pain 5/10; eo2 17:00 BP 96 / 54; Pulse 57; Resp 16; Pulse Ox 98% on 2 lpm NC; eo2 18:00 BP 92 / 58; Pulse 55; Resp 14; Temp 99.2(O); Pulse Ox 99% 2 lpm ; eo2 18:30 BP 107 / 66; Pulse 52; Resp 14; Pulse Ox 98% ; eo2 14:09 Body Mass Index 43.40 (111.13 kg, 160.02 cm) vg1 MDM: 14:16 Patient medically screened. mayd 15:00 Differential Diagnosis: electrolyte abnormality, pneumonia, sepsis, UTI, volume cp depletion. 18:15 Data reviewed: vital signs, nurses notes, lab test result(s), EKG, radiologic studies, cp CT scan, plain films. 18:15 Test interpretation: by ED physician or midlevel provider: ECG, plain radiologic cp studies. Physician consultation: Rubi VALDEZ was called at 18:15, was contacted at 18:15, regarding admission, to the telemetry unit. patient's condition. 06/10 14:23 Order name: Basic Metabolic Panel; Complete Time: 15:06 cp 06/10 15:06 Interpretation: Normal except: CL 109; GLUC 143; GFR 50. cp 06/10 14:23 Order name: CBC with Diff; Complete Time: 15:06 cp 06/10 15:06 Interpretation: Normal except: WBC 12.30; SENAIT% 87.6; LYM% 7.0; NEUT A 10.8. cp 06/10 14:23 Order name: LFT's; Complete Time: 15:06 cp 06/10 14:23 Order name: Magnesium; Complete Time: 15:06 cp 06/10 14:23 Order name: NT PRO-BNP; Complete Time: 15:06 cp 06/10 14:23 Order name: PT-INR; Complete Time: 15:06 cp 06/10 14:23 Order name: Troponin HS; Complete Time: 15:06 cp 06/10 14:23 Order name: Lactate; Complete Time: 15:06 cp 06/10 14:23 Order name: Procalcitonin; Complete Time: 16:47 cp 06/10 16:47 Interpretation: Reviewed. cp 06/10 14:23 Order name: Blood Culture Adult (2) cp 06/10 14:23 Order name: Urine Microscopic Only; Complete Time: 16:47 cp 06/10 16:47 Interpretation: Reviewed. 06/10 15:08 Order name: Urine Dipstick-Ancillary; Complete Time: 15:10 EDOH 06/10 15:11 Order name: COVID-19/FLU A+B (Document "Date of Onset" if Symptomatic) iw 06/10 14:23 Order name: XRAY Chest (1 view); Complete Time: 15:26 cp 06/10 16:47 Interpretation: Report reviewed. 06/10 14:23 Order name: EKG; Complete Time: 14:24 cp 06/10 14:23 Order name: Cardiac monitoring; Complete Time: 14:38 06/10 14:23 Order name: EKG - Nurse/Tech; Complete Time: 15:09 cp 06/10 14:23 Order name: IV Saline Lock; Complete Time: 14:38 cp 06/10 14:23 Order name: Labs collected and sent; Complete Time: 14:38 06/10 15:12 Order name: COVID-19/FLU A+B; Complete Time: 18:55 EDOH 06/10 15:27 Order name: CT Head Brain wo Cont; Complete Time: 17:30 cp 06/10 15:27 Order name: CT Chest, Abdomen, Pelvis - W/Contrast; Complete Time: 17:30 06/11 03:16 Order name: CBC with Automated Diff EDMS 06/11 03:32 Order name: Comprehensive Metabolic Panel EDMS 06/11 03:32 Order name: Lipid Profile EDMS 06/11 03:32 Order name: T4 Free EDMS 06/11 03:32 Order name: Thyroid Stimulating Hormone EDOH 06/10 14:23 Order name: O2 Per Protocol; Complete Time: 14:38 cp 06/10 14:23 Order name: O2 Sat Monitoring; Complete Time: 14:38 06/10 14:23 Order name: Wade; Complete Time: 15:09 cp 06/10 14:23 Order name: Urine Dipstick-Ancillary (obtain specimen); Complete Time: 15:09 cp EC:22 Rate is 64 beats/min. Rhythm is regular. CT interval is prolonged at 210 msec. QRS cp interval is normal. QT interval is normal. T waves are Inverted in lead V2. Interpreted by me. Reviewed by me. Administered Medications: 14:38 Drug: Tylenol 1000 mg Route: PO; iw 16:00 Follow up: Response: No adverse reaction; Temperature is decreased eo2 17:06 Drug: LevaQUIN (levofloxacin) 750 mg Route: IVPB; Site: right antecubital; eo2 18:27 Follow up: Response: No adverse reaction; IV Status: Completed infusion; IV Intake: eo2 100ml Disposition Summary: 06/10/21 18:23 Hospitalization Ordered Hospitalization Status: Inpatient Admission cp Condition: Stable cp Problem: new cp Symptoms: have improved cp Bed/Room Type: Standard cp Provider: Socrates Stock(06/10/21 18:59) cp Location: Telemetry/MedSurg (Inpatient)(06/11/21 09:16) bd Room Assignment: [facility](06/11/21 09:16) bd Diagnosis - Pneumonia, unspecified organism cp - Altered mental status, unspecified cp Forms: - Medication Reconciliation Form cp - SBAR form cp Signatures: Dispatcher [employer] EDMS Silvia Loya Corey, MD MD cha Williams, Irene RN RN Rodriguez Garcia PA PA cp Garcia, Cindy, RN RN cg Connie Lieberman RN RN vg1 Mattie Meadows RN RN eo2 Rubi Soto PA PA sb3 Corrections: (The following items were deleted from the chart) 18:59 18:23 Rubi Soto cp cp 22:09 18:23 Telemetry/MedSurg (Inpatient) cp cg 22:09 18:23 cp cg 06/11 09:16 06/10 22:09 [facility] ER HOLD cg bd 06/11 09:16 06/10 22:09 ERHOLD- cg bd
[2021-06-10] MEDS ORDERED: ONDANSETRON 4 MG/2 ML VIAL IV PRN (20:08)
--- NOTE | 2021-06-10 20:09 | P.HP ---
Certification for Inpatient With expected LOS: <2 Midnights Patient will require the following post-hospital care: None Practitioner: I am a practitioner with admitting privileges, knowledge of patient current condition, hospital course, and medical plan of care. Services: Services provided to patient in accordance with Admission requirements found in Title 42 Section 412.3 of the Code of Federal Regulations Patient History Date of Service: 06/10/21 Primary Care Provider: Dr. Adler Reason for admission: Pneumonia,AMS History of Present Illness: Patient is an 81-year-old female with past medical history of afib, mild dementia, recurrent UTIs, cataracts, and TIAs who presented to the ED with AMS, fever, and cough. In the ED patient was oriented x1, WBC 12.3, Covid negative, no UTI. Chest CT showed "mild bilateral patchy lung opacities probably pneumonia." Head CT negative. Upon my assessment patient is oriented x3 and only complains of a cough. She states she has had a cough for 6 months now. She reports feeling febrile today. Patient received Levaquin in the ED. Ms. Calabrese will be admitted for further evaluation and treatment. Allergies clindamycin HCl [From Cleocin] Allergy (Severe, Verified 10/19/20 20:52) Hives/Rash clindamycin palmitate HCl [From Cleocin] Allergy (Severe, Verified 10/19/20 20:52) Hives/Rash clindamycin phosphate [From Cleocin] Allergy (Severe, Verified 10/19/20 20:52) Hives/Rash Penicillins Allergy (Severe, Verified 10/19/20 20:52) Hives/Rash Sulfa (Sulfonamide Antibiotics) [Sulfa(Sulfonamide Antibiotics)] Allergy (Severe, Verified 10/19/20 20:52) Hives/Rash acetaminophen [From Darvocet-N 100] Allergy (Verified 10/19/20 20:52) Unknown propoxyphene [From Darvocet-N 100] Allergy (Verified 10/19/20 20:52) Unknown strawberries Allergy (Severe, Uncoded 07/11/20 05:19) Hives/Rash Home medications list reviewed: Yes Home Medications: Simvastatin 40 mg PO BEDTIME 08/05/11 Memantine HCl 10 mg PO BID 01/11/18 Gabapentin 300 mg PO TID 05/25/19 Mupirocin Oint [Bactroban 2% Ointment*] 1 appl TP BID 10/19/20 Potassium Chloride 20 meq PO BID 10/19/20 Apixaban [Eliquis] 5 mg PO BID tablet 04/20/21 Bupropion *Xl* [Wellbutrin XL*] 300 mg PO DAILY #60 tab 04/20/21 Clopidogrel Bisulfate [Plavix*] 75 mg PO DAILY #30 04/20/21 Cranberry Fruit Extract [Ellura] 200 mg PO DAILY #30 04/20/21 Donepezil HCl 10 mg PO BEDTIME #30 04/20/21 Doxepin HCl 50 mg PO BEDTIME #30 04/20/21 Duloxetine HCl 60 mg PO BID #60 04/20/21 Flecainide [Tambocor*] 50 mg PO BID tab 04/20/21 Fluticasone/Umeclidin/Vilanter [Trelegy Ellipta 100-62.5-25] 1 each IH PRN #1 04/20/21 Furosemide [Lasix] 20 mg PO DAILY #30 tab 04/20/21 Levothyroxine [Synthroid*] 75 mcg PO [id number] #30 tab 04/20/21 Magnesium Oxide 1 tab PO DAILY #30 04/20/21 Montelukast [Singulair*] 10 mg PO DAILY tab 04/20/21 Pantoprazole Sodium [Protonix] 1 tab PO DAILY #30 04/20/21 Quetiapine [Seroquel] 100 mg PO BEDTIME #30 tab 04/20/21 Topiramate [Topamax] 200 mg PO BID #60 04/20/21 levoFLOXacin [Levaquin] 750 mg PO DAILY #2 tab 04/20/21 - Past Medical/Surgical History Diabetic: No -: Lymphedema -: heart arrhythmia w/ PVCs -: L breast cancer -: PE -: Meniere's Disease -: Former smoker -: Recurrent UTIs -: Fibromyalgia -: GERD -: Insomnia -: Depression -: Neuropathy -: s/p Left Mastectomy -: PATIENCE TKA -: Cervical fusion -: Lumbar fusion -: Appendectomy -: Hysterectomy Psychosocial/ Personal History: Patient lives in an assisted living facility. - Family History Father -: Diabetes Notes: heart attack. alcoholic - Social History Smoking Status: Former smoker Alcohol use: No CD- Drugs: No Caffeine use: No Place of Residence: Home Review of Systems 10-point ROS is otherwise unremarkable General: Fever, As per HPI Respiratory: Cough Physical Examination - Physical Exam General: Alert, In no apparent distress, Oriented x3 HEENT: Atraumatic, PERRLA, EOMI, Sclerae nonicteric Neck: Supple, 2+ carotid pulse no bruit, No LAD, Without JVD or thyroid abnormality Respiratory: Crackles/rales Cardiovascular: Regular rate/rhythm, Normal S1 S2 Gastrointestinal: Normal bowel sounds, No tenderness Musculoskeletal: No tenderness Integumentary: No rashes Neurological: Normal speech, Normal strength at 5/5 x4 extr, Normal tone, Normal affect Urinary: Wade catheter - Studies Laboratory Data (last 24 hrs) 06/10/21 14:25: PT 15.2 H, INR 1.32 06/10/21 14:25: WBC 12.30 H, Hgb 13.7, Hct 41.5, Plt Count 210 06/10/21 14:25: Sodium 138, Potassium 4.4, BUN 12, Creatinine 1.06, Glucose 143 H, Magnesium 1.8, Total Bilirubin 0.4, AST 15, ALT 21, Alkaline Phosphatase 108 Assessment and Plan - Problems (Diagnosis) (1) Pneumonia Current Visit: Yes Status: Acute Qualifiers: Pneumonia type: due to unspecified organism Laterality: bilateral (2) Afib Current Visit: Yes Status: Chronic Qualifiers: Atrial fibrillation type: unspecified chronic Qualified Code(s): I48.20 - Chronic atrial fibrillation, unspecified; I48.2 - Chronic atrial fibrillation (3) Dementia Current Visit: Yes Status: Chronic Qualifiers: Dementia type: unspecified type Dementia behavioral disturbance: without behavioral disturbance Qualified Code(s): F03.90 - Unspecified dementia without behavioral disturbance (4) History of TIA (transient ischemic attack) Current Visit: Yes Status: Chronic (5) Altered mental status Current Visit: Yes Status: Acute Qualifiers: Altered mental status type: unspecified Qualified Code(s): R41.82 - Altered mental status, unspecified - Plan -continue levaquin for pneumonia. patient has pcn and sulfa allergy. -tessalon pearls for cough -Tylenol for fever -patient is currently A&Ox3 -blood cultures drawn -continue home medications DVT ppx: eliquis Code: Full Discharge Plan: Home Plan to discharge in: 48 Hours - Advance Directives Does patient have a Living Will: No Does patient have a Durable POA for Healthcare: Yes - Code Status/Comfort Care Code Status Assessed: Yes (Full) Critical Care: No Time Spent Managing Pts Care (In Minutes): 70
[2021-06-10] MEDS: NA CHLORIDE 0.9% 1,000 ML IV SCH (20:47)
[2021-06-10] MEDS: APIXABAN 5 MG TABLET PO SCH (20:47)
[2021-06-10] MEDS ORDERED: APIXABAN 5 MG TABLET ONE (20:49)
[2021-06-10] MEDS ORDERED: NA CHLORIDE 0.9% 1,000 ML ONE (20:49)
[2021-06-11 01:57] VITALS: BMI 43.4
[2021-06-11] MEDS: ACETAMINOPHEN 500 MG TAB PO PRN ×2 (02:53→15:35)
[2021-06-11] MEDS ORDERED: ACETAMINOPHEN 500 MG TAB ONE (02:56)
[2021-06-11 03:14] LABS: Absolute Lymphocytes (CBC) 1.4 K/uL (0.7-4.9); Hematocrit 39.4 % (36.0-45.0); Lymphocytes % 13.2 % (15.3-44.8); MPV 8.3 fL (7.6-11.3); RBC Red Blood Cell Count 4.16 M/uL (3.86-4.86)
[2021-06-11 03:32] LABS: Albumin 2.3 g/dL (3.4-5.0); Bilirubin Total 0.6 mg/dL (0.2-1.0); Protein, Total 5.9 g/dL (6.4-8.2); Thyroid Stimulating Hormone 1.11 uIU/mL (0.360-3.740)
--- NOTE | 2021-06-11 07:24 | EKG ---
Test Date: 2021-06-10 Test Time: 15:16:02 Weed Sprayer: ALLI MEASUREMENT RESULTS: Intervals: Rate: 64 MD: 210 QRSD: 90 QT: 400 QTc: 412 [place]: P: 79 MD: 210 QRS: 90 T: 90 INTERPRETIVE STATEMENTS: Sinus rhythm with 1st degree AV block Rightward axis Nonspecific ST abnormality Abnormal ECG Compared to ECG 04/18/2021 13:43:12 Right-axis deviation now present ST (T wave) deviation now present Sinus bradycardia no longer present Electronically Signed On 06-11-21 07:22:38 [employer] by Luis Reveles
[2021-06-11] MEDS: NA CHLORIDE 0.9% 1,000 ML IV SCH ×2 (08:55→21:42)
[2021-06-11] MEDS: APIXABAN 5 MG TABLET PO SCH ×2 (08:56→20:29)
[2021-06-11] MEDS ORDERED: APIXABAN 5 MG TABLET ONE (08:57)
[2021-06-11] MEDS ORDERED: NA CHLORIDE 0.9% 1,000 ML ONE (08:57)
[2021-06-11 15:58] LABS: Urine Appearance CLEAR (Clear); Urine Bilirubin NEGATIVE (Negative); Urine Blood 1+ (Negative); Urine Color YELLOW (Yellow); Urine Glucose NEGATIVE (Negative); Urine Protein NEGATIVE (Negative); Urine Specific Gravity 1.015 (1.005-1.030)
[2021-06-11 15:59] LABS: Urine Microscopic Reflex ORDER UMIC
[2021-06-11 16:17] LABS: Urine Amorphous Sediment TRACE /HPF (NONE SEEN); Urine Bacteria <20 /HPF (<20); Urine Mucus 1+ /HPF (NONE SEEN); Urine RBC <5 /HPF (NONE SEEN)
--- NOTE | 2021-06-11 16:33 | P.PN ---
Subjective Date of Service: 06/11/21 Primary Care Provider: Dr. Adler Chief Complaint: Pneumonia,AMS Patient is currently alert and oriented. She has been coughing intermittently. Cough is nonproductive. She denies any chest pain. She has been afebrile today. Physical Examination - Vital Signs Temperature: 97 F Blood Pressure: 119/58 Pulse: 56 Respirations: 14 Pulse Ox (%): 99 Assessment And Plan - Plan Physical Exam General: Alert, In no apparent distress, Oriented x3 HEENT: Atraumatic, PERRLA, EOMI, Sclerae nonicteric Neck: Supple, 2+ carotid pulse no bruit, No LAD, Without JVD or thyroid abnormality Respiratory: Mild diffuse crackles/rales Cardiovascular: Regular rate/rhythm, Normal S1 S2 Gastrointestinal: Normal bowel sounds, No tenderness Musculoskeletal: No tenderness Integumentary: No rashes Neurological: Normal speech, Normal strength at 5/5 x4 extr, Normal tone, Normal affect Urinary: Wade catheter Assessment and plan Altered mental status resolved Continue current antibiotics. Supportive measures with IV hydration. Antitussives. Supplemental oxygen as needed. Chest physiotherapy. Continue Eliquis. Resume other home medications.
[2021-06-11] MEDS ORDERED: SIMETHICONE PO PRN (16:34)
[2021-06-11] MEDS ORDERED: LOPERAMIDE HCL PO PRN (16:34)
[2021-06-11] MEDS ORDERED: HOME MED 1 EA UNK (Flecainide Acetate [Flecainide Acetate] 50 MG Tablet) PO SCH (16:45)
[2021-06-11] MEDS ORDERED: Levofloxacin 750mg IV 750 MG/150 ML BAG IV SCH (17:00)
[2021-06-11] MEDS: GABAPENTIN 300 MG CAP PO SCH (18:51)
[2021-06-11] MEDS: POTASSIUM CL SA 10 MEQ TAB PO SCH (20:26)
[2021-06-11] MEDS: FLECAINIDE 100 MG TAB PO SCH (20:27)
[2021-06-11] MEDS: DULOXETINE 30 MG CAP PO SCH (20:28)
[2021-06-11] MEDS: MEMANTINE HCL 10 MG TABLET PO SCH (20:28)
[2021-06-11] MEDS: TOPIRAMATE 100 MG TAB PO SCH (20:28)
[2021-06-11] MEDS: DOXEPIN HCL 25 MG CAP PO SCH (20:28)
[2021-06-11] MEDS: ATORVASTATIN 20 MG TAB PO SCH (20:29)
[2021-06-11] MEDS: METOPROLOL XL 25 MG TAB PO SCH (20:29)
[2021-06-11] MEDS: CYCLOSPORINE OPTH SCH (20:30)
[2021-06-11] MEDS: QUETIAPINE 100MG TAB PO SCH (20:33)
[2021-06-11] MEDS ORDERED: DOXEPIN HCL 75 MG PO SCH (21:00)
[2021-06-11] MEDS ORDERED: HOME MED 1 EA UNK (Simvastatin [Simvastatin] 40 MG Tablet) PO SCH (21:00)
[2021-06-11] MEDS ORDERED: HOME MED 1 EA UNK (Potassium Chloride [Potassium Chloride] 20 MEQ Tab.Er.Prt) PO SCH (21:00)
[2021-06-11] MEDS ORDERED: HOME MED 1 EA UNK (Duloxetine Hcl [Duloxetine Hcl] 60 MG Capsule.Dr) PO SCH (21:00)
[2021-06-12] MEDS: GABAPENTIN 300 MG CAP PO SCH ×3 (00:30→16:39)
[2021-06-12 04:19] LABS: Absolute Lymphocytes (CBC) 1.3 K/uL (0.7-4.9); Hematocrit 37.2 % (36.0-45.0); Lymphocytes % 19.2 % (15.3-44.8); MPV 8.6 fL (7.6-11.3); RBC Red Blood Cell Count 3.93 M/uL (3.86-4.86)
[2021-06-12 04:39] LABS: Albumin 2.3 g/dL (3.4-5.0); Bilirubin Total 0.4 mg/dL (0.2-1.0); Potassium 4.1 mmol/L (3.5-5.1); Protein, Total 5.6 g/dL (6.4-8.2)
[2021-06-12] MEDS: LEVOTHYROXINE SOD 0.075 MG TAB PO SCH (05:15)
[2021-06-12] MEDS ORDERED: HOME MED 1 EA UNK (Cyanocobalamin (Vitamin B-12) [Vitamin B12] 2,500 MCG Tab.Chew) PO SCH (09:00)
[2021-06-12] MEDS ORDERED: HOME MED 1 EA UNK (Bupropion Hcl [Bupropion Xl] 300 MG Tab.Er.24h) PO SCH (09:00)
[2021-06-12] MEDS ORDERED: HOME MED 1 EA UNK (Donepezil Hcl [Donepezil Hcl] 10 MG Tablet) PO SCH (09:00)
[2021-06-12] MEDS: HOME MED (Fluticasone/Umeclidin/Vilanter [Trelegy Ellipta 100-62.5-25] Blst.W.Dev IH SCH (09:00)
[2021-06-12] MEDS: MONTELUKAST 10 MG TAB PO SCH (09:00)
[2021-06-12] MEDS: CYCLOSPORINE OPTH SCH ×2 (09:00→20:32)
[2021-06-12] MEDS: MEMANTINE HCL 10 MG TABLET PO SCH ×2 (09:53→20:33)
[2021-06-12] MEDS: POTASSIUM CL SA 10 MEQ TAB PO SCH ×2 (09:53→20:38)
[2021-06-12] MEDS: CYANOCOBALAMIN 1,000 MCG TAB PO SCH (09:53)
[2021-06-12] MEDS: FLECAINIDE 100 MG TAB PO SCH ×2 (09:53→20:34)
[2021-06-12] MEDS: BUPROPION HCL XL 150 MG TAB PO SCH (09:53)
[2021-06-12] MEDS: FUROSEMIDE 20 MG TABLET PO SCH (09:53)
[2021-06-12] MEDS: PANTOPRAZOLE 40MG TABLET PO SCH (09:53)
[2021-06-12] MEDS: TIZANIDINE 4 MG TABLET PO SCH (09:53)
[2021-06-12] MEDS: TOPIRAMATE 100 MG TAB PO SCH ×2 (09:54→20:35)
[2021-06-12] MEDS: DONEPEZIL HCL 5 MG TAB PO SCH (09:54)
[2021-06-12] MEDS: DULOXETINE 30 MG CAP PO SCH ×2 (09:54→20:32)
[2021-06-12] MEDS: APIXABAN 5 MG TABLET PO SCH ×2 (09:54→20:33)
[2021-06-12] MEDS: BENZONATATE 100 MG CAP PO PRN (12:32)
--- NOTE | 2021-06-12 14:36 | RAD REPORT ---
EXAM DESCRIPTION: RAD - Chest Single View - 06/12/2021 2:24 pm CLINICAL HISTORY: SOB Chest pain. COMPARISON: Chest Single View dated 06/10/2021; Chest Single View dated 04/18/2021; Chest Single View dated 12/03/2020; Chest Single View dated 10/19/2020 FINDINGS: Portable technique limits examination quality. Mild bilateral pulmonary opacities are present compatible with pulmonary edema. The heart is mildly e nlarged in size. Cervical hardware plate.Right humeral prosthesis. IMPRESSION: Mild CHF.
--- NOTE | 2021-06-12 15:15 | P.PN ---
Subjective Date of Service: 06/12/21 Primary Care Provider: Dr. Adler Chief Complaint: Pneumonia,AMS Patient had bouts of coughing spells today. She is maintained on 2 L oxygen by nasal cannula. She has been wheelchair-bound for several months but able to transfer at baseline. Physical Examination - Vital Signs Temperature: 97.9 F Blood Pressure: 103/57 Pulse: 48 Respirations: 16 Pulse Ox (%): 95 Assessment And Plan - Plan Physical Exam General: Alert, In no apparent distress, Oriented x3 HEENT: Atraumatic, PERRLA, EOMI, Sclerae nonicteric Neck: Supple, 2+ carotid pulse no bruit, No LAD, Without JVD or thyroid abnormality Respiratory: Mild diffuse crackles/rales Cardiovascular: Regular rate/rhythm, Normal S1 S2 Gastrointestinal: Normal bowel sounds, No tenderness Musculoskeletal: No tenderness Integumentary: No rashes Neurological: Normal speech, Normal strength at 5/5 x4 extr, Normal tone, Normal affect Urinary: Wade catheter Assessment and plan Altered mental status resolved Transition IV antibiotic to oral Levaquin Supportive measures with IV hydration. Antitussives. Supplemental oxygen as needed. Chest physiotherapy. Continue Eliquis. PT. Increase activity as tolerated.
[2021-06-12] MEDS ORDERED: levoFLOXacin 750 MG TAB PO SCH (17:00)
[2021-06-12] MEDS: ATORVASTATIN 20 MG TAB PO SCH (20:33)
[2021-06-12] MEDS: QUETIAPINE 100MG TAB PO SCH (20:34)
[2021-06-12] MEDS: DOXEPIN HCL 25 MG CAP PO SCH (20:34)
[2021-06-12] MEDS: METOPROLOL XL 25 MG TAB PO SCH (20:35)
[2021-06-13] MEDS: GABAPENTIN 300 MG CAP PO SCH ×3 (00:35→16:21)
[2021-06-13] MEDS: LEVOTHYROXINE SOD 0.075 MG TAB PO SCH (05:30)
[2021-06-13 06:25] LABS: Absolute Lymphocytes (CBC) 1.5 K/uL (0.7-4.9); Hematocrit 36.5 % (36.0-45.0); Lymphocytes % 25.1 % (15.3-44.8); RBC Red Blood Cell Count 3.91 M/uL (3.86-4.86)
[2021-06-13 06:39] LABS: Albumin 2.3 g/dL (3.4-5.0); Bilirubin Total 0.4 mg/dL (0.2-1.0); Potassium 3.9 mmol/L (3.5-5.1); Protein, Total 5.9 g/dL (6.4-8.2)
[2021-06-13] MEDS: MEMANTINE HCL 10 MG TABLET PO SCH ×2 (08:25→20:05)
[2021-06-13] MEDS: DULOXETINE 30 MG CAP PO SCH ×2 (08:25→20:05)
[2021-06-13] MEDS: DONEPEZIL HCL 5 MG TAB PO SCH (08:25)
[2021-06-13] MEDS: TOPIRAMATE 100 MG TAB PO SCH ×2 (08:25→20:07)
[2021-06-13] MEDS: PANTOPRAZOLE 40MG TABLET PO SCH (08:26)
[2021-06-13] MEDS: APIXABAN 5 MG TABLET PO SCH ×2 (08:26→20:05)
[2021-06-13] MEDS: CYANOCOBALAMIN 1,000 MCG TAB PO SCH (08:26)
[2021-06-13] MEDS: POTASSIUM CL SA 10 MEQ TAB PO SCH ×2 (08:26→20:06)
[2021-06-13] MEDS: MONTELUKAST 10 MG TAB PO SCH (08:27)
[2021-06-13] MEDS: FLECAINIDE 100 MG TAB PO SCH ×2 (08:27→20:26)
[2021-06-13] MEDS: TIZANIDINE 4 MG TABLET PO SCH (08:29)
[2021-06-13] MEDS: BUPROPION HCL XL 150 MG TAB PO SCH (08:29)
[2021-06-13] MEDS: HOME MED (Fluticasone/Umeclidin/Vilanter [Trelegy Ellipta 100-62.5-25] Blst.W.Dev IH SCH (09:00)
[2021-06-13] MEDS: CYCLOSPORINE OPTH SCH ×2 (09:00→20:07)
[2021-06-13] MEDS: FUROSEMIDE 20 MG TABLET PO SCH (09:38)
[2021-06-13] MEDS ORDERED: ALBUTEROL 90 MCG INHALER IH PRN (10:32)
--- NOTE | 2021-06-13 15:42 | P.PN ---
Subjective Date of Service: 06/13/21 Primary Care Provider: Dr. Adler Chief Complaint: Pneumonia,AMS Patient states she is feeling better today She is maintained on 2 L oxygen by nasal cannula. No issues overnight. Physical Examination - Vital Signs Temperature: 97.0 F Blood Pressure: 119/62 Pulse: 61 Respirations: 18 Pulse Ox (%): 93 Assessment And Plan - Plan Physical Exam General: Alert, In no apparent distress, Oriented x3 HEENT: Atraumatic, PERRLA, EOMI, Sclerae nonicteric Neck: Supple, No LAD, Without JVD or thyroid abnormality Respiratory: Mild diffuse crackles/rales, adequate breath sounds bilaterally. Cardiovascular: Regular rate/rhythm, Normal S1 S2 Gastrointestinal: Normal bowel sounds, No tenderness Musculoskeletal: No tenderness Integumentary: No rashes Neurological: Normal speech, Normal strength at 5/5 x4 extr, Normal affect Urinary: Wade catheter Assessment and plan Altered mental status resolved Continue oral Levaquin Supportive measures with IV hydration. Antitussives. Supplemental oxygen as needed. Chest physiotherapy. Continue Eliquis. Discontinue Wade. Patient is able to transfer. Family requesting for rehab Continue PT. Increase activity as tolerated. Social service assisting with arrangements for skilled rehab placement.
[2021-06-13] MEDS: BENZONATATE 100 MG CAP PO PRN (16:23)
[2021-06-13] MEDS: QUETIAPINE 100MG TAB PO SCH (20:05)
[2021-06-13] MEDS: DOXEPIN HCL 25 MG CAP PO SCH (20:05)
[2021-06-13] MEDS: ATORVASTATIN 20 MG TAB PO SCH (20:06)
[2021-06-13] MEDS: METOPROLOL XL 25 MG TAB PO SCH (20:25)
[2021-06-14] MEDS: GABAPENTIN 300 MG CAP PO SCH ×2 (03:16→08:42)
[2021-06-14] MEDS: ACETAMINOPHEN 500 MG TAB PO PRN (03:38)
[2021-06-14] MEDS: LEVOTHYROXINE SOD 0.075 MG TAB PO SCH (06:40)
[2021-06-14] MEDS: TOPIRAMATE 100 MG TAB PO SCH (08:41)
[2021-06-14] MEDS: CYANOCOBALAMIN 1,000 MCG TAB PO SCH (08:42)
[2021-06-14] MEDS: BUPROPION HCL XL 150 MG TAB PO SCH (08:42)
[2021-06-14] MEDS: DULOXETINE 30 MG CAP PO SCH (08:42)
[2021-06-14] MEDS: DONEPEZIL HCL 5 MG TAB PO SCH (08:42)
[2021-06-14] MEDS: APIXABAN 5 MG TABLET PO SCH (08:42)
[2021-06-14] MEDS: PANTOPRAZOLE 40MG TABLET PO SCH (08:42)
[2021-06-14] MEDS: POTASSIUM CL SA 10 MEQ TAB PO SCH (08:42)
[2021-06-14] MEDS: MEMANTINE HCL 10 MG TABLET PO SCH (08:42)
[2021-06-14] MEDS: MONTELUKAST 10 MG TAB PO SCH (08:42)
[2021-06-14] MEDS: TIZANIDINE 4 MG TABLET PO SCH (08:42)
[2021-06-14] MEDS: CYCLOSPORINE OPTH SCH (08:43)
[2021-06-14] MEDS: FUROSEMIDE 20 MG TABLET PO SCH (08:52)
[2021-06-14] MEDS: HOME MED (Fluticasone/Umeclidin/Vilanter [Trelegy Ellipta 100-62.5-25] Blst.W.Dev IH SCH (08:53)
[2021-06-14] MEDS: FLECAINIDE 100 MG TAB PO SCH (09:00)
[2021-06-14] MEDS: BENZONATATE 100 MG CAP PO PRN (10:52)
[2021-06-14 11:38] VITALS: O2SAT 98
[2021-06-14 13:24] VITALS: BP 91/53; TEMP 97
--- NOTE | 2021-06-14 13:35 | P.DS ---
Admission Date: 06/10/21 Discharge Date: 06/14/21 Primary Care Provider: Dr. Adler Disposition: TRANSFER TO JAIL Discharge Condition: FAIR Reason for Admission: Pneumonia,AMS - Problems (1) Pneumonia Current Visit: Yes Status: Acute Qualifiers: Pneumonia type: due to unspecified organism Laterality: bilateral (2) History of TIA (transient ischemic attack) Current Visit: Yes Status: Chronic (3) Acute metabolic encephalopathy Current Visit: No Status: Acute (4) COPD (chronic obstructive pulmonary disease) Current Visit: No Status: Acute (5) Afib Current Visit: Yes Status: Chronic Qualifiers: Atrial fibrillation type: unspecified chronic Qualified Code(s): I48.20 - Chronic atrial fibrillation, unspecified; I48.2 - Chronic atrial fibrillation (6) Dementia Current Visit: Yes Status: Chronic Qualifiers: Dementia type: unspecified type Dementia behavioral disturbance: without behavioral disturbance Qualified Code(s): F03.90 - Unspecified dementia without behavioral disturbance (7) Morbid obesity Current Visit: No Status: Chronic Brief History of Present Illness: Patient is an 81-year-old female with past medical history of afib, mild dementia, recurrent UTIs, cataracts, and TIAs who presented to the ED with AMS, fever, and cough. In the ED patient was oriented x1, WBC 12.3, Covid n egative, no UTI. Chest CT showed "mild bilateral patchy lung opacities probably pneumonia." Head CT negative. Upon my assessment patient is oriented x3 and only complains of a cough. She states she has had a cough for 6 months now. She reports feeling febrile today. Patient received Levaquin in the ED. Ms. Calabrese admitted for further evaluation and treatment. Hospital Course: Patient admitted to the medical floor and treated for pneumonia with IV antibiotic Altered mental status resolved. Antibiotics transition to oral Levaquin She was also hydrated briefly with IV fluid. Supplemental oxygen as needed. Continue Eliquis for A. fib anticoagulation. Patient clinically improved. She was weaned off oxygen. She was seen and evaluated by PT. She is currently able to transfer. Wade was inserted on admission which was discontinued PT recommended rehab. Patient has been accepted to skilled rehab. She is deemed stable for discharge. Vital Signs/Physical Exam: Temp Pulse Resp BP Pulse Ox 97.0 F 53 16 91/53 L 99 06/14/21 12:00 06/14/21 12:00 06/14/21 12:00 06/14/21 12:00 06/14/21 12:00 General: Alert, In no apparent distress, Oriented x3 HEENT: Mucous membr. moist/pink Neck: JVD not distended Respiratory: Clear to auscultation bilaterally, Diminished Cardiovascular: No edema Gastrointestinal: Soft and benign, Non-distended, No tenderness Musculoskeletal: No swelling Integumentary: No cyanosis Neurological: Normal strength at 5/5 x4 extr Laboratory Data at Discharge: WBC 5.90 K/uL (4.3-10.9) D 06/13/21 06:08 Hgb 12.3 g/dL (12.0-15.0) 06/13/21 06:08 Hct 36.5 % (36.0-45.0) 06/13/21 06:08 Plt Count 170 K/uL (152-406) 06/13/21 06:08 PT 15.2 SECONDS (9.5-12.5) H 06/10/21 14:25 INR 1.32 06/10/21 14:25 Sodium 141 mmol/L (136-145) 06/13/21 06:08 Potassium 3.9 mmol/L (3.5-5.1) 06/13/21 06:08 BUN 8 mg/dL (7-18) 06/13/21 06:08 Creatinine 0.98 mg/dL (0.55-1.3) 06/13/21 06:08 Glucose 85 mg/dL (74-106) 06/13/21 06:08 Magnesium 1.8 mg/dL (1.8-2.4) 06/10/21 14:25 Total Bilirubin 0.4 mg/dL (0.2-1.0) 06/13/21 06:08 AST 13 U/L (15-37) L 06/13/21 06:08 ALT 13 U/L (12-78) 06/13/21 06:08 Alkaline Phosphatase 79 U/L (45-117) 06/13/21 06:08 Triglycerides 60 mg/dL (<150) 06/11/21 02:49 Cholesterol 131 mg/dL (<200) 06/11/21 02:49 HDL Cholesterol 52 mg/dL (40-60) 06/11/21 02:49 Cholesterol/HDL Ratio 2.52 06/11/21 02:49 Home Medications: ALPRAZolam [Alprazolam] 0.25 mg PO Q8HP PRN 06/11/21 Albuterol Sulfate [Proair Respiclick] 2 puff IH Q6HP PRN 06/11/21 Apixaban [Eliquis] 5 mg PO BID 06/11/21 Cranberry Fruit Extract [Ellura] 200 mg PO DAILY 06/11/21 Cyanocobalamin (Vitamin B-12) [Vitamin B12] 1,000 mcg PO DAILY 06/11/21 Cyclosporine [Restasis] 1 drop EACH EYE BID 06/11/21 Donepezil HCl 10 mg PO DAILY 06/11/21 Doxepin HCl 75 mg PO BEDTIME 06/11/21 Duloxetine HCl 60 mg PO BID 06/11/21 Estradiol 0.01% Cream 0.5 g VAG SEECOM 06/11/21 Flecainide Acetate 50 mg PO Q12H 06/11/21 Fluticasone/Umeclidin/Vilanter [Trelegy Ellipta 100-62.5-25] 1 each IH DAILY 06/11/21 Furosemide 20 mg PO DAILY 06/11/21 Gabapentin 300 mg PO Q8H 06/11/21 Levothyroxine [Synthroid*] 75 mcg PO [id number] 06/11/21 Loperamide HCl/Simethicone [Imodium Multi-Symptom Rel Cplt] 1 each PO DAILY PRN 06/11/21 Memantine HCl 10 mg PO BID 06/11/21 Metoprolol Succinate 25 mg PO BEDTIME 06/11/21 Montelukast [Singulair*] 10 mg PO DAILY 06/11/21 Pantoprazole [Protonix Tab*] 40 mg PO DAILY 06/11/21 Potassium Chloride 20 meq PO BID 06/11/21 Quetiapine Fumarate [Seroquel] 100 mg PO BEDTIME 06/11/21 Simvastatin 40 mg PO BEDTIME 06/11/21 Tizanidine HCl 4 mg PO DAILY 06/11/21 Topiramate 100 mg PO BID 06/11/21 buPROPion HCL [Bupropion Xl] 300 mg PO DAILY 06/11/21 Benzonatate [Tessalon Perle*] 100 mg PO TID PRN cap 02/25/22 levoFLOXacin [Levaquin*] 750 mg PO Q48H #3 tab 06/14/21 Diet: AHA Activity: Fall precautions Time spent managing pt's care (in minutes): 36
== END 2021-06-14 03:00 | DRG 193 ==
LOC: ER 13:55 → ERHOLD 19:59 → 4TH 06-11 09:47 → 2ND 06-12 00:17
PROVIDERS: ADMIT Internal Medicine; ATTEND Internal Medicine
DX: J18.9 Pneumonia, unspecified organism (principal); G93.41 Metabolic encephalopathy; I48.20 Chronic atrial fibrillation, unspecified; J44.0 Chronic obstructive pulmonary disease with (acute) lower respiratory infection; Z68.41 Body mass index [BMI] 40.0-44.9, adult; Z79.01 Long term (current) use of anticoagulants; F03.90 Unspecified dementia, unspecified severity, without behavioral disturbance, psychotic disturbance, mood disturbance, and anxiety; E66.01 Morbid (severe) obesity due to excess calories; Z86.73 Personal history of transient ischemic attack (TIA), and cerebral infarction without residual deficits; Z20.822 Contact with and (suspected) exposure to COVID-19; Z85.3 Personal history of malignant neoplasm of breast
CPT/HCPCS: 0240U; 36415; 70450; 71045; 71260; 74177; 80048; 80053; 80061; 80076; 81003; 81015; 83605; 83735; 83880; 84145; 84439; 84443; 84484; 85025; 85610; 87040; 87086; 87088; 93005; 94010; 96365; 97110; 97116; 97161; 97530; 99285; J7030; Q9967; U0003

== ENCOUNTER 2021-11-08 23:57 | Emergency (ER) | payer OTHER ==
--- OUTSIDE RECORDS SUMMARY | 2021-11-09 00:02 | XMS REPORT | Continuity of Care Document ---
:1940 Author Organization [facility] t Address [address] [place] [address] Care Team Providers Name Role Phone Farhat HOLT Primary Care Physician Sol Torres Attending Clinician Unavailable [id number] Attending Clinician Unavailable CHRYSTAL BARRETT Attending Clinician Unavailable Doctor Unassigned, Name Attending Clinician Unavailable Stevan Batista Attending Clinician Rachelle Huynh MD Attending Clinician Chrystal Barrett MD Attending Clinician Aleena Goetz MD Attending Clinician Jeannie Ferreira MD Attending Clinician Linda Diaz MD Attending Clinician Hilton HOLT Attending Clinician [id number] Admitting Clinician Unavailable CHRYSTAL BARRETT Admitting Clinician Unavailable ALEENA GOETZ Admitting Clinician Unavailable Payers Payer Name Policy Type Policy Number Effective Date Expiration Date S ource Problems Condition Condition Condition Status Onset Resolution Last Treating Co mments Source Name Details Category Date Date Treatment Clinician Date Atrial Atrial Disease Active [facility] fibr[facility] fibrillati 8-16 Carol kes on with on with 00:00: Medical RVR RVR 00 Center 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 00:00: [place] replacemen replacemen 00 Me dical t, left t, left Branch Morbid Morbid Disease Active 2015-04 Univers obesity obesity 2-20 ity of with body with body 00:00: [place] mass index mass index 00 Me dical of 50 or of 50 or Branch higher higher Morbid Morbid Disease Active 2015-04 Univers obesity obesity 2-20 ity of with body with body 00:00: [place] mass index mass index 00 Me dical of of Branch 40.0-49.9 40.0-49.9 CINTHIA CINTHIA Disease Active [facility] (obstructi (obstructi Carol kes ve sleep ve sleep Medica l apnea) apnea) Center Allergies, Adverse Reactions, Alerts Allergy Allergy Status Severity Reaction(s) Onset Inactive Treating Comm ents Source Name Type Date Date Clinician STRAWBER Allergy Active Low Rash 2020-[address] [facility] [address] [facility] 8-17 [facility] 00:[facility]: Medical 00 Center Strawber Propensi Active Rash 2020-[address] ry ty to 8-17 [facility] adverse 00:00: Medical reaction 00 Center s CLINDAMY Allergy Active High Rash 2020-[address] [facility] [address] JOSE HCL 8-16 [facility] 00:00: Medical 00 Center PENICILL Allergy Active High Rash 2020-[address] [facility] IN 8-16 [facility] 00:00: Medical 00 Center SULFA Allergy Active High Rash 2020-[address] [facility] (SULFONA 8-16 [facility] MIDE 00:00: Medical ANTIBIOT 00 Center [facility]) Clindamy Propensi Active Rash 2020-[address] jose Hcl ty to 8-16 [facility] adverse 00:00: Medical reaction 00 Center s Penicill Propensi Active Rash 2020-[address] in ty to 8-16 [facility] adverse 00:00: Medical reaction 00 Center s Sulfa Propensi Active Rash 2020-[address] (Sulfona ty to 8-16 [facility] mide adverse 00:00: Medical Antibiot reaction 00 [facility]) s Clindamy Propensi Active Unknown 2020-0 Metho di jose ty to Reaction 6-30 st Phosphat adverse 00:00: Hospita e reaction 00 l s to drug Propoxyp Propensi Active Unknown 2020-0 Metho di hene ty to Reaction [address] st N-Acetam adverse 00:00: Hospita inophen reaction 00 l s to drug Penicill Propensi Active Unknown 2020-0 Metho di ins ty to Reaction [address] adverse 00:00: Hospita reaction 00 l s to drug Sulfa Propensi Active Unknown 2020-0 Methodi (Sulfona ty to Reaction 30 st mide adverse 00:00: Hospita Antibiot reaction 00 l ics) s to drug Acetamin Propensi Active Unknown 2020-0 Metho di ophen ty to Reaction [address] adverse 00:00: Hospita reaction 00 l s to drug Acetamin Propensi Active Unknown - 2020-0 Uni vers ophen ty to See comments 6-30 ity of adverse 00:00: [place] reaction 00 Medical s Branch Propoxyp Propensi Active Unknown - 2020-0 Uni vers hene ty to See comments 630 ity of N-Acetam adverse 00:00: [place] inophen reaction 00 Medical s Branch Clindamy Propensi Active Rash 2015-04 Univer [...] reaction 00 Medica l ics) s Branch Sulfa Propensi Active Rash 2015-04 Univers (Sulfona ty to 2-19 ity of mide adverse 00:00: [place] Antibiot reaction 00 Medica l ics) s Branch Family History Family Member Diagnosis Comments Start Date Stop Date Source Natural father Heart disease Method[facility] Natural father Diabetes [facility] Natural mother Asthma [facility] Social History Social Habit Start Date Stop Date Quantity Comments Source History SDOH [facility] Alcohol Std Drinks Medica l Center History SDOH [facility] Alcohol Binge Medical Dagoberto ter History SDOH [facility] Alcohol Comment Medical C enter History of tobacco Smoker [facility] use Exposure to 2021-06-24 2021-07-24 Not sure [facility] SARS-CoV-2 (event) 00:00:00 14:26:00 Medica l Branch Alcohol intake 2021-07-24 2021-07-24 0 /d [facility] 00:00:00 00:00:00 [facility] Branch Tobacco use and 2020-12-03 2020-12-[address] Carol kes exposure 00:00:00 00:00:00 Medical Center History SDOH 2020-12-03 2020-12-[address] [facility] Alcohol Frequency 00:00:00 00:00:00 [facility] Cigarettes smoked 2019-10-18 2019-10-18 [facility] current (pack per 00:00:00 00:00:00 day) - Reported Cigarette 2019-10-18 2019-10-18 [facility] pack-years 00:00:00 00:00:00 Sex [birth year] [facility] 00:00:00 00:00:00 [facility] Branch Smoking Status Start Date Stop Date Source Never smoker [facility] Former smoker 2019-10-18 00:00:00 2019-10-18 00:00:00 [facility] Medications Ordered Filled Start Stop Current Ordering Indication Dosage Frequency Signature Comments Components Source Medication Medication Date Date Medication? Clinician (SIG) Name Name buPROPion Yes Univers XL 150 mg 8-26 ity of 24 hr 00:00: [place] tablet 00 [facility] buPROPion Yes Univers XL 150 mg 8-26 ity of 24 hr 00:00: [place] tablet 00 [facility] buPROPion Yes Univers XL 150 mg 8-26 ity of 24 hr 00:00: [place] tablet 00 [facility] buPROPion Yes Univers XL 150 mg 8-26 ity of 24 hr 00:00: [place] tablet 00 [facility] buPROPion Yes Univers XL 150 mg 8-26 ity of 24 hr 00:00: [place] tablet [facility] furosemide 2021- No 20mg QD Take [address] (LASIX) 20 8- 08-23 tablet (20 Carol kes MG tablet 00:00: 23:59 mg total) Me dical 00 :00 by mouth Center daily. zolpidem Yes 10mg Take [address] (AMBIEN) 10 8-22 by mouth Luke s mg tablet 12:43: every Medical 24 night as Center needed for Insomnia. donepeziL Yes 10mg QD Take [address] (ARICEPT) 8-22 by mouth Lukes 10 MG 12:43: nightly. Medical tablet 24 Center DULoxetine Yes 60mg Q.5D Take [address] (CYMBALTA) 8-22 by mouth 2 Brain es 60 MG 12:43: (two) Medical capsule 24 times Center daily. gabapentin Yes 300mg [id number] Take [address] (NEURONTIN) 8-22 [id number] mg by L ukes 300 MG 12:43: 3D mouth 3 Medical capsule 24 (three) Center times daily. indapamide Yes 2.5mg QD Take 2.[address] (LOZOL) 2.5 8-22 mg by Lukes MG tablet 12:43: mouth Medical 24 every Center morning. memantine Yes 10mg Q.5D Take [address] (NAMENDA) 8-22 by mouth 2 Luke s 10 MG 12:43: (two) Medical tablet 24 times Center daily. metoprolol Yes 25mg QD Take [address] succinate 8-22 by mouth Lukes (TOPROL-XL) 12:43: nightly. Me dical 25 MG 24 hr 24 Center tablet HYDROcodone Yes 1{tbl} Take [address] -acetaminop 8-22 tablet by Brain es hen (NORCO 12:43: mouth 3 Medi jennifer 7.5-325) 24 (three) Center 7.5-325 mg times per tablet daily as needed for Pain. potassium Yes 20meq Q.5D Take [address] chloride 8-22 mEq by Lukes (KLOR-CON) 12:43: mouth 2 Medi jennifer 20 mEq 24 (two) Center packet times daily. QUEtiapine Yes 200mg QD Take [address] (SEROquel) 8-22 mg by Lukes 200 MG 12:43: mouth Medical tablet 24 nightly. Center simvastatin Yes 40mg QD Take [address] (ZOCOR) 40 8-22 by mouth Lukes MG tablet 12:43: nightly. Medi jennifer 24 Center topiramate Yes 200mg Q.5D Take [address] (TOPAMAX) 8-22 mg by Lukes 200 MG 12:43: mouth 2 Medical tablet 24 (two) Center times daily. buPROPion Yes 150mg QD Take [address] (WELLBUTRIN 8-22 mg by Lukes XL) 150 MG 12:43: mouth Medica l 24 hr 24 daily. Center tablet ALPRAZolam Yes .25mg Take 0.[address] (XANAX) 8-22 mg by Lukes 0.25 MG 12:43: mouth Medical tablet 24 every Center night as needed for Anxiety. tiZANidine Yes 4mg QD Take [address] (ZANAFLEX) 8-22 by mouth Lukes 4 MG tablet 12:43: daily. [facility] 24 [place] fluticasone Yes QD Inhale [address] -umeclidin- 8 Inhalation Carol kes vilanter 12:43: by mouth Medic al (Trelegy 24 via Center Ellipta) inhaler 100-62.5-25 daily . mcg DsDv clopidogreL 2020- No 75mg QD Take [address] (PLAVIX) 75 - 08-22 by mouth Brain es mg tablet 10:48: 00:00 daily. Medic al 43 :00 [place] ELIQUIS 5 Yes 5mg Take 5 mg [...] (ELIQUIS) 5 12-09 tablet (5 Carol kes mg Tab 00:00: 23:59 mg total) Medic al tablet 00 :00 by mouth 2 Center (two) times daily. cyanocobala 2021- No 1000ug QD Take [address] min, 12-09 tablet Lukes vitamin 00:00: 23:59 (1,000 mcg Med ical B-12, 1000 00 :00 total) by Cent er MCG tablet mouth daily. flecainide 2021- No 50mg Take [address] (TAMBOCOR) 12-09 tablet (50 Carol kes 50 MG 00:00: 23:59 mg total) Medica l tablet 00 :00 by mouth Center every 12 (twelve) hours. benzonatate 2020- No 100mg Take [address] (TESSALON) 12-09 capsule Lukes 100 MG 00:00: 23:59 (100 mg Medical capsule 00 :00 total) by Center mouth 3 (three) times daily as needed for Cough for up to 7 days. ALPRAZolam Yes Univers 0.25 mg 8-02 ity of tablet 00:00: [place] 00 Medical Branch ALPRAZolam Yes Univers 0.25 mg 8-02 ity of tablet 00:00: [place] Medical [facility] ALPRAZolam Yes Univers 0.25 mg 8-02 ity of tablet 00:00: [place] 00 Medical Branch ALPRAZolam Yes Univers 0.25 mg 8-02 ity of tablet 00:00: [place] Medical [facility] ALPRAZolam Yes Univers 0.25 mg 8-02 ity of tablet 00:00: [place] 00 Medical Branch calcium 2015-04 Yes 2{tbl} Take 2 Univer [...] FIDOBAC/ZAHIRA 2-28 tablet by ity of [place] CON 11:30: mouth 2 [place] (ULTRA 04 [...] FIDOBAC/ZAHIRA 2-28 tablet by ity of [place] CON 11:30: mouth 2 [place] (ULTRA 04 [...] FIDOBAC/ZAHIRA 2-28 tablet by ity of [place] CON 11:30: mouth 2 [place] (ULTRA 04 [...] FIDOBAC/ZAHIRA 2-28 tablet by ity of [place] CON 11:30: mouth 2 [place] (ULTRA 04 [...] [place]ba as tablet 04 (two) Medical times [place] daily. pregabalin 2015-04 Yes 225mg Take 225 Un dhara (LYRICA) 2-28 mg by ity of 225 mg 11:30: mouth 2 [place] capsule 04 (two) Medical times [place] daily. memantine 2015-04 Yes 5mg Take 5 [...] FIDOBAC/ZAHIRA 2-28 tablet by ity of [place] CON 11:30: mouth 2 [place] (ULTRA 04 (two) Medical RODOLFO PLUS times Branch ORAL) daily. Indication s: Ultimate Rodolfo Immunizations Ordered Filled Immunization Date Status Comments Sour e Immunization Name Name SARS-COV-2 COVID-19 2020-07-07 Completed Unive rsity of PFIZER VACCINE 00:00:00 [place] [facility] SARS-COV-2 COVID-19 2020-07-07 Completed Unive rsity of PFIZER VACCINE 00:00:00 [place] [facility] SARS-COV-2 COVID-19 2020-07-07 Completed Unive rsity of PFIZER VACCINE 00:00:00 [facility] SARS-COV-2 COVID-19 2020-07-07 Completed Unive rsity of PFIZER VACCINE 00:00:00 [facility] SARS-COV-2 COVID-19 2020-07-07 Completed Unive rsity of PFIZER VACCINE 00:00:00 [facility] SARS-COV-2 COVID-19 2020-06-16 Completed Unive rsity of PFIZER VACCINE 00:00:00 [facility] SARS-COV-2 COVID-19 2020-06-16 Completed Unive rsity of PFIZER VACCINE 00:00:00 [facility] SARS-COV-2 COVID-19 2020-06-16 Completed Unive rsity of PFIZER VACCINE 00:00:00 [facility] SARS-COV-2 COVID-19 2020-06-16 Completed Unive rsity of PFIZER VACCINE 00:00:00 [facility] SARS-COV-2 COVID-19 2020-06-16 Completed Unive rsity of PFIZER VACCINE 00:00:00 [place] [facility] Vital Signs Vital Name Observation Time Observation Value Comments Source WEIGHT 2020-12-09 06:47:00 97.478 kg WEIGHT 2020-12-03 23:00:00 98.839 kg HEIGHT 2020-12-03 22:25:00 160 cm WEIGHT 2020-12-03 22:25:00 100.562 kg Systolic blood 2021-07-24 19:34:00 115 mm[Hg] Univer sity of pressure [facility] Diastolic blood 2021-07-24 19:34:00 59 mm[Hg] Unive rsity of pressure [facility] Heart rate 2021-07-24 19:34:00 56 /min [facility] Body height 2021-07-24 19:34:00 160 cm [facility] Body weight 2021-07-24 19:34:00 102.513 kg [facility] BMI 2021-07-24 19:34:00 40.03 kg/m2 [facility] WEIGHT 2020-12-09 06:47:00 97.478 kg WEIGHT 2020-12-03 23:00:00 98.839 kg HEIGHT 2020-12-03 22:25:00 160 cm WEIGHT 2020-12-03 22:25:00 100.562 kg Heart rate 2020-12-09 08:01:00 56 /min [facility] Respiratory rate 2020-12-09 08:01:00 16 /min [facility] Oxygen saturation in 2020-12-09 08:01:00 93 /min [facility] Arterial blood by Medical Ce nter Pulse oximetry Systolic blood 2020-12-09 07:00:00 126 mm[Hg] [facility] Diastolic blood 2020-12-09 07:00:00 60 mm[Hg] [facility] Body temperature 2020-12-09 07:00:00 36.61 Genia [facility] Body weight 2020-12-09 06:47:00 97.478 kg [facility] BMI 2020-12-09 06:47:00 38.07 kg/m2 [facility] Body height 2020-12-03 22:25:00 160 cm [facility] Procedures Procedure Date / Time Performing Clinician Source Performed EXTERNAL PROVIDER RECORDS 2021-09-04 05:01:00 Doctor Unassigned, [facility] [place] Medical Branch HOME HEALTH - OTHER 2021-05-31 06:01:00 Doctor Unassigned, [facility] Name Medical Branch HIGH SENSITIVITY TROPONIN 2020-12-08 16:40:00 Pefrecto Diaz [facility] Reshad [place] ECG 12-LEAD 2020-12-08 15:59:02 Unknown, Hl7 Doctor [facility] ECG 12-LEAD 2020-12-08 15:59:02 Unknown, Hl7 Doctor [facility] XR CHEST 1 VIEW PORTABLE / 2020-12-08 07:54:00 Kvng Crane [facility] BEDSIDE D. Center CBC W/PLT COUNT & AUTO 2020-12-08 04:39:00 Himanshu Guillaume [facility] DIFFERENTIAL [facility] BASIC METABOLIC PANEL (7) 2020-12-08 04:39:00 Himanshu Guillaume [facility] Preeya Center CBC W/PLT COUNT & AUTO 2020-12-08 04:39:00 Himanshu Guillaume [facility] DIFFERENTIAL [facility] Center MAGNESIUM 2020-12-08 04:39:00 Himanshu Guillaume [facility] Preeya Center B-TYPE NATRIURETIC FACTOR 2020-12-07 03:34:00 Yoko Crane [facility] (BNP) D. Center XR CHEST 1 VIEW PORTABLE / 2020-12-06 13:03:00 Perfecto Diaz [facility] BASIC METABOLIC PANEL (7) 2020-12-06 11:41:00 Perfecto Diaz [facility] Center MAGNESIUM 2020-12-06 11:41:00 [facility] B-TYPE NATRIURETIC FACTOR 2020-12-06 11:41:00 [facility] (BNP) [facility] ECG 12-LEAD 2020-12-05 10:53:46 Dion Mcdonald [facility] TRANSESOPHAGEAL ECHO 2020-12-05 09:39:19 [facility] W/PLT COUNT & AUTO 2020-12-05 05:17:00 [facility] BASIC METABOLIC PANEL (7) 2020-12-05 05:17:00 Андрей Goetz [facility] HEPATIC FUNCTION PANEL 2020-12-05 05:17:00 [facility] CBC W/PLT COUNT & AUTO 2020-12-05 05:17:00 [facility] CARDI[facility]ERSION 2020-12-05 00:31:19 [facility] S[facility]ITIVITY TROPONIN 2020-12-04 18:35:00 Bishnu, [facility] 2D ECHO W/ DOPPLER 2020-12-04 14:07:13 [facility] (CW/PW/COLOR) [facility] CT CHEST FOR PULMONARY 2020-12-04 05:36:00 [facility] EMBOLUS [facility] XR CHEST 1 VIEW PORTABLE / 2020-12-04 04:08:00 Андрей Goetz [facility] SARS-COV2/RT-PCR ([facility] & 2020-12-04 03:48:00 [facility] CBC W/PLT COUNT & AUTO 2020-12-04 03:41:00 Bishnu, [facility] BASIC METABOLIC PANEL (7) 2020-12-04 03:41:00 [facility]EL 2020-12-04 03:41:00 Bishnu, [facility] CBC W/PLT COUNT & AUTO 2020-12-04 03:41:00 Bishnu, [facility] [place] HIGH SENSITIVITY TROPONIN 2020-12-04 03:41:[address] [facility] B-TYPE NATRIURETIC FACTOR 2020-12-04 03:41:00 Bishnu [facility] (BNP) [facility] CBC W/PLT COUNT & AUTO 2020-12-03 23:21:00 Bishnu, [facility] [place] BASIC METABOLIC PANEL (7) 2020-12-03 23:21:00 Bishnu, [facility] HEPATIC FUNCTION PANEL 2020-12-03 23:21:00 Bishnu [facility] MAGNESIUM 2020-12-03 23:21:00 [facility] PHOS[facility]US 2020-12-03 23:21:00 [facility] PROTHROMBIN TIME/INR 2020-12-03 23:21:00 [facility] CBC W/PLT COUNT & AUTO 2020-12-03 23:21:00 [facility] TSH/FREE T4 IF INDICATED 2020-12-03 23:21:00 [facility] HIGH SENSITIVITY TROPONIN 2020-12-03 23:21:[address] [facility] D-DIMER 2020-12-03 23:21:00 [facility] VITAMIN B12 AND FOLATE 2020-12-03 23:21:00 Bishnu Андрей johnston [facility] ECG 12-LEAD 2020-12-03 23:12:15 Bishnu, Андрей [facility] ECG 12-LEAD 2020-12-03 23:07:40 Unknown, Hl7 Doctor [facility] REPORT OF PROCEDURE - 2020-12-03 00:00:00 Provider, Andrew [facility] ENDOSCOPY SCAN Scanning Center Plan of Care Planned Activity Planned Date Details Comments Source Future Scheduled 2020-12-19 INFLUENZA VACCINE (#1) [facility] Test 00:00:00 [code = INFLUENZA Medical Ce nter VACCINE (#1)] Future Scheduled 2020-04-[address] [facility] Test 00:00:00 (12+) [code = Medical Center DEPRESSION SCREENING (12+)] Future Scheduled 2020-04-20 FALLS RISK SCREENING [facility] Test 00:00:00 [code = FALLS RISK Medical C enter SCREENING] Future Scheduled 2020-04-20 Medicare IPPE (WELCOME [facility] Test 00:00:00 TO MEDICARE) [code = Medical Center Medicare IPPE (WELCOME TO MEDICARE)] Future Scheduled 2006 PNEUMOCOCCAL 65+ YRS [facility] Test 00:00:00 (1 of 1 - Medical Center [id number] PCV13) [code = PNEUMOCOCCAL 65+ YRS (1 of 1 - [id number]_Eparuir PCV13)] Future Scheduled 1991 SHINGLES VACCINES ([address] [facility] Test 00:00:00 of 2) [code = SHINGLES Medic al Center VACCINES (1 of 2)] Future Scheduled 1960-01-25 DTAP/TDAP/TD VACCINES [facility] Test 00:00:00 (1 - Tdap) [code = Medical C enter DTAP/TDAP/TD VACCINES (1 - Tdap)] Future Scheduled 1959 HEPATITIS C SCREENING [facility] Test 00:00:00 [code = HEPATITIS C Medical Center SCREENING] Future Scheduled Hepatitis C screening [facility] Test (procedure) [code = 636982247] Future Scheduled SHINGLES VACCINES (#1) [facility] Test [code = SHINGLES VACCINES (#1)] Future Scheduled 65+ [facility]OCOCCAL [facility] Test VACCINE (1 of 1 - PPSV23) [code = 65+ PNEUMOCOCCAL VACCINE (1 of 1 - PPSV23)] Future Scheduled INFLUENZA VACCINE [facility] Test [code = INFLUENZA VACCINE] Encounters Start End Encounter Admission Attending Care Care Encounter Source Date/Time Date/Time Type Type Clinicians Facility Department ID 2021-10-[address] [facility] [id number] Common 10:58:02 [facility] 2021-10-14 [facility] [id number] Common 08:43:01 [facility] 2021-08-[facility] [id number] Common 16:25:02 [facility] 2021-08-[facility] [id number] Common 14:23:02 [facility] 2021-05-16 Outpatient 3 [id number] ENCPL OTH ENCPL 13:02:17 1006 2021-05-16 Outpatient 3 [id number] ENCPL REF ENCPL 12:59:17 0929 2021-05-[facility] [id number] Common 13:11:24 [id number] [facility] 2020-12-03 Inpatient ER [place] [facility] Cardiology [id number] [facility] 22:07:00 DOMINIQUE 2021-10-23 2021-10-23 [facility] [id number] Common 00:00:00 00:00:00 [facility] 2021-09-04 2021-09-04 Orders Doctor STEPHANIE [id number] Univers 00:00:00 00:00:00 Only UnassignedJANE [id number] ity of [place] [facility] [id number] [place] as [phone] [place] [address] Branch 2021-08-13 2021-08-13 Telephone ABRAN Davidson [id number] [facility] 00:00:00 00:00:00 [facility] [id number] it [facility] [id number] [place] as SABRA?BLEA [phone] Ks cong [facility] [address] MEDICAL OFFICE BUILDING 2021-07-24 2021-07-24 Office Amina NDNOBLE [id number] [facility] 14:30:00 15:15:52 Visit Stefan Bush [facility] [id number] it y of [place] [id number] [place] as SABRA?BLEA [phone] K[place] cong [facility] [address] MEDICAL OFFICE BUILDING 2021-05-31 2021-05-31 Orders Doctor BROWN [id number] Univers 00:00:00 00:00:00 Only Unassigned, JANE [id number] ity of [place] [facility] [id number] [place] as [phone] [address] 2020-12-03 2020-12-09 [facility] Dominique Reynoso [facility] [id number] [facility] 22:07:00 12:43:00 Encounter Андрей Goetz [facility] 2020-12-08 2020-12-08 Orders [facility] [id number] 00:00:00 00:00:00 Only [facility] 2020-12-05 2020-12-05 Outpatient [facility] [id number] [facility] [place] 00:00:00 23:59:00 Shagufta Medicarnie higgins 2020-12-04 2020-12-04 Travel [facility] [id number] [facility] 00:[facility]00 00:00:00 [facility] 2020-08-27 2020-08-27 [facility] 1.2.840.1 [id number] Methodtasha 08:36:31 23:59:00 Encounter Renan [id number] 3.430.2.7 Hospit a .[id number] l .8 2020-07-03 2020-07-03 Office [facility] 1.2.840.1 [id number] Methodi 13:03:28 13:29:49 Visit Renan [id number] 3.430.2.7 Hospit a .[id number] l .8 2020-07-03 2020-07-03 Travel 1.2.840.1 [id number] Methodi 00:00:00 00:00:[id number] 3.430.2.7 [id number] Ho spita .[id number] 084.8 l .8 Results Test Description Test Time Test Comments Results Result Comments Source High Sensitivity Troponin I ([facility]/[place] Only) 2020-12-08 1 7:20:00 Test Item Value Reference Range Interpretation Comme nts Troponin I HS (test 6 pg/ml See_Comment [Aut omated message] The code = 86741-2) system which generated this result tra nsmitted reference range : <=17. The reference r guillaume was not used to int erpret this result as normal/abnormal . GERALD (test code = GERALD) Tracer Bullet Section Supervisor ID - [id number] SOCIAL INSURANCE ANALYST STAT High Sensitivity Troponin-I results should be used in conjunction with other diagnostic information such as ECG, clinical observations and information, and patient symptoms to aid in the diagnosis of [place]. Lab Interpretation (test Normal code = 48808-2) Natividad [facility] TROPONIN [id number] 17:20:00 Test Item Value Reference Range Interpretation Comments HIGH SENSITIVITY 6 pg/ml See_Comment [Automated message] TROPONIN I (test code = The system which 1672397) generated this result transmitted ref erence range: <=17. Th e reference range was not used to interpr et this result as normal/abnormal . Tracer Bullet Section Supervisor ID - DBThe SOCIAL INSURANCE ANALYST STAT High Sensitivity Troponin-I results should be used in conjunctionwith other diagnostic information such as ECG, clinical observations and information, and patient symptoms to aid in the diagnosis of OH.RAD, CHEST, 1 VIEW, NON [id number] 10:23:00Reason for exam:->pulm edemaShould this be performed at the bedside?->Yes [facility] : 1940 Sex: FFINAL REPORT HISTORY: Pulmonary edema COMPARISON: 12/06/2020 FIND INGS: Mild interstitial pulmonary edema. No pleural effusions or pneumothorax. The heart shadow is borderline enlarged. The thoracic aorta is mildly tortuous. There are postoperative changes in the cervical spine. A right shoulder arthroplasty is partially imaged. Signed: Kenia Reneport Verified Date/Time: 12/08/2020 10:23:36 Reading Location: [address] Transitional Reading Room Basic Metabolic [id number] 05:46:00 Test Item Value Reference Range Interpretation Comments Sodium (test code = 140 meq/L 738-028 1431-2) Potassium (test code = 3.4 meq/L 3.5-5.1 L 2823-3) Chloride (test code = 108 meq/L 98-107 H 5-0) CO2 (test code = 25 meq/L 22-29 2027-9) BUN (test code = 11 mg/dL - 3094-0) Creatinine (test code 1.12 mg/dL 0.57-1.25 = 2160-0) Glucose (test code = 113 mg/dL 70-105 H 2345-7) Calcium (test code = 8.9 mg/dL 8.4-10.2 46661-6) EGFR (test code = 47 mL/min/1.73 [place] [address]-3) NOT ACCURATE CREATININE CLEARANCE IN PREDICTING GLOMERULAR FILTRATION RATE . ESTIMATED GFR I S NOT APPLICABLE FOR DIALYSIS PATIENTS. GERALD (test code = GERALD) Tracer Bullet Section Supervisor ID - EMIL M Lab Interpretation Abnormal (test code = 38797-6) [facility] CenterMagnesium[facility] 05:46:00 Test Item Value Reference Range Interpretation Comments Magnesium (test code = 1.7 mg/dL 1.6-2.6 33282-6) GERALD (test code = GERALD) Tracer Bullet Section Supervisor ID Paul Field Lab Interpretation (test Normal code = 89095-1) [facility] CenterBASIC METABOLIC [id number] 05:46:00 Test Item Value Reference Range Interpretation [...] S NOT APPLICABLE FOR DIALYSIS PATIEN TS. Tracer Bullet Section Supervisor ID - EMIL [id number] 05:46:00 Test Item Value Reference Range Interpretation Comments MAGNESIUM (BEAKER) (test code = 1.7 mg/dL 1.6-2.6 627) Tracer Bullet Section Supervisor ID - EMIL MCBC with platelet count + automated [id number] 05:04:00 Test Item Value Reference Range Interpretation Comments WBC (test code = 6690-2) 5.7 See_Comment [A utomated message] The system [employer] generated this result transmitted ref erence range: 3.5 - 10 .5 K/L. The refe rence range was not u sed to interpret this result as normal/abnor mal. RBC (test code = 789-8) 3.85 See_Comment L [Au tomated message] The system [employer] generated this result transmitted ref erence range: 3.93 - 5 .22 M/L. The refe rence range was not u sed to interpret this result as normal/abnor mal. MCHC (test code = 786-4) 30.9 See_Comment L [A utomated message] The system [employer] generated this result transmitted ref erence range: [...] See_Comment [Aut omated message] 777-3) The system [employer] generated this result transmitted ref erence range: 150 - 45 0 K/CU MM. The referen ce range was not u sed to interpret this result as normal/abnor mal. MPV (test code = 9.5 fL 9.4-12.3 63727-4) nRBC (test code = 413) 0 See_Comment [Aut omated message] The system [employer] generated this result transmitted ref erence range: [...] See_Comment [Aut omated message] 670) The system [employer] generated this result transmitted ref erence range: 1.56 - 6 .13 K/L. The refe rence range was not u sed to interpret this result as normal/abnor mal. # Lymphs (test code = 1.83 See_Comment [Auto mated message] 414) The system [employer] generated this result transmitted ref erence range: 1.18 - 3 .74 K/L. The refe rence range was not u sed to interpret this result as normal/abnor mal. # Monos (test code = 0.60 See_Comment H [Autom ated message] 415) The system [employer] generated this result transmitted ref erence range: 0.24 - 0 .36 K/L. The refe rence range was not u sed to interpret this result as normal/abnor mal. # Eos (test code = 416) 0.26 See_Comment [Au tomated message] The system [employer] generated this result transmitted ref erence range: 0.04 - 0 .36 K/L. The refe rence range was not u sed to interpret this result as normal/abnor mal. # Baso (test code = 417) 0.05 See_Comment [A utomated message] The system [employer] generated this result transmitted ref erence range: 0.01 - 0 .08 K/L. The refe rence range was not u sed to interpret this result as normal/abnor mal. Immature 1 % 0-1 Granulocytes-Relative (test code = 2801) Lab Interpretation (test Abnormal code = 09857-1) [facility] W/PLT COUNT & AUTO [id number] 05:04:00 Test Item Value Reference Range Interpretation [...] Range Interpretation Comments BNP (test code = 55858-1) 97 pg/mL 0-100 GERALD (test code = GERALD) Tracer Bullet Section Supervisor ID - PIAYA L Lab Interpretation (test Normal code = 90786-1) [facility] CenterB-TYPE NATRIURETIC FACTOR (BNP)2020-12-07 04:52:00 Test Item Value Reference Range Interpretation Comments B-TYPE NATRIURETIC PEPTIDE (BEAKER) 97 pg/mL 0-100 (test code = 700) Tracer Bullet Section Supervisor ID - PIAYA LRAD, CHEST, 1 VIEW, NON [id number] 14:01:00Reason for exam:->dyspneaShould this be performed at the bedside?->Yes [facility] : 1940 Sex: [...] MDReport Verified Date/Time: 12/06/2020 14:01:32 Reading Location: [facility] Reading Room Electronicallysigned by: LACY DONALD M.D. on 12/06/2020 02:01 PMBAEPHRA[facility] METABOLIC [id number] 12:22:00 Test Item Value Reference Range Interpretation [...] S NOT APPLICABLE FOR DIALYSIS PATIEN TS. Tracer Bullet Section Supervisor ID - [id number] 12:22:00 Test Item Value Reference Range Interpretation Comments MAGNESIUM (BEAKER) (test code = 1.7 mg/dL 1.6-2.6 627) Tracer Bullet Section Supervisor ID - JAYASHREESONB-TYPE NATRIURETIC FACTOR (BNP)2020-12-06 12:13:00 Test Item Value Reference Range Interpretation Comments B-TYPE NATRIURETIC PEPTIDE (BEAKER) 88 pg/mL 0-100 (test code = 700) Tracer Bullet Section Supervisor ID - EMERSONTransesophageal [id number] 21:25:57Ejection FractionSLEH ECHO HEARTLAB MKCKESSON [facility] CenterHepatic function [id number] 06:35:00 Test Item Value Reference Range Interpretation Comments Protein, Total (test 5.4 See_Comment L [Autom ated code = 2885-2) message] The system which generated this result transmit vanesa reference range : 6.0 - 8.3 gm/dL . The reference range was not u sed to interpret th is result as normal/abnormal . Albumin (test code = 2.7 g/dL 3.5-5.0 L 37610-2) Total Bilirubin (test 0.1 mg/dL 0.2-1.2 L code = 1975-2) Bilirubin, Direct 0.1 mg/dL 0.1-0.5 (test code = 1968-7) Alkaline Phosphatase 80 U/L 40-150 (test code = 6768-6) AST (test code = 15 U/L 5-34 1920-8) ALT (test code = 8 U/L 6-55 1742-6) GERALD (test code = GERALD) Tracer Bullet Section Supervisor ID - JENNY L Lab Interpretation Abnormal (test code = 85557-2) [facility] CenterBASIC METABOLIC [id number] 06:35:00 Test Item Value Reference Range Interpretation [...] S NOT APPLICABLE FOR DIALYSIS PATIEN TS. Tracer Bullet Section Supervisor ID - PIAYA LHEPATIC FUNCTION [id number] 06:35:00 Test Item Value Reference Range Interpretation [...] (test code = 8 U/L 6-55 347) Tracer Bullet Section Supervisor ID - PIAYA LCBC W/PLT COUNT & AUTO [id number] 05:44:00 Test Item Value Reference Range Interpretation [...] Comments SARS-COV2/RT-PCR (test Negative Negative code = 70464-7) GERALD (test code = GERALD) Negative result [...] Healthcare Providers:https://www.ric carrillo/bebo/RT SARS-CoV-2 HCP Fact Sheet 51-542450.pdf Fact Sheet for Healthcare Patients:https://www.abdullahi ramirez.campos/bebo/RT SARS-CoV-2 Patient Fact Sheet EN 51-767535P4.pdf Lab Interpretation Normal (test code = 48859-8) [facility] CenterARS-COV2/[facility]-PCR ([facility])2020-12-04 23:22:00 Test Item Value Reference Range Interpretation Comments SARS-COV2/RT-PCR (test code = Negative Negative 7426453) Negative result for this test determines that [...] Healthcare Providers:https://www.molecular.campos/bebo/RT SARS-CoV-2 HCP Fact Sheet 51- 283065.pdfFact Sheet for Healthcare Patients:https://www.molecular.campos/bebo/RT SARS-CoV-2 Patient Fact Sheet EN 51-071698V8.pdfHIGH SENSITIVITY TROPONIN I 2020-12-04 19:21:00 Test Item Value Reference Range Interpretation Comments HIGH SENSITIVITY 8 pg/ml See_Comment [Automated message] TROPONIN I (test code = The system which 4854912) generated this result transmitted ref erence range: <=17. Th e reference range was not used to interpr et this result as normal/abnormal . Tracer Bullet Section Supervisor MARÍA - geri Gifforde SOCIAL INSURANCE ANALYST STAT High Sensitivity Troponin-I results should be used in conjunction with other diagnostic information such as ECG, clinical observations and information, and patient symptoms to aid in the diagnosis of OH.2D Echo W/Doppler(CW/PW/Color)2020-12-04 17:56:11Ejection FractionSLEH ECHO HEARTLAB MKCKESSON CPACSCHI [facility] HospitalCT, CHEST WITH IV CONTRAST- PE TEST [id number] 06:05:00Unlisted Reason for Exam - Click Yes and Enter Reason Below->No [facility] : 1940 Sex: [...] PET/CT, or tissue sampling. Signed: Cosme Alvarez [facility] Verified Date/Time: 12/04/2020 06:05:30 HEPATIC FUNCTION [id number] 06:00:00 Test Item Value Reference Range Interpretation [...] (test code = 7 U/L 6-55 347) Tracer Bullet Section Supervisor MARÍA - EMIL MOperator ID - RUDOLPHSUNDAR LBASIC METABOLIC [id number] 05:13:00 Test Item Value Reference Range Interpretation [...] S NOT APPLICABLE FOR DIALYSIS PATIEN TS. Tracer Bullet Section Supervisor MARÍA - EMIL MVitamin B12 and [id number] 04:44:00 Test Item Value Reference Range Interpretation Comments Vitamin B12 (test 272 pg/mL 213-816 code = 2132-9) Folate (test code = 7.70 ng/mL See_Comment [Automa vanesa 2284-8) message] The system which generated this result transmit vanesa reference range : >=7.00. The reference range was not used to interpret this result as normal/abnormal . GERALD (test code = GERALD) Tracer Bullet Section Supervisor ID - EMIL Field Lab Interpretation Normal (test code = 90833-8) [facility] CenterVITAMIN B12 AND [id number] 04:44:00 Test Item Value Reference Range Interpretation Comments VITAMIN B12 (BEAKER) 272 pg/mL 213-816 (test code = 774) FOLATE (BEAKER) 7.70 ng/mL See_Comment [Automated message] (test code = 362) The system which generated this result transmitted ref erence range: >=7.00. The reference range was not used to interpr et this result as normal/abnormal . Tracer Bullet Section Supervisor ID - EMIL MRAD, CHEST, 1 VIEW, NON [id number] 04:41:00Reason for exam:->afibShould this be performed at the bedside?->Yes [facility] 1940 Sex: FFINAL REPORT EXAM/TECHNIQUE: Single view frontal radiograph of the chest. INDICATION: Atrial fibrillation. COMPARISON: None. FINDINGS: Devices/Objects: None. Lungs: No focal consolidation. No pleural effusion. No pneumothorax. Heart/Mediastinum: No cardiomegaly. Mild interstitial thickening. Osseous: No acute osseous process. No suspicious osseous lesion. Upper abdomen: Unremarkable. Impression: Mild interstitial thickening may represent interstitial pulmonary edema. Signed: Cosme Alvarez MDRyale [facility] Verified Date/Time: 12/04/2020 04:41:03 HIGH SENSITIVITY TROPONIN [id number] 04:36:00 Test Item Value Reference Range Interpretation Comments HIGH SENSITIVITY 8 pg/ml See_Comment [Automated message] TROPONIN I (test code = The system which [id number]) generated this result transmitted ref erence range: <=17. Th e reference range was not used to interpr et this result as normal/abnormal . Tracer Bullet Section Supervisor ID - EMIL MThe SOCIAL INSURANCE ANALYST STAT High Sensitivity Troponin-I results should be used in conjunction with other diagnostic information such as ECG, clinical observations and information, and patient symptoms to aid in the diagnosis of OH.B-TYPE NATRIURETIC FACTOR (BNP)2020-12-04 04:27:00 Test Item Value Reference Range Interpretation Comments B-TYPE NATRIURETIC PEPTIDE (BEAKER) 144 pg/mL 0-100 H (test code = 700) Tracer Bullet Section Supervisor ID - EMIL MCBC W/PLT COUNT & AUTO [id number] 04:01:00 Test Item Value Reference Range Interpretation [...] (test code = 2801) TSH/Free T4 If [id number] 00:19:00 Test Item Value Reference Range Interpretation Comments TSH (test code = 1.723 See_Comment [Automated 06215-8) message] The system which generated this result transmit vanesa reference range : 0.350 - 4.940 uIU/mL. The reference range was not used to interpret this result as normal/abnormal . GERALD (test code = GERALD) Tracer Bullet Section Supervisor ID - JENNY L Lab Interpretation Normal (test code = 98984-0) [facility] CenterTSH/FREE T4 IF [id number] 00:19:00 Test Item Value Reference Range Interpretation Comments THYROID STIMULATING HORMONE 1.723 uIU/mL 0.350-4.940 (BEAKER) (test code = 772) Tracer Bullet Section Supervisor ID - JENNY LHIGH SENSITIVITY TROPONIN [id number] 00:02:00 Test Item Value Reference Range Interpretation Comments HIGH SENSITIVITY 7 pg/ml See_Comment [Automated message] TROPONIN I (test code = The system which 9478696) generated this result transmitted ref erence range: <=17. Th e reference range was not used to interpr et this result as normal/abnormal . Tracer Bullet Section Supervisor ID - SULEIMANhe SOCIAL INSURANCE ANALYST STAT High Sensitivity Troponin-I results should be used in conjunctionwith other diagnostic information such as ECG, clinical observations and information, and patient symptoms to aid in the diagnosis of OH.[id number] 23:58:00 Test Item Value Reference Range Interpretation Comments Phosphorus (test code = 3.3 mg/dL 2.3-4.7 2777-1) GERALD (test code = GERALD) Tracer Bullet Section Supervisor ID - DB Lab Interpretation (test Normal code = 23179-9) [facility] CenterBASI METABOLIC [id number] 23:58:00 Test Item Value Reference Range Interpretation [...] S NOT APPLICABLE FOR DIALYSIS PATIEN TS. Tracer Bullet Section Supervisor ID - [id number] 23:58:00 Test Item Value Reference Range Interpretation Comments MAGNESIUM (BEAKER) (test code = 1.7 mg/dL 1.6-2.6 627) Tracer Bullet Section Supervisor ID - [id number] 23:58:00 Test Item Value Reference Range Interpretation Comments PHOSPHORUS (BEAKER) (test code = 3.3 mg/dL 2.3-4.7 604) Tracer Bullet Section Supervisor ID - DBHEPATIC FUNCTION [id number] 23:58:00 Test Item Value Reference Range Interpretation [...] (test code = 9 U/L 6-55 347) Tracer Bullet Section Supervisor ID - [id number] 23:42:00 Test Item Value Reference Range Interpretation Comments D-Dimer, Quant (test 1.26 See_Comment H [Autom ated code = 77258-0) message] The system which generated this result [...] range. Lab Interpretation Abnormal (test code = 56252-9) [facility] CenterD-[id number] 23:42:00 Test Item Value Reference Range Interpretation [...] of thrombosis is within 95-100% range. Prothrombin time/[id number] 23:39:00 Test Item Value Reference Interpretation Comments [...] valves. Lab Interpretation Abnormal (test code = 94624-8) [facility] CenterPROTHROMBIN TIME/[id number] 23:39:00 Test Item Value Reference Range Interpretation [...] % 0-1 PERCENT (BEAKER) (test code = 0239)
[2021-11-09] MEDS ORDERED: HYDROCODONE/APAP 5/325 MG TAB ONE (00:18)
--- NOTE | 2021-11-09 01:42 | ER ---
Nurse's Notes [facility] Name: Agnes Calabrese Age: 81 yrs Sex: Female : 1940 Arrival Date: 11/09/2021 Time: 00:07 Bed 17 Private MD: Diagnosis: Forehead contusion, facial contusion Presentation: 11/09 00:09 Chief complaint: EMS states: Toned out for fall, pt denies LOC, pt states she was ll3 changing brief on toilet when she leaned too far forward and hit forehead on wall, pt c/o of neck stiffness and soreness to bilateral knees. Coronavirus screen: Vaccine status: Patient reports receiving the 2nd dose of the covid vaccine. At this time, the client does not indicate any symptoms associated with coronavirus-19. Ebola Screen: No symptoms or risks identified at this time. Initial Sepsis Screen: Does the patient meet any 2 criteria? No. Patient's initial sepsis screen is negative. Does the patient have a suspected source of infection? No. Patient's initial sepsis screen is negative. Risk Assessment: Do you want to hurt yourself or someone else? Patient reports no desire to harm self or others. Onset of symptoms was November 09, 2021. Transition of care: patient was received from another setting of care (long-term care facility), [facility]. 00:09 Method Of Arrival: EMS: [facility] ll3 00:09 Acuity: WARREN 3 ll3 Triage Assessment: 00:13 General: Appears uncomfortable, Behavior is calm, cooperative. Pain: Complains of pain ll3 in face Pain currently is 4 out of 10 on a pain scale. Neuro: Level of Consciousness is awake, alert, obeys commands, Oriented to person, place, time, situation. Cardiovascular: Patient's skin is warm and dry. Respiratory: Respiratory effort is even, unlabored, Respiratory pattern is regular, symmetrical. Derm: Skin is pink, warm \T\ dry. Musculoskeletal: Circulation, motion, and sensation intact. Historical: - Allergies: 00:13 clindamycin HCl (bulk); ll3 00:13 Darvocet-N 100; ll3 00:13 PENICILLINS; ll3 00:13 Strawberries; ll3 00:13 Sulfa (Sulfonamide Antibiotics); ll3 - Home Meds: 00:13 Eliquis 5 mg Oral tab 2 times per day [Active]; ll3 00:15 Trelegy Ellipta 100-62.5-25 mcg inhalation dsdv 1 puff once daily [Active]; clopidogrel kd3 75 mg Oral tab 1 tab once daily [Active]; benzonatate 200 mg Oral cap 1 cap 3 times per day [Active]; bupropion HCl 150 mg Oral Tb24 1 tab once daily [Active]; alprazolam 0.25 mg Oral tab 1 tab twice a day for Anxiety [Active]; bupropion HCl 300 mg Oral Tb24 1 tab once daily [Active]; 00:16 donepezil 10 mg Oral tab 1 tab once daily [Active]; Ellura 200 mg Oral cap daily kd3 [Active]; gabapentin 300 mg Oral cap 1 cap 3 times per day [Active]; doxepin 50 mg Oral cap 1 cap once daily [Active]; duloxetine 60 mg Oral cpDR 2 caps once daily [Active]; hydrocodone-acetaminophen 7.5-325 mg Oral tab 1 tab every 8 hours [Active]; indapamide 2.5 mg Oral tab 1 tab once daily [Active]; magnesium oxide 500 mg Oral tab 500 mg after meals and before bedtime [Active]; metoprolol succinate 25 mg Oral Tb24 1 tab once daily [Active]; pantoprazole 40 mg Oral grps 1 packet once daily [Active]; potassium chloride 20 mEq Oral TbER 1 tab 2 times per day [Active]; memantine 10 mg Oral tab 1 tab 2 times per day [Active]; levothyroxine 75 mcg tab 1 tab once daily [Active]; tizanidine 4 mg Oral tab 1 tab daily [Active]; simvastatin 40 mg Oral tab 1 tab once daily [Active]; topiramate 200 mg Oral cp24 1 cap twice a day [Active]; quetiapine 200 mg Oral Tb24 1 tab once daily [Active]; - PMHx: 00:13 Alzheimer's disease; Cancer; GERD; Fibromyalgia; Depression; insomnia; lymphedema; ll3 skipped heart beats; - PSHx: 00:13 Total abdominal hysterectomy; ll3 - Immunization history:: Client reports receiving the 2nd dose of the Covid vaccine. - Social history:: Smoking status: Patient denies any tobacco usage or history of. Screenin:14 Abuse screen: Denies threats or abuse. Denies injuries from another. Nutritional kd3 screening: No deficits noted. Tuberculosis screening: No symptoms or risk factors identified. Fall Risk Fall in past 12 months (25 points). Assessment: 00:14 General: Appears uncomfortable, Behavior is calm, cooperative. Pain: Complains of pain kd3 in face. Neuro: Level of Consciousness is awake, alert, obeys commands, Oriented to person, place, time, situation. Respiratory: Airway is patent Trachea midline Respiratory effort is even, unlabored, Respiratory pattern is regular, symmetrical. 00:14 Injury Description: Bruise sustained to forehead. kd3 Vital Signs: 00:09 BP 139 / 88; Pulse 55; Resp 18; Temp 98.5(O); Pulse Ox 96% on R/A; Weight 88.9 kg (R); ll3 Height 5 ft. 3 in. (160.02 cm) (R); Pain 4/10; 01:35 BP 132 / 77; Pulse 58; Resp 19; Pulse Ox 94% on R/A; kd3 00:09 Body Mass Index 34.72 (88.90 kg, 160.02 cm) ll3 ED Course: 00:07 Patient arrived in ED. kd3 00:08 Grady Bruno MD is Attending Physician. sp3 00:09 Sofie Bautista, DANIEL is Primary Nurse. kd3 00:13 Triage completed. ll3 00:13 Arm band placed on Patient placed in an exam room, on a stretcher, on pulse oximetry. ll3 00:14 Patient has correct armband on for positive identification. kd3 00:14 No provider procedures requiring assistance completed. kd3 01:04 CT Head C Spine In Process Unspecified. EDMS 01:05 Facial Bones W/ Mpr In Process Unspecified. EDMS 02:17 IV discontinued, intact, bleeding controlled, No redness/swelling at site. Pressure ll3 dressing applied. Administered Medications: 00:14 Drug: HYDROcodone-acetaminophen 5 mg-325 mg 2 tabs Route: PO; kd3 Medication: 00:14 VIS not applicable for this client. kd3 Outcome: 01:42 Discharge ordered by . sp3 02:17 Discharged to home via wheelchair, with family. ll3 02:17 Condition: stable 02:17 Discharge instructions given to patient, family, Instructed on discharge instructions, follow up and referral plans. Demonstrated understanding of instructions, follow-up care. 02:18 Patient left the ED. ll3 Signatures: Dispatcher [employer] Grady Sarabia MD MD sp3 Faina Ross RN RN ll3 Sofie Bautista RN RN kd3
--- NOTE | 2021-11-09 01:43 | EDPHYS ---
Physician Documentation [facility] Name: Agnes Calabrese Age: 81 yrs Sex: Female : 1940 Arrival Date: 11/09/2021 Time: 00:07 Bed 17 Private MD: ED Physician Grady Bruno HPI: 11/09 00:32 This 81 yrs old Female presents to ER via EMS with complaints of face and head injury. sp3 00:32 81-year-old female with a history of Alzheimer's disease, cancer history, fibromyalgia sp3 and atrial fibrillation on Eliquis presents to the ED with mechanical fall in her bathroom with injury to forehead and anterior face. Negative LOC, neck pain, chest pain, back pain, shortness of breath, abdominal pain, neurological deficit reported, any other ROS at this time.. Historical: - Allergies: 00:13 clindamycin HCl (bulk); ll3 00:13 Darvocet-N 100; ll3 00:13 PENICILLINS; ll3 00:13 Strawberries; ll3 00:13 Sulfa (Sulfonamide Antibiotics); ll3 - Home Meds: 00:13 Eliquis 5 mg Oral tab 2 times per day [Active]; ll3 00:15 Trelegy Ellipta 100-62.5-25 mcg inhalation dsdv 1 puff once daily [Active]; clopidogrel kd3 75 mg Oral tab 1 tab once daily [Active]; benzonatate 200 mg Oral cap 1 cap 3 times per day [Active]; bupropion HCl 150 mg Oral Tb24 1 tab once daily [Active]; alprazolam 0.25 mg Oral tab 1 tab twice a day for Anxiety [Active]; bupropion HCl 300 mg Oral Tb24 1 tab once daily [Active]; 00:16 donepezil 10 mg Oral tab 1 tab once daily [Active]; Ellura 200 mg Oral cap daily kd3 [Active]; gabapentin 300 mg Oral cap 1 cap 3 times per day [Active]; doxepin 50 mg Oral cap 1 cap once daily [Active]; duloxetine 60 mg Oral cpDR 2 caps once daily [Active]; hydrocodone-acetaminophen 7.5-325 mg Oral tab 1 tab every 8 hours [Active]; indapamide 2.5 mg Oral tab 1 tab once daily [Active]; magnesium oxide 500 mg Oral tab 500 mg after meals and before bedtime [Active]; metoprolol succinate 25 mg Oral Tb24 1 tab once daily [Active]; pantoprazole 40 mg Oral grps 1 packet once daily [Active]; potassium chloride 20 mEq Oral TbER 1 tab 2 times per day [Active]; memantine 10 mg Oral tab 1 tab 2 times per day [Active]; levothyroxine 75 mcg tab 1 tab once daily [Active]; tizanidine 4 mg Oral tab 1 tab daily [Active]; simvastatin 40 mg Oral tab 1 tab once daily [Active]; topiramate 200 mg Oral cp24 1 cap twice a day [Active]; quetiapine 200 mg Oral Tb24 1 tab once daily [Active]; - PMHx: 00:13 Alzheimer's disease; Cancer; GERD; Fibromyalgia; Depression; insomnia; lymphedema; ll3 skipped heart beats; - PSHx: 00:13 Total abdominal hysterectomy; ll3 - Immunization history:: Client reports receiving the 2nd dose of the Covid vaccine. - Social history:: Smoking status: Patient denies any tobacco usage or history of. ROS: 00:33 Constitutional: Negative for fever, chills, and weight loss, Eyes: Negative for injury, sp3 pain, redness, and discharge, ENT: Negative for injury, pain, and discharge, Neck: Negative for injury, pain, and swelling, Cardiovascular: Negative for chest pain, palpitations, and edema, Respiratory: Negative for shortness of breath, cough, wheezing, and pleuritic chest pain, Abdomen/GI: Negative for abdominal pain, nausea, vomiting, diarrhea, and constipation, Back: Negative for injury and pain, MS/Extremity: Negative for injury and deformity, Skin: Negative for injury, rash, and discoloration, Neuro: Negative for headache, weakness, numbness, tingling, and seizure, Psych: Negative for depression, anxiety, suicide ideation, homicidal ideation, and hallucinations, Allergy/Immunology: Negative for hives, rash, and allergies. 00:33 Constitutional: Positive for 00:33 All other systems are negative. Exam: 00:34 Constitutional: This is a well developed, well nourished patient who is awake, alert, sp3 and in no acute distress. Eyes: Pupils equal round and reactive to light, extra-ocular motions intact. Lids and lashes normal. Conjunctiva and sclera are non-icteric and not injected. Cornea within normal limits. Periorbital areas with no swelling, redness, or edema. ENT: Nares patent. No nasal discharge, no septal abnormalities noted. External auditory canals are clear. Oropharynx with no redness, swelling, or masses, exudates, or evidence of obstruction, uvula midline. Mucous membranes moist. Neck: Trachea midline, no thyromegaly or masses palpated, and no cervical lymphadenopathy. Supple, full range of motion without nuchal rigidity, or vertebral point tenderness. No Meningismus. Chest/axilla: Normal chest wall appearance and motion. Nontender with no deformity. No lesions are appreciated. Cardiovascular: Regular rate and rhythm with a normal S1 and S2. No gallops, murmurs, or rubs. Normal PMI, no JVD. No pulse deficits. Respiratory: Lungs have equal breath sounds bilaterally, clear to auscultation and percussion. No rales, rhonchi or wheezes noted. No increased work of breathing, no retractions or nasal flaring. Abdomen/GI: Soft, non-tender, with normal bowel sounds. No distension or tympany. No guarding or rebound. No evidence of tenderness throughout. Back: No spinal tenderness. No costovertebral tenderness. Full range of motion. Skin: Warm, dry with normal turgor. Normal color with no rashes, no lesions, and no evidence of cellulitis. MS/ Extremity: Pulses equal, no cyanosis. Neurovascular intact. Full, normal range of motion. Neuro: Awake and alert, GCS 15, oriented to person, place, time, and situation. Cranial nerves II-XII grossly intact. Motor strength 5/5 in all extremities. Sensory grossly intact. Cerebellar exam normal. Normal gait. Psych: Awake, alert, with orientation to person, place and time. Behavior, mood, and affect are within normal limits. 00:34 Head/face: Patient hand contusion noted on forehead, anterior nose, and right side of face. Remainder of maxillofacial exam is normal Nexus criteria is negative with no distracting injury noted.. Vital Signs: 00:09 BP 139 / 88; Pulse 55; Resp 18; Temp 98.5(O); Pulse Ox 96% on R/A; Weight 88.9 kg (R); ll3 Height 5 ft. 3 in. (160.02 cm) (R); Pain /; 01:35 BP 132 / 77; Pulse 58; Resp 19; Pulse Ox 94% on R/A; kd3 00:09 Body Mass Index 34.72 (88.90 kg, 160.02 cm) ll3 MDM: 00:09 Patient medically screened. sp3 00:34 Data reviewed: vital signs, nurses notes. ED course: 81-year-old female with isolated sp3 injury to the head and face. Patient is completely stable with normal vital signs and normal neurological status. Will obtain CT scan of the head, facial bones, and C-spine and treat pain with p.o. pain control. If work-up is negative, will discharge patient home with general precautions and follow-up with her PCP.. 11/09 00:09 Order name: CT Head C Spine sp3 11/09 00:09 Order name: CT Facial Bones W/O Con sp3 11/09 00:09 Order name: NPO; Complete Time: 00:10 sp3 11/09 00:15 Order name: Facial Bones W/ Mpr EDMS Administered Medications: 00:14 Drug: HYDROcodone-acetaminophen 5 mg-325 mg 2 tabs Route: PO; kd3 Disposition Summary: 11/09/21 01:42 Discharge Ordered Location: Home sp3 Condition: Stable sp3 Diagnosis - Forehead contusion, facial contusion sp3 Followup: sp3 - With: Private Physician - When: Upon discharge from the Emergency Department - Reason: Recheck today's complaints Discharge Instructions: - Discharge Summary Sheet sp3 - Facial or Scalp Contusion sp3 Forms: - Medication Reconciliation Form sp3 - Thank You Letter sp3 - Antibiotic Education sp3 - Prescription Opioid Use sp3 Signatures: Dispatcher [employer] EDMS Grady Bruno MD MD sp3 Faina Ross RN RN ll3 Sofie Bautista RN RN kd3
[2021-11-09 03:21] VITALS: TEMP 98.5
[2021-11-09 03:23] VITALS: BP 132/77; O2SAT 94
--- NOTE | 2021-11-11 10:03 | RAD REPORT ---
EXAM DESCRIPTION: CT - Facial Bones W/ Mpr - 11/09/2021 6:47 am CLINICAL HISTORY: 81 years Female Facial trauma, blunt TECHNIQUE: Axial CT of the facial bones was performed without intravenous contrast with sagittal and coronal reformatted images. The CT study is performed according to ALARA (as low as reasonably achie vable) or ALARA/IMAGE GENTLY, with automatic adjustment of mA and/or kV according to patient size. Performed on: 11/09/2021 and 12:38 AM COMPARISON: Head CT performed on 06/10/2021. FINDINGS: There is mild frontal scalp soft tissue swelling. There is no evidence of acute facial bone fracture. The mandible is intact. The temporomandibular j oints are preserved. There is an old right nasal bone fracture. Both globes are intact and are symmetric. The extraocular muscles and optic nerves are symmetric. T he intraconal fat is preserved. There is no evidence of intraorbital emphysema. There is mild mucosal thickening of the left maxillary sinus. The nasal bones are intact. As noted above, there is an old right nasal bone fracture. The bony nasal septum slightly deviated towards the right. The anterior maxillary spine is intact. Mastoid air cells and middle ear cavities are incompletely visualized on this examination. IMPRESSION: 1. No evidence of acute facial bone fracture. 2. Mild frontal scalp soft tissue swelling. 3. Old right nasal bone fracture. Electronically signed by: Ruth Ann Vivar DO 11/09/2021 1:21 AM CDT Due to temporary technical issues with the PACS/Fluency reporting system, reports are being signed by the in house radiologists without review as a courtesy to insure prompt reporting. The interpreting radiologist is fully responsible for the content of the report.
--- NOTE | 2021-11-11 10:26 | RAD REPORT ---
EXAM DESCRIPTION: CT - Head C Spine Mpr Wo Con - 11/09/2021 6:46 am CLINICAL HISTORY: 81 years Female trauma - head/face injury TECHNIQUE: Multiple axial CT images of the brain and cervical spine were performed followed by sagit rodger and coronal reconstructed images. The CT study is performed according to ALARA (as low as reasona bang achievable) or ALARA/IMAGE GENTLY, with automatic adjustment of mA and/or kV according to patient size. Performed on: 11/09/2021 at 12:46 AM COMPARISON: CT head performed on 06/10/[address] cervical spine report from 11-07. The CT cervical s pine images were not available for review.. FINDINGS: CT HEAD: There is no evidence of mass, acute mass effect or midline shift. There are no acute extra-axial flui d collections. There is no evidence of acute intracranial hemorrhage. The cerebral sulci and ventricles are normal in size and configuration. There are no focal abnormal areas of increased or decreased attenuation. There is mild mucosal thickening of the paranasal sinuses. The mastoid air cells are clear. The orbital contents are grossly unremarkable. No acute osseous abnormalities are identified. There is benign hyperostosis frontalis interna. There is an old right nasal bone fracture. There is mild frontal scalp soft tissue swelling. CT CERVICAL SPINE: There are remote postsurgical changes of the cervical spine consistent with anterior cervical discect adria with fusion from C4 through C7. There is no evidence to suggest hardware failure. The cervical ve rtebrae are normal in height. The cervical vertebrae are grossly normal in alignment considering the presence of surgical hardware. There is slight retrolisthesis of C4 relative to C5 as described previ ously. There is disc spaces above the level of fusion are relatively well preserved in height. There is degenerative spondylosis along the anterior inferior endplate of C3. There is mild disc space narr owing at C7-T1. Bone mineralization is within normal limits. Hhe atlanto-axial articulation is pres erved and the odontoid process is intact. There is normal alignment of the facet joints on the parasagittal images. There are mild degenerative changes of the facet joints. There is no evidence of acute fracture or acute subluxation. There is mild C4-C5 canal stenosis due t o mild retrolisthesis at this level. Otherwise, there is no significant canal stenosis. There is mild bilateral C4-C5 and C5-C6 neural foraminal stenosis secondary to uncovertebral joint hypertrophy. The prevertebral and paraspinal soft tissues are unremarkable. The lung apices are grossly clear IMPRESSION: CT HEAD: 1. No evidence of acute intracranial pathology. 2. Mild frontal scalp soft tissue swelling. 3. Old right nasal bone fracture. CT CERVICAL SPINE: 1. No evidence of acute osseous injury involving the cervical spine. 2. Remote anterior cervical discectomy with fusion from C4 through C7 without evidence of hardware failure. 3. Slight retrolisthesis of C4 relative to C5 as described previously. 4. Mild bilateral neural foraminal stenosis at C4-C5 and C5-C6 secondary to uncovertebral joint hyp ertrophy. Electronically signed by: Ruth Ann Vivar DO 11/09/2021 1:35 AM CDT Due to temporary technical issues with the PACS/Fluency reporting system, reports are being signed by the in house radiologists without review as a courtesy to insure prompt reporting. The interpreting radiologist is fully responsible for the content of the report.
== END 2021-11-09 02:18 | disposition home or self-care (01) ==
LOC: ER 23:57
DX: S00.83XA Contusion of other part of head, initial encounter (principal); G30.9 Alzheimer's disease, unspecified; F02.80 Dementia in other diseases classified elsewhere, unspecified severity, without behavioral disturbance, psychotic disturbance, mood disturbance, and anxiety; F32.A Depression, unspecified; Z79.01 Long term (current) use of anticoagulants; Z88.3 Allergy status to other anti-infective agents; Z88.5 Allergy status to narcotic agent; Z88.0 Allergy status to penicillin; Z88.2 Allergy status to sulfonamides
CPT/HCPCS: 70450; 70486; 72125; 76377; 99284

== ENCOUNTER 2021-12-03 16:35 | Emergency (ER) | payer OTHER ==
--- OUTSIDE RECORDS SUMMARY | 2021-12-03 16:40 | XMS REPORT | Continuity of Care Document ---
:1940 Author Organization [facility] Address [address] [place] [address] Care Team Providers Name Role Phone Farhat HOLT, [place] Primary Care Physician Kenia Torres Attending Clinician Unavailable [id number] Attending Clinician Unavailable KATIE BARRETT Attending Clinician Unavailable Doctor Unassigned, [place] Attending Clinician Unavailable Jonathon Batista Attending Clinician Stefan Huynh MD Attending Clinician Katie Barrett MD Attending Clinician [phone] Arielle Goetz MD Attending Clinician Shelton Ferreira MD Attending Clinician Joe HOLT, Perfecto Mckeon Attending Clinician [phone] Renan Canela MD Attending Clinician [id number] Admitting Clinician Unavailable KATIE BARRETT Admitting Clinician Unavailable ARIELLE GOETZ Admitting Clinician Unavailable Payers Payer Name Policy Type Policy Number Effective Date Expiration Date S janette Problems Condition Condition Condition Status Onset Resolution Last Treating Co mments Source Name Details Category Date Date Treatment Clinician Date Atrial Atrial Disease Active [facility] fibrill[facility] 8-16 Carol kes on with on with 00:00: Medical RVR RVR 00 Center 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 Natural father Diabetes [facility] mother Asthma [facility] Social History Social Habit Start Date Stop Date Quantity Comments Source History SDOH [facility] Alcohol Std Drinks Medica l Center History SDOH [facility] Alcohol Binge Medical Dagoberto ter History SDOH [facility] Alcohol Comment Medical C enter History of tobacco Smoker Method ist Hospital use Exposure to 2021-06-24 2021-07-24 Not sure [facility] SARS-CoV-2 (event) 00:00:00 14:26:00 Medica l Branch Alcohol intake 2021-07-24 2021-07-24 0 /d [facility] 00:00:00 00:00:00 Medical [place] Tobacco use and 2020-12-03 2020-12-[address] Carol kes exposure 00:00:00 00:00:00 Medical Center History SDOH 2020-12-03 2020-12-[address] [facility] Alcohol Frequency 00:00:00 00:00:00 [facility] Cigarettes smoked 2019-10-18 2019-10-18 [facility] current (pack per 00:00:00 00:00:00 day) - Reported Cigarette 2019-10-18 2019-10-18 [facility] pack-years 00:00:00 00:00:00 Sex Ass[birth year] [facility] 00:00:00 00:00:00 [facility] Smoking Status Start Date Stop Date Source Never smoker [facility] Former smoker 2019-10-18 00:00:00 2019-10-18 00:00:00 [facility] Medications Ordered Filled Start Stop Current Ordering Indication Dosage Frequency Signature Comments Components Source Medication Medication Date Date Medication? Clinician (SIG) Name Name buPROPion Yes Univers XL 150 mg 8-26 ity of 24 hr 00:00: [place] tablet [facility] buPROPion Yes Univers XL 150 mg 8-26 ity of 24 hr 00:00: [place] tablet 00 [facility] buPROPion Yes Univers XL 150 mg 8-26 ity of 24 hr 00:00: [place] tablet 00 [facility] buPROPion Yes Univers XL 150 mg 8-26 ity of 24 hr 00:00: [place] tablet 00 [facility] buPROPion Yes Univers XL 150 mg 8-26 ity of 24 hr 00:00: [place] tablet 00 [facility] furosemide 2021- No 20mg QD Take [address] (LASIX) 20 8-23 08-23 tablet (20 Carol kes MG tablet [...] 24 times Center daily. gabapentin Yes 300mg [id number] Take [address] (NEURONTIN) 8-22 [id number] mg by L ukes 300 MG 12:43: [...] by mouth Lukes MG tablet 12:43: nightly. [facility] [address] [place] topiramate Yes 200mg Q.5D Take 200 CH [...] mouth Lukes 4 MG tablet 12:43: daily. [address] fluticasone Yes QD Inhale [address] -umeclidin- 12-09 Inhalation Carol kes vilanter 12:43: by mouth Medic al (Trelegy 24 via Center Ellipta) inhaler 100-62.5-25 daily . mcg DsDv clopidogreL 2020- 75mg QD Take [address] (PLAVIX) 75 -09 12-22 by mouth Brain es mg tablet 10:48: 00:00 daily. Medic al 43 :00 [place] ELIQUIS 5 Yes 5mg Take 5 mg [...] 8-02 ity of tablet 00:00: [place] 00 [facility] ALPRAZolam 0 Yes Univers 0.25 mg 8-02 ity of tablet 00:00: [place] [facility] ALPRAZolam Yes Univers 0.25 mg 8-02 ity of tablet 00:00: [place] [facility] ALPRAZolam Yes Univers 0.25 mg 8-02 ity of tablet 00:00: [place] 00 [facility] ALPRAZolam Yes Univers 0.25 mg 8-02 ity of tablet 00:00: [place] 00 [facility] calcium 2015-04 Yes 2{tbl} Take 2 [...] FIDOBAC/ZAHIRA 2-28 tablet by ity of B [place] CON 11:30: mouth 2 [place] (ULTRA 04 [...] FIDOBAC/ZAHIRA 2-28 tablet by ity of B [place] CON 11:30: mouth 2 [place] (ULTRA 04 [...] FIDOBAC/ZAHIRA 2-28 tablet by ity of B UT CON 11:30: mouth 2 [place] (ULTRA 04 [...] FIDOBAC/ZAHIRA 2-28 tablet by ity of B UT CON 11:30: mouth 2 [place] (ULTRA 04 [...] Simba as tablet 04 (two) Medical times [place] daily. pregabalin 2015-04 Yes 225mg Take 225 Un dhara (LYRICA) 2-28 mg by ity of 225 mg 11:30: mouth 2 [place] capsule 04 (two) Medical times [place] daily. memantine 2015-04 Yes 5mg Take 5 [...] FIDOBAC/ZAHIRA 2-28 tablet by ity of B [place] CON 11:30: mouth 2 [place] (ULTRA 04 (two) Medical RODOLFO PLUS times Branch ORAL) daily. Indication s: Ultimate Rodolfo Immunizations Ordered Filled Immunization Date Status Comments [facility] e Immunization Name Name SARS-COV-2 COVID-19 2020-07-07 Completed Unive rsity of PFIZER VACCINE 00:00:00 [facility] [place] [facility] SARS-COV-2 COVID-19 2020-07-07 Completed Unive rsity of PFIZER VACCINE 00:00:00 [facility] SARS-COV-2 COVID-19 2020-07-07 Completed Unive rsity of PFIZER VACCINE 00:00:00 [facility] SARS-COV-2 COVID-19 2020-07-07 Completed Unive rsity of PFIZER VACCINE 00:00:00 [facility] SARS-COV-2 COVID-19 2020-07-07 Completed Unive rsity of PFIZER VACCINE 00:00:00 [facility] SARS-COV-2 COVID-19 2020-06-16 Completed Unive rsity of PFIZER VACCINE 00:00:00 [facility] SARS-COV-2 COVID-19 2020-06-16 Completed Unive rsity of PFIZER VACCINE 00:00:00 [facility] SARS-COV-2 COVID-19 2020-06-16 Completed Unive rsity of PFIZER VACCINE 00:00:00 [facility] SARS-COV-2 COVID-19 2020-06-16 Completed Unive rsity of PFIZER VACCINE 00:00:00 [facility] SARS-COV-2 COVID-19 2020-06-16 Completed Unive rsity of PFIZER VACCINE 00:00:00 [facility] Vital Signs Vital Name Observation Time Observation Value Comments Source WEIGHT 2020-12-09 06:47:00 97.478 kg WEIGHT 2020-12-03 23:00:00 98.839 kg HEIGHT 2020-12-03 22:25:00 160 cm WEIGHT 2020-12-03 22:25:00 100.562 kg Systolic blood 2021-07-24 19:34:00 115 mm[Hg] Univer sity of pressure [facility] Diastolic blood 2021-07-24 19:34:00 59 mm[Hg] Unive rsity of pressure [facility] Heart rate 2021-07-24 19:34:00 56 /min General acute hospital Body height 2021-07-24 19:34:00 160 cm General acute hospital Body weight 2021-07-24 19:34:00 102.513 kg General acute hospital BMI 2021-07-24 19:34:00 40.03 kg/m2 General acute hospital WEIGHT 2020-12-09 06:47:00 97.478 kg WEIGHT 2020-12-03 23:00:00 98.839 kg HEIGHT 2020-12-03 22:25:00 160 cm WEIGHT 2020-12-03 22:25:00 100.562 kg Heart rate 2020-12-09 08:01:00 56 /min [facility] Respiratory rate 2020-12-09 08:01:00 16 /min [facility] Oxygen saturation in 2020-12-09 08:01:00 93 /min [facility] Arterial blood by Medical Ce nter Pulse oximetry Systolic blood 2020-12-09 07:00:00 126 mm[Hg] [facility] Diastolic blood 2020-12-09 07:00:00 60 mm[Hg] [facility] Body temperature 2020-12-09 07:00:00 36.61 Genia [facility] Body weight 2020-12-09 06:47:00 97.478 kg [facility] BMI 2020-12-09 06:47:00 38.07 kg/m2 [facility] Body height 2020-12-03 22:25:00 160 cm [facility] Procedures Procedure Date / Time Performing Clinician Source Performed EXTERNAL PROVIDER RECORDS 2021-09-04 05:01:00 Doctor Unassigned, [facility] [place] Medical Branch HOME HEALTH - OTHER 2021-05-31 06:01:00 Doctor Unassigned, [facility] Name Medical [place] HIGH SENSITIVITY TROPONIN 2020-12-08 16:40:00 Perefcto Diaz [facility] Reshad [place] ECG 12-LEAD 2020-12-08 15:59:02 Unknown, Hl7 Doctor [facility] ECG 12-LEAD 2020-12-08 15:59:02 Unknown, Hl7 Doctor [facility] XR CHEST 1 VIEW PORTABLE / 2020-12-08 07:54:00 Kvng Crane [facility] BEDSIDE D. Center CBC W/PLT COUNT & AUTO 2020-12-08 04:39:00 Himanshu Guillaume [facility] DIFFERENTIAL [place] BASIC METABOLIC PANEL (7) 2020-12-08 04:39:00 Himanshu Guillaume [facility] Preeya Center CBC W/PLT COUNT & AUTO 2020-12-08 04:39:00 Himanshu Guillaume [facility] DIFFERENTIAL Preeya Center MAGNESIUM 2020-12-08 04:39:00 Himanshu Guillaume [facility] Preeya [place] B-TYPE NATRIURETIC FACTOR 2020-12-07 03:34:00 Yoko Crane [facility] (BNP) [facility] XR CHEST 1 VIEW PORTABLE / 2020-12-06 13:03:00 Perfecto Diaz [facility] BEDSIDE [facility] BASIC METABOLIC PANEL (7) 2020-12-06 11:41:00 Perfecto Diaz [facility] MAGNESIUM 2020-12-06 11:41:00 JoePerfecto [facility] B-TYPE NATRIURETIC FACTOR 2020-12-06 11:41:00 [facility] (BNP) [facility] ECG 12-LEAD 2020-12-05 10:53:46 Dion Mcdonald [facility] TRANSESOPHAGEAL ECHO 2020-12-05 09:39:19 [facility] W/[facility]T COUNT & AUTO 2020-12-05 05:17:00 [facility]IC MET[facility]OLIC PANEL (7) 2020-12-05 05:17:00 Bishnu [facility] HEPATIC FUNCTION PANEL 2020-12-05 05:17:00 [facility] W/PLT COUNT & AUTO 2020-12-05 05:17:00 [facility] CARDI[facility]ERSION 2020-12-05 00:31:19 Malu [facility] HIGH SENSITIVITY TROPONIN 2020-12-04 18:35:00 Bishnu, [facility] 2D ECHO W/ DOPPLER 2020-12-04 14:07:13 Clint Malave [facility] (CW/PW/COLOR) [facility] CT CHEST FOR PULMONARY 2020-12-04 05:36:00 [facility] XR CHEST 1 VIEW PORTABLE / 2020-12-04 04:08:00 Arielle Goetz [facility] SARS-COV2/RT-PCR ([facility] & 2020-12-04 03:48:00 [facility] CBC W/PLT COUNT & AUTO 2020-12-04 03:41:00 [facility] BASIC METABOLIC PANEL (7) 2020-12-04 03:41:00 Bishnu, [facility] HEPATIC FUNCTION PANEL 2020-12-04 03:41:00 [facility] CBC W/PLT COUNT & AUTO 2020-12-04 03:41:00 [facility] HIGH SENSITIVITY TROPONIN 2020-12-04 03:41:00 Bishnu [facility] B-TYPE NATRIURETIC FACTOR 2020-12-04 03:41:00 Bishnu [facility] (BNP) [facility] CBC W/PLT COUNT & AUTO 2020-12-03 23:21:00 [facility] BASIC METABOLIC PANEL (7) 2020-12-03 23:21:00 Bishnu, [facility] HEPATIC FUNCTION PANEL 2020-12-03 23:21:00 [facility] MAGNESIUM 2020-12-03 23:21:00 Bishnu [facility] PHOSPHORUS 2020-12-03 23:21:00 Bishnu, [facility] PROTHROMBIN TIME/INR 2020-12-03 23:21:[facility] W/PLT COUNT & AUTO 2020-12-03 23:21:00 [facility] TSH/FREE T4 IF INDICATED 2020-12-03 23:21:00 [facility] HIGH SENSITIVITY TROPONIN 2020-12-03 23:21:00 BishnuArielle barth [facility] D-DIMER 2020-12-03 23:21:00 BishnuArielle barth [facility] VITAMIN B12 AND FOLATE 2020-12-03 23:21:00 Arielle Goetz [facility] S [facility] ECG 12-LEAD 2020-12-03 23:12:15 BishnuArielle murphy [facility] ECG 12-LEAD 2020-12-03 23:07:40 Unknown, Hl7 Doctor [facility] REPORT OF PROCEDURE - 2020-12-03 00:00:00 Provider, Andrew [facility] ENDOSCOPY SCAN Scanning Center Plan of [...] 00:00:00 (1 of 1 - Medical Center [id number] PCV13) [code = PNEUMOCOCCAL 65+ YRS (1 of 1 - [id number]_Nlluszz PCV13)] Future Scheduled 1990 SHINGLES VACCINES (1 [...] [facility] Test (procedure) [code = 844677245] Future Scheduled SHINGLES VACCINES (#1) M ethodist [...] Facility Department ID 2021-10-23 Outpatient Kenia Torres [facility] ST[facility] [id number] Common 10:58:02 [facility] 2021-10-14 Outpatient Kenia Torres [facility] [id number] Common 08:43:01 [facility] 2021-08-26 Outpatient [facility] [id number] Common 16:25:02 [facility] 2021-08-21 Outpatient [facility] [id number] Common 14:23:02 [facility] 2021-05-16 Outpatient 3 [id number] ENCPL [facility] ENCPL 13:02:17 1006 2021-05-16 Outpatient 3 [id number] ENCPL REF [id number] ENCPL 12:59:17 0929 2021-05-15 Outpatient [facility] ST[facility] [id number] Common 13:11:24 [id number] [facility] 2020-12-03 Inpatient ER [facility] Card[facility] [id number] 22:07:00 KATIE 2021-11-27 2021-11-27 ambulatory STLMLC STLMLC [id number] Common 00:00:00 00:00:00 [facility] 2021-11-06 2021-11-06 ambulatory STLMLC STLMLC [id number] Common 00:00:00 00:00:00 [facility] 2021-10-23 2021-10-23 ambulatory STLMLC STLMLC [id number] Common 00:00:00 00:00:00 Spirit - [facility] 2021-09-04 2021-09-04 Orders Doctor STEPHANIE [id number] Univers 00:00:00 00:00:00 Only Unassigned, JANE 350.1.13.10 ity of [place] [facility] 4.2.7.2.686 Simba as [phone] [address] 2021-08-13 2021-08-13 Telephone [facility] [id number] Univers 00:00:00 00:00:00 Jonathon [facility] 350.1.13.10 it [facility] 4.2.7.2.686 [place] as SABRA?BLEA [id number] Ga dical [address] MEDICAL OFFICE BUILDING 2021-07-24 2021-07-24 Office [facility] [id number] Univers 14:30:00 15:15:52 Visit Stefan [facility] 350.1.13.10 it [facility] 4.2.7.2.686 [place] as SABRA?BLEA [phone] Ga dical [address] MEDICAL OFFICE BUILDING 2021-05-31 2021-05-31 Orders Doctor STEPHANIE [id number] Univers 00:00:00 00:00:00 Only Unassigned, JANE 350.1.13.10 ity of [place] [facility] 4.2.7.2.686 [place] as [phone] [address] 2020-12-03 2020-12-09 [facility] Katie Reynoso [facility] [id number] [facility] 22:07:00 12:43:00 Encounter Arielle Goetz, [facility] 2020-12-08 2020-12-[address] [facility] [id number] [facility] 00:00:00 00:00:00 Only [facility] 2020-12-05 2020-12-05 Outpatient [facility] [id number] [facility] 00:00:00 23:59:00 Saumya 2020-12-04 2020-12-04 Travel [facility] [id number] [facility] 00:00:00 00:00:00 [facility] 2020-08-27 2020-08-27 Hospital Canela, 1.2.840.1 [id number] Methodi 08:36:31 23:59:00 Encounter Renan [id number] 3.430.2.7 Hospit a .3.831326 l .8 2020-07-03 2020-07-03 Office [facility], 1.2.840.1 [id number] Methodi 13:03:28 13:29:49 Visit Renan [id number] 3.430.2.7 Hospit a .3.987685 l .8 2020-07-03 2020-07-03 Travel 1.2.840.1 [id number] Methodi 00:00:00 00:00:[id number] 3.430.2.7 0.2.7.3.698 Ho spita .3.737517 084.8 l .8 Results Test Description Test Time Test Comments Results Result Comments Source High Sensitivity Troponin I ([facility] Only) 2020-12-08 1 7:20:00 Test Item Value Reference Range Interpretation Comme nts Troponin I HS (test code 6 pg/ml See_Comment [A utomated message] The = 88537-3) system which ge nerated this result tra nsmitted reference range : <=17. The reference r guillaume was not used to int erpret this result as normal/abnormal . GERALD (test code = GERALD) Prosthetics Lab Technician ID - DBThe STOCK UNLOADER STAT High Sensitivity Troponin-I results should be used in conjunction with other diagnostic information such as ECG, clinical observations and information, and patient symptoms to aid in the diagnosis of [place]. Lab Interpretation (test Normal code = 75412-3) [facility] TROPONIN [id number] 17:20:00 Test Item Value Reference Range Interpretation Comments HIGH SENSITIVITY 6 pg/ml See_Comment [Automated message] TROPONIN I (test code = The system which 3807491) generated this result transmitted ref erence range: <=17. Th e reference range was not used to interpr et this result as normal/abnormal . Prosthetics Lab Technician ID - DBThe STOCK UNLOADER STAT High Sensitivity Troponin-I results should be used in conjunctionwith other diagnostic information such as ECG, clinical observations and information, and patient symptoms to aid in the diagnosis of [place].RAD, CHEST, 1 VIEW, NON [id number] 10:23:00Reason for exam:->pulm edemaShould this be performed at the bedside?->Yes [facility] 1940 Sex: FFINAL REPORT HISTORY: Pulmonary edema COMPARISON: 12/06/2020 FINDINGS: Mild interstitial pulmonary edema. No pleural effusions or pneumothorax. The heart shadow is borderline enlarged. The thoracic aorta is mildly tortuous. There are postoperative changes in the cervical spine. A right shoulder arthroplasty is partially imaged. Signed: Kenia Ren [facility] Verified Date/Time: 12/08/2020 10:23:36 Reading Location: [address] Transitional Reading Room Basic Metabolic [id number] 05:46:00 Test Item Value Reference Range Interpretation Comments Sodium (test code = 140 meq/L 574-819 8942-2) Potassium (test code = 3.4 meq/L 3.5-5.1 L 2823-3) Chloride (test code = 108 meq/L 98-107 H 2074-0) CO2 (test code = 25 meq/L -29 2028-9) BUN (test code = 11 mg/dL 7-21 3094-0) Creatinine (test code 1.12 mg/dL 0.57-1.25 = 2160-0) Glucose (test code = 113 mg/dL 70-105 H 2345-7) Calcium (test code = 8.9 mg/dL 8.4-10.2 72846-7) EGFR (test code = 47 mL/min/1.73 [place] [address]-0) NOT ACCURATE CREATININE CLEARANCE IN PREDICTING GLOMERULAR FILTRATION RATE . ESTIMATED GFR I S NOT APPLICABLE FOR DIALYSIS PATIENTS. GERALD (test code = GERALD) Prosthetics Lab Technician ID - EMIL M Lab Interpretation Abnormal (test code = 25198-0) [facility] Center[facility]esium2021-08-21 05:46:00 Test Item Value Reference Range Interpretation Comments Magnesium (test code = 1.7 mg/dL 1.6-2.6 18370-7) GERALD (test code = GERALD) Prosthetics Lab Technician ID - EMIL M Lab Interpretation (test Normal code = 02797-6) [facility] Center[facility]IC METABOLIC [id number] 05:46:00 Test Item Value Reference Range Interpretation [...] S NOT APPLICABLE FOR DIALYSIS PATIEN TS. Prosthetics Lab Technician ID - EMIL [id number] 05:46:00 Test Item Value Reference Range Interpretation Comments MAGNESIUM (BEAKER) (test code = 1.7 mg/dL 1.6-2.6 627) Prosthetics Lab Technician ID - EMIL MCBC with platelet count + automated [id number] 05:04:00 Test Item Value Reference Range Interpretation Comments WBC (test code = 6690-2) 5.7 See_Comment [A utomated message] The system [email or web address] generated this result transmitted ref erence range: 3.5 - 10 .5 K/L. The refe rence range was not u sed to interpret this result as normal/abnor mal. RBC (test code = 789-8) 3.85 See_Comment L [Au tomated message] The system [email or web address] generated this result transmitted ref erence range: 3.93 - 5 .22 M/L. The refe rence range was not u sed to interpret this result as normal/abnor mal. MCHC (test code = 786-4) 30.9 See_Comment L [A utomated message] The system [email or web address] generated this result transmitted ref erence range: [...] See_Comment [Aut omated message] 777-3) The system [email or web address] generated this result transmitted ref erence range: 150 - 45 0 K/CU MM. The referen ce range was not u sed to interpret this result as normal/abnor mal. MPV (test code = 9.5 fL 9.4-12.3 85534-0) nRBC (test code = 413) 0 See_Comment [Aut omated message] The system [email or web address] generated this result transmitted ref erence range: [...] See_Comment [Aut omated message] 670) The system [email or web address] generated this result transmitted ref erence range: 1.56 - 6 .13 K/L. The refe rence range was not u sed to interpret this result as normal/abnor mal. # Lymphs (test code = 1.83 See_Comment [Auto mated message] 414) The system [email or web address] generated this result transmitted ref erence range: 1.18 - 3 .74 K/L. The refe rence range was not u sed to interpret this result as normal/abnor mal. # Monos (test code = 0.60 See_Comment H [Autom ated message] 415) The system [email or web address] generated this result transmitted ref erence range: 0.24 - 0 .36 K/L. The refe rence range was not u sed to interpret this result as normal/abnor mal. # Eos (test code = 416) 0.26 See_Comment [Au tomated message] The system [email or web address] generated this result transmitted ref erence range: 0.04 - 0 .36 K/L. The refe rence range was not u sed to interpret this result as normal/abnor mal. # Baso (test code = 417) 0.05 See_Comment [A utomated message] The system [email or web address] generated this result transmitted ref erence range: 0.01 - 0 .08 K/L. The refe rence range was not u sed to interpret this result as normal/abnor mal. Immature 1 % 0-1 Granulocytes-Relative (test code = 2801) Lab Interpretation (test Abnormal code = 55443-2) [facility] W/PLT COUNT & AUTO [id number] 05:04:00 Test Item Value Reference Range Interpretation [...] Range Interpretation Comments BNP (test code = 11910-4) 97 pg/mL 0-100 GERALD (test code = GERALD) Prosthetics Lab Technician ID - PIAYA L Lab Interpretation (test Normal code = 75205-4) [facility] CenterB-TYPE NATRIURETIC FACTOR (BNP)2020-12-07 04:52:00 Test Item Value Reference Range Interpretation Comments B-TYPE NATRIURETIC PEPTIDE (BEAKER) 97 pg/mL 0-100 (test code = 700) Prosthetics Lab Technician ID - PIAYA LRAD, CHEST, 1 VIEW, NON [id number] 14:01:00Reason for exam:->dyspneaShould this be performed at the bedside?->Yes [facility] 1940 Sex: FFINAL REPORT CLINICAL HISTORY: dyspnea TECHNIQUE: 1 view of the chest. COMPARISON: 12/04/2020 IMPRESSION: Pulmonary vascular congestion is again seen with slightly increased prominence of the interstitial lung markings bilaterally. There is no focal lobar consolidation or significantpleural fluid. The cardiomediastinal silhouette is magnified by technique. Cervical fusion hardware right shoulder hardware is again seen. Signed: Lacy Donald MDReport Verified Date/Time: 12/06/2020 14:01:32 Reading Location: [facility] Radiology Reading Room BASI METABOLIC [id number] 12:22:00 Test Item Value Reference Range Interpretation [...] S NOT APPLICABLE FOR DIALYSIS PATIEN TS. Prosthetics Lab Technician ID - [id number] 12:22:00 Test Item Value Reference Range Interpretation Comments MAGNESIUM (BEAKER) (test code = 1.7 mg/dL 1.6-2.6 627) Prosthetics Lab Technician ID - JAYASHREESONB-TYPE NATRIURETIC FACTOR (BNP)2020-12-06 12:13:00 Test Item Value Reference Range Interpretation Comments B-TYPE NATRIURETIC PEPTIDE (BEAKER) 88 pg/mL 0-100 (test code = 700) Prosthetics Lab Technician ID - EMERSONTransesophageal [id number] 21:25:57Ejection FractionSLEH ECHO HEARTLAB MKCKESSON [facility] CenterHepatic function [id number] 06:35:00 Test Item Value Reference Range Interpretation Comments Protein, Total (test 5.4 See_Comment L [Autom ated code = 2885-2) message] The system which generated this result transmit fior reference range : 6.0 - 8.3 gm/dL . The reference range was not u sed to interpret th is result as normal/abnormal . Albumin (test code = 2.7 g/dL 3.5-5.0 L 74877-0) Total Bilirubin (test 0.1 mg/dL 0.2-1.2 L code = 1975-2) Bilirubin, Direct 0.1 mg/dL 0.1-0.5 (test code = 1968-7) Alkaline Phosphatase 80 U/L 40-150 (test code = 6768-6) AST (test code = 15 U/L 5-34 1920-8) ALT (test code = 8 U/L 6-55 1742-6) GERALD (test code = GERALD) Prosthetics Lab Technician ID Paul Bush Lab Interpretation Abnormal (test code = 79478-4) [facility] [id number] 06:35:00 Test Item Value Reference Range Interpretation [...] S NOT APPLICABLE FOR DIALYSIS PATIEN TS. Prosthetics Lab Technician ID - JENNY LHEPATIC FUNCTION [id number] 06:35:00 Test Item Value Reference Range Interpretation [...] (test code = 8 U/L 6-55 347) Prosthetics Lab Technician ID - PIAYA LCBC W/PLT COUNT & AUTO [id number] 05:44:00 Test Item Value Reference Range Interpretation [...] Comments SARS-COV2/RT-PCR (test Negative Negative code = 37340-3) GERALD (test code = GERALD) Negative result [...] the Act. Testing was performed using the GLIIF SARS-CoV-2 assay. Fact Sheet for Healthcare Providers:https://www.ric carrillo/bebo/RT SARS-CoV-2 HCP Fact Sheet 51-520546.pdf Fact Sheet for Healthcare Patients:https://www.mo lecular.noel/bebo/RT SARS-CoV-2 Patient Fact Sheet EN 51-369768T6.pdf Lab Interpretation Normal (test code = 53316-2) [facility]2020-12-04 23:22:00 Test Item Value Reference Range Interpretation Comments SARS-COV2/RT-PCR (test code = Negative Negative 6427703) Negative result for this test determines that [...] under Section 564(g) of the Act.Testing was performed using [employer] l[employer] GLIIF SARS-CoV-2 assay.Fact Sheet for Healthcare Providers:https://www.Calcivis.noel/bebo/RT SARS-CoV-2 HCP Fact Sheet 51- 879526.pdfFact Sheet for Healthcare Patients:https://www.Calcivis.noel/bebo/RT SARS-CoV-2 Patient Fact Sheet EN 51-503371J9.pdfHIGH SENSITIVITY TROPONIN I 2020-12-04 19:21:00 Test Item Value Reference Range Interpretation Comments HIGH SENSITIVITY 8 pg/ml See_Comment [Automated message] TROPONIN I (test code = The system which 2893627) generated this result transmitted ref erence range: <=17. Th e reference range was not used to interpr et this result as normal/abnormal . Prosthetics Lab Technician ID - geri Mann STOCK UNLOADER STAT High Sensitivity Troponin-I results should be used in conjunction with other diagnostic information such as ECG, clinical observations and information, and patient symptoms to aid in the diagnosis of [place].2D Echo W/Doppler(CW/PW/Color)2020-12-04 17:56:11Ejection FractionSLEH ECHO HEARTLAB MKCKESSON [facility] CenterCT, CHEST WITH IV CONTRAST- PE TEST [id number] 06:05:00Unlisted Reason for Exam - Click Yes and Enter Reason Below->No [facility] : 1940 Sex: FFINAL REPORT EXAM/TECHNIQUE: CT [...] PET/CT, or tissue sampling. Signed: Cosme Alvarez MDReport Verified Date/Time: 12/04/2020 06:05:30 [facility] / NHRMCEPATIC FUNCTION [id number] 06:00:00 Test Item Value Reference Range Interpretation [...] (test code = 7 U/L 6-55 347) Prosthetics Lab Technician ID - EMIL MOperator ID - PIAYA LBASIC METABOLIC [id number] 05:13:00 Test Item Value Reference Range Interpretation [...] S NOT APPLICABLE FOR DIALYSIS PATIEN TS. Prosthetics Lab Technician ID - EMIL MVitamin B12 and [id number] 04:44:00 Test Item Value Reference Range Interpretation Comments Vitamin B12 (test 272 pg/mL 213-816 code = 2132-9) Folate (test code = 7.70 ng/mL See_Comment [Automa fior 2284-8) message] The system which generated this result transmit fior reference range : >=7.00. The reference range was not used to interpret this result as normal/abnormal . GERALD (test code = GERALD) Prosthetics Lab Technician ID - EMIL Ric Lab Interpretation Normal (test code = 64051-6) [facility] CenterVITAMIN B12 AND [id number] 04:44:00 Test Item Value Reference Range Interpretation Comments VITAMIN B12 (BEAKER) 272 pg/mL 213-816 (test code = 774) FOLATE (BEAKER) 7.70 ng/mL See_Comment [Automated message] (test code = 362) The system which generated this result transmitted ref erence range: >=7.00. The reference range was not used to interpr et this result as normal/abnormal . Prosthetics Lab Technician ID - EMIL MRAD, CHEST, 1 VIEW, NON [id number] 04:41:00Reason for exam:->afibShould this be performed at the bedside?->Yes [facility] : 1940 Sex: FFINAL REPORT EXAM/TECHNIQUE: Single [...] Verified Date/Time: 12/04/2020 04:41:03 HIGH SENSITIVITY TROPONIN [id number] 04:36:00 Test Item Value Reference Range Interpretation Comments HIGH SENSITIVITY 8 pg/ml See_Comment [Automated message] TROPONIN I (test code = The system which 5086672) generated this result transmitted ref erence range: <=17. Th e reference range was not used to interpr et this result as normal/abnormal . Prosthetics Lab Technician ID - EMIL MThe STOCK UNLOADER STAT High Sensitivity Troponin-I results should be used in conjunction with other diagnostic information such as ECG, clinical observations and information, and patient symptoms to aid in the diagnosis of [place].B-TYPE NATRIURETIC FACTOR (BNP)2020-12-04 04:27:00 Test Item Value Reference Range Interpretation Comments B-TYPE NATRIURETIC PEPTIDE (BEAKER) 144 pg/mL 0-100 H (test code = 700) Prosthetics Lab Technician ID - EMIL MCBC W/PLT COUNT & AUTO [id number] 04:01:00 Test Item Value Reference Range Interpretation [...] (test code = 2801) TSH/Free T4 If [id number] 00:19:00 Test Item Value Reference Range Interpretation Comments TSH (test code = 1.723 See_Comment [Automated 47740-1) message] The system which generated this result transmit fior reference range : 0.350 - 4.940 uIU/mL. The reference range was not used to interpret this result as normal/abnormal . GERALD (test code = GERALD) Prosthetics Lab Technician ID - PIAYA L Lab Interpretation Normal (test code = 53253-4) [facility] CenterTSH/FREE T4 IF [id number] 00:19:00 Test Item Value Reference Range Interpretation Comments THYROID STIMULATING HORMONE 1.723 uIU/mL 0.350-4.940 (BEAKER) (test code = 772) Prosthetics Lab Technician ID - PIAYA LHIGH SENSITIVITY TROPONIN [id number] 00:02:00 Test Item Value Reference Range Interpretation Comments HIGH SENSITIVITY 7 pg/ml See_Comment [Automated message] TROPONIN I (test code = The system which 9740335) generated this result transmitted ref erence range: <=17. Th e reference range was not used to interpr et this result as normal/abnormal . Prosthetics Lab Technician ID - DBThe STOCK UNLOADER STAT High Sensitivity Troponin-I results should be used in conjunctionwith other diagnostic information such as ECG, clinical observations and information, and patient symptoms to aid in the diagnosis of [place].[id number] 23:58:00 Test Item Value Reference Range Interpretation Comments Phosphorus (test code = 3.3 mg/dL 2.3-4.7 2777-1) GERALD (test code = GERALD) Prosthetics Lab Technician ID - DB Lab Interpretation (test Normal code = 43791-0) [facility] CenterBASIC METABOLIC [id number] 23:58:00 Test Item Value Reference Range Interpretation [...] S NOT APPLICABLE FOR DIALYSIS PATIEN TS. Prosthetics Lab Technician ID - [id number] 23:58:00 Test Item Value Reference Range Interpretation Comments MAGNESIUM (BEAKER) (test code = 1.7 mg/dL 1.6-2.6 627) Prosthetics Lab Technician ID - [id number] 23:58:00 Test Item Value Reference Range Interpretation Comments PHOSPHORUS (BEAKER) (test code = 3.3 mg/dL 2.3-4.7 604) Prosthetics Lab Technician ID - DBHEPATIC FUNCTION [id number] 23:58:00 Test Item Value Reference Range Interpretation [...] (test code = 9 U/L 6-55 347) Prosthetics Lab Technician ID - [id number] 23:42:00 Test Item Value Reference Range Interpretation Comments D-Dimer, Quant (test 1.26 See_Comment H [Autom ated code = 57018-5) message] The system which generated this result [...] range. Lab Interpretation Abnormal (test code = 57957-8) [facility] CenterD-[id number] 23:42:00 Test Item Value Reference Range Interpretation [...] of thrombosis is within 95-100% range. Prothrombin time/[id number] 23:39:00 Test Item Value Reference Interpretation Comments [...] valves. Lab Interpretation Abnormal (test code = 99548-3) [facility] CenterPROTHROMBIN TIME/[id number] 23:39:00 Test Item Value Reference Range Interpretation [...] mechanical heart valves.CBC W/PLT COUNT & AUTO [id number] 23:32:00 Test Item Value Reference Range Interpretation [...] 417) IMMATURE GRANULOCYTES-RELATIVE 1 % 0-1 PERCENT (GUMARO) (test code = 2801)
--- NOTE | 2021-12-03 18:12 | RAD REPORT ---
EXAM DESCRIPTION: CT - Head C Spine Mpr Wo Con - 12/03/2021 5:43 pm CLINICAL HISTORY: Head and neck injury status post fall. Head and neck pain COMPARISON: October 2021 TECHNIQUE: Computed axial tomography of the head and cervical spine was obtained. Sagittal and coronal reconstruction was performed. All CT scans are performed using dose optimization technique as appropriate and may include automated exposure control or mA/KV adjustment according to patient size. FINDINGS: Right frontal scalp hematoma. An intracranial bleed is not seen. The ventricles are normal in caliber. An extra-axial fluid collect ion is not noted.Fluid within the visualized sinuses and mastoids is not seen A cervical fracture is not visualized. No dislocation is noted. Mild chronic posterior subluxation C4 on C5. Postsurgical changes C4 through C7. IMPRESSION: No acute intracranial abnormality is seen. A cervical fracture is not visualized. If the patient continues to have symptoms to suggest intracra nial /spinal cord pathology then MRI would be recommended
[2021-12-03] MEDS ORDERED: ACETAMINOPHEN 500 MG TAB ONE (18:20)
[2021-12-03] MEDS ORDERED: FENTANYL CITR 100 MCG/2 ML ONE (22:15)
[2021-12-03 22:30] LABS: Absolute Lymphocytes (CBC) 1.6 K/uL (0.7-4.9); Hematocrit 42.4 % (36.0-45.0); Lymphocytes % 13.8 % (15.3-44.8); MCV 94.6 fL (80-100); MPV 7.8 fL (7.6-11.3); RBC Red Blood Cell Count 4.48 M/uL (3.86-4.86)
[2021-12-03 22:47] LABS: Potassium 4.7 mmol/L (3.5-5.1)
--- NOTE | 2021-12-03 23:02 | RAD REPORT ---
EXAM DESCRIPTION: CT - Chest Abd Pelvis Wo Con - 12/03/2021 10:18 pm CLINICAL HISTORY: Chest and abdominal pain status post fall COMPARISON: May 2021 TECHNIQUE: Computed axial tomography of the chest, abdomen and pelvis was obtained. Oral contrast wa s given. IV contrast was not requested. All CT scans are performed using dose optimization technique as appropriate and may include automated exposure control or mA/KV adjustment according to patient size. FINDINGS: The evaluation of mediastinum, na, vessels and solid organs is limited secondary to the lack of IV contrast administration A mediastinal hematoma is not seen. A displaced rib fracture is not visualized. A pleural effusion is not present. A pericardial effusion is not seen. No pulmonary contusion. 14 millimeter left lower lobe nodule has increased in size from 2018 in which it measured 1 centimeter. Mild bilateral ground-glass opacities The liver, spleen, pancreas, adrenals kidneys and bladder do not demonstrate a traumatic injury. Splenic cyst. Small right renal calculus There is no evidence of diverticulitis. IMPRESSION: An acute traumatic injury involving the chest, abdomen/ pelvis not seen 14 millimeter left lung nodule has enlarged from 2018 and may represent neoplasm
--- NOTE | 2021-12-03 23:18 | ER ---
Nurse's Notes [facility] Name: Agnes Calabrese Age: 81 yrs Sex: Female : 1940 Arrival Date: 12/03/2021 Time: 16:48 Bed 7 Private MD: Diagnosis: Contusion of other part of head, initial encounter;Fall in (into) shower or empty bathtub, initial encounter;Contusion of right front wall of thorax Presentation: 12/03 17:05 Chief complaint: EMS states: toned out to Carriage in for a fall in the shower. tp1 reported PT lost balance and hit right side of forehead. PT did not lose consciousness. reported tenderness to the right side of forehead and pain 8/10, PT also CO neck pain. states PT ambulated to stretcher with assistance. PT is on Eliques. Reports PT uses 2 L O2 at home, O2 \T\ 94%, placed on 1.5 L O2 via NC for comfort measures. 17:05 Coronavirus screen: Vaccine status: Patient reports receiving the 2nd dose of the covid tp1 vaccine. Ebola Screen: Patient denies exposure to infectious person. Patient denies travel to an Ebola-affected area in the 21 days before illness onset. Initial Sepsis Screen: Does the patient meet any 2 criteria? No. Patient's initial sepsis screen is negative. Does the patient have a suspected source of infection? No. Patient's initial sepsis screen is negative. Risk Assessment: Do you want to hurt yourself or someone else? Patient reports no desire to harm self or others. Onset of symptoms was December 03, 2021. 17:05 Method Of Arrival: EMS: [facility] tp1 17:05 Acuity: WARREN 3 tp1 Triage Assessment: 17:05 General: Appears in no apparent distress. comfortable, Behavior is calm, cooperative. tp1 Pain: Complains of pain in right side of forehead and neck Pain does not radiate. Pain currently is 9 out of 10 on a pain scale. Quality of pain is described as sharp, Pain began suddenly, Is continuous. EENT: No signs and/or symptoms were reported regarding the EENT system. EENT: Nares are clear Reports use of a hearing aid in right ear. Neuro: Level of Consciousness is awake, alert, obeys commands, Oriented to person, place, time, situation, Pupils are PERRLA, Denies blurred vision. Cardiovascular: Capillary refill < 3 seconds Patient's skin is warm and dry. Respiratory: Airway is patent Respiratory effort is even, unlabored. GI: Abdomen is round non-distended. : No signs and/or symptoms were reported regarding the genitourinary system. Derm: Skin is pink, warm \T\ dry. Musculoskeletal: Circulation, motion, and sensation intact. Injury Description: Bruise sustained to right forhead. 17:05 General: left mastectomy . tp1 Historical: - Allergies: 17:25 Strawberries; tp1 17:25 PENICILLINS; tp1 17:25 Sulfa (Sulfonamide Antibiotics); tp1 17:25 Darvocet-N 100; tp1 17:25 clindamycin HCl (bulk); tp1 - PMHx: 17:25 hypothyroidism; Alzheimer's disease; hyperlipidemia; Depression; COPD; Hypertension; tp1 GERD; Afib; 17:25 left breast cancer; tp1 - Immunization history:: Client reports receiving the 2nd dose of the Covid vaccine. - Social history:: Smoking status: Patient/guardian denies using tobacco, the patient reports quitting approximately 1657 years ago. Screenin:20 Abuse screen: Denies threats or abuse. Nutritional screening: No deficits noted. tp1 Tuberculosis screening: No symptoms or risk factors identified. Fall Risk Fall in past 12 months (25 points). Secondary diagnosis (15 points) Alzheimer's, No IV (0 pts). Ambulatory Aid- Crutches/Cane/Walker (15 pts). Gait- Normal/Bed Rest/Wheelchair (0 pts) Mental Status- Oriented to own ability (0 pts). Total Arredondo Fall Scale indicates High Risk Score (45 or more points). Fall prevention measures have been instituted. Side Rails Up X 2 Placed Close to Nursing Station Frequent Obs/Assessments Occuring Family Present and informed to notify staff if the need to leave the bedside. Assessment: 17:22 General: see triage notes. tp1 18:10 Pain: Complains of pain in right side Pain does not radiate. Pain currently is 4 out of tp1 10 on a pain scale. Quality of pain is described as sharp, Pain began suddenly, provider notified. 18:10 Reassessment: Patient appears in no apparent distress at this time. No changes from tp1 previously documented assessment. Patient and/or family updated on plan of care and expected duration. Pain level reassessed. Patient is alert, oriented x 3, equal unlabored respirations, skin warm/dry/pink. Vital Signs: 17:05 BP 132 / 73; Pulse 60; Resp 14; Temp 97.6; Pulse Ox 96% ; Weight 104.78 kg; Height 5 tp1 ft. 3 in. (160.02 cm); 17:05 BP 132 / 73; Pulse 60; Resp 14; Temp 97.6; Pulse Ox 96% on 1.5 lpm NC; tp1 18:35 BP 141 / 89; Pulse 58; Resp 14; Pulse Ox 100% 1.5 lpm ; tp1 23:33 Pulse 61; Resp 14; Pulse Ox 94% on R/A; kd3 17:05 Body Mass Index 40.92 (104.78 kg, 160.02 cm) tp1 ED Course: 16:48 Patient arrived in ED. iw 16:50 Rodriguez Garcia PA is PHCP. cp 16:50 Wilmer Jarrell DO is Attending Physician. cp 17:10 Door closed. Noise minimized. Warm blanket given. tp1 17:14 Karina Alberto, RN is Primary Nurse. tp1 17:22 Triage completed. tp1 17:45 CT Head C Spine In Process Unspecified. EDMS 18:19 Patient has correct armband on for positive identification. Bed in low position. Call tp1 light in reach. Side rails up X 1. Client placed on continuous cardiac and pulse oximetry monitoring. NIBP monitoring applied. 19:02 Missed attempt(s): 20 gauge in right antecubital area. Bleeding controlled, band aid tp1 applied, catheter tip intact. 20:14 Radiology exam delayed due to IV insertion attempt and/or patient not having kk6 appropriate IV at this time. 21:53 Missed attempt(s): 20 gauge in right antecubital area. Bleeding controlled, band aid bb applied, catheter tip intact. 21:54 Inserted saline lock: 22 gauge in right ,using aseptic technique. ankle. bb 22:20 Chest Abd Pelvis Wo Con In Process Unspecified. EDMS 23:33 Arm band placed on right wrist. kd3 23:33 No provider procedures requiring assistance completed. IV discontinued, intact, kd3 bleeding controlled, No redness/swelling at site. Pressure dressing applied. Administered Medications: 18:15 Drug: Tylenol 1000 mg Route: PO; tp1 22:25 Follow up: Response: No adverse reaction kd3 22:24 Drug: fentaNYL (PF) 25 mcg Route: IVP; Site: Other; kd3 22:25 Follow up: Response: No adverse reaction kd3 Medication: 23:33 VIS not applicable for this client. kd3 Outcome: 23:16 Discharge ordered by . cp 23:33 Discharged to home via wheelchair. kd3 23:33 Condition: stable 23:33 Discharge instructions given to patient, family, Instructed on discharge instructions, follow up and referral plans. Demonstrated understanding of instructions, follow-up care. 23:41 Patient left the ED. mw2 Signatures: Dispatcher [employer] EDMS Jeanette Mathews RN Carline Soares RN RN iw Page, Corey, PA PA cp [place], MyKena mw2 Fariha Jasso kk6 Sofie Bautista RN RN kd3 Karina Alberto RN RN tp1 Corrections: (The following items were deleted from the chart) 17:25 17:05 Chief complaint: EMS states: toned out to Carriage in for a fall in the shower. tp1 reported PT lost balance and hit right side of forehead. PT did not lose consciousness. reported tenderness to the right side of forehead and pain 8/10, PT also CO neck pain. states PT ambulated to stretcher with assistance. PT is on Eliques. tp1 17:34 17:05 BP 132 / 73; Pulse 60bpm; Resp 14bpm; Pulse Ox 96% 2 lpm Nasal Cannula; Temp tp1 97.6F; tp1 18:16 17:05 EENT: Nares are clear tp1 tp1
--- NOTE | 2021-12-03 23:18 | EDPHYS ---
Physician Documentation [facility] Name: Agnes Calabrese Age: 81 yrs Sex: Female : 1940 Arrival Date: 12/03/2021 Time: 16:48 Bed 7 Private MD: ED Physician Wilmer Jarrell HPI: 12/03 17:10 This 81 yrs old Female presents to ER via EMS with complaints of Fall Injury. cp 17:10 Details of fall: The patient fell from an upright position, while standing, and struck cp a tile surface. Onset: The symptoms/episode began/occurred just prior to arrival. Associated injuries: The patient sustained injury to the head, contusion, swelling, tenderness. Severity of symptoms: in the emergency department the symptoms are unchanged, despite EMS interventions. Patient reports slip and fall in shower causing her to strike right side of head. No LOC. Historical: - Allergies: 17:25 Strawberries; tp1 17:25 PENICILLINS; tp1 17:25 Sulfa (Sulfonamide Antibiotics); tp1 17:25 Darvocet-N 100; tp1 17:25 clindamycin HCl (bulk); tp1 - PMHx: 17:25 hypothyroidism; Alzheimer's disease; hyperlipidemia; Depression; COPD; Hypertension; tp1 GERD; Afib; 17:25 left breast cancer; tp1 - Immunization history:: Client reports receiving the 2nd dose of the Covid vaccine. - Social history:: Smoking status: Patient/guardian denies using tobacco, the patient reports quitting approximately 1657 years ago. ROS: 17:15 Constitutional: Negative for body aches, chills, fever, poor PO intake. cp 17:15 Eyes: Negative for injury, pain, redness, and discharge. cp 17:15 ENT: Negative for drainage from ear(s), ear pain, sore throat, difficulty swallowing, difficulty handling secretions. 17:15 Neck: Negative for stiffness. 17:15 Cardiovascular: Negative for chest pain, edema, palpitations. 17:15 Respiratory: Negative for cough, shortness of breath, wheezing. 17:15 Abdomen/GI: Negative for abdominal pain, nausea, vomiting, and diarrhea, constipation. 17:15 Back: Negative for pain at rest, pain with movement. 17:15 MS/extremity: Negative for injury or acute deformity, decreased range of motion, paresthesias. 17:15 Neuro: Positive for headache, Negative for altered mental status, dizziness, loss of consciousness, syncope, weakness. 17:15 All other systems are negative. Exam: 17:20 Constitutional: The patient appears in no acute distress, alert, awake, cp non-diaphoretic, non-toxic, well developed, well nourished, obese. 17:20 Head/face: Noted is contusion, that is superficial, of the forehead and right mu-ism, cp ecchymosis, that is mild, of the forehead and right mu-ism, swelling, that is mild, of the forehead and right mu-ism, tenderness, that is moderate, of the forehead and right mu-ism. 17:20 Eyes: Periorbital structures: appear normal, Pupils: equal, round, and reactive to light and accomodation, Extraocular movements: intact throughout, Conjunctiva: normal, no exudate, no injection, Sclera: no appreciated abnormality, Lids and lashes: appear normal, bilaterally. 17:20 ENT: External ear(s): are unremarkable, Ear canal(s): are normal, clear, TM's: dullness, bilaterally, Nose: is normal, Mouth: Lips: moist, Oral mucosa: pink and intact, moist, Posterior pharynx: Airway: no evidence of obstruction, patent. 17:20 Neck: C-spine: C-collar placed in ED, vertebral tenderness, that is mild, appreciated at C6 and C7, crepitus, is not appreciated, ROM/movement: pain, that is mild, with flexion, limited range of motion, is not appreciated. 17:20 Chest/axilla: Inspection: normal, Palpation: crepitus, is not appreciated, tenderness, is not appreciated. 17:20 Cardiovascular: Rate: normal, Rhythm: regular, JVD: is not appreciated. 17:20 Respiratory: the patient does not display signs of respiratory distress, Respirations: normal, no use of accessory muscles, no retractions, labored breathing, is not present, Breath sounds: are clear throughout, no decreased breath sounds, no stridor, no wheezing. 17:20 Abdomen/GI: Inspection: abdomen appears normal, Bowel sounds: normal, in all quadrants, Palpation: abdomen is soft and non-tender, in all quadrants. 17:20 Back: pain, is absent, ROM is normal. 17:20 Musculoskeletal/extremity: Extremities: all appear grossly normal, with no appreciated pain with palpation. 17:20 Neuro: Orientation: to person, place \T\ time. Mentation: is normal, Memory: is normal, immediate memory is intact, recent memory is intact, Motor: moves all fours, strength is normal, Sensation: is normal. Vital Signs: 17:05 BP 132 / 73; Pulse 60; Resp 14; Temp 97.6; Pulse Ox 96% ; Weight 104.78 kg; Height 5 tp1 ft. 3 in. (160.02 cm); 17:05 BP 132 / 73; Pulse 60; Resp 14; Temp 97.6; Pulse Ox 96% on 1.5 lpm NC; tp1 18:35 BP 141 / 89; Pulse 58; Resp 14; Pulse Ox 100% 1.5 lpm ; tp1 23:33 Pulse 61; Resp 14; Pulse Ox 94% on R/A; kd3 17:05 Body Mass Index 40.92 (104.78 kg, 160.02 cm) tp1 MDM: 16:55 Patient medically screened. cp 18:00 Differential diagnosis: closed head injury, contusion, fracture, laceration, multiple cp trauma. 18:35 Data reviewed: vital signs, nurses notes, radiologic studies, CT scan. cp 18:35 Counseling: I had a detailed discussion with the patient and/or guardian regarding: the cp historical points, exam findings, and any diagnostic results supporting the discharge/admit diagnosis, radiology results, negative head and c-spine CT. Patient now c/o right lower rib pain and tenderness to palpation noted. Will order CT chest/abdomen/pelvis. 23:15 Response to treatment: the patient's symptoms have markedly improved after treatment, cp and as a result, I will discharge patient. 23:15 Special discussion: Based on the patient's history, exam and DX evaluation, there is no cp indication for emergent intervention or inpatient TX. It is understood by the patient/guardian that if the SXs persist or worsen they need to return immediately for re-evaluation. 12/03 18:47 Order name: Basic Metabolic Panel; Complete Time: 23:10 cp 12/03 23:10 Interpretation: Normal except: CL 109; GLUC 129; BUN 21; GFR 44. cp 12/03 18:47 Order name: CBC with Diff; Complete Time: 23:10 cp 12/03 23:10 Interpretation: Normal except: WBC 11.50; SENAIT% 76.4; LYM% 13.8; NEUT A 8.8. cp 12/03 16:58 Order name: CT Head C Spine; Complete Time: 18:22 cp 12/03 18:22 Interpretation: Reviewed report. cp 12/03 18:47 Order name: Type And Screen cp 12/03 22:14 Order name: Chest Abd Pelvis Wo Con; Complete Time: 23:10 EDMS 12/03 23:12 Interpretation: Report reviewed. cp 12/03 18:47 Order name: Labs collected and sent; Complete Time: 22:36 cp Administered Medications: 18:15 Drug: Tylenol 1000 mg Route: PO; tp1 22:25 Follow up: Response: No adverse reaction kd3 22:24 Drug: fentaNYL (PF) 25 mcg Route: IVP; Site: Other; kd3 22:25 Follow up: Response: No adverse reaction kd3 Disposition Summary: 12/03/21 23:16 Discharge Ordered Location: Home cp Problem: new cp Symptoms: have improved cp Condition: Stable cp Diagnosis - Contusion of other part of head, initial encounter cp - Fall in (into) shower or empty bathtub, initial encounter cp - Contusion of right front wall of thorax cp Followup: cp - With: Private Physician - When: 1 - 2 days - Reason: Recheck today's complaints Discharge Instructions: - Discharge Summary Sheet cp - Facial or Scalp Contusion cp - Hematoma cp - Fall Prevention in the Home, Adult cp - Blunt Chest Trauma cp Forms: - Medication Reconciliation Form cp - Thank You Letter cp - Antibiotic Education cp - Prescription Opioid Use cp Signatures: Dispatcher [employer] EDMS Rodriguez Garcia PA PA cp Sofie Bautista RN RN kd3 Karina Alberto RN RN tp1 Corrections: (The following items were deleted from the chart) 22:14 18:56 Chest Abdomen Pelvis W Con+CT.RAD.BRZ ordered. EDMS EDMS
[2021-12-04 00:26] VITALS: TEMP 97.6
[2021-12-04 00:37] VITALS: BP 141/89
[2021-12-04 00:39] VITALS: O2SAT 94
== END 2021-12-03 23:41 | disposition home or self-care (01) ==
LOC: ER 16:35
DX: S00.83XA Contusion of other part of head, initial encounter (principal); S20.211A Contusion of right front wall of thorax, initial encounter; W18.2XXA Fall in (into) shower or empty bathtub, initial encounter; I10 Essential (primary) hypertension; G30.9 Alzheimer's disease, unspecified; F02.80 Dementia in other diseases classified elsewhere, unspecified severity, without behavioral disturbance, psychotic disturbance, mood disturbance, and anxiety; I48.91 Unspecified atrial fibrillation; Z88.0 Allergy status to penicillin; Z88.2 Allergy status to sulfonamides; Z88.3 Allergy status to other anti-infective agents; Z88.5 Allergy status to narcotic agent; Z91.018 Allergy to other foods
CPT/HCPCS: 85025; 80048; 36415; 86900; 86850; 86901; 70450; 71250; 72125; 74176; J3010

== ENCOUNTER 2021-12-30 13:28 | Observation (INO) | payer OTHER ==
--- OUTSIDE RECORDS SUMMARY | 2021-12-30 13:36 | XMS REPORT | Continuity of Care Document ---
:1940 Author Organization [facility] t Address [address] [place] [address] Care Team Providers Name Role Phone Farhat HOLT, Garrett Primary Care Physician Amadou Linda Attending Clinician Unavailable Kenia Torres Attending Clinician Unavailable [id number] Attending Clinician Unavailable DOMINIQUE SMITH Attending Clinician Unavailable Chin Pat Attending Clinician Doctor Unassigned, [place] Attending Clinician Unavailable Jonathon Batista Attending Clinician Stefan Huynh MD Attending Clinician Joe HOLT, Perfecto Mckeon Attending Clinician [phone] Dominique Smith MD Attending Clinician [phone] Arielle Goetz MD Attending Clinician Hanna HOLT, Shelton Dennis Attending Clinician Renan Canela MD Attending Clinician Garrett Dougherty V Admitting Clinician Unavailable [id number] Admitting Clinician Unavailable DOMINIQUE SMITH Admitting Clinician Unavailable ARIELLE GOETZ Admitting Clinician Unavailable Payers Payer Name Policy Type Policy Number Effective Date Expiration Date S ource Problems Condition Condition Condition Status Onset Resolution Last Treating Co mments Source Name Details Category Date Date Treatment Clinician Date Atrial Atrial Disease Active [facility] fibr[facility] fibrillati 8-16 Carol kes on with on with 00:00: Medical RVR RVR 00 Center At risk At risk Problem Active 2021-09-27 M emoria for falls for falls 5-02 04:45:19 l (finding) (finding) 00:00: Herm quynh Active 00 08/19/2016 Problem 09/27/2021 [facility] Hallucinat Hallucina Problem Active 2021-09-27 Memoria ions tions 5- 04:45:19 l (finding) (finding) 00:00: Herm quynh Active 00 08/19/2016 Problem 09/27/2021 [facility] Status Status Disease Active 2015-04 [facility] post [...] Me dical of of Branch 40.0-49.9 40.0-49.9 Paresthesi Paresthes Problem Active 2021-09-27 Memoria a ia 4-20 04:45:19 l (finding) (finding) 00:00: Herm quynh Active 00 08/08/2015 Problem 09/27/2021 [facility] Essential Essential Problem Active 2014-042021-09-27 Memoria hypertensi hypertensi 2-16 04:45:19 l on on 00:00: [place] (disorder) (disorder) 00 Active 04/04/2015 Problem 09/27/2021 [facility] Essential Essential Problem Active 2014-042021-09-27 Memoria tremor tremor 2-16 04:45:19 l (disorder) (disorder) 00:00: He rmann Active 00 04/04/2015 Problem 09/27/2021 [facility] CINTHIA CINTHIA Disease Active [facility] (obstructi (obstructi Carol kes ve sleep ve sleep Medica l apnea) apnea) Center Carpal Carpal Problem Active 2021-09-27 Johan manish tunnel tunnel 04:45:19 l syndrome syndrome Chucho n (disorder) (disorder) Active Problem 09/27/2021 [facility] Dementia Dementia Problem Active 2021-09-27 Memoria (disorder) (disorder) 04:45:19 l Active Lyle Problem 09/27/2021 [facility] Gout Gout Problem Active 2021-09-27 Memor ia (disorder) (disorder) 04:45:19 l Active [place] Problem 09/27/2021 [facility] Hyperlipid Hyperlipi Problem Active 2021-09-27 Memoria emia demia 04:45:19 l (disorder) (disorder) He rmann Active Problem 09/27/2021 [facility] Depressive Depressiv Problem Active 2021-09-27 Memoria disorder e disorder 04:45:19 l (disorder) (disorder) He rmann Active Problem 09/27/2021 [facility] Fibromyalg Fibromyal Problem Active 2021-09-27 Memoria ia amanda 04:45:19 l (disorder) (disorder) He rmann Active Problem 09/27/2021 [facility] Concussion Concussio Problem Active 2021-09-27 Memoria injury of n injury 04:45:19 l body of body Lyle structure structure (disorder) (disorder) Active Problem 09/27/2021 [facility] Polymyalgi Polymyalg Problem Active 2021-09-27 Memoria a ia 04:45:19 l rheumatica rheumatica He rmann (disorder) (disorder) Active Problem 09/27/2021 [facility] Recurrent Recurrent Problem Active 2021-09-27 Memoria falls falls 04:45:19 l (finding) (finding) Herm quynh Active Problem 09/27/2021 [facility] Transient Transient Problem Active 2021-09-27 Memoria ischemic ischemic 04:45:19 l attack attack Huey (disorder) (disorder) Active Problem 09/27/2021 [facility] Syncope Syncope Problem Active 2021-09-27 Me milagrosa (disorder) (disorder) 04:45:19 l Active [place]uey Problem 09/27/2021 [facility] Tremor Tremor Problem Resolve 2016-2021-09-27 2021-09-27 Memoria (finding) (finding) d - 04:45:19 04:45:19 l Resolved 00:00: Lyle 08/19/2016 00 Problem 09/27/2021 [facility] Amnesia Amnesia Problem Resolve 2014-042021-09-27 2021-09-27 Memoria (finding) (finding) d - 04:45:19 04:45:19 l Resolved 00:00: Lyle 04/04/2015 00 Problem 09/27/2021 [facility] Allergies, Adverse Reactions, Alerts Allergy Allergy Status [...] [facility] 00:00: Medical ANTIBIOT 00 Center [facility]) Clindamy Propensi Active Rash 2020-[address] [facility] [address] [facility] Hcl ty to 8-16 [facility] adverse 00:00: Medical reaction 00 Center s Penicill Propensi Active Rash 2020-[address] [facility] in ty to 8-16 [facility] adverse 00:00: Medical reaction 00 Center s Sulfa Propensi Active Rash 2020-[address] [facility] [address] (Sulfona ty to 8-16 [facility] mide adverse 00:00: Medical Antibiot reaction 00 Center [facility]) s Clindamy Propensi Active Unknown 2020-0 Metho [...] Hospita reaction 00 l s to drug Penicill [...] reaction 00 Medica l ics) s Branch sulfa sulfa Active Mild Memoria drugs drugs l [place]yle penicill penicill Active Memori a ins ins l [place] Family History Family Member Diagnosis Comments Start Date Stop Date Source Natural mother Asthma [facility] father Diabetes [facility] Heart disease [facility] Social History Social Habit Start Date Stop Date Quantity Comments Source History SDOH [facility] Alcohol Std Drinks Medica l Center History SDOH [facility] Alcohol Binge Medical Dagoberto ter History SDOH [facility] Alcohol Comment Medical C enter History of tobacco Smoker Method ist use Hospital Exposure to 2021-06-24 2021-07-[address] [facility]00 14:26:00 [facility] History SDOH 2020-12-04 2020-12-[address] [facility] Alcohol Frequency 00:00:00 00:00:00 [facility] Tobacco use and 2020-12-03 2020-12-[address] [facility] Carol kes exposure 00:00:00 00:00:00 [facility] Alcohol intake 2020-12-03 2020-12-[address] [address] [facility] es 00:00:00 00:00:00 non-drinker Medical Daisy r (finding) Cigarettes smoked 2019-10-18 2019-10-[address] current (pack per 00:00:00 00:00:00 Hospita l day) - Reported Cigarette 2019-10-18 2019-10-18 [facility]ast[facility] pack-years 00:00:00 00:00:00 Hospital Sex Assigned At [address] Carol kes 00:00:00 00:00:00 [facility] Center Smoking Status Start Date Stop Date Source Never smoker [facility] Social History 2021-04-23 22:10:18 2021-04-23 22:10:18 [facility] Medications Ordered Filled Start Stop Current Ordering Indication Dosage Frequency Signature Comments Components Source Medication Medication Date Date Medication? Clinician (SIG) Name Name topiramate Yes 100 mg = 1 M emoria 100 mg oral 5-19 tab, PO, l tablet 23:43: BID, # 180 Ela nn 00 tab, 2 Refill(s), Pharmacy: [facility], 154.94, cm, 11/27/20 15:33:00 CDT, Height, 93.75, kg, 11/27/20 15:33:00 CDT, Weight memantine Yes = 1 tab, Johan manish 10 mg oral 5-19 PO, BID, # l tablet 23:42: 180 tab, 2 Ela nn 00 Refill(s), Pharmacy: [facility], 154.94, cm, 11/27/20 15:33:00 CDT, Height, 93.75, kg, 11/27/20 15:33:00 CDT, Weight Flecainide No 50 mg = 1 Me moria Acetate 50 1-04 tab, PO, l MG Oral 22:34: Q12H, # Huey Tablet 00 180 tab, 0 [Tambocor] Refill(s) apixaban 5 Yes 5 mg, PO, Me moria MG Oral 1-04 Q12H, tab, l Tablet 22:33: 0 Lyle [Eliquis] 00 Refill(s) Furosemide Yes 20 mg = 1 Me moria 20 MG Oral 1-04 tab, PO, l Tablet 22:33: Daily, # Huey [Lasix] 00 30 tab, 0 Refill(s) quetiapine Yes 100 mg = 1 M emoria 100 MG Oral 1-04 tab, PO, l Tablet 22:33: Daily, 0 Huey [Seroquel] 00 Refill(s) Levofloxaci Yes See Memori a n 750 MG -04 Instructio l Oral Tablet 22:32: ns, 2 tab H ermann [Levaquin] 00 PO Q24H, 0 Refill(s) topiramate 2020-04 Yes 100 mg = 1 M emoria 100 mg oral 2-10 tab, PO, l tablet 17:37: BID, # 180 Ela nn 00 tab, 2 Refill(s), 154.94, cm, 11/27/20 15:33:00 CDT, Height, 93.75, kg, 11/27/20 15:33:00 CDT, Weight montelukast 2020-04 Yes 10 mg = 1 M emoria 10 mg oral 2-10 tab, PO, l tablet 17:27: Bedtime, # Ela nn 00 90 tab, 1 Refill(s) Trelegy 2020-04 Yes = 1 Memoria Ellipta 100 2-10 inhalation l mcg-62.5 17:26: , PO, Lyle mcg-25 00 Daily, # 1 mcg/inh ea, 0 inhalation Refill(s) powder levothyroxi 2020-04 Yes 75 Memori a ne 75 mcg 2-10 microgram l (0.075 mg) 17:26: = 1 tab, Her cook oral tablet 00 PO, Daily, # 90 tab, 1 Refill(s) flecainide 2020-04 Yes 50 mg = 1 Me moria 50 mg oral 2-10 tab, PO, l tablet 17:25: Q12H, # Lyle 00 180 tab, 3 Refill(s) buPROPion Yes Univers XL 150 mg 8-26 ity of 24 hr 00:00: [place] tablet 00 [facility] buPROPion Yes Univers XL 150 mg 8-26 ity of 24 hr 00:00: [place] tablet [facility] buPROPion Yes Univers XL 150 mg 8-26 ity of 24 hr 00:00: [place] tablet 00 [facility] buPROPion Yes Univers XL 150 mg 8-26 ity of 24 hr 00:00: [place] tablet 00 [facility] buPROPion Yes Univers XL 150 mg 8-26 ity of 24 hr 00:00: [place] tablet 00 [facility] furosemide 2021- No 20mg QD Take [address] [facility] (LASIX) 20 -10 12-23 tablet (20 Carol kes MG tablet 00:00: 23:59 mg total) Me dical 00 :00 by mouth Center daily. furosemide 2021- No 20mg QD Take [address] [facility] (LASIX) 20 8-10 12-23 tablet (20 Carol kes MG tablet 00:00: 23:59 mg total) Me dical 00 :00 by mouth Center daily. zolpidem Yes 10mg Take [address] [facility] (AMBIEN) 10 - by mouth Luke s mg tablet 12:43: every Medical 24 night as Center needed for Insomnia. donepeziL Yes 10mg QD Take [address] (ARICEPT) 8- by mouth Lukes 10 MG 12:43: nightly. Medical tablet 24 Center DULoxetine Yes 60mg Q.5D Take [address] (CYMBALTA) 8 by mouth 2 Brain es 60 MG 12:43: (two) Medical capsule 24 times Center daily. gabapentin 0 Yes 300mg Q.[id number] Take [address] (NEURONTIN) 8-22 [id number] mg by Jm ukes 300 MG 12:43: 3D mouth 3 Medical capsule 24 (three) Center times daily. indapamide 0 Yes 2.5mg QD Take 2.[address] (LOZOL) 2.5 8-22 mg by Lukes MG tablet 12:43: mouth Medical 24 every Center morning. memantine 0 Yes 10mg Q.5D Take 10 mg CH [...] tablet daily as needed for Pain. potassium 0 Yes 20meq Q.5D Take [address] chloride 8-22 mEq by Lukes (KLOR-CON) 12:43: mouth 2 Medi jennifer 20 mEq 24 (two) Center packet times daily. QUEtiapine 0 Yes 200mg QD Take [address] (SEROquel) 8-22 mg by Lukes 200 MG 12:43: mouth Medical tablet 24 nightly. Center simvastatin 0 Yes 40mg QD Take [address] [facility] (ZOCOR) 40 8-22 by mouth Lukes MG tablet 12:43: nightly. Medi jennifer 24 Center topiramate 0 Yes 200mg Q.5D Take [address] (TOPAMAX) 8-22 mg by Lukes 200 MG 12:43: mouth 2 Medical tablet 24 (two) Center times daily. buPROPion 0 Yes 150mg QD Take [address] [...] mouth Lukes 4 MG tablet 12:43: daily. Medi jennifer 24 Center fluticasone Yes QD Inhale [address] -umeclidin- 8-22 Inhalation Carol kes vilanter 12:43: by mouth Medic al (Trelegy 24 via Center Ellipta) inhaler 100-62.5-25 daily . mcg DsDv zolpidem Yes 10mg Take 10 mg CHI [...] 24 times Center daily. gabapentin Yes 300mg Q.[id number] Take [address] (NEURONTIN) 8-22 [id number] mg by L ukes 300 MG 12:43: [...] mouth Lukes 4 MG tablet 12:43: daily. Medi jennifer 24 Center fluticasone Yes QD Inhale [address] -umeclidin- 8-22 Inhalation Carol kes vilanter 12:43: by mouth Medic al (Trelegy 24 via Center Ellipta) inhaler 100-62.5-25 daily . mcg DsDv clopidogreL 2020- No 75mg QD Take [address] [facility] (PLAVIX) 75 8-22 08-22 by mouth Brain es mg tablet [...] COUGH FOR UP TO 7 DAYS. apixaban 2- No 5mg Q.5D Take [address] (ELIQUIS) 5 8-22 08-22 tablet (5 Carol kes mg Tab 00:00: [...] by mouth Center every 12 (twelve) hours. apixaban 2021- No 5mg Q.5D Take 1 [...] 0.25 mg 8-02 ity of tablet 00:00: [address] Branch ALPRAZolam 0 Yes Univers 0.25 mg 8-02 ity of tablet 00:00: [address] Branch ALPRAZolam Yes Univers 0.25 mg 8-02 ity of tablet 00:00: [place] [facility] ALPRAZolam Yes Univers 0.25 mg 8-02 ity of tablet 00:00: [place] [facility] Branch ALPRAZolam Yes Univers 0.25 mg 8-02 ity of tablet 00:00: [address] clopidogrel Yes 75 mg = 1 M emoria 75 MG Oral 5-10 tab, PO, l Tablet 19:06: Daily, # Huey [Plavix] 00 30 tab, 3 Refill(s), Pharmacy: [facility], 160.02, cm, 08/27/20 13:30:00 CDT, Height, 93.636, kg, 08/27/20 13:30:00 CDT, Weight donepezil Yes 10 mg = 1 Mem oria 10 mg oral 3-09 tab, PO, l tablet 20:52: Bedtime, # Ela nn 00 90 tab, 2 Refill(s), 157.48, cm, 06/26/20 14:30:00 [employer], Height, 91.818, kg, 06/26/20 14:30:00 [employer], Weight memantine Yes = 1 tab, Johan manish 10 mg oral 3-09 PO, BID, # l tablet 20:52: 180 tab, 2 Ela nn 00 Refill(s), 157.48, cm, 06/26/20 14:30:00 [employer], Height, 91.818, kg, 06/26/20 14:30:00 [employer], Weight topiramate Yes 200 mg = 1 M emoria 200 mg oral 3-09 tab, PO, l tablet 20:52: BID, # 180 Ela nn 00 tab, 1 Refill(s), 157.48, cm, 06/26/20 14:30:00 [employer], Height, 91.818, kg, 06/26/20 14:30:00 [employer], Weight Zolpidem Yes 10 mg = 1 Johan manish tartrate 10 3-09 tab, PO, l MG Oral 20:41: Bedtime, Chucho n Tablet 00 PRN for [Ambien] sleep, 0 Refill(s) topiramate 2020-1 Yes 200 mg = 1 M emoria 200 mg oral 2-09 tab, PO, l tablet 20:49: BID, # 180 Ela nn 00 tab, 1 Refill(s), Pharmacy: [id number], 160.02, cm, 03/28/20 14:19:00 [employer], Height, 93.636, kg, 03/28/20 14:19:00 [employer], Weight donepezil 2019-1 Yes 10 mg = 1 Mem oria 10 mg oral 1-09 tab, PO, l tablet 21:19: Bedtime, # Ela nn 00 90 tab, 2 Refill(s), Pharmacy: [facility] #[id number], 160.02, cm, 02/27/20 14:33:00 [employer], Height, 93.636, kg, 02/27/20 14:33:00 [employer], Weight tizanidine 2019-0 Yes 4 mg = 1 Mem oria 4 mg oral 8-07 tab, PO, l tablet 18:57: Daily, 0 Lyle 00 Refill(s) Ellura 2020-0 Yes 0 Memoria 8-07 Refill(s) l 18:57: Lyle 00 predniSONE 2020-0 Yes 5 mg = 1 Mem oria 5 mg oral 8-06 tab, PO, l tablet 20:23: Daily, # Huey 00 30 tab, 2 Refill(s), Pharmacy: [facility][id number], 160.02, cm, 11/24/19 14:46:00 CDT, Height, 95.455, kg, 11/24/19 14:46:00 CDT, Weight predniSONE 2020-0 Yes 5 mg = 1 Mem oria 5 mg oral 6-03 tab, PO, l tablet 19:17: Daily, # Huey 00 30 tab, 2 Refill(s), Pharmacy: [facility][id number] Acetaminoph 2020-0 Yes 1 tab, PO, Memoria en 325 MG / 6-03 Q8H, PRN l Hydrocodone 18:41: Pain, # 90 Lyle Bitartrate 00 tab, 0 7.5 MG Oral Refill(s) Tablet [[place] 7.5/325] methocarbam 2020-0 Yes 750 mg = 1 Memoria ol 750 mg 6-03 tab, PO, l oral tablet 18:41: Q8H, PRN He rmann 00 Spasms, # 60 tab, 0 Refill(s) predniSONE No 10 mg = 1 Me moria 10 mg oral 6-03 tab, PO, l tablet 18:41: Daily, 0 Lyle 00 Refill(s) 24 HR Yes 150 mg = 1 Memori a Bupropion 3-16 tab, PO, l Hydrochlori 15:38: Daily, # He rmann de 150 MG 00 30 tab, 2 Extended Refill(s), Release Pharmacy: [facility] [[facility] #[id number] ] predniSONE Yes 10 mg = 1 Me moria 10 mg oral 3-03 tab, PO, l tablet 21:30: Daily, X Lyle 00 30 day, # 30 tab, 1 Refill(s), Pharmacy: [id number] predniSONE 0 No 20 mg = 1 Me moria 20 mg oral 3-03 tab, PO, l tablet 20:38: BID, Lyle 00 Quantity sufficient , X 30 day, # 60 tab, 1 Refill(s), Pharmacy: [id number] predniSONE 0 No 20 mg = 1 Me moria 20 mg oral 3-03 tab, PO, l tablet 20:31: Daily, Lyle 00 Quantity sufficient , X 30 day, # 30 tab, 1 Refill(s), Pharmacy: [id number] Prednisone 0 No 50 mg, PO, M emoria 3-03 Daily, l 20:08: Quantity Lyle 00 sufficient , 0 Refill(s) donepezil 5 Yes = 1 tab, Me moria mg oral 2-12 PO, l tablet 17:10: Bedtime, # Ela nn 00 90 tab, 3 Refill(s), Pharmacy: [id number] 24 HR 2018-04 Yes 150 mg = 1 Memori a Bupropion 2-03 tab, PO, l Hydrochlori 20:03: Q24H, 0 Her cook de 150 MG 00 Refill(s) Extended Release Tablet spironolact 2018-04 Yes 25 mg = 1 M emoria one 25 mg 2-03 tab, PO, l oral tablet 20:03: BID, 0 Herm quynh 00 Refill(s) sucralfate 2019-1 Yes 1 gm = 1 Mem oria 1 g oral 2-03 tab, PO, l tablet 20:03: Daily, 0 Lyle 00 Refill(s) 24 HR 2018-04 Yes 150 mg = 1 Memori a Bupropion 2-03 tab, PO, l Hydrochlori 19:59: Daily, # He rmann de 150 MG 00 30 tab, 1 Extended Refill(s), Release Pharmacy: [facility] [Wellbutrin [facility] #[id number] ] Nitrofurant 2018-04 Yes 50 mg, PO, Memoria oin 2-03 Daily, # l 19:52: 14 cap, 0 Lyle 00 Refill(s) Donepezil Yes 5 mg = 1 Johan manish hydrochlori 9-03 tab, PO, l de 5 MG 20:02: Bedtime, # Herm quynh Oral Tablet 00 30 tab, 3 [Aricept] Refill(s), Pharmacy: [facility] #[id number] potassium Yes 20 mEq = 1 Me moria chloride 20 9-03 tab, PO, l mEq oral 19:33: BID, # 10 Herm quynh tablet, 00 tab, 0 extended Refill(s) release calcium 2015-04 Yes 2{tbl} Take 2 Univer [...] 2015-04 Yes 1{tbl} Take 1 Un dhara roanld, 2-28 tablet by ity of Vitamin D3, [...] Simba as tablet 04 (two) Medical times [place] daily. pregabalin 2015-04 Yes 225mg Take 225 Un dhara (LYRICA) 2-28 mg by ity of 225 mg 11:30: mouth 2 [place] capsule 04 (two) Medical times [place] daily. memantine 2015-04 Yes 5mg Take 5 [...] FIDOBAC/ZAHIRA 2-28 tablet by ity of B [place] CON 11:30: mouth 2 [place] (ULTRA 04 [...] FIDOBAC/ZAHIRA 2-28 tablet by ity of B [place] CON 11:30: mouth 2 [place] (ULTRA 04 [...] FIDOBAC/ZAHIRA 2-28 tablet by ity of B [place] CON 11:30: mouth 2 [place] (ULTRA 04 [...] FIDOBAC/ZAHIRA 2-28 tablet by ity of B [place] CON 11:30: mouth 2 [place] (ULTRA 04 [...] Simba as tablet 04 (two) Medical times [place] daily. pregabalin 2015-04 Yes 225mg Take 225 Un dhara (LYRICA) 2-28 mg by ity of 225 mg 11:30: mouth 2 [place] capsule 04 (two) Medical times [place] daily. memantine 2015-04 Yes 5mg Take 5 [...] FIDOBAC/ZAHIRA 2-28 tablet by ity of B [place] CON 11:30: mouth 2 [place] (ULTRA 04 (two) Medical RODOLFO PLUS times Branch ORAL) daily. Indication s: Ultimate Rodolfo Immunizations Ordered Filled Immunization Date Status Comments [facility] e Immunization Name Name SARS-COV-2 COVID-19 2020-07-07 Completed Unive rsity of PFIZER VACCINE 00:00:00 [facility] SARS-COV-2 COVID-19 2020-07-07 Completed Unive rsity of PFIZER VACCINE 00:00:00 [facility] SARS-COV-2 COVID-19 2020-07-07 Completed Unive rsity of PFIZER VACCINE 00:00:00 [facility] SARS-COV-2 COVID-19 2020-07-07 Completed Unive rsity of PFIZER VACCINE 00:00:00 [facility] SARS-COV-2 COVID-19 2020-07-07 Completed Unive rsity of PFIZER VACCINE 00:00:00 [facility] SARS-COV-2 COVID-19 2020-06-16 Completed Unive rsity of PFIZER VACCINE 00:00:00 [facility] SARS-COV-2 COVID-19 2020-06-16 Completed Unive rsity of PFIZER VACCINE 00:00:00 [facility] SARS-COV-2 COVID-19 2020-06-16 Completed Unive rsity of PFIZER VACCINE 00:00:00 [facility] SARS-COV-2 COVID-19 2020-06-16 Completed Unive rsity of PFIZER VACCINE 00:00:00 [facility] SARS-COV-2 COVID-19 2020-06-16 Completed Unive rsity of PFIZER VACCINE 00:00:00 [facility] Vital Signs Vital Name Observation Time Observation Value Comments Source WEIGHT 2020-12-09 06:47:00 97.478 kg WEIGHT 2020-12-03 23:00:00 98.839 kg HEIGHT 2020-12-03 22:25:00 160 cm WEIGHT 2020-12-03 22:25:00 100.562 kg Systolic blood 2021-07-24 19:34:00 115 mm[Hg] Univer sity of pressure [facility] Diastolic blood 2021-07-24 19:34:00 59 mm[Hg] Unive rsity of pressure [facility] Heart rate 2021-07-24 19:34:00 56 /min [facility] Body height 2021-07-24 19:34:00 160 cm [facility] Body weight 2021-07-24 19:34:00 102.513 kg [facility] BMI 2021-07-24 19:34:00 40.03 kg/m2 [facility] WEIGHT 2020-12-09 06:47:00 97.478 kg WEIGHT 2020-12-03 23:00:00 98.839 kg HEIGHT 2020-12-03 22:25:00 160 cm WEIGHT 2020-12-03 22:25:00 100.562 kg Systolic (mm Hg) 2021-09-24 21:20:00 Johan Arzate Diastolic (mm Hg) 2021-09-24 21:20:00 Mem orial Lyle Heart Rate 2021-09-24 21:20:00 [facility] [place] Respitory Rate 2021-09-24 21:20:00 Memori al Lyle Systolic (mm Hg) 2021-04-23 22:09:00 Johan rial Lyle Diastolic (mm Hg) 2021-04-23 22:09:00 Mem orial Lyle Heart Rate 2021-04-23 22:09:00 [facility] [place] Respitory Rate 2021-04-23 22:09:00 Memori al [place]yle Systolic (mm Hg) 2021-03-29 16:49:00 Johan rial Lyle Diastolic (mm Hg) 2021-03-29 16:49:00 Mem orial Lyle Heart Rate 2021-03-29 16:49:00 [facility] Lyle Respitory Rate 2021-03-29 16:49:00 Memori al [place] Heart rate 2020-12-09 08:01:00 56 /min [facility] Respiratory rate 2020-12-09 08:01:00 16 /min [facility] Oxygen saturation in 2020-12-09 08:01:00 93 /min [facility] Arterial blood by Medical Ce nter Pulse oximetry Systolic blood 2020-12-09 07:00:00 126 mm[Hg] [facility] Diastolic blood 2020-12-09 07:00:00 60 mm[Hg] [facility] Body temperature 2020-12-09 07:00:00 36.61 [facility] Body weight 2020-12-09 06:47:00 97.478 kg [facility] BMI 2020-12-09 06:47:00 38.07 kg/m2 [facility] Body height 2020-12-03 22:25:00 160 cm [facility] Systolic (mm Hg) 2020-11-27 20:24:00 Johan rial Lyle Diastolic (mm Hg) 2020-11-27 20:24:00 Mem orial [place] Heart Rate 2020-11-27 20:24:00 [facility] [place] Respitory Rate 2020-11-27 20:24:00 Memori al [place] Height 2020-11-27 20:24:00 154.94 cm [facility] Weight 2020-11-27 20:24:00 [facility] BMI Calculated 2020-11-27 20:24:00 Memori al [place] Systolic (mm Hg) 2020-08-27 18:30:00 Johan rial Lyle Diastolic (mm Hg) 2020-08-27 18:30:00 Mem orial Lyle Heart Rate 2020-08-27 18:30:00 [facility] [place] Respitory Rate 2020-08-27 18:30:00 Memori al [place] Height 2020-08-27 18:30:00 160.02 cm [facility] Weight 2020-08-27 18:30:00 [facility] BMI Calculated 2020-08-27 18:30:00 Memori al [place] Systolic (mm Hg) 2020-07-23 18:26:00 Johan rial Lyle Heart Rate 2020-07-23 18:26:00 [facility] [place] Respitory Rate 2020-07-23 18:26:00 Memori al [place] Weight 2020-07-23 18:26:00 [facility] [place] Systolic (mm Hg) 2020-06-26 20:30:00 Johan rial Lyle Diastolic (mm Hg) 2020-06-26 20:30:00 Mem orial [place] Heart Rate 2020-06-26 20:30:00 [facility] [place] Respitory Rate 2020-06-26 20:30:00 Memori al [place] Height 2020-06-26 20:30:00 157.48 cm [facility] Weight 2020-06-26 20:30:00 [facility] BMI Calculated 2020-06-26 20:30:00 Memori al Lyle Systolic (mm Hg) 2020-03-28 20:19:00 Johan rial Lyle Diastolic (mm Hg) 2020-03-28 20:19:00 Mem orial Lyle Heart Rate 2020-03-28 20:19:00 [facility] Respitory Rate 2020-03-28 20:19:00 Memori al Lyle Height 2020-03-28 20:19:00 160.02 cm [facility] Weight 2020-03-28 20:19:00 [facility] BMI Calculated 2020-03-28 20:19:00 Memori al Lyle Systolic (mm Hg) 2020-02-27 20:33:00 Johan rial Lyle Diastolic (mm Hg) 2020-02-27 20:33:00 Mem orial [place] Heart Rate 2020-02-27 20:33:00 [facility] Respitory Rate 2020-02-27 20:33:00 Memori al [place] Height 2020-02-27 20:33:00 160.02 cm [facility] Weight 2020-02-27 20:33:00 [facility] BMI Calculated 2020-02-27 20:33:00 Memori al Lyle Systolic (mm Hg) 2020-01-05 20:09:00 Johan rial Lyle Diastolic (mm Hg) 2020-01-05 20:09:00 Mem orial [place] Heart Rate 2020-01-05 20:09:00 [facility] Respitory Rate 2020-01-05 20:09:00 Memori al [place]uey Height 2020-01-05 20:09:00 160.02 cm [facility] Weight 2020-01-05 20:09:00 [facility] BMI Calculated 2020-01-05 20:09:00 [facility] Systolic (mm Hg) 2019-11-24 19:46:00 Johan [facility] Diastolic (mm Hg) 2019-11-24 19:46:00 Mem orial [facility] Heart Rate 2019-11-24 19:46:00 [facility] Respitory Rate 2019-11-24 19:46:00 [facility] Height 2019-11-24 19:46:00 160.02 cm [facility] Weight 2019-11-24 19:46:00 [facility] BMI Calculated 2019-11-24 19:46:00 [facility] Systolic (mm Hg) 2019-09-21 18:37:00 Johan [facility] Diastolic (mm Hg) 2019-09-21 18:37:00 Mem orial [facility] Heart Rate 2019-09-21 18:37:00 [facility] Systolic (mm Hg) 2019-06-21 20:05:00 Johan [facility] Diastolic (mm Hg) 2019-06-21 20:05:00 [facility] Heart Rate 2019-06-21 20:05:00 [facility] Respitory Rate 2019-06-21 20:05:00 [facility] Height 2019-06-21 20:05:00 160.02 cm [facility] Weight 2019-06-21 20:05:00 [facility] BMI Calculated 2019-06-21 20:05:00 [facility] Systolic (mm Hg) 2019-03-22 19:34:00 Johan rial Huey Diastolic (mm Hg) 2019-03-22 19:34:00 [facility] Heart Rate 2019-03-22 19:34:00 [facility] Respitory Rate 2019-03-22 19:34:00 [facility] Height 2019-03-22 19:34:00 160.02 cm [facility] Weight 2019-03-22 19:34:00 [facility] BMI Calculated 2019-03-22 19:34:00 [facility] Systolic (mm Hg) 2018-12-21 19:08:00 Johan [facility] Diastolic (mm Hg) 2018-12-21 19:08:00 [facility] Heart Rate 2018-12-21 19:08:00 [facility] Respitory Rate 2018-12-21 19:08:00 [facility] Height 2018-12-21 19:08:00 160.02 cm [facility] Weight 2018-12-21 19:08:00 [facility] BMI Calculated 2018-12-21 19:08:00 [facility] Procedures Procedure Date / Time Performing Clinician Source Performed EXTERNAL PROVIDER RECORDS 2021-09-04 05:01:00 Doctor Unassigned, [facility] HOME HEALTH - OTHER 2021-05-31 06:01:00 Doctor Unassigned, [facility] [place] HIGH SENSITIVITY TROPONIN 2020-12-08 16:40:00 Perfecto Diaz I [facility] I [facility]d [place] ECG 12-LEAD 2020-12-08 15:59:02 Unknown, Hl7 Doctor [facility] ECG 12-LEAD 2020-12-08 15:59:02 Unknown, Hl7 Doctor [facility] XR CHEST 1 VIEW PORTABLE / 2020-12-08 07:54:00 Kvng Crane [facility] BEDSIDE D. Center CBC W/PLT COUNT & AUTO 2020-12-08 04:39:00 Downs Aundrea, [facility] DIFFERENTIAL Preeya [place] BASIC METABOLIC PANEL (7) 2020-12-08 04:39:00 Downs Aundrea, I [facility] CBC W/PLT COUNT & AUTO 2020-12-08 04:39:00 Downs Aundrea, [facility] DIFFERENTIAL Preeya Center MAGNESIUM 2020-12-08 04:39:00 Downs Aundrea, [facility] B-TYPE NATRIURETIC FACTOR 2020-12-07 03:34:00 Yoko Crane [facility] (BNP) [facility] XR CHEST 1 VIEW PORTABLE / 2020-12-06 13:03:00 Perfecto Diaz [facility] BASIC METABOLIC PANEL (7) 2020-12-06 11:41:00 Perfecto Diaz [facility] MAGNESIUM 2020-12-06 11:41:00 Perfecto Diaz [facility] B-TYPE NATRIURETIC FACTOR 2020-12-06 11:41:00 Perfecto Diaz [facility] (BNP) [facility][Note 3] ECG 12-LEAD 2020-12-05 10:53:46 Dion Mcdonald [facility] TRANSESOPHAGEAL ECHO 2020-12-05 09:39:19 Josh Toribio [facility] CBC W/PLT COUNT & AUTO 2020-12-05 05:17:00 Bishnu [facility] BASIC METABOLIC PANEL (7) 2020-12-05 05:17:00 Arielle Goetz [facility] HEPATIC FUNCTION PANEL 2020-12-05 05:17:00 Bishnu [facility] CBC W/PLT COUNT & AUTO 2020-12-05 05:17:00 Bishnu, [facility] DIFFERENTIAL [facility] CARDIOVERSION 2020-12-05 00:31:19 Josh Toribio [facility] HIGH SENSITIVITY TROPONIN 2020-12-04 18:35:00 Bishnu [facility] 2D ECHO W/ DOPPLER 2020-12-04 14:07:13 Ananda Clint [facility] (CW/PW/COLOR) [facility] CT CHEST FOR PULMONARY 2020-12-04 05:36:[address] [facility] EMBOLUS [facility] XR CHEST 1 VIEW PORTABLE / 2020-12-04 04:08:00 Arielle Goetz [facility] BEDSIDE [facility] SARS-COV2/RT-PCR ([facility] & 2020-12-04 03:48:00 [facility] CBC W/PLT COUNT & AUTO 2020-12-04 03:41:00 [facility] BASIC METABOLIC PANEL (7) 2020-12-04 03:41:00 Bishnu, [place] HEPATIC FUNCTION PANEL 2020-12-04 03:41:00 [facility] CBC W/PLT COUNT & AUTO 2020-12-04 03:41:00 [facility] DIFFERENTIAL [facility] HIGH SENSITIVITY TROPONIN 2020-12-04 03:41:00 Bishnu [facility] B-TYPE NATRIURETIC FACTOR 2020-12-04 03:41:00 [facility] CBC W/PLT COUNT & AUTO 2020-12-03 23:21:00 [facility] DIFFERENTIAL [facility] BASIC METABOLIC PANEL (7) 2020-12-03 23:21:00 [facility] 2020-12-03 23:21:00 Bishnu, [facility] MAGNESIUM 2020-12-03 23:21:00 [facility] PHOSPHORUS 2020-12-03 23:21:00 Bishnu, [facility] PROTHROMBIN TIME/INR 2020-12-03 23:21:00 [facility] CBC W/PLT COUNT & AUTO 2020-12-03 23:21:00 Bishnu, [facility] DIFFERENTIAL [facility] TSH/FREE T4 IF INDICATED 2020-12-03 23:21:00 Bishnu, [facility] HIGH SENSITIVITY TROPONIN 2020-12-03 23:21:00 Bishnu, [facility] I [facility] D-DIMER 2020-12-03 23:21:00 [facility] VITAMIN B12 AND FOLATE 2020-12-03 23:21:00 Bishnu, [facility] ECG 12-LEAD 2020-12-03 23:12:15 Bishnu, [facility] ECG 12-LEAD 2020-12-03 23:07:40 Unknown, Hl7 Doctor [facility] REPORT OF PROCEDURE - 2020-12-03 00:00:00 Provider, [facility] ENDOSCOPY SCAN Scanning Center Plan of Care Planned Activity Planned Date Details Comments Source Future Scheduled 2021-12-19 INFLUENZA VACCINE (#1) C [facility] Test 00:00:00 [code = INFLUENZA Medical Ce nter VACCINE (#1)] Future Scheduled 2021-12-17 HEPATITIS B VACCINES Met [facility] Test 02:08:28 (1 of 3 - 3-dose series) [code = HEPATITIS B VACCINES (1 of 3 - 3-dose series)] Future Scheduled 2021-12-17 SHINGLES VACCINES (1 Met [facility] Test 02:08:28 of 2) [code = SHINGLES VACCINES (1 of 2)] Future Scheduled 2021-12-17 65+ PNEUMOCOCCAL Methodi [facility] Test 02:08:28 VACCINE (1 - PCV) [code = 65+ PNEUMOCOCCAL VACCINE (1 - PCV)] Future Scheduled 2021-12-17 COVID-19 VACCINE (3 - [facility] Test 02:08:28 Booster for Pfizer series) [code = COVID-19 VACCINE (3 - Booster for Pfizer series)] Future Scheduled 2021-12-17 INFLUENZA VACCINE Method ist Hospital Test 02:08:28 [code = INFLUENZA VACCINE] Future Scheduled 2021-04-[address] [facility] Test 00:00:00 WELLNESS (YEAR 2 or Medical Center FIRST YEAR if no IPPE) [code = MEDICARE ANNUAL WELLNESS (YEAR 2 or FIRST YEAR if no IPPE)] Future Scheduled 2021-04-[address] [facility] Test 00:00:00 (12+) [code = Medical Center DEPRESSION SCREENING (12+)] Future Scheduled 2021-04-20 FALLS RISK SCREENING [facility] Test 00:00:00 [code = FALLS RISK Medical C enter SCREENING] Future Scheduled 2020-12-19 INFLUENZA VACCINE (#1) [facility] Test 00:00:00 [code = INFLUENZA Medical Ce nter VACCINE (#1)] Future Scheduled 2020-12-07 COVID-19 VACCINE (3 - [facility] Test 00:00:00 Booster for Pfizer Medical C enter series) [code = COVID-19 VACCINE (3 - Booster for Pfizer series)] Future Scheduled 2020-04-[address] [...] 00:00:00 (1 of 1 - Medical Center [id number] PCV13) [code = PNEUMOCOCCAL 65+ YRS (1 of 1 - [id number] PCV13)] Future Scheduled 2006 PNEUMOCOCCAL 65+ YRS [facility] Test 00:00:00 (1 - PCV) [code = Medical Ce nter PNEUMOCOCCAL 65+ YRS (1 - PCV)] Future Scheduled 1991 SHINGLES VACCINES ([address] [facility] Test 00:00:00 of 2) [code = SHINGLES Medic al Center VACCINES (1 of 2)] Future Scheduled 1991 SHINGLES VACCINES ([address] [facility] Test 00:00:00 of 2) [code = SHINGLES Medic al Center VACCINES (1 of 2)] Future Scheduled 1960-01-25 DTAP/TDAP/TD VACCINES [facility] Test 00:00:00 (1 - Tdap) [code = Medical C enter DTAP/TDAP/TD VACCINES (1 - Tdap)] Future Scheduled 1960-01-25 DTAP/TDAP/TD VACCINES [facility] Test 00:00:00 (1 - Tdap) [code = Medical C enter DTAP/TDAP/TD VACCINES (1 - Tdap)] Future Scheduled 1959 HEPATITIS C SCREENING [facility] Test 00:00:00 [code = HEPATITIS C Medical Center SCREENING] Future Scheduled 1941 DXA SCAN [code = DXA [facility] Test 00:00:00 SCAN] [facility] Future Scheduled [facility]procedure[facility] [code = 624546082] Future Scheduled SHINGLES VACCINES (#1) M ethodist [...] Date/Time Type Type Clinicians Facility Department ID 2022-01-06 Inpatient Amadou Linda [facility] [id number] [facility] 11:30:00 81 [facility] 2021-10-23 Outpatient Kenia Torres [facility] [id number] - Common 10:58:02 [facility] 2021-10-14 Outpatient Kenia Torres [facility] [id number] Common 08:43:01 [facility] 2021-08-26 Outpatient [facility] [id number] Common 16:25:02 [facility] 2021-08-21 Outpatient [facility] [id number] Common 14:23:02 [facility] 2021-05-16 Outpatient 3 [id number] ENCPL OTH ENCPL 13:02:17 1006 2021-05-16 Outpatient 3 [id number] ENCPL REF ENCPL 12:59:17 0929 2021-05-15 Outpatient STLMLC STLMLC [id number] Common 13:11:24 [id number] [facility] 2020-12-03 Inpatient ER NENA [facility] Cardiology [id number] [facility] 22:07:00 DOMINIQUE 2022-03-25 2022-03-25 Outpatient MHIE MHIE [id number] Memoria 15:00:00 15:00:00 23 l [facility] 2021-11-27 2021-11-27 ambulatory STLMLC STLMLC [id number] Common 00:00:00 00:00:00 [facility] 2021-11-06 2021-11-06 ambulatory STLMLC STLMLC [id number] Common 00:00:00 00:00:00 [facility] 2021-10-23 2021-10-23 ambulatory STLMLC STLMLC [id number] Common 00:00:00 00:00:00 [facility] 2021-09-24 2021-09-25 Outpatient nullFlavo MNA [id number] Memoria 21:15:00 04:59:59 r Neurology 19 l Abigail Arzate 2021-09-24 2021-09-24 Outpatient [id number] 16:15:00 23:59:59 Chin 19 Rickey 2021-09-24 2021-09-24 Outpatient MHIE MHIE [id number] Memoria 16:15:00 16:15:00 19 l [place] 2021-09-04 2021-09-04 Orders Doctor STEPHANIE [id number] 00:00:00 00:00:00 Only Unassigned, JANE 350.1.13.10 ity of [place] [facility] 4.2.7.2.686 Simba as [phone] [address] 2021-08-13 2021-08-13 Telephone ABRAN Davidson [id number] Univers 00:00:00 00:00:00 Jonathon WARREN 350.1.13.10 it y [facility] 4.2.7.2.686 Simba as SABRA?BLEA [phone] Mi cong PEREZ [address] [facility] OFFICE [facility] 2021-07-24 2021-07-24 [facility] [id number] Univers 14:30:00 15:15:52 Visit Stefan WARREN 350.1.13.10 it y [facility] 4.2.7.2.686 Simba as SABRA?BLEA [id number] Mi cong PEREZ 198 [facility] 2021-06-04 2021-06-04 Ambulatory nullFlavo MNA [id number] Memoria 20:15:00 20:15:00 Pre-Reg r Neurology 22 l Abigail Arzate 2021-06-04 2021-06-04 Outpatient MHIE DICK [id number] Memoria 14:15:00 14:15:00 22 l Huey 2021-06-04 2021-06-04 Outpatient KATERYNA PatSCHDANIEL MHMISCHER [id number] 14:15:00 14:15:00 Chin 22 [facility] 2021-05-31 2021-05-31 Orders Doctor BROWN [id number] [id number] Univers 00:00:00 00:00:00 Only Unassigned, JANE 350.1.13.10 ity of [place] [facility] 4.2.7.2.686 Simba as [phone] [address] 2021-05-07 2021-05-08 Outpatient nullFlavo MNA [id number] Memoria 19:15:00 05:59:59 r Neurology 21 l Abigail Arzate 2021-05-07 2021-05-07 Outpatient FERMIN PatMISCHDANIEL MHMISCHER [id number] 13:15:00 23:59:59 Chin 21 [facility] 2021-05-07 2021-05-07 Outpatient MHIE DICK [id number] Memoria 13:15:00 13:15:00 21 jm Arzate 2021-04-23 2021-04-24 Outpatient nullFlavo MNA [id number] Memoria 22:00:00 05:59:59 r Neurology 20 l Abigail Arzate 2021-04-23 2021-04-23 Outpatient Adilia [facility] [id number] 16:00:00 23:59:59 Chin 20 Rickey 2021-04-23 2021-04-23 Outpatient MHIE MHIE [id number] Memoria 16:00:00 16:00:00 20 l Huey 2021-03-29 2021-03-30 Outpatient nullFlavo MNA [id number] Memoria 17:00:00 05:59:59 r Neurology 18 l Abigail Arzate 2021-03-29 2021-03-29 Outpatient Adilia, [facility]ER [id number] 11:00:00 23:59:59 Chin 18 Rickey 2021-03-29 2021-03-29 Outpatient MHIE MHIE [id number] Memoria 11:00:00 11:00:00 18 jm Huey 2020-12-31 2020-12-31 [facility] [id number] 00:00:00 00:00:00 [facility] 2020-12-03 2020-12-09 [id number] 22:07:00 12:43:00 Encounter Arielle Goetz, [place] Jeannie [facility] 2020-12-08 2020-12-08 Orders [facility] [id number] 00:00:00 00:00:00 Only [facility] 2020-12-05 2020-12-05 Outpatient [facility] [id number] [facility] 00:00:00 23:59:00 Saumya 2020-12-04 2020-12-[address] [facility] [id number] [facility] 00:[facility] 00:00:00 [facility] 2020-11-27 2020-11-28 Outpatient nullFlavo MNA [id number] Memoria 20:15:00 04:59:59 r Neurology 17 l Meade Huey 2020-11-27 2020-11-27 Outpatient JOSE Pat [facility] [id number] 15:15:00 23:59:59 Chin 17 Rickey 2020-11-27 2020-11-27 Outpatient MHIE MHIE [id number] Memoria 15:15:00 15:15:00 17 jm Lyle 2020-09-25 2020-09-25 Ambulatory nullFlavo MNA [id number] Memoria 19:30:00 19:30:00 Pre-Reg r Neurology 14 l Meade Huey 2020-09-25 2020-09-25 Outpatient MHIE MHIE [id number] Memoria 14:30:00 14:30:00 14 jm Lyle 2020-09-25 2020-09-25 Outpatient KATERYNA PatSCHDANIEL MISCHER [id number] 14:30:00 14:30:00 Chin 14 Rickey 2020-08-27 2020-08-28 Outpatient nullFlavo MNA [id number] Memoria 18:15:00 04:59:59 r Neurology 16 l Abigail Arzate 2020-08-27 2020-08-27 Outpatient JOSE Pat [facility] [id number] 13:15:00 23:59:59 Chin 16 Rickey 2020-08-27 2020-08-[address]1 [id number] Methodi 08:36:31 23:59:00 Encounter Renan [id number] 3.430.2.7 Hospit a .3.322349 l .8 2020-08-27 2020-08-27 Outpatient MHIE MHIE [id number] Memoria 13:15:00 13:15:00 16 jm Huey 2020-07-23 2020-07-24 Outpatient nullFlavo MNA [id number] Memoria 18:15:00 04:59:59 r Neurology 15 l Abigail Arzate 2020-07-23 2020-07-23 Outpatient KATERYNA PatSCHDANIEL MISCHER [id number] 13:15:00 23:59:59 Chin 15 Rickey 2020-07-23 2020-07-23 Outpatient MHIE MHIE [id number] Memoria 13:15:00 13:15:00 15 jm Arzate 2020-07-03 2020-07-03 Office [facility], 1.2.840.1 [id number] Methodi 13:03:28 13:29:49 Visit Renan 81030.1.[address] 3.430.2.7 Hospit a .3.577715 l .8 2020-07-03 2020-07-03 Travel 1.2.840.1 1.2.899.119 [id number] Methodi 00:00:00 00:00:[address] 3.430.2.7 0.2.7.3.698 Ho spita .3.756146 084.8 l .8 2020-06-26 2020-06-27 Outpatient nullFlavo MNA [id number] Memoria 20:30:00 05:59:59 r Neurology 13 Abigail Arzate 2020-06-26 2020-06-26 Outpatient KATERYNA PatSCHER MHMISCHER [id number] 14:30:00 23:59:59 Chin 13 Rickey 2020-06-26 2020-06-26 Outpatient MHIE MHIE [id number] Memoria 14:30:00 14:30:00 13 jm Huey 2020-05-08 2020-05-08 Outpatient MHIE MHIE [id number] Memoria 14:00:00 14:00:00 10 jm Arzate 2020-03-28 2020-03-29 Outpatient nullFlavo MNA [id number] Memoria 20:15:00 05:59:59 r Neurology 12 jm Arzate 2020-03-28 2020-03-28 Outpatient FERMIN PatMISCHER MHMISCHER [id number] 14:15:00 23:59:59 Chin 12 Rickey 2020-03-28 2020-03-28 Outpatient MHIE MHIE [id number] Memoria 14:15:00 14:15:00 12 jm Arzate 2020-02-27 2020-02-28 Outpatient nullFlavo MNA [id number] Memoria 20:15:00 05:59:59 r Neurology 11 l Abigail Arzate 2020-02-27 2020-02-27 Outpatient Adilia [facility]ISCHER MISCHER [id number] 14:15:00 23:59:59 Chin 11 Rickey 2020-02-27 2020-02-27 Outpatient MHIE MHIE [id number] Memoria 14:15:00 14:15:00 11 l Huey 2020-01-05 2020-01-06 Outpatient nullFlavo MNA [id number] Memoria 20:00:00 04:59:59 r Neurology 09 l Abigail Pennann 2020-01-05 2020-01-05 Outpatient [facility]ilia [facility] [id number] 15:00:00 23:59:59 Chin 09 Rickey 2020-01-05 2020-01-05 Outpatient MHIE MHIE [id number] Memoria 15:00:00 15:00:00 09 jm PennLyle 2019-11-24 2019-11-25 Outpatient nullFlavo MNA [id number] Memoria 19:30:00 04:59:59 r Neurology 08 l Abigail Pennann 2019-11-24 2019-11-24 Outpatient Adilia [facility] [id number] 14:30:00 23:59:59 Chin 08 Rickey 2019-11-24 2019-11-24 Ambulatory nullFlavo MNA [id number] Memoria 19:30:00 19:30:00 Pre-Reg r Neurology 07 l Abigail Pennann 2019-11-24 2019-11-24 Outpatient MHIE MHIE [id number] Memoria 14:30:00 14:30:00 08 jm Huey 2019-11-24 2019-11-24 Outpatient MHIE MHIE [id number] Memoria 14:30:00 14:30:00 07 jm ePnnLyle 2019-11-24 2019-11-24 Outpatient FERMIN PatMISCHER MISCHER [id number] 14:30:00 14:30:00 Chin 07 Rickey 2019-09-21 2019-09-22 Outpatient nullFlavo MNA [id number] Memoria 18:30:00 04:59:59 r Neurology 06 jm Arzate 2019-09-21 2019-09-21 Outpatient Adilia, MHMISCHER MHMISCHER [id number] 13:30:00 23:59:59 Chin 06 Rickey 2019-09-21 2019-09-21 Outpatient MHIE MHIE [id number] Memoria 13:30:00 13:30:00 06 jm Lyle 2019-06-21 2019-06-22 Outpatient nullFlavo MNA [id number] Memoria 19:45:00 05:59:59 r Neurology 05 jm Arzate 2019-06-21 2019-06-21 Outpatient Adilia, MHMISCHER MHMISCHER [id number] 13:45:00 23:59:59 Chin Morena Lang 2019-06-21 2019-06-21 Outpatient MHIE MHIE [id number] Memoria 13:45:00 13:45:00 05 jm Huey 2019-03-22 2019-03-23 Outpatient nullFlavo MNA [id number] Memoria 19:30:00 05:59:59 r Neurology 04 jm Hayes Huey 2019-03-22 2019-03-22 Outpatient Lucasban, MHMISCHER MHMISCHER [id number] 13:30:00 23:59:59 Chin Tanika Rickey 2019-03-22 2019-03-22 Outpatient MHIE MHIE [id number] Memoria 13:30:00 13:30:00 04 jm Huey 2018-12-21 2018-12-22 Outpatient nullFlavo MNA [id number] Memoria 19:15:00 04:59:59 r Neurology 03 jm Meade Huey 2018-12-21 2018-12-21 Outpatient Adilia, MHMISCHER MHMISCHER [id number] 14:15:00 23:59:59 Chin Maylin Rickey 2018-12-21 2018-12-21 Outpatient MHIE MHIE [id number] Memoria 14:15:00 14:15:00 03 jm Arzate 2018-06-22 2018-06-22 Outpatient MHIE MHIE [id number] Memoria 13:45:00 13:45:00 02 jm Arzate 2017-12-22 2017-12-22 Outpatient MHIE MHIE [id number] Memoria 13:30:00 13:30:00 jm Arzate 2017-08-14 2017-08-14 Outpatient [facility] [id number] Memoria 14:30:00 14:30:00 jm Arzate Results Test Description Test Time Test Comments Results Result Comments Source CHEM PANEL 2021-09-25 15:57:00 Test Item Value Reference Range Interpretation Comme nts BUN (test code = BUN) 20 7- [facility] [id number] 15:57:00 Test Item Value Reference Range Interpretation Comments Creatinine Lvl (test code = Creatinine 1.21 0.60-0.88 Lvl) [facility] [id number] 15:57:00 Test Item Value Reference Range Interpretation Comments eGFR NON-AFR. GAMBIAN (test code = 42 eGFR NON-AFR. GAMBIAN) [facility] [id number] 15:57:00 Test Item Value Reference Range Interpretation Comments eGFR (test code = eGFR 49 ) [facility] [id number] 15:57:00 Test Item Value Reference Range Interpretation Comments B/C Ratio (test code = B/C Ratio) 17 6[facility]xim[facility]zwIPCFGKMJSEYQ2564-87-17 15:57:00 Test Item Value Reference Range Interpretation Comments Sodium Lvl (test code = Sodium Lvl) 138 135-146 [facility]-30 15:57:00 Test Item Value Reference Range Interpretation Comments Potassium Lvl (test code = Potassium 4.5 3.5-5.3 Lvl) [facility] CenterYtvdacgPJIIPGAIKNZB0548-78-66 15:57:00 Test Item Value Reference Range Interpretation Comments Chloride Lvl (test code = Chloride Lvl) 106 98-[address] [facility] CenterHnpojflSIZREQDVICDS9691-52-50 15:57:00 Test Item Value Reference Range Interpretation Comments CO2 (test code = CO2) 21 -32 [facility]xlxSIVTWSDBSS7226-40-91 15:57:00 Test Item Value Reference Range Interpretation Comments WBC X 10x3 (test code = WBC X 10x3) 7.0 3.8-10.8 [facility]XetomslDMBSGTMPGH2787-54-09 15:57:00 Test Item Value Reference Range Interpretation Comments RBC X 10x6 (test code = RBC X 10x6) 4.65 3.80-5.10 [place] [id number] 15:57:00 Test Item Value Reference Range Interpretation Comments Hgb (test code = Hgb) 14.7 11.7-15.5 [facility] SouthIgjmmhoBYWFSZXLZK7552-73-90 15:57:00 Test Item Value Reference Range Interpretation Comments Hct (test code = Hct) 45.1 35.0-45.0 [facility] SouthXykgjwzNZFDKIMSDI6787-27-51 15:57:00 Test Item Value Reference Range Interpretation Comments MCV (test code = MCV) 97.0 80.0-100.0 [facility] SouthQdofhaeWIVXFTNULT3034-54-73 15:57:00 Test Item Value Reference Range Interpretation Comments MCH (test code = MCH) 31.6 pg 27.0-33.0 [facility] SouthXrgjotmJXZBZCEGXA9473-48-99 15:57:00 Test Item Value Reference Range Interpretation Comments MCHC (test code = MCHC) 32.6 32.0-36.0 [facility] SouthCqejfmnUAJHLHLWXM8320-56-19 15:57:00 Test Item Value Reference Range Interpretation Comments RDW (test code = RDW) 12.9 11.0-15.0 [facility] SouthPlteymsGIJHYJUTRS4134-75-39 15:57:00 Test Item Value Reference Range Interpretation Comments Platelet (test code = Platelet) 241 140-400 [facility] SouthNsswhrrBUUUTHRZFT8196-87-85 15:57:00 Test Item Value Reference Range Interpretation Comments MPV (test code = MPV) 10.9 7.5-12.5 [facility] SouthIijcdnrEWIVHJQCLJ7846-57-77 15:57:00 Test Item Value Reference Range Interpretation Comments Neutrophils # (test code = Neutrophils 4060 4748-7343 #) [facility] SouthElznkywAPPQXDFAJI7593-50-97 15:57:00 Test Item Value Reference Range Interpretation Comments Lymphocytes # (test code = Lymphocytes 2191 850-3900 #) [facility] SouthXvhphxmVFGUYTHYDP9337-99-77 15:57:00 Test Item Value Reference Range Interpretation Comments Monocytes # (test code = Monocytes #) 511 200-950 [facility] SouthXxedakgVRSJVYSDQK2910-76-80 15:57:00 Test Item Value Reference Range Interpretation Comments Eosinophils # (test code = Eosinophils 161 15-500 #) [facility] SouthJbqvsawCPLDUZZEPW4003-55-71 15:57:00 Test Item Value Reference Range Interpretation Comments Basophils # (test code 77 See_Comment [Aut omated message] The = Basophils #) system which generated this result tra nsmitted reference range : <=200. The reference r guillaume was not used to int erpret this result as normal/abnormal . [facility] SouthBfspxtpUJYSGUVNRI8227-15-28 15:57:00 Test Item Value Reference Range Interpretation Comments Segs (test code = Segs) 58 [facility] SouthGumblamCRRKNLIFEG7787-03-74 15:57:00 Test Item Value Reference Range Interpretation Comments Lymphocytes (test code = Lymphocytes) 31.3 [facility] SouthQbnzlbrYPNWQRCNDY4191-83-24 15:57:00 Test Item Value Reference Range Interpretation Comments Monocytes (test code = Monocytes) 7.3 [facility] SouthGgdrxpeHJPIYZDRIY2394-35-81 15:57:00 Test Item Value Reference Range Interpretation Comments Eosinophils (test code = Eosinophils) 2.3 [facility] SouthUujequsMMGUXCXAWP8801-96-76 15:57:00 Test Item Value Reference Range Interpretation Comments Basophils (test code = Basophils) 1.1 [facility] Sensitivity Troponin I ([facility]/Genna Only)2020-12-08 17:20:00 Test Item Value Reference Range Interpretation Comments Troponin I HS (test 6 pg/ml See_Comment [Automa vanesa code = 76004-8) message] The system which generated this result transmitted reference range : <=17. The reference range was not used to interpret this result as normal/abnormal . GERALD (test code = Medical Records Receptionist ID - GERALD) DBThe SHOP FITTER STAT High Sensitivity Troponin-I results should be used in conjunction with other diagnostic information such as ECG, clinical observations and information, and patient symptoms to aid in the diagnosis of MO. Lab Interpretation Normal (test code = 40125-3) [facility] TROPONIN [id number] 17:20:00 Test Item Value Reference Range Interpretation Comments HIGH SENSITIVITY 6 pg/ml See_Comment [Automated message] TROPONIN I (test code = The system which [id number]) generated this result transmitted ref erence range: <=17. Th e reference range was not used to interpr et this result as normal/abnormal . Medical Records Receptionist ID - DBThe SHOP FITTER STAT High Sensitivity Troponin-I results should be used in conjunctionwith other diagnostic information such as ECG, clinical observations and information, and patient symptoms to aid in the diagnosis of MO.RAD, CHEST, 1 VIEW, NON [id number] 10:23:00Reason for exam:->pulm edemaShould this be performed at the bedside?->Yes [facility] 1940 Sex: FFINAL REPORT HISTORY: Pulmonary edema COMPARISON: 12/06/2020 FINDINGS: Mild interstitial pulmonary edema. No pleural effusions or pneumothorax. The heart shadow is borderline enlarged. The thoracic aorta is mildly tortuous. There are postoperative changes in the cervical spine. A right shoulder arthroplasty is partially imaged. Signed: Kenia Renort Verified Date/Time: 12/08/2020 10:23:36 Reading Location: [address] Transitional Reading Room Basic Metabolic [id number] 05:46:00 Test Item Value Reference Range Interpretation Comments Sodium (test code = 140 meq/L 707-789 5588-2) Potassium (test code = 3.4 meq/L 3.5-5.1 L 2823-3) Chloride (test code = 108 meq/L 98-107 H 2075-0) CO2 (test code = 25 meq/L 22-29 8-9) BUN (test code = 11 mg/dL - 3094-0) Creatinine (test code 1.12 mg/dL 0.57-1.25 = 2160-0) Glucose (test code = 113 mg/dL 70-105 H 2345-7) Calcium (test code = 8.9 mg/dL 8.4-10.2 21255-5) EGFR (test code = 47 mL/min/1.73 [place] [address]-1) NOT ACCURATE CREATININE CLEARANCE IN PREDICTING GLOMERULAR FILTRATION RATE . ESTIMATED GFR I S NOT APPLICABLE FOR DIALYSIS PATIENTS. GERALD (test code = GERALD) Medical Records Receptionist ID - EMIL Field Lab Interpretation Abnormal (test code = 62627-3) [facility] CenterMagnesium2021-08-21 05:46:00 Test Item Value Reference Range Interpretation Comments Magnesium (test code = 1.7 mg/dL 1.6-2.6 07687-0) GERALD (test code = GERALD) Medical Records Receptionist ID - EMIL Field Lab Interpretation (test Normal code = 29777-3) [facility] CenterBASIC METABOLIC [id number] 05:46:00 Test Item Value Reference Range Interpretation [...] S NOT APPLICABLE FOR DIALYSIS PATIEN TS. Medical Records Receptionist ID - EMIL [id number] 05:46:00 Test Item Value Reference Range Interpretation Comments MAGNESIUM (BEAKER) (test code = 1.7 mg/dL 1.6-2.6 627) Medical Records Receptionist ID - EMIL MCBC with platelet count + automated [id number] 05:04:00 Test Item Value Reference Range Interpretation Comments WBC (test code = 6690-2) 5.7 See_Comment [A utomated message] The system [employer] generated this result transmitted ref erence range: 3.5 - 10 .5 K/L. The refe rence range was not u sed to interpret this result as normal/abnor mal. RBC (test code = 789-8) 3.85 See_Comment L [Au tomated message] The system [employer] generated this result transmitted ref erence range: 3.93 - 5 .22 M/L. The refe rence range was not u sed to interpret this result as normal/abnor mal. MCHC (test code = 786-4) 30.9 See_Comment L [A utomated message] The system [employer] generated this result transmitted ref erence range: [...] See_Comment [Aut omated message] 777-3) The system [employer] generated this result transmitted ref erence range: 150 - 45 0 K/CU MM. The referen ce range was not u sed to interpret this result as normal/abnor mal. MPV (test code = 9.5 fL 9.4-12.3 92819-0) nRBC (test code = 413) 0 See_Comment [Aut omated message] The system [employer] generated this result transmitted ref erence range: [...] See_Comment [Aut omated message] 670) The system [employer] generated this result transmitted ref erence range: 1.56 - 6 .13 K/L. The refe rence range was not u sed to interpret this result as normal/abnor mal. # Lymphs (test code = 1.83 See_Comment [Auto mated message] 414) The system [employer] generated this result transmitted ref erence range: 1.18 - 3 .74 K/L. The refe rence range was not u sed to interpret this result as normal/abnor mal. # Monos (test code = 0.60 See_Comment H [Autom ated message] 415) The system [employer] generated this result transmitted ref erence range: 0.24 - 0 .36 K/L. The refe rence range was not u sed to interpret this result as normal/abnor mal. # Eos (test code = 416) 0.26 See_Comment [Au tomated message] The system [employer] generated this result transmitted ref erence range: 0.04 - 0 .36 K/L. The refe rence range was not u sed to interpret this result as normal/abnor mal. # Baso (test code = 417) 0.05 See_Comment [A utomated message] The system [employer] generated this result transmitted ref erence range: 0.01 - 0 .08 K/L. The refe rence range was not u sed to interpret this result as normal/abnor mal. Immature 1 % 0-1 Granulocytes-Relative (test code = 2801) Lab Interpretation (test Abnormal code = 48951-2) [facility] W/PLT COUNT & AUTO [id number] 05:04:00 Test Item Value Reference Range Interpretation [...] Range Interpretation Comments BNP (test code = 91994-4) 97 pg/mL 0-100 GERALD (test code = GERALD) Medical Records Receptionist ID - PIAYA L Lab Interpretation (test Normal code = 71948-1) [facility] CenterB-TYPE NATRIURETIC FACTOR (BNP)2020-12-07 04:52:00 Test Item Value Reference Range Interpretation Comments B-TYPE NATRIURETIC PEPTIDE (BEAKER) 97 pg/mL 0-100 (test code = 700) Medical Records Receptionist ID - PIAYA LRAD, CHEST, 1 VIEW, NON [id number] 14:01:00Reason for exam:->dyspneaShould this be performed at the bedside?->Yes [facility] : 1940 Sex: FFINAL REPORT CLINICAL HISTORY: dyspnea TECHNIQUE: 1 view of the chest. COMPARISON: 12/04/2020 IMPRESSION: Pulmonary vascular congestion is again seen with slightly increased prominence of the interstitial lung markings bilaterally. There is no focal lobar consolidation or significantpleural fluid. The cardiomediastinal silhouette is magnified by technique. Cervical fusion hardware right shoulder hardware is again seen. Signed: Lacy Donaldeport Verified Date/Time: 12/06/2020 14:01:32 Reading Location: [facility] Radiology Reading Room BASI METABOLIC [id number] 12:22:00 Test Item Value Reference Range Interpretation [...] S NOT APPLICABLE FOR DIALYSIS PATIEN TS. Medical Records Receptionist ID - [id number] 12:22:00 Test Item Value Reference Range Interpretation Comments MAGNESIUM (BEAKER) (test code = 1.7 mg/dL 1.6-2.6 627) Medical Records Receptionist ID - EMERSONB-TYPE NATRIURETIC FACTOR (BNP)2020-12-06 12:13:00 Test Item Value Reference Range Interpretation Comments B-TYPE NATRIURETIC PEPTIDE (BEAKER) 88 pg/mL 0-100 (test code = 700) Medical Records Receptionist ID - EMERSONTransesophageal [id number] 21:25:57Ejection FractionSLEH ECHO HEARTLAB MKCKESSON CPASeton Medical CenterHepatic function [id number] 06:35:00 Test Item Value Reference Range Interpretation Comments Protein, Total (test 5.4 See_Comment L [Autom ated code = 2885-2) message] The system which generated this result transmit vanesa reference range : 6.0 - 8.3 gm/dL . The reference range was not u sed to interpret th is result as normal/abnormal . Albumin (test code = 2.7 g/dL 3.5-5.0 L 26976-8) Total Bilirubin (test 0.1 mg/dL 0.2-1.2 L code = 1975-2) Bilirubin, Direct 0.1 mg/dL 0.1-0.5 (test code = 1968-7) Alkaline Phosphatase 80 U/L 40-150 (test code = 6768-6) AST (test code = 15 U/L 5-34 1920-8) ALT (test code = 8 U/L 6-55 1742-6) GERALD (test code = GERALD) Medical Records Receptionist ID - JENNY L Lab Interpretation Abnormal (test code = 91067-2) [facility] CenterBASIC METABOLIC [id number] 06:35:00 Test Item Value Reference Range Interpretation [...] S NOT APPLICABLE FOR DIALYSIS PATIEN TS. Medical Records Receptionist ID - PIAYA LHEPATIC FUNCTION [id number] 06:35:00 Test Item Value Reference Range Interpretation [...] (test code = 8 U/L 6-55 347) Medical Records Receptionist ID - PIAYA LCBC W/PLT COUNT & AUTO [id number] 05:44:00 Test Item Value Reference Range Interpretation [...] Comments SARS-COV2/RT-PCR (test Negative Negative code = 22858-4) GERALD (test code = GERALD) Negative result [...] Healthcare Providers:https://www.ric carrillo/bebo/RT SARS-CoV-2 HCP Fact Sheet 51-336405.pdf Fact Sheet for Healthcare Patients:https://www.abdullahi ramirez.campos/bebo/RT SARS-CoV-2 Patient Fact Sheet EN 51-694968F6.pdf Lab Interpretation Normal (test code = 08924-8) [facility])2020-12-04 23:22:00 Test Item Value Reference Range Interpretation Comments SARS-COV2/RT-PCR (test code = Negative Negative 0017108) Negative result for this test determines that [...] 564(g) of the Act.Testing was performed using [employer] SARS-CoV-2 assay.Fact Sheet for Healthcare Providers:https://www.[employer].campos/bebo/RT SARS-CoV-2 HCP Fact Sheet 51- 539890.pdfFact Sheet for Healthcare Patients:https://www.[employer].campos/bebo/RT SARS-CoV-2 Patient Fact Sheet EN 51-516547N3.pdfHIGH SENSITIVITY TROPONIN I 2020-12-04 19:21:00 Test Item Value Reference Range Interpretation Comments HIGH SENSITIVITY 8 pg/ml See_Comment [Automated message] TROPONIN I (test code = The system which 2359134) generated this result transmitted ref erence range: <=17. Th e reference range was not used to interpr et this result as normal/abnormal . Medical Records Receptionist MARÍA - geri Mann SHOP FITTER STAT High Sensitivity Troponin-I results should be used in conjunction with other diagnostic information such as ECG, clinical observations and information, and patient symptoms to aid in the diagnosis of MO.2D Echo W/Doppler(CW/PW/Color)2020-12-04 17:56:11Ejection FractionSLEH ECHO HEARTLAB MKCKESSON CPACSCHI [facility]CT, CHEST WITH IV CONTRAST- PE TEST [id number] 06:05:00Unlisted Reason for Exam - Click Yes and Enter Reason Below->No [facility] 1940 Sex: FFINAL REPORT [...] PET/CT, or tissue sampling. Signed: Cosme Alvarez [facility] Verified Date/Time: 12/04/2020 06:05:30 THEALTHEPATIC FUNCTION [id number] 06:00:00 Test Item Value Reference Range Interpretation [...] (test code = 7 U/L 6-55 347) Medical Records Receptionist ID - EMIL MOperator ID - PIAYA LBASIC METABOLIC [id number] 05:13:00 Test Item Value Reference Range Interpretation [...] S NOT APPLICABLE FOR DIALYSIS PATIEN TS. Medical Records Receptionist ID - EMIL MVitamin B12 and [id number] 04:44:00 Test Item Value Reference Range Interpretation Comments Vitamin B12 (test 272 pg/mL 213-816 code = 2132-9) Folate (test code = 7.70 ng/mL See_Comment [Automa vanesa 2284-8) message] The system which generated this result transmit vanesa reference range : >=7.00. The reference range was not used to interpret this result as normal/abnormal . GERALD (test code = GEARLD) Medical Records Receptionist ID - EMIL Field Lab Interpretation Normal (test code = 11926-5) [facility] CenterVITAMIN B12 AND [id number] 04:44:00 Test Item Value Reference Range Interpretation Comments VITAMIN B12 (BEAKER) 272 pg/mL 213-816 (test code = 774) FOLATE (BEAKER) 7.70 ng/mL See_Comment [Automated message] (test code = 362) The system which generated this result transmitted ref erence range: >=7.00. The reference range was not used to interpr et this result as normal/abnormal . Medical Records Receptionist ID - EMIL MRAD, CHEST, 1 VIEW, NON [id number] 04:41:00Reason for exam:->afibShould this be performed at the bedside?->Yes [facility] : 1940 Sex: FFINAL REPORT EXAM/TECHNIQUE: Single view frontal radiograph of the chest. INDICATION: Atrial fibrillation. COMPARISON: None. FINDINGS: Devices/Objects: None. Lungs: No focal consolidation. No pleural effusion. No pneumothorax. Heart/Mediastinum: No cardiomegaly. Mild interstitial thickening. Osseous: No acute osseous process. No suspicious osseous lesion. Upper abdomen: Unremarkable. Impression: Mild interstitial thickening may represent interstitial pulmonary edema. Signed: Cosme Alvarez [facility] Hospitalort Verified Date/Time: 12/04/2020 04:41:03 HIGH SENSITIVITY TROPONIN [id number] 04:36:00 Test Item Value Reference Range Interpretation Comments HIGH SENSITIVITY 8 pg/ml See_Comment [Automated message] TROPONIN I (test code = The system which 2231780) generated this result transmitted ref erence range: <=17. Th e reference range was not used to interpr et this result as normal/abnormal . Medical Records Receptionist ID - EMIL MThe SHOP FITTER STAT High Sensitivity Troponin-I results should be used in conjunction with other diagnostic information such as ECG, clinical observations and information, and patient symptoms to aid in the diagnosis of MO.B-TYPE NATRIURETIC FACTOR (BNP)2020-12-04 04:27:00 Test Item Value Reference Range Interpretation Comments B-TYPE NATRIURETIC PEPTIDE (BEAKER) 144 pg/mL 0-100 H (test code = 700) Medical Records Receptionist ID - EMIL MCBC W/PLT COUNT & AUTO [id number] 04:01:00 Test Item Value Reference Range Interpretation [...] (test code = 2801) TSH/Free T4 If [id number] 00:19:00 Test Item Value Reference Range Interpretation Comments TSH (test code = 1.723 See_Comment [Automated 34871-3) message] The system which generated this result transmit vanesa reference range : 0.350 - 4.940 uIU/mL. The reference range was not used to interpret this result as normal/abnormal . GERALD (test code = GERALD) Medical Records Receptionist ID - JENNY Bush Lab Interpretation Normal (test code = 50253-1) [facility] CenterTSH/FREE T4 IF [id number] 00:19:00 Test Item Value Reference Range Interpretation Comments THYROID STIMULATING HORMONE 1.723 uIU/mL 0.350-4.940 (BEAKER) (test code = 772) Medical Records Receptionist ID - JENNY ARELLANOIGH SENSITIVITY TROPONIN [id number] 00:02:00 Test Item Value Reference Range Interpretation Comments HIGH SENSITIVITY 7 pg/ml See_Comment [Automated message] TROPONIN I (test code = The system which 9412653) generated this result transmitted ref erence range: <=17. Th e reference range was not used to interpr et this result as normal/abnormal . Medical Records Receptionist ID - DBThe SHOP FITTER STAT High Sensitivity Troponin-I results should be used in conjunctionwith other diagnostic information such as ECG, clinical observations and information, and patient symptoms to aid in the diagnosis of MO.[id number] 23:58:00 Test Item Value Reference Range Interpretation Comments Phosphorus (test code = 3.3 mg/dL 2.3-4.7 2777-1) GERALD (test code = GERALD) Medical Records Receptionist ID - DB Lab Interpretation (test Normal code = 42846-8) [facility] METABOLIC [id number] 23:58:00 Test Item Value Reference Range Interpretation [...] S NOT APPLICABLE FOR DIALYSIS PATIEN TS. Medical Records Receptionist ID - [id number] 23:58:00 Test Item Value Reference Range Interpretation Comments MAGNESIUM (BEAKER) (test code = 1.7 mg/dL 1.6-2.6 627) Medical Records Receptionist ID - [id number] 23:58:00 Test Item Value Reference Range Interpretation Comments PHOSPHORUS (BEAKER) (test code = 3.3 mg/dL 2.3-4.7 604) Medical Records Receptionist ID - DBHEPATIC FUNCTION [id number] 23:58:00 Test Item Value Reference Range Interpretation [...] (test code = 9 U/L 6-55 347) Medical Records Receptionist ID - MSO-lgtsf2962-33-16 23:42:00 Test Item Value Reference Range Interpretation Comments D-Dimer, Quant (test 1.26 See_Comment H [Autom ated code = 89338-4) message] The system which generated this result [...] range. Lab Interpretation Abnormal (test code = 22265-1) [facility] CenterD-[id number] 23:42:00 Test Item Value Reference Range Interpretation [...] of thrombosis is within 95-100% range. Prothrombin time/[id number] 23:39:00 Test Item Value Reference Interpretation Comments [...] valves. Lab Interpretation Abnormal (test code = 53618-7) [facility] CenterPROTHROMBIN TIME/[id number] 23:39:00 Test Item Value Reference Range Interpretation Comments PROTIME (BEAKER) 15.4 seconds 11.9-14.2 H (test code = 759) INR (BEAKER) (test 1.24 See_Comment [Automat ed message] code = 370) The system [employer] generated this result transmitted ref erence range: <=5.90. The reference range was not used to int erpret this result as normal/abnormal . RECOMMENDED COUMADIN/WARFARIN INR THERAPY RANGESSTANDARD DOSE: 2.0 - 3.0 Includes: PROPHYLAXIS for venous thrombosis, systemic embolization; TREATMENT for venous thrombosis and/or pulmonary embolus.HIGH RISK: Target INR is 2.5-3.5 for patients with mechanical heart valves.CBC W/PLT COUNT & AUTO [id number] 23:32:00 Test Item Value Reference Range Interpretation [...]
--- NOTE | 2021-12-30 15:47 | RAD REPORT ---
EXAM DESCRIPTION: CT - Head C Spine Cap Wo Con - 12/30/2021 3:31 pm CLINICAL HISTORY: Head and neck injury with chest and abdominal pain status post fall TECHNIQUE: Computed axial tomography of head, neck, chest, abdomen and pelvis obtained. IV and oral contrast not requested. Coronal and sagittal reconstruction performed. All CT scans are performed using dose optimization technique as appropriate and may include automated exposure control or mA/KV adjustment according to patient size. COMPARISON: November 2021 FINDINGS: An intracranial bleed is not seen. The ventricles are normal in caliber. An extra-axial fluid collection is not noted. . Fluid within the sinuses/mastoids is not seen. A cervical fracture is not seen. No dislocation is noted. Postsurgical changes The evaluation of mediastinum, na, vessels, solid organs and bowel are limited secondary to the lac k of contrast administration. A mediastinal hematoma is not noted. A pleural effusion is not seen. A lung contusion is not present. The liver,spleen, pancreas, adrenals,kidneys and bladder do not demonstrate a traumatic injury Splenic and renal cysts IMPRESSION: No acute intracranial abnormality is seen. A cervical fracture is not visualized. If the patient continues have symptoms to suggest intracrania l/spinal cord pathology MRI be recommended No traumatic abnormality involving the chest/abdomen/pelvis.
--- NOTE | 2021-12-30 16:20 | RAD REPORT ---
EXAM DESCRIPTION: Ino Single View12/30/2021 3:43 pm CLINICAL HISTORY: cough COMPARISON: October 2021 FINDINGS: The lungs appear clear of acute infiltrate. The heart is mildly enlarged IMPRESSION: No acute abnormalities displayed
[2021-12-30] MEDS ORDERED: NA CHLORIDE 0.9% 500 ML ONE (16:31)
[2021-12-30] MEDS ORDERED: NA CHLORIDE 0.9% 1,000 ML ONE (16:31)
[2021-12-30] MEDS ORDERED: CEFTRIAXONE 1000 MG/VIAL ONE (16:31)
[2021-12-30 16:35] LABS: SARS-CoV-2 Antigen Rapid Res Negative (Negative)
[2021-12-30 16:42] LABS: Protime INR 1.42
[2021-12-30 16:44] LABS: Absolute Lymphocytes (CBC) 0.9 K/uL (0.7-4.9); Hematocrit 43.3 % (36.0-45.0); Lymphocytes % 7.7 % (15.3-44.8); MCV 96.2 fL (80-100); MPV 8.5 fL (7.6-11.3)
[2021-12-30 16:54] LABS: ALT/SGPT 15 U/L (12-78); AST/SGOT 7 U/L (15-37); Albumin 2.6 g/dL (3.4-5.0); Alkaline Phosphatase 100 U/L (45-117); BUN Blood Urea Nitrogen 14 mg/dL (7-18); Bicarbonate 26 mmol/L (21-32); Bilirubin Total 0.3 mg/dL (0.2-1.0); Creatine Phosphokinase 21 U/L (26-192); Glomerular Filtration Rate 42 ml/min (=/>90); Glucose Level 199 mg/dL (74-106); Lipase 40 U/L (73-393); Magnesium 1.9 mg/dL (1.8-2.4); NT PRO-BNP 449 pg/mL (<450); Potassium 4.1 mmol/L (3.5-5.1); Protein, Total 6.4 g/dL (6.4-8.2); Sodium Level 135 mmol/L (136-145); Thyroid Stimulating Hormone 0.698 uIU/mL (0.360-3.740)
[2021-12-30 16:56] LABS: Bilirubin Direct < 0.1 mg/dL (0-0.2)
[2021-12-30 17:05] LABS: Urine Blood Trace-intact (Negative); Urine Glucose Negative (Negative); Urine Protein Negative (Negative); Urine Specific Gravity 1.025 (1.005-1.030); Urine pH 5.5 (5.0-7.0)
--- NOTE | 2021-12-30 17:17 | ER ---
Nurse's Notes [facility] Name: Agnes Calabrese Age: 81 yrs Sex: Female : 1940 Arrival Date: 12/30/2021 Time: 14:15 Bed 4 Private MD: Diagnosis: Morbid (severe) obesity due to excess calories;Weakness;Repeated falls;Abnormal finding of blood chemistry, unspecified-ELEVATED LACTATE Presentation: 12/30 14:00 Chief complaint: EMS states: Patient has had multiple falls over the last week that we jg9 have gone out to assist her on by helping her off the floor, today was the 4th time and today patient c/o generalized weakness. Coronavirus screen: Vaccine status: Patient reports receiving the 2nd dose of the covid vaccine. Ebola Screen: Patient negative for fever greater than or equal to 101.5 degrees Fahrenheit, and additional compatible Ebola Virus Disease symptoms Patient denies exposure to infectious person. Patient denies travel to an Ebola-affected area in the 21 days before illness onset. Initial Sepsis Screen: Does the patient meet any 2 criteria? No. Patient's initial sepsis screen is negative. Does the patient have a suspected source of infection? No. Patient's initial sepsis screen is negative. Risk Assessment: Do you want to hurt yourself or someone else? Patient reports no desire to harm self or others. Onset of symptoms is unknown. 14:00 Method Of Arrival: EMS: [facility] jg9 14:00 Acuity: WARREN 3 jg9 Triage Assessment: 14:00 General: Appears in no apparent distress. Behavior is calm, cooperative. Pain: jg9 Complains of pain in left lateral ankle Pain currently is 2 out of 10 on a pain scale. EENT: No deficits noted. Neuro: Reports weakness generalized. Cardiovascular: No deficits noted. Respiratory: No deficits noted. GI: No deficits noted. : No deficits noted. Derm: Bruising that is on forehead, right ear and right samaritan. Musculoskeletal: Reports weakness in right arm, left arm, right leg and left leg. Historical: - Allergies: 14:18 clindamycin HCl (bulk); jg9 14:18 Darvocet-N 100; jg9 14:18 PENICILLINS; jg9 14:18 Strawberries; jg9 14:18 Sulfa (Sulfonamide Antibiotics); g9 - Home Meds: 14:18 alprazolam 0.25 mg Oral tab 1 tab twice a day for Anxiety [Active]; benzonatate 200 mg jg9 Oral cap 1 cap 3 times per day [Active]; bupropion HCl 150 mg Oral Tb24 1 tab once daily [Active]; bupropion HCl 300 mg Oral Tb24 1 tab once daily [Active]; clopidogrel 75 mg Oral tab 1 tab once daily [Active]; donepezil 10 mg Oral tab 1 tab once daily [Active]; doxepin 50 mg Oral cap 1 cap once daily [Active]; duloxetine 60 mg Oral cpDR 2 caps once daily [Active]; Eliquis 5 mg Oral tab 2 times per day [Active]; Ellura 200 mg Oral cap daily [Active]; gabapentin 300 mg Oral cap 1 cap 3 times per day [Active]; hydrocodone-acetaminophen 7.5-325 mg Oral tab 1 tab every 8 hours [Active]; indapamide 2.5 mg Oral tab 1 tab once daily [Active]; levothyroxine 75 mcg tab 1 tab once daily [Active]; magnesium oxide 500 mg Oral tab 500 mg after meals and before bedtime [Active]; memantine 10 mg Oral tab 1 tab 2 times per day [Active]; metoprolol succinate 25 mg Oral Tb24 1 tab once daily [Active]; pantoprazole 40 mg Oral grps 1 packet once daily [Active]; potassium chloride 20 mEq Oral TbER 1 tab 2 times per day [Active]; quetiapine 200 mg Oral Tb24 1 tab once daily [Active]; simvastatin 40 mg Oral tab 1 tab once daily [Active]; tizanidine 4 mg Oral tab 1 tab daily [Active]; topiramate 200 mg Oral cp24 1 cap twice a day [Active]; Trelegy Ellipta 100-62.5-25 mcg inhalation dsdv 1 puff once daily [Active]; - PMHx: 14:18 AFIB; Alzheimer's disease; Cancer; COPD; Depression; Fibromyalgia; GERD; jg9 Hyperlipidemia; Hypertension; Hypothyroidism; insomnia; left breast cancer; lymphedema; skipped heart beats; - PSHx: 14:18 Total abdominal hysterectomy; jg9 - Immunization history:: Adult Immunizations up to date. - Social history:: Smoking status: Patient denies any tobacco usage or history of. Screenin:21 Abuse screen: Denies threats or abuse. Denies injuries from another. Nutritional jg9 screening: No deficits noted. Fall Risk Fall in past 12 months (25 points). 14:23 Tuberculosis screening: No symptoms or risk factors identified. jg9 Assessment: 15:00 Reassessment: No changes from previously documented assessment. Patient and/or family jg9 updated on plan of care and expected duration. Pain level reassessed. Patient is alert, oriented x 3, equal unlabored respirations, skin warm/dry/pink. 16:00 Reassessment: No changes from previously documented assessment. Patient and/or family jg9 updated on plan of care and expected duration. Pain level reassessed. Patient is alert, oriented x 3, equal unlabored respirations, skin warm/dry/pink. 17:00 Reassessment: No changes from previously documented assessment. Patient and/or family jg9 updated on plan of care and expected duration. Pain level reassessed. Patient is alert, oriented x 3, equal unlabored respirations, skin warm/dry/pink. 18:00 Reassessment: No changes from previously documented assessment. Patient and/or family jg9 updated on plan of care and expected duration. Pain level reassessed. Patient is alert, oriented x 3, equal unlabored respirations, skin warm/dry/pink. 19:00 Reassessment: Patient appears in no apparent distress at this time. Patient and/or jb4 family updated on plan of care and expected duration. Pain level reassessed. Patient is alert, oriented x 3, equal unlabored respirations, skin warm/dry/pink. 20:54 Reassessment: Patient appears in no apparent distress at this time. Patient and/or jb4 family updated on plan of care and expected duration. Pain level reassessed. Patient is alert, oriented x 3, equal unlabored respirations, skin warm/dry/pink. Vital Signs: 14:00 BP 126 / 62; Pulse 65; Resp 20 S; Pulse Ox 100% on R/A; jg9 15:00 BP 108 / 55; Pulse 65; Resp 18 S; Temp 98.3(O); Pulse Ox 99% on 2 lpm NC; Weight 108.5 jg9 kg (R); Height 5 ft. 2 in. (157.48 cm) (R); 16:00 BP 131 / 59; Pulse 58; Resp 21 S; Pulse Ox 97% on 2 lpm NC; jg9 17:00 BP 107 / 56; Pulse 60; Resp 22 S; Pulse Ox 96% on 2 lpm NC; jg9 18:00 BP 115 / 80 LL; Pulse 55; Resp 17 S; Pulse Ox 98% on 2 lpm NC; jg9 19:30 BP 107 / 55; Pulse 57; Resp 16; Pulse Ox 97% on R/A; jb4 20:30 BP 103 / 53; Pulse 54; Resp 16; Pulse Ox 95% on R/A; jb4 15:00 Body Mass Index 43.75 (108.50 kg, 157.48 cm) jg9 ED Course: 14:15 Patient arrived in ED. jg9 14:15 Fawn Meadows, RN is Primary Nurse. jg9 14:18 Triage completed. jg9 14:23 Arm band placed on right wrist. jg9 14:23 Patient has correct armband on for positive identification. Bed in low position. Call jg9 light in reach. Side rails up X 1. 14:48 Rodriguez Berry MD is Attending Physician. mady 15:33 Head C Spine Cap Wo Con In Process Unspecified. EDMS 15:45 XRAY Chest (1 view) In Process Unspecified. EDMS 16:00 Inserted saline lock: 22 gauge in right wrist, using aseptic technique. Blood collected.jg9 17:15 Inserted left jugular site performed by Jeremiah Berry 18g. jg9 17:16 Андрей Goetz MD is Hospitalizing Provider. mady 21:28 No provider procedures requiring assistance completed. Patient admitted, IV remains in jb4 place. Administered Medications: 16:30 Drug: NS 0.9% 500 ml Route: IV; Rate: bolus; Site: right wrist; jg9 17:33 Follow up: IV Status: Completed infusion; IV Intake: 500ml jg9 16:30 Drug: Rocephin (cefTRIAXone) 1 grams Route: IV; Rate: per protocol; Site: right wrist; jg9 17:00 Follow up: IV Status: Completed infusion; IV Intake: 10ml jg9 17:32 Not Given (Other Intervention Used): NS 0.9% 1000 ml IV at 125 ml/hr continuous jg9 17:32 Drug: NS 0.9% 1000 ml Route: IV; Rate: 1 bolus; Site: left jugular; jg9 19:03 Follow up: IV Status: Completed infusion; IV Intake: 1000ml jg9 19:09 Drug: Tylenol 500 mg Route: PO; jg9 Intake: 17:00 IV: 10ml; Total: 10ml. jg9 17:33 IV: 500ml; Total: 510ml. jg9 19:03 IV: 1000ml; Total: 1510ml. jg9 Outcome: 17:17 Decision to Hospitalize by Provider. mady 21:28 Admitted to Tele accompanied by tech, via stretcher, room 431, with chart. jb4 21:28 Condition: stable 21:28 Discharge instructions given to patient, Instructed on the need for admit, Demonstrated understanding of instructions. 21:29 Patient left the ED. jb4 Signatures: Dispatcher [employer] EDMS Rodriguez Berry MD MD cha Bryson, James, RN RN jb4 Fawn Meadows, DANIEL RN jg9 Corrections: (The following items were deleted from the chart) 18:16 15:00 BP 108 / 55; Pulse 65bpm; Resp 18bpm; Spontaneous; Pulse Ox 99% 2 lpm Nasal jg9 Cannula; jg9
--- NOTE | 2021-12-30 17:17 | EDPHYS ---
Physician Documentation [facility] Name: Agnes Calabrese Age: 81 yrs Sex: Female : 1940 Arrival Date: 12/30/2021 Time: 14:15 Bed 4 Private MD: ED Physician Rodriguez Berry HPI: 12/30 17:07 This 81 yrs old Female presents to ER via EMS with complaints of General mady Weakness. 17:07 WEAKNESS, MULTIPLE FALLS. Onset: The symptoms/episode began/occurred 5 day(s) ago. mady Severity of symptoms: At their worst the symptoms were mild moderate in the emergency department the symptoms are unchanged. The patient has experienced similar episodes in the past, several times. Historical: - Allergies: 14:18 clindamycin HCl (bulk); jg9 14:18 Darvocet-N 100; jg9 14:18 PENICILLINS; jg9 14:18 Strawberries; jg9 14:18 Sulfa (Sulfonamide Antibiotics); jg9 - Home Meds: 14:18 alprazolam 0.25 mg Oral tab 1 tab twice a day for Anxiety [Active]; benzonatate 200 mg jg9 Oral cap 1 cap 3 times per day [Active]; bupropion HCl 150 mg Oral Tb24 1 tab once daily [Active]; bupropion HCl 300 mg Oral Tb24 1 tab once daily [Active]; clopidogrel 75 mg Oral tab 1 tab once daily [Active]; donepezil 10 mg Oral tab 1 tab once daily [Active]; doxepin 50 mg Oral cap 1 cap once daily [Active]; duloxetine 60 mg Oral cpDR 2 caps once daily [Active]; Eliquis 5 mg Oral tab 2 times per day [Active]; Ellura 200 mg Oral cap daily [Active]; gabapentin 300 mg Oral cap 1 cap 3 times per day [Active]; hydrocodone-acetaminophen 7.5-325 mg Oral tab 1 tab every 8 hours [Active]; indapamide 2.5 mg Oral tab 1 tab once daily [Active]; levothyroxine 75 mcg tab 1 tab once daily [Active]; magnesium oxide 500 mg Oral tab 500 mg after meals and before bedtime [Active]; memantine 10 mg Oral tab 1 tab 2 times per day [Active]; metoprolol succinate 25 mg Oral Tb24 1 tab once daily [Active]; pantoprazole 40 mg Oral grps 1 packet once daily [Active]; potassium chloride 20 mEq Oral TbER 1 tab 2 times per day [Active]; quetiapine 200 mg Oral Tb24 1 tab once daily [Active]; simvastatin 40 mg Oral tab 1 tab once daily [Active]; tizanidine 4 mg Oral tab 1 tab daily [Active]; topiramate 200 mg Oral cp24 1 cap twice a day [Active]; Trelegy Ellipta 100-62.5-25 mcg inhalation dsdv 1 puff once daily [Active]; - PMHx: 14:18 AFIB; Alzheimer's disease; Cancer; COPD; Depression; Fibromyalgia; GERD; jg9 Hyperlipidemia; Hypertension; Hypothyroidism; insomnia; left breast cancer; lymphedema; skipped heart beats; - PSHx: 14:18 Total abdominal hysterectomy; jg9 - Immunization history:: Adult Immunizations up to date. - Social history:: Smoking status: Patient denies any tobacco usage or history of. ROS: 17:08 Constitutional: Negative for fever, chills, and weight loss, Eyes: Negative for injury, mady pain, redness, and discharge, ENT: Negative for injury, pain, and discharge, Neck: Negative for injury, pain, and swelling, Cardiovascular: Negative for chest pain, palpitations, and edema, Respiratory: Negative for shortness of breath, cough, wheezing, and pleuritic chest pain, Back: Negative for injury and pain, : Negative for injury, bleeding, discharge, and swelling, Skin: Negative for injury, rash, and discoloration, Psych: Negative for depression, anxiety, suicide ideation, homicidal ideation, and hallucinations, Allergy/Immunology: Negative for hives, rash, and allergies, Endocrine: Negative for neck swelling, polydipsia, polyuria, polyphagia, and marked weight changes, Hematologic/Lymphatic: Negative for swollen nodes, abnormal bleeding, and unusual bruising. 17:08 Abdomen/GI: Positive for nausea. 17:08 Neuro: Positive for dizziness, weakness. Exam: 17:08 Constitutional: This is a well developed, well nourished patient who is awake, alert, mady and in no acute distress. Head/Face: Normocephalic, atraumatic. Eyes: Pupils equal round and reactive to light, extra-ocular motions intact. Lids and lashes normal. Conjunctiva and sclera are non-icteric and not injected. Cornea within normal limits. Periorbital areas with no swelling, redness, or edema. ENT: Nares patent. No nasal discharge, no septal abnormalities noted. Tympanic membranes are normal and external auditory canals are clear. Oropharynx with no redness, swelling, or masses, exudates, or evidence of obstruction, uvula midline. Mucous membranes moist. Neck: Trachea midline, no thyromegaly or masses palpated, and no cervical lymphadenopathy. Supple, full range of motion without nuchal rigidity, or vertebral point tenderness. No Meningismus. Chest/axilla: Normal chest wall appearance and motion. Nontender with no deformity. No lesions are appreciated. Cardiovascular: Regular rate and rhythm with a normal S1 and S2. No gallops, murmurs, or rubs. Normal PMI, no JVD. No pulse deficits. Respiratory: Lungs have equal breath sounds bilaterally, clear to auscultation and percussion. No rales, rhonchi or wheezes noted. No increased work of breathing, no retractions or nasal flaring. Abdomen/GI: Soft, non-tender, with normal bowel sounds. No distension or tympany. No guarding or rebound. No evidence of tenderness throughout. Back: No spinal tenderness. No costovertebral tenderness. Full range of motion. Female : Normal external genitalia. Skin: Warm, dry with normal turgor. Normal color with no rashes, no lesions, and no evidence of cellulitis. MS/ Extremity: Pulses equal, no cyanosis. Neurovascular intact. Full, normal range of motion. Psych: Awake, alert, with orientation to person, place and time. Behavior, mood, and affect are within normal limits. 17:08 Neuro: Orientation: is normal, appropriate for stated age, no acute changes, Mentation: is normal, appropriate for stated age, no acute changes, Memory: is normal, appropriate for stated age, no acute changes, Cranial nerves: grossly normal, is grossly normal based on the patient's age, no acute changes, Cerebellar function: is grossly normal, is grossly normal based on the patient's age, no acute changes, Motor: is normal, Gait: not tested. seizure activity, is not displayed by the patient. 17:13 ECG was reviewed by the Attending Physician. mady Vital Signs: 14:00 BP 126 / 62; Pulse 65; Resp 20 S; Pulse Ox 100% on R/A; jg9 15:00 BP 108 / 55; Pulse 65; Resp 18 S; Temp 98.3(O); Pulse Ox 99% on 2 lpm NC; Weight 108.5 jg9 kg (R); Height 5 ft. 2 in. (157.48 cm) (R); 16:00 BP 131 / 59; Pulse 58; Resp 21 S; Pulse Ox 97% on 2 lpm NC; jg9 17:00 BP 107 / 56; Pulse 60; Resp 22 S; Pulse Ox 96% on 2 lpm NC; jg9 18:00 BP 115 / 80 LL; Pulse 55; Resp 17 S; Pulse Ox 98% on 2 lpm NC; jg9 19:30 BP 107 / 55; Pulse 57; Resp 16; Pulse Ox 97% on R/A; jb4 20:30 BP 103 / 53; Pulse 54; Resp 16; Pulse Ox 95% on R/A; jb4 15:00 Body Mass Index 43.75 (108.50 kg, 157.48 cm) jg9 Procedures: 17:19 Peripheral line: by aseptic technique a peripheral line was placed in the left external [facility] jugular vein. MDM: 14:48 Patient medically screened. [facility] 17:12 Differential Diagnosis sepsis. Data reviewed: vital signs, nurses notes, lab test [facility] result(s), EKG, radiologic studies, CT scan, plain films. Data interpreted: shelter monitor: rate is 58 beats/min, rhythm is regular, Pulse oximetry: on room air is 97 %. Test interpretation: by ED physician or midlevel provider: ECG, plain radiologic studies. Counseling: I had a detailed discussion with the patient and/or guardian regarding: the historical points, exam findings, and any diagnostic results supporting the discharge/admit diagnosis, lab results, radiology results, the need for further work-up and treatment in the hospital. 12/30 14:52 Order name: Basic Metabolic Panel; Complete Time: 16:59 [facility] 12/30 14:52 Order name: CBC with Diff; Complete Time: 16:59 [facility] 12/30 14:52 Order name: LFT's; Complete Time: 16:59 [facility] 12/30 14:52 Order name: Magnesium; Complete Time: 16:59 [facility] 12/30 14:52 Order name: NT PRO-BNP; Complete Time: 16:59 [facility] 12/30 14:52 Order name: PT-INR; Complete Time: 16:45 [facility] 12/30 14:52 Order name: Troponin HS; Complete Time: 16:59 [facility] 12/30 14:52 Order name: Lipase; Complete Time: 16:59 [facility] 12/30 14:52 Order name: Blood Culture Adult (2) [facility] 12/30 14:52 Order name: Urine Culture [facility] 12/30 14:52 Order name: SARS RAPID; Complete Time: 16:45 [facility] 12/30 14:52 Order name: TSH; Complete Time: 16:59 [facility] 12/30 14:52 Order name: Lactate; Complete Time: 16:59 [facility] 12/30 14:54 Order name: CK; Complete Time: 16:59 [facility] 12/30 14:52 Order name: XRAY Chest (1 view); Complete Time: 16:45 [facility] 12/30 14:52 Order name: EKG; Complete Time: 14:53 [facility] 12/30 14:52 Order name: Cardiac monitoring; Complete Time: 15:24 [facility] 12/30 14:52 Order name: EKG - Nurse/Tech; Complete Time: 15:24 [facility] 12/30 14:52 Order name: IV Saline Lock; Complete Time: 16:19 [facility] 12/30 14:54 Order name: CT Traumagram (Head C Spine CAP wo con) [facility] 12/30 14:54 Order name: Ckmb; Complete Time: 16:59 [facility] 12/30 14:58 Order name: Head C Spine Cap Wo Con; Complete Time: 16:45 [facility] 12/30 17:05 Order name: Urine Dipstick-Ancillary; Complete Time: 17:14 [facility] 12/30 20:10 Order name: Lactate Sepsis 2 HR Follow-up [facility] 12/30 14:52 Order name: Labs collected and sent; Complete Time: 16:19 [facility] 12/30 14:52 Order name: O2 Per Protocol; Complete Time: 16:19 [facility] 12/30 14:52 Order name: O2 Sat Monitoring; Complete Time: 15:24 [facility] 12/30 14:52 Order name: Urine Dipstick-Ancillary (obtain specimen); Complete Time: 17:05 [facility] EC:13 Rate is 60 beats/min. Rhythm is regular. QRS [place] is Normal. [place] interval is normal. QRS mady interval is normal. QT interval is normal. No Q waves. T waves are Normal. No ST changes noted. Clinical impression: NSR w/ Non-specific ST/T Changes and No evidence of ischemia. Interpreted by me. Reviewed by me. Administered Medications: 16:30 Drug: NS 0.9% 500 ml Route: IV; Rate: bolus; Site: right wrist; jg9 17:33 Follow up: IV Status: Completed infusion; IV Intake: 500ml jg9 16:30 Drug: Rocephin (cefTRIAXone) 1 grams Route: IV; Rate: per protocol; Site: right wrist; jg9 17:00 Follow up: IV Status: Completed infusion; IV Intake: 10ml jg9 17:32 Not Given (Other Intervention Used): NS 0.9% 1000 ml IV at 125 ml/hr continuous jg9 17:32 Drug: NS 0.9% 1000 ml Route: IV; Rate: 1 bolus; Site: left jugular; jg9 19:03 Follow up: IV Status: Completed infusion; IV Intake: 1000ml jg9 19:09 Drug: Tylenol 500 mg Route: PO; jg9 Disposition Summary: 12/30/21 17:17 Hospitalization Ordered Hospitalization Status: Inpatient Admission mady Provider: Андрей Goetz cha [facility] mady Condition: Fair mady Problem: new mady Symptoms: have improved mady Bed/Room Type: Standard mady Room Assignment: 431(12/30/21 20:15) bb Diagnosis - Morbid (severe) obesity due to excess calories mady - Weakness mady - Repeated falls mady - Abnormal finding of blood chemistry, unspecified - ELEVATED LACTATE mady Forms: - Medication Reconciliation Form mady - SBAR form mady Signatures: Dispatcher [employer] EDMS Rodriguez Berry MD MD cha Ballard, Brenda, RN RN Fawn Roque RN RN jg9 Corrections: (The following items were deleted from the chart) 19:32 17:57 Lactate ordered. [facility] 20:15 17:17 mady bb
[2021-12-30] MEDS ORDERED: ACETAMINOPHEN 500 MG TAB ONE (19:11)
--- NOTE | 2021-12-30 19:50 | P.HP ---
Certification for Inpatient Patient admitted to: Observation With expected LOS: <2 Midnights Patient will require the following post-hospital care: None Practitioner: I am a practitioner with admitting privileges, knowledge of patient current condition, hospital course, and medical plan of care. Services: Services provided to patient in accordance with Admission requirements found in Title 42 Section 412.3 of the Code of Federal Regulations <Andrew Bailey - Last Filed: 12/30/21 19:56> Patient History Date of Service: 12/30/21 Reason for admission: Weakness, multiple falls History of Present Illness: 81-year-old female with history of atrial fibrillation on chronic anticoagulation therapy, COPD with home oxygen, hypertension, hypothyroidism, hyperlipidemia, GERD who [facility] presents the emergency department for weakness, multiple falls. She reports in the past 3 days she has had 2 falls today she was ambulating back from her restroom when she feels like her legs "gave out on her" which caused her to fall, she was unable to get up without assistance. She reports feeling generally weak in all of her extremities the past few days as well. She was evaluated in the emergency department her labs were significant for mild leukocytosis, mild lactic acidosis initial lactate 2.1 SIRS criteria were present including leukocytosis, tachypnea during her stay in the emergency department but no source of infection was identified she had a chest x-ray which demonstrated no acute abnormalities, CT of the head/chest/C-spine/abdomen and pelvis without contrast showed no acute abnormalities. ED wishes to admit patient under observation for weakness, multiple falls. - Past Medical/Surgical History Diabetic: No -: Lymphedema -: Afib -: L breast cancer -: PE -: Meniere's Disease -: Former smoker -: Recurrent UTIs -: Fibromyalgia -: GERD -: Insomnia -: Depression -: Neuropathy -: s/p Left Mastectomy -: PATIENCE TKA -: Cervical fusion -: Lumbar fusion -: Appendectomy -: Hysterectomy Psychosocial/ Personal History: Patient lives in an assisted living facility- [facility] - Family History Father -: Diabetes Notes: heart attack. alcoholic - Social History Smoking Status: Never smoker Alcohol use: No CD- Drugs: No Caffeine use: No Place of Residence: Home <Andrew Bailey - Last Filed: 12/30/21 19:56> Date of Service: 12/31/21 <Андрей Goetz - Last Filed: 12/31/21 19:11> Allergies clindamycin HCl [From Cleocin] Allergy (Severe, Verified 06/10/21 22:02) Hives/Rash clindamycin palmitate HCl [From Cleocin] Allergy (Severe, Verified 06/10/21 22:02) Hives/Rash clindamycin phosphate [From Cleocin] Allergy (Severe, Verified 06/10/21 22:02) Hives/Rash Penicillins Allergy (Severe, Verified 06/10/21 22:02) Hives/Rash Sulfa (Sulfonamide Antibiotics) [Sulfa(Sulfonamide Antibiotics)] Allergy (Severe, Verified 06/10/21 22:02) Hives/Rash propoxyphene [From Darvocet-N 100] Allergy (Verified 06/10/21 22:02) Unknown strawberries Allergy (Severe, Uncoded 07/11/20 05:19) Hives/Rash Home Medications: Estradiol 0.01% Cream 1 appl VAG SEECOM 06/11/21 RX: Albuterol Sulfate [Proair Respiclick] 2 puff IH Q6HP PRN 06/11/21 RX: Apixaban [Eliquis] 5 mg PO BID 06/11/21 RX: Cranberry Fruit Extract [Ellura] 200 mg PO DAILY 06/11/21 RX: Cyanocobalamin (Vitamin B-12) [Vitamin B12] 1,000 mcg PO DAILY 06/11/21 RX: Cyclosporine [Restasis] 1 drop EACH EYE TID 06/11/21 RX: Donepezil HCl 10 mg PO DAILY 06/11/21 RX: Doxepin HCl 100 mg PO BEDTIME 06/11/21 RX: Duloxetine HCl 60 mg PO BID 06/11/21 RX: Flecainide Acetate 50 mg PO BID 06/11/21 RX: Fluticasone/Umeclidin/Vilanter [Trelegy Ellipta 100-62.5-25] 1 puff IH DAILY 06/11/21 RX: Furosemide 20 mg PO DAILY 06/11/21 RX: Gabapentin 300 mg PO BEDTIME 06/11/21 RX: Levothyroxine [Synthroid*] 75 mcg PO [id number] 06/11/21 RX: Memantine HCl 10 mg PO BID 06/11/21 RX: Metoprolol Succinate 25 mg PO BEDTIME 06/11/21 RX: Montelukast [Singulair*] 10 mg PO DAILY 06/11/21 RX: Pantoprazole [Protonix Tab*] 40 mg PO DAILY 06/11/21 RX: Potassium Chloride 20 meq PO BID 06/11/21 RX: Quetiapine Fumarate [Seroquel] 25 mg PO BEDTIME 06/11/21 RX: Simvastatin 40 mg PO BEDTIME 06/11/21 RX: Tizanidine HCl 4 mg PO DAILY 06/11/21 RX: Topiramate 100 mg PO BID 06/11/21 RX: buPROPion HCL [Bupropion Xl] 300 mg PO DAILY 06/11/21 Pataday 0.7% Drops 1 drop OPTH DAILY 12/31/21 Propylene Glycol/Peg 400 [Lubricating Eye Drop] 1 drop OPTH BID 12/31/21 RX: Acetaminophen 650 mg PO Q6H PRN 12/31/21 RX: Benzonatate [Tessalon Perle*] 200 mg PO Q8H PRN 12/31/21 Review of Systems 10-point ROS is otherwise unremarkable General: Weakness, Malaise <Andrew Bailey Main - Last Filed: 12/30/21 19:56> Physical Examination - Physical Exam General: Alert, In no apparent distress, Oriented x3 HEENT: Atraumatic, PERRLA, Mucous membr. moist/pink, EOMI, Sclerae nonicteric Neck: Supple, 2+ carotid pulse no bruit, No LAD, Without JVD or thyroid abnormality Respiratory: Clear to auscultation bilaterally, Normal air movement Cardiovascular: Regular rate/rhythm, Normal S1 S2 Capillary refill: <2 Seconds Gastrointestinal: Normal bowel sounds, No tenderness Musculoskeletal: No tenderness Integumentary: No rashes, No significant lesion Neurological: Normal gait, Normal speech, Normal tone, Sensation intact, Normal affect, Abnormal strength (4/5 Strength all extremities) - Studies Laboratory Data (last 24 hrs) 12/30/21 16:15: PT 15.7 H, INR 1.42 12/30/21 16:15: WBC 12.10 H, Hgb 14.0, Hct 43.3, Plt Count 225 12/30/21 16:15: Sodium 135 L, Potassium 4.1, BUN 14, Creatinine 1.28, Glucose 199 H, Magnesium 1.9, Total Bilirubin 0.3, AST 7 L, ALT 15, Alkaline Phosphatase 100, Lipase 40 L <Andrew Bailey - Last Filed: 12/30/21 19:56> Assessment and Plan - Plan Assessment: Deconditioning/weakness with multiple falls SIRS criteria Atrial fibrillation on chronic anticoagulation therapy COPD with home oxygen as needed Hypertension Hypothyroidism GERD Plan: Deconditioning/weakness with multiple falls: CT head/chest abdomen pelvis negative for acute findings, patient denies syncope, chest pain, palpitations, headache prior to falls reports feeling as if her legs are "giving out on her". Patient had PT at home was recently discharged from PT services she uses a walker currently at her assisted living facility. We will have her evaluated by physical therapy as well as obtaining orthostatic vital signs. Patient may require PT at discharge versus rehab. Await further recommendations from PT. SIRS criteria: Tachypnea and leukocytosis present as well as mildly elevated lactate. No source of infection identified. Will repeat lactate. Atrial fibrillation on chronic anticoagulation therapy: Continue home medications, monitor on telemetry, electrolyte protocol in place. COPD with home oxygen as needed: Currently saturating 99% on room air no signs of exacerbation currently chest x-ray unremarkable. We will continue patient's on medications and provide with as needed nebulizer treatments. Hypertension: Continue medications once verified. Hypothyroidism: Continue medications once verified. GERD: Continue medications once verified. DVT PPX: Continue Eliquis Code status: Full code Discharge Plan: Home Plan to discharge in: 24 Hours - Advance Directives Does patient have a Living Will: No Does patient have a Durable POA for Healthcare: Yes - Code Status/Comfort Care Code Status Assessed: Yes (Full code) Critical Care: No Time Spent Managing Pts Care (In Minutes): 55 <Andrew Bailey - Last Filed: 12/30/21 19:56> Physician Review: Patient Assessed, Agree with Above Assessment and Plan <Андрей Goetz - Last Filed: 12/31/21 19:11>
[2021-12-30] MEDS ORDERED: ONDANSETRON 4 MG/2 ML VIAL IV PRN (21:26)
[2021-12-30] MEDS: Ringers Lactate 1,000 ML IV SCH (22:20)
[2021-12-30 23:55] VITALS: BMI 41.3
[2021-12-31 03:48] LABS: Absolute Lymphocytes (CBC) 1.8 K/uL (0.7-4.9); Hematocrit 40.8 % (36.0-45.0); Lymphocytes % 20.1 % (15.3-44.8); MCV 96.7 fL (80-100); MPV 8.3 fL (7.6-11.3); RBC Red Blood Cell Count 4.22 M/uL (3.86-4.86)
[2021-12-31 04:12] LABS: Bilirubin Total 0.5 mg/dL (0.2-1.0); Potassium 3.8 mmol/L (3.5-5.1); Protein, Total 5.7 g/dL (6.4-8.2)
[2021-12-31 04:13] LABS: Albumin 2.2 g/dL (3.4-5.0); Magnesium 1.7 mg/dL (1.8-2.4); Thyroid Stimulating Hormone 0.799 uIU/mL (0.360-3.740)
[2021-12-31] MEDS: APIXABAN 5 MG TABLET PO SCH ×2 (08:16→21:04)
[2021-12-31] MEDS ORDERED: MAGNESIUM SULFATE 1 gm IVPB 1 GM/100 ML BAG IV ONE (09:00)
[2021-12-31] MEDS ORDERED: POTASSIUM CL SA 10 MEQ TAB PO ONE (09:00)
--- NOTE | 2021-12-31 15:39 | EKG ---
Test Date: 2021-12-30 Test Time: 15:12:32 Avionics Manager: KIMO MEASUREMENT RESULTS: Intervals: Rate: 60 [place]: 202 QRSD: 94 QT: 412 QTc: 412 [place]: P: 74 [place]: 202 QRS: 93 T: 91 INTERPRETIVE STATEMENTS: Normal sinus rhythm Rightward axis Nonspecific ST abnormality Abnormal ECG Compared to ECG 06/10/2021 15:16:02 First degree AV block no longer present ST (T wave) deviation still present Electronically Signed On 12-31-21 15:38:38 CDT by Christopher Chirinos
[2021-12-31] MEDS: Ringers Lactate 1,000 ML IV SCH (17:06)
--- NOTE | 2021-12-31 19:18 | P.PN ---
Subjective Date of Service: 12/31/21 Chief Complaint: Weakness, multiple falls Subjective: No new changes No acute events since admission. She reports that she feels well overall, but has been experiencing generalized weakness for some time now. Review of Systems 10-point ROS is otherwise unremarkable General: Weakness (generalized) Physical Examination - Vital Signs Temperature: 97.2 F Blood Pressure: 142/62 Pulse: 62 Respirations: 16 Pulse Ox (%): 95 - Physical Exam General: Alert, In no apparent distress, Oriented x3 HEENT: Atraumatic, PERRLA, Mucous membr. moist/pink, EOMI, Sclerae nonicteric Neck: Supple, JVD not distended Respiratory: Clear to auscultation bilaterally, Normal air movement Cardiovascular: No edema, Regular rate/rhythm, Normal S1 S2, No gallops, No rubs, No murmurs Gastrointestinal: Normal bowel sounds, Soft and benign, Non-distended, No tenderness, No rebound, No guarding Musculoskeletal: No clubbing Integumentary: No rashes Neurological: Normal speech, Cranial nerves 3-12 intact, Normal affect Assessment And Plan - Plan # Significant Deconditioning complicated by Recurrent Falls # SIRS Criteria (Slight Tachypnea, Leukocytosis [suspect reactive]) - no current source of infection # Minimal Lactic Acidosis - possibly secondary to Mild Dehydration (resolved) - Specifically denies syncope or head trauma - Reports requiring PT services in the past - Currently lives in [facility] and utilizes walker - PT consulted - recs appreciated # Chronic Obstructive Pulmonary Disease on Intermittent Home Oxygen - No evidence of exacerbation - Continue home medications # Paroxysmal Atrial Fibrillation - Not on medication for rate-control - Continue home apixaban # Hypertension # Hypothyroidism # Gastroesophageal Reflux Disease - Continue home medications once verified Андрей Goetz M.D.
[2021-12-31] MEDS ORDERED: ACETAMINOPHEN 325 MG TABLET PO PRN (21:09)
[2022-01-01] MEDS: Ringers Lactate 1,000 ML IV SCH ×3 (00:06→20:47)
[2022-01-01 04:13] LABS: Absolute Lymphocytes (CBC) 1.9 K/uL (0.7-4.9); Lymphocytes % 27.8 % (15.3-44.8); MCV 94.3 fL (80-100); MPV 7.8 fL (7.6-11.3); RBC Red Blood Cell Count 4.24 M/uL (3.86-4.86)
[2022-01-01 04:20] LABS: Albumin 2.1 g/dL (3.4-5.0); Bilirubin Total 0.3 mg/dL (0.2-1.0); Potassium 4.1 mmol/L (3.5-5.1); Protein, Total 5.6 g/dL (6.4-8.2)
[2022-01-01] MEDS: APIXABAN 5 MG TABLET PO SCH ×2 (08:15→20:45)
--- NOTE | 2022-01-01 17:26 | RAD REPORT ---
EXAM DESCRIPTION: MRI - C Spine Wo Cont - 01/01/2022 4:46 pm CLINICAL HISTORY: NECK PAIN COMPARISON: Head Brain Wo Cont dated 12/10/2021No comparisons TECHNIQUE: Sagittal T1-weighted, T2-weighted and T2-STIR sequences were obtained as well as axial T2 medic sequence obtained. FINDINGS: Status post C4 through C7 ACDF. Note that the axials are limited due to hardware artifact which simulates the presence of central spinal stenosis. Cerebellar tonsils and mid-line skull base show no suspicious finding. No significant finding at the C1 and C2 levels. C2-3 level: No significant findings. C3-4 level: Uncovertebral joint hypertrophy and posterior disc osteophyte complex results in mild michael ateral neural foraminal narrowing. Moderate central spinal stenosis is present. C4-5 level: Fused level with posterior disc osteophyte complex results in mild central spinal stenosi s. The neural foramen are adequate. C5-6 level: Fused level. No central spinal stenosis identified. The neural foramina are adequate. C6-7 level: Fused level. No central spinal stenosis identified. The neural foramina are adequate. C7-T1 level: No significant findings. IMPRESSION: Limited evaluation at the fused levels due to metallic artifact and limitations of the T 2* GRE technique. Above the fusion, moderate central spinal stenosis is noted at C3-4 . Mild central spinal stenosis is present at C4-5 though this may be accentuated by metallic artifact. No definite f inding to explain a right-sided radiculopathy.
--- NOTE | 2022-01-01 18:40 | RAD REPORT ---
EXAM DESCRIPTION: RAD - Chest Single View - 01/01/2022 6:27 pm CLINICAL HISTORY: shortness of breath.. COMPARISON: Chest Single View dated 12/30/2021; Chest Pa And Lat (2 Views) dated 10/24/2021; Chest Sing le View dated 06/12/2021; Chest Single View dated 06/10/2021 FINDINGS: Lines: None. Lungs: No evidence of edema or pneumonia. Pleural: No significant pleural effusions or pneumothorax. Cardiac: Cardiomegaly Mediastinum: Within normal limits. Bones: No acute fractures. Right shoulder arthroplasty. Other: None IMPRESSION: No acute cardiopulmonary disease.
[2022-01-01] MEDS: FLECAINIDE 100 MG TAB PO SCH (20:45)
[2022-01-01] MEDS: DOXEPIN HCL 25 MG CAP PO SCH (20:45)
[2022-01-01] MEDS: DULOXETINE 30 MG CAP PO SCH (20:45)
[2022-01-01] MEDS: ATORVASTATIN 20 MG TAB PO SCH (20:46)
[2022-01-01] MEDS: MEMANTINE HCL 10 MG TABLET PO SCH (20:46)
[2022-01-01] MEDS: GABAPENTIN 300 MG CAP PO SCH (20:46)
[2022-01-01] MEDS: ACETAMINOPHEN 325 MG TABLET PO PRN (20:46)
[2022-01-01] MEDS: TOPIRAMATE 100 MG TAB PO SCH (20:46)
[2022-01-01] MEDS: QUETIAPINE 25 MG TAB PO SCH (20:47)
[2022-01-01] MEDS: METOPROLOL XL 25 MG TAB PO SCH (20:47)
--- NOTE | 2022-01-01 20:51 | P.PN ---
Subjective Date of Service: 01/01/22 Chief Complaint: Weakness, multiple falls No acute events overnight. She reports working well with PT yesterday. She denies any current pain or discomfort. Review of Systems 10-point ROS is otherwise unremarkable General: Weakness (generalized) Physical Examination - Vital Signs Temperature: 97 F Blood Pressure: 130/60 Pulse: 65 Respirations: 18 Pulse Ox (%): 97 - Studies Microbiology Data (last 24 hrs): 12/30/21 17:00 Clean Catch Urine Coolin Count - Final <10,000 CFU/ML. 12/30/21 17:00 Clean Catch Urine - Final MIXED ROODLFO. Assessment And Plan - Plan - Physical Exam General: Alert, In no apparent distress, Oriented x3 HEENT: Atraumatic, PERRLA, Mucous membr. moist/pink, EOMI, Sclerae nonicteric Neck: Supple, JVD not distended Respiratory: Clear to auscultation bilaterally, Normal air movement Cardiovascular: No edema, Regular rate/rhythm, Normal S1 S2, No gallops, No rubs, No murmurs Gastrointestinal: Normal bowel sounds, Soft and benign, Non-distended, No tenderness, No rebound, No guarding Musculoskeletal: No clubbing Integumentary: No rashes Neurological: Normal speech, Cranial nerves 3-12 intact, Normal affect # Significant Deconditioning complicated by Recurrent Falls # SIRS Criteria (Slight Tachypnea, Leukocytosis [suspect reactive]) - no current source of infection # Minimal Lactic Acidosis - possibly secondary to Mild Dehydration (resolved) - Specifically denies syncope or head trauma - Reports requiring PT services in the past - Currently lives in [facility] and utilizes walker - PT consulted - recs appreciated - CM assisting with placement into acute rehab - Spoke with her neurologist (Dr. Pat), who recommended obtaining an MRI ce rvical spine due to her prior surgery to exclude a neurologic cause of her weakness # Chronic Obstructive Pulmonary Disease on Intermittent Home Oxygen - No evidence of exacerbation - Continue home medications # Paroxysmal Atrial Fibrillation - Not on medication for rate-control - Continue home apixaban # Hypertension # Hypothyroidism # Gastroesophageal Reflux Disease - Continue home medications once verified Андрей Goetz M.D. Physician Review: Patient Assessed, Agree with Above Assessment and Plan
[2022-01-02] MEDS: LEVOTHYROXINE SOD 0.075 MG TAB PO SCH (05:46)
[2022-01-02] MEDS: PANTOPRAZOLE 40MG TABLET PO SCH (09:19)
[2022-01-02] MEDS: DONEPEZIL HCL 5 MG TAB PO SCH (09:19)
[2022-01-02] MEDS: DULOXETINE 30 MG CAP PO SCH ×2 (09:19→20:22)
[2022-01-02] MEDS: MONTELUKAST 10 MG TAB PO SCH (09:19)
[2022-01-02] MEDS: TOPIRAMATE 100 MG TAB PO SCH ×2 (09:19→20:24)
[2022-01-02] MEDS: TIZANIDINE 4 MG TABLET PO SCH (09:20)
[2022-01-02] MEDS: MEMANTINE HCL 10 MG TABLET PO SCH ×2 (09:20→20:24)
[2022-01-02] MEDS: FLECAINIDE 100 MG TAB PO SCH ×2 (09:20→20:23)
[2022-01-02] MEDS: APIXABAN 5 MG TABLET PO SCH ×2 (09:20→20:24)
[2022-01-02] MEDS: FUROSEMIDE 20 MG TABLET PO SCH (09:20)
[2022-01-02] MEDS: BUPROPION HCL XL 150 MG TAB PO SCH (10:11)
[2022-01-02] MEDS: Ringers Lactate 1,000 ML IV SCH (13:32)
[2022-01-02] MEDS: ACETAMINOPHEN 325 MG TABLET PO PRN (14:25)
--- NOTE | 2022-01-02 19:29 | P.PN ---
Subjective Date of Service: 01/02/22 Chief Complaint: Weakness, multiple falls No acute events overnight. She denies any symptoms. Awaiting placement into acute rehab. Review of Systems 10-point ROS is otherwise unremarkable General: Weakness (generalized) Physical Examination - Vital Signs Temperature: 97.0 F Blood Pressure: 120/49 Pulse: 52 Respirations: 18 Pulse Ox (%): 97 Assessment And Plan - Plan - Physical Exam General: Alert, In no apparent distress, Oriented x3 HEENT: Atraumatic, PERRLA, Mucous membr. moist/pink, EOMI, Sclerae nonicteric Neck: Supple, JVD not distended Respiratory: Clear to auscultation bilaterally, Normal air movement Cardiovascular: No edema, Regular rate/rhythm, Normal S1 S2, No gallops, No rubs, No murmurs Gastrointestinal: Normal bowel sounds, Soft and benign, Non-distended, No tenderness, No rebound, No guarding Musculoskeletal: No clubbing Integumentary: No rashes Neurological: Normal speech, Cranial nerves 3-12 intact, Normal affect # Significant Deconditioning complicated by Recurrent Falls # SIRS Criteria (Slight Tachypnea, Leukocytosis [suspect reactive]) - no current source of infection # Minimal Lactic Acidosis - possibly secondary to Mild Dehydration (resolved) - Specifically denies syncope or head trauma - Reports requiring PT services in the past - Currently lives in [facility] and utilizes walker - PT consulted - recs appreciated - CM assisting with placement into acute rehab - Spoke with her neurologist (Dr. Pat), who recommended obtaining an MRI cervical spine due to her prior surgery to exclude a neurologic cause of her weakness - Results: "Above the fusion, moderate central spinal stenosis is noted at C3-4 . Mild central spinal stenosis is present at C4-5 though this may be accentuated by metallic artifact. No definite finding to explain a right-sided radiculopathy." - No acute intervention required per Dr. Pat # Chronic Obstructive Pulmonary Disease on Intermittent Home Oxygen - No evidence of exacerbation - Continue home medications # Paroxysmal Atrial Fibrillation - Not on medication for rate-control - Continue home apixaban # Hypertension # Hypothyroidism # Gastroesophageal Reflux Disease - Continue home medications once verified Андрей Goetz M.D.
[2022-01-02] MEDS: QUETIAPINE 25 MG TAB PO SCH (20:24)
[2022-01-02] MEDS: GABAPENTIN 300 MG CAP PO SCH (20:24)
[2022-01-02] MEDS: DOXEPIN HCL 25 MG CAP PO SCH (20:25)
[2022-01-02] MEDS: ATORVASTATIN 20 MG TAB PO SCH (20:27)
[2022-01-02] MEDS: METOPROLOL XL 25 MG TAB PO SCH (20:29)
[2022-01-03] MEDS: Ringers Lactate 1,000 ML IV SCH (04:32)
[2022-01-03] MEDS: LEVOTHYROXINE SOD 0.075 MG TAB PO SCH (06:04)
[2022-01-03] MEDS: MONTELUKAST 10 MG TAB PO SCH (10:27)
[2022-01-03] MEDS: FUROSEMIDE 20 MG TABLET PO SCH (10:27)
[2022-01-03] MEDS: TIZANIDINE 4 MG TABLET PO SCH (10:28)
[2022-01-03] MEDS: FLECAINIDE 100 MG TAB PO SCH (10:28)
[2022-01-03] MEDS: TOPIRAMATE 100 MG TAB PO SCH (10:28)
[2022-01-03] MEDS: DONEPEZIL HCL 5 MG TAB PO SCH (10:29)
[2022-01-03] MEDS: MEMANTINE HCL 10 MG TABLET PO SCH (10:29)
[2022-01-03] MEDS: DULOXETINE 30 MG CAP PO SCH (10:29)
[2022-01-03] MEDS: APIXABAN 5 MG TABLET PO SCH (10:29)
[2022-01-03] MEDS: PANTOPRAZOLE 40MG TABLET PO SCH (10:33)
[2022-01-03] MEDS: BUPROPION HCL XL 150 MG TAB PO SCH (10:33)
[2022-01-03 11:13] VITALS: O2SAT 94
[2022-01-03 16:06] VITALS: BP 116/55; TEMP 97.4
--- NOTE | 2022-01-03 18:07 | P.DS ---
Admission Date: 12/30/21 Discharge Date: 01/03/22 Disposition: DC HOME/HOME HEALTH CARE Discharge Condition: GOOD Reason for Admission: Weakness, multiple falls Consultations: 1. Neurology 2. Physical Therapy 3. Case Management Hospital Course: DIAGNOSES: # Significant Deconditioning complicated by Recurrent Falls # SIRS Criteria (Slight Tachypnea, Leukocytosis [suspect reactive]) - (now resolved) - no source of infection # Minimal Lactic Acidosis - possibly secondary to Mild Dehydration (resolved) # Chronic Obstructive Pulmonary Disease on Intermittent Home Oxygen # Paroxysmal Atrial Fibrillation # Hypertension # Hypothyroidism # Gastroesophageal Reflux Disease HOSPITAL COURSE: Ms. Agnes Calabrese is a pleasant 81 year old female with a past medical history significant for paroxysmal atrial fibrillation, chronic obstructive pulmonary disease on intermittent home oxygen, hypertension, hypothyroidism, and GERD who was admitted to the [facility] on 12/30/2021 for recurrent falls. She was admitted to the Medicine service. She and her family members reported that she has been experiencing recurrent falls and generalized weakness. Physical Therapy was consulted and it was recommended that she have continued outpatient therapy services. Neurology was consulted and I spoke to her neurologist, Dr. Pat, he recommended obtaining an MRI cervical spine due to her prior surgery. This MRI was obtained, which revealed, "above the fusion, moderate central spinal stenosis is noted at C3-4. Mild central spinal stenosis is present at C4-5 though this may be accentuated by metallic artifact. No definite finding to explain a right-sided radiculopathy." Imaging reports were reviewed with Dr. Pat, who felt that these changes were chronic and unlikely to have contributed to her symptoms. With the assistance of case management, we attempted to get her accepted to acute rehab, but were unsuccessful. Earlier today, her and her family elected to have her discharged back home with Home Health. With the assistance of case management, this was arranged. On 01/03/2022, she was seen on rounds and deemed medically stable for discharge. She was discharged with instructions to schedule follow-up appointments with her PCP (Dr. Torres) in 3-5 days and her Neurologist (Dr. Pat) in 5-7 days. She and her family members were given the opportunity to ask questions and reported no further questions. Furthermore, all questions were answered to the best of my ability. Today, I personally spent 25 minutes on her case, of which greater than 50% of the time was spent in patient education, counseling, and coordination of care as described above. - Physical Exam General: Alert, In no apparent distress, Oriented x3 HEENT: Atraumatic, PERRLA, Mucous membr. moist/pink, EOMI, Sclerae nonicteric Neck: Supple, JVD not distended Respiratory: Clear to auscultation bilaterally, Normal air movement Cardiovascular: No edema, Regular rate/rhythm, Normal S1 S2, No gallops, No rubs, No murmurs Gastrointestinal: Normal bowel sounds, Soft and benign, Non-distended, No tenderness, No rebound, No guarding Musculoskeletal: No clubbing Integumentary: No rashes Neurological: Normal speech, Cranial nerves 3-12 intact, Normal affect Vital Signs/Physical Exam: Temp Pulse Resp BP Pulse Ox 97.4 F 53 23 H 116/55 L 96 01/03/22 16:00 01/03/22 16:00 01/03/22 16:00 01/03/22 16:00 01/03/22 16:00 Laboratory Data at Discharge: WBC 6.70 K/uL (4.3-10.9) D 01/01/22 03:53 Hgb 13.3 g/dL (12.0-15.0) 01/01/22 03:53 Hct 40.0 % (36.0-45.0) 01/01/22 03:53 Plt Count 182 K/uL (152-406) 01/01/22 03:53 PT 15.7 SECONDS (9.5-12.5) H 12/30/21 16:15 INR 1.42 12/30/21 16:15 Sodium 141 mmol/L (136-145) 01/01/22 03:53 Potassium 4.1 mmol/L (3.5-5.1) 01/01/22 03:53 BUN 8 mg/dL (7-18) 01/01/22 03:53 Creatinine 0.91 mg/dL (0.55-1.3) 01/01/22 03:53 Glucose 102 mg/dL (74-106) 01/01/22 03:53 Magnesium 2.0 mg/dL (1.8-2.4) 01/01/22 03:53 Total Bilirubin 0.3 mg/dL (0.2-1.0) 01/01/22 03:53 AST 8 U/L (15-37) L 01/01/22 03:53 ALT 11 U/L (12-78) L 01/01/22 03:53 Alkaline Phosphatase 86 U/L (45-117) 01/01/22 03:53 Lipase 40 U/L (73-393) L 12/30/21 16:15 Home Medications: Albuterol Sulfate [Proair Respiclick] 2 puff IH Q6HP PRN 06/11/21 Apixaban [Eliquis] 5 mg PO BID 06/11/21 Cranberry Fruit Extract [Ellura] 200 mg PO DAILY 06/11/21 Cyanocobalamin (Vitamin B-12) [Vitamin B12] 1,000 mcg PO DAILY 06/11/21 Cyclosporine [Restasis] 1 drop EACH EYE TID 06/11/21 Donepezil HCl 10 mg PO DAILY 06/11/21 Doxepin HCl 100 mg PO BEDTIME 06/11/21 Duloxetine HCl 60 mg PO BID 06/11/21 Estradiol 0.01% Cream 1 appl VAG SEECOM 06/11/21 Flecainide Acetate 50 mg PO BID 06/11/21 Fluticasone/Umeclidin/Vilanter [Trelegy Ellipta 100-62.5-25] 1 puff IH DAILY 06/11/21 Furosemide 20 mg PO DAILY 06/11/21 Gabapentin 300 mg PO BEDTIME 06/11/21 Levothyroxine [Synthroid*] 75 mcg PO [id number] 06/11/21 Memantine HCl 10 mg PO BID 06/11/21 Metoprolol Succinate 25 mg PO BEDTIME 06/11/21 Montelukast [Singulair*] 10 mg PO DAILY 06/11/21 Pantoprazole [Protonix Tab*] 40 mg PO DAILY 06/11/21 Potassium Chloride 20 meq PO BID 06/11/21 Quetiapine Fumarate [Seroquel] 25 mg PO BEDTIME 06/11/21 Simvastatin 40 mg PO BEDTIME 06/11/21 Tizanidine HCl 4 mg PO DAILY 06/11/21 Topiramate 100 mg PO BID 06/11/21 buPROPion HCL [Bupropion Xl] 300 mg PO DAILY 06/11/21 Acetaminophen 650 mg PO Q6H PRN 12/31/21 Benzonatate [Tessalon Perle*] 200 mg PO Q8H PRN 12/31/21 Pataday 0.7% Drops 1 drop OPTH DAILY 12/31/21 Propylene Glycol/Peg 400 [Lubricating Eye Drop] 1 drop OPTH BID 12/31/21 Physician Discharge Instructions: 1. Please schedule a follow-up with your PCP (Dr. Torres) in 3-5 days 2. Please schedule a follow-up with Neurology (Dr. Pat) in 5-7 days Diet: AHA Activity: Fall precautions Followup: Jerry Torres MD [Primary Care Provider] - Chin Pat MD [ACTIVE - CAN ADMIT] - Time spent managing pt's care (in minutes): 25
== END 2022-01-03 18:56 | disposition home health service (06) ==
LOC: ER 13:28 → ERHOLD 19:47 → 4TH 20:30
PROVIDERS: ADMIT Internal Medicine; ATTEND Internal Medicine
DX: R53.1 Weakness (principal); I48.0 Paroxysmal atrial fibrillation; E87.2 Acidosis; R06.82 Tachypnea, not elsewhere classified; D72.822 Plasmacytosis; J44.9 Chronic obstructive pulmonary disease, unspecified; M48.02 Spinal stenosis, cervical region; I10 Essential (primary) hypertension; E03.9 Hypothyroidism, unspecified; E78.5 Hyperlipidemia, unspecified; K21.9 Gastro-esophageal reflux disease without esophagitis; Z88.0 Allergy status to penicillin; Z99.81 Dependence on supplemental oxygen; Z88.2 Allergy status to sulfonamides; Z88.3 Allergy status to other anti-infective agents; Z91.018 Allergy to other foods; Z91.81 History of falling; Z79.01 Long term (current) use of anticoagulants; Z20.822 Contact with and (suspected) exposure to COVID-19
CPT/HCPCS: 96365; 96361; 93005; 87040 ×2; 87088; 85025 ×3; 87086; 80048; 36415 ×2; 83735 ×3; 82550; 85610; 80076; 83605 ×2; 84443 ×2; 81003; 84484 ×2; 82553; 84439; 83690; 80053 ×2; 83880; 70450; 71250; 72125; 71045 ×2; 72141; 97535 ×2; 97110; 97116 ×13; 97161; 97165; 97530; 99285; 87811; J3475; G0378 ×7; J7120 ×6; J7040; J7030

== ENCOUNTER 2022-02-10 14:43 | Inpatient (IN) | payer OTHER ==
[2022-02-10] MEDS ORDERED: NA CHLORIDE 0.9% 500 ML ONE (15:21)
[2022-02-10 15:35] LABS: Absolute Lymphocytes (CBC) 2.3 K/uL (0.7-4.9); Hematocrit 42.2 % (36.0-45.0); Lymphocytes % 29.1 % (15.3-44.8); MCV 95.7 fL (80-100); MPV 7.9 fL (7.6-11.3); RBC Red Blood Cell Count 4.41 M/uL (3.86-4.86)
[2022-02-10 15:56] LABS: Protime INR 1.02
[2022-02-10 16:03] LABS: Potassium 4.8 mmol/L (3.5-5.1); Troponin High Sensitivity 7.3 pg/mL (<58.9)
--- NOTE | 2022-02-10 17:02 | RAD REPORT ---
EXAM DESCRIPTION: Ino Single View02/10/2022 4:35 pm CLINICAL HISTORY: sob COMPARISON: December 2021 FINDINGS: The lungs appear clear of acute infiltrate. The heart is normal size IMPRESSION: No acute abnormalities displayed
[2022-02-10 17:54] LABS: Urine Blood Negative (Negative); Urine Glucose Negative (Negative); Urine Protein Negative (Negative); Urine Specific Gravity 1.015 (1.005-1.030); Urine pH 5.5 (5.0-7.0)
--- NOTE | 2022-02-10 18:02 | ER ---
Nurse's Notes [facility] Name: Agnes Calabrese Age: 82 yrs Sex: Female : 1940 Arrival Date: 02/10/2022 Time: 14:46 Bed 5 Private MD: Jerry Torres T Diagnosis: Bradycardia, unspecified;Hypotension, unspecified;Muscle weakness (generalized) Presentation: 02/10 15:10 Chief complaint: Patient's son or daughter states: sent from DR TORRES office due to low vg1 BP of 50s and BP 99 systolic. Pt appears to be pale, states 'feels weak' denies CP. Pt denies blood in stool or NV. Coronavirus screen:. Ebola Screen: Patient negative for fever greater than or equal to 101.5 degrees Fahrenheit, and additional compatible Ebola Virus Disease symptoms. Initial Sepsis Screen: Does the patient meet any 2 criteria? No. Patient's initial sepsis screen is negative. Does the patient have a suspected source of infection? No. Patient's initial sepsis screen is negative. Risk Assessment: Do you want to hurt yourself or someone else? Patient reports no desire to harm self or others. Onset of symptoms was February 10, 2022. 15:10 Method Of Arrival: Wheelchair vg1 15:10 Acuity: WARREN 2 vg1 Triage Assessment: 15:12 General: Appears uncomfortable, obese, Behavior is cooperative, drowsy. Pain: Denies vg1 pain. Derm: Skin is clammy, Skin is pale. 15:12 Neuro: Level of Consciousness is awake, alert, obeys commands, Oriented to person, vg1 place, time, situation. Historical: - Allergies: 15:12 clindamycin HCl (bulk); vg1 15:12 Darvocet-N 100; vg1 15:12 PENICILLINS; vg1 15:12 Strawberries; vg1 15:12 Sulfa (Sulfonamide Antibiotics); vg1 - Home Meds: 20:02 alprazolam 0.25 mg Oral tab 1 tab twice a day for Anxiety [Active]; benzonatate [address] Oral cap 1 cap 3 times per day [Active]; bupropion HCl 150 mg Oral Tb24 1 tab once daily [Active]; bupropion HCl 300 mg Oral Tb24 1 tab once daily [Active]; clopidogrel 75 mg Oral tab 1 tab once daily [Active]; donepezil 10 mg Oral tab 1 tab once daily [Active]; doxepin 50 mg Oral cap 1 cap once daily [Active]; duloxetine 60 mg Oral cpDR 2 caps once daily [Active]; Eliquis 5 mg Oral tab 2 times per day [Active]; Ellura 200 mg Oral cap daily [Active]; gabapentin 300 mg Oral cap 1 cap 3 times per day [Active]; hydrocodone-acetaminophen 7.5-325 mg Oral tab 1 tab every 8 hours [Active]; indapamide 2.5 mg Oral tab 1 tab once daily [Active]; levothyroxine 75 mcg tab 1 tab once daily [Active]; magnesium oxide 500 mg Oral tab 500 mg after meals and before bedtime [Active]; memantine 10 mg Oral tab 1 tab 2 times per day [Active]; metoprolol succinate 25 mg Oral Tb24 1 tab once daily [Active]; pantoprazole 40 mg Oral grps 1 packet once daily [Active]; potassium chloride 20 mEq Oral TbER 1 tab 2 times per day [Active]; quetiapine 200 mg Oral Tb24 1 tab once daily [Active]; simvastatin 40 mg Oral tab 1 tab once daily [Active]; tizanidine 4 mg Oral tab 1 tab daily [Active]; topiramate 200 mg Oral cp24 1 cap twice a day [Active]; Trelegy Ellipta 100-62.5-25 mcg inhalation dsdv 1 puff once daily [Active]; - PMHx: 15:12 AFIB; Alzheimer's disease; Cancer; COPD; Depression; Fibromyalgia; GERD; vg1 Hyperlipidemia; Hypertension; Hypothyroidism; insomnia; left breast cancer; lymphedema; skipped heart beats; Angina pectoris; - PSHx: 15:12 Total abdominal hysterectomy; vg1 - Immunization history:: Adult Immunizations up to date. - Family history:: not pertinent. - Social history:: Smoking status: Patient denies any tobacco usage or history of. - Hospitalizations: : No recent hospitalization is reported. Screenin:01 Abuse screen: Denies threats or abuse. Nutritional screening: No deficits noted. kl Tuberculosis screening: No symptoms or risk factors identified. Fall Risk No fall in past 12 months (0 pts). No secondary diagnosis (0 pts). IV access (20 points). Ambulatory Aid- None/Bed Rest/Nurse Assist (0 pts). Gait- Weak (10 pts.). Mental Status- Oriented to own ability (0 pts). Total Arredondo Fall Scale indicates Low Risk Score (25-44 pts). Fall prevention measures have been instituted. Side Rails Up X 2 Placed close to Nursing Station Frequent Obs/Assesments occuring As available Patient and Family Educated on Fall Prevention Program and strategies. Assessment: 15:20 General: Appears uncomfortable, Behavior is cooperative, drowsy. Pain: Denies pain. mb9 Neuro: Level of Consciousness is awake, alert, obeys commands. 15:20 Neuro: Oriented to person, place, time, situation, Separations Scientist are weak bilaterally Gait is mb9 unsteady. Cardiovascular: Denies chest pain, Heart tones S1 S2 present Rhythm is sinus bradycardia. Respiratory: Airway is patent Respiratory effort is even, unlabored, Respiratory pattern is regular, symmetrical, Breath sounds are clear bilaterally. GI: Abdomen is round. : No signs and/or symptoms were reported regarding the genitourinary system. EENT: No signs and/or symptoms were reported regarding the EENT system. Derm: Skin is intact, Skin is clammy, Skin is pale, Skin temperature is cool. Musculoskeletal: Range of motion: limited in all extremities. 16:45 General: Appears in no apparent distress. comfortable, Behavior is calm, cooperative, mb9 appropriate for age. 16:45 Pain: Denies pain. Neuro: Level of Consciousness is awake, alert, obeys commands, mb9 Oriented to person, place, time, situation. Cardiovascular: Heart tones S1 S2 present Rhythm is sinus bradycardia. Respiratory: Airway is patent Respiratory effort is even, unlabored, Respiratory pattern is regular, symmetrical. Derm: Skin is clammy, Skin is pale, Skin temperature is cool. 17:30 General: Appears in no apparent distress. comfortable. Pain: Denies pain. Neuro: Level mb9 of Consciousness is awake, alert, obeys commands, Oriented to person, place, time, situation. Cardiovascular: Rhythm is sinus bradycardia. Respiratory: Airway is patent Respiratory effort is even, unlabored, Respiratory pattern is regular, symmetrical. Derm: Skin is intact, Skin is dry, Skin is pale, Skin temperature is cool. 18:47 General: Appears in no apparent distress. comfortable. Pain: Denies pain. Neuro: Level mb9 of Consciousness is awake, alert, obeys commands, Oriented to person, place, time, situation. Cardiovascular: Rhythm is sinus bradycardia. Cardiovascular: Rhythm is sinus bradycardia. Respiratory: Airway is patent Respiratory effort is even, unlabored. Derm: Skin is intact, Skin is dry, Skin is pale, Skin temperature is cool. 19:06 Reassessment: report given to DANIEL Ricardo. mb9 Vital Signs: 15:10 BP 125 / 76; Pulse 62; Resp 17; Temp 97.8; Pulse Ox 97% on R/A; Weight 102.06 kg; vg1 Height 5 ft. 3 in. (160.02 cm); 15:20 BP 125 / 76; Pulse 55; Resp 18; Pulse Ox 92% on R/A; Pain 0/10; mb9 16:07 BP 116 / 72; Pulse 52; Resp 18; Pulse Ox 100% on R/A; Pain 0/10; mb9 16:45 BP 108 / 83; Pulse 50; Resp 13; Pulse Ox 96% on R/A; Pain 0/10; mb9 17:45 BP 125 / 65; Pulse 52; Resp 13; Pulse Ox 95% on R/A; Pain 0/10; mb9 18:48 BP 128 / 73; Pulse 51; Resp 20; Pulse Ox 96% on R/A; mb9 19:20 BP 148 / 75 Supine; Pulse 53; Resp 17 S; Pulse Ox 95% on R/A; ha1 19:23 BP 128 / 78 Sitting; Pulse 67; Resp 17 S; Pulse Ox 96% on R/A; ha1 19:26 BP 123 / 65 Standing; Pulse 97; Resp 16 S; Pulse Ox 98% on R/A; ha1 20:00 BP 90 / 53; Pulse 59; Resp 20; Pulse Ox 96% on R/A; kl 20:06 BP 124 / 70; Pulse 60; kl 15:10 Body Mass Index 39.86 (102.06 kg, 160.02 cm) vg1 ED Course: 14:46 Patient arrived in ED. rg4 14:46 Jerry Torres MD is Private Physician. rg4 14:55 Nick Herring MD is Attending Physician. rn 15:12 Triage completed. vg1 15:12 Arm band placed on. vg1 15:17 Marium Vargas RN is Primary Nurse. mb9 15:18 Placed in gown. Bed in low position. Call light in reach. Side rails up X 1. Client mb9 placed on continuous cardiac and pulse oximetry monitoring. NIBP monitoring applied. booster station operator on. 15:18 EKG done, by ED staff, reviewed by Nick Herring MD. Inserted saline lock: 22 gauge in mb9 right upper arm, using aseptic technique. Blood collected. done by Jade SANCHEZ. 15:51 Lactate Sent. mb9 15:51 Blood Culture Adult (2) Sent. mb9 15:51 Flu Sent. mb9 15:51 SARS-COV-2 RT PCR (Document "Date of Onset" if Symptomatic) Sent. mb9 15:51 Troponin HS Sent. mb9 15:51 PT-INR Sent. mb9 15:51 NT PRO-BNP Sent. mb9 15:52 Basic Metabolic Panel Sent. mb9 15:52 Inserted saline lock: 24 gauge in right hand, using aseptic technique. ,using aseptic mb9 technique. done by Jade SANCHEZ. 16:35 XRAY Chest (1 view) In Process Unspecified. EDMS 17:58 Urine Culture Sent. mb9 17:58 Urine Microscopic Only Sent. mb9 17:58 Blood Culture Adult (2) Sent. mb9 18:02 Clint Herring MD is Hospitalizing Provider. rn 20:01 No provider procedures requiring assistance completed. Patient admitted, IV remains in kl place. Administered Medications: 15:40 Drug: NS 0.9% 500 ml Route: IV; Rate: bolus; Site: right upper arm; mb9 17:58 Follow up: Response: No adverse reaction mb9 Medication: 20:04 VIS not applicable for this client. Outcome: 18:02 Decision to Hospitalize by Provider. rn 20:02 Admitted to Med/surg via stretcher. kl 20:02 Condition: improved 20:02 Instructed on the need for admit. 21:28 Patient left the ED. ha1 Signatures: Dispatcher [employer] EDMS Lauren Tran RN RN kl Nieto, Roman, MD MD rn Garcia, Rubi rg4 Connie Lieberman RN RN [email or web address] Haleigh Mccormick RN RN ha1 Marium Vargas, RN RN [email or web address] Corrections: (The following items were deleted from the chart) 15:14 15:10 Chief complaint: Patient's son or daughter states: sent from DR TORRES office due vg1 to low BP of 50s and BP 99 systolic. Pt appears to be pale, states 'feels weak' denies CP vg1 19:28 19:20 BP 148 / 75; Pulse 53bpm; Resp 17bpm; Spontaneous; Pulse Ox 95% RA; ha1 ha1
--- NOTE | 2022-02-10 18:03 | EDPHYS ---
Physician Documentation [facility] Name: Agnes Calabrese Age: 82 yrs Sex: Female : 1940 Arrival Date: 02/10/2022 Time: 14:46 Bed 5 Private MD: Jerry Torres T ED Physician Nick Herring HPI: 02/10 16:18 This 82 yrs old Female presents to ER via Wheelchair with complaints of Low BP, Low rn Pulse. 16:18 Sent from doctor's office for low BP and low HR, was in 50s HR and 90s systolic BP. rn Reports hasn't felt well "for a while", but worsening fatigue and lightheaded for last couple of days. No blood in stool. No change in medication. Takes flecainide for afib. . Onset: The symptoms/episode began/occurred at an unknown time. Severity of symptoms: At their worst the symptoms were moderate in the emergency department the symptoms have improved. The patient has not experienced similar symptoms in the past. The patient has been recently seen by a physician:. Historical: - Allergies: 15:12 clindamycin HCl (bulk); vg1 15:12 Darvocet-N 100; vg1 15:12 PENICILLINS; vg1 15:12 Strawberries; vg1 15:12 Sulfa (Sulfonamide Antibiotics); vg1 - Home Meds: 20:02 alprazolam 0.25 mg Oral tab 1 tab twice a day for Anxiety [Active]; benzonatate [address] Oral cap 1 cap 3 times per day [Active]; bupropion HCl 150 mg Oral Tb24 1 tab once daily [Active]; bupropion HCl 300 mg Oral Tb24 1 tab once daily [Active]; clopidogrel 75 mg Oral tab 1 tab once daily [Active]; donepezil 10 mg Oral tab 1 tab once daily [Active]; doxepin 50 mg Oral cap 1 cap once daily [Active]; duloxetine 60 mg Oral cpDR 2 caps once daily [Active]; Eliquis 5 mg Oral tab 2 times per day [Active]; Ellura 200 mg Oral cap daily [Active]; gabapentin 300 mg Oral cap 1 cap 3 times per day [Active]; hydrocodone-acetaminophen 7.5-325 mg Oral tab 1 tab every 8 hours [Active]; indapamide 2.5 mg Oral tab 1 tab once daily [Active]; levothyroxine 75 mcg tab 1 tab once daily [Active]; magnesium oxide 500 mg Oral tab 500 mg after meals and before bedtime [Active]; memantine 10 mg Oral tab 1 tab 2 times per day [Active]; metoprolol succinate 25 mg Oral Tb24 1 tab once daily [Active]; pantoprazole 40 mg Oral grps 1 packet once daily [Active]; potassium chloride 20 mEq Oral TbER 1 tab 2 times per day [Active]; quetiapine 200 mg Oral Tb24 1 tab once daily [Active]; simvastatin 40 mg Oral tab 1 tab once daily [Active]; tizanidine 4 mg Oral tab 1 tab daily [Active]; topiramate 200 mg Oral cp24 1 cap twice a day [Active]; Trelegy Ellipta 100-62.5-25 mcg inhalation dsdv 1 puff once daily [Active]; - PMHx: 15:12 AFIB; Alzheimer's disease; Cancer; COPD; Depression; Fibromyalgia; GERD; vg1 Hyperlipidemia; Hypertension; Hypothyroidism; insomnia; left breast cancer; lymphedema; skipped heart beats; Angina pectoris; - PSHx: 15:12 Total abdominal hysterectomy; vg1 - Immunization history:: Adult Immunizations up to date. - Family history:: not pertinent. - Social history:: Smoking status: Patient denies any tobacco usage or history of. - Hospitalizations: : No recent hospitalization is reported. ROS: 16:18 Constitutional: Negative for fever, chills, and weight loss, Eyes: Negative for injury, rn pain, redness, and discharge, Neck: Negative for injury, pain, and swelling, Cardiovascular: Negative for chest pain, palpitations Respiratory: Negative for cough, wheezing, and pleuritic chest pain, Abdomen/GI: Negative for abdominal pain, vomiting and constipation, Back: Negative for injury and pain, MS/Extremity: Negative for injury and deformity, Skin: Negative for injury, rash, and discoloration, Neuro: Negative for headache, numbness, tingling, and seizure. Exam: 16:10 ECG was reviewed by the Attending Physician. rn 16:18 Constitutional: This is a well developed, well nourished patient who is awake, alert, rn pale, and appears fatigued. Head/Face: Normocephalic, atraumatic. Eyes: Periorbital areas with no swelling, redness, or edema. ENT: dry MM Cardiovascular: Bradycardic, regular. No pulse deficits. Respiratory: No increased work of breathing, no retractions or nasal flaring. Abdomen/GI: soft, non-tender Skin: Warm, dry MS/ Extremity: Pulses equal, no cyanosis. Neuro: Somnolent but able to get into bed from wheelchair with some assistance. Moves all 4 ext with equal 4/5 strength. Sensation intact. No facial droop/weakness. No slurred speech. Vital Signs: 15:10 BP 125 / 76; Pulse 62; Resp 17; Temp 97.8; Pulse Ox 97% on R/A; Weight 102.06 kg; vg1 Height 5 ft. 3 in. (160.02 cm); 15:20 BP 125 / 76; Pulse 55; Resp 18; Pulse Ox 92% on R/A; Pain 0/10; mb9 16:07 BP 116 / 72; Pulse 52; Resp 18; Pulse Ox 100% on R/A; Pain 0/10; mb9 16:45 BP 108 / 83; Pulse 50; Resp 13; Pulse Ox 96% on R/A; Pain 0/10; mb9 17:45 BP 125 / 65; Pulse 52; Resp 13; Pulse Ox 95% on R/A; Pain 0/10; mb9 18:48 BP 128 / 73; Pulse 51; Resp 20; Pulse Ox 96% on R/A; mb9 19:20 BP 148 / 75 Supine; Pulse 53; Resp 17 S; Pulse Ox 95% on R/A; ha1 19:23 BP 128 / 78 Sitting; Pulse 67; Resp 17 S; Pulse Ox 96% on R/A; ha1 19:26 BP 123 / 65 Standing; Pulse 97; Resp 16 S; Pulse Ox 98% on R/A; ha1 20:00 BP 90 / 53; Pulse 59; Resp 20; Pulse Ox 96% on R/A; kl 20:06 BP 124 / 70; Pulse 60; kl 15:10 Body Mass Index 39.86 (102.06 kg, 160.02 cm) vg1 MDM: 14:55 Patient medically screened. rn 17:58 Differential Diagnosis weakness, medication side effect, dehydration, cardiac event. rn Data reviewed: vital signs, nurses notes, lab test result(s), EKG, radiologic studies, plain films. 18:01 Counseling: I had a detailed discussion with the patient and/or guardian regarding: the rn historical points, exam findings, and any diagnostic results supporting the discharge/admit diagnosis, lab results, radiology results, the need for further work-up and treatment in the hospital. Response to treatment: the patient's symptoms have mildly improved after treatment, and as a result, I will admit patient. Admission orders: after a detailed discussion of the patient's condition and case, the admit orders are written by me. 02/10 15:16 Order name: Basic Metabolic Panel; Complete Time: 16:40 02/10 15:16 Order name: CBC with Diff; Complete Time: 16:40 02/10 15:16 Order name: NT PRO-BNP; Complete Time: 16:40 02/10 15:16 Order name: PT-INR; Complete Time: 16:40 02/10 15:16 Order name: Troponin HS; Complete Time: 16:40 02/10 15:16 Order name: SARS-COV-2 RT PCR (Document "Date of Onset" if Symptomatic); Complete Time: rn 16:40 02/10 15:16 Order name: XRAY Chest (1 view); Complete Time: 17:09 02/10 15:16 Order name: Flu; Complete Time: 16:40 02/10 15:16 Order name: Urine Culture 02/10 15:16 Order name: Urine Microscopic Only 02/10 15:16 Order name: Blood Culture Adult (2) 02/10 15:16 Order name: Lactate; Complete Time: 16:40 02/10 17:54 Order name: Urine Dipstick-Ancillary; Complete Time: 17:56 EDMS 02/10 15:16 Order name: EKG; Complete Time: 15:17 rn 02/10 15:16 Order name: Cardiac monitoring; Complete Time: 15:17 rn 02/10 15:16 Order name: EKG - Nurse/Tech; Complete Time: 15:17 rn 02/10 15:16 Order name: IV Saline Lock; Complete Time: 15:17 rn 02/10 15:16 Order name: Labs collected and sent; Complete Time: 15:51 rn 02/10 15:16 Order name: O2 Per Protocol; Complete Time: 15:17 rn 02/10 15:16 Order name: O2 Sat Monitoring; Complete Time: 15:17 rn 02/10 15:16 Order name: Urine Dipstick-Ancillary (obtain specimen); Complete Time: 17:58 rn 02/10 18:06 Order name: Orthostatics; Complete Time: 19:30 ss EC:10 Rate is 52 beats/min. Rhythm is regular. QRS [place] is Normal. [place] interval is prolonged rn at 214 msec. QRS interval is normal. QT interval is normal. No Q waves. T waves are Inverted in leads V1, V2, V3, V4. No ST changes noted. Clinical impression: NSR w/ Non-specific ST/T Changes and 1st degree heart block. Interpreted by me. Reviewed by me. Administered Medications: 15:40 Drug: NS 0.9% 500 ml Route: IV; Rate: bolus; Site: right upper arm; mb9 17:58 Follow up: Response: No adverse reaction mb9 Disposition Summary: 02/10/22 18:02 Hospitalization Ordered Hospitalization Status: Observation rn Provider: Clint Herring rn Location: Telemetry/MedSurg (observation) rn Condition: Stable rn Problem: new rn Symptoms: have improved rn Bed/Room Type: Standard rn Room Assignment: 206(02/10/22 19:17) Diagnosis - Bradycardia, unspecified rn - Hypotension, unspecified rn - Muscle weakness (generalized) rn Forms: - Medication Reconciliation Form rn - SBAR form rn Signatures: Dispatcher [employer] EDID Lauren Tran RN Myranda Osorio RN RN Nick Herring MD MD rn Smirch, Shelby, RN RN ss Garcia, Victoria RN DANIEL [email or web address] Marium Vargas, RN RN mb9 Corrections: (The following items were deleted from the chart) 15:18 15:17 Urine Culture+BA.LAB.BRZ ordered. EDID EDMS 15:18 15:17 UA MICROSCOPIC+U.LAB.BRZ ordered. EDID EDMS 17:00 16:10 Rate is 71 beats/min. Rhythm is regular. QRS [place] is Normal. [place] interval is rn normal. QRS interval is normal. QT interval is normal. No Q waves. T waves are Normal. No ST changes noted. Clinical impression: NSR w/ Non-specific ST/T Changes. Interpreted by me. Reviewed by me. rn : 17:58 Differential Diagnosis weakness, CVA, medication side effect, dehydration, pattern marker event. rn : 17:58 Data reviewed: vital signs, nurses notes, lab test result(s), EKG, radiologic rn studies, CT scan, plain films, rn : 18:02 rn mw
[2022-02-10 18:05] LABS: Urine Bacteria <20 /HPF (<20); Urine Mucus Slight /HPF (None Seen); Urine WBC Clump Rare /HPF (None Seen)
--- NOTE | 2022-02-10 19:03 | P.HP ---
Certification for Inpatient Patient admitted to: Observation With expected LOS: <2 Midnights Patient will require the following post-hospital care: None Practitioner: I am a practitioner with admitting privileges, knowledge of patient current condition, hospital course, and medical plan of care. Services: Services provided to patient in accordance with Admission requirements found in Title 42 Section 412.3 of the Code of Federal Regulations Patient History Date of Service: 02/10/22 Reason for admission: Near syncope, bradycardia History of Present Illness: 82-year-old female with history of atrial fibrillation, COPD, GERD, hypertension, hyperlipidemia, hypothyroidism presents the emergency department for hypotension, bradycardia, near syncope. She reports feeling generally weak for the course of the past few days noticed that her blood pressure and heart rate have been running low she is seen by her primary care doctor who was concerned as her heart rate was in the low 50s systolic blood pressure was in the 90s and she was diaphoretic. Patient reports that she gets sweaty, weak when changing positions especially. She is evaluated in the emergency department labs were significant for glucose 170. She is given 500 cc normal saline bolus which improved her blood pressure, she states she feels "a little better" she still mildly bradycardic with a rate in the 50s. ED read wishes to admit under observation for bradycardia, hypotension, near syncope. Allergies clindamycin HCl [From Cleocin] Allergy (Severe, Verified 06/10/21 22:02) Hives/Rash clindamycin palmitate HCl [From Cleocin] Allergy (Severe, Verified 06/10/21 22:02) Hives/Rash clindamycin phosphate [From Cleocin] Allergy (Severe, Verified 06/10/21 22:02) Hives/Rash Penicillins Allergy (Severe, Verified 06/10/21 22:02) Hives/Rash Sulfa (Sulfonamide Antibiotics) [Sulfa(Sulfonamide Antibiotics)] Allergy (Severe, Verified 06/10/21 22:02) Hives/Rash propoxyphene [From Darvocet-N 100] Allergy (Verified 06/10/21 22:02) Unknown strawberries Allergy (Severe, Uncoded 07/11/20 05:19) Hives/Rash Home Medications: Albuterol Sulfate [Proair Respiclick] 2 puff IH Q6HP PRN 06/11/21 Apixaban [Eliquis] 5 mg PO BID 06/11/21 Cranberry Fruit Extract [Ellura] 200 mg PO DAILY 06/11/21 Cyanocobalamin (Vitamin B-12) [Vitamin B12] 1,000 mcg PO DAILY 06/11/21 Cyclosporine [Restasis] 1 drop EACH EYE TID 06/11/21 Donepezil HCl 10 mg PO DAILY 06/11/21 Doxepin HCl 100 mg PO BEDTIME 06/11/21 Duloxetine HCl 60 mg PO BID 06/11/21 Estradiol 0.01% Cream 1 appl VAG SEECOM 06/11/21 Flecainide Acetate 50 mg PO BID 06/11/21 Fluticasone/Umeclidin/Vilanter [Trelegy Ellipta 100-62.5-25] 1 puff IH DAILY 06/11/21 Furosemide 20 mg PO DAILY 06/11/21 Gabapentin 300 mg PO BEDTIME 06/11/21 Levothyroxine [Synthroid*] 75 mcg PO [id number] 06/11/21 Memantine HCl 10 mg PO BID 06/11/21 Metoprolol Succinate 25 mg PO BEDTIME 06/11/21 Montelukast [Singulair*] 10 mg PO DAILY 06/11/21 Pantoprazole [Protonix Tab*] 40 mg PO DAILY 06/11/21 Potassium Chloride 20 meq PO BID 06/11/21 Quetiapine Fumarate [Seroquel] 25 mg PO BEDTIME 06/11/21 Simvastatin 40 mg PO BEDTIME 06/11/21 Tizanidine HCl 4 mg PO DAILY 06/11/21 Topiramate 100 mg PO BID 06/11/21 buPROPion HCL [Bupropion Xl] 300 mg PO DAILY 06/11/21 Acetaminophen 650 mg PO Q6H PRN 12/31/21 Benzonatate [Tessalon Perle*] 200 mg PO Q8H PRN 12/31/21 Pataday 0.7% Drops 1 drop OPTH DAILY 12/31/21 Propylene Glycol/Peg 400 [Lubricating Eye Drop] 1 drop OPTH BID 12/31/21 - Past Medical/Surgical History Diabetic: No -: Lymphedema -: Afib -: L breast cancer -: PE -: Meniere's Disease -: Former smoker -: Recurrent UTIs -: Fibromyalgia -: GERD -: Insomnia -: Depression -: Neuropathy -: s/p Left Mastectomy -: PATIENCE TKA -: Cervical fusion -: Lumbar fusion -: Appendectomy -: Hysterectomy Psychosocial/ Personal History: Patient lives in an assisted living facility- [facility] - Family History Father -: Diabetes Notes: heart attack. alcoholic - Social History Smoking Status: Former smoker Alcohol use: No CD- Drugs: No Caffeine use: No Place of Residence: Home Review of Systems 10-point ROS is otherwise unremarkable General: Weakness, Malaise Cardiovascular: Light Headedness (with change in position along with diaphoresis) Physical Examination - Physical Exam General: Alert, In no apparent distress, Oriented x3, Obese HEENT: Atraumatic, PERRLA, Mucous membr. moist/pink, EOMI, Sclerae nonicteric Neck: Supple, 2+ carotid pulse no bruit, No LAD, Without JVD or thyroid abnormality Respiratory: Clear to auscultation bilaterally, Normal air movement Cardiovascular: Regular rate/rhythm, Normal S1 S2 Capillary refill: <2 Seconds Gastrointestinal: Normal bowel sounds, No tenderness Musculoskeletal: No tenderness Integumentary: No rashes Neurological: Normal gait, Normal speech, Normal strength at 5/5 x4 extr, Normal tone, Normal affect Lymphatics: No axilla or inguinal lymphadenopathy - Studies Laboratory Data (last 24 hrs) 02/10/22 15:24: PT 12.1, INR 1.02 02/10/22 15:24: WBC 7.90, Hgb 13.9, Hct 42.2, Plt Count 334 02/10/22 15:24: Sodium 138, Potassium 4.8, BUN 11, Creatinine 1.10, Glucose 170 H Microbiology Data (last 24 hrs): 02/10/22 15:28 Nasopharnyx Influenza Type A Antigen Screen - Final 02/10/22 15:28 Nasopharnyx Influenza Type B Antigen Screen - Final Assessment and Plan - Plan Assessment: Near syncope, hypotension/bradycardia Atrial fibrillation COPD GERD HTN Hypothyroidism Plan: Near syncope, hypotension/bradycardia: BP and symptoms improved with IVF in ED, orthostatic VS ordered and pending. Review home meds, patient unsure aside from flecanide what she takes for BP. Monitor on tele, repeat trops. Echo ordered. Atrial fibrillation: Continue as above, restart anticoagulation if she is taking at home, pt unsure. Hold beta barbara if present given low BP/HR COPD: Continue home meds. GERD: Continue home meds. HTN: Review home meds, may need adjusted. Hypothyroidism: Thyroid panel in AM, restart home meds. DVT PPX: Lovenox-start anticoagulation if on at home. Code status:Full Discharge Plan: Home Plan to discharge in: 24 Hours - Advance Directives Does patient have a Living Will: No Does patient have a Durable POA for Healthcare: Yes - Code Status/Comfort Care Code Status Assessed: Yes (Full code) Critical Care: No Time Spent Managing Pts Care (In Minutes): 55
[2022-02-10] MEDS ORDERED: ONDANSETRON 4 MG/2 ML VIAL IV PRN (21:27)
[2022-02-10] MEDS: Ringers Lactate 1,000 ML IV SCH (21:50)
[2022-02-10 23:48] VITALS: BMI 39.8
[2022-02-11] MEDS: TRAMADOL HCL 50 MG TAB PO PRN ×2 (00:53→22:13)
[2022-02-11 04:36] LABS: Hematocrit 42.3 % (36.0-45.0); Lymphocytes % 27.1 % (15.3-44.8); MCV 96.4 fL (80-100); MPV 7.9 fL (7.6-11.3); RBC Red Blood Cell Count 4.39 M/uL (3.86-4.86)
[2022-02-11 05:10] LABS: Magnesium 1.8 mg/dL (1.8-2.4); Thyroid Stimulating Hormone 3.29 uIU/mL (0.360-3.740); Troponin High Sensitivity 9.3 pg/mL (<58.9)
[2022-02-11] MEDS ORDERED: MAGNESIUM SULFATE 1 gm IVPB 1 GM/100 ML BAG IV ONE (09:00)
[2022-02-11] MEDS: Ringers Lactate 1,000 ML IV SCH ×3 (09:27→22:23)
[2022-02-11] MEDS: ENOXAPARIN 40 MG/0.4 ML SQ SCH (09:28)
--- NOTE | 2022-02-11 13:59 | EKG ---
Test Date: 2022-02-10 Test Time: 15:04:42 Car Salter: MEASUREMENT RESULTS: Intervals: Rate: 62 SC: 214 QRSD: 100 QT: 426 QTc: 432 [place]: P: 32 SC: 214 QRS: 39 T: 41 INTERPRETIVE STATEMENTS: Sinus rhythm with 1st degree AV block ST & T wave abnormality, consider anterior ischemia Abnormal ECG Compared to ECG 12/30/2021 15:12:32 First degree AV block now present Possible ischemia now present Right-axis deviation no longer present ST (T wave) deviation still present Electronically Signed On 02-11-22 13:58:15 CDT by Christopher Chirinos
--- NOTE | 2022-02-11 14:16 | ECHO ---
HEIGHT: 5 ft 3 in WEIGHT: 225 lb 0 oz DATE OF STUDY: 02/11/[address]: Andrew Bailey NP 2-DIMENSIONAL: YES M.MODE: YES DOPPLER: YES COLOR FLOW: YES TDS: APICALS PORTABLE: YES DEFINITY: NO BUBBLE STUDY: NO DIAGNOSIS: NEAR SYNCOPE CARDIAC HISTORY: CATHERIZATION: SURGERY: PROSTHETIC VALVE: PACEMAKER: MEASUREMENTS (cm) DIASTOLIC (NORMALS) SYSTOLIC (NORMALS) IVSd 0.9 (0.6-1.2) LA Diam 3.7 (1.9-4.0) LVEF 66% LVIDd 4.6 (3.5-5.7) LVIDs 2.9 (2.0-3.5) %FS 36% LVPWd 0.8 (0.6-1.2) Ao Diam 2.7 (2.0-3.7) 2 DIMENSIONAL ASSESSMENT: RIGHT ATRIUM: NORMAL LEFT ATRIUM: NORMAL RIGHT VENTRICLE: NORMAL LEFT VENTRICLE: NORMAL TRICUSPID VALVE: MILD TRICUSPID REGURGITATION MITRAL VALVE: NORMAL PULMONIC VALVE: NORMAL AORTIC VALVE: NORMAL PERICARDIAL EFFUSION: SMALL AORTIC ROOT: NORMAL LEFT VENTRICULAR WALL MOTION: NORMAL. DOPPLER/COLOR FLOW: MIDL TRICUSPID REGURGITATION. COMMENTS: NORMAL LEFT VENTRICULAR EJECTION FRACTION 60-65%. NORMAL WALL MOTION. MILD TRICUSPID REGURGITATION. SMALL PERICARDIAL EFFUSION. TECHNOLOGIST: RICH ECHEVERRIA
--- NOTE | 2022-02-11 14:59 | CON ---
Date of Consultation: 02/11/2022 Reason For Consultation: AFib management. History Of Present Illness: An 82-year-old female, history of atrial fibrillation which is managed v young well on flecainide and metoprolol. Has COPD, acid reflux, dyslipidemia, hypothyroidism. Present ed to emergency room for hypotension, bradycardia, and near syncopal episode. Heart rate was in the low 50s, blood pressure was in the low 90s. After IV fluids, the patient felt better and she is doin g better already. No active symptoms at the present time. Past Medical History: As outlined above in HPI. Medications: Refer to reconciliation sheet for detailed list. Allergies: CLINDAMYCIN. Family History: No premature coronary artery disease or cancer. Social History: Does not smoke or drink. Does not use any drugs. Review of Systems: All systems reviewed and they were negative except what mentioned in HPI. Physical Examination: Vital Signs: Reviewed. Head and Neck: Pupils are equal, reactive to light. Intact eye movements. No JVD. No cervical lym phadenopathy. Neck is supple. Thyroid is not enlarged. Lungs: Clear to auscultation bilaterally. No rhonchi, wheezing, or crackles. No accessory muscle u se. Heart: Regular rate and rhythm. No extra sounds. Abdomen: Soft, nontender. Bowel sounds positive. No organomegaly. No masses or hernia. No rigidi ty or rebound. Extremities: No clubbing or cyanosis. Intact pulses. Skin: No rash. Neurologic: Alert, awake, oriented x3. No acute focal deficits appreciated. Investigations: BUN 9, creatinine 1.1. Troponin x3 are negative. Hemoglobin is 13.8. Assessment And Recommendations: 1.Atrial fibrillation. She is in sinus now and she is requiring metoprolol and flecainide to keep t he atrial fibrillation controlled. Continue flecainide and hold metoprolol for now and once her bloo d pressure is better, to restart metoprolol at half dose with what she was taking, which means she wi ll take 12.5 mg daily instead of 25 mg. This patient had the risks for falling with her passing out. Recommend left atrial appendage closure in the future. Meanwhile, aspirin 81 mg daily. 2.Syncope due to hypotension. This is resolved. Holding the metoprolol for now, plan to restart it within next 24 hours at half dose what she was taking and monitor clinically. SR/MODL Voice ID: [id number] Report ID: [id number]
--- NOTE | 2022-02-11 19:56 | P.PN ---
Date of Service: 02/11/22 Subjective: received IVF, feels slightly better still diaphoretic and symptomatic when changing position HR and BP slightly improved ROS: 10 point ROS as noted above, otherwise negative Physical Exam: Gen: NAD, AOx3 HEENT: normal conjunctiva, sclera anicteric CV: regular rate & rhythm, no edema Pulm: non-labored respirations, clear bilaterally Abd: soft, non-tender, non-distended Skin: no rashes, no lesions Neuro: normal speech, normal affect, moves all extremities, generalized weakness vitals reviewed Problem List Near syncope, hypotension/bradycardia Atrial fibrillation, paroxysmal COPD, chronic GERD HTN Hypothyroidism near syncope, hypotension/bradycardia HR increased with change of position, with diaphoresis ?orthostatic vs autonomic dysfunction likely exacerbated by dehydration and medications beta barbara on hold - previously dc'd and lead to afib/palpitations; will discuss further with cardiology confirm home meds patient states she is on eliquis and "some other blood thinner" also high risk of falls cardiology consulted confirm home meds, restart weakness/debility, PT consulted VTE: lovenox Code: full Dispo: back to assisted living, ~1-2 days Time Spent Managing Pts Care (In Minutes): 35
[2022-02-11] MEDS: QUETIAPINE 25 MG TAB PO SCH (22:04)
[2022-02-11] MEDS: TOPIRAMATE 100 MG TAB PO SCH (22:04)
[2022-02-11] MEDS: GABAPENTIN 300 MG CAP PO SCH (22:04)
[2022-02-11] MEDS: DULOXETINE 30 MG CAP PO SCH (22:04)
[2022-02-11] MEDS: METOPROLOL XL 25 MG TAB PO SCH (22:05)
[2022-02-11] MEDS: MEMANTINE HCL 10 MG TABLET PO SCH (22:05)
[2022-02-12] MEDS: LEVOTHYROXINE SOD 0.075 MG TAB PO SCH (05:38)
[2022-02-12 05:50] LABS: Absolute Lymphocytes (CBC) 2.5 K/uL (0.7-4.9); Hematocrit 41.3 % (36.0-45.0); Lymphocytes % 28.7 % (15.3-44.8); MCV 94.8 fL (80-100); MPV 8.4 fL (7.6-11.3); RBC Red Blood Cell Count 4.36 M/uL (3.86-4.86)
[2022-02-12 06:05] LABS: Magnesium 1.9 mg/dL (1.8-2.4)
[2022-02-12 06:37] LABS: Blood Morphology Comment NOT SEEN (NOT SEEN); Platelet Estimate ADEQ; White Blood Cell Scan OK (OK)
[2022-02-12] MEDS: BUPROPION HCL XL 150 MG TAB PO SCH (09:51)
[2022-02-12] MEDS: ENOXAPARIN 40 MG/0.4 ML SQ SCH (09:51)
[2022-02-12] MEDS: TOPIRAMATE 100 MG TAB PO SCH ×2 (09:52→20:53)
[2022-02-12] MEDS: DULOXETINE 30 MG CAP PO SCH ×2 (09:52→20:54)
[2022-02-12] MEDS: CRANBERRY FRUIT EXTRACT 200 MG CAP PO SCH (09:52)
[2022-02-12] MEDS: MEMANTINE HCL 10 MG TABLET PO SCH ×2 (09:52→20:53)
[2022-02-12] MEDS: MONTELUKAST 10 MG TAB PO SCH (09:52)
[2022-02-12] MEDS: DONEPEZIL HCL 5 MG TAB PO SCH (09:52)
--- NOTE | 2022-02-12 16:13 | PN ---
Date of Progress Note: 02/12/2022 Subjective: Seen by bedside. Doing very well. Remained stable overnight. Review of Systems: No chest pain, shortness of breath, orthopnea, or cough. No nausea, vomiting, diarrhea. No abdomina l pain. No dysuria, polyuria, or urinary urgency. All other systems reviewed and they were negative . Physical Examination: Vital Signs: Reviewed. Head and Neck: Pupils are equal, reactive to light. Intact eye movements. No JVD. No cervical lym phadenopathy. Neck is supple. Thyroid is not enlarged. Lungs: Clear to auscultation bilaterally. No rhonchi, wheezing, or crackles. No accessory muscle u se. Heart: Regular rate and rhythm. No extra sounds. Abdomen: Soft, nontender. Bowel sounds positive. No organomegaly. No masses or hernia. No rigidi ty or rebound. Extremities: No edema, clubbing, or cyanosis. Intact pulses. Skin: No rash. Neurologic: Alert, awake, oriented x3. No acute focal deficits appreciated. Investigations: BUN 8, creatinine 0.81, and hemoglobin is 13.8. Assessment And Recommendations: 1.Atrial fibrillation, now in sinus and rate is controlled. Continue metoprolol at 12.5 twice a day and flecainide. 2.Syncope due to hypotension and bradycardia. Decrease the metoprolol and blood pressure is holding very well and the patient from Cardiology standpoint is stable and Cardiology will sign off on the case, and asked the patient to follow up on an outpatient basis. /RADHA Voice ID: [id number] Report ID: [id number]
--- NOTE | 2022-02-12 16:56 | CON ---
History Of Present Illness: This is an 82-year-old female, I was consulted for bacteremia secondary to gram-positive cocci. Patient was brought in after being evaluated at primary care clinic, she was found to be hypotensive and episode of syncope and patient was transferred to hospital for evaluatio n and eventually admitted to the hospital for further evaluation of syncope and hypotension. Blood c ultures are growing gram-positive cocci. Patient has significant allergies to clindamycin, sulfa flaca gs, and quinolones. Denies any chest pain, abdominal pain, constipation, or diarrhea. Does have pro blem with reflux. Past Medical History: Includes lymphedema, atrial fibrillation, left breast cancer with mastectomy, pulmonary embolism, Meniere's disease, former smoker, recurrent urinary tract infection, fibromyalgia , gastroesophageal reflux disease, insomnia, depression, anxiety, neuropathy, bilateral total knee ar throplasty, cervical fusion, lumbar fusion, appendectomy, hysterectomy. Social History: Tobacco positive. Alcohol social. Family History: Noncontributory. Medications: See MARS for other medications. Allergies: SULFA DRUGS, CLINDAMYCIN, AND QUINOLONES. Review of Systems: A 10-point review was performed. Physical Examination: General: This is an 82-year-old female, lying in bed, not in any acute cardiopulmonary distress. Vital Signs: Temperature 97, pulse 88, respirations 16, blood pressure 117/54. HEENT: Unremarkable. Neck: Supple. Lungs: Basal crackles. Heart: S1, S2. Regular. Abdomen: Soft, nontender. Bowel sounds are present. Extremity: Trace edema. Laboratory Data: Shows sodium 138, potassium 4, chloride 106, bicarb 25, BUN 8, creatinine 0.8. Glu cose is 99. WBC 8.8, hemoglobin 13.8, platelets 176. Micro data shows gram-positive cocci in cluste r and gram-positive cocci in blood cultures done on February 10, gram-positive cocci in clusters. Isatu leyva's chest x-ray done on 02/10/2022 shows left-sided infiltrate. Assessment And Plan: 82-year-old female with multiple medical problems, coming in with evaluation of syncope and hypotension. Blood cultures positive for gram-positive cocci with possible staph or str ep, pending sensitivity and specificity. We will recommend to start patient on Rocephin 2 g daily an d monitor repeat blood cultures. Continue current treatment and pulmonary hygiene. Patient requirin g 2 L of nasal cannula at this time. Hypoxia possibly secondary to chronic obstructive pulmonary dis ease versus pneumonitis. No other recommendation at this time. Thank you, Dr. Herring, for consult. NF/MODL Voice ID: [id number] Report ID: [id number]
[2022-02-12] MEDS: CEFTRIAXONE 2,000 MG in NA CHLORIDE 0.9% 100 ML IV SCH (17:04)
--- NOTE | 2022-02-12 17:31 | P.PN ---
Date of Service: 02/12/22 Subjective: no acute events overnight feels slightly better, less diaphoretic with change of position ROS: 10 point ROS as noted above, otherwise negative Physical Exam: Gen: NAD, AOx3 HEENT: normal conjunctiva, sclera anicteric CV: regular rate & rhythm, trace pedal edema Pulm: non-labored respirations, clear bilaterally Abd: soft, non-tender, non-distended Neuro: normal speech, normal affect, moves all extremities, generalized weakness vitals reviewed Problem List Near syncope, hypotension/bradycardia Atrial fibrillation, paroxysmal COPD, chronic GERD HTN Hypothyroidism near syncope, hypotension/bradycardia HR increased with change of position, with diaphoresis ?orthostatic vs autonomic dysfunction likely exacerbated by dehydration and medications beta barbara initially heldd - previously dc'd and lead to afib/palpitations restarted at half dose 12.5mg at bedtime 02/11, blood pressure on low-normal range dc IVF, monitor blood pressure /symptoms confirm home meds patient states she is on eliquis and "some other blood thinner" also high risk of falls cardiology consulted confirm home meds, restart weakness/debility, PT consulted 04/23 blood cultures: GPC+ start rocephin empirically, ID consulted pt denies UTI symptoms, no fever possible contamination VTE: lovenox Code: full Dispo: back to assisted living, ~1 days Time Spent Managing Pts Care (In Minutes): 35
[2022-02-12] MEDS: APIXABAN 5 MG TABLET PO SCH (20:53)
[2022-02-12] MEDS: GABAPENTIN 300 MG CAP PO SCH (20:53)
[2022-02-12] MEDS: QUETIAPINE 25 MG TAB PO SCH (20:53)
[2022-02-12] MEDS: METOPROLOL XL 25 MG TAB PO SCH (20:54)
[2022-02-12] MEDS: TRAMADOL HCL 50 MG TAB PO PRN (21:00)
[2022-02-12 22:21] VITALS: O2SAT 94
[2022-02-13] MEDS: LEVOTHYROXINE SOD 0.075 MG TAB PO SCH (05:36)
[2022-02-13] MEDS ORDERED: CEFTRIAXONE 2,000 MG in NA CHLORIDE 0.9% 100 ML IV SCH (09:00)
[2022-02-13] MEDS: BUPROPION HCL XL 150 MG TAB PO SCH (10:19)
[2022-02-13] MEDS: MEMANTINE HCL 10 MG TABLET PO SCH (10:19)
[2022-02-13] MEDS: DONEPEZIL HCL 5 MG TAB PO SCH (10:19)
[2022-02-13] MEDS: CEFTRIAXONE 2,000 MG in NA CHLORIDE 0.9% 100 ML IV SCH (10:19)
[2022-02-13] MEDS: MONTELUKAST 10 MG TAB PO SCH (10:19)
[2022-02-13] MEDS: APIXABAN 5 MG TABLET PO SCH (10:20)
[2022-02-13] MEDS: TOPIRAMATE 100 MG TAB PO SCH (10:20)
[2022-02-13] MEDS: DULOXETINE 30 MG CAP PO SCH (10:20)
[2022-02-13] MEDS: TRAMADOL HCL 50 MG TAB PO PRN (10:20)
[2022-02-13] MEDS: CRANBERRY FRUIT EXTRACT 200 MG CAP PO SCH (10:20)
[2022-02-13 12:34] VITALS: BP 128/63; TEMP 97.2
--- NOTE | 2022-02-13 19:58 | P.DS ---
Admission Date: 02/10/22 Discharge Date: 02/13/22 Disposition: DC HOME/HOME HEALTH CARE Discharge Condition: GOOD Reason for Admission: Near syncope, bradycardia Consultations: Cardiology - Dr. Chirinos ID - Dr. Gray Brief History of Present Illness: 82-year-old female with history of atrial fibrillation, COPD, GERD, hypertension, hyperlipidemia, hypothyroidism presents the emergency department for hypotension, bradycardia, near syncope. She reports feeling generally weak for the course of the past few days noticed that her blood pressure and heart rate have been running low she is seen by her primary care doctor who was concerned as her heart rate was in the low 50s systolic blood pressure was in the 90s and she was diaphoretic. Patient reports that she gets sweaty, weak when changing positions especially. She is evaluated in the emergency department labs were significant for glucose 170. She is given 500 cc normal saline bolus which improved her blood pressure, she states she feels "a little better" she still mildly bradycardic with a rate in the 50s Hospital Course: Problem List Near syncope, hypotension/bradycardia Atrial fibrillation, paroxysmal COPD, chronic GERD HTN Hypothyroidism Patient presented with low blood pressure, and diaphoresis with change in position. She responded well and symptoms improved with IV fluids and decreasing her metoprolol dose to 12.5mg from 25mg. Cardiology was consulted, recommended continue felcainide, and metoprolol at 12.5mg, echocardiogram was unchanged compared to most recent.. She was noted to have increased heart rate with orthostatics / change in position, which improved with hydration. Suspected autonomic dysfunction exacerbated by medications and dehydration. PT was consulted, patient ambulated in the hallways, but would get short of breath and fatigued. Recommend continued PT at her assisted living facility. Cardiology discussed with patient to follow up in office, to have further discussions of possible atrial appendage closer. Patient initially had 1/4 blood cultures growing staph hominis, which later resulted with 2 of 4 blood cultures. Her urine was partially concerning for UTI, however patient denied any fever, no UTI symptoms. She was monitored off antibiotics, and repeat blood culture obtained on 02/12. She remained afebrile. 2/4 blood cultures on presentation and repeat blood cultures from 02/12 were without growth - off antibiotics. ID was consulted, empirically started on rocephin for possible UTI, urine culture grew 2+ gram negative rods and mixed chapin. Patient is discharged with 1 week total of antibiotics, Keflex per ID recommendations. Discussed unlikely to be having endocarditis, afebrile and negative blood cultures off antibiotics, and only 2/4 initial cultures positive. Follow up: Cardiology in ~2 weeks Vital Signs/Physical Exam: Temp Pulse Resp BP Pulse Ox 97.2 F 63 16 128/63 97 02/13/22 12:00 02/13/22 12:00 02/13/22 12:00 02/13/22 12:00 02/13/22 12:00 Physical Exam: Gen: NAD, AOx3 HEENT: normal conjunctiva, sclera anicteric CV: regular rate & rhythm, trace pedal edema Pulm: non-labored respirations, clear bilaterally Abd: soft, non-tender, non-distended Neuro: normal speech, normal affect, moves all extremities, generalized weakness Laboratory Data at Discharge: WBC 8.80 K/uL (4.3-10.9) 02/12/22 05:20 Hgb 13.8 g/dL (12.0-15.0) 02/12/22 05:20 Hct 41.3 % (36.0-45.0) 02/12/22 05:20 Plt Count 176 K/uL (152-406) D 02/12/22 05:20 PT 12.1 SECONDS (9.2-12.8) 02/10/22 15:24 INR 1.02 02/10/22 15:24 Sodium 138 mmol/L (136-145) 02/12/22 05:20 Potassium 4.0 mmol/L (3.5-5.1) 02/12/22 05:20 BUN 8 mg/dL (7-18) 02/12/22 05:20 Creatinine 0.81 mg/dL (0.55-1.3) 02/12/22 05:20 Glucose 99 mg/dL (74-106) 02/12/22 05:20 Magnesium 1.9 mg/dL (1.8-2.4) 02/12/22 05:20 Home Medications: Albuterol Sulfate [Proair Respiclick] 2 puff IH Q6HP PRN 06/11/21 Apixaban [Eliquis] 5 mg PO BID 06/11/21 Cyanocobalamin (Vitamin B-12) [Vitamin B12] 1,000 mcg PO DAILY 06/11/21 Cyclosporine [Restasis] 1 drop EACH EYE TID 06/11/21 Donepezil HCl 10 mg PO DAILY 06/11/21 Duloxetine HCl 60 mg PO BID 06/11/21 Estradiol 0.01% Cream 1 appl VAG SEECOM 06/11/21 Flecainide Acetate 50 mg PO BID 06/11/21 Fluticasone/Umeclidin/Vilanter [Trelegy Ellipta 100-62.5-25] 1 puff IH DAILY 0 06/11/21 Gabapentin 300 mg PO BEDTIME 06/11/21 Levothyroxine [Synthroid*] 75 mcg PO [id number] 06/11/21 Memantine HCl 10 mg PO BID 06/11/21 Montelukast [Singulair*] 10 mg PO DAILY 06/11/21 Pantoprazole [Protonix Tab*] 40 mg PO DAILY 06/11/21 Potassium Chloride 20 meq PO BID 06/11/21 Quetiapine Fumarate [Seroquel] 25 mg PO BEDTIME 06/11/21 Simvastatin 40 mg PO BEDTIME 06/11/21 Tizanidine HCl 4 mg PO DAILY 06/11/21 Topiramate 100 mg PO BID 06/11/21 buPROPion HCL [Bupropion Xl] 300 mg PO DAILY 06/11/21 Acetaminophen 650 mg PO Q6H PRN 12/31/21 Benzonatate [Tessalon Perle*] 200 mg PO Q8H PRN 12/31/21 Pataday 0.7% Drops 1 drop OPTH DAILY 12/31/21 Propylene Glycol/Peg 400 [Lubricating Eye Drop] 1 drop OPTH BID 12/31/21 Cranberry Fruit Extract [Ellura] 200 mg PO DAILY 02/11/22 Cephalexin [Keflex] 500 mg PO Q6HR 7 Days #28 cap 02/13/22 Metoprolol Succinate [Toprol Xl*] 12.5 mg PO BEDTIME 30 Days #15 tab 02/13/22 New Medications: Cephalexin [Keflex] 500 mg PO Q6HR 7 Days #28 cap Metoprolol Succinate [Toprol Xl*] 12.5 mg PO BEDTIME 30 Days #15 tab Physician Discharge Instructions: PROBLEM: (list out Acute Problems for the Current visit) UTI / weakness / Near syncope GOAL: Clear understanding of disease process INSTRUCTIONS: Patient presented with low blood pressure, and diaphoresis with change in position. She responded well and symptoms improved with IV fluids and decreasing her metoprolol dose to 12.5mg from 25mg. Cardiology was consulted, recommended continue felcainide, and metoprolol at 12.5mg, echocardiogram was unchanged compared to most recent.. She was noted to have increased heart rate with orthostatics / change in p osition, which improved with hydration. Suspected autonomic dysfunction exacerbated by medications and dehydration. PT was consulted, patient ambulated in the hallways, but would get short of breath and fatigued. Recommend continued PT at her assisted living facility. Cardiology discussed with patient to follow up in office, to have further discussions of possible atrial appendage closer. Patient initially had 1/4 blood cultures growing staph hominis, which later resulted with 2 of 4 blood cultures. Her urine was partially concerning for UTI, however patient denied any fever, no UTI symptoms. She was monitored off antibiotics, and repeat blood culture obtained on 02/12. She remained afebrile. 2/4 blood cultures on presentation and repeat blood cultures from 02/12 were without growth - off antibiotics. ID was consulted, empirically started on rocephin for possible UTI, urine culture grew 2+ gram negative rods and mixed chapin. Patient is discharged with 1 week total of antibiotics, Keflex per ID recommendations. Discussed unlikely to be having endocarditis, afebrile and negative blood cultures off antibiotics, and only 2/4 initial cultures positive. Follow up: Cardiology in ~2 weeks Diet: HH Activity: as tolerated Follow up with a Chief Creative Officer of your choice: KENZIE HOLT, ALEXANDER Calles [address] [place] [phone] MALKA HOLT, JOSH [address] [place] [phone] Followup: Jerry Torres MD [Primary Care Provider] - Time spent managing pt's care (in minutes): 45
== END 2022-02-13 15:09 | disposition home health service (06) | DRG 312 ==
LOC: ER 14:43 → OBSVTOIN 18:45 → ERHOLD 18:45 → 2ND 20:14
PROVIDERS: ADMIT Hospitalist; ATTEND Hospitalist
DX: I95.2 Hypotension due to drugs (principal); N39.0 Urinary tract infection, site not specified; E86.0 Dehydration; J44.9 Chronic obstructive pulmonary disease, unspecified; K21.9 Gastro-esophageal reflux disease without esophagitis; M79.7 Fibromyalgia; E78.5 Hyperlipidemia, unspecified; I10 Essential (primary) hypertension; E03.9 Hypothyroidism, unspecified; I48.0 Paroxysmal atrial fibrillation; T50.905A Adverse effect of unspecified drugs, medicaments and biological substances, initial encounter; R00.1 Bradycardia, unspecified; Z88.0 Allergy status to penicillin; Z85.3 Personal history of malignant neoplasm of breast; Z88.1 Allergy status to other antibiotic agents; Z88.8 Allergy status to other drugs, medicaments and biological substances; Z90.49 Acquired absence of other specified parts of digestive tract; Z90.12 Acquired absence of left breast and nipple; Z79.01 Long term (current) use of anticoagulants; Z91.018 Allergy to other foods; Z90.710 Acquired absence of both cervix and uterus; Z79.899 Other long term (current) drug therapy; Z79.890 Hormone replacement therapy; Z86.711 Personal history of pulmonary embolism; Z87.891 Personal history of nicotine dependence; Z20.822 Contact with and (suspected) exposure to COVID-19
CPT/HCPCS: 36415; 71045; 80048; 81003; 81015; 83605; 83735; 83880; 84439; 84443; 84484; 85025; 85610; 87040; 87077; 87086; 87088; 87186; 87205; 87804; 93005; 93306; 97116; 97161; 97530; 99285; J0696; J1650; J3475; J7040; J7120; U0003

== ENCOUNTER 2022-04-02 17:27 | Emergency (ER) | payer OTHER ==
--- OUTSIDE RECORDS SUMMARY | 2022-04-02 17:33 | XMS REPORT | Continuity of Care Document ---
:1940 Author Organization [facility] t Address [address] [place] [address] Care Team Providers Name Role Phone Garrett Dougherty MD Primary Care Physician Jerry Torres Attending Clinician Unavailable Amadou Linda Attending Clinician Unavailable [id number] Attending Clinician Unavailable Chin Pat Attending Clinician Doctor Unassigned, [place] Attending Clinician Unavailable Jonathon Batista Attending Clinician LAURA MANCILLA Attending Clinician Unavailable Laura Mancilla MD Attending Clinician Renan Canela MD Attending Clinician Garrett Dougherty V Admitting Clinician Unavailable [id number] Admitting Clinician Unavailable Payers Payer Name Policy Type Policy Number Effective Date Expiration Date S ource Problems Condition Condition Condition Status Onset Resolution Last Treating Co mments Source Name Details Category Date Date Treatment Clinician Date At risk At risk Problem Active 2022-03-28 Me moria for falls for falls - 13:42:50 l (finding) (finding) 00:00: Herm quynh Active 00 08/19/2016 Problem 03/28/2022 [facility] Hallucinat Hallucina Problem Active 2022-03-28 Memoria ions tions 5- 13:42:50 l (finding) (finding) 00:00: Herm quynh Active 00 08/19/2016 Problem 03/28/2022 [facility] Morbid Morbid Disease Active 2015-04 Univers obesity [...] Branch 40.0-49.9 40.0-49.9 Paresthesi Paresthes Problem Active 2022-03-28 Memoria a ia 4-20 13:42:50 l (finding) (finding) 00:00: Herm quynh Active 00 08/08/2015 Problem 03/28/2022 [facility] Essential Problem Active 2014-042022-03-28 Me charles hypertensi Essential 2-16 13:42:50 l on hypertensi 00:00: Chucho harris (disorder) on 00 (disorder) Active 04/04/2015 Problem 03/28/2022 [facility] Essential Essential Problem Active 2014-042022-03-28 Memoria tremor tremor 2-16 13:42:50 l (disorder) (disorder) 00:00: Alex romero Active 00 04/04/2015 Problem 03/28/2022 [facility] [id number] Status Problem Common post total Spirit replacemen - [facility] t of right [facility] [id number] Pain, Problem Commo n [id number] joint, Spirit shoulder, - [facility] right [facility] [id number] Pain, Problem Commo n [id number] joint, Spirit ankle, - [facility] right [facility] [id number] Closed Problem Common Colles' Spirit fracture - [facility] of left [facility] [id number] Status Problem Commo n 105 post left Spirit knee - [facility] replacemen [facility] [id number] Closed Problem Common displaced Spirit fracture - [facility] of lateral [facility] [id number] Acute pain Problem Com mon of right Spirit shoulder - [facility] Carpal Carpal Problem Active 2022-03-28 Johan manish tunnel tunnel 13:42:50 l syndrome syndrome Chucho n (disorder) (disorder) Active Problem 03/28/2022 [facility] Dementia Dementia Problem Active 2022-03-28 Memoria (disorder) (disorder) 13:42:50 l Active [place] Problem 03/28/2022 [facility] Gout Gout Problem Active 2022-03-28 Memor ia (disorder) (disorder) 13:42:50 l Active [place] Problem 03/28/2022 [facility] Hyperlipid Hyperlipi Problem Active 2022-03-28 Memoria emia demia 13:42:50 l (disorder) (disorder) He rmann Active Problem 03/28/2022 [facility] Depressive Problem Active 2022-03-28 M emoria disorder Depressive 13:42:50 l (disorder) disorder Herm quynh (disorder) Active Problem 03/28/2022 [facility] Fibromyalg Fibromyal Problem Active 2022-03-28 Memoria ia amanda 13:42:50 l (disorder) (disorder) He rmann Active Problem 03/28/2022 [facility] Concussion Concussio Problem Active 2022-03-28 Memoria injury of n injury 13:42:50 l body of body [place] structure structure (disorder) (disorder) Active Problem 03/28/2022 [facility] Polymyalgi Polymyalg Problem Active 2022-03-28 Memoria a ia 13:42:50 l rheumatica rheumatica He rmann (disorder) (disorder) Active Problem 03/28/2022 [facility] Recurrent Problem Active 2022-03-28 Me moria falls Recurrent 13:42:50 l (finding) falls [place] (finding) Active Problem 03/28/2022 [facility] Transient Transient Problem Active 2022-03-28 Memoria ischemic ischemic 13:42:50 l attack attack [place] (disorder) (disorder) Active Problem 03/28/2022 [facility] Syncope Syncope Problem Active 2022-03-28 Me moria (disorder) (disorder) 13:42:50 l Active [place] Problem 03/28/2022 [facility] Headache Headache Problem Active 2022-03-28 Memoria (finding) (finding) 13:42:50 l Active [place] Problem 03/28/2022 [facility] Tremor Tremor Problem Resolve 2021-09-27 2021-09-27 Memoria (finding) (finding) d - 04:45:19 04:45:19 l Resolved 00:00: [place] 08/19/2016 00 Problem 09/27/2021 [facility] Amnesia Amnesia Problem Resolve 2014-042021-09-27 2021-09-27 Memoria (finding) (finding) d - 04:45:19 04:45:19 l Resolved 00:00: [place] 04/04/2015 00 Problem 09/27/2021 [facility] Allergies, Adverse Reactions, Alerts Allergy Allergy Status Severity Reaction(s) Onset Inactive Treating Comm ents Source Name Type Date Date Clinician Penicill Propensi Active Unknown 2020-0 Metho di [...] l s to drug Clindamy Propensi Active Rash 2015-04 Univer s [...] l ics) s Branch sulfa sulfa Active Memoria drugs drugs l [place] penicill penicill Active Memori a ins ins l [place] 6296 Drug Active Unknown Common allergy [facility] clindamy clindamy Active Unknown Commo n jose jose [facility] penicill penicill Active Unknown Commo n in G in G [facility] Family History Family Member Diagnosis Comments Start Date Stop Date Source Natural mother Asthma [facility] Natural father Diabetes [facility] Natural father Heart disease [facility] Natural father Hypertension [facility] Social History Social Habit Start Date Stop Date Quantity Comments Source History of Tobacco Common [facility] - Use [facility] History SDLA Sabianism Alcohol Std Drinks Hospit al History SDLA Sabianism Alcohol Binge [facility] Social History 2022-03-25 2022-03-25 [facility] jesus 22:13:19 22:13:19 Exposure to 2021-06-24 2021-07-24 Not sure University SARS-CoV-2 (event) 00:00:00 14:26:00 [facility] Cigarettes smoked 2019-10-18 2019-10-[address] current (pack per 00:00:00 00:00:00 Hospita l day) - Reported Cigarette 2019-10-18 2019-10-18 Sabianism pack-years 00:00:00 00:00:00 Hospital Alcohol intake 2019-10-18 2019-10-18 Lifetime Sabianism 00:00:00 00:00:00 non-drinker Hospital (finding) History SDOH 2019-10-18 2019-10-18 1 Sabianism Alcohol Frequency 00:00:00 00:00:00 Hospita l Tobacco use and 2019-10-18 2019-10-18 Smokeless Sabianism exposure 00:00:00 00:00:00 tobacco non-user Hospital Smoking Status Start Date Stop Date Source Tobacco smoking status 2022-03-25 21:14:10 2022-03-25 21:14:10 M angeline Arzate Never Smoker Common [facility] nter Medications Ordered Filled Start Stop Current Ordering Indication Dosage Frequency Signature Comments Components Source Medication Medication Date Date Medication? Clinician (SIG) Name Name Bupivicaine Bupivicaine 0 No 2.5mg Common Howard Howard 8-10 Spirit 00:00: - [facility] Kenalog Kenalog 0 No 40mg Common (Triamcinol (Triamcinol 8-10 S pirit one) one) 00:00: - [facility] Bupivicaine Bupivicaine 2021-0 No 2.5mg Common Howard Howard 8-10 Spirit 00:00: - [facility] Kenalog Kenalog 2021-0 No 40mg Common (Triamcinol (Triamcinol 8-10 S pirit one) one) 00:00: - [facility] Bupivicaine Bupivicaine 2021-0 No 2.5mg Common Howard Howard 8-10 Spirit 00:00: - [facility] Kenalog Kenalog 2021-0 No 40mg Common (Triamcinol (Triamcinol 8-10 S pirit one) one) 00:00: - [facility] topiramate 2021-0 Yes 100 mg = 1 M emoria 100 mg oral 5-19 tab, PO, l tablet 23:43: BID, # 180 Ela nn 00 tab, 2 Refill(s), Pharmacy: [facility], 154.94, cm, 11/27/20 15:33:00 CDT, Height, 93.75, kg, 11/27/20 15:33:00 CDT, Weight topiramate 2021-0 Yes 100 mg = 1 M emoria 100 mg oral 5-19 tab, PO, l tablet 23:43: BID, # 180 Ela nn 00 tab, 2 Refill(s), Pharmacy: [facility], 154.94, cm, 11/27/20 15:33:00 CDT, Height, 93.75, kg, 11/27/20 15:33:00 CDT, Weight memantine Yes = 1 tab, Johan manish 10 mg oral 5-19 PO, BID, # l tablet 23:42: 180 tab, 2 Ela nn 00 Refill(s), Pharmacy: [facility], 154.94, cm, 11/27/20 15:33:00 CDT, Height, 93.75, kg, 11/27/20 15:33:00 CDT, Weight memantine Yes = 1 tab, Johan manish 10 mg oral 5-19 PO, BID, # l tablet 23:42: 180 tab, 2 Ela nn 00 Refill(s), Pharmacy: [facility], 154.94, cm, 11/27/20 15:33:00 CDT, Height, 93.75, kg, 11/27/20 15:33:00 CDT, Weight Flecainide No 50 mg = 1 Me moria Acetate 50 1-04 tab, PO, l MG Oral 22:34: Q12H, # [place] Tablet 00 180 tab, 0 [Tambocor] Refill(s) Flecainide No 50 mg = 1 Me moria Acetate 50 1-04 tab, PO, l MG Oral 22:34: Q12H, # [place] Tablet 00 180 tab, 0 [Tambocor] Refill(s) apixaban 5 Yes 5 mg, PO, Me moria MG Oral 1-04 Q12H, tab, l Tablet 22:33: 0 [place] [Eliquis] 00 Refill(s) Furosemide Yes 20 mg = 1 Me moria 20 MG Oral 1-04 tab, PO, l Tablet 22:33: Daily, # [place] [Lasix] 00 30 tab, 0 Refill(s) quetiapine Yes 100 mg = 1 M emoria 100 MG Oral 1-04 tab, PO, l Tablet 22:33: Daily, 0 [place] [Seroquel] 00 Refill(s) apixaban 5 Yes 5 mg, PO, Me moria MG Oral 1-04 Q12H, tab, l Tablet 22:33: 0 [place] [Eliquis] 00 Refill(s) Furosemide Yes 20 mg = 1 Me moria 20 MG Oral 1-04 tab, PO, l Tablet 22:33: Daily, # [place] [Lasix] 00 30 tab, 0 Refill(s) quetiapine Yes 100 mg = 1 M emoria 100 MG Oral 1-04 tab, PO, l Tablet 22:33: Daily, 0 [place] [Seroquel] 00 Refill(s) Eliquis 5 Yes 5 mg, PO, Mem oria mg oral 1-04 Q12H, tab, l tablet 22:33: 0 [place] 00 Refill(s) SEROquel Yes See Memoria 100 mg oral 04 Instructio l tablet 22:33: ns, 04/23 [place] 00 tab PO Daily, 0 Refill(s) Levofloxaci Yes See Memori a n 750 MG 1-04 Instructio l Oral Tablet 22:32: ns, 2 tab H ermann [Levaquin] 00 PO Q24H, 0 Refill(s) Levofloxaci Yes See Memori a n [...] Height, 93.75, kg, 11/27/20 15:33:00 CDT, Weight topiramate 2020-04 Yes 100 mg = 1 [...] Ela nn 00 90 tab, 1 Refill(s) montelukast 2020-04 Yes 10 mg = 1 M emoria 10 mg oral 2-10 tab, PO, l tablet 17:27: Bedtime, # Ela nn 00 90 tab, 1 Refill(s) Trelegy 2020-04 Yes = 1 Memoria Ellipta 100 2-10 inhalation l mcg-62.5 17:26: , PO, [place] mcg-25 00 Daily, # 1 mcg/inh ea, 0 inhalation Refill(s) powder levothyroxi 2020-04 Yes 75 Memori a ne 75 mcg 2-10 microgram l (0.075 mg) 17:26: = 1 tab, Her cook oral tablet 00 PO, Daily, # 90 tab, 1 Refill(s) Trelegy 2020-04 Yes = 1 Memoria Ellipta 100 2-10 inhalation l mcg-62.5 17:26: , PO, [place] mcg-25 00 Daily, # 1 mcg/inh ea, 0 inhalation Refill(s) powder levothyroxi 2020-04 Yes 75 Memori a ne 75 mcg 2-10 microgram l (0.075 mg) 17:26: = 1 tab, Her cook oral tablet 00 PO, Daily, # 90 tab, 1 Refill(s) flecainide 2020-04 Yes 50 mg = 1 Me moria 50 mg oral 2-10 tab, PO, l tablet 17:25: Q12H, # [place] 00 180 tab, 3 Refill(s) flecainide 2020-04 Yes 50 mg = 1 Me moria 50 mg oral 2-10 tab, PO, l tablet 17:25: Q12H, # [place] 00 180 tab, 3 Refill(s) buPROPion Yes Univers XL 150 mg 8-26 ity of 24 hr 00:00: [place] tablet 00 Medical Branch buPROPion Yes [facility] XL 150 mg 8-26 ity of 24 hr 00:00: [place] tablet [facility] Branch buPROPion Yes Univers XL 150 mg 8-26 ity of 24 hr 00:00: [place] tablet 00 Medical Branch buPROPion 0 Yes Univers XL 150 mg 8-26 ity of 24 hr 00:00: [place] tablet 00 Medical Branch buPROPion 0 Yes Univers XL 150 mg 8-26 ity of 24 hr 00:00: [place] tablet 00 Medical Branch ELIQUIS 5 Yes 5mg Take 5 mg Uni vers mg tablet 8-22 by mouth 2 ity of 00:00: (two) [place] 00 times Medical daily. Branch benzonatate Yes TAKE 1 Univ ers 100 mg 8-22 CAPSULE ity of capsule 00:00: (100 MG TOTAL) BY Medical MOUTH 3 Branch (THREE) TIMES DAILY NEEDED FOR COUGH FOR UP TO 7 DAYS. ELIQUIS 5 Yes 5mg Take 5 mg Uni vers mg tablet 8-22 by mouth 2 ity of 00:00: (two) [place] 00 times Medical daily. Branch benzonatate Yes TAKE 1 Univ ers 100 mg 8-22 CAPSULE ity of capsule 00:00: (100 MG TOTAL) BY Medical MOUTH 3 Branch (THREE) TIMES DAILY NEEDED FOR COUGH FOR UP TO 7 DAYS. ELIQUIS 5 Yes 5mg Take 5 mg Uni vers mg tablet 8-22 by mouth 2 ity of 00:00: (two) [place] 00 times Medical daily. Branch benzonatate Yes TAKE 1 Univ ers 100 mg 8-22 CAPSULE ity of capsule 00:00: (100 MG TOTAL) BY Medical MOUTH 3 Branch (THREE) [...] FOR UP TO 7 DAYS. ELIQUIS 5 2020- Yes 5mg Take 5 mg Uni vers mg tablet 8-22 by mouth 2 ity of 00:00: (two) [place] 00 times Medical daily. Branch benzonatate Yes TAKE 1 Univ ers 100 mg 8-22 CAPSULE ity of capsule 00:00: (100 MG TOTAL) BY Medical MOUTH 3 Branch (THREE) TIMES DAILY NEEDED FOR COUGH FOR UP TO 7 DAYS. ALPRAZolam 0 Yes Univers 0.25 mg 8-02 ity of tablet 00:00: Medical Branch ALPRAZolam 0 Yes Univers 0.25 mg 8-02 ity of tablet 00:00: Medical Branch ALPRAZolam 0 Yes Univers 0.25 mg 8-02 ity of tablet 00:00: Medical Branch ALPRAZolam 0 Yes Univers 0.25 mg 8-02 ity of tablet 00:00: Medical Branch ALPRAZolam 0 Yes Univers 0.25 mg 8-02 ity of tablet 00:00: Medical Branch clopidogrel 0 Yes 75 mg = 1 M emoria 75 MG Oral 5-10 tab, PO, l Tablet 19:06: Daily, Jeovanny Arzate [Plavix] 00 30 tab, 3 Refill(s), Pharmacy: [facility], 160.02, cm, 08/27/20 13:30:00 CDT, Height, 93.636, kg, 08/27/20 13:30:00 CDT, Weight clopidogrel Yes 75 mg = 1 M emoria 75 MG Oral 5-10 tab, PO, l Tablet 19:06: Daily, Jeovanny Arzate [Plavix] 00 30 tab, 3 Refill(s), Pharmacy: [facility], 160.02, cm, 08/27/20 13:30:00 CDT, Height, 93.636, kg, 08/27/20 13:30:00 CDT, Weight donepezil 0 Yes 10 mg = 1 Mem oria 10 mg oral 4-26 tab, PO, l tablet 17:32: Daily, Jeovanny Arzate 00 90 tab, 1 Refill(s), Pharmacy: [id number], 157.48, cm, 06/26/20 14:30:00 [employer], Height, 92.727, kg, 07/23/20 13:26:00 CDT, Weight donepezil 2020-0 Yes 10 mg = 1 Mem oria 10 mg oral 3-09 tab, PO, l tablet 20:52: Bedtime, # Ela nn 00 90 tab, 2 Refill(s), 157.48, cm, 06/26/20 14:30:00 [employer], Height, 91.818, kg, 06/26/20 14:30:00 [employer], Weight memantine 2020-0 Yes = 1 tab, Johan manish 10 mg oral 3-09 PO, BID, # l tablet 20:52: 180 tab, 2 Ela nn 00 Refill(s), 157.48, cm, 06/26/20 14:30:00 [employer], Height, 91.818, kg, 06/26/20 14:30:00 [employer], Weight topiramate 2020-0 Yes 200 mg = 1 M emoria 200 mg oral 3-09 tab, PO, l tablet 20:52: BID, # 180 Ela nn 00 tab, 1 Refill(s), 157.48, cm, 06/26/20 14:30:00 [employer], Height, 91.818, kg, 06/26/20 14:30:00 [employer], Weight donepezil 2020-0 Yes 10 mg = 1 Mem oria 10 mg oral 3-09 tab, PO, l tablet 20:52: Bedtime, # Ela nn 00 90 tab, 2 Refill(s), 157.48, cm, 06/26/20 14:30:00 [employer], Height, 91.818, kg, 06/26/20 14:30:00 [employer], Weight memantine 2020-0 Yes = 1 tab, Johan manish 10 mg oral 3-09 PO, BID, # l tablet 20:52: 180 tab, 2 Ela nn 00 Refill(s), 157.48, cm, 06/26/20 14:30:00 [employer], Height, 91.818, kg, 06/26/20 14:30:00 [employer], Weight topiramate 2020-0 Yes 200 mg = 1 M emoria 200 mg oral 3-09 tab, PO, l tablet 20:52: BID, # 180 Ela nn 00 tab, 1 Refill(s), 157.48, cm, 06/26/20 14:30:00 [employer], Height, 91.818, kg, 06/26/20 14:30:00 [employer], Weight Zolpidem 0 Yes 10 mg = 1 Johan manish tartrate 10 3-09 tab, PO, l MG Oral 20:41: Bedtime, Chucho n Tablet 00 PRN for [Ambien] sleep, 0 Refill(s) Zolpidem 0 Yes 10 mg = 1 Johan manish tartrate 10 3-09 tab, PO, l MG Oral 20:41: Bedtime, Chucho n Tablet 00 PRN for [Ambien] sleep, 0 Refill(s) topiramate 2019-04 Yes 200 mg = 1 M emoria 200 mg oral 2-09 tab, PO, l tablet 20:49: BID, # 180 Ela nn 00 tab, 1 Refill(s), Pharmacy: [id number], 160.02, cm, 03/28/20 14:19:00 [employer], Height, 93.636, kg, 03/28/20 14:19:00 [employer], Weight topiramate 2019-04 Yes 200 mg = 1 M emoria 200 mg oral 2-09 tab, PO, l tablet 20:49: BID, # 180 Ela nn 00 tab, 1 Refill(s), Pharmacy: [id number], 160.02, cm, 03/28/20 14:19:00 [employer], Height, 93.636, kg, 03/28/20 14:19:00 [employer], Weight donepezil 2019-04 Yes 10 mg = 1 Mem oria 10 mg oral 1-09 tab, PO, l tablet 21:19: Bedtime, # Ela nn 00 90 tab, 2 Refill(s), Pharmacy: [id number], 160.02, cm, 02/27/20 14:33:00 [employer], Height, 93.636, kg, 02/27/20 14:33:00 [employer], Weight donepezil 2019-04 Yes 10 mg = 1 Mem oria 10 mg oral 1-09 tab, PO, l tablet 21:19: Bedtime, # Ela nn 00 90 tab, 2 Refill(s), Pharmacy: [facility] #[id number], 160.02, cm, 02/27/20 14:33:00 [employer], Height, 93.636, kg, 02/27/20 14:33:00 [employer], Weight tizanidine 2020-0 Yes 4 mg = 1 Mem oria 4 mg oral 8-07 tab, PO, l tablet 18:57: Daily, 0 [place] 00 Refill(s) [place] 2020-0 Yes 0 Memoria 8-07 Refill(s) l 18:57: [place] 00 [place] 2020-0 Yes 0 Memoria 8-07 Refill(s) l 18:57: [place] 00 tizanidine 2020-0 Yes 4 mg = 1 Mem oria 4 mg oral 8-07 tab, PO, l tablet 18:57: Daily, 0 [place] 00 Refill(s) predniSONE 2020-0 Yes 5 mg = 1 Mem oria 5 mg oral 8-06 tab, PO, l tablet 20:23: Daily, # [place] 00 30 tab, 2 Refill(s), Pharmacy: [facility] #[id number], 160.02, cm, 11/24/19 14:46:00 CDT, Height, 95.455, kg, 11/24/19 14:46:00 CDT, Weight predniSONE 2020-0 Yes 5 mg = 1 Mem oria 5 mg oral 8-06 tab, PO, l tablet 20:23: Daily, # [place] 00 30 tab, 2 Refill(s), Pharmacy: [id number], 160.02, cm, 11/24/19 14:46:00 CDT, Height, 95.455, kg, 11/24/19 14:46:00 CDT, Weight predniSONE 2020-0 Yes 5 mg = 1 Mem oria 5 mg oral 6-03 tab, PO, l tablet 19:17: Daily, # [place] 00 30 tab, 2 Refill(s), Pharmacy: [id number] predniSONE 2020-0 Yes 5 mg = 1 Mem oria 5 mg oral 6-03 tab, PO, l tablet 19:17: Daily, # [place] 00 30 tab, 2 Refill(s), Pharmacy: [id number] Acetaminoph 2020-0 Yes 1 tab, PO, Memoria en 325 MG / 6-03 Q8H, PRN l Hydrocodone 18:41: Pain, # 90 [place] Bitartrate 00 tab, 0 7.5 MG Oral Refill(s) Tablet [[place] 7.5/325] methocarbam 2020-0 Yes 750 mg = 1 Memoria ol 750 mg 6-03 tab, PO, l oral tablet 18:41: Q8H, PRN He rmann 00 Spasms, # 60 tab, 0 Refill(s) predniSONE 2019-0 No 10 mg = 1 Me moria 10 mg oral 6-03 tab, PO, l tablet 18:41: Daily, 0 [place] 00 Refill(s) Acetaminoph 2020-0 Yes 1 tab, PO, Memoria en 325 MG / 6-03 Q8H, PRN l Hydrocodone 18:41: Pain, # 90 [place] Bitartrate 00 tab, 0 7.5 MG Oral Refill(s) Tablet [[place] 7.5/325] methocarbam 2020-0 Yes 750 mg = 1 Memoria ol 750 mg 6-03 tab, PO, l oral tablet 18:41: Q8H, PRN He rmann 00 Spasms, # 60 tab, 0 Refill(s) predniSONE 2019-0 No 10 mg = 1 Me moria 10 mg oral 6-03 tab, PO, l tablet 18:41: Daily, 0 [place] 00 Refill(s) 24 HR 2019-0 Yes 150 mg = 1 Memori a Bupropion 3-16 tab, PO, l Hydrochlori 15:38: Daily, # He rmann de 150 MG 00 30 tab, 2 Extended Refill(s), Release Pharmacy: [facility]Well[facility] #[id number] ] 24 HR 2019-0 Yes 150 mg = 1 Memori a Bupropion 3-16 tab, PO, l Hydrochlori 15:38: Daily, # He rmann de 150 MG 00 30 tab, 2 Extended Refill(s), Release Pharmacy: [facility] [Well[facility] #[id number] ] Wellbutrin 2019-0 Yes 300 mg = 2 M emoria XL 150 3-16 tab, PO, l mg/24 hours 15:38: Daily, # He rmann oral 00 60 tab, 2 tablet, Refill(s), extended Pharmacy: release [id number] predniSONE 2019-0 Yes 10 mg = 1 Me moria 10 mg oral 3-03 tab, PO, l tablet 21:30: Daily, X [place] 00 30 day, # 30 tab, 1 Refill(s), Pharmacy: [id number] predniSONE 2020-0 Yes 10 mg = 1 Me moria 10 mg oral 3-03 tab, PO, l tablet 21:30: Daily, X [place] 00 30 day, # 30 tab, 1 Refill(s), Pharmacy: [id number] predniSONE 2020-0 No 20 mg = 1 Me moria 20 mg oral 3-03 tab, PO, l tablet 20:38: BID, [place] 00 Quantity sufficient , X 30 day, # 60 tab, 1 Refill(s), Pharmacy: [id number] predniSONE 2020-0 No 20 mg = 1 Me moria 20 mg oral 3-03 tab, PO, l tablet 20:38: BID, [place] 00 Quantity sufficient , X 30 day, # 60 tab, 1 Refill(s), Pharmacy: [id number] predniSONE 2020-0 No 20 mg = 1 Me moria 20 mg oral 3-03 tab, PO, l tablet 20:31: Daily, [place] 00 Quantity sufficient , X 30 day, # 30 tab, 1 Refill(s), Pharmacy: [id number] predniSONE 2020-0 No 20 mg = 1 Me moria 20 mg oral 3-03 tab, PO, l tablet 20:31: Daily, [place] 00 Quantity sufficient , X 30 day, # 30 tab, 1 Refill(s), Pharmacy: [facility] #[id number] Prednisone 2020-0 No 50 mg, PO, M emoria 3-03 Daily, l 20:08: Quantity [place] 00 sufficient , 0 Refill(s) Prednisone 2020-0 No 50 mg, PO, M emoria 3-03 Daily, l 20:08: Quantity [place] 00 sufficient , 0 Refill(s) donepezil 5 2020-0 Yes = 1 tab, Me moria mg oral 2-12 PO, l tablet 17:10: Bedtime, # Ela nn 00 90 tab, 3 Refill(s), Pharmacy: [facility] #[id number] donepezil 5 2020-0 Yes = 1 tab, Me moria mg oral 2-12 PO, l tablet 17:10: Bedtime, # Ela nn 00 90 tab, 3 Refill(s), [facility]acy: [id number] spironolact 2018-04 Yes 25 mg = 1 M emoria one 25 mg 2-03 tab, PO, l oral tablet 20:03: BID, 0 Herm quynh 00 Refill(s) sucralfate 2018-04 Yes 1 gm = 1 Mem oria 1 g oral 2-03 tab, PO, l tablet 20:03: Daily, 0 [place] 00 Refill(s) 24 HR 2018-04 Yes 150 mg = 1 Memori a Bupropion 2-03 tab, PO, l Hydrochlori 20:03: Q24H, 0 Her cook de 150 MG 00 Refill(s) Extended Release Tablet spironolact 2018-04 Yes 25 mg = 1 M emoria one 25 mg 2-03 tab, PO, l oral tablet 20:03: BID, 0 Herm quynh 00 Refill(s) sucralfate 2018-04 Yes 1 gm = 1 Mem oria 1 g oral 2-03 tab, PO, l tablet 20:03: Daily, 0 [place] 00 Refill(s) 24 HR 2018-04 Yes 150 mg = 1 Memori a Bupropion 2-03 tab, PO, l Hydrochlori 20:03: Q24H, 0 Her cook de 150 MG 00 Refill(s) Extended Release Tablet 24 HR 2018-04 Yes 150 mg = 1 Memori a Bupropion 2-03 tab, PO, l Hydrochlori 19:59: Daily, # Alex rmann de 150 MG 00 30 tab, 1 Extended Refill(s), Release Pharmacy: [facility] #[id number] ] 24 HR 2018-04 Yes 150 mg = 1 Memori a Bupropion 2-03 tab, PO, l Hydrochlori 19:59: Daily, # He rmann de 150 MG 00 30 tab, 1 Extended Refill(s), Release Pharmacy: [facility]t [facility] [[facility] #[id number] ] Nitrofurant 2018-04 Yes 50 mg, PO, Memoria oin 2-03 Daily, # l 19:52: 14 cap, 0 [place] 00 Refill(s) Nitrofurant 2018-04 Yes 50 mg, PO, Memoria oin 2-03 Daily, # l 19:52: 14 cap, 0 [place] 00 Refill(s) Donepezil Yes 5 mg = 1 Johan manish hydrochlori 9-03 tab, PO, l de 5 MG 20:02: Bedtime, # Herm quynh Oral Tablet 00 30 tab, 3 [Aricept] Refill(s), [id number] Donepezil Yes 5 mg = 1 Johan manish hydrochlori 9-03 tab, PO, l de 5 MG 20:02: Bedtime, # Herm quynh Oral Tablet 00 30 tab, 3 [Aricept] Refill(s), [id number] potassium Yes 20 mEq = 1 Me moria chloride 20 9-03 tab, PO, l mEq oral 19:33: BID, # 10 Herm quynh tablet, 00 tab, 0 extended Refill(s) release potassium Yes 20 mEq = 1 Me moria chloride 20 9-03 tab, PO, l mEq oral 19:33: BID, # 10 Herm quynh tablet, 00 tab, 0 extended Refill(s) release gabapentin Yes 300 mg = 1 M emoria 300 mg oral 4-27 cap, PO, l capsule 19:12: TID, # 90 Ela nn 00 cap, 1 Refill(s) metoprolol Yes 50 mg = 1 Me moria tartrate 50 4-27 tab, PO, l mg oral 19:12: Daily, # Chucho n tablet 00 180 tab, 0 Refill(s) Cymbalta 60 Yes 60 mg = 1 M emoria mg oral 2-26 cap, PO, l delayed 20:23: BID, 0 Huey release 00 Refill(s) capsule Zocor 40 mg Yes 40 mg = 1 M emoria oral tablet 2-26 tab, PO, l 20:23: Bedtime, 0 Huey 00 Refill(s) calcium 2015-04 Yes 2{tbl} Take 2 Univer [...] FIDOBAC/ZAHIRA 2-28 tablet by ity of B [place] CON 11:30: mouth 2 [place] (ULTRA 04 [...] FIDOBAC/ZAHIRA 2-28 tablet by ity of B [place] CON 11:30: mouth 2 [place] (ULTRA 04 [...] FIDOBAC/ZAHIRA 2-28 tablet by ity of B [place] CON 11:30: mouth 2 [place] (ULTRA 04 [...] FIDOBAC/ZAHIRA 2-28 tablet by [place] CON 11:30: mouth 2 [place] (ULTRA 04 [...] FIDOBAC/ZAHIRA 2-28 tablet [place] [place] CON 11:30: mouth 2 [place] (ULTRA 04 (two) Medical RODOLFO PLUS times Branch ORAL) daily. Indication s: Ultimate Rodolfo Nitrofurant Nitrofurant No Nitrofuran oin Monohyd oin Monohyd toin Macro Macro Monohyd Macro Simvastatin Simvastatin No Simvastati n Mupirocin Mupirocin No Mupirocin Zanaflex Zanaflex No Zanaflex buPROPion buPROPion No buPROPion HCl ER (XL) HCl ER (XL) HCl ER (XL) Potassium Potassium No Potassium Chloride Chloride Chloride Nanda ER Nanda ER Nanda ER Gabapentin Gabapentin No Gabapentin Pantoprazol Pantoprazol No Pantoprazo e Sodium e Sodium le Sodium ALPRAZolam ALPRAZolam No ALPRAZolam Indapamide Indapamide No Indapamide QUEtiapine QUEtiapine No QUEtiapine Fumarate Fumarate Fumarate DULoxetine DULoxetine No DULoxetine HCl HCl HCl Ciprofloxac Ciprofloxac No Ciprofloxa in HCl in HCl jose HCl Memantine Memantine No Memantine HCl HCl HCl Estradiol Estradiol No Estradiol COUNTY COURT JUDGE Thyroid COUNTY COURT JUDGE Thyroid No COUNTY COURT JUDGE Thyroid Topiramate Topiramate No Topiramate Mupirocin Mupirocin No Mupirocin Pantoprazol Pantoprazol No Pantoprazo e Sodium e Sodium le Sodium QUEtiapine QUEtiapine No QUEtiapine Fumarate Fumarate Fumarate ALPRAZolam ALPRAZolam No ALPRAZolam Ciprofloxac Ciprofloxac No Ciprofloxa in HCl in HCl ojse HCl Meloxicam Meloxicam No Meloxicam Albuterol Albuterol No Albuterol traMADol traMADol No traMADol HCl HCl HCl buPROPion buPROPion No buPROPion HCl ER (XL) HCl ER (XL) HCl ER (XL) tiZANidine tiZANidine No tiZANidine HCl HCl HCl Simvastatin Simvastatin No Simvastati n Zanaflex Zanaflex No Zanaflex Nitrofurant Nitrofurant No Nitrofuran oin Monohyd oin Monohyd toin Macro Macro Monohyd Macro Zolpidem Zolpidem No Zolpidem Tartrate Tartrate Tartrate Memantine Memantine No Memantine HCl HCl HCl Metoprolol Metoprolol No Metoprolol Succinate Succinate Succinate ER ER ER Estradiol Estradiol No Estradiol [place] COURT JUDGE Thyroid COUNTY COURT JUDGE Thyroid No COUNTY COURT JUDGE Thyroid Gabapentin Gabapentin No Gabapentin Donepezil Donepezil No Donepezil HCl HCl HCl Topiramate Topiramate No Topiramate Indapamide Indapamide No Indapamide DULoxetine DULoxetine No DULoxetine HCl HCl HCl Potassium Potassium No Potassium Chloride Chloride Chloride Nanda ER Nanda ER Nanda ER HYDROcodone HYDROcodone No HYDROcodon -Acetaminop -Acetaminop e-Acetamin hen hen ophen traMADol traMADol No traMADol HCl HCl HCl Mupirocin Mupirocin No Mupirocin Pantoprazol Pantoprazol No Pantoprazo e Sodium e Sodium le Sodium QUEtiapine QUEtiapine No QUEtiapine Fumarate Fumarate Fumarate ALPRAZolam ALPRAZolam No ALPRAZolam Ciprofloxac Ciprofloxac No Ciprofloxa in HCl in HCl jose HCl Meloxicam Meloxicam No Meloxicam Albuterol Albuterol No Albuterol traMADol traMADol No traMADol HCl HCl HCl buPROPion buPROPion No buPROPion HCl ER (XL) HCl ER (XL) HCl ER (XL) tiZANidine tiZANidine No tiZANidine HCl HCl HCl Simvastatin Simvastatin No Simvastati n Zanaflex Zanaflex No Zanaflex Nitrofurant Nitrofurant No Nitrofuran oin Monohyd oin Monohyd toin Macro Macro Monohyd Macro Zolpidem Zolpidem No Zolpidem Tartrate Tartrate Tartrate Memantine Memantine No Memantine HCl HCl HCl Metoprolol Metoprolol No Metoprolol Succinate Succinate Succinate ER ER ER Estradiol Estradiol No Estradiol [place] COURT JUDGE Thyroid COUNTY COURT JUDGE Thyroid No COUNTY COURT JUDGE Thyroid Gabapentin Gabapentin No Gabapentin Donepezil Donepezil No Donepezil HCl HCl HCl Topiramate Topiramate No Topiramate Indapamide Indapamide No Indapamide DULoxetine DULoxetine No DULoxetine HCl HCl HCl Potassium Potassium No Potassium Chloride Chloride Chloride Nanda ER Nanda ER Nanda ER HYDROcodone HYDROcodone No HYDROcodon -Acetaminop -Acetaminop e-Acetamin hen [place] traMADol traMADol No traMADol HCl HCl HCl traMADol traMADol No traMADol HCl HCl HCl Potassium Potassium No Potassium Chloride Chloride Chloride Nanda ER Nanda ER Nanda ER traMADol traMADol No traMADol HCl HCl HCl DULoxetine DULoxetine No DULoxetine HCl HCl HCl Indapamide Indapamide No Indapamide Topiramate Topiramate No Topiramate Meloxicam Meloxicam No Meloxicam Memantine Memantine No Memantine HCl HCl HCl Zanaflex Zanaflex No Zanaflex Zolpidem Zolpidem No Zolpidem Tartrate Tartrate Tartrate Ciprofloxac Ciprofloxac No Ciprofloxa in HCl in HCl jose HCl Estradiol Estradiol No Estradiol ALPRAZolam ALPRAZolam No ALPRAZolam tiZANidine tiZANidine No tiZANidine HCl HCl HCl Mupirocin Mupirocin No Mupirocin Metoprolol Metoprolol No Metoprolol Succinate Succinate Succinate ER ER ER HYDROcodone HYDROcodone No HYDROcodon -Acetaminop -Acetaminop e-Acetamin hen hen ophen Simvastatin Simvastatin No Simvastati n Albuterol Albuterol No Albuterol Pantoprazol Pantoprazol No Pantoprazo e Sodium e Sodium le Sodium buPROPion buPROPion No buPROPion HCl ER (XL) HCl ER (XL) HCl ER (XL) Gabapentin Gabapentin No Gabapentin QUEtiapine QUEtiapine No QUEtiapine Fumarate Fumarate Fumarate Nitrofurant Nitrofurant No Nitrofuran oin Monohyd oin Monohyd toin Macro Macro Monohyd Macro Donepezil Donepezil No Donepezil HCl HCl HCl COUNTY COURT JUDGE Thyroid COUNTY COURT JUDGE Thyroid No COUNTY COURT JUDGE Thyroid Simvastatin Simvastatin No Simvastati n Indapamide Indapamide No Indapamide DULoxetine DULoxetine No DULoxetine HCl HCl HCl Nitrofurant Nitrofurant No Nitrofuran oin Monohyd oin Monohyd toin Macro Macro Monohyd Macro Memantine Memantine No Memantine HCl HCl HCl traMADol traMADol No traMADol HCl HCl HCl Topiramate Topiramate No Topiramate Potassium Potassium No Potassium Chloride Chloride Chloride Nanda ER Nanda ER Nanda ER Gabapentin Gabapentin No Gabapentin HYDROcodone HYDROcodone No HYDROcodon -Acetaminop -Acetaminop e-Acetamin hen hen ophen Metoprolol Metoprolol No Metoprolol Succinate Succinate Succinate ER ER ER traMADol traMADol No traMADol HCl HCl HCl buPROPion buPROPion No buPROPion HCl ER (XL) HCl ER (XL) HCl ER (XL) Donepezil Donepezil No Donepezil HCl HCl HCl ALPRAZolam ALPRAZolam No ALPRAZolam Zolpidem Zolpidem No Zolpidem Tartrate Tartrate Tartrate QUEtiapine QUEtiapine No QUEtiapine Fumarate Fumarate Fumarate Zanaflex Zanaflex No Zanaflex Pantoprazol Pantoprazol No Pantoprazo e Sodium e Sodium le Sodium Albuterol Albuterol No Albuterol tiZANidine tiZANidine No tiZANidine HCl HCl HCl Meloxicam Meloxicam No Meloxicam Ciprofloxac Ciprofloxac No Ciprofloxa in HCl in HCl jose HCl Mupirocin Mupirocin No Mupirocin Estradiol Estradiol No Estradiol COUNTY COURT JUDGE Thyroid COUNTY COURT JUDGE Thyroid No COUNTY COURT JUDGE Thyroid Meloxicam Meloxicam No Meloxicam tiZANidine tiZANidine No tiZANidine HCl HCl HCl Donepezil Donepezil No Donepezil HCl HCl HCl Albuterol Albuterol No Albuterol traMADol traMADol No traMADol HCl HCl HCl traMADol traMADol No traMADol HCl HCl HCl Metoprolol Metoprolol No Metoprolol Succinate Succinate Succinate ER ER ER HYDROcodone HYDROcodone No HYDROcodon -Acetaminop -Acetaminop e-Acetamin hen hen ophen Zolpidem Zolpidem No Zolpidem Tartrate Tartrate Tartrate Immunizations Ordered Filled Immunization Date Status Comments Sour e Immunization Name Name SARS-COV-2 COVID-19 2020-07-07 Completed [facility] of P[facility]ZER VACCINE 00:00:00 [facility] SARS-COV-2 COVID-19 2020-07-07 Completed Unive rsity of PFIZER VACCINE 00:00:00 [facility] SARS-COV-2 COVID-19 2020-07-07 Completed Unive rsity of PFIZER VACCINE 00:00:00 [facility] SARS-COV-2 COVID-19 2020-07-07 Completed Unive rsity of PFIZER VACCINE 00:00:00 [facility] SARS-COV-2 COVID-19 2020-07-07 Completed [facility]ive rs[facility] of PFIZER VACCINE 00:00:00 [facility] SARS-COV-2 COVID-19 2020-06-16 Completed Unive rsity of PFIZER VACCINE 00:00:00 [facility] SARS-COV-2 COVID-19 2020-06-16 Completed Unive rs[facility] of PFIZER VACCINE 00:00:00 [facility] SARS-COV-2 COVID-19 2020-06-16 Completed Unive rsity of PFIZER VACCINE 00:00:00 [facility] SARS-COV-2 COVID-19 2020-06-16 Completed Unive rsity of PFIZER VACCINE 00:00:00 [facility] SARS-COV-2 COVID-19 2020-06-16 Completed Unive rsity of PFIZER VACCINE 00:00:00 [facility] Vital Signs Vital Name Observation Time Observation Value Comments Source height 2022-02-20 11:00:00 63 [in_i] [facility] weight 2022-02-20 11:00:00 209 [lb_av] [facility] temperature 2022-02-20 11:00:00 96.9 [degF] [facility] bmi 2022-02-20 11:00:00 37.02 kg/m2 [facility] blood pressure 2022-02-20 11:00:00 122 mm[Hg] [facility] blood pressure 2022-02-20 11:00:00 78 mm[Hg] [facility] height 2021-11-27 13:00:00 63 [in_i] [facility] weight 2021-11-27 13:00:00 208 [lb_av] [facility] bmi 2021-11-27 13:00:00 36.84 kg/m2 [facility] blood pressure 2021-11-27 13:00:00 120 mm[Hg] [facility] blood pressure 2021-11-27 13:00:00 70 mm[Hg] [facility] height 2021-11-06 13:00:00 63 [in_i] [facility] weight 2021-11-06 13:00:00 208 [lb_av] [facility] temperature 2021-11-06 13:00:00 97.9 [degF] [facility] bmi 2021-11-06 13:00:00 36.84 kg/m2 [facility] blood pressure 2021-11-06 13:00:00 112 mm[Hg] [facility] blood pressure 2021-11-06 13:00:00 72 mm[Hg] [facility] height 2021-10-23 11:00:00 63 [in_i] [facility] weight 2021-10-23 11:00:00 208 [lb_av] [facility] bmi 2021-10-23 11:00:00 36.84 kg/m2 [facility] blood pressure 2021-10-23 11:00:00 112 mm[Hg] [facility] blood pressure 2021-10-23 11:00:00 72 mm[Hg] [facility] Systolic blood 2021-07-24 19:34:00 115 mm[Hg] [facility] Diastolic blood 2021-07-24 19:34:00 59 mm[Hg] Unive rsity of pressure [facility] Heart rate 2021-07-24 19:34:00 56 /min [facility] Body height 2021-07-24 19:34:00 160 cm [facility] Body weight 2021-07-24 19:34:00 102.513 kg [facility] BMI 2021-07-24 19:34:00 40.03 kg/m2 [facility] Systolic (mm Hg) 2022-03-25 21:08:00 [facility] Diastolic (mm Hg) 2022-03-25 21:08:00 [facility] Heart Rate 2022-03-25 21:08:00 [facility] Systolic (mm Hg) 2021-09-24 21:20:00 [facility] Diastolic (mm Hg) 2021-09-24 21:20:00 [facility] [place] Heart Rate 2021-09-24 21:20:00 [facility] Respitory Rate 2021-09-24 21:20:00 [facility] Systolic (mm Hg) 2021-04-23 22:09:00 [facility] [place] Diastolic (mm Hg) 2021-04-23 22:09:00 [facility] Heart Rate 2021-04-23 22:09:00 [facility] Respitory Rate 2021-04-23 22:09:00 [facility] Systolic (mm Hg) 2021-03-29 16:49:00 [facility] [place] Diastolic (mm Hg) 2021-03-29 16:49:00 [facility] [place] Heart Rate 2021-03-29 16:49:00 [facility] Respitory Rate 2021-03-29 16:49:00 [facility] [place] Systolic (mm Hg) 2020-11-27 20:24:00 [facility] Diastolic (mm Hg) 2020-11-27 20:24:00 [facility] Heart Rate 2020-11-27 20:24:00 [facility] Respitory Rate 2020-11-27 20:24:00 [facility] [place] Height 2020-11-27 20:24:00 154.94 cm [facility] Weight 2020-11-27 20:24:00 [facility] BMI Calculated 2020-11-27 20:24:00 [facility] Systolic (mm Hg) 2020-08-27 18:30:00 [facility] [place] Diastolic (mm Hg) 2020-08-27 18:30:00 [facility] [place] Heart Rate 2020-08-27 18:30:00 [facility] Respitory Rate 2020-08-27 18:30:00 [facility] Height 2020-08-27 18:30:00 160.02 cm [facility] Weight 2020-08-27 18:30:00 [facility] BMI Calculated 2020-08-27 18:30:00 [facility] Systolic (mm Hg) 2020-07-23 18:26:00 [facility] [place] Heart Rate 2020-07-23 18:26:00 [facility] Respitory Rate 2020-07-23 18:26:00 [facility] Weight 2020-07-23 18:26:00 [facility] Systolic (mm Hg) 2020-06-26 20:30:00 [facility] [place] Diastolic (mm Hg) 2020-06-26 20:30:00 [facility] Heart Rate 2020-06-26 20:30:00 [facility] Respitory Rate 2020-06-26 20:30:00 [facility] [place] Height 2020-06-26 20:30:00 157.48 cm [facility] Weight 2020-06-26 20:30:00 [facility] BMI Calculated 2020-06-26 20:30:00 [facility] [place] Systolic (mm Hg) 2020-03-28 20:19:00 [facility] [place] Diastolic (mm Hg) 2020-03-28 20:19:00 [facility] Heart Rate 2020-03-28 20:19:00 [facility] Respitory Rate 2020-03-28 20:19:00 [facility] [place] Height 2020-03-28 20:19:00 160.02 cm [facility] Weight 2020-03-28 20:19:00 [facility] BMI Calculated 2020-03-28 20:19:00 [facility] Systolic (mm Hg) 2020-02-27 20:33:00 [facility] [place] Diastolic (mm Hg) 2020-02-27 20:33:00 [facility] [place] Heart Rate 2020-02-27 20:33:00 [facility] Respitory Rate 2020-02-27 20:33:00 [facility] [place] Height 2020-02-27 20:33:00 160.02 cm [facility] Weight 2020-02-27 20:33:00 [facility] BMI Calculated 2020-02-27 20:33:00 [facility] Systolic (mm Hg) 2020-01-05 20:09:00 [facility] [place] Diastolic (mm Hg) 2020-01-05 20:09:00 [facility] Heart Rate 2020-01-05 20:09:00 [facility] Respitory Rate 2020-01-05 20:09:00 [facility] Height 2020-01-05 20:09:00 160.02 cm [facility] Weight 2020-01-05 20:09:00 [facility] BMI Calculated 2020-01-05 20:09:00 [facility] Systolic (mm Hg) 2019-11-24 19:46:00 [facility] [place] Diastolic (mm Hg) 2019-11-24 19:46:00 [facility] [place] Heart Rate 2019-11-24 19:46:00 [facility] Respitory Rate 2019-11-24 19:46:00 [facility] Height 2019-11-24 19:46:00 160.02 cm [facility] Weight 2019-11-24 19:46:00 [facility] BMI Calculated 2019-11-24 19:46:00 [facility] Systolic (mm Hg) 2019-09-21 18:37:00 [facility] [place] Diastolic (mm Hg) 2019-09-21 18:37:00 [facility] Heart Rate 2019-09-21 18:37:00 [facility] Systolic (mm Hg) 2019-06-21 20:05:00 [facility] [place] Diastolic (mm Hg) 2019-06-21 20:05:00 [facility] Heart Rate 2019-06-21 20:05:00 [facility] Respitory Rate 2019-06-21 20:05:00 [facility] Height 2019-06-21 20:05:00 160.02 cm [facility] Weight 2019-06-21 20:05:00 [facility] BMI Calculated 2019-06-21 20:05:00 [facility] [place] Systolic (mm Hg) 2019-03-22 19:34:00 [facility] [place] Diastolic (mm Hg) 2019-03-22 19:34:00 [facility] Heart Rate 2019-03-22 19:34:00 [facility] Respitory Rate 2019-03-22 19:34:00 [facility] Height 2019-03-22 19:34:00 160.02 cm [facility] Weight 2019-03-22 19:34:00 [facility] BMI Calculated 2019-03-22 19:34:00 [facility] Systolic (mm Hg) 2018-12-21 19:08:00 [facility] Diastolic (mm Hg) 2018-12-21 19:08:00 [facility] Heart Rate 2018-12-21 19:08:00 [facility] Respitory Rate 2018-12-21 19:08:00 [facility] Height 2018-12-21 19:08:00 160.02 cm [facility] Weight 2018-12-21 [facility] 2018-12-21 19:08:00 Bob Payton Procedures Procedure Date / Time Performed Performing Clinician [facility] EXTERNAL PROVIDER 2021-09-04 05:01:00 Doctor Unassigned, No [facility] [place] RECORDS Name [facility] HOME [facility] - OTHER 2021-05-31 06:01:00 [facility] Unassigned, No [facility] Plan of Care Planned Activity Planned Date Details Comments Source Future Scheduled 2022-04-02 SHINGLES VACCINES (1 Met [facility] Test 02:09:49 of 2) [code = SHINGLES VACCINES (1 of 2)] Future Scheduled 2022-04-02 65+ PNEUMOCOCCAL Methodi [facility] Test 02:09:49 VACCINE (1 - PCV) [code = 65+ PNEUMOCOCCAL VACCINE (1 - PCV)] Future Scheduled 2022-04-02 COVID-19 VACCINE (3 - [facility] Test 02:09:49 Booster for Pfizer series) [code = COVID-19 VACCINE (3 - Booster for Pfizer series)] Future Scheduled 2022-04-02 INFLUENZA VACCINE Method [facility] Hospital Test 02:09:49 [code = INFLUENZA VACCINE] Future Scheduled 2022-02-10 HEPATITIS B VACCINES Met [facility] Test 14:48:18 (1 of 3 - 3-dose series) [code = HEPATITIS B VACCINES (1 of 3 - 3-dose series)] Future Scheduled 2022-02-10 SHINGLES VACCINES (1 Met [facility] Test 14:48:18 of 2) [code = SHINGLES VACCINES (1 of 2)] Future Scheduled 2022-02-10 65+ PNEUMOCOCCAL Method[facility] Hospital Test 14:48:18 VACCINE (1 - PCV) [code = 65+ PNEUMOCOCCAL VACCINE (1 - PCV)] Future Scheduled 2022-02-10 COVID-19 VACCINE (3 - Me [facility] Test 14:48:18 Booster for Pfizer series) [code = COVID-19 VACCINE (3 - Booster for Pfizer series)] Future Scheduled 2022-02-10 INFLUENZA VACCINE Method is Hospital Test 14:48:18 [code = INFLUENZA VACCINE] Future Scheduled 2022-02-10 HEPATITIS B VACCINES Met [facility] Test 14:48:18 (1 of 3 - 3-dose series) [code = HEPATITIS B VACCINES (1 of 3 - 3-dose series)] Future Scheduled 2022-02-10 SHINGLES VACCINES (1 Met [facility] Test 14:48:18 of 2) [code = SHINGLES VACCINES (1 of 2)] Future Scheduled 2022-02-10 65+ PNEUMOCOCCAL Methodi Hospital Test 14:48:18 VACCINE (1 - PCV) [code = 65+ PNEUMOCOCCAL VACCINE (1 - PCV)] Future Scheduled 2022-02-10 COVID-19 VACCINE (3 - [facility] Test 14:48:18 Booster for Pfizer series) [code = COVID-19 VACCINE (3 - Booster for Pfizer series)] Future Scheduled 2022-02-10 INFLUENZA VACCINE Method is Hospital Test 14:48:18 [code = INFLUENZA VACCINE] Future Scheduled 2022-02-10 HEPATITIS B VACCINES Met [facility] Test 14:48:18 (1 of 3 - 3-dose series) [code = HEPATITIS B VACCINES (1 of 3 - 3-dose series)] Future Scheduled 2022-02-10 SHINGLES VACCINES (1 Met [facility] Test 14:48:18 of 2) [code = SHINGLES VACCINES (1 of 2)] Future Scheduled 2022-02-10 65+ PNEUMOCOCCAL [facility] Hospital Test 14:48:18 VACCINE (1 - PCV) [code = 65+ PNEUMOCOCCAL VACCINE (1 - PCV)] Future Scheduled 2022-02-10 COVID-19 VACCINE (3 - [facility] Test 14:48:18 Booster for Pfizer series) [code = COVID-19 VACCINE (3 - Booster for Pfizer series)] Future Scheduled 2022-02-10 INFLUENZA VACCINE Method is Hospital Test 14:48:18 [code = INFLUENZA VACCINE] Future Scheduled 2022-02-10 HEPATITIS B VACCINES Met [facility] Test 14:48:18 (1 of 3 - 3-dose series) [code = HEPATITIS B VACCINES (1 of 3 - 3-dose series)] Future Scheduled 2022-02-10 SHINGLES VACCINES (1 Met [facility] Test 14:48:18 of 2) [code = SHINGLES VACCINES (1 of 2)] Future Scheduled 2022-02-10 65+ PNEUMOCOCCAL Methodi Hospital Test 14:48:18 VACCINE (1 - PCV) [code = 65+ PNEUMOCOCCAL VACCINE (1 - PCV)] Future Scheduled 2022-02-10 COVID-19 VACCINE (3 - [facility] Test 14:48:18 Booster for Pfizer series) [code = COVID-19 VACCINE (3 - Booster for Pfizer series)] Future Scheduled 2022-02-10 INFLUENZA VACCINE Method [facility] Test 14:48:18 [code = INFLUENZA VACCINE] Future Scheduled 2022-02-10 HEPATITIS B VACCINES Met [facility] Test 14:48:18 (1 of 3 - 3-dose series) [code = HEPATITIS B VACCINES (1 of 3 - 3-dose series)] Future Scheduled 2022-02-10 SHINGLES VACCINES (1 Met [facility] Test 14:48:18 of 2) [code = SHINGLES VACCINES (1 of 2)] Future Scheduled 2022-02-10 65+ [facility] 14:[facility]18 VACCINE (1 - PCV) [code = 65+ PNEUMOCOCCAL VACCINE (1 - PCV)] Future Scheduled 2022-02-10 COVID-19 VACCINE (3 - [facility] Test 14:48:18 Booster for Pfizer series) [code = COVID-19 VACCINE (3 - Booster for Pfizer series)] Future Scheduled 2022-02-10 INFLUENZA VACCINE Method [facility] Test 14:48:18 [code = INFLUENZA VACCINE] Future Scheduled 2021-12-17 HEPATITIS B VACCINES Met [facility] Test 02:08:28 (1 of 3 - 3-dose series) [code = HEPATITIS B VACCINES (1 of 3 - 3-dose series)] Future Scheduled 2021-12-17 SHINGLES VACCINES (1 Met [facility] Test 02:08:28 of 2) [code = SHINGLES VACCINES (1 of 2)] Future Scheduled 2021-12-17 65+ PNEUMOCOCCAL Methodi Hospital Test 02:08:28 VACCINE (1 - PCV) [code = 65+ PNEUMOCOCCAL VACCINE (1 - PCV)] Future Scheduled 2021-12-17 COVID-19 VACCINE (3 - [facility] Test 02:08:28 Booster for Pfizer series) [code = COVID-19 VACCINE (3 - Booster for Pfizer series)] Future Scheduled 2021-12-17 INFLUENZA VACCINE Method [facility] Test 02:08:28 [code = INFLUENZA VACCINE] Future Scheduled [facility] [code = 620714246] Future Scheduled SHINGLES VACCINES (#1) M ethodist [...] Date/Time Type Type Clinicians Facility Department ID 2022-02-19 Outpatient Jerry Torres [facility] [id number] Common 09:25:03 [facility] 2022-02-18 Outpatient Jerry Torres [facility] [id number] Common 13:53:02 [facility] 2022-01-06 Inpatient Amadou Diaz [facility] [id number] [facility] 10:00:[address] [place] [address] 2021-10-23 Outpatient Jerry Torres [facility] [id number] Common 10:58:02 [facility] 2021-10-14 Outpatient Jerry Torres [facility] [id number] Common 08:43:01 [facility] 2021-08-26 Outpatient [facility] [id number] Common 16:25:02 [facility] 2021-08-21 Outpatient [facility] [id number] Common 14:23:02 [facility] 2021-05-16 Outpatient 3 [id number] ENC[facility] OT [facility] 13:02:17 [facility]6 [facility] 2021-05-16 Outpatient [id number] ENCPL REF [id number] [facility] 12:59:17 0929 [facility] Re[facility] itation [facility] 2021-05-15 [facility] [id number] Common 13:11:24 [id number] [facility] 2022-06-24 2022-06-24 Outpatient DICK JENNINGS [id number] [facility] 13:30:00 13:30:00 24 jm Arzate 2022-03-25 2022-03-26 Outpatient MHIE MNA [id number] [facility] 21:00:00 05:59:59 Neurology 23 jm Arzate 2022-03-25 2022-03-25 Outpatient [id number] 15:00:00 23:59:59 Chin 23 Rickey 2022-03-25 2022-03-25 Outpatient MHIE MHIE [id number] [facility] 15:00:00 15:00:00 23 jm Arzate 2022-03-25 2022-03-25 Outpatient MHIE MHIE [id number] [facility] 15:00:00 15:00:00 23 jm Arzate 2022-02-24 2022-02-24 (TEL) STLMLC STLMLC [id number] Co mmon 00:00:00 00:00:00 [facility] 2022-02-20 2022-02-20 OFFICE STLMLC STLMLC [id number] Co mmon 00:00:00 00:00:00 VISIT EST Spir it PT LEVEL 3 [facility] 2021-11-27 2021-11-27 OFFICE STLMLC STLMLC [id number] Co mmon 00:00:00 00:00:00 VISIT EST Spir it PT LEVEL 3 [facility] 2021-11-06 2021-11-06 OFFICE STLMLC STLMLC [id number] Co mmon 00:00:00 00:00:00 VISIT NEW Spir it PT LEVEL 3 - [facility] 2021-10-23 2021-10-23 OFFICE STLMLC STLMLC [id number] Co mmon 00:00:00 00:00:00 VISIT EST Spir it PT LEVEL 3 [facility] 2021-09-24 2021-09-25 Outpatient nullFlavo MNA [id number] [facility] 21:15:00 04:59:59 r Neurology 19 l Abigail Huey 2021-09-24 2021-09-25 Outpatient nullFlavo MNA [id number] Memoria 21:15:00 04:59:59 r Neurology 19 l Luverne Huey 2021-09-242021-09-24 Outpatient Adilia MISCHER MISCHER [id number] 16:15:00 23:59:59 Chin Lang 2021-09-24 2021-09-24 Outpatient MHIE IE [id number] Memoria 16:15:00 16:15:00 Adiel Arzate 2021-09-04 2021-09-04 Orders Doctor STEPHANIE 1.2.840.114 [id number] Univers 00:00:00 00:00:00 Only Unassigned, JANE 350.1.13.10 ity of [place] [facility] 4.2.7.2.686 Simba as [phone] [address] 2021-08-13 2021-08-[address] [facility] 1.2.355.327 [id number] Univers 00:00:00 00:00:00 [facility] SearchMe 350.1.13.10 [facility] 4.2.7.2.686 [place] as XAVI?BLEA [phone] Ks dacia[address] OFFICE [facility] 2021-07-24 2021-07-24 [facility] [id number] Univers 14:30:00 15:15:[address] [facility] 2021-07-24 2021-07-[address] [facility] 1.2.341.493 [id number] Univers 14:30:00 15:15:52 Visit [facility] 350.1.13.10 it y of [place] 4.2.7.2.686 Simba as XAVI?BLEA [phone] [address] OFFICE [facility] 2021-07-24 2021-07-24 [facility] [id number] Univers 14:45:00 14:45:[address] [facility] 2021-07-18 2021-07-[address] [facility] 1.2.805.001 [id number] Univers 10:15:00 10:30:00 Visit [facility] 350.1.13.10 [facility] 4.2.7.2.686 [place]ba as XAVI?BLEA [phone] [address] OFFICE BUILDING 2021-07-18 2021-07-18 Outpatient R [facility]URENT [facility] [id number] Univers 10:15:00 10:15:[address] [facility] 2021-07-18 2021-07-18 Outpatient R [facility]ENT [facility] [id number] Univers 10:15:00 10:15:[address] [facility] 2021-06-04 2021-06-04 Ambulatory nullFlavo MNA [id number] Memoria 20:15:00 20:15:00 Pre-Reg r Neurology 22 l Abigail Arzate 2021-06-04 2021-06-04 Ambulatory nullFlavo MNA [id number] Memoria 20:15:00 20:15:00 Pre-Reg r Neurology 22 l Abigail Arzate 2021-06-04 2021-06-04 Outpatient MHIE DAYAN [id number] Memoria 14:15:00 14:15:00 22 l Huey 2021-06-04 2021-06-04 [facility] [id number] 14:15:00 14:15:00 Chin Leno Rickey 2021-05-31 2021-05-31 Orders Doctor STEPHANIE 1.2.840.114 [id number] Univers 00:00:00 00:00:00 Only Unassigned, JANE 350.1.13.10 ity of [place] [facility] 4.2.7.2.686 [place]ba as [phone] [address] 2021-05-22 2021-05-22 Orders Doctor BROWN 1.2.840.114 [id number] Univers 00:00:00 00:00:00 Only Unassigned, JANE 350.1.13.10 ity of [place] HOSPITAL 4.2.7.2.686 [place] as [phone] [address] 2021-05-14 2021-05-14 Telephone Laurent [facility] 1.2.840.114 [id number] Univers 00:00:00 00:00:00 Laura [facility] 350.1.13.10 it y of [place] 4.2.7.2.686 Simba as XAVI?BLEA [phone] Ks cong ROJO 198 [facility] 2021-05-09 2021-05-09 Telephone ABRAN Mancilla 1.2.840.114 [id number] Univers 00:00:00 00:00:00 Laura ALVARADO 350.1.13.10 it y of [place] 4.2.7.2.686 Simba as XVAI?BLEA [phone] Ks cong ROJO 198 [facility] 2021-05-07 2021-05-08 Outpatient nullFlavo MNA [id number] Memoria 19:15:00 05:59:59 r Neurology 21 l Abigail Arzate 2021-05-07 2021-05-08 Outpatient nullFlavo MNA [id number] Memoria 19:15:00 05:59:59 r Neurology 21 l Abigail Arzate 2021-05-07 2021-05-07 Outpatient FERMIN PatMISCHER MHMISCHER [id number] 13:15:00 23:59:59 Chin 21 Rickey 2021-05-07 2021-05-07 Outpatient MHIE MHIE [id number] Memoria 13:15:00 13:15:00 21 jm Arzate 2021-04-23 2021-04-24 Outpatient nullFlavo MNA [id number] Memoria 22:00:00 05:59:59 r Neurology 20 l Abigail Arzate 2021-04-23 2021-04-24 Outpatient nullFlavo MNA [id number] Memoria 22:00:00 05:59:59 r Neurology 20 l Abigail Arzate 2021-04-23 2021-04-23 Outpatient [facility] [id number] 16:00:00 23:59:59 Chin 20 Rickey 2021-04-23 2021-04-23 Outpatient MHIE MHIE [id number] Memoria 16:00:00 16:00:00 20 jm Arzate 2021-04-18 2021-04-18 Telephone ABRAN Mancilla 1.2.840.114 [id number] Univers 00:00:00 00:00:00 Laura ALVARADO 350.1.13.10 it y of [place] 4.2.7.2.686 Simba as XAVI?BLEA [phone] Me cong ROJO 198 [facility] OFFICE [facility] 2021-04-17 2021-04-17 [facility] [id number] Univers 15:45:00 23:59:[address] [facility] 2021-04-17 2021-04-[address] [facility] 1.2.840.114 [id number] Univers 15:45:00 23:59:00 Encounter Laura ALVARADO 350.1.13.10 [facility] 4.2.7.2.686 [place] as XAVI?BLEA [phone] Me cong ROJO 809 [facility] 2021-04-17 2021-04-[address] [facility] 1.2.832.174 [id number] Univers 15:00:00 16:28:08 Visit Laura ALVARADO 350.1.13.10 it [facility] 4.2.7.2.686 [place]ba as XAVI?BLEA [phone] Me cong ROJO 198 [facility] 2021-04-17 2021-04-17 [facility] [id number] Univers 15:00:00 16:28:08 [facility] 2021-04-15 2021-04-[address] [facility] 1.2.840.114 [id number] Univers 00:00:00 00:00:00 Laura ALVARADO 350.1.13.10 it y of [place] 4.2.7.2.686 Simba as XAVI?BLEA [phone] Me cong ROJO 198 [facility] 2021-03-29 2021-03-30 Outpatient nullFlavo MNA [id number] Memoria 17:00:00 05:59:59 r Neurology 18 l Abigail Arzate 2021-03-29 2021-03-30 Outpatient nullFlavo MNA [id number] Memoria 17:00:00 05:59:59 r Neurology 18 l Abigail Arzate 2021-03-29 2021-03-29 Outpatient JOSE Pat [facility] [id number] 11:00:00 23:59:59 Chin Lang 2021-03-29 2021-03-29 Outpatient IE IE [id number] Memoria 11:00:00 11:00:00 18 jm Arzate 2021-03-26 2021-03-26 Orders Doctor STEPHANIE 1.2.840.114 [id number] Univers 00:00:00 00:00:00 Only Unassigned, JANE 350.1.13.10 ity of [place] [facility]OSPITAL 4.2.7.2.686 [place]ba as [phone] [address] 2021-03-25 2021-03-[address] [facility] 1.2.840.114 [id number] Univers 00:00:00 00:00:00 Laura L HEALTH 350.1.13.10 it y of [place] 4.2.7.2.686 Simba as XAVI?BLEA [phone] [facility] [address] [facility] OFFICE [facility] 2021-03-23 2021-03-23 Orders Doctor STEPHANIE 1.2.840.114 [id number] Univers 00:00:00 00:00:00 Only Unassigned, JANE 350.1.13.10 ity of [place] HOSPITAL 4.2.7.2.686 [place]ba as [phone] [address] 2021-03-22 2021-03-[address] [facility] 1.2.840.114 [id number] Univers 00:00:00 00:00:00 Lauar L HEALTH 350.1.13.10 it y of [place] 4.2.7.2.686 Simba as XAVI?BLEA [phone] [facility] 198 [facility] 2021-03-18 2021-03-18 Orders Doctor BROWN 1.2.840.114 [id number] Univers 00:00:00 00:00:00 Only Unassigned, JANE 350.1.13.10 ity of [place] HOSPITAL 4.2.7.2.686 [place] as [phone] [address] 2021-03-12 2021-03-12 Telephone [facility] 1.2.819.026 [id number] Univers 00:00:00 00:00:00 Jonathon S HEALTH 350.1.13.10 it y of [place] 4.2.7.2.686 [place]ba as XAVI?BLEA [phone] Ks cong ROJO 198 [facility] OFFICE [facility] 2021-03-04 2021-03-[address] [facility] 1.2.461.459 [id number] Univers 13:34:19 14:01:40 Visit Laura ALVARADO 350.1.13.10 it y of [place] 4.2.7.2.686 Simba as XAVI?BLEA [phone] Ks cong ROJO 198 [facility] OFFICE [facility] 2021-03-04 2021-03-04 [facility] [id number] Univers 13:30:00 14:01:[address] [facility] 2021-03-04 2021-03-04 [facility] [id number] Univers 13:30:00 13:30:00 [facility] 2021-01-30 2021-01-30 [facility] 1.2.840.114 [id number] Univers 13:00:00 23:59:00 Encounter Laura Alvarado 350.1.13.10 ity of [place] 4.2.7.2.686 Simba as Xavi?Blea [phone] Ks cong rojo 809 [facility] Office [facility] 2021-01-30 2021-01-30 Office [facility] 1.2.066.571 [id number] Univers 12:47:10 14:01:14 Visit Laura Alvarado 350.1.13.10 it y of [place] 4.2.7.2.686 Simba as Xavi?Blea [phone] Ks cong rojo 198 [facility] Office [facility] 2021-01-30 2021-01-30 [facility] [id number] Univers 13:00:00 13:00:00 LAURA [facility] 2021-01-08 2021-01-08 Telephone [facility] 1.2.840.114 [id number] Univers 00:00:00 00:00:00 Laura [facility] 350.1.13.10 it y of [place] 4.2.7.2.686 Simba as Xavi?Blea [phone] Ks cong solano 198 [facility] Office [facility] 2021-01-02 2021-01-[address] [facility] 1.2.967.856 [id number] Univers 14:31:57 15:14:33 Visit Laura [facility] 350.1.13.10 it y of [place] 4.2.7.2.686 Simba as Xavi?Blea [phone] Ks cong solano 198 [facility] Office [facility] 2021-01-02 2021-01-02 [facility] [id number] [facility] 14:45:00 14:45:00 LAURA denisdeysi of [facility] 2021-01-02 2021-01-02 Orders Doctor STEPHANIE 1.2.840.114 [id number] Univers 00:00:00 00:00:00 Only Unassigned, JANE 350.1.13.10 ity of [place] [facility] 4.2.7.2.686 [place] as [id number] [address] 2021-01-02 2021-01-02 Orders Doctor STEPHANIE 1.2.840.114 [id number] [facility] 00:00:00 00:00:00 Only Unassigned, JANE 350.1.13.10 ity of [place] [facility]OSPITAL 4.2.7.2.686 Simba as [phone] [address] 2020-12-05 2020-12-05 Outpatient [facility] [id number] [facility] 00:00:00 23:59:00 Shagufta Medicin gisela 2020-11-27 2020-11-28 Outpatient nullFlavo MNA [id number] Memoria 20:15:00 04:59:59 r Neurology 17 l Abigail Arzate 2020-11-27 2020-11-28 Outpatient nullFlavo MNA [id number] Memoria 20:15:00 04:59:59 r Neurology 17 l Abigail Arzate 2020-11-27 2020-11-27 Outpatient JOSE Pat 030 [id number] 15:15:00 23:59:59 Chin Lang 2020-11-27 2020-11-27 Outpatient MHIE IE [id number] Memoria 15:15:00 15:15:00 17 l Huey 2020-09-25 2020-09-25 Ambulatory nullFlavo MNA [id number] Memoria 19:30:00 19:30:00 Pre-Reg r Neurology 14 l Abigail Arzate 2020-09-25 2020-09-25 Ambulatory nullFlavo MNA [id number] Memoria 19:30:00 19:30:00 Pre-Reg r Neurology 14 l Abigail Pennann 2020-09-25 2020-09-25 Outpatient MHIE IE [id number] Memoria 14:30:00 14:30:00 14 jm Huey 2020-09-25 2020-09-25 Outpatient Ad[facility] [id number] 14:30:00 14:30:00 Chin 14 Rickey 2020-08-27 2020-08-28 Outpatient nullFlavo MNA [id number] Memoria 18:15:00 04:59:59 r Neurology 16 l Abigail Huey 2020-08-27 2020-08-28 Outpatient nullFlavo MNA [id number] Memoria 18:15:00 04:59:59 r Neurology 16 l Abigail [place] 2020-08-27 2020-08-27 Outpatient Adilia [facility] [id number] 13:15:00 23:59:59 Chin 16 Rickey 2020-08-27 2020-08-27 [place] [address].2.840.1 [id number] Methodi 08:36:31 23:59:00 Encounter Renan 71398.1.[address] 3.430.2.7 Hospit a .3.164130 l .8 2020-08-27 2020-08-27 Outpatient MHIE IE [id number] Memoria 13:15:00 13:15:00 16 jm Arzate 2020-07-23 2020-07-24 Outpatient nullFlavo MNA [id number] Memoria 18:15:00 04:59:59 r Neurology 15 l Abigail Pennann 2020-07-23 2020-07-24 Outpatient nullFlavo MNA [id number] Memoria 18:15:00 04:59:59 r Neurology 15 l Abigail Arzate 2020-07-23 2020-07-23 Outpatient KATERYNA PatSCHER [facility] [id number] 13:15:00 23:59:59 Chin 15 Rickey 2020-07-23 2020-07-23 Outpatient MHIE MHIE [id number] Memoria 13:15:00 13:15:00 15 Huey 2020-07-03 2020-07-03 Office Canela, 1.2.840.1 [id number] Methodi 13:03:28 13:29:49 Visit Renan 34313.1.[address] 3.430.2.7 Hospit a .3.621420 l .8 2020-07-03 2020-07-03 Travel 1.2.840.1 1.2.967.476 [id number] Methodi 00:00:00 00:00:[address] 3.430.2.7 0.2.7.3.698 Ho spita .3.722722 084.8 l .8 2020-06-26 2020-06-27 Outpatient nullFlavo MNA [id number] Memoria 20:30:00 05:59:59 r Neurology 13 l Abigail Arzate 2020-06-26 2020-06-27 Outpatient nullFlavo MNA [id number] Memoria 20:30:00 05:59:59 r Neurology 13 l Abigail Arzate 2020-06-26 2020-06-26 Outpatient KATERYNA PatSCHER [facility] [id number] 14:30:00 23:59:59 Chin 13 Rickey 2020-06-26 2020-06-26 Outpatient MHIE MHIE [id number] Memoria 14:30:00 14:30:00 13 jm Arzate 2020-05-08 2020-05-08 Outpatient MHIE MHIE [id number] Memoria 14:00:00 14:00:00 10 jm Huey 2020-05-08 2020-05-08 Outpatient MHIE MHIE [id number] Memoria 14:00:00 14:00:00 10 l [place] 2020-03-28 2020-03-29 Outpatient nullFlavo MNA [id number] Memoria 20:15:00 05:59:59 r Neurology 12 l Abigail Pennann 2020-03-28 2020-03-29 Outpatient nullFlavo MNA [id number] Memoria 20:15:00 05:59:59 r Neurology 12 l Abigail [place] 2020-03-28 2020-03-28 Outpatient Adilia [facility]ISCHER [id number] 14:15:00 23:59:59 Chin 12 Rickey 2020-03-28 2020-03-28 Outpatient MHIE MHIE [id number] Memoria 14:15:00 14:15:00 12 l [place] 2020-02-27 2020-02-28 Outpatient nullFlavo MNA [id number] Memoria 20:15:00 05:59:59 r Neurology 11 l Abigail [place] 2020-02-27 2020-02-28 Outpatient nullFlavo MNA [id number] Memoria 20:15:00 05:59:59 r Neurology 11 l Abigail [place] 2020-02-27 2020-02-27 Outpatient Adilia [facility]ER [id number] 14:15:00 23:59:59 Chin 11 [facility] 2020-02-27 2020-02-27 Outpatient MHIE MHIE [id number] Memoria 14:15:00 14:15:00 11 l [place] 2020-01-05 2020-01-06 Outpatient nullFlavo MNA [id number] Memoria 20:00:00 04:59:59 r Neurology 09 l Abigail [place] 2020-01-05 2020-01-06 Outpatient nullFlavo MNA [id number] Memoria 20:00:00 04:59:59 r Neurology 09 l Abigail [place] 2020-01-05 2020-01-05 Outpatient Adilia [facility]ER [id number] 15:00:00 23:59:59 Chin 09 [facility] 2020-01-05 2020-01-05 Outpatient MHIE MHIE [id number] Memoria 15:00:00 15:00:00 09 l [place] 2019-11-24 2019-11-25 Outpatient nullFlavo MNA [id number] Memoria 19:30:00 04:59:59 r Neurology 08 l Abigail Arzate 2019-11-24 2019-11-25 Outpatient nullFlavo MNA [id number] Memoria 19:30:00 04:59:59 r Neurology 08 l Abigail Arzate 2019-11-24 2019-11-24 Outpatient Adilia [facility]ER [id number] 14:30:00 23:59:59 Chin 08 Rickey 2019-11-24 2019-11-24 Ambulatory nullFlavo MNA [id number] Memoria 19:30:00 19:30:00 Pre-Reg r Neurology 07 l Abigail Arzate 2019-11-24 2019-11-24 Ambulatory nullFlavo MNA [id number] Memoria 19:30:00 19:30:00 Pre-Reg r Neurology 07 l Abigail Arzate 2019-11-24 2019-11-24 Outpatient MHIE MHIE [id number] Memoria 14:30:00 14:30:00 08 l [place] 2019-11-24 2019-11-24 Outpatient MHIE MHIE [id number] Memoria 14:30:00 14:30:00 07 l Huey 2019-11-24 2019-11-24 Outpatient Adilia MAMIESCHER MISCHER [id number] 14:30:00 14:30:00 Chin 07 Rickey 2019-09-21 2019-09-22 Outpatient nullFlavo MNA [id number] Memoria 18:30:00 04:59:59 r Neurology 06 l Abigail Pennann 2019-09-21 2019-09-22 Outpatient nullFlavo MNA [id number] Memoria 18:30:00 04:59:59 r Neurology 06 l Abigail Pennann 2019-09-21 2019-09-21 Outpatient Adilia [facility] [id number] 13:30:00 23:59:59 Chin 06 Rickey 2019-09-21 2019-09-21 Outpatient MHIE MHIE [id number] Memoria 13:30:00 13:30:00 06 jm PennHuey 2019-06-21 2019-06-22 Outpatient nullFlavo MNA [id number] Memoria 19:45:00 05:59:59 r Neurology 05 l Luverne Huey 2019-06-21 2019-06-22 Outpatient nullFlavo MNA [id number] Memoria 19:45:00 05:59:59 r Neurology 05 jm Arzate 2019-06-21 2019-06-21 Outpatient Adilia, [facility] MISCHER [id number] 13:45:00 23:59:59 Chinrangel Lang 2019-06-21 2019-06-21 Outpatient MHIE MHIE [id number] Memoria 13:45:00 13:45:00 05 jm [place] 2019-03-22 2019-03-23 Outpatient nullFlavo MNA [id number] Memoria 19:30:00 05:59:59 r Neurology 04 jm Arzate 2019-03-22 2019-03-23 Outpatient nullFlavo MNA [id number] Memoria 19:30:00 05:59:59 r Neurology 04 jm Hayes [place] 2019-03-22 2019-03-22 Outpatient Adilia, [facility] M[facility]ER [id number] 13:30:00 23:59:59 Chin Tanika Lang 2019-03-22 2019-03-22 Outpatient MHIE MHIE [id number] Memoria 13:30:00 13:30:00 04 jm Huey 2018-12-21 2018-12-22 Outpatient nullFlavo MNA [id number] Memoria 19:15:00 04:59:59 r Neurology 03 jm Hayes [place] 2018-12-21 2018-12-22 Outpatient nullFlavo MNA [id number] Memoria 19:15:00 04:59:59 r Neurology 03 jm Hayes [place] 2018-12-21 2018-12-21 Outpatient Adilia, [facility]ER [id number] 14:15:00 23:59:59 Chin 03 Rickey 2018-12-21 2018-12-21 Outpatient MHIE MHIE [id number] Memoria 14:15:00 14:15:00 03 jm Huey 2018-06-22 2018-06-22 Outpatient MHIE MHIE [id number] Memoria 13:45:00 13:45:00 02 jm Huey 2018-06-22 2018-06-22 Outpatient MHIE MHIE [id number] Memoria 13:45:00 13:45:00 02 [place] 2017-12-22 2017-12-22 Outpatient DICK CHRISTENSENIE [id number] Memoria 13:30:00 13:30:00 01 l Huey 2017-12-22 2017-12-22 Outpatient FERMINIE FERMINIE [id number] Memoria 13:30:00 13:30:00 01 l Huey 2017-08-14 2017-08-14 Outpatient IE FERMINIE [id number] Memoria 14:30:00 14:30:00 00 l Huey 2017-08-14 2017-08-14 Outpatient FERMINIE FERMINIE [id number] Memoria 14:30:00 14:30:00 00 [facility] Results Test Description Test Time Test Comments Results Result Comments Source CHEM PANEL 2021-09-25 15:57:00 Test Item Value Reference Range Interpretation Comme nts BUN (test code = BUN) 20 11-11 [facility] [employer] [id number] 15:57:00 Test Item Value Reference Range Interpretation Comments Creatinine Lvl (test code = Creatinine 1.21 0.60-0.88 Lvl) [facility] [employer] [id number] 15:57:00 Test Item Value Reference Range Interpretation Comments eGFR NON-AFR. [place] (test code = 42 eGFR NON-AFR. [place]) [facility] [employer] [id number] 15:57:00 Test Item Value Reference Range Interpretation Comments eGFR (test code = eGFR 49 ) [facility] [employer] [id number] 15:57:00 Test Item Value Reference Range Interpretation Comments B/C Ratio (test code = B/C Ratio) 17 10-09 [facility]CLGXYJMYHJHO2853-00-18 15:57:00 Test Item Value Reference Range Interpretation Comments Sodium Lvl (test code = Sodium Lvl) 138 135-146 [facility] [place] [id number] 15:57:00 Test Item Value Reference Range Interpretation Comments Potassium Lvl (test code = Potassium 4.5 3.5-5.3 Lvl) [facility] CenterMkghodxEMEQKDMQXSXV0936-97-89 15:57:00 Test Item Value Reference Range Interpretation Comments Chloride Lvl (test code = Chloride Lvl) 106 98-110 [facility] CenterJethjuxJXJACLAXHECW8201-88-12 15:57:00 Test Item Value Reference Range Interpretation Comments CO2 (test code = CO2) 21 20-32 [id number] 15:57:00 Test Item Value Reference Range Interpretation Comments WBC X 10x3 (test code = WBC X 10x3) 7.0 3.8-10.8 [place] [id number] 15:57:00 Test Item Value Reference Range Interpretation Comments RBC X 10x6 (test code = RBC X 10x6) 4.65 3.80-5.10 [facility] PasoHgzgzsjJDREBTGCZH9543-96-05 15:57:00 Test Item Value Reference Range Interpretation Comments Hgb (test code = Hgb) 14.7 11.7-15.5 [facility] PasoZlpljoxHHWGLYKVCS4303-52-45 15:57:00 Test Item Value Reference Range Interpretation Comments Hct (test code = Hct) 45.1 35.0-45.0 [facility] PasoGholxdtIPUCCWKIXJ7073-84-58 15:57:00 Test Item Value Reference Range Interpretation Comments MCV (test code = MCV) 97.0 80.0-100.0 [facility] PasoMmrrkqsHXWNYBETRA9806-57-04 15:57:00 Test Item Value Reference Range Interpretation Comments MCH (test code = MCH) 31.6 pg 27.0-33.0 [facility] PasoWigkcxhFKIVEGWHOH0349-39-85 15:57:00 Test Item Value Reference Range Interpretation Comments MCHC (test code = MCHC) 32.6 32.0-36.0 [facility] PasoElcnbakXVCCZKLKYB9301-15-87 15:57:00 Test Item Value Reference Range Interpretation Comments RDW (test code = RDW) 12.9 11.0-15.0 [facility] PasoMiehccvHMAXWJCYIO3002-41-95 15:57:00 Test Item Value Reference Range Interpretation Comments Platelet (test code = Platelet) 241 140-400 [facility] PasoKfcwnvaXEBLVJIJTU2043-10-04 15:57:00 Test Item Value Reference Range Interpretation Comments MPV (test code = MPV) 10.9 7.5-12.5 [facility] PasoJcrkcwiPURMRGYQLT2341-66-90 15:57:00 Test Item Value Reference Range Interpretation Comments Neutrophils # (test code = Neutrophils 4060 1830-3313 #) [place] 547222-06-08 15:57:00 Test Item Value Reference Range Interpretation Comments Lymphocytes # (test code = Lymphocytes 2191 850-3900 #) [facility]3716[facility] 15:57:00 Test Item Value Reference Range Interpretation Comments Monocytes # (test code = Monocytes #) 511 200-950 [facility] HospitalQjjnqqqZRHLGPOTCJ8004-78-49 15:57:00 Test Item Value Reference Range Interpretation Comments Eosinophils # (test code = Eosinophils 161 15-500 #) [facility] PasoZjyfnuhLSWNPOVWNC8249-40-14 15:57:00 Test Item Value Reference Range Interpretation Comments Basophils # (test code 77 See_Comment [Aut omated message] The = Basophils #) system which generated this result tra nsmitted reference range : <=200. The reference r guillaume was not used to int erpret this result as normal/abnormal . [facility] PasoPocfyvzIYQJVDZLRO1684-42-24 15:57:00 Test Item Value Reference Range Interpretation Comments Segs (test code = Segs) 58 [facility] PasoStkrsbtKEZYBOQOTS2754-11-27 15:57:00 Test Item Value Reference Range Interpretation Comments Lymphocytes (test code = Lymphocytes) 31.3 [facility] PasoVubebghVYBXUVGPTW7245-25-63 15:57:00 Test Item Value Reference Range Interpretation Comments Monocytes (test code = Monocytes) 7.3 [facility] PasoTqxboriVYEMROIZCJ6384-58-63 15:57:00 Test Item Value Reference Range Interpretation Comments Eosinophils (test code = Eosinophils) 2.3 [facility] PasoQrisusqMWEJLJPUFW7232-84-97 15:57:00 Test Item Value Reference Range Interpretation Comments Basophils (test code = Basophils) 1.1 [facility] [employer] KCAML9107-10-46 15:57:00 Test Item Value Reference Range Interpretation Comments BUN (test code = BUN) 20 7-25 [facility] [facility] [id number] 15:57:00 Test Item Value Reference Range Interpretation Comments Creatinine Lvl (test code = Creatinine 1.21 0.60-0.88 Lvl) [facility] [id number] 15:57:00 Test Item Value Reference Range Interpretation Comments eGFR NON-AFR. [place] (test code = 42 eGFR NON-AFR. [place]) [facility] [id number] 15:57:00 Test Item Value Reference Range Interpretation Comments eGFR (test code = eGFR 49 ) [facility] [id number] 15:57:00 Test Item Value Reference Range Interpretation Comments B/C Ratio (test code = B/C Ratio) 17 6-22 [facility]TY[facility]LV2786[facility]25-28 15:57:00 Test Item Value Reference Range Interpretation Comments Sodium Lvl (test code = Sodium Lvl) 138 135-146 [facility]HtcwesjJKIZMBJSNBUL6087-87-97 15:57:00 Test Item Value Reference Range Interpretation Comments Potassium Lvl (test code = Potassium 4.5 3.5-5.3 Lvl) [facility] C[id number] 15:57:00 Test Item Value Reference Range Interpretation Comments Chloride Lvl (test code = Chloride Lvl) 106 98-110 [place] [id number] 15:57:00 Test Item Value Reference Range Interpretation Comments CO2 (test code = CO2) 21 20-32 [id number] 15:57:00 Test Item Value Reference Range Interpretation Comments WBC X 10x3 (test code = WBC X 10x3) 7.0 3.8-10.8 [facility] [id number] 15:57:00 Test Item Value Reference Range Interpretation Comments RBC X 10x6 (test code = RBC X 10x6) 4.65 3.80-5.10 [place] [id number] 15:57:00 Test Item Value Reference Range Interpretation Comments Hgb (test code = Hgb) 14.7 11.7-15.5 [place] [id number] 15:57:00 Test Item Value Reference Range Interpretation Comments Hct (test code = Hct) 45.1 35.0-45.0 [place] [id number] 15:57:00 Test Item Value Reference Range Interpretation Comments MCV (test code = MCV) 97.0 80.0-100.0 [place] [address]-06-08 15:57:00 Test Item Value Reference Range Interpretation Comments MCH (test code = MCH) 31.6 pg 27.0-33.0 [place] [id number] 15:57:00 Test Item Value Reference Range Interpretation Comments MCHC (test code = MCHC) 32.6 32.0-36.0 [place] [id number] 15:57:00 Test Item Value Reference Range Interpretation Comments RDW (test code = RDW) 12.9 11.0-15.0 [facility] [id number] 15:57:00 Test Item Value Reference Range Interpretation Comments Platelet (test code = Platelet) 241 140-400 [facility] [id number] 15:57:00 Test Item Value Reference Range Interpretation Comments MPV (test code = MPV) 10.9 7.5-12.5 [facility] [id number] 15:57:00 Test Item Value Reference Range Interpretation Comments Neutrophils # (test code = Neutrophils 4060 0465-1401 #) [facility] [id number] 15:57:00 Test Item Value Reference Range Interpretation Comments Lymphocytes # (test code = Lymphocytes 2191 850-3900 #) [facility] [id number] 15:57:00 Test Item Value Reference Range Interpretation Comments Monocytes # (test code = Monocytes #) 511 200-950 [place] [id number] 15:57:00 Test Item Value Reference Range Interpretation Comments Eosinophils # (test code = Eosinophils 161 15-500 #) [facility] [id number] 15:57:00 Test Item Value Reference Range Interpretation Comments Basophils # (test code 77 See_Comment [Aut omated message] The = Basophils #) system which generated this result tra nsmitted reference range : <=200. The reference r guillaume was not used to int erpret this result as normal/abnormal . [facility] [id number] 15:57:00 Test Item Value Reference Range Interpretation Comments Segs (test code = Segs) 58 [facility] [id number] 15:57:00 Test Item Value Reference Range Interpretation Comments Lymphocytes (test code = Lymphocytes) 31.3 [place] [address]-06-08 15:57:00 Test Item Value Reference Range Interpretation Comments Monocytes (test code = Monocytes) 7.3 [place] [id number] 15:57:00 Test Item Value Reference Range Interpretation Comments Eosinophils (test code = Eosinophils) 2.3 [facility] Pa[id number] 15:57:00 Test Item Value Reference Range Interpretation Comments Basophils (test code = Basophils) 1.1 [facility]
[2022-04-02] MEDS ORDERED: ONDANSETRON 4 MG/2 ML VIAL ONE (17:55)
[2022-04-02] MEDS ORDERED: MORPHINE 2 MG/ML SYR ONE (17:55)
[2022-04-02] MEDS ORDERED: NA CHLORIDE 0.9% 500 ML ONE (17:55)
[2022-04-02 18:28] LABS: Absolute Lymphocytes (CBC) 1.3 K/uL (0.7-4.9); Hematocrit 41.7 % (36.0-45.0); MCV 96.8 fL (80-100); MPV 8.1 fL (7.6-11.3); RBC Red Blood Cell Count 4.31 M/uL (3.86-4.86)
[2022-04-02 18:30] LABS: Protime INR 1.3
--- NOTE | 2022-04-02 18:30 | RAD REPORT ---
EXAM DESCRIPTION: RAD - Knee Left 3 View - 04/02/2022 6:00 pm CLINICAL HISTORY: Left knee pain FINDINGS: A left knee arthroplasty without evidence of loosening. No fracture or dislocation Appears to be defect within the anterior subcutaneous tissues. This may be a real finding or secondar y to positioning
--- NOTE | 2022-04-02 18:31 | RAD REPORT ---
EXAM DESCRIPTION: RAD - Femur Right - 04/02/2022 6:00 pm CLINICAL HISTORY: Leg pain FINDINGS: No fracture is seen. No bony abnormality is displayed
[2022-04-02 18:40] LABS: Potassium 4.1 mmol/L (3.5-5.1)
[2022-04-02 19:20] LABS: Troponin High Sensitivity 6.9 pg/mL (<58.9)
--- NOTE | 2022-04-02 19:22 | ER ---
Nurse's Notes [facility] Name: Agnes Calabrese Age: 82 yrs Sex: Female : 1940 Arrival Date: 04/02/2022 Time: 17:34 Bed 6 Private MD: Diagnosis: Fall on same level, unspecified;Pain in left knee;Obesity, unspecified;Weakness Presentation: 04/02 17:42 Chief complaint: EMS states: pt stood up from the toilet and lost her balance and fell mb9 over hitting her left knee. Pt denies LOC and states she did not hit her head. Pt states she can't put weight on her left leg. Coronavirus screen: Vaccine status: Patient reports receiving the 2nd dose of the covid vaccine. Ebola Screen: No symptoms or risks identified at this time. Initial Sepsis Screen: Does the patient meet any 2 criteria? No. Patient's initial sepsis screen is negative. Does the patient have a suspected source of infection? No. Patient's initial sepsis screen is negative. Risk Assessment: Do you want to hurt yourself or someone else? Patient reports no desire to harm self or others. Onset of symptoms was April 02, 2022. 17:42 Method Of Arrival: EMS: [facility] mb9 17:42 Acuity: WARREN 3 mb9 Historical: - Allergies: 17:45 clindamycin HCl (bulk); mb9 17:45 Darvocet-N 100; mb9 17:45 PENICILLINS; mb9 17:45 Strawberries; mb9 17:45 Sulfa (Sulfonamide Antibiotics); mb9 - Home Meds: 17:45 duloxetine 60 mg Oral cpDR 2 caps once daily [Active]; mb9 - PMHx: 17:45 AFIB; lymphedema; COPD; Depression; Fibromyalgia; GERD; Hyperlipidemia; Hypothyroidism; mb9 Alzheimer's disease; left breast cancer; Hypertension; - PSHx: 17:45 Total abdominal hysterectomy; Spinal Fusion; Bilateral Knee Replacement; Mastectomy; mb9 Appendectomy; - Immunization history:: Adult Immunizations up to date. - Social history:: Smoking status: Patient reports the use of cigarette tobacco products, Patient/guardian denies using tobacco, but has a distant history of tobacco abuse. - Family history:: not pertinent. Screenin:20 Abuse screen: Denies threats or abuse. Denies injuries from another. Nutritional ha1 screening: No deficits noted. Tuberculosis screening: No symptoms or risk factors identified. Fall Risk IV access (20 points). Gait- Weak (10 pts.). Total Arredondo Fall Scale indicates Low Risk Score (25-44 pts). Fall prevention measures have been instituted. Side Rails Up X 2 Placed close to Nursing Station Frequent Obs/Assesments occuring Family Present and informed to notify staff if they need to leave bedside As available Patient and Family Educated on Fall Prevention Program and strategies. Assessment: 18:04 General: Appears in no apparent distress. comfortable, Behavior is calm, cooperative, mb9 appropriate for age. Pain: Complains of pain in left knee Pain does not radiate. Pain currently is 8 out of 10 on a pain scale. Quality of pain is described as aching, Pain began suddenly. Neuro: Estrada Agitation-Sedation Scale (RASS): 0 - Alert and Calm Level of Consciousness is awake, alert, obeys commands, Oriented to person, place, time, situation, Appropriate for age. Cardiovascular: Heart tones S1 S2 present Rhythm is regular. Respiratory: Airway is patent Respiratory effort is even, unlabored, Respiratory pattern is regular, symmetrical, Breath sounds are clear bilaterally. GI: Abdomen is round Bowel sounds present X 4 quads. : No signs and/or symptoms were reported regarding the genitourinary system. EENT: No signs and/or symptoms were reported regarding the EENT system. Derm: Skin is intact, Skin is dry, Skin is pale, Skin temperature is cool. Musculoskeletal: Range of motion: limited in left knee. 19:20 General: Appears comfortable, Behavior is calm, cooperative. Pain: Complains of pain in ha1 left knee Pain does not radiate. Pain currently is 3 out of 10 on a pain scale. Neuro: Level of Consciousness is awake, alert, Oriented to person, place, time, situation. Cardiovascular: Heart tones S1 S2 present Patient's skin is warm and dry. Respiratory: Airway is patent Respiratory effort is even, unlabored, Respiratory pattern is regular, symmetrical. GI: Abdomen is round non-distended. GI: No signs and/or symptoms were reported involving the gastrointestinal system. EENT: No deficits noted. No signs and/or symptoms were reported regarding the EENT system. Derm: Skin is pink, warm \T\ dry. Musculoskeletal: Range of motion: limited in left leg. Vital Signs: 17:42 BP 109 / 61; Pulse 68; Resp 18; Temp 97.1; Pulse Ox 100% ; Weight 107.95 kg; Height 5 mb9 ft. 3 in. (160.02 cm); Pain 10/10; 18:50 BP 140 / 72; Pulse 68; Resp 18; Pulse Ox 95% on R/A; Pain 5/10; mb9 19:20 BP 147 / 79; Pulse 69; Resp 19 S; Pulse Ox 95% on R/A; ha1 17:42 Body Mass Index 42.16 (107.95 kg, 160.02 cm) mb9 NIH Stroke Scale Scores: 18:24 NIHSS Score: 0 [facility] ED Course: 17:34 Patient arrived in ED. amdy 17:34 Rodriguez Berry MD is Attending Physician. mady 17:34 Arm band placed on. mb9 17:42 Marium Vargas RN is Primary Nurse. mb9 17:45 Triage completed. mb9 18:02 Knee Left 3 View XRAY In Process Unspecified. EDMS 18:02 Femur Right XRAY In Process Unspecified. EDMS 18:10 Inserted saline lock: 20 gauge in left EJ, using aseptic technique. ,using aseptic mb9 technique. done by Dr. Berry Blood collected. 18:21 PT-INR Sent. mb9 18:21 Basic Metabolic Panel Sent. mb9 18:21 CBC with Diff Sent. mb9 18:22 Type And Screen Sent. mb9 18:22 BNP Sent. mb9 18:22 Troponin High Sensitivity Sent. mb9 19:20 Patient has correct armband on for positive identification. Placed in gown. Bed in low ha1 position. Call light in reach. Side rails up X 1. Adult w/ patient. 19:21 Abiel Dudley MD is Referral Physician. mady 19:21 Luis Reveles MD is Referral Physician. mady 20:11 No provider procedures requiring assistance completed. IV discontinued, intact, ha1 bleeding controlled, No redness/swelling at site. Pressure dressing applied. Administered Medications: 18:21 Drug: NS 0.9% 500 ml Route: IV; Rate: bolus; Site: left jugular; mb9 18:21 Drug: morphine 2 mg Route: IVP; Infused Over: 4 mins; Site: left jugular; mb9 18:21 Drug: Zofran (Ondansetron) 4 mg Route: IVP; Site: left jugular; mb9 Medication: 20:13 VIS not applicable for this client. ha1 Outcome: 19:22 Discharge ordered by . mady 20:11 Discharged to intermediate. leaving with family member ha1 20:11 Condition: stable 20:11 Discharge instructions given to patient, family, Instructed on discharge instructions, follow up and referral plans. medication usage, Demonstrated understanding of instructions, follow-up care, medications, Prescriptions given X 1. 20:13 Patient left the ED. ha1 NIH Stroke Scale - NIH Stroke Score Date: 04/02/2022 Time: 18:24 Total Score = 0 1a. Level of Consciousness (LOC) - 0(Alert) 1b. Level of Consciousness (LOC) (Month \T\ Age) - 0(Both) 1c. LOC Commands (Open \T\ Closes Eyes/Sheeter Waxer Operator) - 0(Both) 2. Best Gaze (Lateral Gaze Paresis) - 0(Normal) 3. Visual Field Loss - 0(No visual loss) 4. Facial Palsy - 0(Normal) 5a. Left Arm: Motor (10-second hold) - 0(No drift) 5b. Right Arm: Motor (10-second hold) - 0(No drift) 6a. Left Leg: Motor (5-second hold - always test supine) - 0(No drift) 6b. Right Leg: Motor (5-second hold - always test supine) - 0(No drift) 7. Limb Ataxia (finger/nose \T\ heel/aguirre - test with eyes open) - 0(Absent) 8. Sensory Loss (pinprick arms/legs/face) - 0(Normal) 9. Best Language: Aphasia (description/naming/reading) - 0(No aphasia) 10. Dysarthria (speech clarity - read or repeat words) - 0(Normal) 11. Extinction and Inattention (visual/tactile/auditory/spatial/personal) - 0(No abnormality) Initials: mady Signatures: Dispatcher [employer] Rodriguez Chong MD MD cha Ayala, Heidy, RN RN ha1 Marium Vargas RN RN mb9
--- NOTE | 2022-04-02 19:22 | EDPHYS ---
Physician Documentation [facility] Name: Agnes Calabrese Age: 82 yrs Sex: Female : 1940 Arrival Date: 04/02/2022 Time: 17:34 Bed 6 Private MD: FIONA Physician Rodriguez Berry HPI: 04/02 18:24 This 82 yrs old Female presents to ER via EMS with complaints of fall left mady knee pain. 18:24 The patient presents with a deformity, pain, that is acute. The complaints affect the mady left knee. Context: The problem was sustained at home, resulted from the patient falling. Onset: The symptoms/episode began/occurred just prior to arrival. Modifying factors: The symptoms are alleviated by nothing. the symptoms are aggravated by nothing. Associated signs and symptoms: Pertinent positives: weakness. weak in general, lost balance. Onset: The symptoms/episode began/occurred today. Severity of symptoms: At their worst the symptoms were mild in the emergency department the symptoms are unchanged. Historical: - Allergies: 17:45 clindamycin HCl (bulk); mb9 17:45 Darvocet-N 100; mb9 17:45 PENICILLINS; mb9 17:45 Strawberries; mb9 17:45 Sulfa (Sulfonamide Antibiotics); mb9 - Home Meds: 17:45 duloxetine 60 mg Oral cpDR 2 caps once daily [Active]; mb9 - PMHx: 17:45 AFIB; lymphedema; COPD; Depression; Fibromyalgia; GERD; Hyperlipidemia; Hypothyroidism; mb9 Alzheimer's disease; left breast cancer; Hypertension; - PSHx: 17:45 Total abdominal hysterectomy; Spinal Fusion; Bilateral Knee Replacement; Mastectomy; mb9 Appendectomy; - Immunization history:: Adult Immunizations up to date. - Social history:: Smoking status: Patient reports the use of cigarette tobacco products, Patient/guardian denies using tobacco, but has a distant history of tobacco abuse. - Family history:: not pertinent. ROS: 18:24 Constitutional: Negative for fever, chills, and weight loss, Eyes: Negative for injury, mady pain, redness, and discharge, ENT: Negative for injury, pain, and discharge, Neck: Negative for injury, pain, and swelling, Cardiovascular: Negative for chest pain, palpitations, and edema, Respiratory: Negative for shortness of breath, cough, wheezing, and pleuritic chest pain, Abdomen/GI: Negative for abdominal pain, nausea, vomiting, diarrhea, and constipation, Back: Negative for injury and pain, : Negative for injury, bleeding, discharge, and swelling, Skin: Negative for injury, rash, and discoloration, Neuro: Negative for headache, weakness, numbness, tingling, and seizure. 18:24 MS/extremity: Positive for decreased range of motion, pain, tenderness, of the left knee. Exam: 18:24 Constitutional: This is a well developed, well nourished patient who is awake, alert, mady and in no acute distress. Head/Face: Normocephalic, atraumatic. Eyes: Pupils equal round and reactive to light, extra-ocular motions intact. Lids and lashes normal. Conjunctiva and sclera are non-icteric and not injected. Cornea within normal limits. Periorbital areas with no swelling, redness, or edema. ENT: Nares patent. No nasal discharge, no septal abnormalities noted. Tympanic membranes are normal and external auditory canals are clear. Oropharynx with no redness, swelling, or masses, exudates, or evidence of obstruction, uvula midline. Mucous membranes moist. Neck: Trachea midline, no thyromegaly or masses palpated, and no cervical lymphadenopathy. Supple, full range of motion without nuchal rigidity, or vertebral point tenderness. No Meningismus. Chest/axilla: Normal chest wall appearance and motion. Nontender with no deformity. No lesions are appreciated. Cardiovascular: Regular rate and rhythm with a normal S1 and S2. No gallops, murmurs, or rubs. Normal PMI, no JVD. No pulse deficits. Respiratory: Lungs have equal breath sounds bilaterally, clear to auscultation and percussion. No rales, rhonchi or wheezes noted. No increased work of breathing, no retractions or nasal flaring. Abdomen/GI: Soft, non-tender, with normal bowel sounds. No distension or tympany. No guarding or rebound. No evidence of tenderness throughout. Back: No spinal tenderness. No costovertebral tenderness. Full range of motion. Skin: Warm, dry with normal turgor. Normal color with no rashes, no lesions, and no evidence of cellulitis. Neuro: Awake and alert, GCS 15, oriented to person, place, time, and situation. Cranial nerves II-XII grossly intact. Motor strength 5/5 in all extremities. Sensory grossly intact. Cerebellar exam normal. Normal gait. Psych: Awake, alert, with orientation to person, place and time. Behavior, mood, and affect are within normal limits. 18:24 Musculoskeletal/extremity: ROM: limited active range of motion due to pain, limited passive range of motion due to pain, in the left knee, Circulation is intact in all extremities. Sensation intact. Compartment Syndrome exam of affected extremity: is normal. DVT Exam: no swelling, negative Homans' sign noted on exam, no appreciated bluish discoloration, no erythema, no increased warmth, pain, tenderness. 18:34 ECG was reviewed by the Attending Physician. mady 18:35 ECG was reviewed by the Attending Physician. mady 19:16 Musculoskeletal/extremity: no laceration, negative ced, stable. [facility] Vital Signs: 17:42 BP 109 / 61; Pulse 68; Resp 18; Temp 97.1; Pulse Ox 100% ; Weight 107.95 kg; Height 5 mb9 ft. 3 in. (160.02 cm); Pain 10/10; 18:50 BP 140 / 72; Pulse 68; Resp 18; Pulse Ox 95% on R/A; Pain 5/10; mb9 19:20 BP 147 / 79; Pulse 69; Resp 19 S; Pulse Ox 95% on R/A; ha1 17:42 Body Mass Index 42.16 (107.95 kg, 160.02 cm) mb9 NIH Stroke Scale Scores: 18:24 NIHSS Score: 0 mady Procedures: 18:28 Peripheral line: by aseptic technique a peripheral line was placed in the left foot mady vein. MDM: 17:34 Patient medically screened. mady 18:28 Differential diagnosis: dislocation, closed fracture, contusion, tendonitis. Data mady reviewed: vital signs, nurses notes, lab test result(s), EKG, radiologic studies, plain films. Data reviewed: EMS record. Data interpreted: quality assurance monitor body: rate is 68 beats/min, rhythm is regular, Pulse oximetry: on room air is 100 %. Test interpretation: by ED physician or midlevel provider: ECG, plain radiologic studies. Counseling: I had a detailed discussion with the patient and/or guardian regarding: the historical points, exam findings, and any diagnostic results supporting the discharge/admit diagnosis, lab results, radiology results, the need for outpatient follow up, for definitive care, a metallurgical engineering technician, a family practitioner. 04/02 17:36 Order name: Basic Metabolic Panel; Complete Time: 18:58 [facility] 04/02 17:36 Order name: CBC with Diff; Complete Time: 18:58 [facility] 04/02 17:36 Order name: Type And Screen 04/02 17:36 Order name: PT-INR; Complete Time: 18:58 [facility] 04/02 18:15 Order name: Troponin High Sensitivity; Complete Time: 19:21 [facility] 04/02 18:15 Order name: BNP; Complete Time: 19:21 [facility] 04/02 17:36 Order name: Labs collected and sent; Complete Time: 18:21 [facility] 04/02 17:36 Order name: Knee Left 3 View XRAY; Complete Time: 18:58 [facility] 04/02 17:36 Order name: Femur Right XRAY; Complete Time: 18:58 [facility] 04/02 18:15 Order name: EKG; Complete Time: 18:16 mady 04/02 18:15 Order name: EKG - Nurse/Tech; Complete Time: 18:35 [facility] 04/02 18:15 Order name: Knee Immobilizer; Complete Time: 19:51 [facility] 04/02 18:35 Order name: EKG - Nurse/Tech: repeat; Complete Time: 18:35 aa5 EC:34 Rate is 62 beats/min. Rhythm is regular. QRS [place] is Normal. MD interval is normal. QRS mady interval is normal. QT interval is normal. No Q waves. T waves are Normal. Clinical impression: Abnormal EKG without significant change and No evidence of ischemia. Interpreted by me. Reviewed by me. 18:35 Rate is 62 beats/min. Rhythm is regular. QRS [place] is Normal. MD interval is prolonged mady at 238 msec. QRS interval is normal. QT interval is normal. No Q waves. T waves are Normal. No ST changes noted. Clinical impression: Abnormal EKG without significant change and No evidence of ischemia. Interpreted by me. Reviewed by me. Administered Medications: 18:21 Drug: NS 0.9% 500 ml Route: IV; Rate: bolus; Site: left jugular; mb9 18:21 Drug: morphine 2 mg Route: IVP; Infused Over: 4 mins; Site: left jugular; mb9 18:21 Drug: Zofran (Ondansetron) 4 mg Route: IVP; Site: left jugular; mb9 Disposition Summary: 04/02/22 19:22 Discharge Ordered Location: Home mady Problem: new mady Symptoms: have improved mady Condition: Stable mady Diagnosis - Fall on same level, unspecified mady - Pain in left knee mady - Obesity, unspecified mady - Weakness mady Followup: mady - With: Private Physician - When: 2 - 3 days - Reason: Recheck today's complaints, Continuance of care, Re-evaluation by your physician Followup: mady - With: - When: 2 - 3 days - Reason: Recheck today's complaints, Re-evaluation by your physician Followup: mady - With: - When: 2 - 3 days - Reason: Recheck today's complaints, Re-evaluation by your physician Discharge Instructions: - Discharge Summary Sheet mady - Joint Pain mady - How to Use a Knee Brace mady - Musculoskeletal Pain mady - Obesity, Adult mady - Acute Knee Pain, Adult mady - How to Use Cold Therapy, Ypqp-kv-Evdy mady - How to Use Cold Therapy mady - Joint Pain, Coey-vx-Julp mady - Obesity, Adult, Srpz-br-Hvbv mady Forms: - Medication Reconciliation Form mady - Thank You Letter mady - Antibiotic Education mady - Prescription Opioid Use mady - SBAR form ha1 Prescriptions: - Tylenol-Codeine #3 300 mg-30 mg Oral - take 2 tablet by ORAL route every 6 hours; 20 tablet; Refills: 0, Product mady Selection Permitted NIH Stroke Scale - NIH Stroke Score Date: 04/02/2022 Time: 18:24 Total Score = 0 1a. Level of Consciousness (LOC) - 0(Alert) 1b. Level of Consciousness (LOC) (Month \T\ Age) - 0(Both) 1c. LOC Commands (Open \T\ Closes Eyes/Aircraft Landing Gear Inspector) - 0(Both) 2. Best Gaze (Lateral Gaze Paresis) - 0(Normal) 3. Visual Field Loss - 0(No visual loss) 4. Facial Palsy - 0(Normal) 5a. Left Arm: Motor (10-second hold) - 0(No drift) 5b. Right Arm: Motor (10-second hold) - 0(No drift) 6a. Left Leg: Motor (5-second hold - always test supine) - 0(No drift) 6b. Right Leg: Motor (5-second hold - always test supine) - 0(No drift) 7. Limb Ataxia (finger/nose \T\ heel/aguirre - test with eyes open) - 0(Absent) 8. Sensory Loss (pinprick arms/legs/face) - 0(Normal) 9. Best Language: Aphasia (description/naming/reading) - 0(No aphasia) 10. Dysarthria (speech clarity - read or repeat words) - 0(Normal) 11. Extinction and Inattention (visual/tactile/auditory/spatial/personal) - 0(No abnormality) Initials: mady Signatures: Dispatcher [employer] EDRodriguez Solis MD MD cha Calderon, Audri, RN RN aa5 Marium Vargas, RN RN mb9
[2022-04-02 20:33] VITALS: TEMP 97.1
[2022-04-02 20:39] VITALS: O2SAT 95
[2022-04-02 20:40] VITALS: BP 147/79
--- NOTE | 2022-04-03 08:02 | EKG ---
Test Date: 2022-04-02 Test Time: 18:31:55 [employer] Instructor: KALEIGH MEASUREMENT RESULTS: Intervals: Rate: 62 UT: 238 QRSD: 106 QT: 462 QTc: 468 [place]: P: 74 UT: 238 QRS: 105 T: 74 INTERPRETIVE STATEMENTS: Sinus rhythm with 1st degree AV block Rightward axis Nonspecific ST and T wave abnormality Abnormal ECG Compared to ECG 02/10/2022 15:04:42 Right-axis deviation now present Possible ischemia no longer present ST (T wave) deviation still present Electronically Signed On 04-03-22 08:01:41 [employer] by Luis Reveles
== END 2022-04-02 20:13 | disposition home or self-care (01) ==
LOC: ER 17:27
DX: M25.562 Pain in left knee (principal); R53.1 Weakness; E66.9 Obesity, unspecified; W18.30XA Fall on same level, unspecified, initial encounter; F02.80 Dementia in other diseases classified elsewhere, unspecified severity, without behavioral disturbance, psychotic disturbance, mood disturbance, and anxiety; I10 Essential (primary) hypertension; J44.9 Chronic obstructive pulmonary disease, unspecified; Z88.0 Allergy status to penicillin; Z88.2 Allergy status to sulfonamides; Z88.3 Allergy status to other anti-infective agents; Z88.5 Allergy status to narcotic agent; Z91.018 Allergy to other foods; I48.91 Unspecified atrial fibrillation
CPT/HCPCS: 85025; 80048; 36415; 86900; 86850; 85610; 86901; 84484; 83880; 73562; 73552; J2270; J7040; J2405; 93005

== ENCOUNTER 2022-11-20 12:38 | Inpatient (IN) | payer OTHER ==
--- OUTSIDE RECORDS SUMMARY | 2022-11-20 12:48 | XMS REPORT | Continuity of Care Document ---
:[address] [facility] t Address [address] [place] [address] Care Team Providers Name Role Phone Garrett Dougherty MD Primary Care Physician Amadou Linda Attending Clinician Unavailable Kenia Torres Attending Clinician Unavailable [id number] Attending Clinician Unavailable DOMINIQUE SMITH Attending Clinician Unavailable Chin Pat Attending Clinician Doctor Unassigned, [place] Attending Clinician Unavailable Jonathon Batista Attending Clinician LAURA MANCILLA Attending Clinician Unavailable Laura Mancilla MD Attending Clinician Joe HOLT, Perfecto Mckeon Attending Clinician [phone] Dominique Smith MD Attending Clinician [phone] Bishnu HOLT, Arielle George Attending Clinician Shelton Ferreira MD Attending Clinician Renan Canela MD Attending Clinician Kenia Torres Admitting Clinician Unavailable Garrett Dougherty V Admitting Clinician Unavailable [id number] Admitting Clinician Unavailable DOMINIQUE SMITH Admitting Clinician Unavailable ARIELLE GOETZ Admitting Clinician Unavailable Payers Payer Name Policy Type Policy Number Effective Date Expiration Date S ource Problems Condition Condition Condition Status Onset Resolution Last Treating Co mments Source Name Details Category Date Date Treatment Clinician Date Atrial Atrial Disease Recurre [facility] fibrillati fibrillati nce 8-16 Carol kes on with on with 00:00: Medical RVR RVR 00 Center At risk At risk Problem Active 2022-11-07 Me moria for falls for falls 5- 14:06:17 l (finding) (finding) 00:00: Herm quynh Active 00 08/19/2016 Problem 11/07/2022 [facility] Hallucinat Hallucina Problem Active 2022-11-07 Memoria ions tions 5-02 14:06:17 l (finding) (finding) 00:00: Herm quynh Active 00 08/19/2016 Problem 11/07/2022 [facility] Morbid Morbid Disease Active 2015-04 Univers obesity [...] Branch 40.0-49.9 40.0-49.9 Paresthesi Paresthes Problem Active 2022-11-07 Memoria a ia 4-20 14:06:17 l (finding) (finding) 00:00: Herm quynh Active 00 08/08/2015 Problem 11/07/2022 [facility] Essential Essential Problem Active 2014-042022-11-07 Memoria hypertensi hypertensi 2-16 14:06:17 l on on 00:00: [place] (disorder) (disorder) 00 Active 04/04/2015 Problem 11/07/2022 [facility] Essential Essential Problem Active 2014-042022-11-07 Memoria tremor tremor 2-16 14:06:17 l (disorder) (disorder) 00:00: Alex rmann Active 00 04/04/2015 Problem 11/07/2022 [facility] Carpal Carpal Problem Active 2022-11-07 [facility] tunnel tunnel 14:06:17 l syndrome syndrome Chucho n (disorder) (disorder) Active Problem 11/07/2022 [facility] Concussion Concussio Problem Active 2022-11-07 Memoria injury of n injury 14:06:17 l body of body [place] structure structure (disorder) (disorder) Active Problem 11/07/2022 [facility] Dementia Dementia Problem Active 2022-11-07 Memoria (disorder) (disorder) 14:06:17 l Active [place] Problem 11/07/2022 [facility] Depressive Depressiv Problem Active 2022-11-07 Memoria disorder e disorder 14:06:17 l (disorder) (disorder) Alex rmann Active Problem 11/07/2022 [facility] Fibromyalg Fibromyal Problem Active 2022-11-07 Memoria ia amanda 14:06:17 l (disorder) (disorder) Alex rmann Active Problem 11/07/2022 [facility] Gout Gout Problem Active 2022-11-07 Memor ia (disorder) (disorder) 14:06:17 l Active [place] Problem 11/07/2022 [facility] Headache Headache Problem Active 2022-11-07 Memoria (finding) (finding) 14:06:17 l Active [place] Problem 11/07/2022 [facility] Hyperlipid Hyperlipi Problem Active 2022-11-07 Memoria emia demia 14:06:17 l (disorder) (disorder) He rmann Active Problem 11/07/2022 [facility] Polymyalgi Polymyalg Problem Active 2022-11-07 Memoria a ia 14:06:17 l rheumatica rheumatica He rmann (disorder) (disorder) Active Problem 11/07/2022 [facility] Recurrent Recurrent Problem Active 2022-11-07 Memoria falls falls 14:06:17 l (finding) (finding) Herm quynh Active Problem 11/07/2022 [facility] Syncope Syncope Problem Active 2022-11-07 M emoria (disorder) (disorder) 14:06:17 l Active [place] Problem 11/07/2022 [facility] Transient Transient [facility] ischemic 14:06:17 l attack attack [place] (disorder) (disorder) Active Problem 11/07/2022 [facility] Spinal Spinal Problem Active 2022-11-07 [facility] stenosis stenosis 14:06:17 l in in [place] cervical cervical region region (disorder) (disorder) Active Problem 11/07/2022 [facility] CINTHIA CINTHIA Disease Active [facility] (obstructi (obstructi Carol kes ve sleep ve sleep Medica l apnea) apnea) Center [id number] Status Problem Common post total Spirit replacemen - [facility] t of right [facility] [id number] Pain, Problem Commo n [id number] joint, [facility] shoulder, - [facility] [id number] Pain, Problem Commo n [id number] joint, [facility] ankle, - [facility] [id number] Injury of Problem Com mon left knee, [facility] initial - [facility] encounter [facility] [id number] Closed Problem Common Colles' [facility] Center [id number] Status Problem Commo n 105 post total Spirit left knee - [facility] replacemen [facility] [id number] Closed Problem Common displaced Spirit fracture - [facility] of lateral malleolus [facility] of left Medical fibula, Center initial encounter [id number] Acute pain Problem Com mon of right [facility] shoulder - [facility] Tremor Tremor Problem Resolve 2017-0 2021-09-27 2021-09-27 Memoria (finding) (finding) d 5- 04:45:19 04:45:19 l Resolved 00:00: [place] 08/19/2016 00 Problem 09/27/2021 [facility] Amnesia Amnesia Problem Resolve 2014-042021-09-27 2021-09-27 Memoria (finding) (finding) d 2-16 04:45:19 04:45:19 l Resolved 00:00: [place] 04/04/2015 00 Problem 09/27/2021 [facility] Allergies, Adverse Reactions, Alerts Allergy Allergy Status Severity Reaction(s) Onset Inactive Treating Comm ents Source Name Type Date Date Clinician Penicill DA Active SV RASH-RAISED 2022-0 [facility] ins 3-15 [place] 00:00: d 00 [facility] Sulfa DA Active SV RASH-RAISED 2022-0 [facility] (Sulfona 3-15 [place] mide 00:00: d Antibiot 00 Medical ics) [place] propoxyp DA Active MO HALLUCINATIO 2022-0 HC A hene NS 3-15 [place] 00:00: d 00 [facility] acetamin DA Active MO HALLUCINATIO 2022-0 HC A ophen NS 3-15 [place] 00:00: d 00 [facility] clindamy DA Active MO RASH-RAISED 3-0 [facility] jose 3-15 [place] 00:00: d 00 [facility] Strawber Propensi Active Rash 1-[address] [facility] ry ty to 8-17 [facility] adverse 00:00: Medical reaction 00 Center s STRAWBER Allergy Active Low Rash 1-[address] [facility] RY 8-17 [facility] 00:[facility]: Medical 00 Center Clindamy Propensi Active Rash 1-[address] jose Hcl ty to 8-16 [facility] adverse 00:00: Medical reaction 00 Center s Penicill Propensi Active Rash 1-[address] in ty to 8-16 [facility] adverse 00:00: Medical reaction 00 Center s Sulfa Propensi Active Rash 1-[address] (Sulfona ty to 8-16 [facility] mide adverse 00:00: Medical Antibiot reaction 00 Center ics) s CLINDAMY Allergy Active High Rash 1-[address] [facility] JOSE HCL 8-16 [facility] 00:00: Medical 00 Center PENICILL Allergy Active High Rash 1-[address] [facility] IN 8-16 [facility] 00:00: Medical 00 Center SULFA Allergy Active High Rash 2020-[address] [facility] (SULFONA 8-16 [facility] MIDE 00:00: Medical ANTIBIOT 00 Center ICS) Sulfa Propensi Active Rash 2020-[address] (Sulfona ty to 8-16 [facility] mide adverse 00:00: Medical Antibiot reaction 00 Center ics) s Clindamy Propensi Active Unknown 2020-0 Metho di jose ty to Reaction [address] Phosphat adverse 00:00: Hospita e reaction [...] [place] inophen reaction 00 Medical s Branch Penicill Propensi Active Unknown 2020-0 Metho di [...] reaction 00 Medica l ics) s Branch penicill penicill Active Memori a ins ins l [place] sulfa sulfa Active Memoria drugs drugs l [place] 6296 Drug Active Unknown Common allergy [facility] clindamy clindamy Active Unknown Commo n jose jose [facility] penicill penicill Active Unknown Commo n in G in G [facility] Family History Family Member Diagnosis Comments Start Date Stop Date Source Natural mother Asthma [facility] Natural father Diabetes [facility] Natural father Heart disease [facility] Natural father Hypertension [facility] Social History Social Habit Start Date Stop Date Quantity Comments Source History SDOH [facility] Alcohol Comment Medical C enter Gender identity [facility] Sexual orientation [facility] Alcohol Std Drinks Medica l Center History SDOH [facility] Alcohol Binge Medical Dagoberto ter History of Tobacco Common Spirit - Use [facility] Exposure to 2021-06-24 2021-07-24 Not sure [facility] of SARS-CoV-2 (event) 00:00:00 14:26:00 [facility] History SDOH 2020-12-04 2020-12-[address] [facility] [facility] Alcohol Frequency 00:00:00 00:00:00 [facility] Alcohol intake 2020-12-03 2020-12-[address] [facility] es 00:00:00 00:00:00 non-drinker Medical Daisy man (finding) Cigarettes smoked 2019-10-18 2019-10-[address] current (pack per 00:00:00 00:00:00 Hospita l day) - Reported Cigarette 2019-10-18 2019-10-18 [facility] pack-years 00:00:00 00:00:00 Hospital History of Social 2019-10-18 2019-10-[address] function 00:00:00 00:00:00 Hospital Tobacco use and 2019-10-18 2019-10-18 Smokeless [facility]ational exposure 00:00:00 00:00:00 tobacco non-user Hospital Sex Assigned At [address] [facility] kes 00:00:00 00:00:00 Medical Center Smoking Status Start Date Stop Date Source Tobacco smoking status 2022-11-04 18:09:07 2022-11-04 18:09:07 [facility] [place] Never Smoker Common [facility] nter Medications Ordered Filled Start Stop Current Ordering Indication Dosage Frequency Signature Comments Components Source Medication Medication Date Date Medication? Clinician (SIG) Name Name donepezil 5 Yes 5 mg = 1 Me moria mg oral 7-18 tab, PO, l tablet 18:49: Bedtime, # Ela nn 00 90 tab, 1 Refill(s), Pharmacy: [facility], 154.94, cm, 11/27/20 15:33:00 CDT, Height, 93.75, kg, 11/27/20 15:33:00 CDT, Weight temazepam Yes TAKE ONE Johan manish 15 mg oral 7-18 (1) l capsule 18:33: CAPSULE(S) Herm quynh 00 BY MOUTH AT BEDTIME. pantoprazol Yes TAKE ONE Me moria e 40 mg 7-18 (1) l oral 18:33: TABLET(S) [place] enteric 00 BY MOUTH coated EVERY tablet MORNING. Vitamin B12 Yes 1,000 Memor ia 1000 mcg 7-18 microgram l oral tablet 18:33: = 1 tab, He rmann 00 PO, Daily, # 30 tab, 0 Refill(s) Vitamin D3 Yes 0 Memoria 7-18 Refill(s) l 18:33: [place] 00 Pataday 0 Yes Daily, 0 Memori a 7-18 Refill(s) l 18:32: [place] 00 topiramate Yes 100 mg = 1 M emoria 100 mg oral 2-24 tab, PO, l tablet 21:01: BID, # 180 Ela nn 00 tab, 2 Refill(s), Pharmacy: [facility] #[id number], 154.94, cm, 11/27/20 15:33:00 CDT, Height, 93.75, kg, 11/27/20 15:33:00 CDT, Weight memantine 0 Yes = 1 tab, Johan manish 10 mg oral 2-24 PO, BID, # l tablet 21:01: 180 tab, 2 Ela nn 00 Refill(s), Pharmacy: [facility] cy #[id number], 154.94, cm, 11/27/20 15:33:00 CDT, Height, 93.75, kg, 11/27/20 15:33:00 CDT, Weight Bupivicaine Bupivicaine 2-0 No 2.5mg Common [place] Burnside 8-10 Spirit 00:00: - CHI 00 [facility] Kenalog Kenalog 2-0 No 40mg Common (Triamcinol (Triamcinol 8-10 S pirit one) one) 00:00: - CHI 00 [facility] Bupivicaine Bupivicaine 2-0 No 2.5mg Common [place] Burnside 8-10 Spirit 00:00: - CHI 00 [facility] Kenalog Kenalog 2-0 No 40mg Common (Triamcinol (Triamcinol 8-10 S pirit one) one) 00:00: - CHI 00 [facility] Bupivicaine Bupivicaine 2-0 No 2.5mg Common [place] Burnside 8-10 Spirit 00:00: - CHI 00 [facility] Kenalog Kenalog 2-0 No 40mg Common (Triamcinol (Triamcinol 8-10 S pirit one) one) 00:00: - CHI 00 [facility] Bupivicaine Bupivicaine 2-0 No 2.5mg Common [place]side Burnside 8-10 Spirit 00:00: - CHI 00 [facility] Kenalog Kenalog 2-0 No 40mg Common (Triamcinol (Triamcinol 8-10 S pirit one) one) 00:00: - CHI 00 [facility] Bupivicaine Bupivicaine 2-0 No 2.5mg Common Burnside Burnside 8-10 Spirit 00:00: - CHI 00 [facility] Kenalog Kenalog 2-0 No 40mg Common (Triamcinol (Triamcinol 8-10 S pirit one) one) 00:00: - CHI 00 [facility] Kenalog Kenalog 2-0 No 40mg Common (Triamcinol (Triamcinol 8-10 S pirit one) one) 00:00: - CHI 00 [facility] Bupivicaine Bupivicaine 2021-0 No 2.5mg Common Burnside Burnside 8-10 Spirit 00:00: - [facility]I 00 [facility] topiramate 2021-0 Yes 100 mg = 1 M emoria 100 mg oral 5-19 tab, PO, l tablet 23:43: BID, # 180 Ela nn 00 tab, 2 Refill(s), Pharmacy: [facility], 154.94, cm, 11/27/20 15:33:00 CDT, Height, 93.75, kg, 11/27/20 15:33:00 CDT, Weight topiramate 2021-0 Yes 100 mg = 1 M emoria 100 mg oral 5-19 tab, PO, l tablet 23:43: BID, # 180 Ela nn 00 tab, 2 Refill(s), Pharmacy: [facility], 154.94, cm, 11/27/20 15:33:00 CDT, Height, 93.75, kg, 11/27/20 15:33:00 CDT, Weight topiramate 2021-0 Yes 100 mg = 1 M emoria 100 mg oral 5-19 tab, PO, l tablet 23:43: BID, # 180 Ela nn 00 tab, 2 Refill(s), Pharmacy: [facility], 154.94, cm, 11/27/20 15:33:00 CDT, Height, 93.75, kg, 11/27/20 15:33:00 CDT, Weight topiramate 2021-0 Yes 100 mg = 1 M emoria 100 mg oral 5-19 tab, PO, l tablet 23:43: BID, # 180 Ela nn 00 tab, 2 Refill(s), Pharmacy: [facility], 154.94, cm, 11/27/20 15:33:00 CDT, Height, 93.75, kg, 11/27/20 15:33:00 CDT, Weight memantine 2021-0 Yes = 1 tab, Johan manish 10 mg oral 5-19 PO, BID, # l tablet 23:42: 180 tab, 2 Ela nn 00 Refill(s), Pharmacy: [facility], 154.94, cm, 11/27/20 15:33:00 CDT, Height, 93.75, kg, 11/27/20 15:33:00 CDT, Weight memantine Yes = 1 tab, Johan manish 10 mg oral 5-19 PO, BID, # l tablet 23:42: 180 tab, 2 Ela nn 00 Refill(s), Pharmacy: [facility], 154.94, cm, 11/27/20 15:33:00 CDT, Height, 93.75, kg, 11/27/20 15:33:00 CDT, Weight memantine Yes = 1 tab, Johan manish 10 mg oral 5-19 PO, BID, # l tablet 23:42: 180 tab, 2 Ela nn 00 Refill(s), Pharmacy: [facility], 154.94, cm, 11/27/20 15:33:00 CDT, Height, 93.75, kg, 11/27/20 15:33:00 CDT, Weight memantine Yes = 1 tab, Johan manish 10 mg oral 5-19 PO, BID, # l tablet 23:42: 180 tab, 2 Ela nn 00 Refill(s), Pharmacy: [facility], 154.94, cm, 11/27/20 15:33:00 CDT, Height, 93.75, kg, 11/27/20 15:33:00 CDT, Weight Flecainide No 50 mg = 1 Me moria Acetate 50 1-04 tab, PO, l MG Oral 22:34: Q12H, # [place] Tablet 00 180 tab, 0 [Tambocor] Refill(s) Flecainide No 50 mg = 1 Me moria Acetate 50 1-04 tab, PO, l MG Oral 22:34: Q12H, # [place] Tablet 00 180 tab, 0 [Tambocor] Refill(s) Flecainide No 50 mg = 1 Me moria Acetate 50 1-04 tab, PO, l MG Oral 22:34: Q12H, # [place] Tablet 00 180 tab, 0 [Tambocor] Refill(s) Flecainide No 50 mg = 1 Me moria Acetate 50 1-04 tab, PO, l MG Oral 22:34: Q12H, # [place] Tablet 00 180 tab, 0 [Tambocor] Refill(s) Eliquis 5 Yes 5 mg, PO, Mem oria mg oral 04-23 Q12H, tab, l tablet 22:33: 0 [place] 00 Refill(s) SEROquel Yes See Memoria 100 mg oral 04-23 Instructio l tablet 22:33: ns, 04/23 [place] 00 tab PO Daily, 0 Refill(s) apixaban 5 Yes 5 mg, PO, Me moria MG Oral 04-23 Q12H, tab, l Tablet 22:33: 0 [place] [Eliquis] 00 Refill(s) Furosemide Yes 20 mg = 1 Me moria 20 MG Oral 04 tab, PO, l Tablet 22:33: Daily, # [place] [Lasix] 00 30 tab, 0 Refill(s) quetiapine Yes 100 mg = 1 M emoria 100 MG Oral 04-23 tab, PO, l Tablet 22:33: Daily, 0 [place] [Seroquel] 00 Refill(s) apixaban 5 0 Yes 5 mg, PO, Me moria MG Oral 04-23 Q12H, tab, l Tablet 22:33: 0 [place] [Eliquis] 00 Refill(s) Furosemide Yes 20 mg = 1 Me moria 20 MG Oral 04 tab, PO, l Tablet 22:33: Daily, # [place] [Lasix] 00 30 tab, 0 Refill(s) quetiapine Yes 100 mg = 1 M emoria 100 MG Oral 04-23 tab, PO, l Tablet 22:33: Daily, 0 [place] [Seroquel] 00 Refill(s) apixaban 5 0 Yes 5 mg, PO, Me moria MG Oral 04-23 Q12H, tab, l Tablet 22:33: 0 [place] [Eliquis] 00 Refill(s) Furosemide Yes 20 mg = 1 Me moria 20 MG Oral -04 tab, PO, l Tablet 22:33: Daily, # [place] [Lasix] 00 30 tab, 0 Refill(s) quetiapine Yes 100 mg = 1 M emoria 100 MG Oral 1-04 tab, PO, l Tablet 22:33: Daily, 0 [place] [Seroquel] 00 Refill(s) Eliquis 5 Yes 5 mg, PO, Mem oria mg oral 1-04 Q12H, tab, l tablet 22:33: 0 [place] 00 Refill(s) SEROquel Yes See Memoria 100 mg oral 04-23 Instructio l tablet 22:33: ns, 04/23 [place] 00 tab PO Daily, 0 Refill(s) Eliquis 5 Yes 5 mg, PO, Mem oria mg oral 1-04 Q12H, tab, l tablet 22:33: 0 [place] 00 Refill(s) SEROquel Yes See Memoria 100 mg oral 04-23 Instructio l tablet 22:33: ns, 04/23 [place] 00 tab PO Daily, 0 Refill(s) apixaban 5 Yes 5 mg, PO, Me moria MG Oral - Q12H, tab, l Tablet 22:33: 0 [place] [Eliquis] 00 Refill(s) Furosemide Yes 20 mg = 1 Me moria 20 MG Oral -04 tab, PO, l Tablet 22:33: Daily, # [place] [Lasix] 00 30 tab, 0 Refill(s) quetiapine Yes 100 mg = 1 M emoria 100 MG Oral -04 tab, PO, l Tablet 22:33: Daily, 0 [place] [Seroquel] 00 Refill(s) Levofloxaci 0 Yes See Memori a n 750 MG -04 Instructio l Oral Tablet 22:32: ns, 2 tab H ermann [Levaquin] 00 PO Q24H, 0 Refill(s) Levofloxaci 0 Yes See Memori a n 750 MG 1-04 Instructio l Oral Tablet 22:32: ns, 2 tab H ermann [Levaquin] 00 PO Q24H, 0 Refill(s) Levofloxaci 0 Yes See Memori a n 750 MG [...] 2-10 inhalation l mcg-62.5 17:26: , PO, [place] mcg-25 00 Daily, # 1 mcg/inh ea, [...] 2-10 inhalation l mcg-62.5 17:26: , PO, [place] mcg-25 00 Daily, # 1 mcg/inh ea, 0 inhalation Refill(s) powder levothyroxi 2020-04 Yes 75 Memori a ne 75 mcg 2-10 microgram l (0.075 mg) 17:26: = 1 tab, Her cook oral tablet 00 PO, Daily, # 90 tab, 1 Refill(s) Trelegy 2020-04 Yes = 1 Memoria Ellipta 100 2-10 inhalation l mcg-62.5 17:26: , PO, [place] mcg-25 00 Daily, # 1 mcg/inh ea, [...] # [place] 00 180 tab, 3 Refill(s) flecainide 2020-04 Yes 50 mg = 1 Me moria 50 mg oral 2-10 tab, PO, l tablet 17:25: Q12H, # [place] 00 180 tab, 3 Refill(s) flecainide 2020-04 Yes 50 mg = 1 Me moria 50 mg oral 2-10 tab, PO, l tablet 17:25: Q12H, # [place] 00 180 tab, 3 Refill(s) flecainide 2020-04 Yes 50 mg = 1 Me moria 50 mg oral 2-10 tab, PO, l tablet 17:25: Q12H, # [place] 00 180 tab, 3 Refill(s) buPROPion Yes Univers XL 150 mg 8-26 ity of 24 hr 00:00: [place] tablet [facility] buPROPion Yes Univers XL 150 mg 8-26 ity of 24 hr 00:00: [place] tablet [facility] buPROPion Yes Univers XL 150 mg 8-26 ity of 24 hr 00:00: [place] tablet [facility] buPROPion Yes Univers XL 150 mg 8-26 ity of 24 hr 00:00: [place] tablet [facility] buPROPion Yes Univers XL 150 mg 8-26 ity of 24 hr 00:00: [place] tablet [facility] furosemide 2021- No 20mg QD Take [address] [facility] (LASIX) 20 12-10- tablet (20 Carol kes MG tablet 00:00: 23:59 mg total) Me dical 00 :00 by mouth Center daily. furosemide 2021- No 20mg QD Take [address] (LASIX) 20 -10 12-23 tablet (20 Carol kes MG tablet 00:00: 23:59 mg total) Me dical 00 :00 by mouth Center daily. furosemide 2020-2021- No 20mg QD Take [address] (LASIX) 20 8-23 08-23 tablet (20 Carol kes MG tablet 00:00: 23:59 mg total) Me dical 00 :00 by mouth Center daily. furosemide 2020-2- No 20mg QD Take [address] (LASIX) 20 8-23 08-23 tablet (20 Carol kes MG tablet 00:00: 23:59 mg total) Me dical 00 :00 by mouth Center daily. furosemide 2020-2021- No 20mg QD Take [address] (LASIX) 20 8-23 08-23 tablet (20 Carol kes MG tablet 00:00: 23:59 mg total) Me dical 00 :00 by mouth Center daily. furosemide 2020-2021- No 20mg QD Take [address] (LASIX) 20 8-23 08-23 tablet (20 Carol kes MG tablet 00:00: 23:59 mg total) Me dical 00 :00 by mouth Center daily. furosemide 2021- No 20mg QD Take [address] [facility] (LASIX) 20 8-23 08-23 tablet (20 Carol kes MG tablet 00:00: 23:59 mg total) Me dical 00 :00 by mouth Center daily. furosemide 2020-2- No 20mg QD Take [address] (LASIX) 20 8-23 08-23 tablet (20 Carol kes MG tablet 00:00: 23:59 mg total) Me dical 00 :00 by mouth Center daily. furosemide 2021- No 20mg QD Take [address] (LASIX) 20 8-23 08-23 tablet (20 Carol kes MG tablet 00:00: 23:59 mg total) Me dical 00 :00 by mouth Center daily. HYDROcodone Yes 1{tbl} Take 1 CH I [...] by mouth [facility] MG tablet 12:43: nightly. [facility] 24 Center topiramate Yes 200mg Q.5D Take [...] mouth [facility] 4 MG tablet 12:43: daily. [facility] 24 [place] fluticasone Yes QD Inhale 1 CH I [...] 24 times Center daily. gabapentin Yes 300mg Q.[id number] Take [address] (NEURONTIN) 8-22 [id number] mg by L ukes 300 MG 12:43: [...] 24 times Center daily. gabapentin Yes 300mg Q.[id number] Take [address] (NEURONTIN) 8-22 [id number] mg by L ukes 300 MG 12:43: [...] 12:43: nightly. Medical tablet 24 Center DULoxetine 0 Yes 60mg Q.5D Take [address] (CYMBALTA) 8-22 by mouth 2 Brain es 60 MG 12:43: (two) Medical capsule 24 times Center daily. gabapentin 2020-0 Yes 300mg Q.[id number] Take [address] (NEURONTIN) 8-22 [id number] mg by L ukes 300 MG 12:43: [...] mouth Medical tablet 24 nightly. Center simvastatin 2020-0 Yes 40mg QD Take 40 mg [facility]I [...] 24 times Center daily. gabapentin Yes 300mg Q.[id number] Take [address] (NEURONTIN) 8-22 [id number] mg by L ukes 300 MG 12:43: [...] night as Center needed for Insomnia. donepeziL 0 Yes 10mg QD Take [address] (ARICEPT) 8-22 by mouth [facility] 10 MG 12:43: nightly. Medical tablet 24 Center DULoxetine 0 Yes 60mg Q.5D Take [address] (CYMBALTA) 8-22 by mouth 2 Brain es 60 MG 12:43: (two) Medical capsule 24 times Center daily. gabapentin Yes 300mg Q.[id number] Take [address] (NEURONTIN) 8-22 [id number] mg by Jm dunn 300 MG 12:43: 3D mouth 3 Medical [...] mouth [facility]ukes 4 MG tablet 12:43: daily. [facility] jennifer 24 Center fluticasone Yes QD Inhale [...] 24 times Center daily. gabapentin Yes 300mg Q.[id number] Take [address] (NEURONTIN) 8-22 [id number] mg by L ukes 300 MG 12:43: [...] I St -acetaminop 8-22 tablet by Brain otto escobar (NORCO 12:43: mouth 3 Medi jennifer [...] 24 times Center daily. gabapentin Yes 300mg Q.[id number] Take [address] (NEURONTIN) 8-22 [id number] mg by L ukes 300 MG 12:43: [...] by mouth [facility]ukes MG tablet 12:43: nightly. [facility] jennifer 24 Center topiramate Yes 200mg Q.5D [...] mouth [facility]ukes 4 MG tablet 12:43: daily. [facility] 24 Center fluticasone Yes QD Inhale [address] -umeclidin- 822 Inhalation Carol kes vilanter 12:43: by mouth [...] 24 times Center daily. gabapentin Yes 300mg Q.[id number] Take [address] (NEURONTIN) 8-22 [id number] mg by L ukes 300 MG 12:43: [...] Take [address] (CYMBALTA) 822 by mouth 2 Brain es 60 MG 12:43: (two) Medical capsule 24 times Center daily. gabapentin Yes 300mg Q.[id number] Take [address] (NEURONTIN) 8- [id number] mg by L ukes 300 MG 12:43: [...] 25 MG 24 hr 24 Center tablet clopidogreL 2020-2020- No 75mg QD Take [address] (PLAVIX) 75 12-0922 by mouth Brain es mg tablet 10:48: 00:00 daily. Medic al 43 :00 Center ELIQUIS 5 0 Yes 5mg Take 5 [...] COUGH FOR UP TO 7 DAYS. apixaban 2021-0 2022- No 5mg Q.5D Take [address] (ELIQUIS) 5 8- 08-22 tablet (5 Carol kes mg Tab 00:00: 23:59 mg total) Medic al tablet 00 :00 by mouth 2 Center (two) times daily. cyanocobala 2020-0 2021- No 1000ug QD Take [address] min, 8- 08-22 tablet [facility]: 23:59 (1,000 mcg Med ical B-12, 1000 00 :00 total) by Cent [facility]CG tablet mouth daily. flecainide 2020-2021- No 50mg Take [address] [facility] (TAMBOCOR) 8- 08-22 tablet (50 Carol kes 50 MG 00:00: 23:59 mg total) Medica l tablet 00 :00 by mouth Center every 12 (twelve) hours. apixaban 2020-2021- No 5mg Q.5D Take [address] [facility] (ELIQUIS) 5 8- 08-22 tablet (5 [facility] mg Tab 00:00: 23:59 mg total) Medic al tablet 00 :00 by mouth 2 Center (two) times daily. cyanocobala 2020-0 2021- No 1000ug QD Take [address] min, 8-09 12- tablet [facility]: 23:59 (1,000 mcg Med ical B-12, 1000 00 :00 total) by Cent [facility] MCG tablet mouth daily. flecainide 2020-2021- No 50mg Take [address] [facility] (TAMBOCOR) 8- 08-22 tablet (50 Carol kes 50 MG 00:00: 23:59 mg total) Medica l tablet 00 :00 by mouth Center every 12 (twelve) hours. apixaban 2020-2021- No 5mg Q.5D Take [address] [facility] (ELIQUIS) 5 8- 08-22 tablet (5 [facility]es mg Tab 00:00: 23:59 mg total) Medic al tablet 00 :00 by mouth 2 Center (two) times daily. cyanocobala 2020-0 2021- No 1000ug QD Take [address] min, 8- 08-22 [facility] 00:[facility]: 23:59 (1,000 mcg Med ical B-12, 1000 00 :00 total) by Cent er MCG tablet mouth daily. flecainide 2020-2021- No 50mg Take [address] [facility] (TAMBOCOR) 8- 08-22 tablet (50 Carol kes 50 MG 00:00: 23:59 mg total) Medica l tablet 00 :00 by mouth Center every 12 (twelve) hours. apixaban 2020-2021- No 5mg Q.5D Take [address] [facility] (ELIQUIS) 5 8- 08-22 tablet (5 [facility] mg Tab 00:00: 23:59 mg total) Medic al tablet 00 :00 by mouth 2 Center (two) times daily. cyanocobala 2020-2021- No 1000ug QD Take [address] min, 8-09 12- [facility]: 23:59 (1,000 mcg Med ical B-12, 1000 00 :00 total) by Cent er MCG tablet mouth daily. flecainide 2020-2021- No 50mg Take [address] [facility] (TAMBOCOR) 8- tablet (50 Carol kes 50 MG 00:00: 23:59 mg total) Medica l tablet 00 :00 by mouth Center every 12 (twelve) hours. apixaban 2020-0 2021- No 5mg Q.5D Take [address] [facility] (ELIQUIS) 5 -09 12- tablet (5 [facility] mg Tab 00:00: 23:59 mg total) Medic al tablet 00 :00 by mouth 2 Center (two) times daily. cyanocobala 2020-0 2021- No 1000ug QD Take [address] min, 12-09-22 tablet [facility]: 23:59 (1,000 mcg Med ical B-12, 1000 00 :00 total) by Cent [facility] MCG tablet mouth daily. flecainide 2020-0 2021- No 50mg Take [address] [facility] (TAMBOCOR) 8- 08-22 tablet (50 Carol kes 50 MG 00:00: 23:59 mg total) Medica l tablet 00 :00 by mouth Center every 12 (twelve) hours. apixaban 2020-0 2- No 5mg Q.5D Take [address] [facility] (ELIQUIS) 5 8-22 08-22 tablet (5 [facility] mg Tab 00:00: 23:59 mg total) Medic al tablet 00 :00 by mouth 2 Center (two) times daily. cyanocobala 2020-2021- No 1000ug QD Take [address] min, 12-09- tablet [facility]: 23:59 (1,000 mcg Med ical B-12, 1000 00 :00 total) by Cent er MCG tablet mouth daily. flecainide 2020-2021- No 50mg Take [address] [facility] (TAMBOCOR) 12-09- tablet (50 Carol kes 50 MG 00:00: 23:59 mg total) Medica l tablet 00 :00 by mouth Center every 12 (twelve) hours. apixaban 2020-2021- No 5mg Q.5D Take [address] [facility] (ELIQUIS) 5 12-09- tablet (5 [facility] mg Tab 00:00: 23:59 mg total) Medic al tablet 00 :00 by mouth 2 Center (two) times daily. cyanocobala 2020-2021- No 1000ug QD Take [address] min, 12-09- tablet [facility]: 23:59 (1,000 mcg Med ical B-12, 1000 00 :00 total) by Cent er MCG tablet mouth daily. flecainide 2020-2021- No 50mg Take [address] [facility] (TAMBOCOR) 12-09 tablet (50 Carol kes 50 MG 00:00: 23:59 mg total) Medica l tablet 00 :00 by mouth Center every 12 (twelve) hours. apixaban 2020-0 2021- No 5mg Q.5D Take [address] [facility] (ELIQUIS) 5 12-09- tablet (5 [facility]es mg Tab 00:00: 23:59 mg total) Medic al tablet 00 :00 by mouth 2 Center (two) times daily. cyanocobala 2020-0 2021- No 1000ug QD Take [address] min, 12-09- tablet [facility]: 23:59 (1,000 mcg Med ical B-12, 1000 00 :00 total) by Cent er MCG tablet mouth daily. flecainide 2022021- No 50mg Take [address] [facility] (TAMBOCOR) [...] 0.25 mg 8-02 ity of tablet 00:00: [facility] ALPRAZolam Yes Univers 0.25 mg 8-02 ity of tablet 00:00: [facility] ALPRAZolam Yes Univers 0.25 mg 8-02 ity of tablet 00:00: [facility] ALPRAZolam Yes Univers 0.25 mg 8-02 ity of tablet 00:00: [facility] ALPRAZolam Yes Univers 0.25 mg 8-02 ity of tablet 00:00: [facility] clopidogrel Yes 75 mg = 1 M emoria 75 MG Oral 5-10 tab, PO, l Tablet 19:06: Daily, # [place] [Plavix] 00 30 tab, 3 Refill(s), Pharmacy: [facility], 160.02, cm, 08/27/20 13:30:00 CDT, Height, 93.636, kg, 08/27/20 13:30:00 CDT, Weight clopidogrel 2021-0 Yes 75 mg = 1 M emoria 75 MG Oral 5-10 tab, PO, l Tablet 19:06: Daily, # [place] [Plavix] 00 30 tab, 3 Refill(s), Pharmacy: [facility], 160.02, cm, 08/27/20 13:30:00 CDT, Height, 93.636, kg, 08/27/20 13:30:00 CDT, Weight clopidogrel 2021-0 Yes 75 mg = 1 M emoria 75 MG Oral 5-10 tab, PO, l Tablet 19:06: Daily, # [place] [Plavix] 00 30 tab, 3 Refill(s), Pharmacy: [facility], 160.02, cm, 08/27/20 13:30:00 CDT, Height, 93.636, kg, 08/27/20 13:30:00 CDT, Weight clopidogrel 2021-0 Yes 75 mg = 1 M emoria 75 MG Oral 5-10 tab, PO, l Tablet 19:06: Daily, # [place] [Plavix] 00 30 tab, 3 Refill(s), Pharmacy: [facility], 160.02, cm, 08/27/20 13:30:00 CDT, Height, 93.636, kg, 08/27/20 13:30:00 CDT, Weight donepezil 2021-0 Yes 10 mg = 1 Mem oria 10 mg oral 4-26 tab, PO, l tablet 17:32: Daily, # [place] 00 90 tab, 1 Refill(s), Pharmacy: [facility] cy #[id number], 157.48, cm, 06/26/20 14:30:00 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, Height, 92.727, kg, 07/23/20 13:26:00 CDT, Weight donepezil 2021-0 Yes 10 mg = 1 Mem oria 10 mg oral 4-26 tab, PO, l tablet 17:32: Daily, # [place] 00 90 tab, 1 Refill(s), Pharmacy: [email or web address] #[id number], 157.48, cm, 06/26/20 14:30:00 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, Height, 92.727, kg, 07/23/20 13:26:00 CDT, Weight donepezil 2020-0 Yes 10 mg = 1 Mem oria 10 mg oral 4-26 tab, PO, l tablet 17:32: Daily, # [place] 00 90 tab, 1 Refill(s), Pharmacy: [facility] #[id number], 157.48, cm, 06/26/20 14:30:00 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, Height, 92.727, kg, 07/23/20 13:26:00 CDT, Weight donepezil 2020-0 Yes 10 mg = 1 Mem oria 10 mg oral 3-09 tab, PO, l tablet 20:52: Bedtime, # Ela nn 00 90 tab, 2 Refill(s), 157.48, cm, 06/26/20 14:30:00 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, Height, 91.818, kg, 06/26/20 14:30:00 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, Weight memantine 2020-0 Yes = 1 tab, Johan manish 10 mg oral 3-09 PO, BID, # l tablet 20:52: 180 tab, 2 Ela nn 00 Refill(s), 157.48, cm, 06/26/20 14:30:00 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, Height, 91.818, kg, 06/26/20 14:30:00 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, Weight topiramate 2020-0 Yes 200 mg = 1 M emoria 200 mg oral 3-09 tab, PO, l tablet 20:52: BID, # 180 Ela nn 00 tab, 1 Refill(s), 157.48, cm, 06/26/20 14:30:00 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, Height, 91.818, kg, 06/26/20 14:30:00 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, Weight donepezil 1-0 Yes 10 mg = 1 Mem oria 10 mg oral 3-09 tab, PO, l tablet 20:52: Bedtime, # Ela nn 00 90 tab, 2 Refill(s), 157.48, cm, 06/26/20 14:30:00 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, Height, 91.818, kg, 06/26/20 14:30:00 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, Weight memantine 0 Yes = 1 tab, Johan manish 10 mg oral 3-09 PO, BID, # l tablet 20:52: 180 tab, 2 Ela nn 00 Refill(s), 157.48, cm, 06/26/20 14:30:00 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, Height, 91.818, kg, 06/26/20 14:30:00 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, Weight topiramate 2020-0 Yes 200 mg = 1 M emoria 200 mg oral 3-09 tab, PO, l tablet 20:52: BID, # 180 Ela nn 00 tab, 1 Refill(s), 157.48, cm, 06/26/20 14:30:00 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, Height, 91.818, kg, 06/26/20 14:30:00 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, Weight donepezil 0 Yes 10 mg = 1 Mem oria 10 mg oral 3-09 tab, PO, l tablet 20:52: Bedtime, # Ela nn 00 90 tab, 2 Refill(s), 157.48, cm, 06/26/20 14:30:00 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, Height, 91.818, kg, 06/26/20 14:30:00 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, Weight memantine 0 Yes = 1 tab, Johan manish 10 mg oral 3-09 PO, BID, # l tablet 20:52: 180 tab, 2 Ela nn 00 Refill(s), 157.48, cm, 06/26/20 14:30:00 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, Height, 91.818, kg, 06/26/20 14:30:00 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, Weight topiramate 2020-0 Yes 200 mg = 1 M emoria 200 mg oral 3-09 tab, PO, l tablet 20:52: BID, # 180 Ela nn 00 tab, 1 Refill(s), 157.48, cm, 06/26/20 14:30:00 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, Height, 91.818, kg, 06/26/20 14:30:00 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, Weight donepezil 2020-0 Yes 10 mg = 1 Mem oria 10 mg oral 3-09 tab, PO, l tablet 20:52: Bedtime, # Ela nn 00 90 tab, 2 Refill(s), 157.48, cm, 06/26/20 14:30:00 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, Height, 91.818, kg, 06/26/20 14:30:00 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, Weight memantine Yes = 1 tab, Johan manish 10 mg oral 3-09 PO, BID, # l tablet 20:52: 180 tab, 2 Ela nn 00 Refill(s), 157.48, cm, 06/26/20 14:30:00 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, Height, 91.818, kg, 06/26/20 14:30:00 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, Weight topiramate Yes 200 mg = 1 M emoria 200 mg oral 3-09 tab, PO, l tablet 20:52: BID, # 180 Ela nn 00 tab, 1 Refill(s), 157.48, cm, 06/26/20 14:30:00 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, Height, 91.818, kg, 06/26/20 14:30:00 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, Weight Zolpidem Yes 10 mg = 1 [...] PRN for [Ambien] sleep, 0 Refill(s) Zolpidem Yes 10 mg = 1 Johan manish tartrate 10 3-09 tab, PO, l MG Oral 20:41: Bedtime, [place] n Tablet 00 PRN for [Ambien] sleep, 0 Refill(s) topiramate 2019-04 Yes 200 mg = 1 M emoria 200 mg oral 2-09 tab, PO, l tablet 20:49: BID, # 180 Ela nn 00 tab, 1 Refill(s), Pharmacy: [facility] #[id number], 160.02, cm, 03/28/20 14:19:00 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, Height, 93.636, kg, 03/28/20 14:19:00 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, Weight topiramate 2019- Yes 200 mg = 1 M emoria 200 mg oral 2-09 tab, PO, l tablet 20:49: BID, # 180 Ela nn 00 tab, 1 Refill(s), Pharmacy: [id number], 160.02, cm, 03/28/20 14:19:00 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, Height, 93.636, kg, 03/28/20 14:19:00 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, Weight topiramate 2019-04 Yes 200 mg = 1 M emoria 200 mg oral 2-09 tab, PO, l tablet 20:49: BID, # 180 Ela nn 00 tab, 1 Refill(s), Pharmacy: [facility] #[id number], 160.02, cm, 03/28/20 14:19:00 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, Height, 93.636, kg, 03/28/20 14:19:00 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, Weight topiramate 2019-04 Yes 200 mg = 1 M emoria 200 mg oral 2-09 tab, PO, l tablet 20:49: BID, # 180 Ela nn 00 tab, 1 Refill(s), Pharmacy: [facility] #[id number], 160.02, cm, 03/28/20 14:19:00 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, Height, 93.636, kg, 03/28/20 14:19:00 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, Weight donepezil 2019- Yes 10 mg = 1 Mem oria 10 mg oral 1-09 tab, PO, l tablet 21:19: Bedtime, # Ela nn 00 90 tab, 2 Refill(s), Pharmacy: [facility] #[id number], 160.02, cm, 02/27/20 14:33:00 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, Height, 93.636, kg, 02/27/20 14:33:00 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, Weight donepezil 2019- Yes 10 mg = 1 Mem oria 10 mg oral 1-09 tab, PO, l tablet 21:19: Bedtime, # Ela nn 00 90 tab, 2 Refill(s), Pharmacy: [facility] #[id number], 160.02, cm, 02/27/20 14:33:00 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, Height, 93.636, kg, 02/27/20 14:33:00 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, Weight donepezil 2019- Yes 10 mg = 1 Mem oria 10 mg oral 1-09 tab, PO, l tablet 21:19: Bedtime, # Ela nn 00 90 tab, 2 Refill(s), Pharmacy: [facility] #[id number], 160.02, cm, 02/27/20 14:33:00 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, Height, 93.636, kg, 02/27/20 14:33:00 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, Weight donepezil 2019-04 Yes 10 mg = 1 Mem oria 10 mg oral 1-09 tab, PO, l tablet 21:19: Bedtime, # El[place] nn 00 90 tab, 2 Refill(s), Pharmacy: [facility] #[id number], 160.02, cm, 02/27/20 14:33:00 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, Height, 93.636, kg, 02/27/20 14:33:00 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, Weight Ellura 2020-0 Yes 0 Memoria 8-07 Refill(s) l 18:57: [place] 00 tizanidine 2020-0 Yes 4 mg = 1 Mem oria 4 mg oral 8-07 tab, PO, l tablet 18:57: Daily, 0 [place] 00 Refill(s) tizanidine 2020-0 Yes 4 mg = 1 Mem oria 4 mg oral 8-07 tab, PO, l tablet 18:57: Daily, 0 [place] 00 Refill(s) Ellura 2020-0 Yes 0 Memoria 8-07 Refill(s) l 18:57: [place] 00 Ellura 2020-0 Yes 0 Memoria 8-07 Refill(s) l 18:57: [place] 00 tizanidine 2020-0 Yes 4 mg = 1 Mem oria 4 mg oral 8-07 tab, PO, l tablet 18:57: Daily, 0 [place] 00 Refill(s) Ellura 2020-0 Yes 0 Memoria 8-07 Refill(s) l 18:57: [place] 00 tizanidine 2020-0 Yes 4 mg = 1 Mem oria 4 mg oral 8-07 tab, PO, l tablet 18:57: Daily, 0 [place] 00 Refill(s) predniSONE 2020-0 Yes 5 mg = 1 Mem oria 5 mg oral 8-06 tab, PO, l tablet 20:23: Daily, # [place] 00 30 tab, 2 Refill(s), Pharmacy: [facility] #[id number], 160.02, cm, 11/24/19 14:46:00 CDT, Height, 95.455, kg, 11/24/19 14:46:00 CDT, Weight predniSONE 2020-0 Yes 5 mg = 1 Mem oria 5 mg oral 8-06 tab, PO, l tablet 20:23: Daily, # [place] 00 30 tab, 2 Refill(s), [id number], 160.02, cm, 11/24/19 14:46:00 CDT, Height, 95.455, kg, 11/24/19 14:46:00 CDT, Weight predniSONE 2020-0 Yes 5 mg = 1 Mem oria 5 mg oral 8-06 tab, PO, l tablet 20:23: Daily, # [place] 00 30 tab, 2 Refill(s), [id number], 160.02, cm, 11/24/19 14:46:00 CDT, Height, 95.455, kg, 11/24/19 14:46:00 CDT, Weight predniSONE 2020-0 Yes 5 mg = 1 Mem oria 5 mg oral 8-06 tab, PO, l tablet 20:23: Daily, # [place] 00 30 tab, 2 Refill(s), [id number], 160.02, cm, 11/24/19 14:46:00 CDT, Height, 95.455, kg, 11/24/19 14:46:00 CDT, Weight predniSONE 2020-0 Yes 5 mg = 1 Mem oria 5 mg oral 6-03 tab, PO, l tablet 19:17: Daily, # [place] 00 30 tab, 2 Refill(s), Pharmacy: [facility] #[id number] predniSONE 2020-0 Yes 5 mg = 1 Mem oria 5 mg oral 6-03 tab, PO, l tablet 19:17: Daily, # [place] 00 30 tab, 2 Refill(s), Pharmacy: [facility] #[id number] predniSONE 2020-0 Yes 5 mg = 1 Mem oria 5 mg oral 6-03 tab, PO, l tablet 19:17: Daily, # [place] 00 30 tab, 2 Refill(s), Pharmacy: [facility] #[id number] predniSONE 2020-0 Yes 5 mg = 1 Mem oria 5 mg oral 6-03 tab, PO, l tablet 19:17: Daily, # [place] 00 30 tab, 2 Refill(s), [id number] Acetaminoph 2020-0 Yes 1 tab, PO, Memoria en 325 MG / 6-03 Q8H, PRN l Hydrocodone 18:41: Pain, # 90 [place] Bitartrate 00 tab, 0 7.5 MG Oral Refill(s) Tablet [Amenia 7.5/325] methocarbam 2020-0 Yes 750 mg = 1 Memoria ol 750 mg 6-03 tab, PO, l oral tablet 18:41: Q8H, PRN [place] 00 Spasms, # 60 tab, 0 Refill(s) predniSONE 2020-0 No 10 mg = 1 Me moria 10 mg oral 6-03 tab, PO, l tablet 18:41: Daily, 0 [place] 00 Refill(s) Acetaminoph 2020-0 Yes 1 tab, PO, Memoria en 325 MG / 6-03 Q8H, PRN l Hydrocodone 18:41: Pain, # 90 [place] Bitartrate 00 tab, 0 7.5 MG Oral Refill(s) Tablet [Amenia 7.5/325] methocarbam 2020-0 Yes 750 mg = 1 Memoria ol 750 mg 6-03 tab, PO, l oral tablet 18:41: Q8H, PRN [place] 00 Spasms, # 60 tab, 0 Refill(s) predniSONE 2020-0 No 10 mg = 1 Me moria 10 mg oral 6-03 tab, PO, l tablet 18:41: Daily, 0 [place] 00 Refill(s) Acetaminoph 2020-0 Yes 1 tab, PO, Memoria en 325 MG / 6-03 Q8H, PRN l Hydrocodone 18:41: Pain, # 90 [place] Bitartrate 00 tab, 0 7.5 MG Oral Refill(s) Tablet [Amenia 7.5/325] methocarbam 2020-0 Yes 750 mg = 1 Memoria ol 750 mg 6-03 tab, PO, l oral tablet 18:41: Q8H, PRN [place] 00 Spasms, # 60 tab, 0 Refill(s) predniSONE 2019-0 No 10 mg = 1 Me moria 10 mg oral 6-03 tab, PO, l tablet 18:41: Daily, 0 [place] 00 Refill(s) Acetaminoph 2019-0 Yes 1 tab, PO, Memoria en 325 MG / 6-03 Q8H, PRN l Hydrocodone 18:41: Pain, # 90 [place] Bitartrate 00 tab, 0 7.5 MG Oral Refill(s) Tablet [Amenia 7.5/325] methocarbam 0 Yes 750 mg = 1 Memoria ol 750 mg 6-03 tab, PO, l oral tablet 18:41: Q8H, PRN [place] 00 Spasms, # 60 tab, 0 Refill(s) predniSONE No 10 mg = 1 Me moria 10 mg oral 6-03 tab, PO, l tablet 18:41: Daily, 0 [place] 00 Refill(s) 24 HR 2019-0 Yes 150 mg = 1 Memori a Bupropion 3-16 tab, PO, l Hydrochlori 15:38: Daily, # [place] de 150 MG 00 30 tab, 2 Extended Refill(s), Release Pharmacy: [facility] [[facility] #[id number] ] Wellbutrin 2019-0 Yes 300 mg = 2 M emoria XL 150 3-16 tab, PO, l mg/24 hours 15:38: Daily, # [place] r[place] oral 00 60 tab, 2 tablet, Refill(s), extended Pharmacy: release [facility] #[id number] 24 HR 2019-0 Yes 150 mg = 1 Memori a Bupropion 3-16 tab, PO, l Hydrochlori 15:38: Daily, # [place] de 150 MG 00 30 tab, 2 Extended Refill(s), Release Pharmacy: [facility] [Well[facility]rin [facility] #[id number] ] 24 HR 2020-0 Yes 150 mg = 1 Memori a Bupropion 3-16 tab, PO, l Hydrochlori 15:38: Daily, # [place] r[place] de 150 MG 00 30 tab, 2 Extended Refill(s), Release Pharmacy: [facility] [Well[facility]rin [facility] #[id number] ] Wellbutrin 2020-0 Yes 300 mg = 2 M emoria XL 150 3-16 tab, PO, l mg/24 hours 15:38: Daily, # [place] r[place] oral 00 60 tab, 2 tablet, Refill(s), extended Pharmacy: release [facility] #[id number] 24 HR 2020-0 Yes 150 mg = 1 Memori a Bupropion 3-16 tab, PO, l Hydrochlori 15:38: Daily, # Alex rmann de 150 MG 00 30 tab, 2 Extended Refill(s), Release Pharmacy: [facility] [Well[facility]rin [facility] #[id number] ] Wellbutrin 2020-0 Yes 300 mg = 2 M emoria XL 150 3-16 tab, PO, l mg/24 hours 15:38: Daily, # [place] rmann oral 00 60 tab, 2 tablet, Refill(s), extended Pharmacy: release [facility] #[id number] predniSONE 2020-0 Yes 10 mg = 1 Me moria 10 mg oral 3-03 tab, PO, l tablet 21:30: Daily, X [place] 00 30 day, # 30 tab, 1 Refill(s), Pharmacy: [facility][id number] predniSONE 2020-0 Yes 10 mg = 1 Me moria 10 mg oral 3-03 tab, PO, l tablet 21:30: Daily, X [place] 00 30 day, # 30 tab, 1 Refill(s), Pharmacy: [facility] #[id number] predniSONE 2020-0 Yes 10 mg = 1 Me moria 10 mg oral 3-03 tab, PO, l tablet 21:30: Daily, X [place] 00 30 day, # 30 tab, 1 Refill(s), Pharmacy: [facility] #[id number] predniSONE 2020-0 Yes 10 mg = 1 Me moria 10 mg oral 3-03 tab, PO, l tablet 21:30: Daily, X [place] 00 30 day, # 30 tab, 1 Refill(s), Pharmacy: [facility] #[id number] predniSONE 2020-0 No 20 mg = 1 Me moria 20 mg oral 3-03 tab, PO, l tablet 20:38: BID, [place] 00 Quantity sufficient , X 30 day, # 60 tab, 1 Refill(s), Pharmacy: [facility] #[id number] predniSONE 2020-0 No 20 mg = 1 Me moria 20 mg oral 3-03 tab, PO, l tablet 20:38: BID, [place] 00 Quantity sufficient , X 30 day, # 60 tab, 1 Refill(s), Pharmacy: [facility] #[id number] predniSONE 2020-0 No 20 mg = 1 Me moria 20 mg oral 3-03 tab, PO, l tablet 20:38: BID, [place] 00 Quantity sufficient , X 30 day, # 60 tab, 1 Refill(s), Pharmacy: [facility] #[id number] predniSONE 2020-0 No 20 mg = 1 Me moria 20 mg oral 3-03 tab, PO, l tablet 20:38: BID, [place] 00 Quantity sufficient , X 30 day, # 60 tab, 1 Refill(s), Pharmacy: [facility] #[id number] predniSONE 2020-0 No 20 mg = 1 Me moria 20 mg oral 3-03 tab, PO, l tablet 20:31: Daily, [place] 00 Quantity sufficient , X 30 day, # 30 tab, 1 Refill(s), Pharmacy: [email or web address] #[id number] predniSONE 2020-0 No 20 mg = 1 Me moria 20 mg oral 3-03 tab, PO, l tablet 20:31: Daily, [place] 00 Quantity sufficient , X 30 day, # 30 tab, 1 Refill(s), Pharmacy: [email or web address] #[id number] predniSONE 2020-0 No 20 mg = 1 Me moria 20 mg oral 3-03 tab, PO, l tablet 20:31: Daily, [place] 00 Quantity sufficient , X 30 day, # 30 tab, 1 Refill(s), Pharmacy: [email or web address] #[id number] predniSONE 2020-0 No 20 mg = 1 Me moria 20 mg oral 3-03 tab, PO, l tablet 20:31: Daily, [place] 00 Quantity sufficient , X 30 day, # 30 tab, 1 Refill(s), Pharmacy: [email or web address] #[id number] Prednisone 2020-0 No 50 mg, PO, M emoria 3-03 Daily, l 20:08: Quantity [place] 00 sufficient , 0 Refill(s) Prednisone 2020-0 No 50 mg, PO, M emoria 3-03 Daily, l 20:08: Quantity [place] 00 sufficient , 0 Refill(s) Prednisone 2020-0 No 50 mg, PO, M emoria 3-03 Daily, l 20:08: Quantity [place] 00 sufficient , 0 Refill(s) Prednisone 2020-0 No 50 mg, PO, M emoria 3-03 Daily, l 20:08: Quantity [place] 00 sufficient , 0 Refill(s) donepezil 5 2019-0 Yes = 1 tab, Me moria mg oral 2-12 PO, l tablet 17:10: Bedtime, # Ela nn 00 90 tab, 3 Refill(s), Pharmacy: [facility] #[id number] donepezil 5 2019-0 Yes = 1 tab, Me moria mg oral 2-12 PO, l tablet 17:10: Bedtime, # Ela nn 00 90 tab, 3 Refill(s), Pharmacy: [facility] #[id number] donepezil 5 2019-0 Yes = 1 tab, Me moria mg oral 2-12 PO, l tablet 17:10: Bedtime, # El[place] nn 00 90 tab, 3 Refill(s), Pharmacy: [facility] #[id number] donepezil 5 2019- Yes = 1 tab, Me moria mg oral 2-12 PO, l tablet 17:10: Bedtime, # El[place] nn 00 90 tab, 3 Refill(s), Pharmacy: [facility] #[id number] spironolact 2018-04 Yes 25 mg = [...] tab, 1 Extended Refill(s), Release Pharmacy: [facility]t [facility] [Wellbutrin [facility] #[id number] ] Nitrofurant 2018-04 Yes 50 mg, PO, Memoria oin 2-03 Daily, # l 19:52: 14 cap, 0 [place] 00 Refill(s) Nitrofurant 2018-04 Yes 50 mg, PO, Memoria oin 2-03 Daily, # l 19:52: 14 cap, 0 [place] 00 Refill(s) Nitrofurant 2018-04 Yes 50 mg, PO, Memoria oin 2-03 Daily, # l 19:52: 14 cap, 0 [place] 00 Refill(s) Nitrofurant 2018-04 Yes 50 mg, PO, Memoria oin 2-03 Daily, # l 19:52: 14 cap, 0 [place] 00 Refill(s) Donepezil 2019-0 Yes 5 mg = 1 Johan manish hydrochlori 9-03 tab, PO, l de 5 MG 20:02: Bedtime, # Herm quynh Oral Tablet 00 30 tab, 3 [Aricept] Refill(s), Pharmacy: [id number] Donepezil 2019-0 Yes 5 mg = 1 Johan manish hydrochlori 9-03 tab, PO, l de 5 MG 20:02: Bedtime, # Herm quynh Oral Tablet 00 30 tab, 3 [Aricept] Refill(s), Pharmacy: [facility] #[id number] Donepezil 2019-0 Yes 5 mg = 1 Johan manish hydrochlori 9-03 tab, PO, l de 5 MG 20:02: Bedtime, # Herm quynh Oral Tablet 00 30 tab, 3 [Aricept] Refill(s), Pharmacy: [facility] #[id number] Donepezil 2019-0 Yes 5 mg = 1 Johan manish hydrochlori 9-03 tab, PO, l de 5 MG 20:02: Bedtime, # Herm quynh Oral Tablet 00 30 tab, 3 [Aricept] Refill(s), Pharmacy: [id number] potassium 2019-0 Yes 20 mEq = 1 Me moria chloride 20 9-03 tab, PO, l mEq oral 19:33: BID, # 10 Herm quynh tablet, 00 tab, 0 extended Refill(s) release potassium 2019-0 Yes 20 mEq = 1 Me moria chloride 20 9-03 tab, PO, l mEq oral 19:33: BID, # 10 Herm quynh tablet, 00 tab, 0 extended Refill(s) release potassium 2019-0 Yes 20 mEq = 1 Me moria chloride 20 9-03 tab, PO, l mEq oral 19:33: BID, # 10 Herm quynh tablet, 00 tab, 0 extended Refill(s) release potassium 2019-0 Yes 20 mEq = 1 Me moria chloride 20 9-03 tab, PO, l mEq oral 19:33: BID, # 10 Herm quynh tablet, 00 tab, 0 extended Refill(s) release gabapentin 2017-0 Yes 300 mg = 1 M emoria 300 mg oral 4-27 cap, PO, l capsule 19:12: TID, # 90 Ela nn 00 cap, 1 Refill(s) metoprolol 2018-0 Yes 50 mg = 1 Me moria tartrate 50 4-27 tab, PO, l mg oral 19:12: Daily, # [place]uch[place] n tablet 00 180 tab, 0 Refill(s) gabapentin 2018-0 Yes 300 mg = 1 M emoria 300 mg oral 4-27 cap, PO, l capsule 19:12: TID, # 90 Ela nn 00 cap, 1 Refill(s) metoprolol 2018-0 Yes 50 mg = 1 Me moria tartrate 50 4-27 tab, PO, l mg oral 19:12: Daily, # [place]uch[place] n tablet 00 180 tab, 0 Refill(s) gabapentin 2018-0 Yes 300 mg = 1 M emoria 300 mg oral 4-27 cap, PO, l capsule 19:12: TID, # 90 Ela nn 00 cap, 1 Refill(s) metoprolol 2018-0 Yes 50 mg = 1 Me moria tartrate 50 4-27 tab, PO, l mg oral 19:12: Daily, # [place]uch[place] n tablet 00 180 tab, 0 Refill(s) Cymbalta 60 2018-0 Yes 60 mg = 1 M emoria mg oral 2-26 cap, PO, l delayed 20:23: BID, 0 [place] release 00 Refill(s) capsule Zocor 40 mg 2018-0 Yes 40 mg = 1 M emoria oral tablet 2-26 tab, PO, l 20:23: Bedtime, 0 [place] 00 Refill(s) Cymbalta 60 0 Yes 60 mg = 1 M emoria mg oral 2-26 cap, PO, l delayed 20:23: BID, 0 [place] release 00 Refill(s) capsule Zocor 40 mg 0 Yes 40 mg = 1 M emoria oral tablet 2-26 tab, PO, l 20:23: Bedtime, 0 [place] 00 Refill(s) Cymbalta 60 0 Yes 60 mg = 1 M emoria mg oral 2-26 cap, PO, l delayed 20:23: BID, 0 [place] release 00 Refill(s) capsule Zocor 40 mg 20180 Yes 40 mg = 1 M emoria [...] FIDOBAC/ZAHIRA 2-28 tablet by ity of B [place] CON 11:30: mouth 2 [place] (ULTRA 04 [...] FIDOBAC/ZAHIRA 2-28 tablet by ity of B [place] CON 11:30: mouth 2 [place] (ULTRA 04 [...] FIDOBAC/ZAHIRA 2-28 tablet by ity of B [place] CON 11:30: mouth 2 [place] (ULTRA 04 [...] FIDOBAC/ZAHIRA 2-28 tablet by ity of B NC CON 11:30: mouth 2 [place] (ULTRA 04 [...] FIDOBAC/ZAHIRA 2-28 tablet by ity of B NC CON 11:30: mouth 2 [place] (ULTRA 04 [...] HCl HCl HCl Estradiol Estradiol No Estradiol PUPPET MASTER Thyroid PUPPET MASTER Thyroid No PUPPET MASTER Thyroid Topiramate Topiramate No Topiramate Mupirocin Mupirocin [...] ER ER ER Estradiol Estradiol No Estradiol PUPPET MASTER Thyroid PUPPET MASTER Thyroid No PUPPET MASTER Thyroid Gabapentin Gabapentin No Gabapentin Donepezil Donepezil [...] ER ER ER Estradiol Estradiol No Estradiol PUPPET MASTER Thyroid PUPPET MASTER Thyroid No PUPPET MASTER Thyroid Gabapentin Gabapentin No Gabapentin Donepezil Donepezil No Donepezil HCl HCl HCl Topiramate Topiramate No Topiramate Indapamide Indapamide No Indapamide DULoxetine DULoxetine No DULoxetine HCl HCl HCl Potassium Potassium No Potassium Chloride Chloride Chloride Nanda ER Nanda ER Nanda ER HYDROcodone HYDROcodone No HYDROcodon -Acetaminop -Acetaminop e-Acetamin hen hen ophen traMADol traMADol No traMADol HCl HCl HCl Meloxicam Meloxicam No Meloxicam tiZANidine tiZANidine No tiZANidine HCl HCl HCl traMADol traMADol No traMADol HCl HCl HCl HYDROcodone HYDROcodone No HYDROcodon -Acetaminop -Acetaminop e-Acetamin hen hen ophen Albuterol Albuterol No Albuterol Pantoprazol Pantoprazol No Pantoprazo e Sodium e Sodium le Sodium Mupirocin Mupirocin No Mupirocin ALPRAZolam ALPRAZolam No ALPRAZolam buPROPion buPROPion No buPROPion HCl ER (XL) HCl ER (XL) HCl ER (XL) Donepezil Donepezil No Donepezil HCl HCl HCl Nitrofurant Nitrofurant No Nitrofuran oin Monohyd oin Monohyd toin Macro Macro Monohyd Macro Estradiol Estradiol No Estradiol Gabapentin Gabapentin No Gabapentin Zanaflex Zanaflex No Zanaflex PUPPET MASTER Thyroid PUPPET MASTER Thyroid No PUPPET MASTER Thyroid QUEtiapine QUEtiapine No QUEtiapine Fumarate Fumarate Fumarate Indapamide Indapamide No Indapamide traMADol traMADol No traMADol HCl HCl HCl Zolpidem Zolpidem No Zolpidem Tartrate Tartrate Tartrate Memantine Memantine No Memantine HCl HCl HCl Metoprolol Metoprolol No Metoprolol Succinate Succinate Succinate ER ER ER Ciprofloxac Ciprofloxac No Ciprofloxa in HCl in HCl jose HCl DULoxetine DULoxetine No DULoxetine HCl HCl HCl Potassium Potassium No Potassium Chloride Chloride Chloride Nanda ER Nanda ER Nanda ER Simvastatin Simvastatin No Simvastati n Topiramate Topiramate No Topiramate Meloxicam Meloxicam No Meloxicam tiZANidine tiZANidine No tiZANidine HCl HCl HCl traMADol traMADol No traMADol HCl HCl HCl HYDROcodone HYDROcodone No HYDROcodon -Acetaminop -Acetaminop e-Acetamin hen hen ophen Albuterol Albuterol No Albuterol traMADol traMADol No traMADol HCl HCl HCl Pantoprazol Pantoprazol No Pantoprazo e Sodium e Sodium le Sodium Mupirocin Mupirocin No Mupirocin ALPRAZolam ALPRAZolam No ALPRAZolam buPROPion buPROPion No buPROPion HCl ER (XL) HCl ER (XL) HCl ER (XL) Donepezil Donepezil No Donepezil HCl HCl HCl Nitrofurant Nitrofurant No Nitrofuran oin Monohyd oin Monohyd toin Macro Macro Monohyd Macro Estradiol Estradiol No Estradiol Gabapentin Gabapentin No Gabapentin Zanaflex Zanaflex No Zanaflex PUPPET MASTER Thyroid PUPPET MASTER Thyroid No PUPPET MASTER Thyroid Potassium Potassium No Potassium Chloride Chloride Chloride Nanad ER Nanda ER Nanda ER QUEtiapine QUEtiapine No QUEtiapine Fumarate Fumarate Fumarate Indapamide Indapamide No Indapamide traMADol traMADol No traMADol HCl HCl HCl Zolpidem Zolpidem No Zolpidem Tartrate Tartrate Tartrate Memantine Memantine No Memantine HCl HCl HCl Metoprolol Metoprolol No Metoprolol Succinate Succinate Succinate ER ER ER Ciprofloxac Ciprofloxac No Ciprofloxa in HCl in HCl jose HCl DULoxetine DULoxetine No DULoxetine HCl HCl HCl Potassium Potassium No Potassium Chloride Chloride Chloride Nanda ER Nanda ER Nanda ER Simvastatin Simvastatin No Simvastati n traMADol traMADol No traMADol HCl HCl HCl Topiramate Topiramate No Topiramate Meloxicam Meloxicam No Meloxicam tiZANidine tiZANidine No tiZANidine HCl HCl HCl traMADol traMADol No traMADol HCl HCl HCl DULoxetine DULoxetine No DULoxetine HCl HCl HCl HYDROcodone HYDROcodone No HYDROcodon -Acetaminop -Acetaminop e-Acetamin hen hen ophen Albuterol Albuterol No Albuterol Pantoprazol Pantoprazol No Pantoprazo e Sodium e Sodium le Sodium Mupirocin Mupirocin No Mupirocin ALPRAZolam ALPRAZolam No ALPRAZolam buPROPion buPROPion No buPROPion HCl ER (XL) HCl ER (XL) HCl ER (XL) Donepezil Donepezil No Donepezil HCl HCl HCl Nitrofurant Nitrofurant No Nitrofuran oin Monohyd oin Monohyd toin Macro Macro Monohyd Macro Estradiol Estradiol No Estradiol Gabapentin Gabapentin No Gabapentin Indapamide Indapamide No Indapamide Zanaflex Zanaflex No Zanaflex PUPPET MASTER Thyroid PUPPET MASTER Thyroid No PUPPET MASTER Thyroid QUEtiapine QUEtiapine No QUEtiapine Fumarate Fumarate Fumarate Indapamide Indapamide No Indapamide traMADol traMADol No traMADol HCl HCl HCl Zolpidem Zolpidem No Zolpidem Tartrate Tartrate Tartrate Memantine Memantine No Memantine HCl HCl HCl Metoprolol Metoprolol No Metoprolol Succinate Succinate Succinate ER ER ER Ciprofloxac Ciprofloxac No Ciprofloxa in HCl in HCl jose HCl DULoxetine DULoxetine No DULoxetine HCl HCl HCl Topiramate Topiramate No Topiramate Potassium Potassium No Potassium Chloride Chloride Chloride Nanda ER Nanda ER Nanda ER Simvastatin Simvastatin No Simvastati n Topiramate Topiramate No Topiramate Meloxicam Meloxicam No [...] Donepezil Donepezil No Donepezil HCl HCl HCl PUPPET MASTER Thyroid PUPPET MASTER Thyroid No PUPPET MASTER Thyroid Simvastatin Simvastatin No Simvastati n Indapamide [...] Mupirocin No Mupirocin Estradiol Estradiol No Estradiol PUPPET MASTER Thyroid PUPPET MASTER Thyroid No PUPPET MASTER Thyroid Meloxicam Meloxicam No Meloxicam tiZANidine tiZANidine [...] Completed Unive rsity of PFIZER VACCINE 00:00:00 [facility] SARS-COV-2 COVID-19 2020-07-07 Completed Unive rsity of PFIZER VACCINE 00:00:00 [facility] SARS-COV-2 COVID-19 2020-07-07 Completed Unive rsity of PFIZER VACCINE 00:00:00 [facility] SARS-COV-2 COVID-19 2020-07-07 Completed Unive rsity of PFIZER VACCINE 00:00:00 [facility] SARS-COV-2 COVID-19 2020-07-07 Completed Unive rsity of PFIZER VACCINE 00:00:00 [facility] SARS-COV-2 COVID-19 2020-06-16 Completed Unive rsity of PFIZER VACCINE 00:00:00 [facility] SARS-COV-2 COVID-19 2020-06-16 Completed Unive rsity of PFIZER VACCINE 00:00:00 [facility] SARS-COV-2 COVID-19 2020-06-16 Completed Unive rsity of PFIZER VACCINE 00:00:00 [facility] SARS-COV-2 COVID-19 2020-06-16 Completed Unive rsity of PFIZER VACCINE 00:00:00 [facility] SARS-COV-2 COVID-19 2020-06-16 Completed Unive rsity of PFIZER VACCINE 00:00:00 [facility] Vital Signs Vital Name Observation Time Observation Value Comments Source WEIGHT 2020-12-09 06:47:00 97.478 kg WEIGHT 2020-12-03 23:00:00 98.839 kg HEIGHT 2020-12-03 22:25:00 160 cm WEIGHT 2020-12-03 22:25:00 100.562 kg height 2022-04-10 13:30:00 63 [in_i] [facility] weight 2022-04-10 13:30:00 209 [lb_av] [facility] temperature 2022-04-10 13:30:00 97.9 [degF] [facility] bmi 2022-04-10 13:30:00 37.02 kg/m2 [facility] blood pressure 2022-04-10 13:30:00 124 mm[Hg] [facility] systolic [facility] blood pressure 2022-04-10 13:30:00 80 mm[Hg] [facility] diastolic [facility] height 2022-02-20 11:00:00 63 [in_i] [facility] weight 2022-02-20 11:00:00 209 [lb_av] [facility] temperature 2022-02-20 11:00:00 96.9 [degF] [facility] bmi 2022-02-20 11:00:00 37.02 kg/m2 [facility] blood pressure 2022-02-20 11:00:00 122 mm[Hg] [facility] - systolic [facility] blood pressure 2022-02-20 11:00:00 78 mm[Hg] [facility] diastolic [facility] height 2021-11-27 13:00:00 63 [in_i] [facility] - [facility] weight 2021-11-27 13:00:00 208 [lb_av] [facility] bmi 2021-11-27 13:00:00 36.84 kg/m2 [facility] - [facility] blood pressure 2021-11-27 13:00:00 120 mm[Hg] [facility] systolic [facility] blood pressure 2021-11-27 13:00:00 70 mm[Hg] [facility] height 2021-11-06 13:00:00 63 [in_i] [facility] weight 2021-11-06 13:00:00 208 [lb_av] [facility] temperature 2021-11-06 13:00:00 97.9 [degF] [facility] bmi 2021-11-06 13:00:00 36.84 kg/m2 [facility] blood pressure 2021-11-06 13:00:00 112 mm[Hg] [facility] systolic [facility] blood pressure 2021-11-06 13:00:00 72 mm[Hg] [facility] diastolic [facility] height 2021-10-23 11:00:00 63 [in_i] Common [facility] weight 2021-10-23 11:00:00 208 [lb_av] Common [facility] bmi 2021-10-23 11:00:00 36.84 kg/m2 [facility] blood pressure 2021-10-23 11:00:00 112 mm[Hg] [facility] systolic [facility] blood pressure 2021-10-23 11:00:00 72 mm[Hg] [facility] diastolic [facility] height 2021-08-26 13:15:00 63 [in_i] Common [facility] weight 2021-08-26 13:15:00 208 [lb_av] [facility] bmi 2021-08-26 13:15:00 36.84 kg/m2 [facility] blood pressure 2021-08-26 13:15:00 122 mm[Hg] [facility] systolic [facility] blood pressure 2021-08-26 13:15:00 74 mm[Hg] [facility] Systolic blood 2021-07-24 19:34:00 115 mm[Hg] Univer sity of pressure [facility] Diastolic blood 2021-07-24 19:34:00 59 mm[Hg] Unive rsity of pressure [facility] Heart rate 2021-07-24 19:34:00 56 /min [facility] Body height 2021-07-24 19:34:00 160 cm [facility] Body weight 2021-07-24 19:34:00 102.513 kg [facility] BMI 2021-07-24 19:34:00 40.03 kg/m2 [facility] WEIGHT 2020-12-09 06:47:00 97.478 kg WEIGHT 2020-12-03 23:00:00 98.839 kg HEIGHT 2020-12-03 22:25:00 160 cm WEIGHT 2020-12-03 22:25:00 100.562 kg Systolic (mm Hg) 2022-11-04 18:08:00 Johan [facility] [place] Diastolic (mm Hg) 2022-11-04 18:08:00 Mem [facility] [place] Heart Rate 2022-11-04 18:08:00 [facility] [place] Systolic (mm Hg) 2022-07-16 16:32:00 Johan rial [place] Diastolic (mm Hg) 2022-07-16 16:32:00 [facility] [place] Heart Rate 2022-07-16 16:32:00 [facility] [place] Systolic (mm Hg) 2022-03-25 21:08:00 Johan rial [place] Diastolic (mm Hg) 2022-03-25 21:08:00 [facility] [place] Heart Rate 2022-03-25 21:08:00 [facility] [place] Systolic (mm Hg) 2021-09-24 21:20:00 Johan rial [place] Diastolic (mm Hg) 2021-09-24 21:20:00 [facility] [place] Heart Rate 2021-09-24 21:20:00 [facility] [place] Respitory Rate 2021-09-24 21:20:00 [facility] [place] Systolic (mm Hg) 2021-04-23 22:09:00 Johan rial [place] Diastolic (mm Hg) 2021-04-23 22:09:00 [facility] [place] Heart Rate 2021-04-23 22:09:00 [facility] [place] Respitory Rate 2021-04-23 22:09:00 [facility] [place] Systolic (mm Hg) 2021-03-29 16:49:00 Johan rial [place] Diastolic (mm Hg) 2021-03-29 16:49:00 [facility] [place] Heart Rate 2021-03-29 16:49:00 [facility] [place] Respitory Rate 2021-03-29 16:49:00 Memori al [place] Heart rate 2020-12-09 08:01:00 56 /min [facility] Respiratory rate 2020-12-09 08:01:00 16 /min [facility] Oxygen saturation in 2020-12-09 08:01:00 93 /min [facility] Arterial blood by Medical Ce nter Pulse oximetry Systolic blood 2020-12-09 07:00:00 126 mm[Hg] [facility] Diastolic blood 2020-12-09 07:00:00 60 mm[Hg] [facility] Body temperature 2020-12-09 07:00:00 36.61 Genia [facility] Body weight 2020-12-09 06:47:00 97.478 kg [facility] BMI 2020-12-09 06:47:00 38.07 kg/m2 [facility] Body height 2020-12-03 22:25:00 160 cm [facility] Systolic (mm Hg) 2020-11-27 20:24:00 Johan rial [place] Diastolic (mm Hg) 2020-11-27 20:24:00 Mem [facility] [place] Heart Rate 2020-11-27 20:24:00 [facility] [place] Respitory Rate 2020-11-27 20:24:00 [facility] [place] Height 2020-11-27 20:24:[address] [facility] [place] Weight 2020-11-27 20:24:[address] [facility] [place] BMI Calculated 2020-11-27 20:24:00 [facility] [place] Systolic (mm Hg) 2020-08-27 18:30:00 Johan rial [place] Diastolic (mm Hg) 2020-08-27 18:30:00 [facility] [place] Heart Rate 2020-08-27 18:30:00 [facility] [place] Respitory Rate 2020-08-27 18:30:00 [facility] [place] Height 2020-08-27 18:30:00 160.02 cm [facility] [place] Weight 2020-08-27 18:30:00 [facility] [place] BMI Calculated 2020-08-27 18:30:00 [facility] [place] Systolic (mm Hg) 2020-07-23 18:26:00 Johan rial [place] Heart Rate 2020-07-23 18:26:00 [facility] [place] Respitory Rate 2020-07-23 18:26:00 [facility] [place] Weight 2020-07-23 18:26:00 [facility] [place] Systolic (mm Hg) 2020-06-26 20:30:00 Johan rial [place] Diastolic (mm Hg) 2020-06-26 20:30:00 [facility] [place] Heart Rate 2020-06-26 20:30:00 [facility] [place] Respitory Rate 2020-06-26 20:30:00 [facility] [place] Height 2020-06-26 20:30:00 157.48 cm [facility] [place] Weight 2020-06-26 20:30:00 [facility] [place] BMI Calculated 2020-06-26 20:30:00 [facility] [place] Systolic (mm Hg) 2020-03-28 20:19:00 Johan rial [place] Diastolic (mm Hg) 2020-03-28 20:19:00 Mem [facility] [place] Heart Rate 2020-03-28 20:19:00 [facility] [place] Respitory Rate 2020-03-28 20:19:00 [facility] [place] Height 2020-03-28 20:19:00 160.02 cm [facility] [place] Weight 2020-03-28 20:19:00 [facility] [place] BMI Calculated 2020-03-28 20:19:00 [facility] [place] Systolic (mm Hg) 2020-02-27 20:33:00 Johan rial [place] Diastolic (mm Hg) 2020-02-27 20:33:00 [facility] [place] Heart Rate 2020-02-27 20:33:00 [facility] [place] Respitory Rate 2020-02-27 20:33:00 [facility] [place] Height 2020-02-27 20:33:00 160.02 cm [facility] [place] Weight 2020-02-27 20:33:00 [facility] [place] BMI Calculated 2020-02-27 20:33:00 [facility] [place] Systolic (mm Hg) 2020-01-05 20:09:00 Johan rial [place] Diastolic (mm Hg) 2020-01-05 20:09:00 [facility] [place] Heart Rate 2020-01-05 20:09:00 [facility] [place] Respitory Rate 2020-01-05 20:09:00 [facility] [place] Height 2020-01-05 20:09:00 160.02 cm [facility] [place] Weight 2020-01-05 20:09:00 [facility] [place] BMI Calculated 2020-01-05 20:09:00 [facility] [place] Systolic (mm Hg) 2019-11-24 19:46:00 Johan rial [place] Diastolic (mm Hg) 2019-11-24 19:46:00 [facility] [place] Heart Rate 2019-11-24 19:46:00 [facility] [place] Respitory Rate 2019-11-24 19:46:00 [facility] [place] Height 2019-11-24 19:46:00 160.02 cm [facility] [place] Weight 2019-11-24 19:46:00 [facility] [place] BMI Calculated 2019-11-24 19:46:00 [facility] [place] Systolic (mm Hg) 2019-09-21 18:37:00 Johan rial [place] Diastolic (mm Hg) 2019-09-21 18:37:00 [facility] [place] Heart Rate 2019-09-21 18:37:00 [facility] [place] Systolic (mm Hg) 2019-06-21 20:05:00 Johan rial [place] Diastolic (mm Hg) 2019-06-21 20:05:00 [facility] [place] Heart Rate 2019-06-21 20:05:00 [facility] [place] Respitory Rate 2019-06-21 20:05:00 [facility] [place] Height 2019-06-21 20:05:00 160.02 cm [facility] [place] Weight 2019-06-21 20:05:00 [facility] [place] BMI Calculated 2019-06-21 20:05:00 [facility] [place] Systolic (mm Hg) 2019-03-22 19:34:00 Johan rial [place] Diastolic (mm Hg) 2019-03-22 19:34:00 Mem [facility] [place] Heart Rate 2019-03-22 19:34:00 [facility] [place] Respitory Rate 2019-03-22 19:34:00 [facility] [place] Height 2019-03-22 19:34:00 160.02 cm Hannah Arzate Weight 2019-03-22 19:34:00 Hannah Pennann BMI Calculated 2019-03-22 19:34:00 Bob caruso [place] Systolic (mm Hg) 2018-12-21 19:08:00 Johan Arzate Diastolic (mm Hg) 2018-12-21 19:08:00 Kalhil Pennann Heart Rate 2018-12-21 19:08:00 Hannah [place] Respitory Rate 2018-12-21 19:08:00 Bob Wihteann Height 2018-12-21 19:08:00 160.02 cm Hannah Arzate Weight 2018-12-21 19:08:00 Hannah Pennann BMI Calculated 2018-12-21 19:08:00 Bob Payton Procedures Procedure Date / Time Performing Clinician Source Performed EXTERNAL PROVIDER RECORDS 2021-09-04 05:01:00 Doctor Unassigned, [facility] HOME HEALTH - OTHER 2021-05-31 06:01:00 Doctor Unassigned, [facility] Name Medical Branch HIGH SENSITIVITY TROPONIN 2020-12-08 16:40:00 Perfecto Diaz [facility] [place] ECG 12-LEAD 2020-12-08 15:59:02 Unknown, Hl7 Doctor [facility] ECG 12-LEAD 2020-12-08 15:59:02 Unknown, Hl7 Doctor [facility] XR CHEST 1 VIEW PORTABLE / 2020-12-08 07:54:00 Kvng Crane [facility] BEDSIDE D. Center CBC W/PLT COUNT & AUTO 2020-12-08 04:39:00 Downsjuan carlos Guillaume [facility] DIFFERENTIAL [facility] BASIC METABOLIC PANEL (7) 2020-12-08 04:39:00 Himanshu Guillaume CH I [facility] CBC W/PLT COUNT & AUTO 2020-12-08 04:39:00 Downsjuan carlos Guillaume [facility] DIFFERENTIAL [facility] MAGNESIUM 2020-12-08 04:39:00 Himanshu Guillaume [facility] B-TYPE NATRIURETIC FACTOR 2020-12-07 03:34:00 Yoko Crane [facility]BNP) [facility]ST 1 VIEW PORTABLE / 2020-12-06 13:03:00 Perfecto Diaz [facility] BASIC METABOLIC PANEL (7) 2020-12-06 11:41:00 JoePerfecto [facility] MAGNESIUM 2020-12-06 11:41[facility] B-TYPE NATRIURETIC FACTOR 2020-12-06 11:41:[address] [facility] [address] [facility] (BNP) [facility] ECG 12-LEAD 2020-12-05 10:53:46 Dion Mcdonald [facility] TRANSESOPHAGEAL ECHO 2020-12-05 09:39:19 Malu [facility] CBC W/PLT COUNT & AUTO 2020-12-05 05:17:00 [facility] (7[facility] 2020-12-05 [facility] 2020-[facility]05 [place] AUTO 2020-12-05 05:17:00 [facility] 2020-12-05 00:31:19 Malu [facility] HIGH SENSITIVITY TROPONIN 2020-12-04 18:35[facility]00 [facility] W/ DOPPLER 2020-12-04 14:07:13 Clint Malave [facility] (CW[facility]PW/COLOR[facility] 2020-12-04 05:36[facility] XR CHEST 1 VIEW PORTABLE / 2020-12-04 04:08:00 Bishnu, [facility] SARS-COV2/RT-PCR ([facility] & 2020-12-04 03:48[facility] CBC W/PLT COUNT & AUTO 2020-12-04 03:41:00 [facility] BASIC METABOLIC PANEL (7) 2020-12-04 03:41:00 Bishnu, [facility] HEPATIC FUNCTION PANEL 2020-12-04 03:41[place] W/PLT COUNT & AUTO 2020-12-04 03:41:00 [facility] HIGH SENSITIVITY TROPONIN 2020-12-04 03:41:00 [facility]-TYPE NATRIURETIC FACTOR 2020-12-04 03:41[facility] CBC W/PLT COUNT & AUTO 2020-12-03 23:21:00 [facility] BASIC METABOLIC PANEL (7) 2020-12-03 23:21[facility] 2020-12-03 23:21[place]ES[place] 2020-12-03 23:21:00 Bishnu [facility] PHOSPHORUS 2020-12-03 23:21[facility]INR 2020-12-03 23:21:00 [facility] CBC W/PLT COUNT & AUTO 2020-12-03 23:21:00 [facility] TSH/FREE T4 IF INDICATED 2020-12-03 23:21[facility]IV[facility] TROPONIN 2020-12-03 23:21:00 Bishnu, Arielle CH I [facility] D-DIMER 2020-12-03 23:21:00 Bishnu, [facility] VITAMIN B12 AND FOLATE 2020-12-03 23:21:00 Arielle Goetz S t [facility] ECG 12-LEAD 2020-12-03 23:12:15 Bishnu, [facility] ECG 12-LEAD 2020-12-03 23:07:40 Unknown, Hl7 Doctor [facility] REPORT OF PROCEDURE - 2020-12-03 00:00:00 Provider, Andrew [facility] ENDOSCOPY SCAN Scanning Center Plan of Care Planned Activity Planned Date Details Comments Source Future Scheduled 2022-12-19 Influenza Vaccine (#1) C [facility] Test 00:00:00 [code = Influenza Medical Ce nter Vaccine (#1)] Future Scheduled 2022-11-19 SHINGLES VACCINES (1 [facility] Test 02:09:39 of 2) [code = SHINGLES VACCINES (1 of 2)] Future Scheduled 2022-11-19 65+ [facility] 02:09:39 VACCINE (1 - PCV) [code = 65+ PNEUMOCOCCAL VACCINE (1 - PCV)] Future Scheduled 2022-11-19 COVID-19 VACCINE (3 - Me [facility] Test 02:09:39 Pfizer series) [code = COVID-19 VACCINE (3 - Pfizer series)] Future Scheduled 2022-11-19 INFLUENZA VACCINE Method [facility] Test 02:09:39 [code = INFLUENZA VACCINE] Future Scheduled 2022-06-04 SHINGLES VACCINES (1 [facility] Test 16:08:27 of 2) [code = SHINGLES VACCINES (1 of 2)] Future Scheduled 2022-06-04 65+ [facility]CCAL [facility] Test 16:08:27 VACCINE (1 - PCV) [code = 65+ PNEUMOCOCCAL VACCINE (1 - PCV)] Future Scheduled 2022-06-04 COVID-19 VACCINE (3 - [facility] Test 16:08:27 Booster for Pfizer series) [code = COVID-19 VACCINE (3 - Booster for Pfizer series)] Future Scheduled 2022-06-04 INFLUENZA VACCINE Method [facility] Test 16:08:27 [code = INFLUENZA VACCINE] Future Scheduled 2022-04-[address] [facility] Test 00:00:00 (12+) [code = Medical Center DEPRESSION SCREENING (12+)] Future Scheduled 2022-04-20 FALLS RISK SCREENING [facility] Test 00:00:00 [code = FALLS RISK Medical C enter SCREENING] Future Scheduled 2022-04-[address] [facility] Test 00:00:00 (12+) [code = Medical Center DEPRESSION SCREENING (12+)] Future Scheduled 2022-04-20 FALLS RISK SCREENING [facility] Test 00:00:00 [code = FALLS RISK Medical C enter SCREENING] Future Scheduled 2022-04-02 SHINGLES VACCINES (1 [facility] Test 02:09:49 of 2) [code = SHINGLES VACCINES (1 of 2)] Future Scheduled 2022-04-02 65+ [facility]CCAL [facility] Test 02:09:49 VACCINE (1 - PCV) [code = 65+ PNEUMOCOCCAL VACCINE (1 - PCV)] Future Scheduled 2022-04-02 COVID-19 VACCINE (3 - Me [facility] Test 02:09:49 Booster for Pfizer series) [code = COVID-19 VACCINE (3 - Booster for Pfizer series)] Future Scheduled 2022-04-02 INFLUENZA VACCINE [facility] Test 02:09:49 [code = INFLUENZA VACCINE] Future Scheduled 2022-02-10 SHINGLES VACCINES (1 [facility] Test 14:48:18 of 2) [code = [...] series)] Future Scheduled 2022-02-10 INFLUENZA VACCINE [facility] Test 14:48:18 [code = INFLUENZA VACCINE] Future Scheduled 2022-02-10 HEPATITIS B VACCINES [facility] Test 14:48:18 (1 of 3 - 3-dose series) [code = HEPATITIS B VACCINES (1 of 3 - 3-dose series)] Future Scheduled 2022-02-10 SHINGLES VACCINES (1 [facility] Test 14:48:18 of 2) [code = [...] Future Scheduled 2022-02-10 HEPATITIS B VACCINES [facility] Test 14:48:18 (1 of 3 - 3-dose series) [code = HEPATITIS B VACCINES (1 of 3 - 3-dose series)] Future Scheduled 2022-02-10 SHINGLES VACCINES (1 [facility] Test 14:48:18 of 2) [code = SHINGLES VACCINES (1 of 2)] Future Scheduled 2022-02-10 65+ [facility]OCCAL [facility] Test 14:48:18 VACCINE (1 - PCV) [code = 65+ PNEUMOCOCCAL VACCINE (1 - PCV)] Future Scheduled 2022-02-10 COVID-19 VACCINE (3 - [facility] Test 14:48:18 Booster for Pfizer series) [code = COVID-19 VACCINE (3 - Booster for Pfizer series)] Future Scheduled 2022-02-10 INFLUENZA VACCINE [facility] Test 14:48:18 [code = INFLUENZA VACCINE] Future Scheduled 2022-02-10 HEPATITIS B VACCINES [facility] Test 14:48:18 (1 of 3 - 3-dose series) [code = HEPATITIS B VACCINES (1 of 3 - 3-dose series)] Future Scheduled 2022-02-10 SHINGLES VACCINES (1 [facility] Test 14:48:18 of 2) [code = SHINGLES VACCINES (1 of 2)] Future Scheduled 2022-02-10 65+ PNEUMOCOCCAL [facility] 14:48:18 VACCINE (1 - PCV) [code = 65+ PNEUMOCOCCAL VACCINE (1 - PCV)] Future Scheduled 2022-02-10 COVID-19 VACCINE (3 - [facility] Test 14:48:18 Booster for Pfizer series) [code = COVID-19 VACCINE (3 - Booster for Pfizer series)] Future Scheduled 2022-02-10 INFLUENZA VACCINE Method [facility] Test 14:48:18 [code = INFLUENZA VACCINE] Future Scheduled 2022-02-10 HEPATITIS B VACCINES [facility] Test 14:48:18 (1 of 3 - 3-dose series) [code = HEPATITIS B VACCINES (1 of 3 - 3-dose series)] Future Scheduled 2022-02-10 SHINGLES VACCINES (1 [facility] Test 14:48:18 of 2) [code = SHINGLES VACCINES (1 of 2)] Future Scheduled 2022-02-10 65+ [facility] 14:48[facility]18 VACCINE (1 - PCV) [code = 65+ PNEUMOCOCCAL VACCINE (1 - PCV)] Future Scheduled 2022-02-10 COVID-19 VACCINE (3 - [facility] Test 14:48:18 Booster for Pfizer series) [code = COVID-19 VACCINE (3 - Booster for Pfizer series)] Future Scheduled 2022-02-10 INFLUENZA VACCINE Method [facility] Test 14:48:18 [code = INFLUENZA VACCINE] Future Scheduled 2022-02-10 HEPATITIS B VACCINES [facility] Test 14:48:18 (1 of 3 - 3-dose series) [code = HEPATITIS B VACCINES (1 of 3 - 3-dose series)] Future Scheduled 2021-12-19 INFLUENZA VACCINE (#1) [facility]00 [code = INFLUENZA Medical Ce nter VACCINE (#1)] Future Scheduled 2021-12-19 INFLUENZA VACCINE (#1) [facility] 00:00:00 [code = INFLUENZA Medical Ce nter VACCINE (#1)] Future Scheduled 2021-12-19 INFLUENZA VACCINE (#1) [facility] 00:00:00 [code = INFLUENZA Medical Ce nter VACCINE (#1)] Future Scheduled 2021-12-19 INFLUENZA VACCINE (#1) [facility] 00:00:00 [code = INFLUENZA Medical Ce nter VACCINE (#1)] Future Scheduled 2021-12-19 INFLUENZA VACCINE (#1) [facility] 00:00:00 [code = INFLUENZA Medical Ce nter VACCINE (#1)] Future Scheduled 2021-12-19 INFLUENZA VACCINE (#1) [facility] 00:00:00 [code = INFLUENZA Medical Ce nter VACCINE (#1)] Future Scheduled 2021-12-19 INFLUENZA VACCINE (#1) [facility] 00:00:00 [code = INFLUENZA Medical Ce nter VACCINE (#1)] Future Scheduled 2021-12-17 HEPATITIS B VACCINES [facility] Test 02:08:28 (1 of 3 - 3-dose series) [code = HEPATITIS B VACCINES (1 of 3 - 3-dose series)] Future Scheduled 2021-12-17 SHINGLES VACCINES (1 [facility] Test 02:08:28 of 2) [code = SHINGLES VACCINES (1 of 2)] Future Scheduled 2021-12-17 65+ PNEUMOCOCCAL [facility] Test 02:08:28 VACCINE (1 - PCV) [code = 65+ PNEUMOCOCCAL VACCINE (1 - PCV)] Future Scheduled 2021-12-17 COVID-19 VACCINE (3 - [facility] Test 02:08:28 Booster for Pfizer series) [code = COVID-19 VACCINE (3 - Booster for Pfizer series)] Future Scheduled 2021-12-17 INFLUENZA VACCINE [facility] Test 02:08:28 [code = INFLUENZA VACCINE] Future Scheduled 2021-12-[address] [facility] Test 00:00:00 Counseling and Medical Cente r Screening (12+) [code = Tobacco Cessation Counseling and Screening (12+)] Future Scheduled 2021-12-[address] [facility] Test 00:00:00 Counseling and Medical Cente r Screening (12+) [code = Tobacco Cessation Counseling and Screening (12+)] Future Scheduled 2021-04-[address] [facility] 00:00:00 WELLNESS (YEAR 2 or Medical Center FIRST YEAR if no IPPE) [code = MEDICARE ANNUAL WELLNESS (YEAR 2 or FIRST YEAR if no IPPE)] Future Scheduled 2021-04-[address] [facility] 00:00:00 WELLNESS (YEAR 2 or Medical Center FIRST YEAR if no IPPE) [code = MEDICARE ANNUAL WELLNESS (YEAR 2 or FIRST YEAR if no IPPE)] Future Scheduled 2021-04-[address] [facility] 00:00:00 WELLNESS (YEAR 2 or Medical Center FIRST YEAR if no IPPE) [code = MEDICARE ANNUAL WELLNESS (YEAR 2 or FIRST YEAR if no IPPE)] Future Scheduled 2021-04-[address] [facility] 00:00:00 WELLNESS (YEAR 2 or Medical Center FIRST YEAR if no IPPE) [code = MEDICARE ANNUAL WELLNESS (YEAR 2 or FIRST YEAR if no IPPE)] Future Scheduled 2021-04-[address] [facility] 00:00:00 WELLNESS (YEAR 2 or Medical Center FIRST YEAR if no IPPE) [code = MEDICARE ANNUAL WELLNESS (YEAR 2 or FIRST YEAR if no IPPE)] Future Scheduled 2021-04-[address] [facility] 00:00:00 WELLNESS (YEAR 2 or Medical Center FIRST YEAR if no IPPE) [code = MEDICARE ANNUAL WELLNESS (YEAR 2 or FIRST YEAR if no IPPE)] Future Scheduled 2021-04-[address] [facility] 00:00:00 WELLNESS (YEAR 2 or Medical Center FIRST YEAR if no IPPE) [code = MEDICARE ANNUAL WELLNESS (YEAR 2 or FIRST YEAR if no IPPE)] Future Scheduled 2021-04-[address] [...] RISK Medical C enter SCREENING] Future Scheduled 2021-04-[address] [facility] Test 00:00:00 (12+) [code = Medical Center DEPRESSION SCREENING (12+)] Future Scheduled 2021-04-20 FALLS RISK SCREENING [facility] Test 00:00:00 [code = FALLS RISK Medical C enter SCREENING] Future Scheduled 2021-04-[address] [facility] Test 00:00:00 (12+) [code = Medical Center DEPRESSION SCREENING (12+)] Future Scheduled 2021-04-20 FALLS RISK SCREENING [facility] Test 00:00:00 [code = FALLS RISK Medical C enter SCREENING] Future Scheduled 2021-04-[address] [facility] Test 00:00:00 (12+) [code = Medical Center DEPRESSION SCREENING (12+)] Future Scheduled 2021-04-20 F[address]S RISK SCREENING [facility] Test 00:00:00 [code = FALLS RISK Medical C enter SCREENING] Future Scheduled 2021-04-[address] [facility] Test 00:00:00 (12+) [code = Medical Center DEPRESSION SCREENING (12+)] Future Scheduled 2021-04-20 F[address]S RISK SCREENING [facility] Test 00:00:00 [code = FALLS RISK Medical C enter SCREENING] Future Scheduled 2021-04-[address] [...] - Booster for Pfizer series)] Future Scheduled 2020-12-07 COVID-19 VACCINE (3 - [facility] Booster for Pfizer Medical C enter series) [code = COVID-19 VACCINE (3 - Booster for Pfizer series)] Future Scheduled 2020-12-07 COVID-19 VACCINE (3 - [facility] 00:[facility]:00 Booster for Pfizer Medical C enter series) [code = COVID-19 VACCINE (3 - Booster for Pfizer series)] Future Scheduled 2020-12-07 COVID-19 VACCINE (3 - [facility] 00:00:00 Booster for Pfizer Medical C enter series) [code = COVID-19 VACCINE (3 - Booster for Pfizer series)] Future Scheduled 2020-12-07 COVID-19 VACCINE (3 - [facility] 00:00:00 Booster for Pfizer Medical C enter series) [code = COVID-19 VACCINE (3 - Booster for Pfizer series)] Future Scheduled 2020-12-07 COVID-19 VACCINE (3 - [facility] 00:00:00 Booster for Pfizer Medical C enter series) [code = COVID-19 VACCINE (3 - Booster for Pfizer series)] Future Scheduled 2020-09-01 COVID-19 VACCINE (3 - [facility] 00:00:00 Booster for Pfizer Medical C enter series) [code = COVID-19 VACCINE (3 - Booster for Pfizer series)] Future Scheduled 2020-09-01 COVID-19 VACCINE (3 - [facility] [...] 00:00:00 (1 of 1 - Medical Center [id number] PCV13) [code = PNEUMOCOCCAL 65+ YRS (1 of 1 - [id number] PCV13)] Future Scheduled 2006 PNEUMOCOCCAL 65+ YRS [facility] Test 00:00:00 (1 - PCV) [code = Medical Ce nter PNEUMOCOCCAL 65+ YRS (1 - PCV)] Future Scheduled 2006 PNEUMOCOCCAL 65+ YRS [facility] Test 00:00:00 (1 - PCV) [code = Medical Ce nter PNEUMOCOCCAL 65+ YRS (1 - PCV)] Future Scheduled 2006 PNEUMOCOCCAL 65+ YRS [facility] Test 00:00:00 (1 - PCV) [code = Medical Ce nter PNEUMOCOCCAL 65+ YRS (1 - PCV)] Future Scheduled 2006 PNEUMOCOCCAL 65+ YRS [facility] Test 00:00:00 (1 - PCV) [code = Medical Ce nter PNEUMOCOCCAL 65+ YRS (1 - PCV)] Future Scheduled 2006 PNEUMOCOCCAL 65+ YRS [facility] Test 00:00:00 (1 - PCV) [code = Medical Ce nter PNEUMOCOCCAL 65+ YRS (1 - PCV)] Future Scheduled 2006 PNEUMOCOCCAL 65+ YRS [facility] Test 00:00:00 (1 - PCV) [code = Medical Ce nter PNEUMOCOCCAL 65+ YRS (1 - PCV)] Future Scheduled 2006 PNEUMOCOCCAL 65+ YRS [facility] Test 00:00:00 (1 - PCV) [code = Medical Ce nter PNEUMOCOCCAL 65+ YRS (1 - PCV)] Future Scheduled 2006 PNEUMOCOCCAL 65+ YRS [facility] [...] [facility] 00:00:00 SCAN] [facility] Future Scheduled 1941 DXA SCAN [code = DXA [facility] 00:00:00 SCAN] [facility] Future Scheduled 1941 DXA SCAN [code = DXA [facility] Test 00:00:00 SCAN] [facility] Future Scheduled 1941 DXA SCAN [code = DXA [facility] 00:00:00 SCAN] [facility] Future Scheduled 1941 DXA SCAN [code = DXA [facility] 00:00:00 SCAN] [facility] Future Scheduled 1941 DXA SCAN [code = DXA [facility] 00:00:00 SCAN] [facility] Future Scheduled 1941 DXA SCAN [code = DXA [facility] 00:00:00 SCAN] [facility] Future Scheduled 1941 DXA SCAN [code = DXA [facility] 00:00:00 SCAN] [facility] Future Scheduled [facility] [code = 992853224] Future Scheduled SHINGLES VACCINES (#1) M ethodist [...] Date/Time Type Type Clinicians Facility Department ID 2022-10-15 Outpatient Amadou Linda [facility] [id number] [facility] 19:23:18 44 [facility] 2022-02-19 Outpatient Kenia Torres [facility] [id number] Common 09:25:03 [facility] 2022-02-18 Outpatient Kenia Torres [facility] [id number] Common 13:53:02 [facility] 2022-01-06 Inpatient Amadou Diaz [facility] [id number] [facility] 10:00:00 81 [facility] 2021-10-23 Outpatient Ken[facility] [id number] Common 10:58:02 [facility] 2021-10-14 Outpatient Kenia Torres [facility] [id number] Common 08:43:01 [facility] 2021-08-26 [facility] [id number] Common 16:25:02 [facility] 2021-08-21 [facility] [id number] Common 14:23:02 [facility] 2021-05-16 Outpatient 3 [id number] [facility] OTH [facility] 13:02:17 1006 [facility] 2021-05-16 Outpatient 3 [id number] ENCPL REF [facility] 12:59:17 0929 [facility] 2021-05-15 [facility] [id number] Common 13:11:24 [id number] [facility] 2020-12-03 Inpatient ER CHELSEA SMITH Cardiology [id number] [facility] 22:07:00 DOMINIQUE 2023-02-10 2023-02-10 Outpatient MHIE MHIE [id number] [facility]oria 13:00:00 13:00:00 26 jm Arzate 2022-12-10 2022-12-10 Outpatient MHIE MHIE [id number] [facility] 11:45:00 11:45:00 28 l Huey 2022-11-19 2022-11-19 Outpatient MHIE MHIE [id number] [facility]oria 09:00:00 09:00:00 27 jm Arzate 2022-11-04 2022-11-05 Outpatient MHIE MNA [id number] [facility] 18:00:00 04:59:59 Neurology 25 l Abigail Arzate 2022-11-04 2022-11-04 Outpatient JOSE Pat MISCHER [id number] 13:00:00 23:59:59 Chin 25 Rickey 2022-11-04 2022-11-04 Outpatient MHIE MHIE [id number] [facility] 13:00:00 13:00:00 25 jm Arzate 2022-07-16 2022-07-17 Outpatient MHIE MNA [id number] [facility] 16:15:00 04:59:59 Neurology 24 l Abigail Arzate 2022-07-16 2022-07-16 Outpatient KATERYNA PatSCHER MHMISCHER [id number] 11:15:00 23:59:59 Chin 24 Rickey 2022-07-16 2022-07-16 Outpatient MHIE MHIE [id number] [facility]oria 11:15:00 11:15:00 24 jm Arzate 2022-07-09 2022-07-09 Outpatient Amadou Diaz [facility] LA0 [id number] [facility] 06:47:00 06:47:00 44 [facility] 2022-06-24 2022-06-24 Outpatient MHIE MHIE [id number] Memoria 13:30:00 13:30:00 24 jm Arzate 2022-04-10 2022-04-10 OFFICE STLMLC STLMLC [id number] Co mmon 00:00:00 00:00:00 VISIT EST Spir it PT LEVEL 3 - [facility] 2022-03-25 2022-03-26 Outpatient MHIE MNA [id number] Memoria 21:00:00 05:59:59 Neurology 23 l Abigail Arzate 2022-03-25 2022-03-26 Outpatient MHIE MNA [id number] [facility]oria 21:00:00 05:59:59 Neurology 23 l Abigail Arzate 2022-03-25 2022-03-25 Outpatient KATERYNA PatSCHER MHMISCHER [id number] 15:00:00 23:59:59 Chin 23 Rickey 2022-03-25 2022-03-25 Outpatient MHIE MHIE [id number] Memoria 15:00:00 15:00:00 23 jm Arzate 2022-02-24 2022-02-24 (TEL) STLMLC STLMLC [id number] Co mmon 00:00:00 00:00:00 [facility] 2022-02-20 2022-02-20 OFFICE STLMLC STLMLC [id number] Co mmon 00:00:00 00:00:00 VISIT EST Spir it PT LEVEL 3 [facility] 2021-11-27 2021-11-27 OFFICE STLMLC STLMLC [id number] Co mmon 00:00:00 00:00:00 VISIT EST Spir it PT LEVEL 3 [facility] 2021-11-06 2021-11-06 OFFICE STLMLC STLMLC [id number] Co mmon 00:00:00 00:00:00 VISIT NEW Spir it PT LEVEL 3 [facility] 2021-10-23 2021-10-23 OFFICE STLMLC STLMLC [id number] Co mmon 00:00:00 00:00:00 VISIT EST Spir it PT LEVEL 3 [facility] 2021-09-24 2021-09-25 [facility] [id number] 04:59:59 r Neurology 19 l Abigail Arzate 2021-09-24 2021-09-25 Outpatient nullFlavo MNA [id number] Memoria 21:15:00 04:59:59 r Neurology 19 l Abigail Arzate 2021-09-24 2021-09-24 Outpatient FERMIN PatMISCHER MHMISCHER [id number] 16:15:00 23:59:59 Chin 19 Rickey 2021-09-24 2021-09-24 Outpatient MHIE MHIE [id number] [facility] 16:15:00 16:15:00 19 l Huey 2021-09-04 2021-09-04 Orders Doctor STEPHANIE [id number] Univers 00:00:00 00:00:00 Only Unassigned, JANE [id number] ity of [place] [facility] [id number] [place]ba as [phone] [place] [id number] [address] 2021-08-28 2021-08-28 (TEL) STLMLC STLMLC [id number] Co mmon 00:00:00 00:00:00 [facility] 2021-08-26 2021-08-26 [facility] [id number] Co mmon 00:00:00 00:00:00 VISIT NEW Spir it PT LEVEL 3 - [facility] 2021-08-13 2021-08-13 Telephone Lety [facility] [id number] [id number] Univers 00:00:00 00:00:00 [facility] [id number] it y of [place] 4.2.7.2.686 Simba as XAVI?BLEA [phone] Tn dical [address] OFFICE [facility] 2021-07-24 2021-07-24 Outpatient R [facility] [id number] Univers 14:30:00 15:15:52 [facility] 2021-07-24 2021-07-24 [facility] [id number] Univers 14:30:00 15:15:[address] [facility] [id number] it [facility] 4.2.7.2.686 Simba as XAVI?BLEA [phone] Tn dacia[address] OFFICE [facility] 2021-07-24 2021-07-24 [facility] [id number] Univers 14:45:00 14:45:00 [facility] 2021-07-18 2021-07-18 Office [facility] [id number] Univers 10:15:00 10:30:[address] [facility] [id number] it [facility] 4.2.7.2.686 Simba as XAVI?BLEA [phone] Tn dic[address] OFFICE [facility] 2021-07-18 2021-07-18 Outpatient R [facility] [id number] Univers 10:15:00 10:15:00 [facility] 2021-07-18 2021-07-18 Outpatient R [facility] [id number] Univers 10:15:00 10:15:00 [facility] 2021-06-04 2021-06-04 Ambulatory nullFlavo MNA [id number] Memoria 20:15:00 20:15:00 Pre-Reg r Neurology 22 l Abigail Arzate 2021-06-04 2021-06-04 Ambulatory nullFlavo MNA [id number] Memoria 20:15:00 20:15:00 Pre-Reg r Neurology 22 l Abigail Arazte 2021-06-04 2021-06-04 Outpatient MHIE DAYAN [id number] [facility] 14:15:00 14:15:00 22 l Huey 2021-06-04 2021-06-04 [id number] 14:15:00 14:15:00 Chin Leno Rickey 2021-05-31 2021-05-31 Orders Doctor STEPHANIE 1.2.840.114 [id number] Univers 00:00:00 00:00:00 Only Unassigned, JANE [id number] ity of [place] [facility] 4.2.7.2.686 Simba as [phone] [address] 2021-05-22 2021-05-22 Orders Doctor STEPHANIE 1.2.840.114 [id number] Univers 00:00:00 00:00:00 Only Unassigned, JANE [id number] ity of [place] [facility] 4.2.7.2.686 Simba as [phone] [address] 2021-05-14 2021-05-14 Telephone [facility] 1.2.840.114 [id number] Univers 00:00:00 00:00:00 [facility] HEALTH [id number] it y of [place] 4.2.7.2.686 Simba as XAVI?BLEA [id number] Tn diczuly [address] OFFICE [facility] 2021-05-09 2021-05-09 Telephone [facility] 1.2.840.114 [id number] Univers 00:00:00 00:00:00 Laura L HEALTH [id number] it y of [place] 4.2.7.2.686 Simba as XAVI?BLEA [phone] Tn diczuly KNEY [address] MEDICAL OFFICE BUILDING 2021-05-07 2021-05-08 Outpatient nullFlavo MNA [id number] Memoria 19:15:00 05:59:59 r Neurology 21 l Abigail Arzate 2021-05-07 2021-05-08 Outpatient nullFlavo MNA [id number] Memoria 19:15:00 05:59:59 r Neurology 21 l Abigail Arzate 2021-05-07 2021-05-07 Outpatient Adilia, MISCHER MHMISCHER [id number] 13:15:00 23:59:59 Chin 21 Rickey 2021-05-07 2021-05-07 Outpatient MHIE MHIE [id number] Memoria 13:15:00 13:15:00 21 jm Arzate 2021-04-23 2021-04-24 Outpatient nullFlavo MNA [id number] Memoria 22:00:00 05:59:59 r Neurology 20 l Abigail Arzate 2021-04-23 2021-04-24 Outpatient nullFlavo MNA [id number] Memoria 22:00:00 05:59:59 r Neurology 20 l Abigail Arzate 2021-04-23 2021-04-23 Outpatient Adilia MISCHER MHMISCHER [id number] 16:00:00 23:59:59 Chin 20 Rickey 2021-04-23 2021-04-23 Outpatient MHIE MHIE [id number] Memoria 16:00:00 16:00:00 20 jm Arzate 2021-04-18 2021-04-18 Telephone Laurent [facility] 1.2.840.114 [id number] Univers 00:00:00 00:00:[address] [facility] [id number] it [facility] 4.2.7.2.686 Simab as XAVI?BLEA [phone] Tn cong [address] MEDICAL OFFICE BUILDING 2021-04-17 2021-04-17 Outpatient R [facility] [id number] Univers 15:45:00 23:59:00 LAURA taylor [facility] 2021-04-17 2021-04-17 [facility] Laurent [facility] 1.2.840.114 [id number] Univers 15:45:00 23:59:00 Encounter Laura WARREN 350.1.13.10 ity of [place] 4.2.7.2.686 Simba as XAVI?BLEA [id number] Me cong ROJO 809 [facility] OFFICE [facility] 2021-04-17 2021-04-17 Office Laurent [facility] 1.2.560.602 [id number] Univers 15:00:00 16:28:08 Visit Laura WARREN 350.1.13.10 it y of [place] 4.2.7.2.686 Simba as XAVI?BLEA [phone] Tn cong ROJO 198 [facility] OFFICE [facility] 2021-04-17 2021-04-17 [facility] [id number] Univers 15:00:00 16:28:08 LAURA ity of [facility] 2021-04-15 2021-04-15 Telephone [facility] 1.2.840.114 [id number] Univers 00:00:00 00:00:00 Laura Bush [facility] 350.1.13.10 it y of [place] 4.2.7.2.686 Simba as XAVI?BLEA [phone] Tn cong ROJO 198 [facility] OFFICE [facility] 2021-03-29 2021-03-30 Outpatient nullFlavo MNA [id number] Memoria 17:00:00 05:59:59 r Neurology 18 l Keithcash Pennann 2021-03-29 2021-03-30 Outpatient nullFlavo MNA [id number] Memoria 17:00:00 05:59:59 r Neurology 18 l Abigail Arzate 2021-03-29 2021-03-29 Outpatient FERMIN PatMISCHER MHMISCHER [id number] 11:00:00 23:59:59 Chin Lang 2021-03-29 2021-03-29 Outpatient DICK JENNINGS [id number] [facility]oria 11:00:00 11:00:00 18 jm Huey 2021-03-26 2021-03-26 Orders Doctor BROWN 1.2.840.114 [id number] Univers 00:00:00 00:00:00 Only Unassigned, JANE 350.1.13.10 ity of [place] [facility] 4.2.7.2.686 Simba as [phone] [address] 2021-03-25 2021-03-25 Telephone Laurent [facility] 1.2.840.114 [id number] Univers 00:00:00 00:00:00 Laura L HEALTH 350.1.13.10 it y of [place] 4.2.7.2.686 Simba as XAVI?BLEA [id number] Tn cong ROJO [address] [place] MEDICAL OFFICE [facility] 2021-03-23 2021-03-23 Orders Doctor STEPHANIE 1.2.840.114 [id number] Univers 00:00:00 00:00:00 Only Unassigned, JANE 350.1.13.10 ity of [place] [facility] 4.2.7.2.686 Simba as [phone] [address] 2021-03-22 2021-03-22 Telephone [facility] 1.2.840.114 [id number] Univers 00:00:00 00:00:00 Laura L HEALTH 350.1.13.10 it y of [place] 4.2.7.2.686 Simba as XAVI?BLEA [phone] Tn cong ROJO 198 [facility] OFFICE [facility] 2021-03-18 2021-03-18 Orders Doctor STEPHANIE 1.2.840.114 [id number] Univers 00:00:00 00:00:00 Only Unassigned, JANE 350.1.13.10 ity of [place] [facility] 4.2.7.2.686 Simba as [phone] [address] 2021-03-12 2021-03-12 Telephone Lety [facility] 1.2.457.795 [id number] Univers 00:00:00 00:00:00 Jonathon S HEALTH 350.1.13.10 it y of [place] 4.2.7.2.686 Ismba as XAVI?BLEA [phone] Tn cong ROJO 198 [facility] OFFICE [facility] 2021-03-04 2021-03-04 Office Laurent [facility] [id number] Univers 13:34:19 14:01:40 Visit Laura L HEALTH [id number] it y of [place] [id number] Simba as XAVI?BLEA [phone] Tn cong ROJO 198 [facility] OFFICE [facility] 2021-03-04 2021-03-04 Outpatient R [facility]ENT [facility] [id number] Univers 13:30:00 14:01:40 LAURA taylor [facility] 2021-03-04 2021-03-04 [facility] [id number] Univers 13:30:00 13:30:00 LAURAEREN taylor [facility] 2021-01-30 2021-01-30 [facility] [id number] Univers 13:00:00 23:59:00 Encounter Laura Bush [employer] [id number] ity of [place] [id number] Simba as Xavi?Blea [phone] Tn cong rojo 809 [facility] Office [facility] 2021-01-30 2021-01-30 Office [facility] [id number] Univers 12:47:10 14:01:14 Visit Laura Bush [employer] [id number] it y of [place] [id number] Simba as Xavi?Blea [phone] Tn cong rojo 198 [facility] Office [facility] 2021-01-30 2021-01-30 [facility] [id number] Univers 13:00:00 13:00:00 LARUA taylor [facility] 2021-01-08 2021-01-08 Telephone [facility] [id number] Univers 00:00:00 00:00:00 Laura Bush [employer] Solutions 350.1.13.10 it y of [place] 4.2.7.2.686 Ismba as Xavi?Blea [phone] Tn cong rojo 198 [facility] Office [facility] 2021-01-02 2021-01-02 Office [facility] 1.2.454.894 [id number] Univers 14:31:57 15:14:33 Visit Laura Bush [employer] 350.1.13.10 it y of [place] 4.2.7.2.686 Simba as Xavi?Blea [phone] Tn cong seth [address] [place] [address] Medical Office Building 2021-01-02 2021-01-02 Outpatient R LAURENT, [facility] [id number] [facility] 14:45:00 14:45:00 LAURA ity [facility] 2021-01-02 2021-01-02 Orders Doctor STEPHANIE 1.2.840.114 [id number] Univers 00:00:00 00:00:00 Only Unassigned, JANE 350.1.13.10 ity of [place] [facility] 4.2.7.2.686 Simba as [phone] [address] 2021-01-02 2021-01-02 Orders Doctor STEPHANIE 1.2.840.114 [id number] Univers 00:00:00 00:00:00 Only Unassigned, JANE 350.1.13.10 ity of [place] [facility] 4.2.7.2.686 Simba as [phone] [address] 2020-12-31 2020-12-31 Javed Diaz, [facility] [id number] 00:00:00 00:00:00 [facility] 2020-12-03 2020-12-09 [facility] Dominique Reynoso [facility] [id number] [facility] 22:07:00 12:43:00 Encounter Arielle Goetzak, Yashash D [facility] 2020-12-08 2020-12-08 Orders [facility] [id number] 00:00:00 00:00:00 Only [facility] 2020-12-04 2020-12-04 Travel [facility] [id number] [facility] 00:[facility]00 00:[facility]00 [facility] 2020-11-27 2020-11-28 Outpatient nullFlavo MNA [id number] Memoria 20:15:00 04:59:59 r Neurology 17 l Abigail Arzate 2020-11-27 2020-11-28 Outpatient nullFlavo MNA [id number] Memoria 20:15:00 04:59:59 r Neurology 17 l Abigail Arzate 2020-11-27 2020-11-27 Outpatient [facility]ERMIN [facility]ANIEL [facility] [id number] 15:15:00 23:59:59 Chin 17 Rickey 2020-11-27 2020-11-27 Outpatient MHIE MHIE [id number] Memoria 15:15:00 15:15:00 17 jm Arzate 2020-09-25 2020-09-25 Ambulatory nullFlavo MNA [id number] Memoria 19:30:00 19:30:00 Pre-Reg r Neurology 14 l Abigail Arzate 2020-09-25 2020-09-25 Ambulatory nullFlavo MNA [id number] Memoria 19:30:00 19:30:00 Pre-Reg r Neurology 14 l Abigail Arzate 2020-09-25 2020-09-25 Outpatient MHIE MHIE [id number] Memoria 14:30:00 14:30:00 14 jm Arzate 2020-09-25 2020-09-25 Outpatient Adilia [facility]DANIEL [facility] [id number] 14:30:00 14:30:00 Chin 14 Rickey 2020-08-27 2020-08-28 Outpatient nullFlavo MNA [id number] Memoria 18:15:00 04:59:59 r Neurology 16 jm Arzate 2020-08-27 2020-08-28 Outpatient nullFlavo MNA [id number] Memoria 18:15:00 04:59:59 r Neurology 16 l Abigail Pennann 2020-08-27 2020-08-27 Outpatient [facility]ER [facility] [id number] 13:15:00 23:59:59 Chin 16 Rickey 2020-08-27 2020-08-27 [place] 31759.2.840.1 [id number] Methodi 08:36:31 23:59:00 Encounter Renan 44259.1.[address] 3.430.2.7 Hospit a .3.376256 l .8 2020-08-27 2020-08-27 Outpatient MHIE MHIE [id number] Memoria 13:15:00 13:15:00 16 jm Arzate 2020-07-23 2020-07-24 Outpatient nullFlavo MNA [id number] Memoria 18:15:00 04:59:59 r Neurology 15 l Abigail Arzate 2020-07-23 2020-07-24 Outpatient nullFlavo MNA [id number] Memoria 18:15:00 04:59:59 r Neurology 15 l Abigail Arzate 2020-07-23 2020-07-23 [facility] [id number] 13:15:00 23:59:59 Chin 15 Rickey 2020-07-23 2020-07-23 Outpatient MHIE MHIE [id number] Memoria 13:15:00 13:15:00 [facility]-07[facility]03 2020-07-03 Office Canela, 1.2.840.1 [id number] Methodi 13:03:28 13:29:49 Visit Renan [address]603.1.[address] 3.430.2.7 Hospit a .3.746595 l .8 2020-07-03 2020-07-03 Travel 1.2.840.1 1.2.691.835 [id number] Methodi 00:00:00 00:00:[address] 3.430.2.7 0.2.7.3.698 Ho spita .3.775781 084.8 l .8 2020-06-26 2020-06-27 Outpatient nullFlavo MNA [id number] Memoria 20:30:00 05:59:59 r Neurology 13 l Abigail Arzate 2020-06-26 2020-06-27 Outpatient nullFlavo MNA [id number] Memoria 20:30:00 05:59:59 r Neurology 13 jm Arzate 2020-06-26 2020-06-26 Outpatient JOSE Pat [facility] [id number] 14:30:00 23:59:59 Chin 13 Rickey 2020-06-26 2020-06-26 Outpatient MHIE MHIE [id number] Memoria 14:30:00 14:30:00 13 jm Arzate 2020-05-08 2020-05-08 Outpatient MHIE MHIE [id number] Memoria 14:00:00 14:00:00 10 l [place] 2020-05-08 2020-05-08 Outpatient MHIE MHIE [id number] Memoria 14:00:00 14:00:00 10 l [place] 2020-03-28 2020-03-29 Outpatient nullFlavo MNA [id number] Memoria 20:15:00 05:59:59 r Neurology 12 l Abigail Arzate 2020-03-28 2020-03-29 Outpatient nullFlavo MNA [id number] Memoria 20:15:00 05:59:59 r Neurology 12 l Abigail Arzate 2020-03-28 2020-03-28 [facility] [id number] 14:15:00 23:59:59 Chin 12 Rickey 2020-03-28 2020-03-28 Outpatient MHIE MHIE [id number] Memoria 14:15:00 14:15:00 12 jm [place] 2020-02-27 2020-02-28 Outpatient nullFlavo MNA [id number] Memoria 20:15:00 05:59:59 r Neurology 11 l Abigail Pennann 2020-02-27 2020-02-28 Outpatient nullFlavo MNA [id number] Memoria 20:15:00 05:59:59 r Neurology 11 l Abigail Huey 2020-02-27 2020-02-27 [id number] 14:15:00 23:59:59 Chin 11 Rickey 2020-02-27 2020-02-27 Outpatient MHIE MHIE [id number] Memoria 14:15:00 14:15:00 11 jm [place] 2020-01-05 2020-01-06 Outpatient nullFlavo MNA [id number] Memoria 20:00:00 04:59:59 r Neurology 09 l Abigail [place] 2020-01-05 2020-01-06 Outpatient nullFlavo MNA [id number] Memoria 20:00:00 04:59:59 r Neurology 09 l Abigail [place] 2020-01-05 2020-01-05 [facility] [id number] 15:00:00 23:59:59 Chin 09 Rickey 2020-01-05 2020-01-05 Outpatient MHIE MHIE [id number] Memoria 15:00:00 15:00:00 09 l [place] 2019-11-24 2019-11-25 Outpatient nullFlavo MNA [id number] Memoria 19:30:00 04:59:59 r Neurology 08 l Abigail Arzate 2019-11-24 2019-11-25 Outpatient nullFlavo MNA [id number] Memoria 19:30:00 04:59:59 r Neurology 08 l Abigail Arzate 2019-11-24 2019-11-24 [facility] [id number] 14:30:00 23:59:59 Chin 08 Rickey 2019-11-24 2019-11-24 Ambulatory nullFlavo MNA [id number] Memoria 19:30:00 19:30:00 Pre-Reg r Neurology 07 l Keith Huey 2019-11-24 2019-11-24 Ambulatory nullFlavo MNA [id number] Memoria 19:30:00 19:30:00 Pre-Reg r Neurology 07 l Keith [place] 2019-11-24 2019-11-24 Outpatient MHIE MHIE [id number] Memoria 14:30:00 14:30:00 08 l [place] 2019-11-24 2019-11-24 Outpatient MHIE MHIE [id number] Memoria 14:30:00 14:30:00 07 l [place] 2019-11-24 2019-11-24 Outpatient JO[facility] [id number] 14:30:00 14:30:00 Chin 07 Rickey 2019-09-21 2019-09-22 Outpatient nullFlavo MNA [id number] Memoria 18:30:00 04:59:59 r Neurology 06 l Keithcash Pennann 2019-09-21 2019-09-22 Outpatient nullFlavo MNA [id number] Memoria 18:30:00 04:59:59 r Neurology 06 l Keithcash Pennann 2019-09-21 2019-09-21 Outpatient JOSE Pat [facility] [id number] 13:30:00 23:59:59 Chin 06 Rickey 2019-09-21 2019-09-21 Outpatient MHIE MHIE [id number] Memoria 13:30:00 13:30:00 06 jm [place] 2019-06-21 2019-06-22 Outpatient nullFlavo MNA [id number] Memoria 19:45:00 05:59:59 r Neurology 05 l Abigail Arzate 2019-06-21 2019-06-22 Outpatient nullFlavo MNA [id number] Memoria 19:45:00 05:59:59 r Neurology 05 l Abigail [place] 2019-06-21 2019-06-21 Outpatient Ad[facility] [id number] 13:45:00 23:59:59 Chinrangel Lang 2019-06-21 2019-06-21 Outpatient MHIE MHIE [id number] Memoria 13:45:00 13:45:00 05 jm Huey 2019-03-22 2019-03-23 Outpatient nullFlavo MNA [id number] Memoria 19:30:00 05:59:59 r Neurology 04 jm Hayes [place] 2019-03-22 2019-03-23 Outpatient nullFlavo MNA [id number] Memoria 19:30:00 05:59:59 r Neurology 04 jm Hayes [place] 2019-03-22 2019-03-22 Outpatient Ad[facility] [id number] 13:30:00 23:59:59 Chinrangel Lang 2019-03-22 2019-03-22 Outpatient MHIE MHIE [id number] Memoria 13:30:00 13:30:00 04 jm [place] 2018-12-21 2018-12-22 Outpatient nullFlavo MNA [id number] Memoria 19:15:00 04:59:59 r Neurology 03 jm Arzate 2018-12-21 2018-12-22 Outpatient nullFlavo MNA [id number] Memoria 19:15:00 04:59:59 r Neurology 03 jm Keith Huey 2018-12-21 2018-12-21 Outpatient Ad[facility] [id number] 14:15:00 23:59:59 Chin Maylin Lang 2018-12-21 2018-12-21 Outpatient MHIE MHIE [id number] Memoria 14:15:00 14:15:00 03 jm Arzate 2018-06-22 2018-06-22 Outpatient MHIE MHIE [id number] Memoria 13:45:00 13:45:00 02 jm Arzate 2018-06-22 2018-06-22 Outpatient MHIE MHIE [id number] Memoria 13:45:00 13:45:00 02 jm Arzate 2017-12-22 2017-12-22 Outpatient MHIE MHIE [id number] Memoria 13:30:00 13:30:00 01 jm Arzate 2017-12-22 2017-12-22 Outpatient MHIE MHIE [id number] Memoria 13:30:00 13:30:00 01 jm Arzate 2017-08-14 2017-08-14 Outpatient MHIE MHIE [id number] Memoria 14:30:00 14:30:00 00 jm Arzate 2017-08-14 2017-08-14 Outpatient MHIE MHIE [id number] Memoria 14:30:00 14:30:00 00 jm Arzate Results Test Description Test Time Test Comments Results Result Comments Source SURGICAL 2022-07-15 15:13:00 Test Item Value Reference Range Interpretation Comme nts SURGICAL RUN DATE: (test 07/15/22 [facility] - LAB PAGE 1 RUN TIME: 1514 Specimen Inquiry RUN USER: INTERFACE code = PATIENT: AGNES TERRELL #: [id number] LOC: SOFIA Metz #: [id number] AGE/SX: 82/F ROOM: RE07/09/22REG DR: Amadou Linda MD : 41 BED: DIS: STATUS: TIA Ibrahim TLOC: SPEC #: [id number] RECD: 07/10/22723 STATUS: SONAL [facility] #: [id number] AURELIO: 06/11/22908 [facility] DR: Amadou Linda MD ENTERED: 07/10/22 SP TYPE: SURGICAL OTHR DR: Kenia Torres MD ORDERED: 08517, 93778, 18925, ANATOMIC SPEC, SPECIMEN TRAC K COPIES TO: Kenia Torres MD [address] [place] [id number] Amadou Linda MD [address] [place] [address] PROCEDURES: 25338 (07/10/22) 13784 (06/19) 29452 (07/15/22) SPECIMEN TRACK (07/10/22) TISSUES: A. GASTRIC MUCOSA - ANTRUM BIOP SY B. GASTRIC MUCOSA - BODY AND FUNDUS BIOPSY C. ESOPHAGUS BIOPSY FINAL DIAGNOSIS A. Stomach, antrum , endoscopic biopsy:- Healing/reparative/chemical gastropathy changes, mild; associated mild chronicinfla mmation - Negative for intestinal metaplasia - Negative for Helicobacter pylori (immunohistochemical stain) B.Stomach, fundus, endoscopic biopsy:- Mild superficial, chronic inflammation, non specific- Negative for intestinal metaplasia - Negative for Helicobacter pylori C. Esophagus, endoscopic biopsy :- Squamous epithelium with focal desquamative changes and mild vascular congestion- Negative for gla ndular epithelium/intestinal metaplasia/dysplasia- Negative for fungal organisms (PAS stain) Commen t: Suggest clinical correlation. CONTINUED ON NEXT PAGE RUN DATE: 07/15/22 [facility] PAGE 2 RUN TIME: 1514 Specimen Inquiry RUN USER: INTERFACE SPEC #: [id number] PATIENT: AGNES CALABRESE #[id number] (Continued) GROSS DESCRIPTION A. Gastric antrum biopsy. It consists of single tissue fragment measuring 4 mm. All as A1. B. Gastric body and fund us biopsy. It consists of 2 tissue fragments measuring 2 and 3 mm.All as B1. C. Esophagus biopsy. It cons ists of a single tissue fragment measuring 2 mm. All as C1. Technical tissue processing and slide prepara tion performed at [address] , [place] [address] Unless gross only, the diagnosis is based upon microscopic examination.Immunohistochemistry: This test was developed and its performanc e characteristicsdetermined by this laboratory. It has not been approved nor does it need approval by the USFDA. Appropriate positive and negative controls are reviewed and judged to be acceptable.This labora tory is certified under the Clinical Laboratory Improvement Amendments (CLIA-88)as qualified to per form high complexity clinical laboratory testing. MICROSCOPIC DESCRIPTION Microscopic examination is p erformed on all specimens and the findings areincorporated into the final diagnosis. Please see diagnosis for findings. Signed SIGNATURE ON FILE Kofi Perera 07/15/22 1513 END OF REPORT GLUCOSE BEDSIDE [id number] 10:03:00 Test Item Value Reference Range Interpretation Comments GLUCOSE BEDSIDE TESTING (test code 106 mg/dL 70-110 N = GLUBED) BASIC METABOLIC [id number] 16:08:00 Test Item Value Reference Range Interpretation Comments SODIUM (test code = 139 mmol/L 134-147 N NA) POTASSIUM (test 4.6 mmol/L 3.4-5.0 N code = K) CHLORIDE (test code 111 mmol/L 100-108 H = CL) CARBON DIOXIDE 26 mmol/L 21-32 N (test code = CO2) ANION GAP (test 2.0 GAP calc 4.0-15.0 L code = GAP) GLUCOSE (test code 83 MG/DL 70-110 N = GLU) BLOOD UREA NITROGEN 13 MG/DL 7-18 N (test code = BUN) GLOMERULAR 50 estGFR >60 L The Glomerular FILTRATION RATE Filtration R ate is a (test code = GFR) calculated parameterbased on serum Creatinin e, patient age and sex. GFR valuesless than 60 mL/min/1.73 squ are meters are jabari cative ofChronic Kidne y Disease. Values less than 15 mL/min/1.73squa re meters indicate Kidney failure. The calculation for GFR is based on the CK D-EPI (2020) calculat ion. This formulais race indifferent and is the recommended for nicole for GFRby the N atfirst[facility] on for Adults.The GFR will not calculate i f the sex is unknown or if thepatient's ag e is <18 years. CREATININE (test 1.1 MG/DL 0.6-1.0 H code = CREAT) CALCIUM (test code 9.3 MG/DL 8.5-10.1 N = CA) CBC W/AUTO [id number] 16:07:00 Test Item Value Reference Range Interpretation Comments WHITE BLOOD CELL (test code = 6.4 K/mm3 3.5-11.0 N WBC) RED BLOOD CELL (test code = 4.95 M/mm3 4.70-6.10 N RBC) HEMOGLOBIN (test code = HGB) 15.5 G/DL 10.4-14.9 H HEMATOCRIT (test code = HCT) 49.2 % 31.5-44.1 H MEAN CELL VOLUME (test code = 99.4 Fl 84.5-98.6 H MCV) MEAN CELL HGB (test code = MCH) 31.3 pg 27.0-34.2 N MEAN CELL HGB CONCETRATION 31.5 G/DL 31.5-34.0 N (test code = MCHC) RED CELL DISTRIBUTION WIDTH 14.2 SD 11.5-14.5 N (test code = RDW) PLATELET COUNT (test code = 235 K/mm3 150-450 N PLT) MEAN PLATELET VOLUME (test code 9.70 fL 7.0-10.5 N = MPV) NEUTROPHIL % (test code = NT%) 60.6 % 40-76 N IMMATURE GRANULOCYTE % (test 0.5 % 0.0-5.0 N code = IG%) LYMPHOCYTE % (test code = LY%) 27.1 % 20.5-51.1 N MONOCYTE % (test code = MO%) 7.7 % 1.7-9.3 N EOSINOPHIL % (test code = EO%) 3.0 % 0.0-6.0 N BASOPHIL % (test code = BA%) 1.1 % 0.0-2.0 N NUCLEATED RBC % (test code = 0.0 /100WBC% 0.0-1.0 N NRBC%) NEUTROPHIL # (test code = NT#) 3.9 K/mm3 1.8-7.6 N IMMATURE GRANULOCYTE # (test 0.03 x10 3/uL 0.00-0.03 N code = IG#) LYMPHOCYTE # (test code = LY#) 1.7 K/mm3 0.6-3.2 N MONOCYTE # (test code = MO#) 0.5 K/mm3 0.3-1.1 N EOSINOPHIL # (test code = EO#) 0.2 K/mm3 0.0-0.4 N BASOPHIL # (test code = BA#) 0.1 K/mm3 0.0-0.1 N NUCLEATED RBC # (test code = 0.0 K/mm3 0.0-0.1 N NRBC#) MANUAL DIFF REQUIRED (test code NO DIFF/SCN CRITERIA = MDIFF) - XR CHEST 1 [id number] 15:28:00 [facility] 1940 Sex: F Name: AGNES CALABRESE [facility] : 1940 Age/S: 82 / F [address] [place] Unit #: [id number] Loc: [place] [address] Phys: Thien Meek MD Acct: [id number] Dis Date: Status: DEP [facility] PHONE #: [phone] Exam Date: 07/02/2022 0995 FAX #: Reason: PRE OP EXAMS: CPT: [id number] XR CHEST 1 V 40664 Fluoro Time: DAP (Gy m2): Air Kerma (mGy): Location Code: S17 EXAMINATION: - XR CHEST 1 V CLINICAL INDICATION: Female, 82 years year old with PRE OP COMPARISON: None. FINDINGS: Single view(s) of the chest submitted. Support Devices: None. Heart: Cardiac silhouette is enlarged. Mediastinum: Mediastinal contours are normal. Lungs: Prominence of the central pulmonary vasculature. Lungs are well aerated and cl ear. Elevation of the right lung base. Pleura: No pleural effusion is identified. No pneumothorax ispresent. Bones: Postoperative changes involving the cervical spine. IMPRESSION: No evidence of focalconsolidation. at 1528 Reported and signed by: Kenny Villanueva M.D. CC: Kenia Torres MD; Amadou Linda MD; Thien Meek MD PAGE 1 Signed Report Name: AGNES CALABRESE [facility] : 1940 Age/S: 82 / F [address] Unit #: [id number] Loc: [place] [address] Phys: Thien Meek MD Acct: [id number] Dis Date: Status: [facility] PHONE #: [phone] Exam Date: 07/02/2022 1458 FAX #: Reason: PRE OP EXAMS: CPT: [id number] XR CHEST 1 V 72098 Fluoro Time: DAP (Gy m2): Air Kerma (mGy): (Continued) Technologist: VICKY PANCHAL Trnscb Date/Time: 07/02/2022 (1528) [email or web address] Orig Print D/T: S: 07/02/2022 (8479) PAGE 2 Signed Report- XR CHEST 1 [id number] 15:28:00 [facility] : 1940 Sex: F Name: AGNES CALABRESE : 1940 Age/S: 82 / F [address] Unit #: [id number] Loc: [place] [address] Phys: Thien Meek MD Acct: [id number] Dis Date: Status: PRE SDC PHONE #: [phone] Exam Date: 07/02/2022 4244 FAX #: Reason: PRE OP EXAMS: CPT: [id number] XR CHEST 1 V 22797 Fluoro Time: DAP (Gy m2): Air Kerma (mGy): Location Code: S17 EXAMINATION: - XR CHEST 1 V CLINICAL INDICATION: Female, 82 years year old with PRE OP COMPARISON: None. FINDINGS: Single view(s) of the chest submitted. Support Devices: None. Heart: Cardiac silhouette is enlarged. Mediastinum: Mediastinal contours are normal. Lungs: Prominence of the central pulmonary vasculature. Lungs are well aerated and c lear. Elevation of the right lung base. Pleura: No pleural effusion is identified. No pneumothorax is present. Bones: Postoperative changes involving the cervical spine. IMPRESSION: No evidence of focal consolidation. at 1528 Reported and signed by: Kenny Villanueva M.D. CC: Kenia Torres MD; Amadou Linda MD; Thien Meek MD PAGE 1 Signed Report Name: AGNES CALABRESE : 1940 Age/S: 82 / F [address] Unit #: [id number] Loc: [place] [address] Phys: Thien Meek MD Acct: [id number] Dis Date: Status: PRE SDC PHONE #: [phone] Exam Date: 07/02/2022 6611 FAX #: Reason: PRE OP EXAMS: CPT: [id number] XR CHEST 1 V 95003 Fluoro Time: DAP (Gy m2): Air Kerma (mGy): (Continued) Technologist: VICKY PANCHAL Trnscb Date/Time: 07/02/2022 (1528) [email or web address] Orig Print D/T: S: 07/02/2022 (3370) PAGE 2 Signed ReportCOVID 19 INHOUSE [id number] 15:04:00 Test Item Value Reference Range Interpretation Comments COVID 19 INHOUSE AG NEGATIVE Negative Per manu facturer, (test code = negative result s should [id number]) be treated aspr esumptive and, if inconsi stent with clinical signs andsymptoms or necessary for patient man agement, should betested with an alternative mol ecular assay. Negative resultsdo not preclude SA RS-CoV-2 infection and s hould not be usedas the s ole basis for patient man agement decisions. Nega tive results should be considered in t he context of apatient's r ecent exposures, hist ory, presence of cli nicalsigns and symptoms co nsistent with COVID-19. CHEM [id number] 15:57:00 Test Item Value Reference Range Interpretation Comments BUN (test code = BUN) 20 7-[address] [facility] CompBlueannCHEM [id number] 15:57:00 Test Item Value Reference Range Interpretation Comments Creatinine Lvl (test code = Creatinine 1.21 0.60-0.88 Lvl) [facility] CompBlueannCHEM [id number] 15:57:00 Test Item Value Reference Range Interpretation Comments eGFR NON-AFR. PARAGUAYAN (test code = 42 eGFR NON-AFR. PARAGUAYAN) [facility] Quattro WirelessCHEM [id number] 15:57:00 Test Item Value Reference Range Interpretation Comments eGFR (test code = eGFR 49 ) [facility] CompBlueannCHEM [id number] 15:57:00 Test Item Value Reference Range Interpretation Comments B/C Ratio (test code = B/C Ratio) 17 6-22 [facility] UnaepwfSJYYAMKBFAIF5765-10-72 15:57:00 Test Item Value Reference Range Interpretation Comments Sodium Lvl (test code = Sodium Lvl) 138 135-[address] [facility] GjwfdwsFCZKDPPWUBKZ8598-43-35 15:57:00 Test Item Value Reference Range Interpretation Comments Potassium Lvl (test code = Potassium 4.5 3.5-5.3 Lvl) [facility] [id number] 15:57:00 Test Item Value Reference Range Interpretation Comments Chloride Lvl (test code = Chloride Lvl) 106 98-110 [facility] [id number] 15:57:00 Test Item Value Reference Range Interpretation Comments CO2 (test code = CO2) 21 20-32 [facility]YxsrgnmHHSWXPQFUL9072-61-31 15:57:00 Test Item Value Reference Range Interpretation Comments WBC X 10x3 (test code = WBC X 10x3) 7.0 3.8-10.8 [facility]oundMzqfmvnNZJFQBECGQ3813-08-15 15:57:00 Test Item Value Reference Range Interpretation Comments RBC X 10x6 (test code = RBC X 10x6) 4.65 3.80-5.10 [facility] MoundKtreopcUYVLWRVZIX8916-72-19 15:57:00 Test Item Value Reference Range Interpretation Comments Hgb (test code = Hgb) 14.7 11.7-15.5 [facility] MoundVpcuvclJDHRWXPKBQ9192-77-36 15:57:00 Test Item Value Reference Range Interpretation Comments Hct (test code = Hct) 45.1 35.0-45.0 [facility] MoundTimbjmdTGZUNKQHVI5647-56-23 15:57:00 Test Item Value Reference Range Interpretation Comments MCV (test code = MCV) 97.0 80.0-100.0 [facility] MoundJpsdrnsTALPMISKKA6213-28-82 15:57:00 Test Item Value Reference Range Interpretation Comments MCH (test code = MCH) 31.6 pg 27.0-33.0 [facility] CenterOhunfktDRMAXJFRMI8201-98-91 15:57:00 Test Item Value Reference Range Interpretation Comments MCHC (test code = MCHC) 32.6 32.0-36.0 [facility] CenterSeclethGUNKKVKZLC3482-65-29 15:57:00 Test Item Value Reference Range Interpretation Comments RDW (test code = RDW) 12.9 11.0-15.0 [facility] MoundLemeqzlFAGGNWDDMA4182-77-75 15:57:00 Test Item Value Reference Range Interpretation Comments Platelet (test code = Platelet) 241 140-400 [facility] MoundWuhioizECVIBOGHXJ6168-41-03 15:57:00 Test Item Value Reference Range Interpretation Comments MPV (test code = MPV) 10.9 7.5-12.5 [facility] MoundCzrxfjoJVTPYHNLXG4958-83-13 15:57:00 Test Item Value Reference Range Interpretation Comments Neutrophils # (test code = Neutrophils 4060 3339-0187 #) [facility] CenterFwlszbqQGVYHXFYGA0989-41-18 15:57:00 Test Item Value Reference Range Interpretation Comments Lymphocytes # (test code = Lymphocytes 2191 850-3900 #) [facility]BinhzgeSHTFAGZYMK9033-59-67 15:57:00 Test Item Value Reference Range Interpretation Comments Monocytes # (test code = Monocytes #) 511 200-950 [facility]zjvjveJJWDONFNOD7124-63-48 15:57:00 Test Item Value Reference Range Interpretation Comments Eosinophils # (test code = Eosinophils 161 15-500 #) [facility]VqammnbKKISMKLRKG7247-49-61 15:57:00 Test Item Value Reference Range Interpretation Comments Basophils # (test code 77 See_Comment [Aut omated message] The = Basophils #) system which generated this result tra nsmitted reference range : <=200. The reference r guillaume was not used to int erpret this result as normal/abnormal . [facility]oundKzuuejyAAFKPBCZZF6099-51-90 15:57:00 Test Item Value Reference Range Interpretation Comments Segs (test code = Segs) 58 [facility]GhicygxMUJHTYDDDE2416-14-50 15:57:00 Test Item Value Reference Range Interpretation Comments Lymphocytes (test code = Lymphocytes) 31.3 [facility]oundAonbrxpHBURHCGCEK4472-43-21 15:57:00 Test Item Value Reference Range Interpretation Comments Monocytes (test code = Monocytes) 7.3 [facility]LeujlrnZCWMXITELU0252-55-94 15:57:00 Test Item Value Reference Range Interpretation Comments Eosinophils (test code = Eosinophils) 2.3 [facility]oundEyvfoawXGFQBWJCSW0259-72-04 15:57:00 Test Item Value Reference Range Interpretation Comments Basophils (test code = Basophils) 1.1 [facility] ClubGraphic StadiumCHEM WTKOM0173-20-15 15:57:00 Test Item Value Reference Range Interpretation Comments BUN (test code = BUN) 20 7-25 [facility] ClubannApangea Learning [id number] 15:57:00 Test Item Value Reference Range Interpretation Comments Creatinine Lvl (test code = Creatinine 1.21 0.60-0.88 Lvl) [facility] [id number] 15:57:00 Test Item Value Reference Range Interpretation Comments eGFR NON-AFR. PARAGUAYAN (test code = 42 eGFR NON-AFR. PARAGUAYAN) [facility] [id number] 15:57:00 Test Item Value Reference Range Interpretation Comments eGFR (test code = eGFR 49 ) [facility]2022-06-08 15:57:00 Test Item Value Reference Range Interpretation Comments B/C Ratio (test code = B/C Ratio) 17 6-22 [facility]JmckhuyCUNDLADXYYZG2141-00-97 15:57:00 Test Item Value Reference Range Interpretation Comments Sodium Lvl (test code = Sodium Lvl) 138 135-146 [facility] HospitalKvxoqblSALTUDEQXKCP7592-53-47 15:57:00 Test Item Value Reference Range Interpretation Comments Potassium Lvl (test code = Potassium 4.5 3.5-5.3 Lvl) [facility] HospitalNcbvcgxJPJCLJFCNKKP5712-46-10 15:57:00 Test Item Value Reference Range Interpretation Comments Chloride Lvl (test code = Chloride Lvl) 106 98-110 [facility] HospitalEsoxftkQHGTZILSXAQC0467-13-89 15:57:00 Test Item Value Reference Range Interpretation Comments CO2 (test code = CO2) 21 20-32 [facility]oundNqdyiraWTXRJFMZRX5975-26-31 15:57:00 Test Item Value Reference Range Interpretation Comments WBC X 10x3 (test code = WBC X 10x3) 7.0 3.8-10.8 [facility]oundBpxldvdBZCJYCSPKE0646-00-89 15:57:00 Test Item Value Reference Range Interpretation Comments RBC X 10x6 (test code = RBC X 10x6) 4.65 3.80-5.10 [facility]oundHbzzikvZQTCXFRXYO2003-58-03 15:57:00 Test Item Value Reference Range Interpretation Comments Hgb (test code = Hgb) 14.7 11.7-15.5 [facility]oundQoxccdeOYYZBLKYQF1735-53-86 15:57:00 Test Item Value Reference Range Interpretation Comments Hct (test code = Hct) 45.1 35.0-45.0 [facility] MoundBxornjtRFNFWHGCCI9336-25-85 15:57:00 Test Item Value Reference Range Interpretation Comments MCV (test code = MCV) 97.0 80.0-100.0 [facility]oundJzkbkmyYPMOARKPVN1680-94-33 15:57:00 Test Item Value Reference Range Interpretation Comments MCH (test code = MCH) 31.6 pg 27.0-33.0 [facility] MoundUfcckufLBLRNRSYLS3440-74-00 15:57:00 Test Item Value Reference Range Interpretation Comments MCHC (test code = MCHC) 32.6 32.0-36.0 [place] 993312-06-08 15:57:00 Test Item Value Reference Range Interpretation Comments RDW (test code = RDW) 12.9 11.0-15.0 [place] 993312-06-08 15:57:00 Test Item Value Reference Range Interpretation Comments Platelet (test code = Platelet) 241 140-400 [place] 993312-06-08 15:57:00 Test Item Value Reference Range Interpretation Comments MPV (test code = MPV) 10.9 7.5-12.5 [place] 993312-06-08 15:57:00 Test Item Value Reference Range Interpretation Comments Neutrophils # (test code = Neutrophils 4060 4523-0126 #) [facility]oundRuvqjtnYIYDLWXMLZ8250-08-28 15:57:00 Test Item Value Reference Range Interpretation Comments Lymphocytes # (test code = Lymphocytes 2191 850-3900 #) [facility] MoundYqstuafMWPFYMAJMC9009-40-86 15:57:00 Test Item Value Reference Range Interpretation Comments Monocytes # (test code = Monocytes #) 511 200-950 [facility] MoundYcedocyTFZGOXYXFF9095-75-61 15:57:00 Test Item Value Reference Range Interpretation Comments Eosinophils # (test code = Eosinophils 161 15-500 #) [facility] MoundBazauydZPMKMEKPPR1142-34-68 15:57:00 Test Item Value Reference Range Interpretation Comments Basophils # (test code 77 See_Comment [Aut omated message] The = Basophils #) system which generated this result tra nsmitted reference range : <=200. The reference r guillaume was not used to int erpret this result as normal/abnormal . [facility] MoundAfphidsIJJMHGIDPU4592-44-98 15:57:00 Test Item Value Reference Range Interpretation Comments Segs (test code = Segs) 58 [place] [address]-06-08 15:57:00 Test Item Value Reference Range Interpretation Comments Lymphocytes (test code = Lymphocytes) 31.3 [place] [address]-06-08 15:57:00 Test Item Value Reference Range Interpretation Comments Monocytes (test code = Monocytes) 7.3 [place] [address]-06-08 15:57:00 Test Item Value Reference Range Interpretation Comments Eosinophils (test code = Eosinophils) 2.3 [place] 993312-06-08 15:57:00 Test Item Value Reference Range Interpretation Comments Basophils (test code = Basophils) 1.1 [facility]2022-06-08 15:57:00 Test Item Value Reference Range Interpretation Comments BUN (test code = BUN) 20 7- [facility]2022-06-08 15:57:00 Test Item Value Reference Range Interpretation Comments Creatinine Lvl (test code = Creatinine 1.21 0.60-0.88 Lvl) [place] 550002-06-08 15:57:00 Test Item Value Reference Range Interpretation Comments eGFR NON-AFR. PARAGUAYAN (test code = 42 eGFR NON-AFR. PARAGUAYAN) [facility]2022-06-08 15:57:00 Test Item Value Reference Range Interpretation Comments eGFR (test code = eGFR 49 ) [facility]2022-06-08 15:57:00 Test Item Value Reference Range Interpretation Comments B/C Ratio (test code = B/C Ratio) 17 6- [facility] HospitalIbeobzrLINXLGSQGKYB9773-30-01 15:57:00 Test Item Value Reference Range Interpretation Comments Sodium Lvl (test code = Sodium Lvl) 138 135-146 [place] 943432-06-08 15:57:00 Test Item Value Reference Range Interpretation Comments Potassium Lvl (test code = Potassium 4.5 3.5-5.3 Lvl) [facility] HospitalChcypmlBCMDAMLTRFVE0883-43-18 15:57:00 Test Item Value Reference Range Interpretation Comments Chloride Lvl (test code = Chloride Lvl) 106 98-110 [place] 943432-06-08 15:57:00 Test Item Value Reference Range Interpretation Comments CO2 (test code = CO2) 21 20-32 [facility]oundEusgtsvJAIGOUUBNR0262-83-01 15:57:00 Test Item Value Reference Range Interpretation Comments WBC X 10x3 (test code = WBC X 10x3) 7.0 3.8-10.8 [place] 993312-06-08 15:57:00 Test Item Value Reference Range Interpretation Comments RBC X 10x6 (test code = RBC X 10x6) 4.65 3.80-5.10 [place] 993312-06-08 15:57:00 Test Item Value Reference Range Interpretation Comments Hgb (test code = Hgb) 14.7 11.7-15.5 [place] 993312-06-08 15:57:00 Test Item Value Reference Range Interpretation Comments Hct (test code = Hct) 45.1 35.0-45.0 [place] 993312-06-08 15:57:00 Test Item Value Reference Range Interpretation Comments MCV (test code = MCV) 97.0 80.0-100.0 [place] 993312-06-08 15:57:00 Test Item Value Reference Range Interpretation Comments MCH (test code = MCH) 31.6 pg 27.0-33.0 [place] [address]-06-08 15:57:00 Test Item Value Reference Range Interpretation Comments MCHC (test code = MCHC) 32.6 32.0-36.0 [place] 993312-06-08 15:57:00 Test Item Value Reference Range Interpretation Comments RDW (test code = RDW) 12.9 11.0-15.0 [place] 993312-06-08 15:57:00 Test Item Value Reference Range Interpretation Comments Platelet (test code = Platelet) 241 140-400 [facility]oundXncsfjaCADJTKUBWK2663-15-47 15:57:00 Test Item Value Reference Range Interpretation Comments MPV (test code = MPV) 10.9 7.5-12.5 [place] 993312-06-08 15:57:00 Test Item Value Reference Range Interpretation Comments Neutrophils # (test code = Neutrophils 4060 1141-3051 #) [facility]oundNjulybxNPQDSBVYLV2889-54-19 15:57:00 Test Item Value Reference Range Interpretation Comments Lymphocytes # (test code = Lymphocytes 2191 850-3900 #) [place] 993312-06-08 15:57:00 Test Item Value Reference Range Interpretation Comments Monocytes # (test code = Monocytes #) 511 200-950 [place] 993312-06-08 15:57:00 Test Item Value Reference Range Interpretation Comments Eosinophils # (test code = Eosinophils 161 15-500 #) [facility] MoundRvuhbyjVYYJYKCGUS8816-43-77 15:57:00 Test Item Value Reference Range Interpretation Comments Basophils # (test code 77 See_Comment [Aut omated message] The = Basophils #) system which generated this result tra nsmitted reference range : <=200. The reference r guillaume was not used to int erpret this result as normal/abnormal . [facility] MoundVgkcxciBKFVTHNBEG9805-60-91 15:57:00 Test Item Value Reference Range Interpretation Comments Segs (test code = Segs) 58 [facility]oundNmfykmdWAOWEVTNID2677-99-00 15:57:00 Test Item Value Reference Range Interpretation Comments Lymphocytes (test code = Lymphocytes) 31.3 [facility]oundUlgyilmXRSQRLOVWF0760-86-97 15:57:00 Test Item Value Reference Range Interpretation Comments Monocytes (test code = Monocytes) 7.3 [place] 993312-06-08 15:57:00 Test Item Value Reference Range Interpretation Comments Eosinophils (test code = Eosinophils) 2.3 [place] 993312-06-08 15:57:00 Test Item Value Reference Range Interpretation Comments Basophils (test code = Basophils) 1.1 [facility]2022-06-08 15:57:00 Test Item Value Reference Range Interpretation Comments BUN (test code = BUN) 20 7-25 [facility]2022-06-08 15:57:00 Test Item Value Reference Range Interpretation Comments Creatinine Lvl (test code = Creatinine 1.21 0.60-0.88 Lvl) [facility]Ap[facility] RDYNU4656-05-30 15:57:00 Test Item Value Reference Range Interpretation Comments eGFR NON-AFR. PARAGUAYAN (test code = 42 eGFR NON-AFR. PARAGUAYAN) [facility]2022-06-08 15:57:00 Test Item Value Reference Range Interpretation Comments eGFR (test code = eGFR 49 ) [facility]Ap[facility] Learning OYSYX7001-77-75 15:57:00 Test Item Value Reference Range Interpretation Comments B/C Ratio (test code = B/C Ratio) 17 6-22 [facility] HospitalFuylgsxVUIRPNNJERPL8657-53-78 15:57:00 Test Item Value Reference Range Interpretation Comments Sodium Lvl (test code = Sodium Lvl) 138 135-146 [place] 943432-06-08 15:57:00 Test Item Value Reference Range Interpretation Comments Potassium Lvl (test code = Potassium 4.5 3.5-5.3 Lvl) [facility] HospitalQokowviLEFRQNUCGDYM2460-87-37 15:57:00 Test Item Value Reference Range Interpretation Comments Chloride Lvl (test code = Chloride Lvl) 106 98-110 [place] 943432-06-08 15:57:00 Test Item Value Reference Range Interpretation Comments CO2 (test code = CO2) 21 20-32 [place] [address]-06-08 15:57:00 Test Item Value Reference Range Interpretation Comments WBC X 10x3 (test code = WBC X 10x3) 7.0 3.8-10.8 [place] 993312-06-08 15:57:00 Test Item Value Reference Range Interpretation Comments RBC X 10x6 (test code = RBC X 10x6) 4.65 3.80-5.10 [facility]oundRgsvvoyCASNCFHYOH6950-05-20 15:57:00 Test Item Value Reference Range Interpretation Comments Hgb (test code = Hgb) 14.7 11.7-15.5 [place] 993312-06-08 15:57:00 Test Item Value Reference Range Interpretation Comments Hct (test code = Hct) 45.1 35.0-45.0 [place] 993312-06-08 15:57:00 Test Item Value Reference Range Interpretation Comments MCV (test code = MCV) 97.0 80.0-100.0 [place] 993312-06-08 15:57:00 Test Item Value Reference Range Interpretation Comments MCH (test code = MCH) 31.6 pg 27.0-33.0 [facility]oundKuklzcaEPLOZFQFFM8869-84-75 15:57:00 Test Item Value Reference Range Interpretation Comments MCHC (test code = MCHC) 32.6 32.0-36.0 [place] 993312-06-08 15:57:00 Test Item Value Reference Range Interpretation Comments RDW (test code = RDW) 12.9 11.0-15.0 [place] [address]-06-08 15:57:00 Test Item Value Reference Range Interpretation Comments Platelet (test code = Platelet) 241 140-400 [place] 993312-06-08 15:57:00 Test Item Value Reference Range Interpretation Comments MPV (test code = MPV) 10.9 7.5-12.5 [place] [address]-06-08 15:57:00 Test Item Value Reference Range Interpretation Comments Neutrophils # (test code = Neutrophils 4060 1996-1571 #) [facility]oundWgpxjdkRQYFVFATRC2864-39-99 15:57:00 Test Item Value Reference Range Interpretation Comments Lymphocytes # (test code = Lymphocytes 2191 850-3900 #) [facility]oundWuavpbpKEJXSOTLXE3935-58-15 15:57:00 Test Item Value Reference Range Interpretation Comments Monocytes # (test code = Monocytes #) 511 200-950 [facility] MoundBpdpknjWLMUSUBTZZ4971-50-32 15:57:00 Test Item Value Reference Range Interpretation Comments Eosinophils # (test code = Eosinophils 161 15-500 #) [facility] MoundJlhiicxHNXTJRMCRO4666-31-63 15:57:00 Test Item Value Reference Range Interpretation Comments Basophils # (test code 77 See_Comment [Aut omated message] The = Basophils #) system which generated this result tra nsmitted reference range : <=200. The reference r guillaume was not used to int erpret this result as normal/abnormal . [facility]oundHvzvkaoEGZOKLRPUN4240-41-82 15:57:00 Test Item Value Reference Range Interpretation Comments Segs (test code = Segs) 58 [facility] MoundLiixyraNPSNKZFVLD3371-40-74 15:57:00 Test Item Value Reference Range Interpretation Comments Lymphocytes (test code = Lymphocytes) 31.3 [facility]oundWsktkruWTMKTDLFHB9354-13-77 15:57:00 Test Item Value Reference Range Interpretation Comments Monocytes (test code = Monocytes) 7.3 [facility]oundCkyxuniIKKNYCNLOT7117-18-10 15:57:00 Test Item Value Reference Range Interpretation Comments Eosinophils (test code = Eosinophils) 2.3 [facility]oundSwnifvrWNZVTTMSVS3011-84-42 15:57:00 Test Item Value Reference Range Interpretation Comments Basophils (test code = Basophils) 1.1 [facility] HospitalHigh [facility] ([facility] Only)2020-12-08 17:20:00 Test Item Value Reference Range Interpretation Comments Troponin I HS (test 6 pg/ml See_Comment [Automa vanesa code = 19678-4) message] The system which generated this result transmitted reference range : <=17. The reference range was not used to interpret this result as normal/abnormal . GERALD (test code = Slide Developer ID - GERALD) DBThe DRAMA PROFESSOR STAT High Sensitivity Troponin-I results should be used in conjunction with other diagnostic information such as ECG, clinical observations and information, and patient symptoms to aid in the diagnosis of NV. Lab Interpretation Normal (test code = 78135-9) [facility] TROPONIN [id number] 17:20:00 Test Item Value Reference Range Interpretation Comments HIGH SENSITIVITY 6 pg/ml See_Comment [Automated message] TROPONIN I (test code = The system which [id number]) generated this result transmitted ref erence range: <=17. Th e reference range was not used to interpr et this result as normal/abnormal . Slide Developer ID - DBThe DRAMA PROFESSOR STAT High Sensitivity Troponin-I results should be used in conjunctionwith other diagnostic information such as ECG, clinical observations and information, and patient symptoms to aid in the diagnosis of NV.RAD, CHEST, 1 VIEW, NON [id number] 10:23:00Reason for exam:->pulm edemaShould this be performed at the bedside?->Yes [facility] : 1940 Sex: FFINAL REPORT HISTORY: Pulmonary edema COMPARISON: 12/06/2020 FINDINGS: Mild interstitial pulmonary edema. No pleural effusions or pneumothorax. The heart shadow is borderline enlarged. The thoracic aorta is mildly tortuous. There are postoperative changes in the cervical spine. A right shoulder arthroplasty is partially imaged. Signed: Kenia Ren MDReport Verified Date/Time: 12/08/2020 10:23:36 Reading Location: [address] Reading Room Basic Metabolic Zvgdf7787-43-20 05:46:00 Test Item Value Reference Range Interpretation Comments Sodium (test code = 140 meq/L 053-044 5411-2) Potassium (test code = 3.4 meq/L 3.5-5.1 L 2823-3) Chloride (test code = 108 meq/L 98-107 H 2075-0) CO2 (test code = 25 meq/L -8-9) BUN (test code = 11 mg/dL - 3094-0) Creatinine (test code 1.12 mg/dL 0.57-1.25 = 2160-0) Glucose (test code = 113 mg/dL 70-105 H 2345-7) Calcium (test code = 8.9 mg/dL 8.4-10.2 45970-6) EGFR (test code = 47 mL/min/1.73 [place] [address]-1) NOT ACCURATE CREATININE CLEARANCE IN PREDICTING GLOMERULAR FILTRATION RATE . ESTIMATED GFR I S NOT APPLICABLE FOR DIALYSIS PATIENTS. GERALD (test code = GERALD) Slide Developer ID - EMIL M Lab Interpretation Abnormal (test code = 31936-7) [facility] HospitalMagnesium2021-08-21 05:46:00 Test Item Value Reference Range Interpretation Comments Magnesium (test code = 1.7 mg/dL 1.6-2.6 48799-0) GERALD (test code = GERALD) Slide Developer ID - EMIL M Lab Interpretation (test Normal code = 63640-2) [facility] HospitalBASIC METABOLIC [id number] 05:46:00 Test Item Value Reference Range Interpretation [...] S NOT APPLICABLE FOR DIALYSIS PATIEN TS. Slide Developer ID - EMIL FDXRZJAHLO2657-10-15 05:46:00 Test Item Value Reference Range Interpretation Comments MAGNESIUM (BEAKER) (test code = 1.7 mg/dL 1.6-2.6 627) Slide Developer ID - EMIL MCBC with platelet count + automated [id number] 05:04:00 Test Item Value Reference Range Interpretation Comments WBC (test code = 6690-2) 5.7 See_Comment [A utomated message] The system [employer] generated this result transmitted ref erence range: 3.5 - 10 .5 K/L. The refe rence range was not u sed to interpret this result as normal/abnor mal. RBC (test code = 789-8) 3.85 See_Comment L [Au tomated message] The system [employer] generated this result transmitted ref erence range: 3.93 - 5 .22 M/L. The refe rence range was not u sed to interpret this result as normal/abnor mal. MCHC (test code = 786-4) 30.9 See_Comment L [A utomated message] The system [employer] generated this result transmitted ref erence range: [...] See_Comment [Aut omated message] 777-3) The system [employer] generated this result transmitted ref erence range: 150 - 45 0 K/CU MM. The referen ce range was not u sed to interpret this result as normal/abnor mal. MPV (test code = 9.5 fL 9.4-12.3 11078-2) nRBC (test code = 413) 0 See_Comment [Aut omated message] The system [employer] generated this result transmitted ref erence range: [...] See_Comment [Aut omated message] 670) The system [employer] generated this result transmitted ref erence range: 1.56 - 6 .13 K/L. The refe rence range was not u sed to interpret this result as normal/abnor mal. # Lymphs (test code = 1.83 See_Comment [Auto mated message] 414) The system [employer] generated this result transmitted ref erence range: 1.18 - 3 .74 K/L. The refe rence range was not u sed to interpret this result as normal/abnor mal. # Monos (test code = 0.60 See_Comment H [Autom ated message] 415) The system [employer] generated this result transmitted ref erence range: 0.24 - 0 .36 K/L. The refe rence range was not u sed to interpret this result as normal/abnor mal. # Eos (test code = 416) 0.26 See_Comment [Au tomated message] The system [employer] generated this result transmitted ref erence range: 0.04 - 0 .36 K/L. The refe rence range was not u sed to interpret this result as normal/abnor mal. # Baso (test code = 417) 0.05 See_Comment [A utomated message] The system [employer] generated this result transmitted ref erence range: 0.01 - 0 .08 K/L. The refe rence range was not u sed to interpret this result as normal/abnor mal. Immature 1 % 0-1 Granulocytes-Relative (test code = 2801) Lab Interpretation (test Abnormal code = 94295-6) [facility] W/PLT COUNT & AUTO [id number] 05:04:00 Test Item Value Reference Range Interpretation [...] Range Interpretation Comments BNP (test code = 72004-2) 97 pg/mL 0-100 GERALD (test code = GERALD) Slide Developer ID - JENNY L Lab Interpretation (test Normal code = 53080-0) [facility] HospitalB-TYPE NATRIURETIC FACTOR (BNP)2020-12-07 04:52:00 Test Item Value Reference Range Interpretation Comments B-TYPE NATRIURETIC PEPTIDE (BEAKER) 97 pg/mL 0-100 (test code = 700) Slide Developer ID - JENNY LRAD, CHEST, 1 VIEW, NON [id number] 14:01:00Reason for exam:->dyspneaShould this be performed at the bedside?->Yes [facility] : 1940 Sex: FFINAL REPORT [...] 14:01:32 Reading Location: [facility] Radiology Reading Room BASIC METABOLIC [id number] 12:22:00 Test Item Value Reference Range Interpretation [...] S NOT APPLICABLE FOR DIALYSIS PATIEN TS. Slide Developer ID - [id number] 12:22:00 Test Item Value Reference Range Interpretation Comments MAGNESIUM (BEAKER) (test code = 1.7 mg/dL 1.6-2.6 627) Slide Developer ID - EMERSONB-TYPE NATRIURETIC FACTOR (BNP)2020-12-06 12:13:00 Test Item Value Reference Range Interpretation Comments B-TYPE NATRIURETIC PEPTIDE (BEAKER) 88 pg/mL 0-100 (test code = 700) Slide Developer ID - EMERSONTransesophageal [id number] 21:25:57Ejection FractionSLEH ECHO HEARTLAB MKCKESSON [facility] CenterHepatic function [id number] 06:35:00 Test Item Value Reference Range Interpretation Comments Protein, Total (test 5.4 See_Comment L [Autom ated code = 2885-2) message] The system which generated this result transmit vanesa reference range : 6.0 - 8.3 gm/dL . The reference range was not u sed to interpret th is result as normal/abnormal . Albumin (test code = 2.7 g/dL 3.5-5.0 L 69991-4) Total Bilirubin (test 0.1 mg/dL 0.2-1.2 L code = 1975-2) Bilirubin, Direct 0.1 mg/dL 0.1-0.5 (test code = 1968-7) Alkaline Phosphatase 80 U/L 40-150 (test code = 6768-6) AST (test code = 15 U/L 5-34 1920-8) ALT (test code = 8 U/L 6-55 1742-6) GERALD (test code = GERALD) Slide Developer ID - PIAYA L Lab Interpretation Abnormal (test code = 98911-2) [facility] HospitalBASI METABOLIC [id number] 06:35:00 Test Item Value Reference Range Interpretation [...] S NOT APPLICABLE FOR DIALYSIS PATIEN TS. Slide Developer ID - PIAYA LHEPATIC FUNCTION [id number] 06:35:00 Test Item Value Reference Range Interpretation [...] (test code = 8 U/L 6-55 347) Slide Developer ID - PISUNDAR LCBC W/PLT COUNT & AUTO [id number] 05:44:00 Test Item Value Reference Range Interpretation [...] Comments SARS-COV2/RT-PCR (test Negative Negative code = 40748-8) GERALD (test code = GERALD) Negative result [...] the Act. Testing was performed using the [employer]IQ SARS-CoV-2 assay. Fact Sheet for Healthcare Providers:https://www.[employer] [place]/bebo/RT SARS-CoV-2 HCP Fact Sheet 51-130716.pdf Fact Sheet for Healthcare Patients:https://www.[employer]/bebo/RT SARS-CoV-2 Patient Fact Sheet EN 51-324057K0.pdf Lab Interpretation Normal (test code = 40017-8) [facility])2020-12-04 23:22:00 Test Item Value Reference Range Interpretation Comments SARS-COV2/RT-PCR (test code = Negative Negative 6810780) Negative result for this test determines that [...] 564(g) of the Act.Testing was performed using [employer] SARS-CoV-2 assay.Fact Sheet for Healthcare Providers:https://www.[employer]/bebo/RT SARS-CoV-2 HCP Fact Sheet 51- 820440.pdfFact Sheet for Healthcare Patients:[email or web address] SARS-CoV-2 Patient Fact Sheet [id number].pdfHIGH SENSITIVITY TROPONIN I 2020-12-04 19:21:00 Test Item Value Reference Range Interpretation Comments HIGH SENSITIVITY 8 pg/ml See_Comment [Automated message] TROPONIN I (test code = The system which [id number]) generated this result transmitted ref erence range: <=17. Th e reference range was not used to interpr et this result as normal/abnormal . Slide Developer ID - geri Johnathan DRAMA PROFESSOR STAT High Sensitivity Troponin-I results should be used in conjunction with other diagnostic information such as ECG, clinical observations and information, and patient symptoms to aid in the diagnosis of NV.2D Echo W/Doppler(CW/PW/Color)2020-12-04 17:56:11Ejection FractionSLEH ECHO HEARTLAB ISAAC [facility] WITH [facility]AST- PE TEST [id number] 06:05:00Unlisted Reason for Exam - Click Yes and Enter Reason Below->No [facility] : 1940 Sex: FFINAL REPORT [...] PET/CT, or tissue sampling. Signed: Cosme Alvarez MDRepsaint luke[facility] Verified Date/Time: 12/04/2020 06:05:30 [facility] [id number] 06:00:00 Test Item Value Reference Range Interpretation [...] (test code = 7 U/L 6-55 347) Slide Developer ID - EMIL MOperator ID - PIAYA LBASIC METABOLIC [id number] 05:13:00 Test Item Value Reference Range Interpretation [...] S NOT APPLICABLE FOR DIALYSIS PATIEN TS. Slide Developer ID - EMIL MVitamin B12 and [id number] 04:44:00 Test Item Value Reference Range Interpretation Comments Vitamin B12 (test 272 pg/mL 213-816 code = 2132-9) Folate (test code = 7.70 ng/mL See_Comment [Automa vanesa 2284-8) message] The system which generated this result transmit vanesa reference range : >=7.00. The reference range was not used to interpret this result as normal/abnormal . GERALD (test code = GERALD) Slide Developer ID - EMIL M Lab Interpretation Normal (test code = 67546-7) [facility] AND [id number] 04:44:00 Test Item Value Reference Range Interpretation Comments VITAMIN B12 (BEAKER) 272 pg/mL 213-816 (test code = 774) FOLATE (BEAKER) 7.70 ng/mL See_Comment [Automated message] (test code = 362) The system which generated this result transmitted ref erence range: >=7.00. The reference range was not used to interpr et this result as normal/abnormal . Slide Developer ID - EMIL MRAD, CHEST, 1 VIEW, NON [id number] 04:41:00Reason for exam:->afibShould this be performed at the bedside?->Yes [facility] : 1940 Sex: FFINAL REPORT [...] Verified Date/Time: 12/04/2020 04:41:03 HIGH SENSITIVITY TROPONIN [id number] 04:36:00 Test Item Value Reference Range Interpretation Comments HIGH SENSITIVITY 8 pg/ml See_Comment [Automated message] TROPONIN I (test code = The system which [id number]) generated this result transmitted ref erence range: <=17. Th e reference range was not used to interpr et this result as normal/abnormal . Slide Developer ID - EMIL [facility] DRAMA PROFESSOR STAT High Sensitivity Troponin-I results should be used in conjunction with other diagnostic information such as ECG, clinical observations and information, and patient symptoms to aid in the diagnosis of NV.B-TYPE NATRIURETIC FACTOR (BNP)2020-12-04 04:27:00 Test Item Value Reference Range Interpretation Comments B-TYPE NATRIURETIC PEPTIDE (BEAKER) 144 pg/mL 0-100 H (test code = 700) Slide Developer ID - EMIL MCBC W/PLT COUNT & AUTO [id number] 04:01:00 Test Item Value Reference Range Interpretation [...] (test code = 2801) TSH/Free T4 If [id number] 00:19:00 Test Item Value Reference Range Interpretation Comments TSH (test code = 1.723 See_Comment [Automated 12425-7) message] The system which generated this result transmit vanesa reference range : 0.350 - 4.940 uIU/mL. The reference range was not used to interpret this result as normal/abnormal . GERALD (test code = GERALD) Slide Developer ID - PIAYA L Lab Interpretation Normal (test code = 76366-7) [facility] HospitalTSH/FREE T4 IF [id number] 00:19:00 Test Item Value Reference Range Interpretation Comments THYROID STIMULATING HORMONE 1.723 uIU/mL 0.350-4.940 (BEAKER) (test code = 772) Slide Developer ID - PIAYA LHIGH SENSITIVITY TROPONIN [id number] 00:02:00 Test Item Value Reference Range Interpretation Comments HIGH SENSITIVITY 7 pg/ml See_Comment [Automated message] TROPONIN I (test code = The system which [id number]) generated this result transmitted ref erence range: <=17. Th e reference range was not used to interpr et this result as normal/abnormal . Slide Developer ID - DBThe DRAMA PROFESSOR STAT High Sensitivity Troponin-I results should be used in conjunctionwith other diagnostic information such as ECG, clinical observations and information, and patient symptoms to aid in the diagnosis of NV.[id number] 23:58:00 Test Item Value Reference Range Interpretation Comments Phosphorus (test code = 3.3 mg/dL 2.3-4.7 2777-1) GERALD (test code = GERALD) Slide Developer ID - DB Lab Interpretation (test Normal code = 23036-1) [facility] METABOLIC [id number] 23:58:00 Test Item Value Reference Range Interpretation [...] S NOT APPLICABLE FOR DIALYSIS PATIEN TS. Slide Developer ID - [id number] 23:58:00 Test Item Value Reference Range Interpretation Comments MAGNESIUM (BEAKER) (test code = 1.7 mg/dL 1.6-2.6 627) Slide Developer ID - [id number] 23:58:00 Test Item Value Reference Range Interpretation Comments PHOSPHORUS (BEAKER) (test code = 3.3 mg/dL 2.3-4.7 604) Slide Developer ID - DBHEPATIC FUNCTION [id number] 23:58:00 Test Item Value Reference Range Interpretation [...] (test code = 9 U/L 6-55 347) Slide Developer ID - [id number] 23:42:00 Test Item Value Reference Range Interpretation Comments D-Dimer, Quant (test 1.26 See_Comment H [Autom ated code = 46400-3) message] The system which generated this result [...] range. Lab Interpretation Abnormal (test code = 94992-5) [facility] HospitalD-[id number] 23:42:00 Test Item Value Reference Range Interpretation [...] of thrombosis is within 95-100% range. Prothrombin time/[id number] 23:39:00 Test Item Value Reference Interpretation Comments Range Protime (test code = 15.4 See_Comment H [Autom ated 5307-2) message] The system which generated this result transmitted reference range : 11.9 - 14.2 seconds. The reference range was not used to interpret this result as normal/abnormal . INR (test code = 1.24 See_Comment [Automated 0256-6) message] The system which generated this result [...] valves. Lab Interpretation Abnormal (test code = 49383-3) [facility] HospitalPROTHROMBIN TIME/[id number] 23:39:00 Test Item Value Reference Range Interpretation Comments PROTIME (BEAKER) 15.4 seconds 11.9-14.2 H (test code = 759) INR (BEAKER) (test 1.24 See_Comment [Automat ed message] code = 370) The system [employer] generated this result transmitted ref erence range: <=5.90. The reference range was not used to int erpret this result as normal/abnormal . RECOMMENDED COUMADIN/WARFARIN INR THERAPY RANGESSTANDARD DOSE: 2.0 - 3.0 Includes: PROPHYLAXIS for venous thrombosis, systemic embolization; TREATMENT for venous thrombosis and/or pulmonary embolus.HIGH RISK: Target INR is 2.5-3.5 for patients with mechanical heart valves.CBC W/PLT COUNT & AUTO [id number] 23:32:00 Test Item Value Reference Range Interpretation [...] 0-1 PERCENT (BEAKER) (test code = 2801) Notes Date/Time Note Provider Source 2022-07-09 11:10:00-00:00 [id number] [facility] [address] [place] [address] PATIENT NAME: AGNES CALABRESE ADMIT DATE: 3 ACCOUNT NO: [id number] ROOM NO: AGE: 82 REPORT TYPE: OPERATIVE REPORT SEX: F ADMITTING PHYSICIAN: ATTENDING PHYSICIAN: Amadou Linda MD OPERATION DATE: 07/09/2022 PROCEDURES PERFORMED: 1. EGD. 2. Biopsy. 3. Guidewire dilation using 42 and 45-Sami res pectively. 4. Administration of anesthesia by Department of Anesthesia. REQUESTING PHYSICIAN: Dr. Kenia Torres. INDICATIONS/PREOPERATIVE DIAGNOSES: Dysphagia, G ERD. SURGEON: Amadou Linda MD SLITTER AND CUTTER OPERATOR: ANESTHESIA: PROCEDURE IN DETAIL: The procedure with possible complication, alternatives including but not limited to possibility of blee ding, perforation, tear, infection, sepsis, need for surgery, need for bl ood transfusion, anesthesia-related problem e xplained to the patient. Informed consent obtained. The patient was placed in left lateral position . After appropriate level of anesthesia, scope was passed. Esophageal mucosa in the proximal, mid, and distal aspect appeared to be within normal range . Other than slight inflammation in the EG junction, no obstruction or no resistance was noted. In the stomach, although mod umozk-iz-glwowp gastritis noted in a diffuse manner, more predominant in the antrum. Biopsies done in different areas. Retroflexion was the same. Duodenal bulb, duodenal angle, duodenal part 2 a ppeared to be within normal range. After doing the biopsy. at this time, channing dewire was placed. Serial dilation performed starting from the least to th e highest one as delineated above. Having done the above procedure in safe diligent and satisfactory manner, endoscope, rest of the endoscopic accessories we re removed. The patient's oropharyngeal area cleaned out in respec tful manner. The patient has been sent in excellent condition to postoperative recovery , from there to home. IMPRESSION/POSTOPERATIVE DIAGNOSES: PATIENT NAME: AGNES CALABRESE [id number] 1. Mild esophagitis. 2. Dysphagia, although no stenosis noted. Empiri c dilation done for symptom relief. 3. Cnsxapic-ji-qrajot gastritis. PLAN: Office followup. Follow up with biopsy; fo r the time being, continue on PPI. COMPLICATIONS: None. The patient tolerated the procedure well. DISPOSITION: As above. Dictated By: Amadou Linda MD Date Dictated: 07/09/2022 11:10:24 Date Transcribed: 07/09/2022 18:03:53 NMM/SUB Receipt ID: [id number] CC: Kenia Torres Authenticated by Amadou Linda MD On 08/19/2022 07:45:45 AM Electronically Signed by Amadou Linda MD on 06/12 at 0745 PATIENT NAME: AGNES CALABRESE [birth year] 2022-07-02 13:51:00-00:00 [id number] [place] [address] PATIENT NAME: AGNES CALABRESE ADMIT DATE: ACCOUNT NO: [id number] ROOM NO: AGE: 82 REPORT TYPE: eELECTROCARDIOGRAM SEX: F ADMITTING PHYSICIAN: ATTENDING PHYSICIAN: Amadou Linda MD Order: [id number] Test Reason : PROCEDURE Test Date/Time Stamp: ThuJul 02 2022 13:51:23 Blood Pressure : / mmHG Vent. Rate : 052 BPM Atrial Rate : 052 BPM P-R Int : 214 ms QRS Dur : 096 ms QT Int : 436 ms P-R-T Axes : 077 063 061 degree s QTc Int : 405 ms Sinus bradycardia with 1st degree AV block Nonspecific T wave abnormality Abnormal ECG No previous ECGs available Confirmed by MD Yi Amir ([id number]) on 10:36:18 AM Referred By: Amadou Linda Confirmed by:Lilly rose MD at 1036 PATIENT NAME: AGNES CALABRESE [birth year]
--- NOTE | 2022-11-20 13:35 | RAD REPORT ---
EXAM DESCRIPTION: CT - CTHCSPWOC - 11/20/2022 1:22 pm CLINICAL HISTORY: Trauma, head and neck injury. CONFUSED COMPARISON: Head C Spine Mpr Wo Con dated 12/03/2021; Head C Spine Mpr Wo Con dated 11/09/2021; Head C Spine Mpr Wo Con dated 10/19/2020; Head C Spine Mpr Wo Con dated 05/15/2020 TECHNIQUE: Axial 5 mm thick images of the head were obtained. Axial 2 mm thick images of the cervical spine were obtained with sagittal and coronal reconstruction images generated and reviewed. All CT scans are performed using dose optimization technique as appropriate and may include automated exposure control or mA/KV adjustment according to patient size. FINDINGS: CT HEAD WITHOUT CONTRAST: No acute hemorrhage, hydrocephalus or extra-axial collection is identified.Mild generalized brain atr ophy is present with mild periventricular and deep white matter chronic microvascular ischemic change s.No areas of brain edema or midline shift. The paranasal sinuses and mastoids are clear.The calvarium is intact. CT CERVICAL SPINE WITHOUT CONTRAST: No fracture or subluxation.Changes of ACDF spanning C4-7.No prevertebral soft tissues swelling is gurmeet ntified. IMPRESSION: No acute intracranial or cervical spine findings.
[2022-11-20] MEDS ORDERED: Ringers Lactate 1,000 ML IV ONE (14:12)
[2022-11-20 14:32] LABS: Absolute Lymphocytes (CBC) 1.8 K/uL (0.7-4.9); Lymphocytes % 27.3 % (15.3-44.8); MCV 99.1 fL (80-100); Platelets 238 thou/uL (152-406); RBC Red Blood Cell Count 4.34 M/uL (3.86-4.86)
[2022-11-20 14:49] LABS: Protime INR 1.44
[2022-11-20 14:50] LABS: Albumin 2.6 g/dL (3.4-5.0); Bilirubin Total 0.3 mg/dL (0.2-1.0); Protein, Total 6.1 g/dL (6.4-8.2)
[2022-11-20 17:29] LABS: Specific Gravity 1.015 (1.005-1.030); Urine Bacteria <20 /HPF (<20); Urine Bilirubin NEGATIVE (Negative); Urine Blood Negative (Negative); Urine Clarity Extremely Turbid (Clear); Urine Color Yellow (Yellow); Urine Glucose NEGATIVE (Negative); Urine Mucus Slight /HPF (None Seen); Urine Protein NEGATIVE (Negative); Urine RBC <5 /HPF (None Seen); Urine Urobilinogen Normal (Normal)
--- NOTE | 2022-11-20 17:47 | ER ---
Nurse's Notes [facility] Name: Agnes Calabrese Age: 82 yrs Sex: Female : 1940 Arrival Date: 11/20/2022 Time: 12:38 Bed 15 Private MD: Jerry Torres T Diagnosis: Altered mental status, unspecified;Muscle weakness (generalized);Contusion of unspecified part of head;Moderate protein-calorie malnutrition Presentation: 11/20 13:01 Chief complaint: Patient states: generalized weakness and SOB upon exertion that began ss approximately 1 week ago. Denies fever. Pt was recently diagnosed with a UTI and prescribed Levaquin and was told by Dr. Torres that he was going to also call in Macrodantin. Pt also reports she fell from standing and hit her head on Thursday. Saw Dr. Pat, neurologist, who ordered an outpatient CT for tomorrow. Coronavirus screen: Client denies travel out of the [place] in the last 14 days. Ebola Screen: Patient denies exposure to infectious person. Patient denies travel to an Ebola-affected area in the 21 days before illness onset. No acute neurological deficit is noted. Pre-hospital glucose is not applicable to this patient. Initial Sepsis Screen: Does the patient meet any 2 criteria? No. Patient's initial sepsis screen is negative. Does the patient have a suspected source of infection? No. Patient's initial sepsis screen is negative. Risk Assessment: Do you want to hurt yourself or someone else? Patient reports no desire to harm self or others. Onset of symptoms is unknown. 13:01 Method Of Arrival: Ambulatory ss 13:01 Acuity: WARREN 3 ss Stroke Activation: Symptom onset > 6 hours Physician: Stroke Attending; Name: ; Notified At: ; Arrived At: Physician: Chief Stroke Resident; Name: ; Notified At: ; Arrived At: Physician: Stroke Resident; Name: ; Notified At: ; Arrived At: Physician: ED Attending; Name: ; Notified At: ; Arrived At: Physician: ED Resident; Name: ; Notified At: ; Arrived At: Historical: - Allergies: 13:05 clindamycin HCl (bulk); ss 13:05 Darvocet-N 100; ss 13:05 PENICILLINS; ss 13:05 Strawberries; ss 13:05 Sulfa (Sulfonamide Antibiotics); ss - PMHx: 13:05 AFIB; Alzheimer's disease; Cancer; lymphedema; skipped heart beats; insomnia; ss Hypothyroidism; angina pectoris; Hypertension; left breast cancer; COPD; Hyperlipidemia; Fibromyalgia; Depression; GERD; - PSHx: 13:05 bilateral knee replacement; Appendectomy; mastectomy; Spinal Fusion; Total abdominal ss hysterectomy; - Immunization history:: Adult Immunizations unknown. - Social history:: Smoking status: unknown. Screenin:00 [facility] ED Fall Risk Assessment (Adult) History of falling in the last 3 months, nj1 including since admission Score/Fall Risk Level 3 or more points = High Risk Oriented to surroundings, Maintained a safe environment, Educated pt \T\ family on fall prevention, incl call for assistance when getting out of bed, Assessed \T\ reinforced patient's understanding of fall precautions, Provided non-skid footwear, Hourly rounding (assess needs \T\ fall precautionary measures) done, Used ambulatory aids as needed (educated on \T\ assisted with), Remained with patient while ambulating, Utilized family, sitter, or virtual honey blender as indicated. Abuse screen: Denies threats or abuse. Denies injuries from another. Nutritional screening: No deficits noted. Tuberculosis screening: No symptoms or risk factors identified. Assessment: 14:00 General: Appears in no apparent distress. comfortable, Behavior is calm, cooperative, nj1 appropriate for age. Pain: Denies pain. Neuro: Level of Consciousness is awake, alert, obeys commands, Oriented to person, place, situation, Reports weakness. Cardiovascular: Patient's skin is warm and dry. Respiratory: Airway is patent Respiratory effort is even, unlabored. 15:24 Reassessment: Patient appears in no apparent distress at this time. Patient and/or nj1 family updated on plan of care and expected duration. Pain level reassessed. Patient is alert, oriented x 3, equal unlabored respirations, skin warm/dry/pink. 16:30 Reassessment: Patient appears in no apparent distress at this time. Patient and/or nj1 family updated on plan of care and expected duration. Pain level reassessed. Patient is alert, oriented x 3, equal unlabored respirations, skin warm/dry/pink. 17:30 Reassessment: Patient appears in no apparent distress at this time. Patient and/or nj1 family updated on plan of care and expected duration. Pain level reassessed. Patient is alert, oriented x 3, equal unlabored respirations, skin warm/dry/pink. 18:30 Reassessment: Patient appears in no apparent distress at this time. Patient and/or nj1 family updated on plan of care and expected duration. Pain level reassessed. Patient is alert, oriented x 3, equal unlabored respirations, skin warm/dry/pink. 19:30 Reassessment: Patient appears in no apparent distress at this time. Patient and/or nj1 family updated on plan of care and expected duration. Pain level reassessed. Patient is alert, oriented x 3, equal unlabored respirations, skin warm/dry/pink. 20:34 Reassessment: Patient appears in no apparent distress at this time. Patient and/or nj1 family updated on plan of care and expected duration. Pain level reassessed. Patient is alert, oriented x 3, equal unlabored respirations, skin warm/dry/pink. 21:35 Reassessment: Patient appears in no apparent distress at this time. Patient and/or jw7 family updated on plan of care and expected duration. Pain level reassessed. Patient is alert, oriented x 3, equal unlabored respirations, skin warm/dry/pink. 21:47 General: Report given to DANIEL Toledo. jw7 Vital Signs: 13:01 BP 156 / 79; Pulse 68; Resp 20; Temp 98.1(O); Pulse Ox 97% on R/A; Weight 103.42 kg; ss Height 5 ft. 3 in. ; Pain 2/10; 14:15 BP 145 / 78; Pulse 59; Resp 18; Pulse Ox 96% ; nj1 15:23 BP 131 / 65; Pulse 59; Resp 18; Pulse Ox 95% on R/A; nj1 16:30 BP 132 / 78; Pulse 61; Resp 15; Pulse Ox 98% on R/A; nj1 17:30 BP 118 / 69; Pulse 59; Resp 18; Pulse Ox 95% on R/A; nj1 19:02 BP 115 / 68; Pulse 59; Resp 19; Pulse Ox 97% on R/A; nj1 20:33 BP 142 / 74; Pulse 59; Resp 18; Pulse Ox 95% on R/A; nj1 13:01 Body Mass Index 40.39 (103.42 kg, 160.02 cm) ss 13:01 Pain Scale: Adult ss ED Course: 12:39 Patient arrived in ED. rg4 12:39 Jerry Torres MD is Private Physician. rg4 12:43 Jessica Renae MD is Attending Physician. cp3 12:47 Dana Arias RN is Primary Nurse. nj1 13:05 Triage completed. ss 13:05 Arm band placed on left wrist. ss 13:23 Head C Spine Mpr Wo Con In Process Unspecified. EDMS 14:00 Patient has correct armband on for positive identification. Bed in low position. Call nj1 light in reach. Side rails up X 1. Adult w/ patient. 14:00 Provided Education on: fall precautions, call light. nj1 14:11 Inserted saline lock: 20 gauge in right antecubital area, using aseptic technique. nj1 ,using aseptic technique. Ultrasound guided. Catheter tip well visualized within vasculature during placement. Blood collected. 17:44 Jessica Renae MD is Hospitalizing Provider. cp3 17:48 Hospitalizing Provider role handed off by Jessica Renae MD cp3 17:48 Luis Carlos Andrade MD is Hospitalizing Provider. cp3 20:11 No provider procedures requiring assistance completed. Patient admitted, IV remains in nj1 place. Administered Medications: 14:12 Drug: Lactated Ringers Solution IV 1000 ml Route: IV; Rate: 126 ml/hr; Site: right nj1 antecubital; 21:49 Follow up: Response: No adverse reaction; IV Status: Completed infusion; IV Intake: jw7 1000ml Medication: 20:12 VIS not applicable for this client. nj1 Intake: 21:49 IV: 1000ml; Total: 1000ml. jw7 Outcome: 17:46 Decision to Hospitalize by Provider. cp3 21:47 Admitted to Tele accompanied by nurse, family with patient, via wheelchair, room 402, jw7 with chart, Report called to DANIEL Toledo 21:47 Condition: stable 21:47 Instructed on the need for admit. 21:52 Patient left the ED. jw7 Signatures: Dispatcher [employer] EDND Jessica Renae MD MD cp3 Korina Morgan RN RN Arti Lieberman rg4 Josselyn Schwartz RN RN jw7 Dana Arias RN RN nj1 Corrections: (The following items were deleted from the chart) 21:04 14:00 Neuro: Level of Consciousness is awake, alert, obeys commands, Oriented to nj1 person, place, time, situation, Reports weakness nj1
--- NOTE | 2022-11-20 17:47 | EDPHYS ---
Physician Documentation [facility] Name: Agnes Calabrese Age: 82 yrs Sex: Female : 1940 Arrival Date: 11/20/2022 Time: 12:38 Bed 15 Private MD: Jerry Torres T ED Physician Jessica Renae HPI: 11/20 17:49 This 82 yrs old Female presents to ER via Ambulatory with complaints of Weakness. cp3 15:35 Patient is a 82-year-old female with a history of A-fib, Alzheimer's disease, cp3 lymphedema who presents to the ED secondary to generalized weakness and near syncopal episode. Patient recently evaluated by her primary care doctor and treated her for UTI with recent adjustments in antibiotics. Patient has been weak and falling and per patient's relative at bedside fell 2 days ago and is scheduled to have a CAT scan tomorrow the patient was too weak to wait for CT in the morning. Patient sent to ED for further evaluation. Patient denies any pain but feels generally weak and fatigued.. Historical: - Allergies: 13:05 clindamycin HCl (bulk); ss 13:05 Darvocet-N 100; ss 13:05 PENICILLINS; ss 13:05 Strawberries; ss 13:05 Sulfa (Sulfonamide Antibiotics); ss - PMHx: 13:05 AFIB; Alzheimer's disease; Cancer; lymphedema; skipped heart beats; insomnia; ss Hypothyroidism; angina pectoris; Hypertension; left breast cancer; COPD; Hyperlipidemia; Fibromyalgia; Depression; GERD; - PSHx: 13:05 bilateral knee replacement; Appendectomy; mastectomy; Spinal Fusion; Total abdominal ss hysterectomy; - Immunization history:: Adult Immunizations unknown. - Social history:: Smoking status: unknown. Vital Signs: 13:01 BP 156 / 79; Pulse 68; Resp 20; Temp 98.1(O); Pulse Ox 97% on R/A; Weight 103.42 kg; ss Height 5 ft. 3 in. ; Pain 2/10; 14:15 BP 145 / 78; Pulse 59; Resp 18; Pulse Ox 96% ; nj1 15:23 BP 131 / 65; Pulse 59; Resp 18; Pulse Ox 95% on R/A; nj1 16:30 BP 132 / 78; Pulse 61; Resp 15; Pulse Ox 98% on R/A; nj1 17:30 BP 118 / 69; Pulse 59; Resp 18; Pulse Ox 95% on R/A; nj1 19:02 BP 115 / 68; Pulse 59; Resp 19; Pulse Ox 97% on R/A; nj1 20:33 BP 142 / 74; Pulse 59; Resp 18; Pulse Ox 95% on R/A; nj1 13:01 Body Mass Index 40.39 (103.42 kg, 160.02 cm) ss 13:01 Pain Scale: Adult ss MDM: 12:51 Patient medically screened. cp3 15:32 ED course: EKG interpreted by me at 1528: Normal Rinus rhythm, Rate [address] cp3 changes no evidence of acute MD. 11/20 13:05 Order name: Blood Culture Adult (2) cp3 / 13:05 Order name: CBC with Diff; Complete Time: 15:16 cp3 08/ 13:05 Order name: CMP; Complete Time: 15:16 cp3 / 13:05 Order name: Lactate w/ 2H reflex if indic.; Complete Time: 15:16 cp3 08/ 13:05 Order name: Protime (+inr); Complete Time: 15:16 cp3 / 13:05 Order name: Ptt, Activated; Complete Time: 15:16 cp3 08/ 13:05 Order name: Urinalysis W/Microscopic; Complete Time: 17:38 cp3 08/ 13:05 Order name: Blood Culture Adult (2) cp3 11/20 19:07 Order name: CBC with Automated Diff EDMS 11/20 19:07 Order name: CBC with Automated Diff EDMS 11/20 19:07 Order name: CBC with Automated Diff EDMS 11/20 19:07 Order name: CBC with Automated Diff EDMS 11/20 19:07 Order name: Comprehensive Metabolic Panel EDMS 11/20 19:07 Order name: Comprehensive Metabolic Panel EDMS 11/20 19:07 Order name: Comprehensive Metabolic Panel EDMS 11/20 19:07 Order name: Comprehensive Metabolic Panel EDMS 11/20 13:23 Order name: Head C Spine Mpr Wo Con; Complete Time: 14:40 EDMS 11/20 13:05 Order name: EKG; Complete Time: 13:06 cp3 11/20 19:07 Order name: Physical Therapy Consult EDMS 11/20 19:07 Order name: Social Service Consult [facility] 11/20 19:07 Order name: Heart Healthy [facility] 11/20 19:22 Order name: Social Service Consult [facility] 11/20 13:05 Order name: Cardiac monitoring; Complete Time: 14:38 cp3 11/20 13:05 Order name: EKG - Nurse/Tech; Complete Time: 15:32 cp3 11/20 13:05 Order name: IV Saline Lock - Large Bore; Complete Time: 14:38 cp3 11/20 13:05 Order name: Labs collected and sent; Complete Time: 14:38 cp3 11/20 13:05 Order name: O2 Per Protocol; Complete Time: 14:38 cp3 11/20 13:05 Order name: O2 Sat Monitoring; Complete Time: 14:39 cp3 11/20 13:05 Order name: Vital Signs; Complete Time: 14:39 cp3 Administered Medications: 14:12 Drug: Lactated Ringers Solution IV 1000 ml Route: IV; Rate: 126 ml/hr; Site: right nj1 antecubital; 21:49 Follow up: Response: No adverse reaction; IV Status: Completed infusion; IV Intake: jw7 1000ml Disposition Summary: 11/20/22 17:46 Hospitalization Ordered Hospitalization Status: Inpatient Admission cp3 Location: [facility] ([facility]patient) cp3 Condition: Stable cp3 Problem: new cp3 Symptoms: have worsened cp3 Bed/Room Type: Standard cp3 Provider: Luis Carlos Andrade(11/20/22 17:49) cp3 Room Assignment: [facility](11/20/22 20:26) eb1 Diagnosis - Altered mental status, unspecified cp3 - Muscle weakness (generalized) cp3 - Contusion of unspecified part of head cp3 - Moderate protein-calorie malnutrition cp3 Forms: - Medication Reconciliation Form cp3 - SBAR form cp3 Signatures: Dispatcher [employer] Jessica Rubin MD MD cp3 Korina Morgan RN RN ss Garcia, Cindy, RN RN cg Basinger, Emily, RN RN eb1 Dana Arias RN RN nj1 Josselyn Schwartz RN jw7 Corrections: (The following items were deleted from the chart) 13:23 13:06 Head Brain Wo [id number].RAD.BRZ ordered. EDMS EDMS 17:49 17:46 William Renaepelonmyra cp3 cp3 20:08 17:46 cp3 cg 20:26 20:08 407 cg eb1
--- NOTE | 2022-11-20 19:15 | P.HP ---
Certification for Inpatient Patient admitted to: Inpatient With expected LOS: >2 Midnights Patient will require the following post-hospital care: Senior Living Practitioner: I am a practitioner with admitting privileges, knowledge of patient current condition, hospital course, and medical plan of care. Services: Services provided to patient in accordance with Admission requirements found in Title 42 Section 412.3 of the Code of Federal Regulations Patient History Date of Service: 11/20/22 Primary Care Provider: Melissa Reason for admission: uti protein energy malnutrition History of Present Illness: patient of Dr. Torres. She has a history of copd, afib hypothyroidism. The patient fell 10 days ago and hit her head. Since then she has become more bed bound. Needs assistance to get to and from the [facility]. She had a uti. Was seen by Dr. Torres and was started on levaquin and then added nitrofurantin. She was getting weaker and was told to come to the ER. She has no confusion. However the patient has no home health or PT. She has one son at home. She is a fall risk Allergies clindamycin HCl [From Cleocin] Allergy (Severe, Verified 06/10/21 22:02) Hives/Rash clindamycin palmitate HCl [From Cleocin] Allergy (Severe, Verified 06/10/21 22:02) Hives/Rash clindamycin phosphate [From Cleocin] Allergy (Severe, Verified 06/10/21 22:02) Hives/Rash Penicillins Allergy (Severe, Verified 06/10/21 22:02) Hives/Rash Sulfa (Sulfonamide Antibiotics) [Sulfa(Sulfonamide Antibiotics)] Allergy (Severe, Verified 06/10/21 22:02) Hives/Rash propoxyphene [From Darvocet-N 100] Allergy (Verified 06/10/21 22:02) Unknown strawberries Allergy (Severe, Uncoded 07/11/20 05:19) Hives/Rash Home Medications: Albuterol Sulfate [Proair Respiclick] 2 puff IH Q6HP PRN 06/11/21 Apixaban [Eliquis] 5 mg PO BID 06/11/21 Cyanocobalamin (Vitamin B-12) [Vitamin B12] 1,000 mcg PO DAILY 06/11/21 Cyclosporine [Restasis] 1 drop EACH EYE TID 06/11/21 Donepezil HCl 10 mg PO DAILY 06/11/21 Duloxetine HCl 60 mg PO BID 06/11/21 Estradiol 0.01% Cream 1 appl VAG SEECOM 06/11/21 Flecainide Acetate 50 mg PO BID 06/11/21 Fluticasone/Umeclidin/Vilanter [Trelegy Ellipta 100-62.5-25] 1 puff IH DAILY 06/11/21 Gabapentin 300 mg PO BEDTIME 06/11/21 Levothyroxine [Synthroid*] 75 mcg PO PNLVT2PB 06/11/21 Memantine HCl 10 mg PO BID 06/11/21 Montelukast [Singulair*] 10 mg PO DAILY 06/11/21 Pantoprazole [Protonix Tab*] 40 mg PO DAILY 06/11/21 Potassium Chloride 20 meq PO BID 06/11/21 Quetiapine Fumarate [Seroquel] 25 mg PO BEDTIME 06/11/21 Simvastatin 40 mg PO BEDTIME 06/11/21 Tizanidine HCl 4 mg PO DAILY 06/11/21 Topiramate 100 mg PO BID 06/11/21 buPROPion HCL [Bupropion Xl] 300 mg PO DAILY 06/11/21 Acetaminophen 650 mg PO Q6H PRN 12/31/21 Benzonatate [Tessalon Perle*] 200 mg PO Q8H PRN 12/31/21 Pataday 0.7% Drops 1 drop OPTH DAILY 12/31/21 Propylene Glycol/Peg 400 [Lubricating Eye Drop] 1 drop OPTH BID 12/31/21 Cranberry Fruit Extract [Ellura] 200 mg PO DAILY 02/11/22 Cephalexin [Keflex] 500 mg PO Q6HR 7 Days #28 cap 02/13/22 Metoprolol Succinate [Toprol Xl*] 12.5 mg PO BEDTIME 30 Days #15 tab 02/13/22 - Past Medical/Surgical History Diabetic: No -: Lymphedema -: Afib -: L breast cancer -: PE -: Meniere's Disease -: Former smoker -: Recurrent UTIs -: Fibromyalgia -: GERD -: Insomnia -: Depression -: Neuropathy -: s/p Left Mastectomy -: PATIENCE TKA -: Cervical fusion -: Lumbar fusion -: Appendectomy -: Hysterectomy Psychosocial/ Personal History: Patient lives in an assisted living facility- [facility] - Family History Father -: Diabetes Notes: heart attack. alcoholic - Social History Alcohol use: No CD- Drugs: No Caffeine use: No Review of Systems 10-point ROS is otherwise unremarkable General: Weakness Respiratory: SOB with Excertion Physical Examination - Physical Exam General: Alert, In no apparent distress HEENT: Atraumatic, PERRLA, Mucous membr. moist/pink, EOMI, Sclerae nonicteric Neck: Supple, 2+ carotid pulse no bruit, No LAD, Without JVD or thyroid abnormality Respiratory: Clear to auscultation bilaterally, Normal air movement Cardiovascular: Regular rate/rhythm, Normal S1 S2 Gastrointestinal: Normal bowel sounds, No tenderness Musculoskeletal: No tenderness Integumentary: No rashes Neurological: Normal gait, Normal speech, Normal strength at 5/5 x4 extr, Normal tone, Normal affect Lymphatics: No axilla or inguinal lymphadenopathy - Studies Laboratory Data (last 24 hrs) 11/20/22 11/20/22 11/20/22 14:11 14:11 14:11 WBC 6.60 Hgb 13.7 Hct 43.0 Plt Count 238 PT 15.8 H INR 1.44 APTT 37.8 H Sodium 136 Potassium 4.0 BUN 16 Creatinine 1.04 H Glucose 159 H Total Bilirubin 0.3 AST 18 ALT 17 Alkaline Phosphatase 64 Assessment and Plan - Problems (Diagnosis) (1) UTI (urinary tract infection) Onset Date: 01/12/18 Current Visit: No Status: Acute Plan: will restart the levaquin and the nitrofurantin Qualifiers: Urinary tract infection type: acute cystitis Hematuria presence: without hematuria Qualified Code(s): N30.00 - Acute cystitis without hematuria (2) Severe protein-energy malnutrition Current Visit: Yes Status: Chronic Plan: will order pt and see if we can move the patient to a PT center or snf. She is getting weaker. Can not transfer without assistance. (3) GERD (gastroesophageal reflux disease) Current Visit: No Status: Acute Plan: restart home protonix. Qualifiers: Esophagitis presence: esophagitis presence not specified Qualified Code(s): K21.9 - Gastro-esophageal reflux disease without esophagitis (4) Afib Current Visit: No Status: Chronic Plan: may need to wean down her beta barbara Qualifiers: Atrial fibrillation type: unspecified chronic Qualified Code(s): I48.20 - Chronic atrial fibrillation, unspecified; I48.2 - Chronic atrial fibrillation (5) Dementia Current Visit: No Status: Chronic Plan: restart namenda Qualifiers: Dementia type: unspecified type Qualified Code(s): F03.90 - Unspecified dementia, unspecified severity, without behavioral disturbance, psychotic disturbance, mood disturbance, and anxiety Discharge Plan: LTAC Plan to discharge in: Greater than 2 days - Advance Directives Does patient have a Living Will: No Does patient have a Durable POA for Healthcare: Yes - Code Status/Comfort Care Code Status Assessed: Yes Code Status: Full Code Physician Review: Patient Assessed, Agree with Above Assessment and Plan Critical Care: No Time Spent Managing Pts Care (In Minutes): 50
[2022-11-20] MEDS ORDERED: METOPROLOL TAR 25 MG TAB PO SCH (21:00)
[2022-11-20 22:20] VITALS: BMI 40.7
[2022-11-20] MEDS: APIXABAN 5 MG TABLET PO SCH (22:30)
[2022-11-20] MEDS: TOPIRAMATE 100 MG TAB PO SCH (22:30)
[2022-11-20] MEDS: DULOXETINE 30 MG CAP PO SCH (22:30)
[2022-11-20] MEDS: NITROFURAN MACRO 100 MG CAP PO SCH (22:30)
[2022-11-21] MEDS ORDERED: HYDROCODONE/APAP 5/325 MG TAB PO ONE (05:12)
[2022-11-21] MEDS: LEVOTHYROXINE SOD 0.075 MG TAB PO SCH (06:04)
[2022-11-21] MEDS: PANTOPRAZOLE 40MG TABLET PO SCH (06:04)
[2022-11-21 06:14] LABS: Absolute Lymphocytes (CBC) 2.4 K/uL (0.7-4.9); Hematocrit 37.7 % (36.0-45.0); Lymphocytes % 31.3 % (15.3-44.8); MCV 98.8 fL (80-100); Platelets 181 thou/uL (152-406); RBC Red Blood Cell Count 3.82 M/uL (3.86-4.86)
[2022-11-21 06:32] LABS: Albumin 2.2 g/dL (3.4-5.0); Bilirubin Total 0.4 mg/dL (0.2-1.0); Potassium 4.2 mEq/L (3.5-5.1); Protein, Total 5.2 g/dL (6.4-8.2)
[2022-11-21 06:58] LABS: Blood Morphology Comment NOT SEEN (NOT SEEN); Platelet Estimate ADEQ; White Blood Cell Scan OK (OK)
--- NOTE | 2022-11-21 08:23 | P.PN ---
Subjective Date of Service: 11/21/22 Primary Care Provider: Melissa Chief Complaint: uti protein energy malnutrition Subjective: No new changes was able to get to the commode with a wheelchair Review of Systems 10-point ROS is otherwise unremarkable General: Weakness Physical Examination - Vital Signs Temperature: 97.7 F Blood Pressure: 145/73 Pulse: 59 Respirations: 20 Pulse Ox (%): 96 - Physical Exam General: Alert, In no apparent distress HEENT: Atraumatic, PERRLA, EOMI Neck: Supple, JVD not distended Respiratory: Clear to auscultation bilaterally, Normal air movement Cardiovascular: Regular rate/rhythm, Normal S1 S2 Gastrointestinal: Normal bowel sounds, No tenderness Musculoskeletal: No tenderness Integumentary: No rashes Neurological: Normal speech, Normal tone, Normal affect Lymphatics: No axilla or inguinal lymphadenopathy - Studies Laboratory Data (last 24 hrs) 11/20/22 11/20/22 11/20/22 14:11 14:11 14:11 WBC 6.60 Hgb 13.7 Hct 43.0 Plt Count 238 PT 15.8 H INR 1.44 APTT 37.8 H Sodium 136 Potassium 4.0 BUN 16 Creatinine 1.04 H Glucose 159 H Total Bilirubin 0.3 AST 18 ALT 17 Alkaline Phosphatase 64 Microbiology Data (last 24 hrs): 11/20/22 14:11 Blood - Blood Anaerobic Blood Culture - Final 11/20/22 14:30 Blood - Blood Anaerobic Blood Culture - Final Medications List Reviewed: Yes Assessment And Plan - Current Problems (Diagnosis) (1) Severe protein-energy malnutrition Current Visit: Yes Status: Chronic Plan: will order pt and see if we can move the patient to a PT center or snf. She is getting weaker. Can not transfer without assistance. 11/21 Patient is doing a little better. Will need to start PT and start weaning her med list. Will start with simvastatin. No mortality benefit at this age sedatives and narcotics should be minimized. Will put her on scheduled tylenol to try decreasing the hydrocodone consider decreasing the beta blockers and flecanide. (2) Afib Current Visit: No Status: Chronic Plan: may need to wean down her beta barbara 11/21 pulse is low will try lowering he beta barbara dosage. Qualifiers: Atrial fibrillation type: unspecified chronic Qualified Code(s): I48.20 - Chronic atrial fibrillation, unspecified; I48.2 - Chronic atrial fibrillation (3) GERD (gastroesophageal reflux disease) Current Visit: No Status: Acute Plan: restart home protonix. Qualifiers: Esophagitis presence: esophagitis presence not specified Qualified Code(s): K21.9 - Gastro-esophageal reflux disease without esophagitis (4) Dementia Current Visit: No Status: Chronic Plan: restart namenda Qualifiers: Dementia type: unspecified type Qualified Code(s): F03.90 - Unspecified dementia, unspecified severity, without behavioral disturbance, psychotic disturbance, mood disturbance, and anxiety (5) UTI (urinary tract infection) Onset Date: 01/12/18 Current Visit: No Status: Acute Plan: will restart the levaquin and the nitrofurantin Qualifiers: Urinary tract infection type: acute cystitis Hematuria presence: without hematuria Qualified Code(s): N30.00 - Acute cystitis without hematuria Discharge Plan: Shelter Plan to discharge in: Greater than 2 days - Code Status/Comfort Care Code Status Assessed: No Physician Review: Patient Assessed, Agree with Above Assessment and Plan Critical Care: No Time Spent Managing PTS Care (In Minutes): 20
[2022-11-21] MEDS: MEMANTINE HCL 10 MG TABLET PO SCH (08:49)
[2022-11-21] MEDS: NITROFURAN MACRO 100 MG CAP PO SCH ×2 (08:50→21:20)
[2022-11-21] MEDS: ACETAMINOPHEN 500 MG TAB PO SCH ×4 (08:51→21:21)
[2022-11-21] MEDS: APIXABAN 5 MG TABLET PO SCH ×2 (08:51→21:20)
[2022-11-21] MEDS: TOPIRAMATE 100 MG TAB PO SCH ×2 (08:51→21:21)
[2022-11-21] MEDS: BUPROPION HCL XL 150 MG TAB PO SCH ×2 (09:00→11:42)
[2022-11-21] MEDS: DULOXETINE 30 MG CAP PO SCH (21:20)
[2022-11-22] MEDS ORDERED: carvediloL 3.125 MG TAB PO SCH (06:00)
[2022-11-22] MEDS: LEVOTHYROXINE SOD 0.075 MG TAB PO SCH (06:00)
[2022-11-22] MEDS: PANTOPRAZOLE 40MG TABLET PO SCH (06:00)
[2022-11-22 07:26] LABS: Absolute Lymphocytes (CBC) 1.7 K/uL (0.7-4.9); Hematocrit 42.5 % (36.0-45.0); MCV 99.8 fL (80-100); MPV 7.9 fL (7.6-11.3); Platelets 208 thou/uL (152-406); RBC Red Blood Cell Count 4.26 M/uL (3.86-4.86)
[2022-11-22 07:45] LABS: Albumin 2.6 g/dL (3.4-5.0); Bilirubin Total 0.5 mg/dL (0.2-1.0); Potassium 3.7 mEq/L (3.5-5.1); Protein, Total 5.9 g/dL (6.4-8.2)
[2022-11-22] MEDS: APIXABAN 5 MG TABLET PO SCH ×2 (10:00→20:02)
[2022-11-22] MEDS: ACETAMINOPHEN 500 MG TAB PO SCH ×3 (10:01→20:03)
[2022-11-22] MEDS: TOPIRAMATE 100 MG TAB PO SCH ×2 (10:01→20:02)
[2022-11-22] MEDS: NITROFURAN MACRO 100 MG CAP PO SCH ×2 (10:02→20:05)
[2022-11-22] MEDS: MEMANTINE HCL 10 MG TABLET PO SCH (10:09)
[2022-11-22] MEDS: BUPROPION HCL XL 150 MG TAB PO SCH (10:09)
--- NOTE | 2022-11-22 12:38 | P.PN ---
Subjective Date of Service: 11/22/22 Primary Care Provider: Melissa Chief Complaint: uti protein energy malnutrition Subjective: No new changes patient still complainting of weakness Review of Systems 10-point ROS is otherwise unremarkable General: Weakness Physical Examination - Vital Signs Temperature: 98 F Blood Pressure: 141/70 Pulse: 76 Respirations: 20 Pulse Ox (%): 100 - Physical Exam General: Alert, Mild distress HEENT: Atraumatic, PERRLA, EOMI Neck: Supple, JVD not distended Respiratory: Clear to auscultation bilaterally, Normal air movement Cardiovascular: Regular rate/rhythm, Normal S1 S2 Gastrointestinal: Normal bowel sounds, No tenderness Musculoskeletal: No tenderness Integumentary: No rashes Neurological: Normal speech, Normal tone, Normal affect Lymphatics: No axilla or inguinal lymphadenopathy - Studies Microbiology Data (last 24 hrs): 11/20/22 14:30 Blood - Blood Anaerobic Blood Culture - Final 11/20/22 14:11 Blood - Blood Anaerobic Blood Culture - Final Medications List Reviewed: Yes Assessment And Plan - Current Problems (Diagnosis) (1) Severe protein-energy malnutrition Current Visit: Yes Status: Chronic Plan: will order pt and see if we can move the patient to a PT center or snf. She is getting weaker. Can not transfer without assistance. 11/21 Patient is doing a little better. Will need to start PT and start weaning her med list. Will start with simvastatin. No mortality benefit at this age sedatives and narcotics should be minimized. Will put her on scheduled tylenol to try decreasing the hydrocodone consider decreasing the beta blockers and flecanide. (2) Afib Current Visit: No Status: Chronic Plan: may need to wean down her beta barbara 11/22 pulse is still low. Will stop the betablocker and continue flecanide on the patient Qualifiers: Atrial fibrillation type: unspecified chronic Qualified Code(s): I48.20 - Chronic atrial fibrillation, unspecified; I48.2 - Chronic atrial fibrillation (3) GERD (gastroesophageal reflux disease) Current Visit: No Status: Acute Plan: restart home protonix. Qualifiers: Esophagitis presence: esophagitis presence not specified Qualified Code(s): K21.9 - Gastro-esophageal reflux disease without esophagitis (4) Dementia Current Visit: No Status: Chronic Plan: restart namenda Qualifiers: Dementia type: unspecified type Qualified Code(s): F03.90 - Unspecified dementia, unspecified severity, without behavioral disturbance, psychotic disturbance, mood disturbance, and anxiety (5) UTI (urinary tract infection) Onset Date: 01/12/18 Current Visit: No Status: Acute Plan: will restart the levaquin and the nitrofurantin Qualifiers: Urinary tract infection type: acute cystitis Hematuria presence: without hematuria Qualified Code(s): N30.00 - Acute cystitis without hematuria Discharge Plan: Home Plan to discharge in: 24 Hours - Code Status/Comfort Care Code Status Assessed: No Physician Review: Patient Assessed, Agree with Above Assessment and Plan Critical Care: No Time Spent Managing PTS Care (In Minutes): 20
[2022-11-22] MEDS: MECLIZINE HCL 12.5 MG TAB PO PRN ×2 (13:46→20:08)
[2022-11-22] MEDS ORDERED: MECLIZINE HCL 12.5 MG TAB PO SCH (14:00)
[2022-11-22] MEDS: FLECAINIDE ACETATE 50 MG PO SCH (16:26)
[2022-11-22] MEDS: DULOXETINE 30 MG CAP PO SCH (20:02)
[2022-11-22] MEDS: DULOXETINE HCL 60 MG PO SCH (20:02)
[2022-11-23] MEDS: PANTOPRAZOLE 40MG TABLET PO SCH (05:35)
[2022-11-23] MEDS: LEVOTHYROXINE SOD 0.075 MG TAB PO SCH (05:35)
[2022-11-23 07:18] LABS: Absolute Lymphocytes (CBC) 1.7 K/uL (0.7-4.9); Hematocrit 43.2 % (36.0-45.0); Lymphocytes % 27.3 % (15.3-44.8); MCV 99.2 fL (80-100); MPV 8.2 fL (7.6-11.3); Platelets 222 thou/uL (152-406); RBC Red Blood Cell Count 4.35 M/uL (3.86-4.86)
[2022-11-23 07:33] LABS: Albumin 2.7 g/dL (3.4-5.0); Bilirubin Total 0.6 mg/dL (0.2-1.0); Potassium 3.6 mEq/L (3.5-5.1)
[2022-11-23] MEDS: DULOXETINE HCL 60 MG PO SCH ×2 (09:00→22:13)
[2022-11-23] MEDS: FLECAINIDE ACETATE 50 MG PO SCH ×2 (09:00→22:12)
[2022-11-23] MEDS: NITROFURAN MACRO 100 MG CAP PO SCH ×2 (09:17→22:18)
[2022-11-23] MEDS: ACETAMINOPHEN 500 MG TAB PO SCH ×3 (09:18→21:00)
[2022-11-23] MEDS: TOPIRAMATE 100 MG TAB PO SCH ×2 (09:18→22:11)
[2022-11-23] MEDS: MEMANTINE HCL 10 MG TABLET PO SCH (09:18)
[2022-11-23] MEDS: BUPROPION HCL XL 150 MG TAB PO SCH (09:19)
[2022-11-23] MEDS: APIXABAN 5 MG TABLET PO SCH ×2 (09:19→22:10)
--- NOTE | 2022-11-23 11:59 | P.PN ---
Subjective Date of Service: 11/23/22 Primary Care Provider: Melissa Chief Complaint: uti protein energy malnutrition patient still complainting of weakness Review of Systems 10-point ROS is otherwise unremarkable General: Weakness Musculoskeletal: Neck Pain Physical Examination - Vital Signs Temperature: 97.8 F Blood Pressure: 139/67 Pulse: 65 Respirations: 16 Pulse Ox (%): 91 - Physical Exam General: Alert, In no apparent distress HEENT: Atraumatic, PERRLA, EOMI Neck: Supple, JVD not distended Respiratory: Clear to auscultation bilaterally, Normal air movement Cardiovascular: Regular rate/rhythm, Normal S1 S2 Gastrointestinal: Normal bowel sounds, No tenderness Musculoskeletal: No tenderness Integumentary: No rashes Neurological: Normal speech, Normal tone, Normal affect Lymphatics: No axilla or inguinal lymphadenopathy - Studies Medications List Reviewed: Yes Assessment And Plan - Current Problems (Diagnosis) (1) Severe protein-energy malnutrition Current Visit: Yes Status: Chronic Plan: will order pt and see if we can move the patient to a PT center or snf. She is getting weaker. Can not transfer without assistance. 8.6 will have the patient sit up in the chair today. She seems to have assumed the sick role. Have had a long discussion with her children Asked them to be my good/bad copra sampler to get the patient more mobile. 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 The adult son and daughter agreed with this assessment (2) Afib Current Visit: No Status: Chronic Plan: may need to wean down her beta barbara 8/ pulse is still low. Will stop the betablocker and continue flecanide on the patient Qualifiers: Atrial fibrillation type: unspecified chronic Qualified Code(s): I48.20 - Chronic atrial fibrillation, unspecified; I48.2 - Chronic atrial fibrillation (3) GERD (gastroesophageal reflux disease) Current Visit: No Status: Acute Plan: restart home protonix. Qualifiers: Esophagitis presence: esophagitis presence not specified Qualified Code(s): K21.9 - Gastro-esophageal reflux disease without esophagitis (4) Dementia Current Visit: No Status: Chronic Plan: restart namenda Qualifiers: Dementia type: unspecified type Qualified Code(s): F03.90 - Unspecified dementia, unspecified severity, without behavioral disturbance, psychotic disturbance, mood disturbance, and anxiety (5) UTI (urinary tract infection) Onset Date: 01/12/18 Current Visit: No Status: Acute Plan: will restart the levaquin and the nitrofurantin Qualifiers: Urinary tract infection type: acute cystitis Hematuria presence: without hematuria Qualified Code(s): N30.00 - Acute cystitis without hematuria Discharge Plan: Assisted Plan to discharge in: 24 Hours - Code Status/Comfort Care Code Status Assessed: No Physician Review: Patient Assessed, Agree with Above Assessment and Plan Critical Care: No Time Spent Managing PTS Care (In Minutes): 25
[2022-11-23] MEDS: MECLIZINE HCL 12.5 MG TAB PO PRN (13:19)
[2022-11-23] MEDS: HYDROCODONE/APAP 5/325 MG TAB PO PRN (22:18)
[2022-11-24 01:05] VITALS: O2SAT 95
[2022-11-24] MEDS: PANTOPRAZOLE 40MG TABLET PO SCH (06:11)
[2022-11-24] MEDS: LEVOTHYROXINE SOD 0.075 MG TAB PO SCH (06:11)
--- NOTE | 2022-11-24 08:31 | P.PN ---
Subjective Date of Service: 11/24/22 Primary Care Provider: Melissa Chief Complaint: uti protein energy malnutrition patient has some relieve with anti vert Review of Systems 10-point ROS is otherwise unremarkable General: Weakness, Other (dizziness) Physical Examination - Vital Signs Temperature: 97 F Blood Pressure: 156/75 Pulse: 67 Respirations: 18 Pulse Ox (%): 94 - Physical Exam General: Alert, In no apparent distress HEENT: Atraumatic, PERRLA, EOMI Neck: Supple, JVD not distended Respiratory: Clear to auscultation bilaterally, Normal air movement Cardiovascular: Regular rate/rhythm, Normal S1 S2 Gastrointestinal: Normal bowel sounds, No tenderness Musculoskeletal: No tenderness Integumentary: No rashes Neurological: Normal speech, Normal tone, Normal affect Lymphatics: No axilla or inguinal lymphadenopathy - Studies Medications List Reviewed: Yes Assessment And Plan - Current Problems (Diagnosis) (1) Severe protein-energy malnutrition Current Visit: Yes Status: Chronic Plan: will order pt and see if we can move the patient to a PT center or snf. She is getting weaker. Can not transfer without assistance. 8.7 Possible transfer to [place] today (2) Afib Current Visit: No Status: Chronic Plan: may need to wean down her beta barbara 8/ pulse is still low. Will stop the betablocker and continue flecanide on the pat ient Qualifiers: Atrial fibrillation type: unspecified chronic Qualified Code(s): I48.20 - Chronic atrial fibrillation, unspecified; I48.2 - Chronic atrial fibrillation (3) GERD (gastroesophageal reflux disease) Current Visit: No Status: Acute Plan: restart home protonix. Qualifiers: Esophagitis presence: esophagitis presence not specified Qualified Code(s): K21.9 - Gastro-esophageal reflux disease without esophagitis (4) Dementia Current Visit: No Status: Chronic Plan: restart namenda Qualifiers: Dementia type: unspecified type Qualified Code(s): F03.90 - Unspecified dementia, unspecified severity, without behavioral disturbance, psychotic disturbance, mood disturbance, and anxiety (5) UTI (urinary tract infection) Onset Date: 01/12/18 Current Visit: No Status: Acute Plan: will restart the levaquin and the nitrofurantin Qualifiers: Urinary tract infection type: acute cystitis Hematuria presence: without hematuria Qualified Code(s): N30.00 - Acute cystitis without hematuria Discharge Plan: Skilled Nursing Plan to discharge in: 24 Hours - Code Status/Comfort Care Code Status Assessed: No Physician Review: Patient Assessed, Agree with Above Assessment and Plan Critical Care: No Time Spent Managing PTS Care (In Minutes): 20
[2022-11-24] MEDS: BUPROPION HCL XL 150 MG TAB PO SCH (09:46)
[2022-11-24] MEDS: FLECAINIDE ACETATE 50 MG PO SCH ×2 (09:46→20:51)
[2022-11-24] MEDS: DULOXETINE HCL 60 MG PO SCH ×2 (09:46→20:51)
[2022-11-24] MEDS: NITROFURAN MACRO 100 MG CAP PO SCH ×2 (09:46→20:49)
[2022-11-24] MEDS: ACETAMINOPHEN 500 MG TAB PO SCH ×3 (09:47→20:50)
[2022-11-24] MEDS: APIXABAN 5 MG TABLET PO SCH ×2 (09:47→20:50)
[2022-11-24] MEDS: TOPIRAMATE 100 MG TAB PO SCH ×2 (09:47→20:49)
[2022-11-24] MEDS: MEMANTINE HCL 10 MG TABLET PO SCH (09:48)
--- NOTE | 2022-11-24 13:16 | EKG ---
Test Date: 2022-11-20 Test Time: 15:28:51 Billposter: ROBERT MEASUREMENT RESULTS: Intervals: Rate: 61 MT: 228 QRSD: 100 QT: 424 QTc: 426 [place]: P: 77 MT: 228 QRS: 75 T: 75 INTERPRETIVE STATEMENTS: Sinus rhythm with 1st degree AV block ST & T wave abnormality, consider anterior ischemia Abnormal ECG Compared to ECG 04/02/2022 18:31:55 Possible ischemia now present Right-axis deviation no longer present ST (T wave) deviation still present Electronically Signed On 11-24-22 13:11:04 CDT by Christopher Chirinos
[2022-11-24] MEDS: MECLIZINE HCL 12.5 MG TAB PO PRN ×2 (14:43→23:01)
[2022-11-25] MEDS: PANTOPRAZOLE 40MG TABLET PO SCH (05:57)
[2022-11-25] MEDS: LEVOTHYROXINE SOD 0.075 MG TAB PO SCH (05:57)
--- NOTE | 2022-11-25 08:24 | P.DS ---
Admission Date: 11/20/22 Discharge Date: 11/25/22 Primary Care Provider: Melissa Disposition: TRANSFER TO [facility]ISON Discharge Condition: GOOD Reason for Admission: uti protein energy malnutrition - Problems (1) Severe protein-energy malnutrition Current Visit: Yes Status: Chronic (2) Afib Current Visit: No Status: Chronic Qualifiers: Atrial fibrillation type: unspecified chronic Qualified Code(s): I48.20 - Chronic atrial fibrillation, unspecified; I48.2 - Chronic atrial fibrillation (3) GERD (gastroesophageal reflux disease) Current Visit: No Status: Acute Qualifiers: Esophagitis presence: esophagitis presence not specified Qualified Code(s): K21.9 - Gastro-esophageal reflux disease without esophagitis (4) Dementia Current Visit: No Status: Chronic Qualifiers: Dementia type: unspecified type Qualified Code(s): F03.90 - Unspecified dementia, unspecified severity, without behavioral disturbance, psychotic disturbance, mood disturbance, and anxiety (5) UTI (urinary tract infection) Onset Date: 01/12/18 Current Visit: No Status: Acute Qualifiers: Urinary tract infection type: acute cystitis Hematuria presence: without hematuria Qualified Code(s): N30.00 - Acute cystitis without hematuria Brief History of Present Illness: patient of Dr. Torres. She has a history of copd, afib hypothyroidism. The patient fell 10 days ago and hit her head. Since then she has become more bed bound. Needs assistance to get to and from the [facility]. She had a uti. Was seen by Dr. Torres and was started on levaquin and then added nitrofurantin. She was getting weaker and was told to come to the ER. She has no confusion. However the patient has no home health or PT. She has one son at home. She is a fall risk Hospital Course: Patient came in with uti and decreased activity. She was treated with iv antibiotics. The patient worked well with PT. She will be sent to a snf for further PT. The family chose [facility] Thank you for allowing me to take part in her care. Vital Signs/Physical Exam: Temp Pulse Resp BP Pulse Ox 97.9 F 81 18 147/63 H 94 11/25/22 07:59 11/25/22 07:59 11/25/22 07:59 11/25/22 07:59 11/25/22 07:59 General: Alert, In no apparent distress HEENT: Atraumatic, PERRLA, EOMI Neck: Supple, JVD not distended Respiratory: Clear to auscultation bilaterally, Normal air movement Cardiovascular: Regular rate/rhythm, Normal S1 S2 Gastrointestinal: Normal bowel sounds, No tenderness Musculoskeletal: No tenderness Integumentary: No rashes Neurological: Normal speech, Normal tone, Normal affect Lymphatics: No axilla or inguinal lymphadenopathy Laboratory Data at Discharge: WBC 6.40 thou/uL (4.3-10.9) 11/23/22 06:51 Hgb 13.9 g/dL (12.0-15.0) 11/23/22 06:51 Hct 43.2 % (36.0-45.0) 11/23/22 06:51 Plt Count 222 thou/uL (152-406) 11/23/22 06:51 PT 15.8 SECONDS (9.5-12.5) H 11/20/22 14:11 INR 1.44 11/20/22 14:11 APTT 37.8 SECONDS (24.3-36.9) H 11/20/22 14:11 Sodium 140 mEq/L (136-145) 11/23/22 06:51 Potassium 3.6 mEq/L (3.5-5.1) 11/23/22 06:51 BUN 11 mg/dL (7-18) 11/23/22 06:51 Creatinine 0.92 mg/dL (0.55-1.02) 11/23/22 06:51 Glucose 97 mg/dL (74-106) 11/23/22 06:51 Total Bilirubin 0.6 mg/dL (0.2-1.0) 11/23/22 06:51 AST 21 U/L (15-37) 11/23/22 06:51 ALT 21 U/L (13-56) 11/23/22 06:51 Alkaline Phosphatase 63 U/L (45-117) 11/23/22 06:51 Home Medications: Albuterol Sulfate [Proair Respiclick] 2 puff IH Q6HP PRN 06/11/21 Apixaban [Eliquis] 5 mg PO BID 06/11/21 Cyanocobalamin (Vitamin B-12) [Vitamin B12] 1,000 mcg PO DAILY 06/11/21 Cyclosporine [Restasis] 1 drop EACH EYE TID 06/11/21 Duloxetine HCl 60 mg PO BID 06/11/21 Estradiol 0.01% Cream 1 appl VAG SEECOM 06/11/21 Flecainide Acetate 50 mg PO BID 06/11/21 Gabapentin 300 mg PO BEDTIME 06/11/21 Levothyroxine [Synthroid*] 0.075 mcg PO [id number] 06/11/21 Memantine HCl 10 mg PO BID 06/11/21 Montelukast [Singulair*] 10 mg PO DAILY 06/11/21 Pantoprazole [Protonix Tab*] 40 mg PO DAILY 06/11/21 Potassium Chloride 20 meq PO BID 06/11/21 Simvastatin 40 mg PO BEDTIME 06/11/21 Topiramate 100 mg PO BID 06/11/21 buPROPion HCL [Bupropion Xl] 300 mg PO DAILY 06/11/21 Pataday 0.7% Drops 1 drop OPTH DAILY 12/31/21 Propylene Glycol/Peg 400 [Lubricating Eye Drop] 1 drop OPTH BID 12/31/21 Cranberry Fruit Extract [Ellura] 500 mg PO DAILY 02/11/22 Cephalexin [Keflex] 500 mg PO Q6HR 7 Days #28 cap 02/13/22 Hydrocodone Bit/Acetaminophen [Hydrocodon-Acetaminophen 5-325] 5 - 325 mg PO BID 11/20/22 Metoprolol Succinate [Toprol Xl*] 12.5 mg PO BEDTIME 11/20/22 Temazepam [Restoril] 7.5 mg PO BEDTIME 11/20/22 Diet: Regular Activity: Ad héctor Followup: Jerry Torres MD [Primary Care Provider] - Time spent managing pt's care (in minutes): 30
[2022-11-25] MEDS: BUPROPION HCL XL 150 MG TAB PO SCH (08:47)
[2022-11-25] MEDS: APIXABAN 5 MG TABLET PO SCH ×2 (08:48→20:04)
[2022-11-25] MEDS: MEMANTINE HCL 10 MG TABLET PO SCH (08:48)
[2022-11-25] MEDS: NITROFURAN MACRO 100 MG CAP PO SCH ×2 (08:48→20:02)
[2022-11-25] MEDS: ACETAMINOPHEN 500 MG TAB PO SCH ×3 (08:48→20:03)
[2022-11-25] MEDS: MECLIZINE HCL 12.5 MG TAB PO PRN ×2 (08:48→12:08)
[2022-11-25] MEDS: TOPIRAMATE 100 MG TAB PO SCH ×2 (08:48→20:02)
[2022-11-25] MEDS: DULOXETINE HCL 60 MG PO SCH ×2 (08:48→20:01)
[2022-11-25] MEDS: FLECAINIDE ACETATE 50 MG PO SCH ×2 (08:49→20:02)
[2022-11-26] MEDS: PANTOPRAZOLE 40MG TABLET PO SCH (05:36)
[2022-11-26] MEDS: LEVOTHYROXINE SOD 0.075 MG TAB PO SCH (05:36)
--- NOTE | 2022-11-26 08:13 | P.PN ---
Subjective Date of Service: 11/26/22 Primary Care Provider: Melissa Chief Complaint: uti protein energy malnutrition Patient discharge held due to insurance approval. Awaiting insurance Review of Systems 10-point ROS is otherwise unremarkable Physical Examination - Vital Signs Temperature: 97.9 F Blood Pressure: 176/76 Pulse: 78 Respirations: 18 Pulse Ox (%): 96 - Physical Exam General: Alert, In no apparent distress HEENT: Atraumatic, PERRLA, EOMI Neck: Supple, JVD not distended Respiratory: Clear to auscultation bilaterally, Normal air movement Cardiovascular: Regular rate/rhythm, Normal S1 S2 Gastrointestinal: Normal bowel sounds, No tenderness Musculoskeletal: No tenderness Integumentary: No rashes Neurological: Normal speech, Normal tone, Normal affect Lymphatics: No axilla or inguinal lymphadenopathy - Studies Microbiology Data (last 24 hrs): 11/20/22 14:30 Blood - Blood Aerobic Blood Culture - Final No growth in 5 days. 11/20/22 14:30 Blood - Blood Anaerobic Blood Culture - Final 11/20/22 14:11 Blood - Blood Aerobic Blood Culture - Final No growth in 5 days. 11/20/22 14:11 Blood - Blood Anaerobic Blood Culture - Final Medications List Reviewed: Yes Assessment And Plan - Current Problems (Diagnosis) (1) Severe protein-energy malnutrition Current Visit: Yes Status: Chronic Plan: will order pt and see if we can move the patient to a PT center or snf. She is getting weaker. Can not transfer without assistance. 8.7 Possible transfer to [place] today (2) Afib Current Visit: No Status: Chronic Plan: may need to wean down her beta barbara 8/ pulse is still low. Will stop the betablocker and continue flecanide on the patient Qualifiers: Atrial fibrillation type: unspecified chronic Qualified Code(s): I48.20 - Chronic atrial fibrillation, unspecified; I48.2 - Chronic atrial fibrillation (3) GERD (gastroesophageal reflux disease) Current Visit: No Status: Acute Plan: restart home protonix. Qualifiers: Esophagitis presence: esophagitis presence not specified Qualified Code(s): K21.9 - Gastro-esophageal reflux disease without esophagitis (4) Dementia Current Visit: No Status: Chronic Plan: restart namenda Qualifiers: Dementia type: unspecified type Qualified Code(s): F03.90 - Unspecified dementia, unspecified severity, without behavioral disturbance, psychotic disturbance, mood disturbance, and anxiety (5) UTI (urinary tract infection) Onset Date: 01/12/18 Current Visit: No Status: Acute Plan: will restart the levaquin and the nitrofurantin Qualifiers: Urinary tract infection type: acute cystitis Hematuria presence: without hematuria Qualified Code(s): N30.00 - Acute cystitis without hematuria Discharge Plan: Residential Plan to discharge in: 24 Hours - Code Status/Comfort Care Code Status Assessed: No Physician Review: Patient Assessed, Agree with Above Assessment and Plan Critical Care: No Time Spent Managing PTS Care (In Minutes): 20
[2022-11-26] MEDS: ACETAMINOPHEN 500 MG TAB PO SCH ×2 (08:36→14:00)
[2022-11-26] MEDS: TOPIRAMATE 100 MG TAB PO SCH (08:36)
[2022-11-26] MEDS: MEMANTINE HCL 10 MG TABLET PO SCH (08:36)
[2022-11-26] MEDS: BUPROPION HCL XL 150 MG TAB PO SCH (08:36)
[2022-11-26] MEDS: APIXABAN 5 MG TABLET PO SCH (08:36)
[2022-11-26] MEDS: FLECAINIDE ACETATE 50 MG PO SCH (08:37)
[2022-11-26] MEDS: DULOXETINE HCL 60 MG PO SCH (08:37)
[2022-11-26] MEDS ORDERED: BISACODYL E.C. 5 MG TAB PO SCH (10:56)
[2022-11-26] MEDS: HYDROCODONE/APAP 5/325 MG TAB PO PRN (11:34)
[2022-11-26 17:03] VITALS: BP 142/67; TEMP 98.5
== END 2022-11-26 17:40 | disposition home health service (06) | DRG 689 ==
LOC: ER 12:38 → ERHOLD 18:44 → 4TH 20:18
PROVIDERS: ADMIT Internal Medicine; ATTEND Internal Medicine
DX: N30.00 Acute cystitis without hematuria (principal); E43 Unspecified severe protein-calorie malnutrition; I48.20 Chronic atrial fibrillation, unspecified; E03.9 Hypothyroidism, unspecified; I10 Essential (primary) hypertension; K21.9 Gastro-esophageal reflux disease without esophagitis; J44.9 Chronic obstructive pulmonary disease, unspecified; E78.5 Hyperlipidemia, unspecified; M79.7 Fibromyalgia; G30.9 Alzheimer's disease, unspecified; F02.80 Dementia in other diseases classified elsewhere, unspecified severity, without behavioral disturbance, psychotic disturbance, mood disturbance, and anxiety; R29.6 Repeated falls; Z88.8 Allergy status to other drugs, medicaments and biological substances; Z88.0 Allergy status to penicillin; Z88.1 Allergy status to other antibiotic agents; Z88.2 Allergy status to sulfonamides; Z85.3 Personal history of malignant neoplasm of breast; Z91.81 History of falling; Z90.12 Acquired absence of left breast and nipple; Z79.01 Long term (current) use of anticoagulants; Z90.49 Acquired absence of other specified parts of digestive tract; Z90.710 Acquired absence of both cervix and uterus; Z79.890 Hormone replacement therapy; Z79.899 Other long term (current) drug therapy; Z87.891 Personal history of nicotine dependence; Z96.653 Presence of artificial knee joint, bilateral; Z86.711 Personal history of pulmonary embolism
CPT/HCPCS: 36415; 70450; 72125; 80053; 81001; 83605; 85025; 85610; 85730; 87040; 93005; 96360; 96361; 97116; 97161; 97530; 99285; J7120; J8597

== ENCOUNTER 2024-01-06 07:30 | Emergency (ER) | payer OTHER ==
[2024-01-06] MEDS ORDERED: FENTANYL CITR 100 MCG/2 ML ONE (08:24)
[2024-01-06 09:15] LABS: Absolute Eosinophils 0.2 K/uL (0-0.5); Absolute Lymphocytes (CBC) 1.4 K/uL (0.7-4.9); Absolute Monocytes 0.7 K/uL (0.1-1.3); Absolute Neutrophil 5.8 K/uL (1.8-8.0); Basophils % 0.6 % (0-1.3); Eosinophils % 2.4 % (0-4.4); Hematocrit 40.8 % (36.0-45.0); Hemoglobin 13.3 g/dL (12.0-15.0); Lymphocytes % 16.8 % (15.3-44.8); MCH 31.2 pg (27.0-35.0); MCHC 32.4 g/dL (32.0-36.0); MCV 96.1 fL (80-100); MPV 8.6 fL (7.6-11.3); Monocytes % 9.1 % (3.3-12.3); Neutrophils % 71.1 % (41.7-73.7); Nucleated Red Blood Cells % 0.1 % (0-0); Platelets 233 thou/uL (152-406); RBC Red Blood Cell Count 4.25 M/uL (3.86-4.86); Red Cell Distribution Width 15.3 % (12.1-15.2)
[2024-01-06 09:23] LABS: PT Prothrombin Time 15.9 SECONDS (9.4-12.5); PTT, Activated Partial Thromb 34.6 SECONDS (24.3-36.9); Protime INR 1.43
--- NOTE | 2024-01-06 09:28 | RAD REPORT ---
EXAM: Knee Right 3 View HISTORY: [facility] MAIN PAIN Bed Name: 6 COMPARISON: 05/15/2020 TECHNIQUE: 3 views of the right knee were obtained. FINDINGS: No knee effusion is seen. There is no evidence of acute fracture or dislocation. Right tota l hip arthroplasty hardware in unchanged alignment. No significant degenerative changes are seen. No soft tissue swelling is present. IMPRESSION: No evidence of acute osseous abnormality.
--- NOTE | 2024-01-06 09:33 | RAD REPORT ---
EXAMINATION: Ankle Left 3 View CLINICAL INDICATION: Female, 83 years old. [facility] MAIN Pain;Swelling Bed Name: 6 TECHNIQUE: 3 view radiographs of the left ankle were obtained. COMPARISON: 01/25/2009 FINDINGS: No bone or joint abnormality seen. Heterogeneous radiodensity at the tip of the lateral mal leolus suggesting periosteal reaction. Soft tissue swelling about the ankle most pronounced laterally and anteriorly IMPRESSION: Periosteal reaction at the tip of the lateral malleolus, may suggest a healing fracture. Pronounced s oft tissue swelling about the ankle most pronounced laterally and anteriorly.
--- NOTE | 2024-01-06 09:44 | RAD REPORT ---
EXAM: CT brain without contrast HISTORY: [facility] TRAUMA Bed Name: 6 COMPARISON: None TECHNIQUE: Multiple contiguous axial images were obtained and a CT of the brain without contrast. Sag ittal and coronal reformats were performed. FINDINGS:No evidence of hydrocephalus, intracranial hemorrhage, or extra-axial fluid collection. Mild diffuse parenchymal volume loss commensurate with age. The brain is normal in morphology. The calvarium is intact. The visualized paranasal sinuses and mastoid air cells are essentially clear . IMPRESSION: No evidence of acute intracranial abnormality. EXAM: CT of the cervical spine without contrast HISTORY: [facility] TRAUMA Bed Name: 6 COMPARISON: None TECHNIQUE: Multiple contiguous axial images were obtained in a CT of the cervical spine without contr ast. Sagittal and coronal reformats were performed. FINDINGS: The vertebral bodies demonstrate normal height and alignment. No evidence of acute fracture or subluxation.. No degenerative changes are present. No prevertebral soft tissue swelling is seen. The posterior facets are well aligned. Sequelae of anterior fusion with interbody spacers spanning C4 -C7. Normal alignment of the skull base with the cervical spine is seen. The lung apices are unremarkable. IMPRESSION: No evidence of acute osseous abnormality of the cervical spine.
[2024-01-06 09:54] LABS: Albumin 2.7 g/dL (3.4-5.0); Albumin/Globulin Ratio 0.7 (1.1-1.8); Bilirubin Total 0.3 mg/dL (0.2-1.0); Globulin 3.7 g/dL (2.3-3.5); Magnesium 1.8 mg/dL (1.6-2.4); Protein, Total 6.4 g/dL (6.4-8.2); Troponin High Sensitivity 5.9 pg/mL (<58.9)
--- NOTE | 2024-01-06 11:11 | EDPHYS ---
Physician Documentation [facility] Name: Agnes Calabrese Age: 83 yrs Sex: Female : 1940 Arrival Date: 01/06/2024 Time: 07:30 Bed 6 Private MD: ED Physician Ciara Thomas HPI: 01/05 08:26 This 83 yrs old Female presents to ER via Wheelchair with complaints of Syncope, Fall sd2 Injury. 08:26 83-year-old female presents with chief complaint of syncopal episode with fall. Her sd2 children at bedside who are her caregivers report that she took a 10 mg [place] which she has been taking since her recent shoulder replacement surgery around 0600 and then got up to go to the restroom about 10 to 15 minutes later. She reports not feeling any significant lightheadedness or dizziness but does have Mnire's disease and intermittent dizziness. Her son reports that he was assisting her and noticed that she started to feel off balance and then she had a loss of consciousness. She was lowered down to the ground and they do not believe she had any significant head injury but she is on Eliquis. She reports significant pain and swelling to her left ankle and then some mild pain to her right knee which she has had a replacement for previously as well.. Historical: - Allergies: 07:52 clindamycin HCl (bulk); kc6 07:52 Darvocet-N 100; kc6 07:52 PENICILLINS; kc6 07:52 Strawberries; kc6 07:52 Sulfa (Sulfonamide Antibiotics); kc6 - PMHx: 07:52 AFIB; Alzheimer's disease; angina pectoris; Cancer; COPD; Depression; Fibromyalgia; kc6 GERD; Hyperlipidemia; Hypertension; Hypothyroidism; insomnia; left breast cancer; lymphedema; skipped heart beats; - PSHx: 07:52 Appendectomy; bilateral knee replacement; mastectomy; Spinal Fusion; Total abdominal kc6 hysterectomy; - Immunization history:: Client reports receiving the 2nd dose of the Covid vaccine, Flu vaccine is not up to date. - Infectious Disease History:: Denies. - Social history:: Smoking status: Patient denies any tobacco usage or history of. ROS: 08:26 Constitutional: Negative for fever, chills, and weight loss, Eyes: Negative for injury, sd2 pain, redness, and discharge, Neck: Negative for injury, pain, and swelling, Cardiovascular: Negative for chest pain, palpitations, and edema, Respiratory: Negative for shortness of breath, cough, wheezing. Abdomen/GI: Negative for abdominal pain, nausea, vomiting, diarrhea. Back: Negative for injury and pain, 08:26 Skin: Negative for injury, rash, and discoloration, Neuro: Negative for headache, numbness and tingling. 08:26 MS/extremity: Positive for injury or acute deformity, swelling, tenderness, Exam: 08:26 Constitutional: This is a well developed, well nourished patient who is awake, alert, sd2 and in no acute distress. Head/Face: Normocephalic, atraumatic. Eyes: EOMI, normal conjunctiva bilaterally Neck: Trachea midline, no thyromegaly or masses palpated, and no cervical lymphadenopathy. Supple, full range of motion without nuchal rigidity, or vertebral point tenderness. No Meningismus. Chest/axilla: Normal chest wall appearance and motion. Nontender with no deformity. Cardiovascular: Regular rate and rhythm with a normal S1 and S2. No gallops, murmurs, or rubs. 2+ distal pulses. Respiratory: Lungs have equal breath sounds bilaterally, clear to auscultation and percussion. No rales, rhonchi or wheezes noted. No increased work of breathing, no retractions or nasal flaring. Abdomen/GI: Soft, non-tender, with normal bowel sounds. No guarding or rebound. No evidence of tenderness throughout. Back: No spinal tenderness. No costovertebral tenderness. Full range of motion. Skin: Warm, dry with normal turgor. Normal color with no rashes, no lesions, and no evidence of cellulitis. MS/ Extremity: Pulses equal, no cyanosis. Neurovascular intact. Significant swelling and tenderness to palpation noted to the left medial and lateral malleolus. Mild tenderness to palpation of the right knee with no appreciable swelling or deformity. Full range of motion intact of the right knee Psych: Awake, alert, with orientation to person, place and time. Behavior, mood, and affect are within normal limits. 09:12 ECG was reviewed by the Attending Physician. Sinus bradycardia, rate 52, no STEMi sd2 criteria, 1st degree AV block Vital Signs: 07:50 BP 134 / 64; Pulse 56; Resp 19 S; Temp 97.6(O); Pulse Ox 95% on R/A; Weight 79.83 kg kc6 (R); Height 5 ft. 3 in. (R); Pain 8/10; 08:18 BP 113 / 62; Pulse 57; Resp 17 S; Pulse Ox 94% on R/A; kc6 09:15 Pulse 54; Resp 17 S; Pulse Ox 100% on R/A; kc6 10:48 BP 113 / 67; Pulse 51; Resp 16 S; Pulse Ox 98% on R/A; kc6 07:50 Body Mass Index 31.18 (79.83 kg, 160.02 cm) 6 07:50 Pain Scale: Adult kc6 MDM: 07:56 Patient medically screened. sd2 08:26 Differential Diagnosis: Vasovagal, orthostatic, ACS, anemia, dehydration, electrolyte sd2 abnormality, fracture, contusion, sprain, strain among others. Data reviewed: vital signs, nurses notes, lab test result(s), EKG, radiologic studies. I considered the following discharge prescriptions or medication management in the emergency department Medications were administered in the Emergency Department. See MAR. Historians other than the Patient: Daughter/Son: At bedside. Care significantly affected by the following chronic conditions: Cancer, A-fib. 10:57 Counseling: I had a detailed discussion with the patient and/or guardian regarding the sd2 historical points, exam findings, and any diagnostic results supporting the discharge/admit diagnosis, lab results, radiology results, the need for outpatient follow up, to return to the emergency department if symptoms worsen or persist or if there are any questions or concerns that arise at home. ED course: Labs and imaging reviewed. BP stable. Pt bradycardic likely 2/2 medication. Hx of A-fib and elevated HR on medications for. XR with possible fracture and splint applied. Pt to follow up outpatient with her current orthopedic surgeon for further evaluation. Advised of continued supportive care and need for f/u with PCP as well. Pt and son/daughter at comfortable with plan and verbalize understanding of strict return precautions.. 01/05 08:22 Order name: CBC with Diff; Complete Time: 09:46 sd2 01/05 08:22 Order name: CMP; Complete Time: 10:12 sd2 01/05 08:22 Order name: Magnesium; Complete Time: 10:12 sd01/05 08:22 Order name: Troponin High Sensitivity; Complete Time: 10:12 01/05 08:22 Order name: BNP; Complete Time: 10:12 01/05 08:22 Order name: PT-INR; Complete Time: 09:46 01/05 08:22 Order name: Ptt, Activated; Complete Time: 09:46 01/05 08:22 Order name: CT Head C Spine; Complete Time: 09:46 01/05 08:22 Order name: XRAY Knee RIGHT 3 view; Complete Time: 09:46 01/05 08:22 Order name: XRAY Ankle LEFT 3 view; Complete Time: 09:46 01/05 08:22 Order name: EKG - Nurse/Tech; Complete Time: 08:54 sd01/05 08:50 Order name: Labs - recollect needed: recollect green lavender blue top; Complete Time: bd 09:14 01/05 09:47 Order name: Ice pack; Complete Time: 09:51 sd01/05 10:13 Order name: Splint - Long Leg: Posterior w/ Stirrup; Complete Time: 10:48 sd2 Administered Medications: 09:15 Not Given (Other Intervention Used): fentanyl (pf)50 mcg IVP once kc6 09:15 Drug: fentaNYL (PF) IVP 25 mcg IVP once Route: IVP; Site: right hand; kc6 10:03 Follow up: Response: No adverse reaction; Pain is decreased; RASS: Drowsy (-1) kc6 11:24 Not Given (Other Intervention Used): fentanyl (pf)25 mcg IVP once kc6 Disposition Summary: 01/06/24 11:10 Discharge Ordered Problem: new sd2 Symptoms: have improved sd2 Condition: Stable sd2 Diagnosis - Syncope sd2 - Closed left ankle fracture sd2 - Right knee pain sd2 Followup: sd2 - With: Private Physician - When: 2 - 3 days - Reason: Recheck today's complaints, Continuance of care, Re-evaluation by your physician Discharge Instructions: - Discharge Summary Sheet sd2 - Ankle Fracture sd2 - Syncope sd2 Forms: - Medication Reconciliation Form sd2 - Antibiotic Education sd2 - Prescription Opioid Use sd2 - Patient Portal Instructions sd2 - Leadership Thank You Letter sd2 Signatures: Dispatcher MedSilvia De La Cruz Stephanie, MD MD sd2 Maame Antoine RN RN kc6
--- NOTE | 2024-01-06 11:11 | ER ---
Nurse's Notes [facility] Name: Agnes Calabrese Age: 83 yrs Sex: Female : 1940 Arrival Date: 01/06/2024 Time: 07:30 Bed 6 Private MD: Diagnosis: Syncope;Closed left ankle fracture;Right knee pain Presentation: 01/05 07:50 Chief complaint: Patient's son or daughter states: syncopal episode at 0615 after kc6 taking 10mg of a [place] at 0600. pt takes eliquis daily and reports left ankle pain 11/27. Coronavirus screen: At this time, the client does not indicate any symptoms associated with coronavirus-19. Ebola Screen: No symptoms or risks identified at this time. Initial Sepsis Screen: Does the patient meet any 2 criteria? No. Patient's initial sepsis screen is negative. Does the patient have a suspected source of infection? No. Patient's initial sepsis screen is negative. Risk Assessment: Do you want to hurt yourself or someone else? Patient reports no desire to harm self or others. Onset of symptoms was January 06, 2024. 07:50 Method Of Arrival: Wheelchair kc 07:50 Acuity: WARREN 3 kc6 Historical: - Allergies: 07:52 clindamycin HCl (bulk); kc6 07:52 Darvocet-N 100; kc6 07:52 PENICILLINS; kc6 07:52 Strawberries; kc6 07:52 Sulfa (Sulfonamide Antibiotics); kc6 - PMHx: 07:52 AFIB; Alzheimer's disease; angina pectoris; Cancer; COPD; Depression; Fibromyalgia; kc6 GERD; Hyperlipidemia; Hypertension; Hypothyroidism; insomnia; left breast cancer; lymphedema; skipped heart beats; - PSHx: 07:52 Appendectomy; bilateral knee replacement; mastectomy; Spinal Fusion; Total abdominal kc6 hysterectomy; - Immunization history:: Client reports receiving the 2nd dose of the Covid vaccine, Flu vaccine is not up to date. - Infectious Disease History:: Denies. - Social history:: Smoking status: Patient denies any tobacco usage or history of. Screenin:53 [facility] ED Fall Risk Assessment (Adult) History of falling in the last 3 months, 6 including since admission Yes- physiologic fall (2 pts) Confusion or Disorientation No (0 pts) Intoxicated or Sedated No (0 pts) Impaired Gait Yes (1 pt) Mobility Assist Device Used Yes (1 pt) Altered Elimination No (0 pt) Score/Fall Risk Level 3 or more points = High Risk Oriented to surroundings. Abuse screen: Denies threats or abuse. Denies injuries from another. Nutritional screening: No deficits noted. Tuberculosis screening: No symptoms or risk factors identified. Assessment: 07:53 General: Appears in no apparent distress. uncomfortable, obese, well groomed, well kc6 developed, Behavior is calm, cooperative, appropriate for age. Pain: Complains of pain in left foot Pain currently is 8 out of 10 on a pain scale. Neuro: Level of Consciousness is awake, alert, obeys commands, Oriented to person, place, time, situation, Appropriate for age Reports dizziness, a syncopal episode weakness. Cardiovascular: Capillary refill < 3 seconds. Respiratory: Airway is patent Trachea midline Respiratory effort is even, unlabored, Respiratory pattern is regular, symmetrical. GI: No signs and/or symptoms were reported involving the gastrointestinal system. : No signs and/or symptoms were reported regarding the genitourinary system. EENT: No signs and/or symptoms were reported regarding the EENT system. Derm: No signs and/or symptoms reported regarding the dermatologic system. Skin is intact, is healthy with good turgor, Skin is pale. Musculoskeletal: Capillary refill < 3 seconds, Range of motion: limited in left ankle. 08:53 Reassessment: Patient appears in no apparent distress at this time. No changes from kc6 previously documented assessment. Patient and/or family updated on plan of care and expected duration. Pain level reassessed. Patient is alert, oriented x 3, equal unlabored respirations, skin warm/dry/pink. 10:04 Reassessment: Patient appears in no apparent distress at this time. No changes from kc6 previously documented assessment. Patient and/or family updated on plan of care and expected duration. Pain level reassessed. Patient is alert, oriented x 3, equal unlabored respirations, skin warm/dry/pink. Patient states feeling better. Patient states symptoms have improved. Vital Signs: 07:50 BP 134 / 64; Pulse 56; Resp 19 S; Temp 97.6(O); Pulse Ox 95% on R/A; Weight 79.83 kg kc6 (R); Height 5 ft. 3 in. (R); Pain 8/10; 08:18 BP 113 / 62; Pulse 57; Resp 17 S; Pulse Ox 94% on R/A; kc6 09:15 Pulse 54; Resp 17 S; Pulse Ox 100% on R/A; kc6 10:48 BP 113 / 67; Pulse 51; Resp 16 S; Pulse Ox 98% on R/A; kc6 07:50 Body Mass Index 31.18 (79.83 kg, 160.02 cm) kc6 07:50 Pain Scale: Adult kc6 ED Course: 07:33 Patient arrived in ED. mg5 07:36 Ciara Thomas MD is Attending Physician. sd2 07:50 Maame Antoine, DANIEL is Primary Nurse. kc6 07:52 Triage completed. kc6 07:52 Arm band placed on. kc6 07:52 Patient has correct armband on for positive identification. Bed in low position. Call kc6 light in reach. Side rails up X2. Adult w/ patient. cafeteria monitor on. Pulse ox on. NIBP on. Door closed. Noise minimized. Lights dimmed. Pillow given. 08:[address] via stretcher. kc6 08:38 Ptt, Activated Sent. kc6 08:38 PT-INR Sent. kc6 08:38 BNP Sent. kc6 08:38 Troponin High Sensitivity Sent. kc6 08:38 Magnesium Sent. kc6 08:38 CMP Sent. kc6 08:38 CBC with Diff Sent. kc6 08:38 Inserted saline lock: 24 gauge in right hand, using aseptic technique. Blood collected. kc6 Flushed with 10 mL NS. Patient maintains SpO2 saturation greater than 95% on room air. 08:41 CT Head C Spine In Process Unspecified. EDMS 08:51 XRAY Knee RIGHT 3 view In Process Unspecified. EDMS 08:51 XRAY Ankle LEFT 3 view In Process Unspecified. EDMS 10:04 Ice pack to injury. kc6 10:48 Orthoglass splint: Posterior short lleg splint applied on left leg. stirrup splint kc6 applied on left leg. 11:30 No provider procedures requiring assistance completed. IV discontinued, intact, kc6 bleeding controlled, No redness/swelling at site. Pressure dressing applied. Administered Medications: 09:15 Not Given (Other Intervention Used): fentanyl (pf)50 mcg IVP once kc6 09:15 Drug: fentaNYL (PF) IVP 25 mcg IVP once Route: IVP; Site: right hand; kc6 10:03 Follow up: Response: No adverse reaction; Pain is decreased; RASS: Drowsy (-1) kc6 11:24 Not Given (Other Intervention Used): fentanyl (pf)25 mcg IVP once kc6 Medication: 11:31 VIS not applicable for this client. kc6 Outcome: 11:10 Discharge ordered by . [email or web address] 11:30 Discharged to home via wheelchair, with family, kc6 11:30 Condition: good 11:30 Discharge instructions given to patient, family, Instructed on discharge instructions, follow up and referral plans. Demonstrated understanding of instructions, follow-up care, splint care, 11:31 Patient left the ED. kc6 Signatures: Dispatcher [employer] EDCiara Zavala MD MD sd2 Maame Antoine RN RN kc6 Lavonne [place] mg5 Corrections: (The following items were deleted from the chart) 08:18 07:50 BP 134 / 64; Pulse 85bpm; Resp 19bpm; Spontaneous; Pulse Ox 95% RA; Temp 97.6F kc6 Oral; 79.83 kg Reported; Height 5 ft. 3 in. Reported; BMI: 31.1; Pain 8/10, Adult; kc6 08:21 07:52 Pulse ox on. NIBP on. kc6 kc6
[2024-01-06 12:02] VITALS: BP 113/67; O2SAT 98
--- NOTE | 2024-01-07 12:21 | EKG ---
Test Date: 2024-01-06 Test Time: 08:59:19 [employer] Install[employer] Repairer: FAY MEASUREMENT RESULTS: Intervals: Rate: 52 [place]: 256 QRSD: 106 QT: 470 QTc: 437 [place]: P: 81 [place]: 256 QRS: 79 T: 76 INTERPRETIVE STATEMENTS: Sinus bradycardia with 1st degree AV block ST & T wave abnormality, consider anterior ischemia Abnormal ECG Compared to ECG 11/20/2022 15:28:51 Sinus rhythm no longer present ST (T wave) deviation still present Possible ischemia still present Electronically Signed On 01-07-24 12:17:41 CDT by Bakari Gamble
== END 2024-01-06 11:31 | disposition home or self-care (01) ==
LOC: ER 07:30
DX: R55 Syncope and collapse (principal); S82.892A Other fracture of left lower leg, initial encounter for closed fracture; W19.XXXA Unspecified fall, initial encounter; M25.561 Pain in right knee; I48.91 Unspecified atrial fibrillation; I10 Essential (primary) hypertension; J44.9 Chronic obstructive pulmonary disease, unspecified; E78.5 Hyperlipidemia, unspecified; M79.7 Fibromyalgia; K21.9 Gastro-esophageal reflux disease without esophagitis; E03.9 Hypothyroidism, unspecified; G47.00 Insomnia, unspecified; G30.9 Alzheimer's disease, unspecified; F02.80 Dementia in other diseases classified elsewhere, unspecified severity, without behavioral disturbance, psychotic disturbance, mood disturbance, and anxiety; Z88.0 Allergy status to penicillin; Z88.2 Allergy status to sulfonamides; Z88.8 Allergy status to other drugs, medicaments and biological substances; Z91.018 Allergy to other foods
CPT/HCPCS: 93005; 85025; 36415; 83735; 85610; 85730; 84484; 80053; 83880; 70450; 72125; 73562; 73610; 99285; J3010

== ENCOUNTER 2024-01-19 09:59 | Inpatient (IN) | payer OTHER ==
[2024-01-19 13:13] LABS: Absolute Basophils 0.1 K/uL (0-0.5); Absolute Eosinophils 0.2 K/uL (0-0.5); Absolute Lymphocytes (CBC) 2.3 K/uL (0.7-4.9); Absolute Monocytes 0.7 K/uL (0.1-1.3); Absolute Neutrophil 4.9 K/uL (1.8-8.0); Hematocrit 41.9 % (36.0-45.0); Hemoglobin 13.3 g/dL (12.0-15.0); MCH 30.9 pg (27.0-35.0); MCHC 31.8 g/dL (32.0-36.0); MCV 97.2 fL (80-100); MPV 8.2 fL (7.6-11.3); Monocytes % 8.4 % (3.3-12.3); Neutrophils % 59.6 % (41.7-73.7); Platelets 333 thou/uL (152-406); RBC Red Blood Cell Count 4.31 M/uL (3.86-4.86); Red Cell Distribution Width 16.2 % (12.1-15.2)
[2024-01-19] MEDS ORDERED: NA CHLORIDE 0.9% 1,000 ML ONE ×2 (13:24→21:31)
[2024-01-19 13:38] LABS: Specific Gravity 1.016 (1.005-1.030); Urine Bacteria Loaded /HPF (<20); Urine Bilirubin NEGATIVE (Negative); Urine Blood 3+ (OVER) (Negative); Urine Clarity Extremely Turbid (Clear); Urine Color Dark-Brown (Yellow); Urine Culture Reflex Order REFLEXED; Urine Glucose NEGATIVE (Negative); Urine Ketones NEGATIVE (Negative); Urine Microscopic Reflex YN ORDER UMIC; Urine Nitrite NEGATIVE (Negative); Urine Protein 3+ (Negative); Urine RBC >50 /HPF (None Seen); Urine Urobilinogen Normal (Normal); Urine WBC >50 /HPF (<5); Urine WBC Clump Many /HPF (None Seen); Urine pH 6.5 (5.0-7.0)
[2024-01-19 14:10] LABS: Albumin 2.5 g/dL (3.4-5.0); Albumin/Globulin Ratio 0.6 (1.1-1.8); Anion Gap 11.5 mEq/L (5.0-15.0); Bilirubin Total 0.5 mg/dL (0.2-1.0); Potassium 4.5 mEq/L (3.5-5.1); Protein, Total 6.5 g/dL (6.4-8.2)
--- NOTE | 2024-01-19 15:18 | ER ---
Nurse's Notes [facility] Name: Agnes Calabrese Age: 83 yrs Sex: Female : 1940 Arrival Date: 01/19/2024 Time: 09:59 Bed 26 Private MD: Diagnosis: UTI/ Urinary tract infection, site not specified Presentation: 01/18 10:11 Chief complaint: Patient states: received call from hospital saying her urine culture tm6 came back and she needed to come in for IV antibiotics. Patient having burning and frequency, dark urine. Coronavirus screen: Vaccine status: Patient reports receiving the 2nd dose of the covid vaccine. Ebola Screen: Patient negative for fever greater than or equal to 101.5 degrees Fahrenheit, and additional compatible Ebola Virus Disease symptoms Patient denies exposure to infectious person. Patient denies travel to an Ebola-affected area in the 21 days before illness onset. No symptoms or risks identified at this time. Initial Sepsis Screen: Does the patient meet any 2 criteria? Does the patient have a suspected source of infection?. Risk Assessment: Do you want to hurt yourself or someone else? Patient reports no desire to harm self or others. Onset of symptoms is unknown. 10:11 Method Of Arrival: Wheelchair tm6 10:11 Acuity: WARREN 3 tm6 Triage Assessment: 10:14 General: Appears in no apparent distress. Behavior is calm, cooperative. Pain: tm6 Complains of pain in right scapular area, pelvis and anterior aspect of left ankle Pain currently is 7 out of 10 on a pain scale. EENT: No signs and/or symptoms were reported regarding the EENT system. Neuro: Level of Consciousness is awake, alert, obeys commands, Oriented to person, place, time, situation, [place] are. Cardiovascular: Patient's skin is warm and dry. Respiratory: Airway is patent Respiratory effort is even, unlabored, Respiratory pattern is regular, symmetrical. GI: No signs and/or symptoms were reported involving the gastrointestinal system. Abdomen is flat, non-distended. : Reports burning with urination, urinary frequency. Derm: No signs and/or symptoms reported regarding the dermatologic system. Musculoskeletal: Reports pain in right scapular area and anterior aspect of left ankle. Historical: - Allergies: 10:14 clindamycin HCl (bulk); tm6 10:14 Darvocet-N 100; tm6 10:14 PENICILLINS; tm6 10:14 Strawberries; tm6 10:14 Sulfa (Sulfonamide Antibiotics); tm6 - PMHx: 10:14 AFIB; Alzheimer's disease; Alzheimer's disease; angina pectoris; Cancer; Cancer; COPD; tm6 Depression; Fibromyalgia; GERD; Hyperlipidemia; Hypertension; Hypothyroidism; insomnia; left breast cancer; lymphedema; skipped heart beats; - PSHx: 10:14 Appendectomy; bilateral knee replacement; mastectomy; Spinal Fusion; Total abdominal tm6 hysterectomy; - Immunization history:: Client reports receiving the 2nd dose of the Covid vaccine. - Infectious Disease History:: Denies. - Social history:: Smoking status: Patient denies any tobacco usage or history of. Screenin:30 [facility] ED Fall Risk Assessment (Adult) History of falling in the last 3 months, me1 including since admission No falls in past 3 months (0 pts) Confusion or Disorientation No (0 pts) Intoxicated or Sedated No (0 pts) Impaired Gait Yes (1 pt) Mobility Assist Device Used Yes (1 pt) Altered Elimination No (0 pt) Score/Fall Risk Level 0 - 2 = Low Risk Maintained a safe environment, Provided non-skid footwear, Hourly rounding (assess needs \T\ fall precautionary measures) done. Abuse screen: Denies threats or abuse. Nutritional screening: No deficits noted. Tuberculosis screening: No symptoms or risk factors identified. Assessment: 12:30 General: Appears uncomfortable, well groomed, well developed, well nourished, Behavior me1 is calm, cooperative, appropriate for age, Reports received call from hospital saying her urine culture came back and she needed to come in for IV antibiotics. Patient having burning and frequency, dark urine. Pain: Complains of pain in suprapubic area Pain does not radiate. Pain currently is 3 out of 10 on a pain scale. Quality of pain is described as dull, Pain began gradually, Is continuous. Neuro: Level of Consciousness is awake, alert, obeys commands, Oriented to person, place, time, situation, Appropriate for age. Cardiovascular: Patient's skin is warm and dry. Respiratory: Airway is patent Respiratory effort is even, unlabored, Respiratory pattern is regular, symmetrical. GI: No signs and/or symptoms were reported involving the gastrointestinal system. : Reports burning with urination, urinary frequency. EENT: No signs and/or symptoms were reported regarding the EENT system. Derm: Skin is intact, is healthy with good turgor, Skin is pink, warm \T\ dry. Musculoskeletal: Reports pain in anterior aspect of left ankle brace in place from recent injury to ankle. 16:35 General: Verbal ok to use PICC line by Dr Bagley. me1 Vital Signs: 10:11 Pulse 72; Resp 19; Temp 97.1(TE); Pulse Ox 98% ; Weight 79.83 kg; Height 5 ft. 3 in. ; tm6 Pain 7/10; 10:14 BP 106 / 57; MAP 71 mmHg; tm6 12:30 BP 111 / 59; Pulse 57; Resp 16; Pulse Ox 99% ; me1 13:00 BP 105 / 65; Pulse 57; Resp 16; Pulse Ox 99% ; me1 14:00 BP 120 / 56; Pulse 57; Resp 16; Pulse Ox 98% ; me1 15:00 BP 114 / 51; Pulse 56; Resp 16; Pulse Ox 100% on R/A; me1 16:00 BP 115 / 59; Pulse 57; Resp 17; Pulse Ox 98% ; me1 17:00 BP 128 / 59; Pulse 57; Resp 16; Pulse Ox 99% ; me1 18:00 BP 136 / 97; Pulse 68; Resp 16; Pulse Ox 98% ; me1 19:00 BP 113 / 62; Pulse 63; Resp 16; Pulse Ox 94% ; me1 10:11 Body Mass Index 31.18 (79.83 kg, 160.02 cm) tm6 10:11 Pain Scale: Adult tm6 ED Course: 10:01 Patient arrived in ED. im 10:07 Kemi Bagley MD is Attending Physician. gb1 10:13 Triage completed. tm6 10:14 Arm band placed on left wrist. tm6 12:02 Khloe Montgomery, DNAIEL is Primary Nurse. me1 12:30 Patient has correct armband on for positive identification. Bed in low position. Call mi1 light in reach. Side rails up X2. Provided Education on: POC. Verbalized understanding.. 12:30 No provider procedures requiring assistance completed. me1 12:58 Initial lab(s) drawn, by me, sent to lab. Inserted saline lock: 24 gauge in right hand, me1 using aseptic technique. 12:59 CBC with Diff Sent. me1 12:59 CMP Sent. me1 12:59 Lipase Sent. me1 13:00 1300 CM spoke with ER doctor, . Dr. Bagley was contemplating ordering HH and ane IV antibiotics but was awaiting lab results. 1422 CM met with patient, patient's son Paras at the bedside in the ED exam room. Patient identified by name and . Demographic sheet confirmed. Paras states he is the primary caregiver for . They lives together in a single story home. He reports that prior to admission, she had not been ambulating as she usually does with a walker because of a right shoulder surgery as well as an ankle sprain. Prior to her injuries, Ms. Calabrese was able to ambulate with a walker with assistance, and sometimes using a wheelchair. Other DME includes a raised toilet seat, shower chair, merchandising stock associate bars in the bathroom, motorized bed and recliner, and a home oxygen concentrator. Patient does not use oxygen at this time. Ms. Calabrese is receiving outpatient PT but Paras is unsure of the name of the facility. MPOA is in place. The preferred plan is for to receive regain health so that she may be able to continue with PT and return home. CM team will continue to follow and coordinate care during this hospital stay. 13:22 Urinalysis w/ reflexes Sent. me1 13:22 Urine collected: straight cath specimen, cloudy, tea colored, blood tinged. me1 13:29 Client placed on continuous cardiac and pulse oximetry monitoring. NIBP monitoring me1 applied. Pulse ox on. NIBP on. 14:05 Urine Culture Sent. me1 15:18 Melyssa Logan MD is Hospitalizing Provider. gb1 15:29 Accessed PICC line. using ,sterile technique, Clean \T\ dry. Dressing intact. Good blood me1 return. Flushes easily. 15:47 XRAY Chest (1 view) In Process Unspecified. EDMS 16:49 First set of blood cultures drawn by mi. me1 16:53 Lactate w/ 2H reflex if indic. Sent. me1 16:53 Blood Culture Adult (2) Sent. me1 17:04 Second set of blood cultures drawn by mi. me1 18:38 Wade cath inserted, using sterile technique, 18 Fr., by mi, balloon inflated, to me1 gravity drainage. 18:38 returned cloudy urine. Patient tolerated well. me1 Administered Medications: 13:28 Drug: NS 0.9% IV 1000 ml IV at 1 bolus Per protocol; 1000 mL bolus Route: IV; Rate: 1 me1 bolus; Site: right hand; 17:01 Follow up: Response: No adverse reaction; IV Status: Infusion continued; IV Intake: me1 1000ml 17:20 Drug: Meropenem IV 1 grams IV at bolus once; (mix in NS 100 mL) Route: IV; Rate: bolus; me1 Site: right upper arm; 18:06 Follow up: Response: No adverse reaction; IV Status: Completed infusion me1 Medication: 12:30 VIS not applicable for this client. me1 Intake: 17:01 IV: 1000ml; Total: 1000ml. me1 Outcome: 15:18 Decision to Hospitalize by Provider. gb1 01/19 03:24 Patient left the ED. lg3 Signatures: Dispatcher [employer] EDAngelina Conn, RN RN lg3 Shari Sykes Michelle, RN RN me1 Kemi Bagley MD MD gb1 Flora Ontiveros RN RN tm6 Dorcas Raines RN RN ane Corrections: (The following items were deleted from the chart) 01/18 15:53 10:11 Chief complaint: Patient states: received call from hospital saying her urine me1 culture came back and she needed to come in for IV antibiotics. Patient having burning and frequency, dark urine tm6
--- NOTE | 2024-01-19 15:18 | EDPHYS ---
Physician Documentation [facility] Name: Agnes Calabrese Age: 83 yrs Sex: Female : 1940 Arrival Date: 01/19/2024 Time: 09:59 Bed 26 Private MD: ED Physician Kemi Bagley HPI: 01/18 15:19 This 83 yrs old Female presents to ER via Wheelchair with complaints of gb1 Urinary Problem. 15:19 83-year-old female was called back to the ER for positive urine culture that required gb1 IV antibiotics. She recently finished a course of Bactrim and Macrobid. She denies any fever or chills or any nausea vomiting or diarrhea. With history of A-fib, Alzheimer's disease, COPD.. Historical: - Allergies: 10:14 clindamycin HCl (bulk); tm6 10:14 Darvocet-N 100; tm6 10:14 PENICILLINS; tm6 10:14 Strawberries; tm6 10:14 Sulfa (Sulfonamide Antibiotics); tm6 - PMHx: 10:14 AFIB; Alzheimer's disease; Alzheimer's disease; angina pectoris; Cancer; Cancer; COPD; tm6 Depression; Fibromyalgia; GERD; Hyperlipidemia; Hypertension; Hypothyroidism; insomnia; left breast cancer; lymphedema; skipped heart beats; - PSHx: 10:14 Appendectomy; bilateral knee replacement; mastectomy; Spinal Fusion; Total abdominal tm6 hysterectomy; - Immunization history:: Client reports receiving the 2nd dose of the Covid vaccine. - Infectious Disease History:: Denies. - Social history:: Smoking status: Patient denies any tobacco usage or history of. Exam: 15:19 Constitutional: This is a well developed, well nourished patient who is awake, alert, gb1 and in no acute distress. Head/Face: Normocephalic, atraumatic. Eyes: Pupils equal round and reactive to light, extra-ocular motions intact. Lids and lashes normal. Conjunctiva and sclera are non-icteric and not injected. Cornea within normal limits. Periorbital areas with no swelling, redness, or edema. ENT: Nares patent. No nasal discharge, no septal abnormalities noted. Tympanic membranes are normal and external auditory canals are clear. Oropharynx with no redness, swelling, or masses, exudates, or evidence of obstruction, uvula midline. Mucous membranes moist. Neck: Trachea midline, no thyromegaly or masses palpated, and no cervical lymphadenopathy. Supple, full range of motion without nuchal rigidity, or vertebral point tenderness. No Meningismus. Chest/axilla: Normal chest wall appearance and motion. Nontender with no deformity. No lesions are appreciated. Cardiovascular: Regular rate and rhythm with a normal S1 and S2. No gallops, murmurs, or rubs. Normal PMI, no JVD. No pulse deficits. Respiratory: Lungs have equal breath sounds bilaterally, clear to auscultation and percussion. No rales, rhonchi or wheezes noted. No increased work of breathing, no retractions or nasal flaring. Abdomen/GI: Soft, non-tender, with normal bowel sounds. No distension or tympany. No guarding or rebound. No evidence of tenderness throughout. Back: No spinal tenderness. No costovertebral tenderness. Full range of motion. Skin: Warm, dry with normal turgor. Normal color with no rashes, no lesions, and no evidence of cellulitis. MS/ Extremity: Pulses equal, no cyanosis. Neurovascular intact. Full, normal range of motion. Neuro: Awake and alert, GCS 15, oriented to person, place, time, and situation. Cranial nerves II-XII grossly intact. Motor strength 5/5 in all extremities. Sensory grossly intact. Cerebellar exam normal. Normal gait. Vital Signs: 10:11 Pulse 72; Resp 19; Temp 97.1(TE); Pulse Ox 98% ; Weight 79.83 kg; Height 5 ft. 3 in. ; tm6 Pain 7/10; 10:14 BP 106 / 57; MAP 71 mmHg; tm6 12:30 BP 111 / 59; Pulse 57; Resp 16; Pulse Ox 99% ; me1 13:00 BP 105 / 65; Pulse 57; Resp 16; Pulse Ox 99% ; me1 14:00 BP 120 / 56; Pulse 57; Resp 16; Pulse Ox 98% ; me1 15:00 BP 114 / 51; Pulse 56; Resp 16; Pulse Ox 100% on R/A; me1 16:00 BP 115 / 59; Pulse 57; Resp 17; Pulse Ox 98% ; me1 17:00 BP 128 / 59; Pulse 57; Resp 16; Pulse Ox 99% ; me1 18:00 BP 136 / 97; Pulse 68; Resp 16; Pulse Ox 98% ; me1 19:00 BP 113 / 62; Pulse 63; Resp 16; Pulse Ox 94% ; me1 10:11 Body Mass Index 31.18 (79.83 kg, 160.02 cm) tm6 10:11 Pain Scale: Adult tm6 MDM: 10:30 Patient medically screened. gb1 15:19 Differential diagnosis: nonspecific abdominal pain, urinary tract infection. Data 1 reviewed: vital signs, nurses notes, old medical records, I reviewed the patient's last urine culture from November 2023 lab test result(s). ED course: 83 years old female with history of recurrent urinary tract infections is here for multidrug-resistant ESBL. I have admitted her to the hospital and arranged for PICC line placement for home health IV antibiotic medications as well as to establish IV access here. I have admitted the patient to the hospitalist. At this time she does not appear septic and will receive tailor antibiotic therapy. She is afebrile and otherwise able to tolerate liquids.. 01/18 10:49 Order name: CBC with Diff; Complete Time: 14:14 banner 01/18 10:49 Order name: CMP; Complete Time: 14:14 1 01/18 10:49 Order name: Lipase; Complete Time: 14:14 banner 01/18 10:49 Order name: Urinalysis w/ reflexes; Complete Time: 14:14 1 01/18 13:43 Order name: Urine Culture EDIL 01/18 14:17 Order name: Blood Culture Adult (2) banner 01/18 14:18 Order name: Lactate w/ 2H reflex if indic.; Complete Time: 18:49 1 01/18 17:24 Order name: CBC with Automated Diff EDMS 01/18 17:24 Order name: CBC with Automated Diff EDMS 01/18 17:24 Order name: Comprehensive Metabolic Panel EDMS 01/18 17:24 Order name: Comprehensive Metabolic Panel EDIL 01/18 15:33 Order name: XRAY Chest (1 view); Complete Time: 18:49 [facility] 01/18 10:49 Order name: IV Saline Lock; Complete Time: 12:59 gb1 01/18 10:49 Order name: Labs collected and sent; Complete Time: 12:59 gb1 Administered Medications: 13:28 Drug: NS 0.9% IV 1000 ml IV at 1 bolus Per protocol; 1000 mL bolus Route: IV; Rate: 1 me1 bolus; Site: right hand; 17:01 Follow up: Response: No adverse reaction; IV Status: Infusion continued; IV Intake: me1 1000ml 17:20 Drug: Meropenem IV 1 grams IV at bolus once; (mix in NS 100 mL) Route: IV; Rate: bolus; me1 Site: right upper arm; 18:06 Follow up: Response: No adverse reaction; IV Status: Completed infusion me1 Disposition Summary: 01/19/24 15:18 Hospitalization Ordered Notes: Hospitalization Status: Inpatient Admission gb1 Provider: Melyssa Logan Location: Telemetry/MedSurg (observation) gb1 Condition: Stable gb1 Problem: chronic gb1 Symptoms: have worsened gb1 Bed/Room Type: Standard banner Room Assignment: [id number](01/20/24 02:06) lg3 Diagnosis - UTI/ Urinary tract infection, site not specified banner Forms: - Medication Reconciliation Form gb1 - SBAR form 1 - Leadership Thank You Letter gb1 Signatures: Dispatcher [employer] EDAngelina Conn RN RN lg3 Khloe Montgomery RN RN me1 Kemi Bagley MD MD gb1 Rafaela Bhatt [facility] Flora Ontiveros RN RN tm6 Corrections: (The following items were deleted from the chart) 10:50 10:49 CBC+H.LAB.BRZ ordered. EDMS EDMS 10:50 10:49 COMPREHENSIVE METABOLIC PANEL+C.LAB.BRZ ordered. EDMS EDMS 10:50 10:49 LIPASE+C.LAB.BRZ ordered. EDMS EDMS 10:50 10:49 Urinalysis+U.LAB.BRZ ordered. EDMS EDMS 23:58 15:18 gb1 kmf 01/19 02:06 01/18 23:58 407 kmf lg3
--- NOTE | 2024-01-19 17:01 | RAD REPORT ---
EXAMINATION: ONE VIEW CHEST XR CLINICAL INDICATION: Female, 83 years old.,picc line placement TECHNIQUE: Frontal chest projection is submitted. Examination is limited by patient positioning and t echnique. COMPARISON: 01/12/2024 FINDINGS: Right arm PICC with tip terminating at the superior cavoatrial junction. The lungs are well inflated and clear. No pneumothorax or sizable effusion. The heart is normal in size. IMPRESSION: Satisfactory positioning of right arm PICC.
[2024-01-19] MEDS ORDERED: Meropenem 1000 MG/VIAL IV ONE ×2 (17:02→17:10)
[2024-01-19] MEDS ORDERED: NA CHLORIDE 0.9% 0 ML ONE (17:03)
[2024-01-19] MEDS ORDERED: NA CHLORIDE 0.9% 100 ML ONE (17:10)
[2024-01-19] MEDS ORDERED: ONDANSETRON 4 MG/2 ML VIAL IV PRN ×2 (17:13→17:37)
[2024-01-19] MEDS ORDERED: ACETAMINOPHEN 500 MG TAB PO PRN ×2 (17:13→17:37)
[2024-01-19] MEDS ORDERED: MORPHINE 2 MG/ML SYR IV PRN (17:13)
--- NOTE | 2024-01-19 17:46 | P.HP ---
Certification for Inpatient Patient admitted to: Inpatient With expected LOS: >2 Midnights Patient will require the following post-hospital care: Home Health Services Practitioner: I am a practitioner with admitting privileges, knowledge of patient current condition, hospital course, and medical plan of care. Services: Services provided to patient in accordance with Admission requirements found in Title 42 Section 412.3 of the Code of Federal Regulations <Melyssa Logan - Last Filed: 01/20/24 17:59> Patient History Reason for admission: Acute cystitis, failed outpatient treatment History of Present Illness: 83-year-old female with a past medical history AFIB; Alzheimer's disease; Alzheimer's disease; angina pectoris; Cancer; Cancer; COPD; Depression; Fibromyalgia; GERD; Hyperlipidemia; Hypertension; Hypothyroidism; insomnia; left breast cancer; lymphedema; skipped heart beats; presents to the emergency room with failed outpatient treatment of p.o. antibiotics. She denies fever, chills, nausea vomiting diarrhea. Plan to admit for acute cystitis, <Diann Hernandez - Last Filed: 01/20/24 15:37> Date of Service: 01/19/24 History of Present Illness: patient is an 83-year-old female with a past medical history of atrial fibrillation, Alzheimer's disease, CAD, COPD, Depression, Fibromyalgia, GERD, metabolic syndrome, and breast cancer, presents to the emergency room with failed outpatient treatment of p.o. antibiotics. She denies fever, chills, nausea & vomiting diarrhea. Patient has been living at home and she has been getting recurring infections. She has been confused and has been getting weaker. She decided to go into the ER for further evaluation. - Past Medical/Surgical History Diabetic: No -: Lymphedema -: Afib -: L breast cancer -: PE -: Meniere's Disease -: Former smoker -: Recurrent UTIs -: Fibromyalgia -: GERD -: Insomnia -: Depression -: Neuropathy -: s/p Left Mastectomy -: PATIENCE TKA -: Cervical fusion -: Lumbar fusion -: Appendectomy -: Hysterectomy Psychosocial/ Personal History: Patient lives in an assisted living facility- [facility] - Family History Father Medical History: Diabetes Notes: heart attack. alcoholic - Social History Alcohol use: No CD- Drugs: No Caffeine use: No <Melyssa Logan - Last Filed: 01/20/24 17:59> Allergies clindamycin HCl [From Cleocin] Allergy (Severe, Verified 11/20/22 22:05) Hives/Rash clindamycin palmitate HCl [From Cleocin] Allergy (Severe, Verified 11/20/22 22:05) Hives/Rash clindamycin phosphate [From Cleocin] Allergy (Severe, Verified 11/20/22 22:05) Hives/Rash Penicillins Allergy (Severe, Verified 11/20/22 22:05) Hives/Rash Sulfa (Sulfonamide Antibiotics) [Sulfa(Sulfonamide Antibiotics)] Allergy (Severe, Verified 11/20/22 22:05) Hives/Rash propoxyphene [From Darvocet-N 100] Allergy (Verified 11/20/22 22:05) Unknown strawberries Allergy (Severe, Uncoded 07/11/20 05:19) Hives/Rash Home Medications: Albuterol Sulfate [Proair Respiclick] 2 puff IH Q6HP PRN 06/11/21 Apixaban [Eliquis] 5 mg PO BID 06/11/21 Cyanocobalamin (Vitamin B-12) [Vitamin B12] 1,000 mcg PO DAILY 06/11/21 Duloxetine HCl 60 mg PO BID 06/11/21 Estradiol 0.01% Cream 1 appl VAG SEECOM 06/11/21 Flecainide Acetate 50 mg PO BID 06/11/21 Gabapentin 300 mg PO BEDTIME 06/11/21 Levothyroxine [Synthroid*] 0.075 mcg PO [id number] 06/11/21 Memantine HCl 10 mg PO BID 06/11/21 Montelukast [Singulair*] 10 mg PO DAILY 06/11/21 Pantoprazole [Protonix Tab*] 40 mg PO DAILY 06/11/21 Potassium Chloride 20 meq PO BID 06/11/21 Simvastatin 40 mg PO BEDTIME 06/11/21 Topiramate 100 mg PO BID 06/11/21 buPROPion HCL [Bupropion Xl] 300 mg PO DAILY 06/11/21 cycloSPORINE [Restasis] 1 drop EACH EYE TID 06/11/21 Pataday 0.7% Drops 1 drop OPTH DAILY 12/31/21 Propylene Glycol/Peg 400 [Lubricating Eye Drop] 1 drop OPTH BID 12/31/21 Cranberry Fruit Extract [Ellura] 500 mg PO DAILY 02/11/22 Cephalexin [Keflex] 500 mg PO Q6HR 7 Days #28 cap 02/13/22 Hydrocodone Bit/Acetaminophen [Hydrocodon-Acetaminophen 5-325] 5 - 325 mg PO BID 11/20/22 Metoprolol Succinate [Toprol Xl*] 12.5 mg PO BEDTIME 11/20/22 Temazepam [Restoril] 7.5 mg PO BEDTIME 11/20/22 Review of Systems 10-point ROS is otherwise unremarkable <Diann Hernandez - Last Filed: 01/20/24 15:37> 10-point ROS is otherwise unremarkable <Melyssa Logan - Last Filed: 01/20/24 17:59> Physical Examination - Physical Exam General: Alert, In no apparent distress, Oriented x3 HEENT: Atraumatic, Normocephalic Neck: Supple, JVD not distended Respiratory: Clear to auscultation bilaterally, Normal air movement Cardiovascular: Normal pulses, Regular rate/rhythm Capillary refill: <2 Seconds Gastrointestinal: Normal bowel sounds, Soft and benign, Other (Suprapubic tenderness) Musculoskeletal: No clubbing, No swelling Integumentary: No rashes, No breakdown Neurological: Normal speech, Normal strength at 5/5 x4 extr <Diann Hernandez - Last Filed: 01/20/24 15:37> - Vital Signs Temperature: 98 F Blood Pressure: 140/80 Pulse: 80 Respirations: 18 Pulse Ox (%): 95 - Physical Exam General: Alert, In no apparent distress, Confused HEENT: Atraumatic, PERRLA, Mucous membr. moist/pink, EOMI, Sclerae nonicteric Neck: Supple, 2+ carotid pulse no bruit, No LAD, Without JVD or thyroid abnormality Respiratory: Clear to auscultation bilaterally, Normal air movement Cardiovascular: Regular rate/rhythm, Normal S1 S2 Gastrointestinal: Normal bowel sounds, No tenderness Musculoskeletal: No tenderness Integumentary: No rashes Neurological: Normal gait, Normal speech, Normal strength at 5/5 x4 extr, Normal tone, Normal affect Lymphatics: No axilla or inguinal lymphadenopathy - Studies Laboratory Data (last 24 hrs) 01/19/24 01/19/24 12:56 12:56 WBC 8.20 Hgb 13.3 Hct 41.9 Plt Count 333 Sodium 139 Potassium 4.5 BUN 19 H Creatinine 1.11 H Glucose 121 H Total Bilirubin 0.5 AST 22 ALT 19 Alkaline Phosphatase 125 H Lipase 19 <Melyssa Logan - Last Filed: 01/20/24 17:59> Assessment & Plan - Plan Assessment plan Acute cystitis, failed outpatient treatment IV antibiotics. Culture gram-negative rods, IV fluids, IV antibiotics. As needed analgesics, Plan to discharge home with IV antibiotics IV Invanz, 1 g daily Initially was treated with IV Wade catheter, Blood cultures, urine cultures Plan to discharge home with home health with IV antibiotics, Invanz 1 g daily for 14 days Transaminitis Trend liver enzymes Acute kidney injury, likely secondary to prerenal, Treated with IV fluids, trend kidney function, Full code DVT SCDs Diet cardiac Time with patient 55 minutes Discharge Plan: Half-Way - Code Status/Comfort Care Code Status: Full Code Critical Care: No Time Spent Managing PTS Care (In Minutes): 55 <Diann Hernandez - Last Filed: 01/20/24 15:37> - Plan Assessment/Plan -Acute cystitis, MDR, failed outpatient treatment IV antibiotics. Culture gram-negative rods, IV fluids, IV antibiotics. As needed analgesics, Plan to discharge home with IV antibiotics & IV Invanz 1 g daily Initially was treated with IV Wade catheter -Acute kidney injury, likely secondary to prerenal, Treated with IV fluids Trend kidney function, - - Advance Directives Does patient have a Living Will: No Does patient have a Durable POA for Healthcare: Yes <Melyssa Logan - Last Filed: 01/20/24 17:59>
[2024-01-19] MEDS ORDERED: NA CHLORIDE 0.9% 1,000 ML IV SCH (18:00)
[2024-01-19] MEDS: NA CHLORIDE 0.9% 1,000 ML IV SCH (18:00)
[2024-01-19] MEDS ORDERED: MORPHINE 2 MG/ML SYR ONE (18:09)
[2024-01-19] MEDS: MORPHINE 2 MG/ML SYR IV PRN (18:11)
[2024-01-19] MEDS: HYDROMORPHONE HCL 1 MG/ML INJ IV ONE (19:14)
[2024-01-19] MEDS ORDERED: HYDROMORPHONE HCL 1 MG/ML INJ ONE (19:17)
[2024-01-19] MEDS: Mupirocin NASAL 2 APPL/1 GM TUBE NAS SCH (21:00)
[2024-01-19] MEDS ORDERED: APIXABAN 5 MG TABLET PO SCH (21:00)
[2024-01-19] MEDS ORDERED: TOPIRAMATE 100 MG TAB PO SCH (21:00)
[2024-01-19] MEDS: FLECAINIDE 100 MG TAB PO SCH (21:00)
[2024-01-19] MEDS: DULOXETINE 30 MG CAP PO SCH (21:00)
[2024-01-19] MEDS ORDERED: HOME MED 1 EA UNK (Flecainide Acetate [Flecainide Acetate] 50 MG Tablet) PO SCH (21:00)
[2024-01-19] MEDS ORDERED: HOME MED 1 EA UNK (Duloxetine Hcl [Duloxetine Hcl] 60 MG Capsule.Dr) PO SCH (21:00)
[2024-01-19] MEDS: Meropenem 1,000 MG in NA CHLORIDE 0.9% 100 ML IV SCH (21:00)
[2024-01-19] MEDS: METOPROLOL XL 25 MG TAB PO SCH (21:00)
[2024-01-19] MEDS ORDERED: DULOXETINE 30 MG CAP PO ONE (21:30)
[2024-01-19] MEDS ORDERED: Mupirocin NASAL 2 APPL/1 GM TUBE NAS ONE (21:31)
[2024-01-19 22:31] VITALS: BMI 31.1
[2024-01-20] MEDS ORDERED: HYDRALAZINE HCL 20 MG/ML VIAL IV PRN (01:30)
[2024-01-20] MEDS: LEVOTHYROXINE SOD 0.1 MG TAB PO SCH (05:30)
[2024-01-20] MEDS ORDERED: LEVOTHYROXINE SOD 0.075 MG TAB PO SCH (06:00)
[2024-01-20 06:05] LABS: Absolute Eosinophils 0.1 K/uL (0-0.5); Absolute Lymphocytes (CBC) 1.6 K/uL (0.7-4.9); Absolute Monocytes 0.5 K/uL (0.1-1.3); Absolute Neutrophil 4.4 K/uL (1.8-8.0); Basophils % 0.6 % (0-1.3); Eosinophils % 2.1 % (0-4.4); Hematocrit 34.6 % (36.0-45.0); Hemoglobin 11.3 g/dL (12.0-15.0); Lymphocytes % 23.8 % (15.3-44.8); MCH 31.6 pg (27.0-35.0); MCHC 32.5 g/dL (32.0-36.0); MCV 97.3 fL (80-100); MPV 8.2 fL (7.6-11.3); Monocytes % 8.1 % (3.3-12.3); Neutrophils % 65.4 % (41.7-73.7); Platelets 266 thou/uL (152-406); RBC Red Blood Cell Count 3.56 M/uL (3.86-4.86); Red Cell Distribution Width 15.6 % (12.1-15.2)
[2024-01-20 06:08] LABS: PT Prothrombin Time 14.2 SECONDS (9.4-12.5); PTT, Activated Partial Thromb 33.6 SECONDS (24.3-36.9); Protime INR 1.28
[2024-01-20 06:20] LABS: Albumin/Globulin Ratio 0.6 (1.1-1.8); Anion Gap 6.6 mEq/L (5.0-15.0); Bilirubin Total 0.5 mg/dL (0.2-1.0); Globulin 3.2 g/dL (2.3-3.5); Potassium 3.6 mEq/L (3.5-5.1); Protein, Total 5.2 g/dL (6.4-8.2); Troponin High Sensitivity 9.9 pg/mL (<58.9)
--- NOTE | 2024-01-20 08:31 | P.PN ---
Date of Service: 01/21/24 Subjective Admitted with UTI, failed outpatient treatment antibiotics Review of Systems 10 point system review of negative unless listed in HPI Physical Examination - Vital Signs Reviewed Assessment And Plan - Plan - Physical Exam General: Alert, In no apparent distress, Oriented x3 HEENT: Atraumatic, PERRLA, Mucous membr. moist/pink, EOMI, Sclerae nonicteric Neck: Supple, JVD not distended Respiratory: Clear to auscultation bilaterally, Normal air movement Cardiovascular: No edema, Regular rate/rhythm, Normal S1 S2, No gallops, No rubs, No murmurs Gastrointestinal: Normal bowel sounds, Soft and benign, Non-distended, No tenderness, No rebound, No guarding Musculoskeletal: No clubbing Integumentary: No rashes Neurological: Normal speech, Cranial nerves 3-12 intact, Normal affect Assessment and Plan - Plan Acute cystitis Failed outpatient treatment antibiotics 01/11 ESBL, E. coli of the urine Treated with Bactrim, Macrobid, Started on IV meropenem Will need IV antibiotics x 14 days, Merrem impairment discharge Transaminitis Trend liver function Atrial fibrillation COPD COPD GERD HTN Hypothyroidism Resume appropriate home meds DVT PPX: Lovenox-start anticoagulation if on at home. Code status:Full Discharge Plan: Home Plan to discharge in: 24 Hours - Advance Directives Does patient have a Living Will: No Does patient have a Durable POA for Healthcare: Yes - Code Status/Comfort Care Code Status Assessed: Yes (Full code) Critical Care: No Time Spent Managing Pts Care (In Minutes): 35
[2024-01-20] MEDS ORDERED: Meropenem 1,000 MG in NA CHLORIDE 0.9% 100 ML IV SCH (09:00)
[2024-01-20] MEDS: Meropenem 1,000 MG in NA CHLORIDE 0.9% 100 ML IV SCH (09:52)
--- NOTE | 2024-01-20 15:47 | P.DS ---
Admission Date: 01/19/24 Discharge Date: 01/21/24 Reason for Admission: Acute cystitis, failed outpatient treatment Brief History of Present Illness: 83-year-old female with a past medical history AFIB; Alzheimer's disease; Alzheimer's disease; angina pectoris; Cancer; Cancer; COPD; Depression; Fibromyalgia; GERD; Hyperlipidemia; Hypertension; Hypothyroidism; insomnia; left breast cancer; lymphedema; skipped heart beats; presents to the emergency room with failed outpatient treatment of p.o. antibiotics. She denies fever, chills, nausea vomiting diarrhea. Plan to admit for acute cystitis, - Physical Exam General: Alert, In no apparent distress, Oriented x3 HEENT: Atraumatic, Normocephalic Neck: Supple, JVD not distended Respiratory: Clear to auscultation bilaterally, Normal air movement Cardiovascular: Normal pulses, Regular rate/rhythm Capillary refill: <2 Seconds Gastrointestinal: Normal bowel sounds, Soft and benign, Other (Suprapubic tenderness) Musculoskeletal: No clubbing, No swelling Integumentary: No rashes, No breakdown Neurological: Normal speech, Normal strength at 5/5 x4 extr Hospital Course: 83-year-old female with a past medical history AFIB; Alzheimer's disease; Alzheimer's disease; angina pectoris; Cancer; Cancer; COPD; Depression; Fibromyalgia; GERD; Hyperlipidemia; Hypertension; Hypothyroidism; insomnia; left breast cancer; lymphedema; skipped heart beats; presents to the emergency room with failed outpatient treatment of p.o. antibiotics. She denies fever, chills, nausea vomiting diarrhea. She was treated for acute cystitis, tolerating diet, stable to discharge home with home health care with IV antibiotics, follow-up with PCP in 1 week Assessment Metabolic encephalopathy from sepsis, acute cystitis, fall precautions Acute cystitis discharged home on IV antibiotics with home health, family teach prior to discharge Failed outpatient treatment of antibiotics Plan to discharge home with home health care with Invanz 1 g daily for 14 days Weekly CBC, CMP, mag PCP to monitor weekly labs Continue home medicines as previously prescribed GOAL: Clear understanding of disease process INSTRUCTIONS: Physician Discharge Instructions: -Follow-up with PCP in 1 to 2 weeks -Please call Dr. Logan at [phone] if any questions regarding hospital stay -Please call nursing station at [phone] if any nursing or medication questions -Return to the emergency room if symptoms worsen Diet: ADA, low sodium Activity: Fall precautions <Diann Hernandez - Last Filed: 01/24/24 05:44> Admission Date: 01/19/24 Discharge Date: 01/21/24 Hospital Course: Patient was seen and examined. Events of the last 24 hours have been noted. Spoke with with [facility] regarding patient's clinical picture after evaluating and examining the patient independently. I performed a substantial part of the MDM during this patient's care today. I personally made or approved the documented management plan and acknowledge its risk of complications. I agree with the findings and documentation provided in the [facility]'s notes. <Melyssa Logan - Last Filed: 01/25/24 00:10> Disposition: DC HOME/HOME HEALTH CARE Vital Signs/Physical Exam: Temp Pulse Resp BP Pulse Ox 98.3 F 59 16 97/53 L 100 01/20/24 12:00 01/20/24 12:00 01/20/24 12:00 01/20/24 12:00 01/20/24 12:00 Laboratory Data at Discharge: WBC 6.80 thou/uL (4.3-10.9) 01/20/24 05:00 Hgb 11.3 g/dL (12.0-15.0) L D 01/20/24 05:00 Hct 34.6 % (36.0-45.0) L 01/20/24 05:00 Plt Count 266 thou/uL (152-406) 01/20/24 05:00 PT 14.2 SECONDS (9.4-12.5) H 01/20/24 05:00 INR 1.28 01/20/24 05:00 APTT 33.6 SECONDS (24.3-36.9) 01/20/24 05:00 Sodium 140 mEq/L (136-145) 01/20/24 05:00 Potassium 3.6 mEq/L (3.5-5.1) D 01/20/24 05:00 BUN 14 mg/dL (7-18) 01/20/24 05:00 Creatinine 0.63 mg/dL (0.55-1.02) 01/20/24 05:00 Glucose 89 mg/dL (74-106) 01/20/24 05:00 Total Bilirubin 0.5 mg/dL (0.2-1.0) 01/20/24 05:00 AST 265 U/L (15-37) H 01/20/24 05:00 ALT 118 U/L (13-56) H 01/20/24 05:00 Alkaline Phosphatase 214 U/L (45-117) H D 01/20/24 05:00 Lipase 19 U/L (13-75) 01/19/24 12:56 <Diann Hernandez - Last Filed: 01/24/24 05:44> Vital Signs/Physical Exam: Temp Pulse Resp BP Pulse Ox 96.9 F 65 17 138/65 97 01/21/24 16:00 01/21/24 16:00 01/21/24 16:00 01/21/24 16:00 01/21/24 16:00 General: Alert, In no apparent distress, Oriented x3 Laboratory Data at Discharge: WBC 6.10 thou/uL (4.3-10.9) 01/21/24 04:37 Hgb 10.5 g/dL (12.0-15.0) L 01/21/24 04:37 Hct 33.0 % (36.0-45.0) L 01/21/24 04:37 Plt Count 253 thou/uL (152-406) 01/21/24 04:37 PT 13.0 SECONDS (9.4-12.5) H 01/21/24 04:37 INR 1.17 01/21/24 04:37 APTT 34.9 SECONDS (24.3-36.9) 01/21/24 04:37 Sodium 142 mEq/L (136-145) 01/21/24 04:37 Potassium 3.8 mEq/L (3.5-5.1) 01/21/24 04:37 BUN 10 mg/dL (7-18) 01/21/24 04:37 Creatinine 0.57 mg/dL (0.55-1.02) 01/21/24 04:37 Glucose 76 mg/dL (74-106) 01/21/24 04:37 Magnesium 1.8 mg/dL (1.6-2.4) 01/21/24 04:37 Total Bilirubin 0.5 mg/dL (0.2-1.0) 01/21/24 04:37 AST 97 U/L (15-37) H 01/21/24 04:37 ALT 71 U/L (13-56) H 01/21/24 04:37 Alkaline Phosphatase 181 U/L (45-117) H 01/21/24 04:37 Lipase 19 U/L (13-75) 01/19/24 12:56 <Melyssa Logan - Last Filed: 01/25/24 00:10> Diet: AHA Activity: Fall precautions Time spent managing pt's care (in minutes): 55 <Diann Hernandez - Last Filed: 01/24/24 05:44> <Melyssa Logan - Last Filed: 01/25/24 00:10> Home Medications: Albuterol Sulfate [Proair Respiclick] 2 puff IH Q6HP PRN 06/11/21 Apixaban [Eliquis] 5 mg PO BID 06/11/21 Cyanocobalamin (Vitamin B-12) [Vitamin B12] 1,000 mcg PO DAILY 06/11/21 Duloxetine HCl 60 mg PO BID 06/11/21 Estradiol 0.01% Cream 1 appl VAG SEECOM 06/11/21 Flecainide Acetate 50 mg PO BID 06/11/21 Gabapentin 300 mg PO BEDTIME 06/11/21 Levothyroxine [Synthroid*] 0.075 mcg PO [id number] 06/11/21 Memantine HCl 10 mg PO BID 06/11/21 Montelukast [Singulair*] 10 mg PO DAILY 06/11/21 Pantoprazole [Protonix Tab*] 40 mg PO DAILY 06/11/21 Potassium Chloride 20 meq PO BID 06/11/21 Simvastatin 40 mg PO BEDTIME 06/11/21 Topiramate 100 mg PO BID 06/11/21 buPROPion HCL [Bupropion Xl] 300 mg PO DAILY 06/11/21 cycloSPORINE [Restasis] 1 drop EACH EYE TID 06/11/21 Pataday 0.7% Drops 1 drop OPTH DAILY 12/31/21 Propylene Glycol/Peg 400 [Lubricating Eye Drop] 1 drop OPTH BID 12/31/21 Cranberry Fruit Extract [Ellura] 500 mg PO DAILY 02/11/22 Hydrocodone Bit/Acetaminophen [Hydrocodon-Acetaminophen 5-325] 5 - 325 mg PO BID 11/20/22 Metoprolol Succinate [Toprol Xl*] 12.5 mg PO BEDTIME 11/20/22 Physician Discharge Instructions: 83-year-old female with a past medical history AFIB; Alzheimer's disease; Alzheimer's disease; angina pectoris; Cancer; Cancer; COPD; Depression; Fibromyalgia; GERD; Hyperlipidemia; Hypertension; Hypothyroidism; insomnia; left breast cancer; lymphedema; skipped heart beats; presents to the emergency room with failed outpatient treatment of p.o. antibiotics. She denies fever, chills, nausea vomiting diarrhea. She was treated for acute cystitis, tolerating diet, stable to discharge home with home health care with IV antibiotics, follow-up with PCP in 1 week Assessment Metabolic encephalopathy from sepsis, acute cystitis, fall precautions Acute cystitis-Plan to discharge home with home health care with Invanz 1 g daily for 14 days Failed outpatient treatment of antibiotics Plan to discharge home with home health care with Invanz 1 g daily for 14 days Weekly CBC, CMP, mag PCP to monitor weekly labs Continue home medicines as previously prescribed GOAL: Clear understanding of disease process INSTRUCTIONS: Physician Discharge Instructions: -Follow-up with PCP in 1 to 2 weeks -Please call Dr. Logan at [phone] if any questions regarding hospital stay -Please call nursing station at [phone] if any nursing or medication questions -Return to the emergency room if symptoms worsen Diet: ADA, low sodium Activity: Fall precautions Followup: Anayeli Capellan [Primary Care Provider] - 1-2 Weeks
[2024-01-20] MEDS: HYDROCODONE/APAP 5/325 MG TAB PO PRN (17:17)
--- NOTE | 2024-01-21 03:32 | P.PN ---
Date of Service: 01/20/24 Subjective Admitted with UTI, failed outpatient treatment antibiotics Review of Systems 10 point system review of negative unless listed in HPI Physical Examination - Vital Signs Reviewed Assessment And Plan - Plan - Physical Exam General: Alert, In no apparent distress, Oriented x3 HEENT: Atraumatic, PERRLA, Mucous membr. moist/pink, EOMI, Sclerae nonicteric Neck: Supple, JVD not distended Respiratory: Clear to auscultation bilaterally, Normal air movement Cardiovascular: No edema, Regular rate/rhythm, Normal S1 S2, No gallops, No rubs, No murmurs Gastrointestinal: Normal bowel sounds, Soft and benign, Non-distended, No tenderness, No rebound, No guarding Musculoskeletal: No clubbing Integumentary: No rashes Neurological: Normal speech, Cranial nerves 3-12 intact, Normal affect Assessment and Plan - Plan Acute cystitis Failed outpatient treatment antibiotics 01/11 ESBL, E. coli of the urine Treated with Bactrim, Macrobid, Started on IV meropenem Will need IV antibiotics x 14 days, Merrem impairment discharge Metabolic encephalopathy from sepsis, from acute cystitis, fall precautions Transaminitis Trend liver function Atrial fibrillation COPD COPD GERD HTN Hypothyroidism Resume appropriate home meds DVT PPX: Lovenox-start anticoagulation if on at home. Code status:Full Discharge Plan: Home Plan to discharge in: 24 Hours - Advance Directives Does patient have a Living Will: No Does patient have a Durable POA for Healthcare: Yes - Code Status/Comfort Care Code Status Assessed: Yes (Full code) Critical Care: No Time Spent Managing Pts Care (In Minutes): 35 <Diann Hernandez - Last Filed: 01/24/24 05:48> Patient was seen and examined. Events of the last 24 hours have been noted. Spoke with with [facility] regarding patient's clinical picture after evaluating and examining the patient independently. I performed a substantial part of the MDM during this patient's care today. I personally made or approved the documented management plan and acknowledge its risk of complications. I agree with the findings and documentation provided in the [facility]'s notes. <Melyssa Logan - Last Filed: 01/25/24 00:09>
[2024-01-21 04:51] LABS: Absolute Eosinophils 0.2 K/uL (0-0.5); Absolute Monocytes 0.6 K/uL (0.1-1.3); Absolute Neutrophil 3.3 K/uL (1.8-8.0); Basophils % 0.7 % (0-1.3); Hemoglobin 10.5 g/dL (12.0-15.0); Lymphocytes % 33.2 % (15.3-44.8); MCHC 31.9 g/dL (32.0-36.0); MCV 97.2 fL (80-100); MPV 7.7 fL (7.6-11.3); Monocytes % 9.6 % (3.3-12.3); Neutrophils % 53.5 % (41.7-73.7); Platelets 253 thou/uL (152-406); Red Cell Distribution Width 15.9 % (12.1-15.2)
[2024-01-21 04:57] LABS: PTT, Activated Partial Thromb 34.9 SECONDS (24.3-36.9); Protime INR 1.17
[2024-01-21 05:13] LABS: Albumin/Globulin Ratio 0.6 (1.1-1.8); Anion Gap 6.8 mEq/L (5.0-15.0); Bilirubin Total 0.5 mg/dL (0.2-1.0); Globulin 3.1 g/dL (2.3-3.5); Magnesium 1.8 mg/dL (1.6-2.4); Potassium 3.8 mEq/L (3.5-5.1); Protein, Total 5.1 g/dL (6.4-8.2)
[2024-01-21 10:31] VITALS: O2SAT 96
[2024-01-21] MEDS ORDERED: ERTAPENEM SODIUM 1 GM VIAL IVPB ONE (14:33)
[2024-01-21] MEDS ORDERED: ERTAPENEM NA 1 GM in NA CHLORIDE 0.9% 50 ML IVPB SCH (15:00)
[2024-01-21] MEDS: ERTAPENEM NA 1 GM in NA CHLORIDE 0.9% 100 ML IVPB SCH (15:03)
[2024-01-21 16:40] VITALS: BP 138/65; TEMP 96.9
== END 2024-01-21 19:45 | disposition home health service (06) | DRG 871 ==
LOC: ER 09:59 → ERHOLD 17:13 → 2ND 01-20 02:09
PROVIDERS: ADMIT Hospitalist; ATTEND Hospitalist
PROC: 02HV33Z Insertion of Infusion Device into Superior Vena Cava, Percutaneous Approach (ICD-10-PCS; principal; 2024-01-19)
PROC: 0T9B70Z Drainage of Bladder with Drainage Device, Via Natural or Artificial Opening (ICD-10-PCS; 2024-01-19)
DX: A41.51 Sepsis due to Escherichia coli [E. coli] (principal); G93.41 Metabolic encephalopathy; N30.00 Acute cystitis without hematuria; Z16.12 Extended spectrum beta lactamase (ESBL) resistance; Z16.20 Resistance to unspecified antibiotic; N17.9 Acute kidney failure, unspecified; M79.7 Fibromyalgia; I48.91 Unspecified atrial fibrillation; E78.5 Hyperlipidemia, unspecified; E03.9 Hypothyroidism, unspecified; K21.9 Gastro-esophageal reflux disease without esophagitis; J44.9 Chronic obstructive pulmonary disease, unspecified; G30.9 Alzheimer's disease, unspecified; F02.80 Dementia in other diseases classified elsewhere, unspecified severity, without behavioral disturbance, psychotic disturbance, mood disturbance, and anxiety; R74.01 Elevation of levels of liver transaminase levels; Z88.5 Allergy status to narcotic agent; Z88.0 Allergy status to penicillin; Z88.1 Allergy status to other antibiotic agents; Z88.2 Allergy status to sulfonamides; Z85.3 Personal history of malignant neoplasm of breast; Z79.01 Long term (current) use of anticoagulants; Z90.12 Acquired absence of left breast and nipple; Z90.10 Acquired absence of unspecified breast and nipple; Z90.49 Acquired absence of other specified parts of digestive tract; Z91.018 Allergy to other foods; Z96.653 Presence of artificial knee joint, bilateral; Z79.899 Other long term (current) drug therapy; Z87.891 Personal history of nicotine dependence; Z86.711 Personal history of pulmonary embolism; Z90.710 Acquired absence of both cervix and uterus
CPT/HCPCS: 36415; 36569; 51702; 71045; 80053; 81001; 82947; 83605; 83690; 83735; 84145; 84484; 85025; 85610; 85730; 87040; 87077; 87086; 87088; 87186; 96361; 96365; 99285; J1170; J1335; J2185; J2270; J7030